=== PATIENT | male | born 1955 | race Caucasian/White ===

== ENCOUNTER 2021-09-22 08:17 | Outpatient (RCR) | payer MEDICARE, OTHER, SELFPAY ==
--- NOTE | ~2021-09-22 | XR_ITS ---
EXAMINATION: XR CHEST CLINICAL INFORMATION: pre-screen, r/o bleb COMPARISON: None TECHNIQUE: 2 views of the chest were obtained. FINDINGS: There is right-sided PICC with tip at mid SVC. No pneumothorax, airspace consolidation, pleural reaction or effusion. The costophrenic sulci are clear. There are no bullous changes or visible labs on plain film. If there is clinical concern to assess for occult volar collapse, then CT chest would be recommended for further evaluation. The heart is normal in size. The hilar and mediastinal contours are normal. Vascularity unremarkable. Bony structures are unremarkable. XR/XR chest 2V IMPRESSION: -PICC line with tip at mid SVC. -No airspace consolidation or effusion.
--- NOTE | ~2021-09-22 | XR_ITS ---
EXAMINATION: XR TOES, RIGHT CLINICAL INFORMATION: Wound right great toe COMPARISON: None TECHNIQUE: 3 views of the right toes were obtained. FINDINGS: Technical limitation secondary to overlying bandage. No acute visible fracture or dislocation. Cortical defect along the tuft of the first distal phalanx. Suggestion of soft tissue defect along the first distal phalangeal soft tissues overlying the tuft. No soft tissue gas definitively visualized. Multi joint degenerative changes greatest in the midfoot. Joint spaces and alignment are otherwise maintained. Soft tissues are unremarkable. XR/XR toe RT min 2V IMPRESSION: 1. Technical limitation secondary to overlying bandage. 2. No acute visible fracture or dislocation. 3. Cortical defect along the tuft of the first distal phalanx. Suggestion of soft tissue defect along the first distal phalangeal soft tissues overlying the tuft. Osteomyelitis not excluded. If clinically warranted consider further evaluation with MRI.
[2021-11-14 14:26] LABS: MANUAL DIFF FLAG NO
[2021-11-14 14:43] LABS: Basophils Percent Auto 0.4 % (0-2); Eosinophils Absolute Auto 0.2 X10*3/uL (0.0-0.4); Eosinophils Percent Auto 4.6 % (0-4); Hematocrit 32.3 % (42.0-52.0); Hemoglobin 10.2 g/dl (14.0-18.0); Imm Gran Abs Auto 0.03 X10*3/uL (0.00-0.03); Imm Gran Pct Auto 0.6 % (0.0-0.4); Lymphocytes Absolute Auto 1.9 X10*3/uL (1.2-4.9); Lymphocytes Percent Auto 39.5 % (20-40); Mean Corpuscular HGB Conc 31.6 g/dl (31.0-36.0); Mean Corpuscular Hemoglobin 28.5 pg (27.0-33.0); Mean Corpuscular Volume 90.2 fL (80.0-98.0); Mean Platelet Volume 9.9 fL (9.4-12.4); Monocytes Absolute Auto 0.4 X10*3/uL (0.1-1.2); Monocytes Percent Auto 7.9 % (2-11); Neutrophils Absolute Auto 2.2 x10*3/uL (2.0-8.3); Platelet Count 130 X10*3/uL (160-400); Red Blood Count 3.58 X10*6/uL (4.60-5.80); Red Cell Distribution Width 13.9 % (11.0-16.0); White Blood Count 4.8 X10*3/uL (4.8-10.8)
[2021-11-14 15:05] LABS: Anion Gap 12 (12-20); Blood Urea Nitrogen 26 mg/dL (9-16); C Reactive Protein 0.42 mg/dL (< or = 0.50); Calcium 9.2 mg/dL (8.4-10.2); Carbon Dioxide 31 mmol/L (22-29); Chloride 105 mmol/L (96-108); Estimated Glomerular Filt Rate > 60; Glucose Random 125 mg/dL (60-115); Potassium 5.7 mmol/L (3.3-5.1); Sodium 142 mmol/L (135-145)
[2021-11-14 16:12] LABS: Erythrocyte Sedimentation Rate 30 MM/HR (0-15)
[2021-11-15 04:21] LABS: Estimated Average Glucose 117 mg/dL; Hemoglobin A1c % 5.7 %
== END 2022-01-11 10:20 | disposition home or self-care (01) ==
LOC: HO.WCC 08:17
PROVIDERS: PCP Internal Medicine; Visit Provider Surgery
DX: E11.621 Type 2 diabetes mellitus with foot ulcer (principal); L97.512 Non-pressure chronic ulcer of other part of right foot with fat layer exposed; E11.69 Type 2 diabetes mellitus with other specified complication; M86.071 Acute hematogenous osteomyelitis, right ankle and foot; E11.40 Type 2 diabetes mellitus with diabetic neuropathy, unspecified; I10 Essential (primary) hypertension; Z79.2 Long term (current) use of antibiotics; Z86.19 Personal history of other infectious and parasitic diseases
CPT/HCPCS: 11042; 11043; 11044; 36415; 71046; 73660; 80048; 83036; 84134; 85025; 85652; 86140; 87071; 87073; 87076; 87077; 87185; 87186; 87205; 88304; 88305; 88311; 99212

== ENCOUNTER 2021-10-13 19:30 | Inpatient (IN) | payer MEDICARE, SELFPAY ==
--- NOTE | ~2021-10-13 | XR_ITS ---
EXAMINATION: XR FOOT, RIGHT CLINICAL INFORMATION: Evaluate for osteomyelitis. COMPARISON: Radiograph of the right foot dated from 09/27/2021. TECHNIQUE: AP, lateral, and oblique views of the right foot. FINDINGS: Complex examination. Significant progression of the cortical disruption and erosive changes in the phalanges of the first toe with also increased soft tissue thickening. Redemonstration of an underlying subcutaneous laceration in the first toe. Punctate foreign bodies are not excluded. Ankylosis and irregularities across the intertarsal and tarsometatarsal joints, similar to prior. No acute fractures. XR/XR foot RT min 3V IMPRESSION: Markedly increased osseous destruction and erosions in the first toe concerning for progression of osteomyelitis. Ankylosis and irregular margins of multiple intertarsal and tarsometatarsal joints appear similar to prior. Superimposed infection of these joints is difficult to exclude radiographically.
--- NOTE | ~2021-10-13 | US_ITS ---
EXAMINATION: RIGHT LOWER EXTREMITY DEEP VENOUS ULTRASOUND CLINICAL INFORMATION: Right lower extremity pain and edema. COMPARISON: Right lower extremity DVT study 02/12/2018 and same day right foot x-rays TECHNIQUE: Duplex Doppler imaging with compression maneuvers were performed of the right lower extremity deep venous system. FINDINGS: The visualized common femoral, femoral and popliteal veins demonstrate normal compressibility and color flow without evidence of venous thrombosis. Visualized portions of the calf veins demonstrate normal color fill-in suggesting patency. There is no evidence of a Bass's cyst. Several mildly prominent lymph nodes are noted in the right inguinal region, likely reactive. US/US venous duplex LE RT IMPRESSION: No evidence of deep venous thrombosis involving the right lower extremity.
[2021-10-13 19:36] VITALS: BP 121/76; PULSE 75; RESP 16; TEMP 36.6; O2SAT 97; BMI 35.5
--- NOTE | 2021-10-13 20:24 | ED_ITS ---
HPI - Wound/Laceration General Chief Complaint: Wound/Laceration Stated Complaint: toe inj, diabetic Time Seen by Provider: 10/13/21 20:04 Source: patient Mode of arrival: ambulatory Limitations: no limitations History of Present Illness HPI narrative: Patient is a 66-year-old male with is past medical history of type 2 diabetes, charcot foot, hypertension, hypercholesterolemia. He presents to the emergency department for evaluation of his right great toe wounds. He reports that the onset of this is just over 1 month ago when began with an ulcer to the tip of his toe. He reports that he has been evaluated in the emergency department multiple times for this, although, there were no available records for review, and he is followed by [facility]. He reports he was last on oral doxycycline 1 week ago at which point he had completed a 10 day course. He states that he is awaiting his first appointment with infectious disease next week. [facility] and he reports they debrided the ulcer to his medial toe, and then advised him to come to the emergency department for further treatment. Currently, he reports that the redness to his foot and decreased swelling have improved since recently, however, the ulcer to the right medial great toe is worse with foul smelling yellow drainage. He has pain along the medial aspect of his right leg, with swelling and erythema. Denies any pain to the foot, has neuropathy for which he is prescribed gabapentin. Denies fevers, chills, radiation of the pain up his leg, chest pain, shortness of breath, dyspnea with exertion. Patient reports that he is mostly compliant with his insulin for diabetes, though he does admit that he may miss some dosages, reports his typical fasting blood glucose levels are around 200. Related Data Home Medications Medication Instructions Recorded Confirmed atorvastatin 20 mg tablet 1 tab PO DAILY 10/13/21 10/13/21 gabapentin 300 mg capsule 1 cap PO TID 10/13/21 10/13/21 insulin aspart U-100 100 unit/mL 12 unit SUBCUT TIDWM 10/13/21 10/13/21 (3 mL) subcutaneous pen (Novolog Flexpen U-100 Insulin aspart) insulin detemir U-100 100 unit/mL 60 unit SUBCUT BID 10/13/21 10/13/21 subcutaneous solution (Levemir U-100 Insulin) lisinopril 30 mg tablet 1 tab PO DAILY 10/13/21 10/13/21 metoprolol succinate 50 mg 75 mg PO DAILY 10/13/21 10/13/21 tablet,extended release 24 hr Allergies Allergy/AdvReac Type Severity Reaction Status Date / Time No Known Allergies Allergy Verified 10/13/21 19:43 [No Known Allergies*] Review of Systems Verdana 4l Review of Systems: Verdana 4d [place] 4Bd Constitutional: [place] 4d No weight loss, fever, chills, weakness or fatigue. [place] 4Bd HEENT: [place] 4d No visual loss, blurred vision, double vision or yellow sclera. No hearing loss, sneezing, congestion, runny nose or sore throat. [place] 4Bd Skin: Ulcers to right great toe as noted in HPI Cardiovascular: No chest pain, chest pressure or chest discomfort. No palpi tations or pedal edema. Respiratory: No shortness of breath, cough or sputum production. Gastrointestinal: No anorexia, nausea, vomiting or diarrhea. No abdominal pain or blood in stool. Genitourinary: No burning micturition. No urinary frequency or incontinence. Neurologic: + numbness and tingling bilateral feet. No headache, dizziness, syncope. Musculoskeletal: No muscle pain, back pain, joint pain or stiffness. Hematologic: No bleeding or bruising. Lymphatics: No enlarged lymph nodes. Psychiatric:No depression or anxiety. Endocrine: No polyuria or polydipsia. [facility] Past Medical History Attestation statement: The following information was validated with the patient. Source: old records reviewed Social History Social History Advance Directives: No Advance Directives Information Provided: Yes Physical Exam Verdana 4l Vital Signs: Verdana 4d Verdana 4d Vital Signs: Verdana 4d [place] 4Bd Last Vital Signs Verdana 4d Threshing Operator New 4d Threshing Operator New 4d Temp 97.8 F 10/13/21 19:36 Threshing Operator New 4d Pulse 75 10/13/21 19:36 Threshing Operator New 4d Resp 16 10/13/21 19:36 BP 121/76 10/13/21 19:36 Pulse Ox 97 10/13/21 19:36 BMI result Body Mass Index 32.2 Vital signs have been reviewed as normal and appeared to be correct. Blood pressure normal.? Heart rate normal.? Respiration rate normal. Temperature nor mal.? Oxygen saturation normal. Appearance: Alert.?Oriented to person, place and time. No acute distress.?Normal affect. Eyes: Pupils equal, round and reactive to light.? ENT: Pharynx normal.?? Neck: Normal inspection.? Neck supple.?? CVS: Heart sounds normal. Normal heart rate and rhythm.? Pulses normal.?? Respiratory: No respiratory distress.? Lung sounds clear to auscultation bilaterally?? Abdomen: Soft and non-tender. Normoactive bowel sounds. No pulsatile mass.?? Extremities: 2+ pitting edema of the right lower extremities, with pain moving up medial aspect. No calf ttp? Neuro: Moves all extremities spontaneously. Sensation intact bilaterally. No focal neuro deficits. Ambulates with normal steady gait. Skin: Ulceration to tip of right great toe; [id number] pink and red granulation tissue within the wound bed with erythema and macerated tissue to the plantar the right great toe and its base. The right medial toe has a round 2 cm ul ceration, 0.5 cm depth with erythematous wound edge and black tissue on wound bed. Erythema extending base of the toes and along the medial aspect of foot with macerated tissue on the great toe. Course Course Course Narrative: Patient is a 66-year-old diabetic being evaluated for right great toe ulcers. He is well-appearing not appear toxic, afebrile, normotensive, not tachycardic. Given his history and physical exam there is cellulitis surrounding and concern for osteomyelitis, CBC, CMP, lactic acid, blood cultures, ESR, CRP ordered in addition to x-ray of the right foot. Obtained wound culture of the right great toe medial ulceration. Will treat empirically with Zosyn IV and Vanco IV. Given the degree swelling to his right lower leg in addition to pain, will obtain an ultrasound to exclude DVT. Reevaluation(s) Reevaluation #1: CBC reveals anemia with hemoglobin 9.3 and hematocrit 28.5, appears to be chronic in comparison to February 2018 hemoglobin 10.5 hematocrit 29.9. BUN and creatinine are elevated at 47 and 1.76, most recent comparable labs able to be reviewed from February 2018 indicated BUN of 14 creatinine 1.06. Lactic acid is normal at 1.4. His CRP is significantly elevated at 19.56, and ESR 109. X-ray reveals osseous destruction and erosion of the 1st toe concerning for os teomyelitis. General surgery Dr. Wakefield contacted for consultation, he is aware and plans to evaluate patient tomorrow morning. Time: 22:16 Reevaluation #2: Spoke with Dr. Mahajan from hospitalist service, patient accepted for admission. Time: 22:42 MDM - Wound/Laceration Medical Records Attestation: I reviewed the patient's medical records. Lab Data Attestation: I reviewed the patient's lab results. Result diagrams: 10/13/21 20:49 10/13/21 20:49 Labs: Lab Results 10/13/21 10/13/21 10/13/21 Range/Units 20:49 20:49 20:49 WBC 8.5 (4.8-10.8) X10*3/uL RBC 3.26 L (4.60-5.80) X10*6/uL Hgb 9.3 L (14.0-18.0) g/dl Hct 28.5 L (42.0-52.0) % MCV 87.4 (80.0-98.0) fL MCH 28.5 (27.0-33.0) pg MCHC 32.6 (31.0-36.0) g/dl RDW 13.4 (11.0-16.0) % Plt Count 223 (160-400) X10*3/uL MPV 9.2 L (9.4-12.4) fL Immature Gran % (Auto) 0.4 (0.0-0.4) % Neut % (Auto) 60.8 (45-73) % Lymph % (Auto) 27.3 (20-40) % [place] % (Auto) 9.9 (2-11) % Eos % (Auto) 1.4 (0-4) % Baso % (Auto) 0.2 (0-2) % Lymph # (Auto) 2.3 (1.2-4.9) X10*3/uL [place] # (Auto) 0.8 (0.1-1.2) X10*3/uL Eos # (Auto) 0.1 (0.0-0.4) X10*3/uL Baso # (Auto) 0.0 (0.0-0.2) X10*3/uL Abs Immat Gran (auto) 0.03 (0.00-0.03) X10*3/uL Absolute Neuts (auto) 5.2 (2.0-8.3) x10*3/uL Absolute Nucleated RBC 0.000 (0.0-0.012) X10*3/uL Nucleated RBC % (auto) 0.0 (0.0-0.2) /100WBC ESR 109 H (0-15) MM/HR Sodium 140 (135-145) mmol/L Potassium 4.6 (3.3-5.1) mmol/L Chloride 102 (96-108) mmol/L Carbon Dioxide 29 (22-29) mmol/L Anion Gap 14 (12-20) BUN 47 H (9-16) mg/dL Creatinine 1.76 H (0.5-1.4) mg/dL Estim Creat Clear Calc 60.8 Estimated GFR 39 Random Glucose 145 H (60-115) mg/dL Lactic Acid (0.5-2.0) mmol/L Calcium 9.3 (8.4-10.2) mg/dL Magnesium 2.2 (1.6-2.6) mg/dL Total Bilirubin 0.6 (0.0-1.0) mg/dL AST 11 (5-37) U/L ALT 10 (0-40) U/L Alkaline Phosphatase 83 (39-117) U/L C-Reactive Protein 19.56 H (< or = 0.50) mg/dL B-Natriuretic Peptide (<100) pg/mL Total Protein 7.7 (6.5-8.0) g/dL Albumin 3.4 L (3.5-5.0) g/dL 10/13/21 10/13/21 Range/Units 20:49 20:49 WBC (4.8-10.8) X10*3/uL RBC (4.60-5.80) X10*6/uL Hgb (14.0-18.0) g/dl Hct (42.0-52.0) % MCV (80.0-98.0) fL MCH (27.0-33.0) pg MCHC (31.0-36.0) g/dl RDW (11.0-16.0) % Plt Count (160-400) X10*3/uL MPV (9.4-12.4) fL Immature Gran % (Auto) (0.0-0.4) % Neut % (Auto) (45-73) % Lymph % (Auto) (20-40) % [place] % (Auto) (2-11) % Eos % (Auto) (0-4) % Baso % (Auto) (0-2) % Lymph # (Auto) (1.2-4.9) X10*3/uL [place] # (Auto) (0.1-1.2) X10*3/uL Eos # (Auto) (0.0-0.4) X10*3/uL Baso # (Auto) (0.0-0.2) X10*3/uL Abs Immat Gran (auto) (0.00-0.03) X10*3/uL Absolute Neuts (auto) (2.0-8.3) x10*3/uL Absolute Nucleated RBC (0.0-0.012) X10*3/uL Nucleated RBC % (auto) (0.0-0.2) /100WBC ESR (0-15) MM/HR Sodium (135-145) mmol/L Potassium (3.3-5.1) mmol/L Chloride (96-108) mmol/L Carbon Dioxide (22-29) mmol/L Anion Gap (12-20) BUN (9-16) mg/dL Creatinine (0.5-1.4) mg/dL Estim Creat Clear Calc Estimated GFR Random Glucose (60-115) mg/dL Lactic Acid 1.4 (0.5-2.0) mmol/L Calcium (8.4-10.2) mg/dL Magnesium (1.6-2.6) mg/dL Total Bilirubin (0.0-1.0) mg/dL AST (5-37) U/L ALT (0-40) U/L Alkaline Phosphatase (39-117) U/L C-Reactive Protein (< or = 0.50) mg/dL B-Natriuretic Peptide 112 H (<100) pg/mL Total Protein (6.5-8.0) g/dL Albumin (3.5-5.0) g/dL Imaging Data right foot x-ray: Attestation: I personally reviewed and interpreted this imaging study as follows: Radiologist's impression: IMPRESSION: Markedly increased osseous destruction and erosions in the first toe concerning for progression of osteomyelitis. ? Ankylosis and irregular margins of multiple intertarsal and tarsometatarsal joints appear similar to prior. Superimposed infection of these joints is difficult to exclude radiographically. Right LE US: Attestation: I personally reviewed and interpreted this imaging study as follows: Radiologist's impression: IMPRESSION: No evidence of deep venous thrombosis involving the right lower extremity. Discharge Plan Discharge Clinical Impression: Diabetic ulcer of right great toe
[2021-10-13 20:57] LABS: MANUAL DIFF FLAG NO
[2021-10-13 20:58] LABS: Basophils Percent Auto 0.2 % (0-2); Eosinophils Absolute Auto 0.1 X10*3/uL (0.0-0.4); Eosinophils Percent Auto 1.4 % (0-4); Hematocrit 28.5 % (42.0-52.0); Hemoglobin 9.3 g/dl (14.0-18.0); Imm Gran Abs Auto 0.03 X10*3/uL (0.00-0.03); Imm Gran Pct Auto 0.4 % (0.0-0.4); Lymphocytes Absolute Auto 2.3 X10*3/uL (1.2-4.9); Lymphocytes Percent Auto 27.3 % (20-40); Mean Corpuscular HGB Conc 32.6 g/dl (31.0-36.0); Mean Corpuscular Hemoglobin 28.5 pg (27.0-33.0); Mean Corpuscular Volume 87.4 fL (80.0-98.0); Mean Platelet Volume 9.2 fL (9.4-12.4); Monocytes Absolute Auto 0.8 X10*3/uL (0.1-1.2); Monocytes Percent Auto 9.9 % (2-11); Neutrophils Absolute Auto 5.2 x10*3/uL (2.0-8.3); Neutrophils Percent Auto 60.8 % (45-73); Platelet Count 223 X10*3/uL (160-400); Red Blood Count 3.26 X10*6/uL (4.60-5.80); Red Cell Distribution Width 13.4 % (11.0-16.0); White Blood Count 8.5 X10*3/uL (4.8-10.8)
[2021-10-13 21:08] LABS: Lactic Acid 1.4 mmol/L (0.5-2.0)
[2021-10-13 21:11] VITALS: BMI 32.2
[2021-10-13 21:17] LABS: Alanine Aminotransferase 10 U/L (0-40); Albumin Level 3.4 g/dL (3.5-5.0); Alkaline Phosphatase 83 U/L (39-117); Anion Gap 14 (12-20); Aspartate Amino Transferase 11 U/L (5-37); Bilirubin Total 0.6 mg/dL (0.0-1.0); Blood Urea Nitrogen 47 mg/dL (9-16); C Reactive Protein 19.56 mg/dL (< or = 0.50); Calcium 9.3 mg/dL (8.4-10.2); Carbon Dioxide 29 mmol/L (22-29); Chloride 102 mmol/L (96-108); Creatinine Clr Calc Pharmacy 60.8; Estimated Glomerular Filt Rate 39; Glucose Random 145 mg/dL (60-115); Magnesium 2.2 mg/dL (1.6-2.6); Potassium 4.6 mmol/L (3.3-5.1); Sodium 140 mmol/L (135-145); Total Protein 7.7 g/dL (6.5-8.0)
[2021-10-13 21:18] LABS: B Type Natriuretic Peptide 112 pg/mL (<100)
[2021-10-13 21:30] LABS: Erythrocyte Sedimentation Rate 109 MM/HR (0-15)
[2021-10-13] MEDS: Piperacillin Sodium/Tazobactam 3.375 GM in 0.9 % Sodium Chloride 50 ML IV (21:36)
--- NOTE | 2021-10-13 21:38 | PHA.MEDREC ---
Pharmacy Consult ? Medication Reconciliation Pharmacy has completed the medication reconciliation.
--- NOTE | 2021-10-13 21:45 | PHA.PROG ---
Admission Date/Time: Indication: other, skin Weight in k.3 kg Adjusted body weight in K.78 [place] body weight in K.1 Obesity Dosing Indication % IBW: Serum Creatinine - Last 168 Hours 10/13/21 20:49 Creatinine 1.76 H Estimated CrCl and GFR - Last 168 Hours 10/13/21 20:49 Estim Creat Clear Calc 60.8 Estimated GFR 39 Vancomycin Loading Dose: 1750 Current Vancomycin Dosing Regimen: 1250mg q24h Vancomycin Monitoring using AUC goal of 400 - 600 range with trough as surrogate marker:auc 533; trough 14.3 Date and Time for next Vancomycin Level to be drawn: draw 10/15 @1900 Pharmacist Comments on Vancomycin Plan: used obese model since actual is >120% ibw Vancomycin dosing will take advantage of [employer] as a clinical decision support tool that uses Bayesian modeling to calculate individual patient's pharmacokinetic parameters and forecast the patient's drug concentration time course with the target goal AUC 24 range of 400 - 600 mg/L/hr.
[2021-10-13] MEDS: vancomycin HCL 1,000 MG, vancomycin HCL 750 MG in 0.9 % Sodium Chloride 500 ML 267.5 MG IV (22:10)
--- NOTE | 2021-10-13 22:41 | P.HPHOSP_ITS ---
History of Present Illness Date of Service: 10/13/21 Chief Complaint: diabetic foot ulcer 66-year-old male with a past medical history of hypertension, hyperlipidemia, diabetes, neuropathy, diabetic foot ulcer, char[place]ote foot presented the hospital with a chief complaint of right great toe ulcer. Patient reports that he has been having diabetic foot ulcers on the his right great toe tip and bottom for about 2 months and has been following with the wound clinic and over the past couple days he had ulcer on the medial side of the great toe; went to the wound clinic today who suggested him to go to the ER for possible debridement. Patient reports that he recently finished course of doxycycline about a week ago 40 ft infection. Denies any fevers. Denies any chest pain or palpitations. Denies any numbness tingling or focal weakness. Review of all other systems is negative except mentioned above ER course: Per ER team patient noted to have ulcers on his great toe, moderate erythema on the distal 3rd of the dorsum of the foot, tenderness, warmth; given IV vancomycin and Zosyn. X-ray showed osteomyelitis. Notified General surgery. PMFSH Pertinent family history: reviewed Social History Advance Directives: No Advance Directives Information Provided: Yes Meds Allergies Allergy/AdvReac Type Severity Reaction Status Date / Time No Known Allergies Allergy Verified 10/13/21 19:43 [No Known Allergies*] Active Medications: Current Medications Vancomycin HCl 1,000 mg/Vancomycin HCl 750 mg/ Sodium Chloride 535 mls @ 267.5 mls/hr IV ONCE ONE Stop: 10/13/21 22:50 Last Admin: 10/13/21 22:10 Dose: 267.5 mls/hr Documented by: Vancomycin HCl 1,250 mg/ (Sodium Chloride) 250 mls @ 166.667 mls/hr IV Q24H KELSEY Piperacillin Sod/Tazobactam (Sod 3.375 gm/ Sodium Chloride) 50 mls @ 100 mls/hr IV Q6H KELSEY Pharmacy Consult (Consult Rx Perform Med Rec) 1 each MISCELLANE ONCE PRN PRN Reason: Consult order Pharmacy Consult (Consult Rx Vancomycin Dosing) 1 each MISCELLANE DAILY PRN PRN Reason: Consult order Home Medications Medication Instructions Recorded Confirmed Last Taken Type atorvastatin 20 1 tab PO DAILY 02/11/2910/13/21 10/12/21 History mg tablet gabapentin 300 mg 1 cap PO TID 10/13/21 10/13/21 10/13/21 History capsule insulin aspart 12 unit SUBCUT 10/13/21 10/13/21 10/13/21 History U-100 100 unit/mL TIDWM (3 mL) subcutaneous pen (Novolog Flexpen U-100 Insulin aspart) insulin detemir 60 unit SUBCUT 10/13/21 10/13/21 10/13/21 History U-100 100 unit/mL BID subcutaneous solution (Levemir U-100 Insulin) lisinopril 30 mg 1 tab PO DAILY 10/13/21 10/13/21 10/13/21 History tablet metoprolol 75 mg PO DAILY 10/13/21 10/13/21 10/13/21 History succinate 50 mg tablet,extended release 24 hr Physical Exam Verdana 4l Vital Signs and Narrative: Verdana 4d Verdana 4d Vital Signs: Verdana 4d Verdana 4Bd Last Vital Signs Verdana 4d Ball Sorter New 4d Ball Sorter New 4d Temp 97.8 F 10/13/21 19:36 Ball Sorter New 4d Pulse 75 10/13/21 19:36 Ball S[place] New 4d Resp 16 10/13/21 19:36 BP 121/76 10/13/21 19:36 Pulse Ox 97 10/13/21 19:36 BMI result Body Mass Index 32.2 Gen: Appears be in no acute distress HEENT: NCAT, Moist mucosa. Pulmonary: Vesicular breath sounds, fair air entry CVS: Normal S1-S2 Abdomen: BS+, Soft, Nontender; Extremities: Warm well perfused; Noted to have ulcer on the tip of the great toe, medial side of the great toe, with dark tissue on the medial ulcer inside status post irrigation it appeared puentes colored. Pictures shown below Neuro: Alert and awake. Results Labs CBC and Chem 7: 10/13/21 20:49 10/13/21 20:49 Labs: Laboratory Results - last 24 hr 10/13/21 10/13/21 10/13/21 20:49 20:49 20:49 MCV 87.4 MCH 28.5 MCHC 32.6 RDW 13.4 Plt Count 223 MPV 9.2 L Immature Gran % (Auto) 0.4 Neut % (Auto) 60.8 Lymph % (Auto) 27.3 [place] % (Auto) 9.9 Eos % (Auto) 1.4 Baso % (Auto) 0.2 Lymph # (Auto) 2.3 [place] # (Auto) 0.8 Eos # (Auto) 0.1 Baso # (Auto) 0.0 Abs Immat Gran (auto) 0.03 Absolute Neuts (auto) 5.2 Absolute Nucleated RBC 0.000 Nucleated RBC % (auto) 0.0 ESR 109 H Anion Gap 14 Creatinine 1.76 H Estim Creat Clear Calc 60.8 Estimated GFR 39 Random Glucose 145 H Lactic Acid Calcium 9.3 Magnesium 2.2 Total Bilirubin 0.6 AST 11 ALT 10 Alkaline Phosphatase 83 C-Reactive Protein 19.56 H B-Natriuretic Peptide Total Protein 7.7 Albumin 3.4 L 10/13/21 10/13/21 20:49 20:49 MCV MCH MCHC RDW Plt Count MPV Immature Gran % (Auto) Neut % (Auto) Lymph % (Auto) [place] % (Auto) Eos % (Auto) Baso % (Auto) Lymph # (Auto) [place] # (Auto) Eos # (Auto) Baso # (Auto) Abs Immat Gran (auto) Absolute Neuts (auto) Absolute Nucleated RBC Nucleated RBC % (auto) ESR Anion Gap Creatinine Estim Creat Clear Calc Estimated GFR Random Glucose Lactic Acid 1.4 Calcium Magnesium Total Bilirubin AST ALT Alkaline Phosphatase C-Reactive Protein B-Natriuretic Peptide 112 H Total Protein Albumin Imaging Radiologist's Impressions: Impressions Foot X-Ray 10/13/21 21:18 IMPRESSION: Markedly increased osseous destruction and erosions in the first toe concerning for progression of osteomyelitis. Ankylosis and irregular margins of multiple intertarsal and tarsometatarsal joints appear similar to prior. Superimposed infection of these joints is difficult to exclude radiographically. Venous Duplex 10/13/21 22:01 IMPRESSION: No evidence of deep venous thrombosis involving the right lower extremity. Assessment and Plan (1) Diabetic ulcer of right great toe: Status: Acute Plan 66-year-old male with a past medical history of hypertension, hyperlipidemia, diabetes, diabetic foot ulcer , presented to the hospital with a chief complaint of right great toe ulcer. Admitted for further management of diabetic foot ulcer/ Cellulitis/ osteomyelitis Diabetic foot ulcer /cellulitis / osteomyelitis: foot x-ray showed: Markedly increased osseous destruction and erosions in the first toe concerning for progression of osteomyelitis.Ankylosis and irregular margins of multiple intertarsal and tarsometatarsal joints appear similar to prior. Superimposed infection of these joints is difficult to exclude radiographically. Continue IV vancomycin and Zosyn General surgery was made aware Will also consult ID for further recommendations. SILVA: Unknown baseline creatinine. Gentle IV fluids. Avoid nephrotoxins. History of hypertension: Patient on lisinopril metoprolol. hold lisinopril given SILVA History of diabetes: patient on Levemir U 100 -->60 units b.i.d., aspart U 100 -->12 units t.i.d. with meals at home. Will keep the patient on Lantus 45 units b.i.d. and insulin sliding scale for now. Adjust insulins as needed. DVT prophylaxis: Lovenox Code status: Full code Quality Stroke Does the patient have a stroke diagnosis?: No VTE Prior VTE?: No VTE Risk Level:: Medical - moderate - high VTE Device Contraindication: Treatment Not Indicated VTE Drug Contraindication: N/A - Med Ordered
[2021-10-13 23:03] LABS: COVID-19 Test Negative (Negative)
--- NOTE | 2021-10-13 23:20 | PC.NURSE ---
PT WILL BE MOVED TO THE MAIN ED REPORT GIVEN TO ИВАН LUNA WHO WILL RESUME PT CARE. PT HAS CALL [facility] IN PLACE.
[2021-10-14] VITALS (7 sets, daily range): BP systolic 119–173; BP diastolic 48–75; PULSE 49–82; RESP 18–20; TEMP 36.1–36.6; O2SAT 95–100; BMI 32.5
--- NOTE | 2021-10-14 03:10 | PC.NURSE ---
Report given to M/S RN. Plan for transport to floor.
[2021-10-14] MEDS: Enoxaparin Sodium 40 MG/0.4 ML SYRINGE SUBCUT ×2 (03:17→23:08)
[2021-10-14] MEDS: Piperacillin Sodium/Tazobactam 3.375 GM in 0.9 % Sodium Chloride 50 ML IV ×4 (04:00→23:08)
[2021-10-14 05:44] LABS: MANUAL DIFF FLAG NO
[2021-10-14 05:50] LABS: Basophils Percent Auto 0.1 % (0-2); Eosinophils Absolute Auto 0.2 X10*3/uL (0.0-0.4); Eosinophils Percent Auto 2.4 % (0-4); Hematocrit 28.3 % (42.0-52.0); Hemoglobin 8.9 g/dl (14.0-18.0); Imm Gran Abs Auto 0.04 X10*3/uL (0.00-0.03); Imm Gran Pct Auto 0.5 % (0.0-0.4); Lymphocytes Absolute Auto 2.3 X10*3/uL (1.2-4.9); Lymphocytes Percent Auto 31.1 % (20-40); Mean Corpuscular HGB Conc 31.4 g/dl (31.0-36.0); Mean Corpuscular Hemoglobin 28.1 pg (27.0-33.0); Mean Corpuscular Volume 89.3 fL (80.0-98.0); Mean Platelet Volume 9.7 fL (9.4-12.4); Monocytes Absolute Auto 0.8 X10*3/uL (0.1-1.2); Monocytes Percent Auto 10.6 % (2-11); Neutrophils Absolute Auto 4.2 x10*3/uL (2.0-8.3); Neutrophils Percent Auto 55.3 % (45-73); Platelet Count 206 X10*3/uL (160-400); Red Blood Count 3.17 X10*6/uL (4.60-5.80); Red Cell Distribution Width 13.4 % (11.0-16.0); White Blood Count 7.5 X10*3/uL (4.8-10.8)
[2021-10-14 06:18] LABS: Anion Gap 12 (12-20); Blood Urea Nitrogen 39 mg/dL (9-16); Carbon Dioxide 30 mmol/L (22-29); Chloride 102 mmol/L (96-108); Creatinine Clr Calc Pharmacy 84.7; Estimated Glomerular Filt Rate 57; Glucose Random 200 mg/dL (60-115); Potassium 5.1 mmol/L (3.3-5.1); Sodium 139 mmol/L (135-145)
[2021-10-14 07:19] LABS: Glucose, Whole Blood 174 mg/dL (60-115)
--- NOTE | 2021-10-14 07:46 | P.CONGS_ITS ---
History of Present Illness Consult details Consult date: 10/14/21 Narrative: 66 year old male patient with a history of DM, peripheral neuropathy, presenting from the wound care center with a non healing ulcer of the right great toe. She was seen earlier yesterday for a wound check and was noted to have an ulcer in the great toe with increased foul smelling discharge. He was sent to the ED and admitted to the medical service for IV antibiotics. He was previously on Doxy but was awaiting an infectious disease consultation at [facility] and was off antibiotics for about a week at the time of his admission. He reports pain and swelling in the right leg and ankle. Review of Systems Verdana 4l Review of Systems: Yes all other systems are reviewed and Verdana 4d are negative Verdana 4l Constitutional: Verdana 4d Constitutional: Verdana 4d Verdana 4d Denies chills, Denies fever(s), Denies headache(s) and Denies poor appetite Verdana 4l ENT: Verdana 4d Denies dizziness and Denies headache(s) Verdana 4l Cardiovascular: Verdana 4d Cardiovascular: Verdana 4d Verdana 4d Denies chest pain, Denies rapid heart rate, Denies palpitations and Denies slow heart rate Verdana 4l Respiratory: Verdana 4d Verdana 4d Respiratory: Verdana 4d Denies chest congestion, Denies cough, Denies pain on inspiration and Denies wheezing Verdana 4l Gastrointestinal: Verdana 4d Gastrointestinal: Verdana 4d Verdana 4d Denies abdominal pain, Denies bloating, Denies change in stool character, Denies constipation, Denies diarrhea, Denies nausea, Denies vomiting and Denies hematemesis Verdana 4l Musculoskeletal: Verdana 4d Musculoskeletal: Verdana 4d Verdana 4d Denies back pain, Reports arthralgias, Reports joint swelling and Reports numbness Verdana 4l Integumentary/Breasts: Verdana 4d Skin/Breast: Verdana 4d Verdana 4d Denies change in pigmentation, Denies erythema and Denies rash Verdana 4l Neurologic: Verdana 4d Denies dizziness, Denies headache(s) and Reports numbness Verdana 4l Psychiatric: Verdana 4d Verdana 4d Psychiatric: Verdana 4d Denies anxiety and Denies depression Verdana 4l Endocrine: Verdana 4d Verdana 4d Endocrine: Verdana 4d Denies palpitations Verdana 4l Hematologic/Lymphatic: Verdana 4d Hematologic/Lymphatic: Verdana 4d Verdana 4d Denies easy bleeding, Denies easy bruising and Denies lymphadenopathy Verdana 4l Allergic/Immunologic: Verdana 4d Allergic/Immunologic: Verdana 4d Verdana 4d Denies wheezing [facility] Social History Social History Household Members: Family Housing: House Do you presently have visiting nurse or other home services: No Patient Tobacco Use Status: Never used Tobacco Use of substances other than those prescribed or required for medical reasons: No Have you been hit, kicked, punched, or otherwise hurt by someone within the past year? If so, by whom?: No Do you feel safe in your current relationship?: Yes Is there a partner from a previous relationship who is making you feel unsafe now?: No Are you made to feel afraid or neglected: No Advance Directives: No Advance Directives Information Provided: Yes Do you have thoughts of harming others: None Do you have a plan to hurt others: No Plan Recently lost weight without trying: No Nutrition Risks: No Nutritional Risk Poor oral hygiene: No Meds Allergies Allergy/AdvReac Type Severity Reaction Status Date / Time No Known Allergies Allergy Verified 10/13/21 19:43 [No Known Allergies*] Active Medications: Current Medications Acetaminophen (Acetaminophen 325 Mg Tablet) 650 mg PO Q6H PRN PRN Reason: Pain, Mild (Pain Scale 1-3) Atorvastatin Calcium (Atorvastatin Calcium 20 Mg Tablet) 20 mg PO DAILY [facility] Dextrose (Dextrose 50 % 25 Gm/50 Ml Syringe) 25 gm IVPUSH Q15M PRN; Protocol PRN Reason: per Hypoglycemia Standing Ord. Enoxaparin Sodium (Enoxaparin Sodium 40 Mg/0.4 Ml Syringe) 40 mg SUBCUT Q24H [facility] Last Admin: 10/14/21 03:17 Dose: 40 mg Documented by: Gabapentin (Gabapentin 300 Mg Capsule) 300 mg PO TID [facility] Glucose (Glucose Gel 15 Gm Gel..Gram.) 15 gm PO Q15M PRN; Protocol PRN Reason: per Hypoglycemia Standing Ord. Vancomycin HCl 1,250 mg/ (Sodium Chloride) 250 mls @ 166.667 mls/hr IV Q24H [facility] Piperacillin Sod/Tazobactam (Sod 3.375 gm/ Sodium Chloride) 50 mls @ 100 mls/hr IV Q6H [facility] Last Infusion: 10/14/21 05:01 Dose: Infused Documented by: Insulin Glargine (Insulin Glargine,Hum.Rec.Anlog 100 Unit/Ml 10 Ml Vial) 45 unit SUBCUT BID [facility] Insulin Human Lispro (Insulin Lispro 100 Unit/Ml 3 Ml Vial) 0 unit SUBCUT QIDACHS [facility]; Protocol Melatonin (Melatonin 3 Mg Tablet) 6 mg PO BEDTIME PRN PRN Reason: Insomnia Metoprolol Succinate (Metoprolol Succinate Er 25 Mg Tab.Er.24h) 75 mg PO DAILY [facility]; Protocol Pharmacy Consult (Consult Rx Perform Med Rec) 1 each MISCELLANE ONCE PRN PRN Reason: Consult order Pharmacy Consult (Consult Rx Vancomycin Dosing) 1 each MISCELLANE DAILY PRN PRN Reason: Consult order Senna (Sennosides 8.6 Mg Tablet) 17.2 mg PO BEDTIME PRN PRN Reason: Constipation Sodium Chloride (0.9 % Sodium Chloride Flush 3 Ml Syringe) 3 ml IVFLUSH QSHIFT [facility] Last Admin: 10/14/21 01:45 Dose: Not Given Documented by: Home Medications Medication Instructions Recorded Confirmed Last Taken Type atorvastatin 20 1 tab PO DAILY 10/13/21 10/13/21 10/12/21 History mg tablet gabapentin 300 mg 1 cap PO TID 10/13/21 10/13/21 10/13/21 History capsule insulin aspart 12 unit SUBCUT 10/13/21 10/13/21 10/13/21 History U-100 100 unit/mL TIDWM (3 mL) subcutaneous pen (Novolog Flexpen U-100 Insulin aspart) insulin detemir 60 unit SUBCUT 10/13/21 10/13/21 10/13/21 History U-100 100 unit/mL BID subcutaneous solution (Levemir U-100 Insulin) lisinopril 30 mg 1 tab PO DAILY 10/13/21 10/13/21 10/13/21 History tablet metoprolol 75 mg PO DAILY 10/13/21 10/13/21 10/13/21 History succinate 50 mg tablet,extended release 24 hr Physical Exam Verdana 4l Vital Signs: Verdana 4d Verdana 4d Vital Signs: Verdana 4d Verdana 4Bd Last Vital Signs Verdana 4d Linux Admin New 4d Linux Admin New 4d Temp 97 F 10/14/21 07:15 Linux Admin New 4d Pulse 61 10/14/21 07:15 Linux Admin New 4d Resp 20 10/14/21 07:15 BP 135/64 10/14/21 07:15 Pulse Ox 95 10/14/21 07:15 BMI result Body Mass Index 32.5 Const: General: cooperative, comfortable and well developed Nutritional Appearance: well nourished Orientation/consciousness: patient oriented x3 Eyes: Sclerae: sclerae normal EOM: EOMs intact bilaterally Neck: Neck: Yes normal visual inspection Resp: Effort & Inspection: normal respiratory effort, no cough, no respiratory distress and no stridor Cardio: Jugular venous distension: no JVD GI: Inspection: Yes normal to inspection Palpation (GI): Soft to palpation, nontender, no guarding and not rigid Skin: General skin exam: dry skin Rashes: no rashes Neuro: General: patient oriented x3 and no focal motor deficits Extrem: Other: Ulcer of right great toe, debrided to bleeding viable tissue. Ulcer extends to bone. Wounds packed with Silver Alginate. General: Yes full ROM and Yes no clubbing, cyanosis or edema Psych: Appearance: grossly normal Results Labs Result diagrams: 10/14/21 05:26 10/14/21 05:26 Labs: Abnormal lab results 10/13/21 10/13/21 10/13/21 Range/Units 20:49 20:49 20:49 RBC 3.26 L (4.60-5.80) X10*6/uL Hgb 9.3 L (14.0-18.0) g/dl Hct 28.5 L (42.0-52.0) % MPV 9.2 L (9.4-12.4) fL Immature Gran % (Auto) (0.0-0.4) % Abs Immat Gran (auto) (0.00-0.03) X10*3/uL ESR 109 H (0-15) MM/HR Carbon Dioxide (22-29) mmol/L BUN 47 H (9-16) mg/dL Creatinine 1.76 H (0.5-1.4) mg/dL POC Glucose (60-115) mg/dL Random Glucose 145 H (60-115) mg/dL C-Reactive Protein 19.56 H (< or = 0.50) mg/dL B-Natriuretic Peptide (<100) pg/mL Albumin 3.4 L (3.5-5.0) g/dL 10/13/21 10/14/21 10/14/21 Range/Units 20:49 05:26 05:26 RBC 3.17 L (4.60-5.80) X10*6/uL Hgb 8.9 L (14.0-18.0) g/dl Hct 28.3 L (42.0-52.0) % MPV (9.4-12.4) fL Immature Gran % (Auto) 0.5 H (0.0-0.4) % Abs Immat Gran (auto) 0.04 H (0.00-0.03) X10*3/uL ESR (0-15) MM/HR Carbon Dioxide 30 H (22-29) mmol/L BUN 39 H (9-16) mg/dL Creatinine (0.5-1.4) mg/dL POC Glucose (60-115) mg/dL Random Glucose 200 H D (60-115) mg/dL C-Reactive Protein (< or = 0.50) mg/dL B-Natriuretic Peptide 112 H (<100) pg/mL Albumin (3.5-5.0) g/dL 10/14/21 Range/Units 07:15 RBC (4.60-5.80) X10*6/uL Hgb (14.0-18.0) g/dl Hct (42.0-52.0) % MPV (9.4-12.4) fL Immature Gran % (Auto) (0.0-0.4) % Abs Immat Gran (auto) (0.00-0.03) X10*3/uL ESR (0-15) MM/HR Carbon Dioxide (22-29) mmol/L BUN (9-16) mg/dL Creatinine (0.5-1.4) mg/dL POC Glucose 174 H (60-115) mg/dL Random Glucose (60-115) mg/dL C-Reactive Protein (< or = 0.50) mg/dL B-Natriuretic Peptide (<100) pg/mL Albumin (3.5-5.0) g/dL Short CBC 10/13/21 10/14/21 Range/Units 20:49 05:26 WBC 8.5 7.5 (4.8-10.8) X10*3/uL Hgb 9.3 L 8.9 L (14.0-18.0) g/dl Hct 28.5 L 28.3 L (42.0-52.0) % Plt Count 223 206 (160-400) X10*3/uL BMP 10/13/21 10/14/21 20:49 05:26 Sodium 140 139 Potassium 4.6 5.1 Chloride 102 102 Carbon Dioxide 29 30 H BUN 47 H 39 H Creatinine 1.76 H 1.27 Calcium 9.3 9.0 Liver Function 10/13/21 Range/Units 20:49 Total Bilirubin 0.6 (0.0-1.0) mg/dL AST 11 (5-37) U/L ALT 10 (0-40) U/L Alkaline Phosphatase 83 (39-117) U/L Albumin 3.4 L (3.5-5.0) g/dL All other labs normal. Assessment and Plan (1) Diabetic ulcer of right great toe: Status: Acute Plan 66 year old male patient with DM with a non-healing ulcer of the right great toe. Patient will likely need 6 weeks IV antibiotics for osteo, although there is a high likelihood of requiring an amputation of the great toe. Recommend daily dressing changes with Silver alginate and dry dressings. ID consult. Procedures Date of Service Date of Service: 10/14/21
[2021-10-14] MEDS: Metoprolol Succinate ER 25 MG TAB.ER.24H 75 MG PO (08:26)
[2021-10-14 08:28] LABS: Immature Retic Fraction 16.2 % (2.3-13.4); Retic HGB Equivalent 27.7 pg (30.0-35.0); Reticulocyte Percent 1.7 % (0.5-1.8); Reticulocytes Absolute 0.054 X10*6/uL (0.026-0.095)
[2021-10-14] MEDS: Gabapentin 300 MG CAPSULE PO ×3 (08:30→21:28)
[2021-10-14] MEDS: Insulin Glargine,Hum.rec.anlog 100 UNIT/ML 10 ML VIAL 45 UNIT SUBCUT ×2 (08:30→21:27)
[2021-10-14] MEDS: Atorvastatin Calcium 20 MG TABLET PO (08:30)
[2021-10-14] MEDS: 0.9 % Sodium Chloride Flush 3 ML SYRINGE IVFLUSH ×3 (08:30→23:09)
[2021-10-14] MEDS: Insulin Lispro 100 UNIT/ML 3 ML VIAL SUBCUT ×4 (08:30→21:27)
[2021-10-14 08:44] LABS: Iron 26 mcg/dL (45-160); Percent Iron Saturation 12 % (15-50); Total Iron Binding Capacity 209 mcg/dL (228-428); Unsaturated Iron Binding 183 ug/dL
[2021-10-14 08:49] LABS: Estimated Average Glucose 154 mg/dL
--- NOTE | 2021-10-14 09:02 | HE.PHANOTE ---
Vancomycin Dosing Addendum Patients Scr improved. Increased dose to 1500 mg q24h with next level 10/15/21 @1900.
[2021-10-14 09:07] LABS: Ferritin 240 ng/mL (20-250)
[2021-10-14 09:35] LABS: Vitamin B12 147 pg/mL (200-900)
--- NOTE | 2021-10-14 10:05 | PC.NURSE ---
Skin/wound assessment completed. Patient has Grade 3 diabetic ulcers to right tip of great toe and right medial great toe. Wounds cleansed with wound cleanser then silver alginate applied covered with non woven gauze and roll gauze. Cellulitis to right foot and lower extremity with edema. Both legs have dry flaky skin. Sween 24 moisturizer applied. No other skin issues noted at this time.
--- NOTE | 2021-10-14 10:28 | MHC.CM.PN ---
IMM 10/14/21, EMR REVIEWED, PT ADMITTED W/DIABETIC FOOT ULCER AND OSTEOMYELITIS, PT LIVES W/ELDERLY MOTHER, PT IS INDEPENDENT W/CARE, NO DME OTHER THAT A SPECIAL BOOT AND NO HOME SERVICES, DCP DISCUSSED W/PT AND PT REPORTS HE FEELS IF HE NEEDS IV ABX FOR 6 WKS HE WOULD BE ABLE TO DO IT AND HIS DTR MELVI [phone] COULD ASSIST IF NEEDED, PT PREFERS NOT TO GO TO [facility], PT UNSURE WHO HIS [facility] DOCTOR IS IT KEEPS CHANGING, HIS LAST PCP BEFORE CHANGE WAS DR PATRICK, PT EDUCATED ON HCP'S AND IS CURRENTLY DECLINING TO COMPLETE, D/C PLAN: HOME W/NEW VNA &HI FOR IV ABX VS HOME W/VNA &PT, FAMILY FOR TRANSPORT. MODERNA VACCINE X2
[2021-10-14] MEDS: Ferrous Sulfate 324 MG TABLET.DR PO (11:12)
[2021-10-14 11:23] LABS: Glucose, Whole Blood 231 mg/dL (60-115)
--- NOTE | 2021-10-14 11:40 | P.PNIM_ITS ---
Subjective Subjective Date of Service: 10/14/21 Physical Exam Verdana 4l Vital Signs: Verdana 4d Verdana 4d Vital Signs: Verdana 4d Verdana 4Bd Last Vital Signs Verdana 4d Engineering Operations Leader 4d Engineering Operations Leader New 4d Temp 97.3 F 10/14/21 11:13 Engineering Operations Leader New 4d Pulse 82 10/14/21 11:13 Engineering Operations Leader New 4d Resp 20 10/14/21 11:13 BP 119/72 10/14/21 11:13 Pulse Ox 98 10/14/21 11:13 BMI result Body Mass Index 32.5 Gen: in no acute distress HEENT: sclera anicteric, moist mucus membranes Neck: supple Lungs: clear to auscultation bilaterally Heart: regular rate and rhythm, no murmurs Abd: soft, non-tender, non-distended Ext: no edema Skin: plantar and medial ulcers of right great toe Neuro: alert and oriented x3, no focal findings Psych: appropriate affect Objective Data Active Medications Acetaminophen (Acetaminophen 325 Mg Tablet) 650 mg PO Q6H PRN PRN Reason: Pain, Mild (Pain Scale 1-3) Atorvastatin Calcium (Atorvastatin Calcium 20 Mg Tablet) 20 mg PO DAILY [facility] Last Admin: 10/14/21 08:30 Dose: 20 mg Documented by: MY Cyanocobalamin (Cyanocobalamin (Vitamin B-12) 1,000 Mcg/Ml Vial) 1,000 mcg IM DAILY@1500 [facility] Stop: 10/17/21 15:01 Dextrose (Dextrose 50 % 25 Gm/50 Ml Syringe) 25 gm IVPUSH Q15M PRN; Protocol PRN Reason: per Hypoglycemia Standing Ord. Enoxaparin Sodium (Enoxaparin Sodium 40 Mg/0.4 Ml Syringe) 40 mg SUBCUT Q24H [facility] Last Admin: 10/14/21 03:17 Dose: 40 mg Documented by: GLADYS Ferrous Sulfate (Ferrous Sulfate 324 Mg Tablet.) 324 mg PO DAILY [facility] Last Admin: 10/14/21 11:12 Dose: 324 mg Documented by: MY Gabapentin (Gabapentin 300 Mg Capsule) 300 mg PO TID [facility] Last Admin: 10/14/21 08:30 Dose: 300 mg Documented by: MY Glucose (Glucose Gel 15 Gm Gel..Gram.) 15 gm PO Q15M PRN; Protocol PRN Reason: per Hypoglycemia Standing Ord. Piperacillin Sod/Tazobactam (Sod 3.375 gm/ Sodium Chloride) 50 mls @ 100 mls/hr IV Q6H [facility] Last Admin: 10/14/21 11:12 Dose: 100 mls/hr Documented by: MY Vancomycin HCl 1,500 mg/ (Sodium Chloride) 500 mls @ 333.333 mls/hr IV Q24H [facility] Insulin Glargine (Insulin Glargine,Hum.Rec.Anlog 100 Unit/Ml 10 Ml Vial) 45 unit SUBCUT BID [facility] Last Admin: 10/14/21 08:30 Dose: 45 unit Documented by: MY Insulin Human Lispro (Insulin Lispro 100 Unit/Ml 3 Ml Vial) 0 unit SUBCUT QIDACHS [facility]; Protocol Last Admin: 10/14/21 11:13 Dose: 4 unit Documented by: MY Melatonin (Melatonin 3 Mg Tablet) 6 mg PO BEDTIME PRN PRN Reason: Insomnia Metoprolol Succinate (Metoprolol Succinate Er 25 Mg Tab.Er.24h) 75 mg PO DAILY [facility]; Protocol Last Admin: 10/14/21 08:26 Dose: 75 mg Documented by: MY Pharmacy Consult (Consult Rx Perform Med Rec) 1 each MISCELLANE ONCE PRN PRN Reason: Consult order Pharmacy Consult (Consult Rx Vancomycin Dosing) 1 each MISCELLANE DAILY PRN PRN Reason: Consult order Senna (Sennosides 8.6 Mg Tablet) 17.2 mg PO BEDTIME PRN PRN Reason: Constipation Sodium Chloride (0.9 % Sodium Chloride Flush 3 Ml Syringe) 3 ml IVFLUSH QSHIFT [facility] Last Admin: 10/14/21 08:30 Dose: 3 ml Documented by: MY Labs CBC & Chem 7: 10/14/21 05:26 10/14/21 05:26 Labs: Laboratory Results - last 24 hr 10/13/21 10/13/21 10/13/21 20:49 20:49 20:49 MCV 87.4 MCH 28.5 MCHC 32.6 RDW 13.4 Plt Count 223 MPV 9.2 L Immature Gran % (Auto) 0.4 Neut % (Auto) 60.8 Lymph % (Auto) 27.3 [place] % (Auto) 9.9 Eos % (Auto) 1.4 Baso % (Auto) 0.2 Lymph # (Auto) 2.3 [place] # (Auto) 0.8 Eos # (Auto) 0.1 Baso # (Auto) 0.0 Abs Immat Gran (auto) 0.03 Absolute Neuts (auto) 5.2 Absolute Nucleated RBC 0.000 Nucleated RBC % (auto) 0.0 ESR 109 H Absolute Retic Percent Retic Immature Retic Fraction Retic Hgb Equivalent Anion Gap 14 Estim Creat Clear Calc 60.8 Estimated GFR 39 POC Glucose Random Glucose 145 H Estimat Average Glucose Hemoglobin A1c % Lactic Acid Calcium 9.3 Magnesium 2.2 Iron TIBC % Saturation Unsat Iron Binding Ferritin Total Bilirubin 0.6 AST 11 ALT 10 Alkaline Phosphatase 83 C-Reactive Protein 19.56 H B-Natriuretic Peptide Total Protein 7.7 Albumin 3.4 L Vitamin B12 Folate COVID-19 (KATHI) COVID-[employer] 10/13/21 10/13/21 10/13/21 20:49 20:49 22:45 MCV MCH MCHC RDW Plt Count MPV Immature Gran % (Auto) Neut % (Auto) Lymph % (Auto) [place] % (Auto) Eos % (Auto) Baso % (Auto) Lymph # (Auto) [place] # (Auto) Eos # (Auto) Baso # (Auto) Abs Immat Gran (auto) Absolute Neuts (auto) Absolute Nucleated RBC Nucleated RBC % (auto) ESR Absolute Retic Percent Retic Immature Retic Fraction Retic Hgb Equivalent Anion Gap Estim Creat Clear Calc Estimated GFR POC Glucose Random Glucose Estimat Average Glucose Hemoglobin A1c % Lactic Acid 1.4 Calcium Magnesium Iron TIBC % Saturation Unsat Iron Binding Ferritin Total Bilirubin AST ALT Alkaline Phosphatase C-Reactive Protein B-Natriuretic Peptide 112 H Total Protein Albumin Vitamin B12 Folate COVID-19 (KATHI) Negative COVID-19 [employer] See Note 10/14/21 10/14/21 10/14/21 05:26 05:26 05:26 MCV 89.3 MCH 28.1 MCHC 31.4 RDW 13.4 Plt Count 206 MPV 9.7 Immature Gran % (Auto) 0.5 H Neut % (Auto) 55.3 Lymph % (Auto) 31.1 [place] % (Auto) 10.6 Eos % (Auto) 2.4 Baso % (Auto) 0.1 Lymph # (Auto) 2.3 [place] # (Auto) 0.8 Eos # (Auto) 0.2 Baso # (Auto) 0.0 Abs Immat Gran (auto) 0.04 H Absolute Neuts (auto) 4.2 Absolute Nucleated RBC 0.000 Nucleated RBC % (auto) 0.0 ESR Absolute Retic 0.054 Percent Retic 1.7 Immature Retic Fraction 16.2 H Retic Hgb Equivalent 27.7 L Anion Gap 12 Estim Creat Clear Calc 84.7 Estimated GFR 57 POC Glucose Random Glucose 200 H D Estimat Average Glucose 154 Hemoglobin A1c % 7.0 Lactic Acid Calcium 9.0 Magnesium Iron 26 L TIBC 209 L % Saturation 12 L Unsat Iron Binding 183 Ferritin 240 Total Bilirubin AST ALT Alkaline Phosphatase C-Reactive Protein B-Natriuretic Peptide Total Protein Albumin Vitamin B12 Folate COVID-19 (KATHI) COVID-19 [employer] 10/14/21 10/14/21 10/14/21 05:26 07:15 11:05 MCV MCH MCHC RDW Plt Count MPV Immature Gran % (Auto) Neut % (Auto) Lymph % (Auto) [place] % (Auto) Eos % (Auto) Baso % (Auto) Lymph # (Auto) [place] # (Auto) Eos # (Auto) Baso # (Auto) Abs Immat Gran (auto) Absolute Neuts (auto) Absolute Nucleated RBC Nucleated RBC % (auto) ESR Absolute Retic Percent Retic Immature Retic Fraction Retic Hgb Equivalent Anion Gap Estim Creat Clear Calc Estimated GFR POC Glucose 174 H 231 H Random Glucose Estimat Average Glucose Hemoglobin A1c % Lactic Acid Calcium Magnesium Iron TIBC % Saturation Unsat Iron Binding Ferritin Total Bilirubin AST ALT Alkaline Phosphatase C-Reactive Protein B-Natriuretic Peptide Total Protein Albumin Vitamin B12 147 L Folate 11.0 COVID-19 (KATHI) COVID-19 Clin Com Microbiology Microbiology Results: Microbiology 10/13/21 21:03 Gram Stain - Final Toe Right Great Routine Culture - Preliminary Culture in progress. Assessment and Plan (1) Diabetic osteomyelitis: Status: Acute Plan hospital d#2 66yo M with DM2, HTN, HLD, arthropathy/Charcot foot, neuropathy sent in by [facility] with 2 mo of worsening ulcers of great toe despite course of outpt doxycycline # DM2 foot ulcer with osteomyelitis - follow wound/blood cultures, continue pip/florencia + vanco d#2, ID consult pending, will likely need PICC line and 6wk of IV ABX and per Surgery has high likelihood of requiring eventual amputation - ulcers debrided to viable tissue at bedside by surgeon, daily wound care with silver alginate and dry dressing # normocytic anemia - due to B12 + Fe deficiency - replete B12 parenterally after checking intrinsic factor - replete Fe orally # SILVA - resolved with IV fluid hydration + holding lisinopril # HTN - continue metoprolol, holding lisinopril # HLD - continue atorvastatin # neuropathy - continue gabapentin # DM2, A1c 7 - basal/bolus insulin # VTE ppx - LMWH # dispo - anticipate home with VNA for IV ABX p PICC placement Quality Stroke Does the patient have a stroke diagnosis?: No VTE Prior VTE?: No VTE Risk Level:: Medical - moderate - high VTE Device Contraindication: Treatment Not Indicated VTE Drug Contraindication: N/A - Med Ordered
--- NOTE | 2021-10-14 11:57 | MHC.CM.PN ---
PER MULTIDISCIPLINARY ROUNDS PT [id number] AMP SO PLAN WILL BE FOR PICC LINE PLACEMENT ON SUNDAY IF BC'S ARE NEG AND HOME W/6WKS IV ABX W/HVNA AND [facility]LEO
--- NOTE | 2021-10-14 12:53 | MHC.CLN ---
NUTRITION CONSULT FOR DIABETIC ULCER. DIET=DIABETIC 2000 KCAL. ADDING GLUCERNA BID TO IMPROVE NUTRITIONAL INTAKE AND PROMOTE WOUND HEALING. SUPPLEMENT PROVIDES 474 KCALS, 20 G PROTEIN.
--- NOTE | 2021-10-14 13:34 | MHC.CM.PN ---
MIGUEL RECEIVED CALL FROM NILO [phone] FROM [employer] REPORTING PT IS 100% COVERED FOR ABX AND SHE CAN COME IN SUNDAY OR SUNDAY FOR TEACH W/PT AND DTR. PER NILO'S REQUEST MIGUEL WILL GIVE HER CONTACT NUMBER TO DTR SO THEY CAN ARRANGE TEACH.
[2021-10-14] MEDS: Cyanocobalamin (Vitamin B-12) 1,000 MCG/ML VIAL 1000 MCG IM (14:52)
[2021-10-14 16:19] LABS: Glucose, Whole Blood 198 mg/dL (60-115)
[2021-10-14 19:44] LABS: Glucose, Whole Blood 205 mg/dL (60-115)
[2021-10-14] MEDS: vancomycin HCL 1,500 MG in 0.9 % Sodium Chloride 500 ML 333.33 MG IV (21:26)
--- NOTE | 2021-10-14 21:43 | P.CNID_ITS ---
History of Present Illness Data of Consult Service Date: 10/14/21 Requesting physician: Ulices Rao Primary Care Provider: Francine Khan MD [facility] Reason for consult: right great toe redness He presents to hospital with worsening right great toe erythema as viewed in pictures. He has been seeing [facility] and is supposed to see me next week in clinic He has worsening drainage from wounds PMFSH Past Medical History Medical History B12 deficiency anemia Family History Family history: reviewed and not pertinent Social History Social History Household Members: Family Housing: House Do you presently have visiting nurse or other home services: No Patient Tobacco Use Status: Never used Tobacco service: No Current occupational status: disabled Meds Allergies Allergy/AdvReac Type Severity Reaction Status Date / Time No Known Allergies Allergy Verified 01/02/22 14:24 [No Known Allergies*] Active Medications: Current Medications Acetaminophen (Acetaminophen 325 Mg Tablet) 650 mg PO Q6H PRN PRN Reason: Pain, Mild (Pain Scale 1-3) Atorvastatin Calcium (Atorvastatin Calcium 20 Mg Tablet) 20 mg PO DAILY [facility] Last Admin: 10/14/21 08:30 Dose: 20 mg Documented by: Cyanocobalamin (Cyanocobalamin (Vitamin B-12) 1,000 Mcg/Ml Vial) 1,000 mcg IM DAILY@1500 [facility] Stop: 10/17/21 15:01 Last Admin: 10/14/21 14:52 Dose: 1,000 mcg Documented by: Dextrose (Dextrose 50 % 25 Gm/50 Ml Syringe) 25 gm IVPUSH Q15M PRN; Protocol PRN Reason: per Hypoglycemia Standing Ord. Enoxaparin Sodium (Enoxaparin Sodium 40 Mg/0.4 Ml Syringe) 40 mg SUBCUT Q24H [facility] Last Admin: 10/14/21 03:17 Dose: 40 mg Documented by: Ferrous Sulfate (Ferrous Sulfate 324 Mg Tablet.Dr) 324 mg PO DAILY [facility] Last Admin: 10/14/21 11:12 Dose: 324 mg Documented by: Gabapentin (Gabapentin 300 Mg Capsule) 300 mg PO TID [facility] Last Admin: 10/14/21 21:28 Dose: 300 mg Documented by: Glucose (Glucose Gel 15 Gm Gel..Gram.) 15 gm PO Q15M PRN; Protocol PRN Reason: per Hypoglycemia Standing Ord. Piperacillin Sod/Tazobactam (Sod 3.375 gm/ Sodium Chloride) 50 mls @ 100 mls/hr IV Q6H [facility] Last Infusion: 10/14/21 17:36 Dose: Infused Documented by: Vancomycin HCl 1,500 mg/ (Sodium Chloride) 500 mls @ 333.333 mls/hr IV Q24H [facility] Last Admin: 10/14/21 21:26 Dose: 333.33 mls/hr Documented by: Insulin Glargine (Insulin Glargine,Hum.Rec.Anlog 100 Unit/Ml 10 Ml Vial) 45 unit SUBCUT BID [facility] Last Admin: 10/14/21 21:27 Dose: 45 unit Documented by: Insulin Human Lispro (Insulin Lispro 100 Unit/Ml 3 Ml Vial) 0 unit SUBCUT QIDACHS [facility]; Protocol Last Admin: 10/14/21 21:27 Dose: 4 unit Documented by: Melatonin (Melatonin 3 Mg Tablet) 6 mg PO BEDTIME PRN PRN Reason: Insomnia Metoprolol Succinate (Metoprolol Succinate Er 25 Mg Tab.Er.24h) 75 mg PO DAILY [facility]; Protocol Last Admin: 10/14/21 08:26 Dose: 75 mg Documented by: Pharmacy Consult (Consult Rx Perform Med Rec) 1 each MISCELLANE ONCE PRN PRN Reason: Consult order Pharmacy Consult (Consult Rx Vancomycin Dosing) 1 each MISCELLANE DAILY PRN PRN Reason: Consult order Senna (Sennosides 8.6 Mg Tablet) 17.2 mg PO BEDTIME PRN PRN Reason: Constipation Sodium Chloride (0.9 % Sodium Chloride Flush 3 Ml Syringe) 3 ml IVFLUSH QSHIFT [facility] Last Admin: 10/14/21 16:53 Dose: 3 ml Documented by: Home Medications Medication Instructions Recorded Confirmed Last Taken Type atorvastatin 20 mg tablet 1 tab PO DAILY 10/13/21 10/13/21 10/12/21 History gabapentin 300 mg capsule 1 cap PO TID 10/13/21 10/13/21 10/13/21 History insulin aspart U-100 100 unit/mL 12 unit SUBCUT TIDWM 10/13/21 10/13/21 10/13/21 History (3 mL) subcutaneous pen (Novolog Flexpen U-100 Insulin aspart) insulin detemir U-100 100 unit/mL 60 unit SUBCUT BID 10/13/21 10/13/21 10/13/21 History subcutaneous solution (Levemir U-100 Insulin) lisinopril 30 mg tablet 1 tab PO DAILY 10/13/21 10/13/21 10/13/21 History metoprolol succinate 50 mg 75 mg PO DAILY 10/13/21 10/13/21 10/13/21 History tablet,extended release 24 hr methadone 10 mg/mL oral concentrate 38 mg PO DAILY 10/16/21 10/16/21 Unknown History Physical Exam Vital Signs: Vital Signs: Last Vital Signs Temp 97.9 F 10/14/21 19:07 Pulse 59 10/14/21 19:07 Resp 18 10/14/21 19:07 BP 173/75 H 10/14/21 19:07 Pulse Ox 100 10/14/21 19:07 BMI result Body Mass Index 32.5 Const: General: cooperative HENMT: Mouth: Normal oral and palatal mucosa present Eyes: General: appearance normal, both eyes and all related structures Pupils: Equal, round and reactive pupils present Resp: Effort & Inspection: normal respiratory effort Cardio: Rate: regular rate Rhythm: regular rhythm GI: Palpation (GI): Soft to palpation and nontender Skin: General skin exam: no rashes or lesions noted Neuro: Cranial nerves: Yes Equal, round and reactive pupils present Extrem: Other: right great toe erythema and open wounds and drainage Results Labs CBC & Chem 7: 10/19/21 06:27 10/19/21 06:40 Labs: Short CBC 10/14/21 Range/Units 05:26 WBC 7.5 (4.8-10.8) X10*3/uL Hgb 8.9 L (14.0-18.0) g/dl Hct 28.3 L (42.0-52.0) % Plt Count 206 (160-400) X10*3/uL BMP 10/14/21 05:26 Sodium 139 Potassium 5.1 Chloride 102 Carbon Dioxide 30 H BUN 39 H Creatinine 1.27 Calcium 9.0 Microbiology Microbiology Results: Microbiology 10/13/21 21:03 Toe Right Great Gram Stain - Final 10/13/21 21:03 Toe Right Great Routine Culture - Preliminary Culture in progress. Assessment and Plan (1) Diabetic osteomyelitis: Status: Acute (2) Diabetic ulcer of right great toe: Status: Acute There are signs of osteomyelitis on XRay He has Charcot joint He has diabetes Plan Would continue Vancomycin and Zosyn Would give six weeks IV possible and then po Doxycycline for two months.
[2021-10-15 04:00] VITALS: BP 173/75; PULSE 59; RESP 20; TEMP 37.1; O2SAT 96
[2021-10-15] MEDS: Piperacillin Sodium/Tazobactam 3.375 GM in 0.9 % Sodium Chloride 50 ML IV ×3 (04:40→17:25)
[2021-10-15 06:44] LABS: Anion Gap 11 (12-20); Blood Urea Nitrogen 21 mg/dL (9-16); C Reactive Protein 12.18 mg/dL (< or = 0.50); Calcium 8.6 mg/dL (8.4-10.2); Carbon Dioxide 30 mmol/L (22-29); Chloride 103 mmol/L (96-108); Creatinine Clr Calc Pharmacy 125.1; Estimated Glomerular Filt Rate > 60; Glucose Random 197 mg/dL (60-115); Potassium 5.2 mmol/L (3.3-5.1); Sodium 139 mmol/L (135-145)
[2021-10-15 08:00] VITALS: BP 172/79; PULSE 61; RESP 18; TEMP 36; O2SAT 97
[2021-10-15 08:12] LABS: Glucose, Whole Blood 216 mg/dL (60-115)
[2021-10-15] MEDS: lisinopriL 10 MG TABLET PO (08:15)
[2021-10-15] MEDS: Gabapentin 300 MG CAPSULE PO ×3 (08:15→20:27)
[2021-10-15] MEDS: Metoprolol Succinate ER 25 MG TAB.ER.24H 75 MG PO (08:15)
[2021-10-15] MEDS: Ferrous Sulfate 324 MG TABLET.DR PO (08:15)
[2021-10-15] MEDS: Atorvastatin Calcium 20 MG TABLET PO (08:16)
[2021-10-15] MEDS: Sodium Zirconium Cyclosilicate 10 GM POWD.PACK PO (08:16)
[2021-10-15] MEDS: 0.9 % Sodium Chloride Flush 3 ML SYRINGE IVFLUSH ×2 (08:17→15:06)
[2021-10-15] MEDS: Insulin Glargine,Hum.rec.anlog 100 UNIT/ML 10 ML VIAL 60 UNIT SUBCUT ×2 (08:59→20:28)
[2021-10-15] MEDS: Insulin Lispro 100 UNIT/ML 3 ML VIAL SUBCUT ×4 (09:00→20:27)
--- NOTE | 2021-10-15 10:08 | P.PNIM_ITS ---
Subjective Subjective Date of Service: 10/15/21 Interval History: R toe pain improved No fever/chills Review of Systems Review of Systems: Yes all other systems are reviewed and are negative Physical Exam Verdana 4l Vital Signs: Verdana 4d Verdana 4d Vital Signs: Verdana 4d Verdana 4Bd Last Vital Signs Verdana 4d Vmware Architect New 4d Vmware Architect New 4d Temp 96.8 F 10/15/21 08:00 Vmware Architect New 4d Pulse 61 10/15/21 08:00 Vmware Architect New 4d Resp 18 10/15/21 08:00 BP 172/79 H 10/15/21 08:00 Pulse Ox 97 10/15/21 08:00 BMI result Body Mass Index 32.5 Gen: in no acute distress HEENT: sclera anicteric, moist mucus membranes Neck: supple Lungs: clear to auscultation bilaterally Heart: regular rate and rhythm, no murmurs Abd: soft, non-tender, non-distended Ext: no edema Skin: plantar and medial ulcers of right great toe Neuro: alert and oriented x3, no focal findings Psych: appropriate affect Objective Data Active Medications Acetaminophen (Acetaminophen 325 Mg Tablet) 650 mg PO Q6H PRN PRN Reason: Pain, Mild (Pain Scale 1-3) Atorvastatin Calcium (Atorvastatin Calcium 20 Mg Tablet) 20 mg PO DAILY [facility] Last Admin: 10/15/21 08:16 Dose: 20 mg Documented by: MY Cyanocobalamin (Cyanocobalamin (Vitamin B-12) 1,000 Mcg/Ml Vial) 1,000 mcg IM DAILY@1500 [facility] Stop: 10/17/21 15:01 Last Admin: 10/14/21 14:52 Dose: 1,000 mcg Documented by: NEHA Dextrose (Dextrose 50 % 25 Gm/50 Ml Syringe) 25 gm IVPUSH Q15M PRN; Protocol PRN Reason: per Hypoglycemia Standing Ord. Enoxaparin Sodium (Enoxaparin Sodium 40 Mg/0.4 Ml Syringe) 40 mg SUBCUT Q24H [facility] Last Admin: 10/14/21 23:08 Dose: 40 mg Documented by: LAURI Ferrous Sulfate (Ferrous Sulfate 324 Mg Tablet.) 324 mg PO DAILY [facility] Last Admin: 10/15/21 08:15 Dose: 324 mg Documented by: MY Gabapentin (Gabapentin 300 Mg Capsule) 300 mg PO TID [facility] Last Admin: 10/15/21 08:15 Dose: 300 mg Documented by: MY Glucose (Glucose Gel 15 Gm Gel..Gram.) 15 gm PO Q15M PRN; Protocol PRN Reason: per Hypoglycemia Standing Ord. Piperacillin Sod/Tazobactam (Sod 3.375 gm/ Sodium Chloride) 50 mls @ 100 mls/hr IV Q6H [facility] Last Admin: 10/15/21 09:02 Dose: 100 mls/hr Documented by: MY Vancomycin HCl 1,500 mg/ (Sodium Chloride) 500 mls @ 333.333 mls/hr IV Q24H [facility] Last Infusion: 10/14/21 23:13 Dose: 0 mls/hr Documented by: LAURI Insulin Glargine (Insulin Glargine,Hum.Rec.Anlog 100 Unit/Ml 10 Ml Vial) 60 unit SUBCUT BID [facility] Last Admin: 10/15/21 08:59 Dose: 60 unit Documented by: MY Insulin Human Lispro (Insulin Lispro 100 Unit/Ml 3 Ml Vial) 0 unit SUBCUT QIDA [facility]; Protocol Last Admin: 10/15/21 09:00 Dose: 2 unit Documented by: MY Insulin Human Lispro (Insulin Lispro 100 Unit/Ml 3 Ml Vial) 10 unit SUBCUT TIDWM [facility] Lisinopril (Lisinopril 10 Mg Tablet) 10 mg PO DAILY [facility]; Protocol Last Admin: 10/15/21 08:15 Dose: 10 mg Documented by: MY Melatonin (Melatonin 3 Mg Tablet) 6 mg PO BEDTIME PRN PRN Reason: Insomnia Metoprolol Succinate (Metoprolol Succinate Er 25 Mg Tab.Er.24h) 75 mg PO DAILY [facility]; Protocol Last Admin: 10/15/21 08:15 Dose: 75 mg Documented by: MY Pharmacy Consult (Consult Rx Perform Med Rec) 1 each MISCELLANE ONCE PRN PRN Reason: Consult order Pharmacy Consult (Consult Rx Vancomycin Dosing) 1 each MISCELLANE DAILY PRN PRN Reason: Consult order Senna (Sennosides 8.6 Mg Tablet) 17.2 mg PO BEDTIME PRN PRN Reason: Constipation Sodium Chloride (0.9 % Sodium Chloride Flush 3 Ml Syringe) 3 ml IVFLUSH QSHIFT [facility] Last Admin: 10/15/21 08:17 Dose: 3 ml Documented by: MY Labs CBC & Chem 7: 10/14/21 05:26 10/15/21 06:04 Labs: Laboratory Results - last 24 hr 10/14/21 10/14/21 10/14/21 11:05 15:22 19:14 Anion Gap Estim Creat Clear Calc Estimated GFR POC Glucose 231 H 198 H 205 H Random Glucose Calcium C-Reactive Protein 10/15/21 10/15/21 06:04 07:59 Anion Gap 11 L Estim Creat Clear Calc 125.1 Estimated GFR > 60 POC Glucose 216 H Random Glucose 197 H Calcium 8.6 C-Reactive Protein 12.18 H ITS Impressions Foot X-Ray 10/13/21 21:18 IMPRESSION: Markedly increased osseous destruction and erosions in the first toe concerning for progression of osteomyelitis. Ankylosis and irregular margins of multiple intertarsal and tarsometatarsal joints appear similar to prior. Superimposed infection of these joints is difficult to exclude radiographically. Venous Duplex 10/13/21 22:01 IMPRESSION: No evidence of deep venous thrombosis involving the right lower extremity. Microbiology Microbiology Results: Microbiology 10/13/21 20:49 Blood Culture - Preliminary Blood - Venous No growth after 24 hours. 10/13/21 20:49 Blood Culture - Preliminary Blood - Venous No growth after 24 hours. 10/13/21 21:03 Gram Stain - Final Toe Right Great Routine Culture - Preliminary Culture in progress. Assessment and Plan (1) Diabetic osteomyelitis: Status: Acute Plan hospital d#3 66yo M with DM2, HTN, HLD, arthropathy/Charcot foot, neuropathy sent in by [facility] with 2 mo of worsening ulcers of great toe despite course of outpt doxycycline # DM2 foot ulcer with osteomyelitis - follow wound/blood cultures, continue pip/florencia + vanco d#3, ID consulted, if BCx negative will order PICC to be placed 10/17/20 and pt will get 6 wk of IV ABX [then 2 mo of doxy] - will need Surgery f/u; has high likelihood of requiring eventual amputation; ulcers debrided to viable tissue at bedside by surgeon; daily wound care with silver alginate and dry dressing # CONSTANTIN - replete Fe orally # B12 deficiency anemia - intrinsic factor antibody pending - pt on monthly parenteral B12 at PCP's office but level is still low; will replete with 1000 mcg IM daily x7d, then 1000 mcg IM weekly x 4 wk, then 1000 mcg IM monthly; check level in 1 mo; VNA can administer # SILVA - resolved with IV fluid hydration + holding lisinopril # HTN - continue metoprolol, resume lisinopril # hyperK - mild; give 1 dose SZC, recheck K in am # HLD - continue atorvastatin # neuropathy - continue gabapentin # DM2, A1c 7 - basal/bolus insulin # VTE ppx - LMWH # dispo - anticipate home with VNA for IV ABX p PICC placement possibly 10/17 Quality Stroke Does the patient have a stroke diagnosis?: No VTE Prior VTE?: No VTE Risk Level:: Medical - moderate - high VTE Device Contraindication: Treatment Not Indicated VTE Drug Contraindication: N/A - Med Ordered
[2021-10-15 11:59] VITALS: BP 147/65; PULSE 53; RESP 18; TEMP 36.3; O2SAT 99
[2021-10-15] MEDS: Insulin Lispro 100 UNIT/ML 3 ML VIAL 10 UNIT SUBCUT ×2 (12:11→17:26)
[2021-10-15 12:13] LABS: Glucose, Whole Blood 230 mg/dL (60-115)
[2021-10-15] MEDS: Cyanocobalamin (Vitamin B-12) 1,000 MCG/ML VIAL 1000 MCG IM (15:05)
[2021-10-15 15:36] VITALS: BP 161/69; PULSE 64; RESP 19; TEMP 36.3; O2SAT 100
[2021-10-15 16:38] LABS: Glucose, Whole Blood 250 mg/dL (60-115)
[2021-10-15] MEDS: Acetaminophen 325 MG TABLET 650 MG PO (17:33)
[2021-10-15 19:30] LABS: Vancomycin Trough 6.2 mcg/mL (10.0-20.0)
[2021-10-15 19:40] VITALS: BP 141/65; PULSE 61; RESP 18; TEMP 37.6; O2SAT 96
--- NOTE | 2021-10-15 19:47 | HE.PHANOTE ---
VANCOMYCIN DOSING ADDENDUM BASED ON TROUGH OF 6.2 DOSE CHANGED TO 1000MG Q 12 WITH PREDICTED AUC OF 416. NEXT TROUGH 10/16 @ 1900
[2021-10-15 20:19] LABS: Glucose, Whole Blood 174 mg/dL (60-115)
[2021-10-15] MEDS: vancomycin HCL 1,000 MG in 0.9 % Sodium Chloride 250 ML 270 MG IV (20:29)
[2021-10-15 23:20] VITALS: BP 166/72; PULSE 69; RESP 20; TEMP 36.7; O2SAT 100
[2021-10-16] MEDS: Enoxaparin Sodium 40 MG/0.4 ML SYRINGE SUBCUT ×2 (00:33→23:09)
[2021-10-16] MEDS: Piperacillin Sodium/Tazobactam 3.375 GM in 0.9 % Sodium Chloride 50 ML IV ×5 (00:34→23:09)
[2021-10-16] MEDS: 0.9 % Sodium Chloride Flush 3 ML SYRINGE IVFLUSH ×4 (00:35→21:14)
[2021-10-16 03:04] VITALS: BP 163/65; PULSE 56; RESP 20; TEMP 37.1; O2SAT 97
[2021-10-16 07:18] LABS: Anion Gap 11 (12-20); Blood Urea Nitrogen 13 mg/dL (9-16); Calcium 8.7 mg/dL (8.4-10.2); Carbon Dioxide 30 mmol/L (22-29); Chloride 102 mmol/L (96-108); Creatinine Clr Calc Pharmacy 137.9; Estimated Glomerular Filt Rate > 60; Glucose Random 106 mg/dL (60-115); Potassium 3.9 mmol/L (3.3-5.1); Sodium 139 mmol/L (135-145)
[2021-10-16 08:00] VITALS: BP 128/62; PULSE 53; RESP 18; TEMP 36.4; O2SAT 96
[2021-10-16 08:08] LABS: Glucose, Whole Blood 119 mg/dL (60-115)
[2021-10-16] MEDS: lisinopriL 20 MG TABLET PO (08:34)
[2021-10-16] MEDS: Ferrous Sulfate 324 MG TABLET.DR PO (08:35)
[2021-10-16] MEDS: vancomycin HCL 1,000 MG in 0.9 % Sodium Chloride 250 ML 270 MG IV (08:35)
[2021-10-16] MEDS: Gabapentin 300 MG CAPSULE PO ×3 (08:35→21:14)
[2021-10-16] MEDS: Atorvastatin Calcium 20 MG TABLET PO (08:35)
[2021-10-16] MEDS: Metoprolol Succinate ER 25 MG TAB.ER.24H 75 MG PO (08:35)
[2021-10-16] MEDS: Insulin Glargine,Hum.rec.anlog 100 UNIT/ML 10 ML VIAL 60 UNIT SUBCUT ×2 (08:37→21:13)
[2021-10-16] MEDS: Insulin Lispro 100 UNIT/ML 3 ML VIAL 10 UNIT SUBCUT ×3 (08:38→17:50)
--- NOTE | 2021-10-16 10:09 | P.PNIM_ITS ---
Subjective Subjective Date of Service: 10/16/21 Interval History: R foot pain controlled No fever No bacteremia Notes congestion + sore throat Review of Systems Review of Systems: Yes all other systems are reviewed and are negative Physical Exam Verdana 4l Vital Signs: Verdana 4d Verdana 4d Vital Signs: Verdana 4d Verdana 4Bd Last Vital Signs Verdana 4d Clinical Data Manager New 4d Clinical Data Manager New 4d Temp 97.6 F 10/16/21 08:00 Clinical Data Manager New 4d Pulse 53 10/16/21 08:00 Clinical Data Manager New 4d Resp 18 10/16/21 08:00 BP 128/62 10/16/21 08:00 Pulse Ox 96 10/16/21 08:00 BMI result Body Mass Index 32.5 Gen: in no acute distress HEENT: sclera anicteric, moist mucus membranes Neck: supple Lungs: clear to auscultation bilaterally Heart: regular rate and rhythm, no murmurs Abd: soft, non-tender, non-distended Ext: no edema Skin: plantar and medial ulcers of right great toe Neuro: alert and oriented x3, no focal findings Psych: appropriate affect Objective Data Active Medications Acetaminophen (Acetaminophen 325 Mg Tablet) 650 mg PO Q6H PRN PRN Reason: Pain, Mild (Pain Scale 1-3) Last Admin: 10/15/21 17:33 Dose: 650 mg Documented by: MY Atorvastatin Calcium (Atorvastatin Calcium 20 Mg Tablet) 20 mg PO DAILY [facility] Last Admin: 10/16/21 08:35 Dose: 20 mg Documented by: MY Cyanocobalamin (Cyanocobalamin (Vitamin B-12) 1,000 Mcg/Ml Vial) 1,000 mcg IM DAILY@1500 [facility] Stop: 10/17/21 15:01 Last Admin: 10/15/21 15:05 Dose: 1,000 mcg Documented by: MY Dextrose (Dextrose 50 % 25 Gm/50 Ml Syringe) 25 gm IVPUSH Q15M PRN; Protocol PRN Reason: per Hypoglycemia Standing Ord. Enoxaparin Sodium (Enoxaparin Sodium 40 Mg/0.4 Ml Syringe) 40 mg SUBCUT Q24H [facility] Last Admin: 10/16/21 00:33 Dose: 40 mg Documented by: LAURI Ferrous Sulfate (Ferrous Sulfate 324 Mg Tablet.) 324 mg PO DAILY [facility] Last Admin: 10/16/21 08:35 Dose: 324 mg Documented by: MY Gabapentin (Gabapentin 300 Mg Capsule) 300 mg PO TID [facility] Last Admin: 10/16/21 08:35 Dose: 300 mg Documented by: MY Glucose (Glucose Gel 15 Gm Gel..Gram.) 15 gm PO Q15M PRN; Protocol PRN Reason: per Hypoglycemia Standing Ord. Piperacillin Sod/Tazobactam (Sod 3.375 gm/ Sodium Chloride) 50 mls @ 100 mls/hr IV Q6H [facility] Last Infusion: 10/16/21 04:26 Dose: 0 mls/hr Documented by: LAURI Vancomycin HCl 1,000 mg/ (Sodium Chloride) 270 mls @ 270 mls/hr IV Q12H [facility] Last Admin: 10/16/21 08:35 Dose: 270 mls/hr Documented by: MY Insulin Glargine (Insulin Glargine,Hum.Rec.Anlog 100 Unit/Ml 10 Ml Vial) 60 unit SUBCUT BID [facility] Last Admin: 10/16/21 08:37 Dose: 60 unit Documented by: MY Insulin Human Lispro (Insulin Lispro 100 Unit/Ml 3 Ml Vial) 0 unit SUBCUT Q IDACHS [facility]; Protocol Last Admin: 10/16/21 08:38 Dose: Not Given Documented by: MY Non-Admin Reason: No Insulin Coverage Insulin Human Lispro (Insulin Lispro 100 Unit/Ml 3 Ml Vial) 10 unit SUBCUT TIDWM [facility] Last Admin: 10/16/21 08:38 Dose: 10 unit Documented by: MY Lisinopril (Lisinopril 20 Mg Tablet) 20 mg PO DAILY [facility]; Protocol Last Admin: 10/16/21 08:34 Dose: 20 mg Documented by: MY Melatonin (Melatonin 3 Mg Tablet) 6 mg PO BEDTIME PRN PRN Reason: Insomnia Metoprolol Succinate (Metoprolol Succinate Er 25 Mg Tab.Er.24h) 75 mg PO DAILY [facility]; Protocol Last Admin: 10/16/21 08:35 Dose: 75 mg Documented by: MY Pharmacy Consult (Consult Rx Perform Med Rec) 1 each MISCELLANE ONCE PRN PRN Reason: Consult order Pharmacy Consult (Consult Rx Vancomycin Dosing) 1 each MISCELLANE DAILY PRN PRN Reason: Consult order Senna (Sennosides 8.6 Mg Tablet) 17.2 mg PO BEDTIME PRN PRN Reason: Constipation Sodium Chloride (0.9 % Sodium Chloride Flush 3 Ml Syringe) 3 ml IVFLUSH QSHIFT [facility] Last Admin: 10/16/21 08:38 Dose: 3 ml Documented by: MY Labs CBC & Chem 7: 10/14/21 05:26 10/16/21 06:16 Labs: Laboratory Results - last 24 hr 10/15/21 10/15/21 10/15/21 11:58 15:42 18:59 Anion Gap Estim Creat Clear Calc Estimated GFR POC Glucose 230 H 250 H Random Glucose Calcium Vancomycin Trough 6.2 L 10/15/21 10/16/21 10/16/21 19:44 06:16 08:02 Anion Gap 11 L Estim Creat Clear Calc 137.9 Estimated GFR > 60 POC Glucose 174 H 119 H Random Glucose 106 D Calcium 8.7 Vancomycin Trough Microbiology Microbiology Results: Microbiology 10/13/21 21:03 Gram Stain - Final Toe Right Great Routine Culture - Final Staphylococcus aureus 10/13/21 20:49 Blood Culture - Preliminary Blood - Venous No growth after 48 hours. 10/13/21 20:49 Blood Culture - Preliminary Blood - Venous No growth after 48 hours. Assessment and Plan (1) Diabetic osteomyelitis: Status: Acute Plan hospital d#4 66yo M with DM2, HTN, HLD, arthropathy/Charcot foot, neuropathy sent in by [facility] with 2 mo of worsening ulcers of great toe despite course of outpt doxycycline # DM2 foot ulcer with osteomyelitis - continue pip/florencia d#4 [d/c vanco- wound Cx growing MSSA]4, ID consulted, PICC tomrrow, pt will get 6 wk of IV ABX [?ertapenem? then 2 mo of doxy] - will need Surgery f/u; has high likelihood of requiring eventual amputation; ulcers debrided to viable tissue at bedside by surgeon; daily wound care with silver alginate and dry dressing # URI - repeat Covid-19 KATHI # CONSTANTIN - replete Fe orally # B12 deficiency anemia - intrinsic factor antibody pending - pt on monthly parenteral B12 at PCP's office but level is still low; will replete with 1000 mcg IM daily x7d, then 1000 mcg IM weekly x 4 wk, then 1000 mcg IM monthly; check level in 1 mo; VNA can administer # SILVA - resolved with IV fluid hydration + holding lisinopril # HTN - continue metoprolol, resume lisinopril- increase dose 10->20 mg/d, home dose 30 mg/d # hyperK - resolved s/p SZC # HLD - continue atorvastatin # neuropathy - continue gabapentin # DM2, A1c 7 - basal/bolus insulin # VTE ppx - LMWH # dispo - anticipate home with VNA for IV ABX p PICC placement Quality Stroke Does the patient have a stroke diagnosis?: No VTE Prior VTE?: No VTE Risk Level:: Medical - moderate - high VTE Device Contraindication: Treatment Not Indicated VTE Drug Contraindication: N/A - Med Ordered
[2021-10-16 12:00] VITALS: BP 149/67; PULSE 65; RESP 18; TEMP 36.6; O2SAT 96
[2021-10-16 12:06] LABS: Glucose, Whole Blood 143 mg/dL (60-115)
[2021-10-16] MEDS: methADONE HCl 20 MG/2 ML ORAL.CONC 40 MG PO (12:15)
[2021-10-16 12:25] LABS: IDNOW Serial# 55D5AD1C
[2021-10-16 12:26] LABS: COVID-19 Test Positive (Negative)
[2021-10-16 16:00] VITALS: BP 159/62; PULSE 73; RESP 16; TEMP 36.8; O2SAT 95
[2021-10-16] MEDS: Cyanocobalamin (Vitamin B-12) 1,000 MCG/ML VIAL 1000 MCG IM (16:42)
[2021-10-16 17:33] LABS: Glucose, Whole Blood 165 mg/dL (60-115)
[2021-10-16] MEDS: Insulin Lispro 100 UNIT/ML 3 ML VIAL SUBCUT ×2 (17:50→21:14)
[2021-10-16 19:04] VITALS: BP 137/55; PULSE 68; RESP 16; TEMP 36.8; O2SAT 96
[2021-10-16 19:46] LABS: Glucose, Whole Blood 155 mg/dL (60-115)
[2021-10-17] VITALS (7 sets, daily range): BP systolic 120–154; BP diastolic 58–68; PULSE 53–63; RESP 18–20; TEMP 36.4–37; O2SAT 96–97
[2021-10-17] MEDS: Piperacillin Sodium/Tazobactam 3.375 GM in 0.9 % Sodium Chloride 50 ML IV ×4 (05:31→21:41)
[2021-10-17 07:22] LABS: Glucose, Whole Blood 79 mg/dL (60-115)
[2021-10-17 08:43] LABS: Hematocrit 28.7 % (42.0-52.0); Mean Corpuscular HGB Conc 31.4 g/dl (31.0-36.0); Mean Corpuscular Hemoglobin 27.3 pg (27.0-33.0); Mean Platelet Volume 9.4 fL (9.4-12.4); Platelet Count 176 X10*3/uL (160-400); Red Cell Distribution Width 13.2 % (11.0-16.0); White Blood Count 3.4 X10*3/uL (4.8-10.8)
[2021-10-17] MEDS: 0.9 % Sodium Chloride Flush 3 ML SYRINGE IVFLUSH ×3 (09:07→21:36)
[2021-10-17] MEDS: Insulin Lispro 100 UNIT/ML 3 ML VIAL 10 UNIT SUBCUT ×2 (09:08→12:29)
[2021-10-17] MEDS: methADONE HCl 20 MG/2 ML ORAL.CONC 40 MG PO (09:08)
[2021-10-17] MEDS: Insulin Glargine,Hum.rec.anlog 100 UNIT/ML 10 ML VIAL 60 UNIT SUBCUT ×2 (09:08→21:36)
[2021-10-17] MEDS: Ferrous Sulfate 324 MG TABLET.DR PO (09:09)
[2021-10-17] MEDS: lisinopriL 10 MG TABLET 30 MG PO (09:10)
[2021-10-17] MEDS: Atorvastatin Calcium 20 MG TABLET PO (09:11)
[2021-10-17] MEDS: Metoprolol Succinate ER 25 MG TAB.ER.24H 75 MG PO (09:11)
[2021-10-17] MEDS: Gabapentin 300 MG CAPSULE PO ×3 (09:12→21:37)
[2021-10-17 09:21] LABS: Albumin Level 2.8 g/dL (3.5-5.0); Anion Gap 12 (12-20); Bilirubin Total 0.5 mg/dL (0.0-1.0); Blood Urea Nitrogen 14 mg/dL (9-16); C Reactive Protein 5.77 mg/dL (< or = 0.50); Calcium 8.7 mg/dL (8.4-10.2); Carbon Dioxide 30 mmol/L (22-29); Chloride 103 mmol/L (96-108); Creatinine Clr Calc Pharmacy 128.1; Estimated Glomerular Filt Rate > 60; Glucose Random 107 mg/dL (60-115); Potassium 4.1 mmol/L (3.3-5.1); Sodium 141 mmol/L (135-145); Total Protein 6.8 g/dL (6.5-8.0)
[2021-10-17 09:40] LABS: Alanine Aminotransferase 14 U/L (0-40); Alkaline Phosphatase 66 U/L (39-117); Aspartate Amino Transferase 19 U/L (5-37)
--- NOTE | 2021-10-17 10:07 | P.PNIM_ITS ---
Subjective Subjective Date of Service: 10/17/21 Interval History: Pt tested positive for Covid-19 yesterday and was transferred to [facility] emergency department. States he tested negative at [facility] last week; admission test on 10/14 also negative. Symptoms began on 10/15. Has congestion + mild cough; no dyspnea. Foot pain controlled. No fever. Review of Systems Review of Systems: Yes all other systems are reviewed and are negative Physical Exam Verdana 4l Vital Signs: Verdana 4d Verdana 4d Vital Signs: Verdana 4d Verdana 4Bd Last Vital Signs Verdana 4d Superintendent Laundry New 4d Superintendent Laundry New 4d Temp 98.6 F 10/17/21 07:31 Superintendent Laundry New 4d Pulse 58 10/17/21 07:31 Superintendent Laundry New 4d Resp 20 10/17/21 07:31 BP 154/68 H 10/17/21 07:31 Pulse Ox 97 10/17/21 07:31 BMI result Body Mass Index 32.5 Gen: in no acute distress HEENT: sclera anicteric, moist mucus membranes Neck: supple Lungs: clear to auscultation bilaterally Heart: regular rate and rhythm, no murmurs Abd: soft, non-tender, non-distended Ext: no edema Skin: plantar and medial ulcers of right great toe Neuro: alert and oriented x3, no focal findings Psych: appropriate affect Objective Data Active Medications Acetaminophen (Acetaminophen 325 Mg Tablet) 650 mg PO Q6H PRN PRN Reason: Pain, Mild (Pain Scale 1-3) Last Admin: 10/15/21 17:33 Dose: 650 mg Documented by: MY Atorvastatin Calcium (Atorvastatin Calcium 20 Mg Tablet) 20 mg PO DAILY [facility] Last Admin: 10/17/21 09:11 Dose: 20 mg Documented by: AILEEN Cyanocobalamin (Cyanocobalamin (Vitamin B-12) 1,000 Mcg/Ml Vial) 1,000 mcg IM DAILY@1500 [facility] Stop: 10/17/21 15:01 Last Admin: 10/16/21 16:42 Dose: 1,000 mcg Documented by: MY Dextrose (Dextrose 50 % 25 Gm/50 Ml Syringe) 25 gm IVPUSH Q15M PRN; Protocol PRN Reason: per Hypoglycemia Standing Ord. Enoxaparin Sodium (Enoxaparin Sodium 40 Mg/0.4 Ml Syringe) 40 mg SUBCUT Q24H S Last Admin: 10/16/21 23:09 Dose: 40 mg Documented by: CARLOS Ferrous Sulfate (Ferrous Sulfate 324 Mg Tablet.) 324 mg PO DAILY [facility] Last Admin: 10/17/21 09:09 Dose: 324 mg Documented by: AILEEN Gabapentin (Gabapentin 300 Mg Capsule) 300 mg PO TID [facility] Last Admin: 10/17/21 09:12 Dose: 300 mg Documented by: AILEEN Glucose (Glucose Gel 15 Gm Gel..Gram.) 15 gm PO Q15M PRN; Protocol PRN Reason: per Hypoglycemia Standing Ord. Piperacillin Sod/Tazobactam (Sod 3.375 gm/ Sodium Chloride) 50 mls @ 100 mls/hr IV Q6H [facility] Last Infusion: 10/17/21 06:08 Dose: 0 mls/hr Documented by: CARLOS Remdesivir 200 mg/ Sodium (Chloride) 210 mls @ 105 mls/hr IV ONCE ONE Stop: 10/17/21 12:59 Remdesivir 100 mg/ Sodium (Chloride) 230 mls @ 115 mls/hr IV Q24H [facility] Stop: 10/19/21 12:59 Insulin Glargine (Insulin Glargine,Hum.Rec.Anlog 100 Unit/Ml 10 Ml Vial) 60 unit SUBCUT BID [facility] Last Admin: 10/17/21 09:08 Dose: 60 unit Documented by: AILEEN Insulin Human Lispro (Insulin Lispro 100 Unit/Ml 3 Ml Vial) 0 unit SUBCUT QIDACHS [facility]; Protocol Last Admin: 10/17/21 08:39 Dose: Not Given Documented by: AILEEN Non-Admin Reason: No Insulin Coverage Insulin Human Lispro (Insulin Lispro 100 Unit/Ml 3 Ml Vial) 10 unit SUBCUT TIDWM [facility] Last Admin: 10/17/21 09:08 Dose: 10 unit Documented by: AILEEN Lisinopril (Lisinopril 10 Mg Tablet) 30 mg PO DAILY [facility]; Protocol Last Admin: 10/17/21 09:10 Dose: 30 mg Documented by: AILEEN Melatonin (Melatonin 3 Mg Tablet) 6 mg PO BEDTIME PRN PRN Reason: Insomnia Methadone HCl (Methadone Hcl 20 Mg/2 Ml Oral.Conc) 40 mg PO DAILY [facility] Last Admin: 10/17/21 09:08 Dose: 40 mg Documented by: AILEEN Metoprolol Succinate (Metoprolol Succinate Er 25 Mg Tab.Er.24h) 75 mg PO DAILY [facility]; Protocol Last Admin: 10/17/21 09:11 Dose: 75 mg Documented by: AILEEN Pharmacy Consult (Consult Rx Perform Med Rec) 1 each MISCELLANE ONCE PRN PRN Reason: Consult order Pharmacy Consult (Consult Rx Vancomycin Dosing) 1 each MISCELLANE DAILY PRN PRN Reason: Consult order Senna (Sennosides 8.6 Mg Tablet) 17.2 mg PO BEDTIME PRN PRN Reason: Constipation Sodium Chloride (0.9 % Sodium Chloride Flush 3 Ml Syringe) 3 ml IVFLUSH QSHIFT [facility] Last Admin: 10/17/21 09:07 Dose: 3 ml Documented by: AILEEN Labs CBC & Chem 7: 10/17/21 08:03 10/17/21 08:03 Labs: Laboratory Results - last 24 hr 10/16/21 10/16/21 10/16/21 12:00 12:00 17:26 MCV MCH MCHC RDW Plt Count MPV Absolute Nucleated RBC Nucleated RBC % (auto) Anion Gap Estim Creat Clear Calc Estimated GFR POC Glucose 143 H 165 H Random Glucose Calcium Total Bilirubin AST ALT Alkaline Phosphatase C-Reactive Protein Total Protein Albumin COVID-19 (KATHI) Positive A COVID-19 Clin Com See Note 10/16/21 10/17/21 10/17/21 19:42 07:18 08:03 MCV 87.0 MCH 27.3 MCHC 31.4 RDW 13.2 Plt Count 176 MPV 9.4 Absolute Nucleated RBC 0.000 Nucleated RBC % (auto) 0.0 Anion Gap Estim Creat Clear Calc Estimated GFR POC Glucose 155 H 79 Random Glucose Calcium Total Bilirubin AST ALT Alkaline Phosphatase C-Reactive Protein Total Protein Albumin COVID-19 (KATHI) COVID-19 Clin Com 10/17/21 08:03 MCV MCH MCHC RDW Plt Count MPV Absolute Nucleated RBC Nucleated RBC % (auto) Anion Gap 12 Estim Creat Clear Calc 128.1 Estimated GFR > 60 POC Glucose Random Glucose 107 Calcium 8.7 Total Bilirubin 0.5 AST 19 D ALT 14 Alkaline Phosphatase 66 D C-Reactive Protein 5.77 H Total Protein 6.8 Albumin 2.8 L COVID-19 (KATHI) COVID-19 Clin Com Microbiology Microbiology Results: Microbiology 10/13/21 21:03 Gram Stain - Final Toe Right Great Routine Culture - Final Staphylococcus aureus Assessment and Plan (1) Diabetic osteomyelitis: Status: Acute Plan hospital d#5 66yo M with DM2, HTN, HLD, arthropathy/Charcot foot, neuropathy sent in by [facility] with 2 mo of worsening ulcers of great toe despite course of outpt doxycycline, turned positive for Covid-19 infection 10/16/21 # Covid-19 infection - vaccinated with 2 doses of mRNA immunization, last in Apr 2021, not yet b oosted - risk factors for severe disease: age, obesity, DM2 - will give 3d of IV remdesivir; if discharged, will refer for oral nirmatrelvir or IV sotrovimab # DM2 foot ulcer with osteomyelitis - continue pip/florencia d#6 [d/c'ed vanco- wound Cx growing MSSA], ID consulted, PICC today pt will get 6 wk of IV ABX [change to ertapenem upon discharge] - will need Surgery f/u; has high likelihood of requiring eventual amputation; ulcers debrided to viable tissue at bedside by surgeon; daily wound care with silver alginate and dry dressing # CONSTANTIN - replete Fe orally # B12 deficiency anemia - intrinsic factor antibody pending - pt on monthly parenteral B12 at PCP's office but level is still low; will replete with 1000 mcg IM daily x7d, then 1000 mcg IM weekly x 4 wk, then 1000 mcg IM monthly; check level in 1 mo; VNA can administer # SILVA - resolved with IV fluid hydration + holding lisinopril # HTN - continue metoprolol, resume home dose of lisinopril # hyperK - resolved s/p SZC # HLD - continue atorvastatin # neuropathy - continue gabapentin # DM2, A1c 7 - basal/bolus insulin # VTE ppx - LMWH # dispo - anticipate home with VNA for IV ABX p PICC placement Quality Stroke Does the patient have a stroke diagnosis?: No VTE Prior VTE?: No VTE Risk Level:: Medical - moderate - high VTE Device Contraindication: Treatment Not Indicated VTE Drug Contraindication: N/A - Med Ordered
[2021-10-17 11:13] LABS: Glucose, Whole Blood 111 mg/dL (60-115)
[2021-10-17] MEDS: Remdesivir 200 MG in 0.9 % Sodium Chloride 210 ML 105 MG IV (12:17)
--- NOTE | 2021-10-17 14:20 | MHC.CM.PN ---
per rounds picc will not be in till tomorrow tim going for auth
[2021-10-17] MEDS: Cyanocobalamin (Vitamin B-12) 1,000 MCG/ML VIAL 1000 MCG IM (16:50)
[2021-10-17 16:59] LABS: Glucose, Whole Blood 69 mg/dL (60-115)
[2021-10-17 21:02] LABS: Glucose, Whole Blood 123 mg/dL (60-115)
[2021-10-17] MEDS: Enoxaparin Sodium 40 MG/0.4 ML SYRINGE SUBCUT (21:37)
[2021-10-18] VITALS (8 sets, daily range): BP systolic 93–181; BP diastolic 46–94; PULSE 61–80; RESP 16–22; TEMP 35.8–36.8; O2SAT 95–98
[2021-10-18 01:12] LABS: Glucose, Whole Blood 167 mg/dL (60-115)
[2021-10-18] MEDS: Piperacillin Sodium/Tazobactam 3.375 GM in 0.9 % Sodium Chloride 50 ML IV ×4 (05:36→22:46)
[2021-10-18 07:17] LABS: Glucose, Whole Blood 144 mg/dL (60-115)
[2021-10-18] MEDS: Ferrous Sulfate 324 MG TABLET.DR PO (07:53)
[2021-10-18] MEDS: Atorvastatin Calcium 20 MG TABLET PO (07:53)
[2021-10-18] MEDS: lisinopriL 10 MG TABLET 30 MG PO (07:53)
[2021-10-18] MEDS: Metoprolol Succinate ER 25 MG TAB.ER.24H 75 MG PO (07:54)
[2021-10-18] MEDS: Gabapentin 300 MG CAPSULE PO ×3 (07:54→22:47)
[2021-10-18] MEDS: methADONE HCl 20 MG/2 ML ORAL.CONC 40 MG PO (07:55)
[2021-10-18] MEDS: Insulin Lispro 100 UNIT/ML 3 ML VIAL 10 UNIT SUBCUT ×2 (07:56→14:47)
[2021-10-18] MEDS: Insulin Glargine,Hum.rec.anlog 100 UNIT/ML 10 ML VIAL 60 UNIT SUBCUT ×2 (07:56→22:46)
--- NOTE | 2021-10-18 10:16 | HO.PM.IMPN ---
Subjective Subjective Date of Service: 10/18/21 Interval History: C/o congestion + dyspnea R foot pain No fever Not hypoxic Review of Systems Review of Systems: Yes all other systems are reviewed and are negative Physical Exam Vital Signs: Vital Signs: Last Vital Signs Temp 98.2 F 10/18/21 07:19 Pulse 67 10/18/21 07:19 Resp 18 10/18/21 07:19 BP 144/59 H 10/18/21 07:19 Pulse Ox 96 10/18/21 07:19 BMI result Body Mass Index 32.5 Gen: in no acute distress HEENT: sclera anicteric, moist mucus membranes Neck: supple Lungs: clear to auscultation bilaterally Heart: regular rate and rhythm, no murmurs Abd: soft, non-tender, non-distended Ext: no edema Skin: plantar and medial ulcers of right great toe Neuro: alert and oriented x3, no focal findings Psych: appropriate affect Objective Data Active Medications Acetaminophen (Acetaminophen 325 Mg Tablet) 650 mg PO Q6H PRN PRN Reason: Pain, Mild (Pain Scale 1-3) Last Admin: 10/15/21 17:33 Dose: 650 mg Documented by: MY Atorvastatin Calcium (Atorvastatin Calcium 20 Mg Tablet) 20 mg PO DAILY [facility] Last Admin: 10/18/21 07:53 Dose: 20 mg Documented by: AILEEN Cyanocobalamin (Cyanocobalamin (Vitamin B-12) 1,000 Mcg/Ml Vial) 1,000 mcg IM DAILY@1500 [facility] Stop: 10/20/21 15:01 Last Admin: 10/17/21 16:50 Dose: 1,000 mcg Documented by: AILEEN Dextrose (Dextrose 50 % 25 Gm/50 Ml Syringe) 25 gm IVPUSH Q15M PRN; Protocol PRN Reason: per Hypoglycemia Standing Ord. Enoxaparin Sodium (Enoxaparin Sodium 40 Mg/0.4 Ml Syringe) 40 mg SUBCUT Q24H [facility] Last Admin: 10/17/21 21:37 Dose: 40 mg Documented by: CARLOS Ferrous Sulfate (Ferrous Sulfate 324 Mg Tablet.) 324 mg PO DAILY [facility] Last Admin: 10/18/21 07:53 Dose: 324 mg Documented by: AILEEN Gabapentin (Gabapentin 300 Mg Capsule) 300 mg PO TID [facility] Last Admin: 10/18/21 07:54 Dose: 300 mg Documented by: AILEEN Glucose (Glucose Gel 15 Gm Gel..Gram.) 15 gm PO Q15M PRN; Protocol PRN Reason: per Hypoglycemia Standing Ord. Piperacillin Sod/Tazobactam (Sod 3.375 gm/ Sodium Chloride) 50 mls @ 100 mls/hr IV Q6H [facility] Last Infusion: 10/18/21 06:18 Dose: 0 mls/hr Documented by: CARLOS Remdesivir 100 mg/ Sodium (Chloride) 230 mls @ 115 mls/hr IV Q24H [facility] Stop: 10/19/21 12:59 Insulin Glargine (Insulin Glargine,Hum.Rec.Anlog 100 Unit/Ml 10 Ml Vial) 60 unit SUBCUT BID [facility] Last Admin: 10/18/21 07:56 Dose: 60 unit Documented by: AILEEN Insulin Human Lispro (Insulin Lispro 100 Unit/Ml 3 Ml Vial) 0 unit SUBCUT QIDACHS [facility]; Protocol Last Admin: 10/18/21 08:00 Dose: Not Given Documented by: AILEEN Non-Admin Reason: No Insulin Coverage Insulin Human Lispro (Insulin Lispro 100 Unit/Ml 3 Ml Vial) 10 unit SUBCUT TIDWM [facility] Last Admin: 10/18/21 07:56 Dose: 10 unit Documented by: AILEEN Lisinopril (Lisinopril 10 Mg Tablet) 30 mg PO DAILY [facility]; Protocol Last Admin: 10/18/21 07:53 Dose: 30 mg Documented by: AILEEN Melatonin (Melatonin 3 Mg Tablet) 6 mg PO BEDTIME PRN PRN Reason: Insomnia Methadone HCl (Methadone Hcl 20 Mg/2 Ml Oral.Conc) 40 mg PO DAILY [facility] Last Admin: 10/18/21 07:55 Dose: 40 mg Documented by: AILEEN Metoprolol Succinate (Metoprolol Succinate Er 25 Mg Tab.Er.24h) 75 mg PO DAILY [facility]; Protocol Last Admin: 10/18/21 07:54 Dose: 75 mg Documented by: AILEEN Pharmacy Consult (Consult Rx Perform Med Rec) 1 each MISCELLANE ONCE PRN PRN Reason: Consult order Pharmacy Consult (Consult Rx Vancomycin Dosing) 1 each MISCELLANE DAILY PRN PRN Reason: Consult order Senna (Sennosides 8.6 Mg Tablet) 17.2 mg PO BEDTIME PRN PRN Reason: Constipation Sodium Chloride (0.9 % Sodium Chloride Flush 3 Ml Syringe) 3 ml IVFLUSH QSHIFT [facility] Last Admin: 10/17/21 21:36 Dose: 3 ml Documented by: CARLOS Labs CBC & Chem 7: 10/17/21 08:03 10/17/21 08:03 Labs: Laboratory Results - last 24 hr 10/17/21 10/17/21 10/17/21 11:09 16:56 20:58 POC Glucose 111 69 123 H 10/18/21 10/18/21 01:06 07:12 POC Glucose 167 H 144 H Assessment and Plan (1) Diabetic osteomyelitis: Status: Acute Plan hospital d#6 66yo M with DM2, HTN, HLD, arthropathy/Charcot foot, neuropathy sent in by [facility] with 2 mo of worsening ulcers of great toe despite course of outpt doxycycline, turned positive for Covid-19 infection 10/16/21 # Covid-19 infection - vaccinated with 2 doses of mRNA immunization, last in Apr 2021, not yet boosted - risk factors for severe disease: age, obesity, DM2 - on d#2/3 of IV remdesivir; trend inflammatory markers # DM2 foot ulcer with osteomyelitis - continue pip/florencia d#7 [d/c'ed vanco- wound Cx growing MSSA], ID consulted, PICC today pt will get total 6 wk of IV ABX [change to ertapenem upon discharge] - will need Surgery f/u; has high likelihood of requiring eventual amputation; ulcers debrided to viable tissue at bedside by surgeon; daily wound care with silver alginate and dry dressing # CONSTANTIN - replete Fe orally # B12 deficiency anemia - intrinsic factor antibody pending - pt on monthly parenteral B12 at PCP's office but level is still low; repleting with 1000 mcg IM daily x7d, then 1000 mcg IM weekly x 4 wk, then 1000 mcg IM monthly; check level in 1 mo; VNA can administer # SILVA - resolved with IV fluid hydration + holding lisinopril # HTN - continue metoprolol, resumed home dose of lisinopril # hyperK - resolved s/p SZC # HLD - continue atorvastatin # neuropathy - continue gabapentin # DM2, A1c 7 - basal/bolus insulin # VTE ppx - LMWH # dispo - due to Covid-19, 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
--- NOTE | 2021-10-18 10:19 | P.CDIC_ITS ---
CDI Concurrent Query Documentation Clarification: PHYSICIAN'S DOCUMENTATION REQUEST Date of Query: 10/18/21 1020 Patient Name: Paul Vo Admit Date: 10/13/21 Dear Doctor, A review of the medical record indicates additional documentation may be needed. Please review below and update the documentation accordingly. Clinical Indicators: Risk Factors/Clinical Indicators/Treatments Per progress note 10/14/21: Ulcer of right great toe, debrided to bleeding viable tissue.? Ulcer extends to bone.? Wounds packed with Silver Alginate. Patient has 2 ulcers RGT Could you provide, in the Progress Notes, further clarification regarding the debridement? Please specify the type of debridement performed: * Excisional debridement - defined as removal by excision of: devitalized tissue, necrosis, or slough * Non-excisional debridement - defined as removal of devitalized tissue, necrosis, or slough by such methods as: irrigation, brushing, scrubbing, or washing. If the debridement was excisional please also include: * Type of instrument used (#11 blade, #15 blade, etc.) * What was excised (necrotic tissue, gangrenous tissue, slough, etc.) For excisional or non-excisional, please also include: * Depth of debridement (skin, subcutaneous tissue, muscle, fascia, bone, etc.) * Size and appearance of the wound (L,W,D, color of wound, drainage) Use of terms such as suspected, likely, concern for, or probable (associated with a specific diagnosis that is being evaluated, monitored, or treated as if it exists) are acceptable and can be coded in the inpatient setting, when documented at the time of discharge. Thank you, Mel Gomez RN Extension: [phone] Please use your independent medical judgment in providing your response. THIS QUERY IS PART OF THE PERMANENT MEDICAL RECORD Provider Response: Other Other Diagnosis: Added to note: Patient underwent an excisional debridement of the great toe ulcer right side using a scissors to remove necrotic skin and subcutaneous tissue. No bone was debrided with this debridement. Ulcer measures 2 x 2 cm and 1 cm deep. No drainage was identified the base of the wound revealed some bleeding tissue and bone.
[2021-10-18 11:13] LABS: Glucose, Whole Blood 139 mg/dL (60-115)
--- NOTE | 2021-10-18 14:34 | HO.PICC ---
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 Following completion of [place] Protocol the skin and soft tissues were anesthetized with 1% Lidocaine plain. Using ultrasound guidance, [right basilic] vein access was obtained twice by Angie Contreras RN, but unable to pass guidewire. Right brachial vein access was obtained by Demetrius Boland RN on first attempt. Over an 0.018 wire through peel-away sheath, a [4FR single lumen] PICC line was positioned. Catheter length is [44 CM] internal length, [0 CM (at the hub)] external length, for a total trimmed length of [44 CM]. The procedure was performed in [Room 486-1]. Tip verification was performed by Kody Gilliam with Sherlock 3CG. Tip located in SVC. Ultrasound was used to document vein patency and for needle entry. A formal ultrasound picture and cardiac rhythm strip was recorded. Vascular Certified Registered Nurse Practitioner has released the line for use and it is currently dressed with a StatLock, Tegaderm, and CHG disc. Verification has been performed for blood return and line patency. Arm Circumference: [33 CM] Equipment: [Course Hero Power PICC Solo] Catheter Type: [4FR Single Lumen PICC] Lot #: [[id number]]
[2021-10-18] MEDS: Cyanocobalamin (Vitamin B-12) 1,000 MCG/ML VIAL 1000 MCG IM (14:47)
[2021-10-18] MEDS: 0.9 % Sodium Chloride Flush 3 ML SYRINGE IVFLUSH ×3 (14:47→22:47)
[2021-10-18] MEDS: 0.9 % Sodium Chloride Flush 10 ML SYRINGE 5 ML IVFLUSH (14:48)
[2021-10-18] MEDS: Remdesivir 100 MG in 0.9 % Sodium Chloride 230 ML 115 MG IV (14:49)
[2021-10-18 16:02] LABS: Glucose, Whole Blood 142 mg/dL (60-115)
--- NOTE | 2021-10-18 16:17 | MHC.CM.PN ---
Discharge was held by MD today. The patient was SOB. The MD is keeping him for observation overnight. Sofie Espino was notified, and are holding the bed.
[2021-10-18 20:10] LABS: Glucose, Whole Blood 181 mg/dL (60-115)
[2021-10-18] MEDS: Insulin Lispro 100 UNIT/ML 3 ML VIAL SUBCUT (22:46)
[2021-10-18] MEDS: Enoxaparin Sodium 40 MG/0.4 ML SYRINGE SUBCUT (22:47)
[2021-10-19 04:00] VITALS: BP 144/66; PULSE 65; RESP 18; TEMP 36.2
[2021-10-19] MEDS: Piperacillin Sodium/Tazobactam 3.375 GM in 0.9 % Sodium Chloride 50 ML IV (04:54)
[2021-10-19 06:52] LABS: Hematocrit 26.1 % (42.0-52.0); Hemoglobin 8.2 g/dl (14.0-18.0); Mean Corpuscular HGB Conc 31.4 g/dl (31.0-36.0); Mean Corpuscular Hemoglobin 27.7 pg (27.0-33.0); Mean Corpuscular Volume 88.2 fL (80.0-98.0); Mean Platelet Volume 8.9 fL (9.4-12.4); Platelet Count 145 X10*3/uL (160-400); Red Blood Count 2.96 X10*6/uL (4.60-5.80); White Blood Count 3.9 X10*3/uL (4.8-10.8)
[2021-10-19 07:09] LABS: Alanine Aminotransferase 18 U/L (0-40); Albumin Level 2.7 g/dL (3.5-5.0); Alkaline Phosphatase 72 U/L (39-117); Anion Gap 11 (12-20); Aspartate Amino Transferase 17 U/L (5-37); Bilirubin Total 0.5 mg/dL (0.0-1.0); Blood Urea Nitrogen 20 mg/dL (9-16); C Reactive Protein 3.38 mg/dL (< or = 0.50); Calcium 8.4 mg/dL (8.4-10.2); Carbon Dioxide 30 mmol/L (22-29); Chloride 105 mmol/L (96-108); Creatinine Clr Calc Pharmacy 119.5; Estimated Glomerular Filt Rate > 60; Glucose Random 151 mg/dL (60-115); Potassium 4.4 mmol/L (3.3-5.1); Sodium 142 mmol/L (135-145); Total Protein 6.4 g/dL (6.5-8.0)
[2021-10-19 07:39] LABS: Erythrocyte Sedimentation Rate 97 MM/HR (0-15)
[2021-10-19 07:40] LABS: Glucose, Whole Blood 163 mg/dL (60-115)
[2021-10-19 07:50] VITALS: BP 147/66; PULSE 46; RESP 18; TEMP 35.9; O2SAT 97
[2021-10-19] MEDS: Insulin Lispro 100 UNIT/ML 3 ML VIAL SUBCUT ×2 (08:28→11:52)
[2021-10-19] MEDS: Insulin Lispro 100 UNIT/ML 3 ML VIAL 10 UNIT SUBCUT ×3 (08:28→16:52)
[2021-10-19] MEDS: methADONE HCl 20 MG/2 ML ORAL.CONC 40 MG PO (09:54)
[2021-10-19] MEDS: Insulin Glargine,Hum.rec.anlog 100 UNIT/ML 10 ML VIAL 60 UNIT SUBCUT ×2 (09:54→21:21)
[2021-10-19] MEDS: Gabapentin 300 MG CAPSULE PO ×3 (09:55→21:20)
[2021-10-19] MEDS: Ferrous Sulfate 324 MG TABLET.DR PO (09:56)
[2021-10-19] MEDS: Atorvastatin Calcium 20 MG TABLET PO (09:56)
[2021-10-19] MEDS: lisinopriL 10 MG TABLET 30 MG PO (09:56)
[2021-10-19] MEDS: 0.9 % Sodium Chloride Flush 10 ML SYRINGE 5 ML IVFLUSH ×3 (09:57→21:22)
[2021-10-19] MEDS: Remdesivir 100 MG in 0.9 % Sodium Chloride 230 ML 115 MG IV (10:23)
[2021-10-19 10:59] VITALS: BP 175/74; PULSE 61; RESP 18; TEMP 36.3; O2SAT 97
[2021-10-19 11:24] LABS: Glucose, Whole Blood 177 mg/dL (60-115)
[2021-10-19] MEDS: Ertapenem Sodium 1 GM in 0.9 % Sodium Chloride 50 ML IV (12:24)
--- NOTE | 2021-10-19 12:24 | PM.DS ---
DS: Providers Provider Date of Service: 10/19/21 Date of admission: 10/13/21 22:40 Primary care physician: Francine Khan MD Consults: 10/13/21 22:37 Consult to General Surgery Routine Consulting Provider: Nathan Wakefield Reason for consultation: DM foot ulcer/osteomyelitis Consult to Infectious Diseases Routine Consulting Provider: Leanne Hughes Reason for consultation: DM foot ulcer/osteomyelitis DS: Diagnosis Discharge Diagnosis (1) Diabetic osteomyelitis: Status: Acute (2) Diabetic ulcer of right great toe: Status: Acute (3) B12 deficiency anemia: Status: Acute (4) Iron deficiency anemia: Status: Acute (5) Acute kidney failure: Status: Acute (6) Hyperkalemia: Status: Acute (7) COVID-19 virus infection: Status: Acute DS: Summary Hospital Course Hospital Course: From Harlan Mahajan's admission H+P, 10/13/21: 66-year-old male with a past medical history of hypertension, hyperlipidemia, diabetes, neuropathy, diabetic foot ulcer, charCote foot presented the hospital with a chief complaint of right great toe ulcer. Patient reports that he has been having diabetic foot ulcers on the his right great toe tip and bottom for about 2 months and has been following with the wound clinic and over the past couple days he had ulcer on the medial side? of the great toe; went to the wound clinic today who suggested him to go to the ER for possible debridement. Patient reports that he recently finished course of doxycycline about a week ago 40 ft infection.? Denies any fevers.? Denies any chest pain or palpitations.? Denies any numbness tingling or focal weakness.? Review of all other systems is negative except mentioned above ER course: Per ER team patient noted to have ulcers on his great toe, moderate erythema on the distal 3rd of the dorsum of the foot, tenderness, warmth; given IV vancomycin and Zosyn.? X-ray showed osteomyelitis.? Notified General surgery. This 66yo M with DM2, HTN, HLD, arthropathy/Charcot foot, and neuropathy was sent in by the [facility] with 2 mo of worsening ulcers of great toe despite course of outpatient doxycycline. General SUrgery was consulted and the patient underwent bedside debridement to viable tissue at bedside. He was treated with piperacillin/tazobactam and vancomycin. Blood cultures were negative. Wound culture grew MSSA plus other skin jose alberto. ID was consulted. PICC line was placed. He was transitioned to ertapenem and will continue 36 more days upon discharge, with weekly labs [CBCd, CMP, ESR, CRP] and follow-up with General Surgery and Infectious Disease. He was found to have anemia due to iron and B12 deficiency; iron was repleted orally and B12 parenterally. SILVA resolved with IV fluid hydration and hyperkalemia resolved with SZC. Lisinopril was resumed without renal decompensation or recurrent hyperkalemia. He was diagnosed with breakthrough Covid-19 infection on 10/16/21, when he developed URI symptoms. Given risk factors for severe disease of age, obesity, and diabetes, he was treated with 3 days of IV remdesivir. He never developed hypoxia. He was discharged to SNF for short-term nursing care until he completes Covid-19 isolation for 10 days from diagnosis; afterwards, he could be managed at home with VNA servcies for antibiotic administration. Time Spent with Patient Time attestation: Total time spent providing and/or coordinating discharge services: Discharge coordination time: Greater than 30 minutes Quality: Stroke Does the patient have a stroke diagnosis?: No Physical Exam Vital Signs: Vital Signs: Last Vital Signs Temp 97.3 F 10/19/21 10:59 Pulse 61 10/19/21 10:59 Resp 18 10/19/21 10:59 BP 175/74 H 10/19/21 10:59 Pulse Ox 97 10/19/21 10:59 BMI result Body Mass Index 32.5 Gen: in no acute distress HEENT: sclera anicteric, moist mucus membranes Neck: supple Lungs: clear to auscultation bilaterally Heart: regular rate and rhythm, no murmurs Abd: soft, non-tender, non-distended Ext: no edema Skin: plantar and medial ulcers of right great toe Neuro: alert and oriented x3, no focal findings Psych: appropriate affect DS: Data Data Completed and Pending Completed studies during hospitalization [Text1]: Laboratory Results WBC 3.9 X10*3/uL (4.8-10.8) L 10/19/21 06:27 RBC 2.96 X10*6/uL (4.60-5.80) L 10/19/21 06:27 Hgb 8.2 g/dl (14.0-18.0) L 10/19/21 06:27 Hct 26.1 % (42.0-52.0) L 10/19/21 06:27 MCV 88.2 fL (80.0-98.0) 10/19/21 06:27 MCH 27.7 pg (27.0-33.0) 10/19/21 06:27 MCHC 31.4 g/dl (31.0-36.0) 10/19/21 06:27 RDW 13.0 % (11.0-16.0) 10/19/21 06:27 Plt Count 145 X10*3/uL (160-400) L 10/19/21 06:27 MPV 8.9 fL (9.4-12.4) L 10/19/21 06:27 Immature Gran % (Auto) 0.5 % (0.0-0.4) H 10/14/21 05:26 Neut % (Auto) 55.3 % (45-73) 10/14/21 05:26 Lymph % (Auto) 31.1 % (20-40) 10/14/21 05:26 [place] % (Auto) 10.6 % (2-11) 10/14/21 05:26 Eos % (Auto) 2.4 % (0-4) 10/14/21 05:26 Baso % (Auto) 0.1 % (0-2) 10/14/21 05:26 Lymph # (Auto) 2.3 X10*3/uL (1.2-4.9) 10/14/21 05:26 [place] # (Auto) 0.8 X10*3/uL (0.1-1.2) 10/14/21 05:26 Eos # (Auto) 0.2 X10*3/uL (0.0-0.4) 10/14/21 05:26 Baso # (Auto) 0.0 X10*3/uL (0.0-0.2) 10/14/21 05:26 Abs Immat Gran (auto) 0.04 X10*3/uL (0.00-0.03) H 10/14/21 05:26 Absolute Neuts (auto) 4.2 x10*3/uL (2.0-8.3) 10/14/21 05:26 Absolute Nucleated RBC 0.000 X10*3/uL (0.0-0.012) 10/19/21 06:27 Nucleated RBC % (auto) 0.0 /100WBC (0.0-0.2) 10/19/21 06:27 ESR 97 MM/HR (0-15) H 10/19/21 06:27 Absolute Retic 0.054 X10*6/uL (0.026-0.095) 10/14/21 05:26 Percent Retic 1.7 % (0.5-1.8) 10/14/21 05:26 Immature Retic Fraction 16.2 % (2.3-13.4) H 10/14/21 05:26 Retic Hgb Equivalent 27.7 pg (30.0-35.0) L 10/14/21 05:26 Sodium 142 mmol/L (135-145) 10/19/21 06:40 Potassium 4.4 mmol/L (3.3-5.1) 10/19/21 06:40 Chloride 105 mmol/L (96-108) 10/19/21 06:40 Carbon Dioxide 30 mmol/L (22-29) H 10/19/21 06:40 Anion Gap 11 (12-20) L 10/19/21 06:40 BUN 20 mg/dL (9-16) H 10/19/21 06:40 Creatinine 0.90 mg/dL (0.5-1.4) 10/19/21 06:40 Estim Creat Clear Calc 119.5 10/19/21 06:40 Estimated GFR > 60 10/19/21 06:40 POC Glucose 177 mg/dL (60-115) H 10/19/21 11:19 Random Glucose 151 mg/dL (60-115) H D 10/19/21 06:40 Estimat Average Glucose 154 mg/dL 10/14/21 05:26 Hemoglobin A1c % 7.0 % 10/14/21 05:26 Lactic Acid 1.4 mmol/L (0.5-2.0) 10/13/21 20:49 Calcium 8.4 mg/dL (8.4-10.2) 10/19/21 06:40 Magnesium 2.2 mg/dL (1.6-2.6) 10/13/21 20:49 Iron 26 mcg/dL (45-160) L 10/14/21 05:26 TIBC 209 mcg/dL (228-428) L 10/14/21 05:26 % Saturation 12 % (15-50) L 10/14/21 05:26 Unsat Iron Binding 183 ug/dL 10/14/21 05:26 Ferritin 240 ng/mL (20-250) 10/14/21 05:26 Total Bilirubin 0.5 mg/dL (0.0-1.0) 10/19/21 06:40 AST 17 U/L (5-37) 10/19/21 06:40 ALT 18 U/L (0-40) 10/19/21 06:40 Alkaline Phosphatase 72 U/L (39-117) 10/19/21 06:40 C-Reactive Protein 3.38 mg/dL (< or = 0.50) H 10/19/21 06:40 B-Natriuretic Peptide 112 pg/mL (<100) H 10/13/21 20:49 Total Protein 6.4 g/dL (6.5-8.0) L 10/19/21 06:40 Albumin 2.7 g/dL (3.5-5.0) L 10/19/21 06:40 Vitamin B12 147 pg/mL (200-900) L 10/14/21 05:26 Folate 11.0 ng/mL (> or = 4.0) 10/14/21 05:26 Vancomycin Trough 6.2 mcg/mL (10.0-20.0) L 10/15/21 18:59 COVID-19 (KATHI) Positive (Negative) A 10/16/21 12:00 COVID-19 Clin Com See Note 10/16/21 12:00 Impressions Foot X-Ray 10/13/21 21:18 IMPRESSION: Markedly increased osseous destruction and erosions in the first toe concerning for progression of osteomyelitis. Ankylosis and irregular margins of multiple intertarsal and tarsometatarsal joints appear similar to prior. Superimposed infection of these joints is difficult to exclude radiographically. Venous Duplex 10/13/21 22:01 IMPRESSION: No evidence of deep venous thrombosis involving the right lower extremity. Discharge Plan Discharge Patient Disposition: [facility] Discharge Diagnosis: Diabetic osteomyelitis/ulcer, Covid-19 infection, anemia due to B12 and iron deficiency Referrals: Leanne Hughes MD [Physician] - 1 Week Nathan Wakefield MD [Physician] - 1 Week Francine Khan MD [Primary Care Provider] - 1 Week Discharge Medications: New ferrous sulfate 324 mg (65 mg iron) Tablet,Delayed Release (Dr/Ec) 324 mg PO DAILY Qty: 30 0RF cyanocobalamin (vitamin B-12) 1,000 mcg/mL Solution See Rx Instructions .ROUTE .COMPLEX Qty: 10 0RF Rx Instructions: 1,000 mcg intramuscularly weekly x 4 weeks, then 1000 mcg monthly ertapenem 1 gram recon soln 1 g IV DAILY Qty: 36 0RF Rx Instructions: daily until 11/25/21 Continued atorvastatin 20 mg tablet 1 tab PO DAILY 0RF metoprolol succinate 50 mg tablet extended release 24 hr 75 mg PO DAILY 0RF lisinopril 30 mg tablet 1 tab PO DAILY 0RF gabapentin 300 mg capsule 1 cap PO TID 0RF insulin aspart U-100 [Novolog Flexpen U-100 Insulin] 100 unit/mL (3 mL) insulin pen 12 unit subcut TIDWM 0RF Levemir U-100 Insulin 100 unit/mL solution 60 unit subcut BID 0RF methadone 10 mg/mL Concentrate 38 mg PO DAILY 0RF Discharge Orders: Discharge Order (Routine); Ordered 10/19/21 Ordered By: Ulices Rao Diet: diabetic diet Activity on Discharge: As tolerated Stand Alone Forms: Patient Portal Discharge page Other Ambulatory Orders: Vitamin B12 (Routine) Timeframe: 4 Weeks Facility: [facility] - Location: Laboratory Ordered By: Ulices Rao Complete Blood Count Auto Diff (Routine) Timeframe: 1 Week Facility: [facility] - Location: Laboratory Ordered By: Ulices Rao Comprehensive Met. Panel (Routine) Timeframe: 1 Week Facility: [facility] - Location: Laboratory Ordered By: Ulices Roa C Reactive Protein (Routine) Timeframe: 1 Week Facility: [facility] - Location: Laboratory Ordered By: Ulices Rao Erythrocyte Sedimentation Rate (Routine) Timeframe: 1 Week Facility: [facility] - Location: Laboratory Ordered By: Ulices Rao Activity Restrictions/Additional Instructions: Wound care instructions: Cleanse wound with normal saline or wound cleanser then apply silver alginate to wound beds. For tip of great toe, tuck silver alginate into wound and leave tail out. Cover with non woven gauze and roll gauze daily. Care Plan Goals: cure of diabetic foot ulcer/bone infection recovery from Covid-19 B12 and iron repletion Health Concerns: Diabetic osteomyelitis/ulcer, Covid-19 infection Plan of Treatment: Ertapenem 1g IV daily via PICC until 11/25/21 Weekly labs while on ertapenem: CBCd, CMP, CRP, ESR Follow up in 1-2 weeks with Infectious Disease: Leanne Hughes MD [facility] [address], [address], Medicine [facility] [address] Follow up in 1-2 weeks with General Surgery: Nathan Wakefield MD [facility] [address], Surgery [facility] [address] Check oxygen saturation 3x a day and return to hospital if <90%. Maintain isolation precautions until 10/26/21 (10 days from onset of symptoms) Take ferrous sulfate 325 mg daily Cyanocobalamin [vitamin B12] 1000 mcg IM weekly x 4 weeks, then 1000 mcg IM monthly; recheck level in 4 weeks See your primary care doctor within 1-2 weeks after discharge from [facility] Assessment: see Discharge Summary Patient Instructions: Osteomyelitis (DC), PICC (Peripherally Inserted Central Catheter) (DC), COVID-19 (Coronavirus Disease 2019) (DC)
[2021-10-19] MEDS: Cyanocobalamin (Vitamin B-12) 1,000 MCG/ML VIAL 1000 MCG IM (14:38)
--- NOTE | 2021-10-19 14:49 | P.PNIM_ITS ---
Subjective Subjective Date of Service: 10/19/21 Interval History: Pt prepared for discharge to SNF, completed 1 dose ertapenem and last of 3 doses of remdesivir C/o nasal congestion but no dyspnea and not hypoxic C/o drainage from R foot wound Pt is appealing discharge Review of Systems Review of Systems: Yes all other systems are reviewed and are negative Physical Exam Vital Signs: Vital Signs: Last Vital Signs Temp 97.3 F 10/19/21 10:59 Pulse 61 10/19/21 10:59 Resp 18 10/19/21 10:59 BP 175/74 H 10/19/21 10:59 Pulse Ox 97 10/19/21 10:59 BMI result Body Mass Index 32.5 Gen: in no acute distress HEENT: sclera anicteric, moist mucus membranes Neck: supple Lungs: clear to auscultation bilaterally Heart: regular rate and rhythm, no murmurs Abd: soft, non-tender, non-distended Ext: no edema, RUE PICC Skin: plantar and medial ulcers of right great toe Neuro: alert and oriented x3, no focal findings Psych: appropriate affect Objective Data Active Medications Acetaminophen (Acetaminophen 325 Mg Tablet) 650 mg PO Q6H PRN PRN Reason: Pain, Mild (Pain Scale 1-3) Last Admin: 10/15/21 17:33 Dose: 650 mg Documented by: MY Atorvastatin Calcium (Atorvastatin Calcium 20 Mg Tablet) 20 mg PO DAILY [facility] Last Admin: 10/19/21 09:56 Dose: 20 mg Documented by: JOSHUA Cyanocobalamin (Cyanocobalamin (Vitamin B-12) 1,000 Mcg/Ml Vial) 1,000 mcg IM DAILY@1500 [facility] Stop: 10/20/21 15:01 Last Admin: 10/19/21 14:38 Dose: 1,000 mcg Documented by: JOSHUA Dextrose (Dextrose 50 % 25 Gm/50 Ml Syringe) 25 gm IVPUSH Q15M PRN; Protocol PRN Reason: per Hypoglycemia Standing Ord. Enoxaparin Sodium (Enoxaparin Sodium 40 Mg/0.4 Ml Syringe) 40 mg SUBCUT Q24H [facility] Last Admin: 10/18/21 22:47 Dose: 40 mg Documented by: BRIAN Ferrous Sulfate (Ferrous Sulfate 324 Mg Ana María.) 324 mg PO DAILY [facility] Last Admin: 10/19/21 09:56 Dose: 324 mg Documented by: JOSHUA Gabapentin (Gabapentin 300 Mg Capsule) 300 mg PO TID [facility] Last Admin: 10/19/21 14:37 Dose: 300 mg Documented by: JOSHUA Glucose (Glucose Gel 15 Gm Gel..Gram.) 15 gm PO Q15M PRN; Protocol PRN Reason: per Hypoglycemia Standing Ord. Insulin Glargine (Insulin Glargine,Hum.Rec.Anlog 100 Unit/Ml 10 Ml Vial) 60 unit SUBCUT BID [facility] Last Admin: 10/19/21 09:54 Dose: 60 unit Documented by: JOSHUA Insulin Human Lispro (Insulin Lispro 100 Unit/Ml 3 Ml Vial) 0 unit SUBCUT QIDACHS [facility]; Protocol Last Admin: 10/19/21 11:52 Dose: 2 unit Documented by: JOSHUA Insulin Human Lispro (Insulin Lispro 100 Unit/Ml 3 Ml Vial) 10 unit SUBCUT TIDWM [facility] Last Admin: 10/19/21 11:52 Dose: 10 unit Documented by: JOSHUA Lisinopril (Lisinopril 10 Mg Tablet) 30 mg PO DAILY [facility]; Protocol Last Admin: 10/19/21 09:56 Dose: 30 mg Documented by: JOSHUA Melatonin (Melatonin 3 Mg Tablet) 6 mg PO BEDTIME PRN PRN Reason: Insomnia Methadone HCl (Methadone Hcl 20 Mg/2 Ml Oral.Conc) 40 mg PO DAILY [facility] Last Admin: 10/19/21 09:54 Dose: 40 mg Documented by: JOSHUA Metoprolol Succinate (Metoprolol Succinate Er 25 Mg Tab.Er.24h) 75 mg PO DAILY [facility]; Protocol Last Admin: 10/19/21 10:29 Dose: Not Given Documented by: JOSHUA Non-Admin Reason: Decreased Heart Rate Pharmacy Consult (Consult Rx Perform Med Rec) 1 each MISCELLANE ONCE PRN PRN Reason: Consult order Pharmacy Consult (Consult Rx Vancomycin Dosing) 1 each MISCELLANE DAILY PRN PRN Reason: Consult order Senna (Sennosides 8.6 Mg Tablet) 17.2 mg PO BEDTIME PRN PRN Reason: Constipation Sodium Chloride (0.9 % Sodium Chloride Flush 3 Ml Syringe) 3 ml IVFLUSH QSHIFT [facility] Last Admin: 10/19/21 14:42 Dose: Not Given Documented by: JOSHUA Non-Admin Reason: no peripheral Sodium Chloride (0.9 % Sodium Chloride Flush 10 Ml Syringe) 5 ml IVFLUSH TID [facility] Last Admin: 10/19/21 14:38 Dose: 5 ml Documented by: JOSHUA Labs CBC & Chem 7: 10/19/21 06:27 10/19/21 06:40 Labs: Laboratory Results - last 24 hr 10/18/21 10/18/21 10/19/21 15:59 20:05 06:27 MCV 88.2 MCH 27.7 MCHC 31.4 RDW 13.0 Plt Count 145 L MPV 8.9 L Absolute Nucleated RBC 0.000 Nucleated RBC % (auto) 0.0 ESR Anion Gap Estim Creat Clear Calc Estimated GFR POC Glucose 142 H 181 H Random Glucose Calcium Total Bilirubin AST ALT Alkaline Phosphatase C-Reactive Protein Total Protein Albumin 10/19/21 10/19/21 10/19/21 06:27 06:40 07:34 MCV MCH MCHC RDW Plt Count MPV Absolute Nucleated RBC Nucleated RBC % (auto) ESR 97 H Anion Gap 11 L Estim Creat Clear Calc 119.5 Estimated GFR > 60 POC Glucose 163 H Random Glucose 151 H D Calcium 8.4 Total Bilirubin 0.5 AST 17 ALT 18 Alkaline Phosphatase 72 C-Reactive Protein 3.38 H Total Protein 6.4 L Albumin 2.7 L 10/19/21 11:19 MCV MCH MCHC RDW Plt Count MPV Absolute Nucleated RBC Nucleated RBC % (auto) ESR Anion Gap Estim Creat Clear Calc Estimated GFR POC Glucose 177 H Random Glucose Calcium Total Bilirubin AST ALT Alkaline Phosphatase C-Reactive Protein Total Protein Albumin Microbiology Microbiology Results: Microbiology 10/13/21 20:49 Blood Culture - Final Blood - Venous No growth after 5 days. 10/13/21 20:49 Blood Culture - Final Blood - Venous No growth after 5 days. Assessment and Plan (1) Diabetic osteomyelitis: Status: Acute Plan hospital d#7 66yo M with DM2, HTN, HLD, arthropathy/Charcot foot, neuropathy sent in by [facility] with 2 mo of worsening ulcers of great toe despite course of outpt doxycycline, turned positive for Covid-19 infection 10/16/21 # breakthrough Covid-19 infection - vaccinated with 2 doses of mRNA immunization, last in Apr 2021, not yet boosted - risk factors for severe disease: age, obesity, DM2 - on d#3/3 of IV remdesivir; CRP improved and not hypoxic; isolation for 10 days from onset 10/16/21 # DM2 foot ulcer with osteomyelitis - completed 6 days of pip/florencia, 1d of ertapenem, needs 35 more days of ertapenem via PICC - will need Surgery f/u; has high likelihood of requiring eventual amputation; ulcers debrided to viable tissue at bedside by surgeon; daily wound care with silver alginate and dry dressing # CONSTANTIN - replete Fe orally # B12 deficiency anemia - intrinsic factor antibody pending - pt on monthly parenteral B12 at PCP's office but level is still low; repleting with 1000 mcg IM daily x7d, then 1000 mcg IM weekly x 4 wk, then 1000 mcg IM monthly; check level in 1 mo; VNA can administer # SILVA - resolved with IV fluid hydration + holding lisinopril # hyperK - resolved s/p SZC # HTN - continue metoprolol, resumed home dose of lisinopril # HLD - continue atorvastatin # neuropathy - continue gabapentin # DM2, A1c 7 - basal/bolus insulin # VTE ppx - LMWH # dispo - due to Covid-19, unable to go home where 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
[2021-10-19 15:30] VITALS: BP 126/60; PULSE 60; RESP 18; TEMP 36.2; O2SAT 98
[2021-10-19 16:24] LABS: Glucose, Whole Blood 118 mg/dL (60-115)
[2021-10-19 19:19] VITALS: BP 136/62; PULSE 54; RESP 16; TEMP 36.2; O2SAT 99
[2021-10-19 20:24] LABS: Glucose, Whole Blood 101 mg/dL (60-115)
[2021-10-19] MEDS: Enoxaparin Sodium 40 MG/0.4 ML SYRINGE SUBCUT (21:20)
[2021-10-19 23:50] VITALS: BP 161/67; PULSE 56; RESP 16; TEMP 36.9; O2SAT 98
[2021-10-20 00:11] LABS: Intrinsic Factor Antibodies Negative (Negative)
[2021-10-20] MEDS: 0.9 % Sodium Chloride Flush 3 ML SYRINGE IVFLUSH ×4 (00:14→21:05)
[2021-10-20 04:00] VITALS: BP 162/74; PULSE 80; RESP 16; TEMP 37.2; O2SAT 97
[2021-10-20 07:33] VITALS: BP 186/82; PULSE 54; RESP 17; TEMP 36; O2SAT 94
[2021-10-20 07:41] LABS: Glucose, Whole Blood 88 mg/dL (60-115)
[2021-10-20] MEDS: methADONE HCl 20 MG/2 ML ORAL.CONC 40 MG PO (08:53)
[2021-10-20] MEDS: lisinopriL 10 MG TABLET 30 MG PO (08:54)
[2021-10-20] MEDS: Insulin Glargine,Hum.rec.anlog 100 UNIT/ML 10 ML VIAL 60 UNIT SUBCUT (08:54)
[2021-10-20] MEDS: Metoprolol Succinate ER 25 MG TAB.ER.24H 75 MG PO (08:54)
[2021-10-20] MEDS: Gabapentin 300 MG CAPSULE PO ×3 (08:54→21:04)
[2021-10-20] MEDS: Ferrous Sulfate 324 MG TABLET.DR PO (08:54)
[2021-10-20] MEDS: Atorvastatin Calcium 20 MG TABLET PO (08:54)
[2021-10-20] MEDS: Insulin Lispro 100 UNIT/ML 3 ML VIAL 10 UNIT SUBCUT ×3 (08:55→17:09)
[2021-10-20] MEDS: 0.9 % Sodium Chloride Flush 10 ML SYRINGE 5 ML IVFLUSH ×3 (10:12→21:06)
[2021-10-20 11:05] VITALS: BP 189/90; PULSE 54; RESP 17; TEMP 36.1; O2SAT 98
[2021-10-20 11:23] LABS: Glucose, Whole Blood 124 mg/dL (60-115)
--- NOTE | 2021-10-20 14:17 | MHC.CM.PN ---
PT APPEALED HIS DC YESTERDAY. PT WAS INFORMED TODAY THAT HE HAD LOST THE APPEAL HOWEVER HE THEN REQUESTED A RECONSIDERATION WHICH COULD TAKE UP TO 14 DAYS. PT CONTINUES TO STATE HE WANTS TO GO HOME. PER . PT WILL BE COVID RECOVERED TOMORROW HE HAS HAD HIS VACCINES KIRA JOSUE WILL COME IN TO PROVIDE A TEACH TO THE PT AND HIS DAUGHTER TOMORROW TO DETERMINE IF THEY WILL BE ABLE TO MANAGE HIS IV ABX AT HOME. SHIRA MACEA IS FOLLOWING AND MAY BE ABLE TO PROVIDE SERVICES DEPENDING ON NEEDS. CURRENT DCP IS HOME WITH VNA AND HI VS STR DEPENDING ON PTS/DTR ABILITY TO MANAGE IV MEDS AT HOME FOLLOWING TEACH
--- NOTE | 2021-10-20 15:31 | P.PNIM_ITS ---
Subjective Subjective Date of Service: 10/20/21 Interval History: no acute issues overnight Review of Systems Denies CP Denies SOB Denies N/V/D Physical Exam Vital Signs: Vital Signs: Last Vital Signs Temp 97.0 F 10/20/21 11:05 Pulse 54 10/20/21 11:05 Resp 17 10/20/21 11:05 BP 189/90 H 10/20/21 11:05 Pulse Ox 98 10/20/21 11:05 BMI result Body Mass Index 32.5 Objective Data Active Medications Acetaminophen (Acetaminophen 325 Mg Tablet) 650 mg PO Q6H PRN PRN Reason: Pain, Mild (Pain Scale 1-3) Last Admin: 10/15/21 17:33 Dose: 650 mg Documented by: MY Atorvastatin Calcium (Atorvastatin Calcium 20 Mg Tablet) 20 mg PO DAILY [facility] Last Admin: 10/20/21 08:54 Dose: 20 mg Documented by: CRISTY Dextrose (Dextrose 50 % 25 Gm/50 Ml Syringe) 25 gm IVPUSH Q15M PRN; Protocol PRN Reason: per Hypoglycemia Standing Ord. Enoxaparin Sodium (Enoxaparin Sodium 40 Mg/0.4 Ml Syringe) 40 mg SUBCUT Q24H [facility] Last Admin: 10/19/21 21:20 Dose: 40 mg Documented by: MAINE Ferrous Sulfate (Ferrous Sulfate 324 Mg Tablet.) 324 mg PO DAILY [facility] Last Admin: 10/20/21 08:54 Dose: 324 mg Documented by: CRISTY Gabapentin (Gabapentin 300 Mg Capsule) 300 mg PO TID [facility] Last Admin: 10/20/21 08:54 Dose: 300 mg Documented by: CRISTY Glucose (Glucose Gel 15 Gm Gel..Gram.) 15 gm PO Q15M PRN; Protocol PRN Reason: per Hypoglycemia Standing Ord. Insulin Glargine (Insulin Glargine,Hum.Rec.Anlog 100 Unit/Ml 10 Ml Vial) 60 unit SUBCUT BID [facility] Last Admin: 10/20/21 08:54 Dose: 60 unit Documented by: CIRSTY Insulin Human Lispro (Insulin Lispro 100 Unit/Ml 3 Ml Vial) 0 unit SUBCUT QIDACHS [facility]; Protocol Last Admin: 10/20/21 11:27 Dose: Not Given Documented by: CRISTY Non-Admin Reason: No Insulin Coverage Insulin Human Lispro (Insulin Lispro 100 Unit/Ml 3 Ml Vial) 10 unit SUBCUT TIDWM [facility] Last Admin: 10/20/21 12:11 Dose: 10 unit Documented by: CRISTY Lisinopril (Lisinopril 10 Mg Tablet) 30 mg PO DAILY [facility]; Protocol Last Admin: 10/20/21 08:54 Dose: 30 mg Documented by: CRISTY Melatonin (Melatonin 3 Mg Tablet) 6 mg PO BEDTIME PRN PRN Reason: Insomnia Methadone HCl (Methadone Hcl 20 Mg/2 Ml Oral.Conc) 40 mg PO DAILY [facility] Last Admin: 10/20/21 08:53 Dose: 40 mg Documented by: CRISTY Metoprolol Succinate (Metoprolol Succinate Er 25 Mg Tab.Er.24h) 75 mg PO DAILY [facility]; Protocol Last Admin: 10/20/21 08:54 Dose: 75 mg Documented by: CRISTY Pharmacy Consult (Consult Rx Perform Med Rec) 1 each MISCELLANE ONCE PRN PRN Reason: Consult order Pharmacy Consult (Consult Rx Vancomycin Dosing) 1 each MISCELLANE DAILY PRN PRN Reason: Consult order Senna (Sennosides 8.6 Mg Tablet) 17.2 mg PO BEDTIME PRN PRN Reason: Constipation Sodium Chloride (0.9 % Sodium Chloride Flush 3 Ml Syringe) 3 ml IVFLUSH QSHIFT [facility] Last Admin: 10/20/21 08:53 Dose: 3 ml Documented by: CRISTY Sodium Chloride (0.9 % Sodium Chloride Flush 10 Ml Syringe) 5 ml IVFLUSH TID [facility] Last Admin: 10/20/21 12:12 Dose: 5 ml Documented by: CRISTY Labs CBC & Chem 7: 10/19/21 06:27 10/19/21 06:40 Labs: Laboratory Results - last 24 hr 10/14/21 10/19/21 10/19/21 10:33 16:20 20:20 POC Glucose 118 H 101 Intrinsic Factor Ab Negative 10/20/21 10/20/21 07:37 11:11 POC Glucose 88 124 H Intrinsic Factor Ab Assessment and Plan (1) COVID-19 virus infection: Status: Acute (2) Diabetic osteomyelitis: Status: Acute Plan 66yo M with DM2, HTN, HLD, arthropathy/Charcot foot, neuropathy sent in by [facility] with 2 mo of worsening ulcers of great toe despite course of outpt doxycycline, turned positive for Covid-19 infection 10/16/21 1.Covid-19 infection - vaccinated with 2 doses of mRNA immunization, last in Apr 2021, not yet boosted - 2. DM2 foot ulcer with osteomyelitis - completed 6 days of pip/florencia, 1d of ertapenem, needs 35 more days of ertapenem via PICC - D/C in am 3. HTN - continue metoprolol, resumed home dose of lisinopril 4. DMII - basal/bolus insulin # VTE ppx - LMWH Quality Stroke Does the patient have a stroke diagnosis?: No VTE Prior VTE?: No VTE Risk Level:: Medical - moderate - high VTE Device Contraindication: Treatment Not Indicated VTE Drug Contraindication: N/A - Med Ordered
[2021-10-20 16:00] VITALS: BP 130/60; PULSE 60; RESP 16; TEMP 37.2; O2SAT 99
--- NOTE | 2021-10-20 16:41 | PC.NURSE ---
Pt is alert and oriented x4. Pt denioes pain or discomfort.Right great Toe DFU cleansed with NS, Aq ag applied and covered with DCD. Py was wondering why he is not getting a debridement while he is here at the hospital. explained to him that he will have to go to the wound center when he leaves here tomorrow.
[2021-10-20 17:03] LABS: Glucose, Whole Blood 91 mg/dL (60-115)
[2021-10-20] MEDS: Cyanocobalamin (Vitamin B-12) 1,000 MCG/ML VIAL 1000 MCG IM (17:08)
[2021-10-20 20:00] VITALS: BP 155/70; PULSE 58; RESP 18; TEMP 36.3; O2SAT 98
[2021-10-20 20:39] LABS: Glucose, Whole Blood 70 mg/dL (60-115)
[2021-10-20] MEDS: Enoxaparin Sodium 40 MG/0.4 ML SYRINGE SUBCUT (21:04)
[2021-10-20 23:36] VITALS: BP 164/71; PULSE 52; RESP 20; TEMP 36.2; O2SAT 98
[2021-10-21 03:20] VITALS: BP 141/63; PULSE 49; RESP 20; TEMP 36.1; O2SAT 98
[2021-10-21 05:26] LABS: Glucose, Whole Blood 75 mg/dL (60-115)
[2021-10-21 07:25] LABS: Glucose, Whole Blood 92 mg/dL (60-115)
[2021-10-21 07:56] VITALS: BP 148/71; PULSE 50; RESP 18; TEMP 36.3; O2SAT 99
[2021-10-21] MEDS: methADONE HCl 20 MG/2 ML ORAL.CONC 40 MG PO (08:24)
[2021-10-21] MEDS: 0.9 % Sodium Chloride Flush 3 ML SYRINGE IVFLUSH ×2 (08:24→16:57)
[2021-10-21] MEDS: Gabapentin 300 MG CAPSULE PO ×3 (08:25→20:06)
[2021-10-21] MEDS: Insulin Glargine,Hum.rec.anlog 100 UNIT/ML 10 ML VIAL 60 UNIT SUBCUT (08:25)
[2021-10-21] MEDS: lisinopriL 10 MG TABLET 30 MG PO (08:25)
[2021-10-21] MEDS: Insulin Lispro 100 UNIT/ML 3 ML VIAL 10 UNIT SUBCUT ×3 (08:25→16:56)
[2021-10-21] MEDS: Atorvastatin Calcium 20 MG TABLET PO (08:26)
[2021-10-21] MEDS: Ferrous Sulfate 324 MG TABLET.DR PO (08:26)
[2021-10-21] MEDS: Metoprolol Succinate ER 25 MG TAB.ER.24H 75 MG PO (08:26)
[2021-10-21] MEDS: 0.9 % Sodium Chloride Flush 10 ML SYRINGE 5 ML IVFLUSH ×3 (10:39→22:44)
[2021-10-21 11:26] LABS: Glucose, Whole Blood 96 mg/dL (60-115)
[2021-10-21] MEDS: Ertapenem Sodium 1 GM in 0.9 % Sodium Chloride 50 ML IV (12:57)
--- NOTE | 2021-10-21 13:58 | MHC.CM.PN ---
Male 66 DX Covid+, wound infection. He will discharge to home tomorrow with IV ABX. [employer] Performed IV ABX administration education. She reported that the patient and his daughter are competent to manage ABX administration. [facility] is not available to start services until Sunday10/23/21. notified that Patient will need ABX prior to discharge tomorrow; because the [facility] can not start services tomorrow.
[2021-10-21 15:21] VITALS: BP 179/75; PULSE 49; RESP 20; TEMP 36.7; O2SAT 95
--- NOTE | 2021-10-21 15:22 | P.PNIM_ITS ---
Subjective Subjective Date of Service: 10/21/21 Interval History: no acute issues overnight Review of Systems Denies CP Denies SOB Denies N/V/D Physical Exam Vital Signs: Vital Signs: Last Vital Signs Temp 97.3 F 10/21/21 07:56 Pulse 50 10/21/21 07:56 Resp 18 10/21/21 07:56 BP 148/71 H 10/21/21 07:56 Pulse Ox 99 10/21/21 07:56 BMI result Body Mass Index 32.5 Const: General: cooperative, comfortable and well developed Nutritional Appearance: well nourished Orientation/consciousness: patient oriented x3 Neuro: General: patient oriented x3 Objective Data Active Medications Acetaminophen (Acetaminophen 325 Mg Tablet) 650 mg PO Q6H PRN PRN Reason: Pain, Mild (Pain Scale 1-3) Last Admin: 10/15/21 17:33 Dose: 650 mg Documented by: MY Atorvastatin Calcium (Atorvastatin Calcium 20 Mg Tablet) 20 mg PO DAILY [facility] Last Admin: 10/21/21 08:26 Dose: 20 mg Documented by: CRISTY Dextrose (Dextrose 50 % 25 Gm/50 Ml Syringe) 25 gm IVPUSH Q15M PRN; Protocol PRN Reason: per Hypoglycemia Standing Ord. Enoxaparin Sodium (Enoxaparin Sodium 40 Mg/0.4 Ml Syringe) 40 mg SUBCUT Q24H [facility] Last Admin: 10/20/21 21:04 Dose: 40 mg Documented by: RUDDY Ferrous Sulfate (Ferrous Sulfate 324 Mg Tablet.Dr) 324 mg PO DAILY [facility] Last Admin: 10/21/21 08:26 Dose: 324 mg Documented by: CRISTY Gabapentin (Gabapentin 300 Mg Capsule) 300 mg PO TID [facility] Last Admin: 10/21/21 08:25 Dose: 300 mg Documented by: CRISTY Glucose (Glucose Gel 15 Gm Gel..Gram.) 15 gm PO Q15M PRN; Protocol PRN Reason: per Hypoglycemia Standing Ord. Insulin Glargine (Insulin Glargine,Hum.Rec.Anlog 100 Unit/Ml 10 Ml Vial) 60 unit SUBCUT BID [facility] Last Admin: 10/21/21 08:25 Dose: 60 unit Documented by: CRISTY Insulin Human Lispro (Insulin Lispro 100 Unit/Ml 3 Ml Vial) 0 unit SUBCUT QIDACHS [facility]; Protocol Last Admin: 10/21/21 12:40 Dose: Not Given Documented by: CRISTY Non-Admin Reason: No Insulin Coverage Insulin Human Lispro (Insulin Lispro 100 Unit/Ml 3 Ml Vial) 10 unit SUBCUT TIDWM [facility] Last Admin: 10/21/21 12:21 Dose: 10 unit Documented by: CRISTY Lisinopril (Lisinopril 10 Mg Tablet) 30 mg PO DAILY [facility]; Protocol Last Admin: 10/21/21 08:25 Dose: 30 mg Documented by: CRISTY Melatonin (Melatonin 3 Mg Tablet) 6 mg PO BEDTIME PRN PRN Reason: Insomnia Methadone HCl (Methadone Hcl 20 Mg/2 Ml Oral.Conc) 40 mg PO DAILY [facility] Last Admin: 10/21/21 08:24 Dose: 40 mg Documented by: CRISTY Metoprolol Succinate (Metoprolol Succinate Er 25 Mg Tab.Er.24h) 75 mg PO DAILY [facility]; Protocol Last Admin: 10/21/21 08:26 Dose: 75 mg Documented by: CRISTY Pharmacy Consult (Consult Rx Perform Med Rec) 1 each MISCELLANE ONCE PRN PRN Reason: Consult order Senna (Sennosides 8.6 Mg Tablet) 17.2 mg PO BEDTIME PRN PRN Reason: Constipation Sodium Chloride (0.9 % Sodium Chloride Flush 3 Ml Syringe) 3 ml IVFLUSH QSHIFT [facility] Last Admin: 10/21/21 08:24 Dose: 3 ml Documented by: CRISTY Sodium Chloride (0.9 % Sodium Chloride Flush 10 Ml Syringe) 5 ml IVFLUSH TID [facility] Last Admin: 10/21/21 10:39 Dose: 5 ml Documented by: CRISTY Labs CBC & Chem 7: 10/19/21 06:27 10/19/21 06:40 Labs: Laboratory Results - last 24 hr 10/20/21 10/20/21 10/21/21 16:59 20:34 05:23 POC Glucose 91 70 75 10/21/21 10/21/21 07:21 11:23 POC Glucose 92 96 Assessment and Plan (1) COVID-19 virus infection: Status: Acute (2) Diabetic osteomyelitis: Status: Acute (3) Diabetic ulcer of right great toe: Status: Acute Plan 66yo M with DM2, HTN, HLD, arthropathy/Charcot foot, neuropathy sent in by [facility] with 2 mo of worsening ulcers of great toe despite course of outpt doxycycline, turned positive for Covid-19 infection 10/16/21 1.Covid-19 infection - vaccinated with 2 doses of mRNA immunization, last in Apr 2021, not yet boosted - 2. DM2 foot ulcer with osteomyelitis - completed 6 days of pip/florencia, 2d of ertapenem, needs 34 more days of ertapenem via PICC - Awaiting [facility] for discharge 3. HTN - continue metoprolol, resumed home dose of lisinopril 4. DMII - basal/bolus insulin # VTE ppx - LMWH Quality Stroke Does the patient have a stroke diagnosis?: No VTE Prior VTE?: No VTE Risk Level:: Medical - moderate - high VTE Device Contraindication: Treatment Not Indicated VTE Drug Contraindication: N/A - Med Ordered
[2021-10-21 16:05] LABS: Glucose, Whole Blood 97 mg/dL (60-115)
--- NOTE | 2021-10-21 18:11 | PC.NURSE ---
Pt is alert and oriented x4. Denies pain or discomfort. Pt continues with IV ABT therapy for Osteomyelitis. Right upper arm PICC line is intact and patent with no S/SX of infection. Pt was seen by IV home infusion Nurse and educated along with his daughter. Pt will D/C home tomorrow after IV infusion and his home services will start on Sunday.
[2021-10-21 19:18] VITALS: BP 196/80; PULSE 88; RESP 20; TEMP 36.7; O2SAT 96
[2021-10-21 19:45] LABS: Glucose, Whole Blood 119 mg/dL (60-115)
[2021-10-21 23:23] VITALS: BP 113/58; PULSE 45; RESP 20; TEMP 36.7; O2SAT 95
[2021-10-22] MEDS: Enoxaparin Sodium 40 MG/0.4 ML SYRINGE SUBCUT (00:24)
[2021-10-22] MEDS: 0.9 % Sodium Chloride Flush 3 ML SYRINGE IVFLUSH ×2 (01:12→08:59)
[2021-10-22 03:36] VITALS: BP 93/53; PULSE 55; RESP 18; TEMP 36.6; O2SAT 97
[2021-10-22 07:39] VITALS: BP 134/62; PULSE 60; RESP 20; TEMP 36.4; O2SAT 95
[2021-10-22 07:42] LABS: Glucose, Whole Blood 165 mg/dL (60-115)
[2021-10-22] MEDS: Insulin Lispro 100 UNIT/ML 3 ML VIAL 10 UNIT SUBCUT (08:56)
[2021-10-22] MEDS: Insulin Lispro 100 UNIT/ML 3 ML VIAL SUBCUT (08:56)
[2021-10-22] MEDS: methADONE HCl 20 MG/2 ML ORAL.CONC 40 MG PO (08:57)
[2021-10-22] MEDS: Gabapentin 300 MG CAPSULE PO (08:58)
[2021-10-22] MEDS: Metoprolol Succinate ER 25 MG TAB.ER.24H 75 MG PO (08:58)
[2021-10-22] MEDS: Atorvastatin Calcium 20 MG TABLET PO (08:58)
[2021-10-22] MEDS: lisinopriL 10 MG TABLET 30 MG PO (08:59)
[2021-10-22] MEDS: Ferrous Sulfate 324 MG TABLET.DR PO (08:59)
[2021-10-22] MEDS: Insulin Glargine,Hum.rec.anlog 100 UNIT/ML 10 ML VIAL 60 UNIT SUBCUT (09:42)
[2021-10-22] MEDS: Ertapenem Sodium 1 GM in 0.9 % Sodium Chloride 50 ML IV (10:33)
[2021-10-22] MEDS: 0.9 % Sodium Chloride Flush 10 ML SYRINGE 5 ML IVFLUSH (10:34)
--- NOTE | 2021-10-22 10:47 | PM.EVENT ---
Event Note Date of Service: 10/22/21 Event Note: Seen/examined. Home today with [facility] f/up..IV ertapenem as ordered
--- NOTE | 2021-10-22 15:50 | MHC.CM.PN ---
CM SPOKE TO PT WHO CONFIRMED HIS MEDS AND SUPPLIES HAD BEEN DELIVERED HE IS AWARE THE [facility] WILL START TOMORROW [facility] IS AWARE OF DC AND CONFIRMED SOC FOR TOMORROW
== END 2021-10-22 12:43 | disposition home health service (06) | DRG 622 ==
LOC: HO.ED 21:26 → HO.EDOVER 22:47 → HO.S3 10-14 02:59 → HO.IMC 10-16 15:51
PROVIDERS: Family Medicine; Nurse Practitioner Family; Admitting Provider Hospitalist; Emergency Provider Emergency Medicine; PCP Surgery; Visit Provider Hospitalist
DX: E11.621 Type 2 diabetes mellitus with foot ulcer (principal); U07.1 COVID-19; M86.9 Osteomyelitis, unspecified; E11.40 Type 2 diabetes mellitus with diabetic neuropathy, unspecified; N17.9 Acute kidney failure, unspecified; E78.5 Hyperlipidemia, unspecified; D50.9 Iron deficiency anemia, unspecified; D51.9 Vitamin B12 deficiency anemia, unspecified; E87.5 Hyperkalemia; I10 Essential (primary) hypertension; E78.00 Pure hypercholesterolemia, unspecified; L97.519 Non-pressure chronic ulcer of other part of right foot with unspecified severity; Z79.4 Long term (current) use of insulin; Z79.891 Long term (current) use of opiate analgesic; Z79.899 Other long term (current) drug therapy
CPT/HCPCS: 36415; 36573; 73630; 80048; 80053; 80202; 82607; 82728; 82746; 82947; 83036; 83540; 83605; 83735; 83880; 85025; 85027; 85045; 85652; 86140; 86340; 87040; 87071; 87077; 87186; 87205; 87635; 93971; 96365; 96366; 97161; 99285; C1751; J0248; J1335; J1650; J2543; J3370

== ENCOUNTER 2021-10-26 12:58 | Outpatient (REF) | payer MEDICARE, SELFPAY ==
[2021-10-26 13:04] LABS: MANUAL DIFF FLAG NO
[2021-10-26 13:08] LABS: Basophils Percent Auto 0.3 % (0-2); Eosinophils Absolute Auto 0.2 X10*3/uL (0.0-0.4); Eosinophils Percent Auto 2.4 % (0-4); Hemoglobin 9.7 g/dl (14.0-18.0); Imm Gran Pct Auto 1.5 % (0.0-0.4); Lymphocytes Absolute Auto 2.9 X10*3/uL (1.2-4.9); Lymphocytes Percent Auto 42.4 % (20-40); Mean Corpuscular HGB Conc 31.3 g/dl (31.0-36.0); Mean Corpuscular Volume 89.6 fL (80.0-98.0); Mean Platelet Volume 9.6 fL (9.4-12.4); Monocytes Absolute Auto 0.4 X10*3/uL (0.1-1.2); Monocytes Percent Auto 5.4 % (2-11); Neutrophils Absolute Auto 3.3 x10*3/uL (2.0-8.3); Platelet Count 188 X10*3/uL (160-400); Red Blood Count 3.46 X10*6/uL (4.60-5.80); Red Cell Distribution Width 14.6 % (11.0-16.0); White Blood Count 6.8 X10*3/uL (4.8-10.8)
[2021-10-26 13:35] LABS: Aspartate Amino Transferase 14 U/L (5-37); Estimated Glomerular Filt Rate > 60
[2021-10-26 13:39] LABS: Erythrocyte Sedimentation Rate 59 MM/HR (0-15)
== END 2021-10-26 12:59 | disposition home or self-care (01) ==
LOC: HO.HVNA 12:58
PROVIDERS: Visit Provider Internal Medicine
DX: M86.9 Osteomyelitis, unspecified (principal); E11.621 Type 2 diabetes mellitus with foot ulcer; Z79.2 Long term (current) use of antibiotics
CPT/HCPCS: 36415; 82565; 84450; 85025; 85652

== ENCOUNTER 2021-11-02 12:22 | Outpatient (REF) | payer OTHER, SELFPAY ==
[2021-11-02 12:29] LABS: MANUAL DIFF FLAG NO
[2021-11-02 12:38] LABS: Basophils Absolute Auto 0.1 X10*3/uL (0.0-0.2); Basophils Percent Auto 0.7 % (0-2); Eosinophils Absolute Auto 0.1 X10*3/uL (0.0-0.4); Hematocrit 35.2 % (42.0-52.0); Hemoglobin 11.3 g/dl (14.0-18.0); Imm Gran Abs Auto 0.03 X10*3/uL (0.00-0.03); Imm Gran Pct Auto 0.4 % (0.0-0.4); Lymphocytes Absolute Auto 2.3 X10*3/uL (1.2-4.9); Lymphocytes Percent Auto 32.1 % (20-40); Mean Corpuscular HGB Conc 32.1 g/dl (31.0-36.0); Mean Corpuscular Volume 87.1 fL (80.0-98.0); Mean Platelet Volume 9.7 fL (9.4-12.4); Monocytes Absolute Auto 0.3 X10*3/uL (0.1-1.2); Monocytes Percent Auto 4.4 % (2-11); Neutrophils Absolute Auto 4.3 x10*3/uL (2.0-8.3); Neutrophils Percent Auto 60.4 % (45-73); Platelet Count 189 X10*3/uL (160-400); Red Blood Count 4.04 X10*6/uL (4.60-5.80); Red Cell Distribution Width 14.7 % (11.0-16.0); White Blood Count 7.1 X10*3/uL (4.8-10.8)
[2021-11-02 14:13] LABS: Aspartate Amino Transferase 24 U/L (5-37); Estimated Glomerular Filt Rate > 60
[2021-11-02 16:32] LABS: Erythrocyte Sedimentation Rate 34 MM/HR (0-15)
== END 2021-11-02 12:23 | disposition home or self-care (01) ==
LOC: HO.HVNA 12:22
PROVIDERS: Visit Provider Internal Medicine
DX: M86.9 Osteomyelitis, unspecified (principal); B95.61 Methicillin susceptible Staphylococcus aureus infection as the cause of diseases classified elsewhere; Z79.2 Long term (current) use of antibiotics
CPT/HCPCS: 36415; 82565; 84450; 85025; 85652

== ENCOUNTER 2021-11-09 13:30 | Outpatient (REF) | payer OTHER, SELFPAY ==
[2021-11-09 13:34] LABS: MANUAL DIFF FLAG NO
[2021-11-09 13:41] LABS: Basophils Percent Auto 0.3 % (0-2); Eosinophils Absolute Auto 0.2 X10*3/uL (0.0-0.4); Eosinophils Percent Auto 2.6 % (0-4); Hematocrit 32.9 % (42.0-52.0); Hemoglobin 10.8 g/dl (14.0-18.0); Imm Gran Abs Auto 0.02 X10*3/uL (0.00-0.03); Imm Gran Pct Auto 0.3 % (0.0-0.4); Lymphocytes Percent Auto 32.7 % (20-40); Mean Corpuscular HGB Conc 32.8 g/dl (31.0-36.0); Mean Corpuscular Hemoglobin 28.5 pg (27.0-33.0); Mean Corpuscular Volume 86.8 fL (80.0-98.0); Mean Platelet Volume 10.2 fL (9.4-12.4); Monocytes Absolute Auto 0.4 X10*3/uL (0.1-1.2); Monocytes Percent Auto 6.6 % (2-11); Neutrophils Absolute Auto 3.5 x10*3/uL (2.0-8.3); Neutrophils Percent Auto 57.5 % (45-73); Platelet Count 154 X10*3/uL (160-400); Red Blood Count 3.79 X10*6/uL (4.60-5.80); Red Cell Distribution Width 14.2 % (11.0-16.0); White Blood Count 6.1 X10*3/uL (4.8-10.8)
[2021-11-09 14:05] LABS: Aspartate Amino Transferase 22 U/L (5-37); Estimated Glomerular Filt Rate > 60
[2021-11-09 14:30] LABS: Erythrocyte Sedimentation Rate 32 MM/HR (0-15)
== END 2021-11-09 13:31 | disposition home or self-care (01) ==
LOC: HO.HVNA 13:30
PROVIDERS: Visit Provider Internal Medicine
DX: M86.9 Osteomyelitis, unspecified (principal); B95.61 Methicillin susceptible Staphylococcus aureus infection as the cause of diseases classified elsewhere; L97.512 Non-pressure chronic ulcer of other part of right foot with fat layer exposed
CPT/HCPCS: 36415; 82565; 84450; 85025; 85652

== ENCOUNTER 2021-11-16 13:43 | Outpatient (REF) | payer OTHER, SELFPAY ==
[2021-11-16 13:49] LABS: MANUAL DIFF FLAG NO
[2021-11-16 13:57] LABS: Basophils Percent Auto 0.4 % (0-2); Eosinophils Absolute Auto 0.2 X10*3/uL (0.0-0.4); Eosinophils Percent Auto 4.2 % (0-4); Hematocrit 33.5 % (42.0-52.0); Hemoglobin 10.7 g/dl (14.0-18.0); Imm Gran Abs Auto 0.05 X10*3/uL (0.00-0.03); Imm Gran Pct Auto 0.9 % (0.0-0.4); Lymphocytes Absolute Auto 1.8 X10*3/uL (1.2-4.9); Lymphocytes Percent Auto 34.6 % (20-40); Mean Corpuscular HGB Conc 31.9 g/dl (31.0-36.0); Mean Corpuscular Hemoglobin 27.9 pg (27.0-33.0); Mean Corpuscular Volume 87.5 fL (80.0-98.0); Mean Platelet Volume 9.6 fL (9.4-12.4); Monocytes Absolute Auto 0.4 X10*3/uL (0.1-1.2); Monocytes Percent Auto 7.4 % (2-11); Neutrophils Absolute Auto 2.8 x10*3/uL (2.0-8.3); Neutrophils Percent Auto 52.5 % (45-73); Platelet Count 144 X10*3/uL (160-400); Red Blood Count 3.83 X10*6/uL (4.60-5.80); Red Cell Distribution Width 13.8 % (11.0-16.0); White Blood Count 5.3 X10*3/uL (4.8-10.8)
[2021-11-16 14:32] LABS: Erythrocyte Sedimentation Rate 26 MM/HR (0-15)
[2021-11-16 14:38] LABS: Aspartate Amino Transferase 25 U/L (5-37); Estimated Glomerular Filt Rate > 60
== END 2021-11-16 13:44 | disposition home or self-care (01) ==
LOC: HO.HVNA 13:43
PROVIDERS: Visit Provider Internal Medicine
DX: M86.9 Osteomyelitis, unspecified (principal); B95.61 Methicillin susceptible Staphylococcus aureus infection as the cause of diseases classified elsewhere
CPT/HCPCS: 36415; 82565; 84450; 85025; 85652

== ENCOUNTER → 2021-11-23 14:45 | Outpatient (BNVA) | payer OTHER, SELFPAY | PROVIDERS: Visit Provider Internal Medicine | DX: Z13.89 Encounter for screening for other disorder (principal) ==

== ENCOUNTER 2021-11-23 17:47 | Outpatient (REF) | payer OTHER, SELFPAY ==
[2021-11-23 17:58] LABS: MANUAL DIFF FLAG NO
[2021-11-23 18:08] LABS: Basophils Percent Auto 0.3 % (0-2); Eosinophils Absolute Auto 0.2 X10*3/uL (0.0-0.4); Eosinophils Percent Auto 2.2 % (0-4); Hematocrit 32.3 % (42.0-52.0); Hemoglobin 10.6 g/dl (14.0-18.0); Imm Gran Abs Auto 0.03 X10*3/uL (0.00-0.03); Imm Gran Pct Auto 0.4 % (0.0-0.4); Lymphocytes Absolute Auto 2.6 X10*3/uL (1.2-4.9); Lymphocytes Percent Auto 37.5 % (20-40); Mean Corpuscular HGB Conc 32.8 g/dl (31.0-36.0); Mean Corpuscular Hemoglobin 28.2 pg (27.0-33.0); Mean Corpuscular Volume 85.9 fL (80.0-98.0); Mean Platelet Volume 9.9 fL (9.4-12.4); Monocytes Absolute Auto 0.4 X10*3/uL (0.1-1.2); Monocytes Percent Auto 5.6 % (2-11); Neutrophils Absolute Auto 3.7 x10*3/uL (2.0-8.3); Platelet Count 141 X10*3/uL (160-400); Red Blood Count 3.76 X10*6/uL (4.60-5.80); Red Cell Distribution Width 13.9 % (11.0-16.0); White Blood Count 6.8 X10*3/uL (4.8-10.8)
[2021-11-23 18:44] LABS: Erythrocyte Sedimentation Rate 23 MM/HR (0-15)
[2021-11-23 18:46] LABS: Aspartate Amino Transferase 36 U/L (5-37); Estimated Glomerular Filt Rate > 60
== END 2021-11-23 17:48 | disposition home or self-care (01) ==
LOC: HO.HVNA 17:47
PROVIDERS: Visit Provider Internal Medicine
DX: M86.9 Osteomyelitis, unspecified (principal); B95.61 Methicillin susceptible Staphylococcus aureus infection as the cause of diseases classified elsewhere; E11.621 Type 2 diabetes mellitus with foot ulcer; E11.69 Type 2 diabetes mellitus with other specified complication; L97.519 Non-pressure chronic ulcer of other part of right foot with unspecified severity
CPT/HCPCS: 36415; 82565; 84450; 85025; 85652; 99212

== ENCOUNTER → 2022-01-02 14:17 | Outpatient (BNVA) | payer OTHER, SELFPAY | PROVIDERS: Visit Provider Internal Medicine | DX: E11.621 Type 2 diabetes mellitus with foot ulcer (principal); L97.519 Non-pressure chronic ulcer of other part of right foot with unspecified severity | CPT/HCPCS: 99212 ==

== ENCOUNTER 2022-02-19 16:04 | Emergency (ER) | payer OTHER, SELFPAY ==
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
[2022-02-19 16:13] VITALS: BP 134/62; PULSE 62; RESP 14; TEMP 37.1; O2SAT 95; BMI 33.2
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
[2022-02-19 16:27] VITALS: BP 118/56; PULSE 59; RESP 20; TEMP 36.9; O2SAT 95
[2022-02-19] MEDS: Diphth,Pertus(ACell),Tet Adult 0.5 ML SYRINGE IM (17:18)
[2022-02-19] MEDS: Bacitracin Oint 14 GM TUBE 1 APPL TOPICAL (17:48)
[2022-02-19 20:42] VITALS: BP 160/60; PULSE 64; RESP 16; O2SAT 97
== END 2022-02-19 22:30 | disposition home or self-care (01) ==
PROVIDERS: Emergency Provider Emergency Medicine
DX: S61.411A Laceration without foreign body of right hand, initial encounter (principal); S61.412A Laceration without foreign body of left hand, initial encounter; S81.812A Laceration without foreign body, left lower leg, initial encounter; S81.811A Laceration without foreign body, right lower leg, initial encounter; S09.90XA Unspecified injury of head, initial encounter; E11.621 Type 2 diabetes mellitus with foot ulcer; L97.519 Non-pressure chronic ulcer of other part of right foot with unspecified severity; I10 Essential (primary) hypertension; V49.9XXA Car occupant (driver) (passenger) injured in unspecified traffic accident, initial encounter; Y93.9 Activity, unspecified; Y92.410 Unspecified street and highway as the place of occurrence of the external cause; Y99.9 Unspecified external cause status
CPT/HCPCS: 70450; 72125; 73630; 90471; 90715; 99284

== ENCOUNTER 2022-02-28 14:00 | Outpatient (RCR) | payer OTHER, SELFPAY | END 2022-06-23 14:22 | disposition home or self-care (01) | LOC: HO.WCC 14:00 | PROVIDERS: PCP Internal Medicine; Visit Provider Physician Assistant | DX: S81.812D Laceration without foreign body, left lower leg, subsequent encounter (principal) | CPT/HCPCS: 11042; 11043; 11045; 11046; 15271; 15275; 97597; 97598; 99212; Q4187 ==

== ENCOUNTER 2022-11-11 20:18 | Inpatient (IN) | payer OTHER, SELFPAY ==
--- NOTE | ~2022-11-11 | CT_ITS ---
EXAMINATION: CT LOWER LEG WITH CONTRAST, RIGHT CT LOWER LEG WITH CONTRAST, LEFT CLINICAL INFORMATION: Bilateral lower extremity redness. Evaluate for osteomyelitis. COMPARISON: Bilateral ankle radiographs done earlier the same day. TECHNIQUE: Contiguous axial CT images of the right and left lower leg were obtained following the IV administration of 100 mL Omnipaque 350 contrast. Sagittal and coronal reformats were provided and reviewed. This CT examination was performed using dose optimization techniques as appropriate, variously including the following: *Automated exposure control *Adjustment of mA and/or kV according to patient size (this includes techniques or standardized protocols for targeted exams where dose is matched to indication/reason for exam; i.e. extremities or head) *Use of iterative reconstruction technique. DOSE: 291 mGy-cm. FINDINGS: RIGHT LOWER LEG: Circumferential subcutaneous edema within the lower leg, most prominent laterally. Findings extend along the dorsal aspect of the foot. No organized fluid collection or peripherally enhancing fluid collection to suggest abscess formation. No obvious soft tissue ulceration. Diffuse midfoot collapse with significant plantar subluxation of the talus as well as multiple fragments and bony remodeling involving the navicula and cuneiforms as seen on the prior radiographs, consistent with Charcot arthropathy. There is osseous bridging across the calcaneocuboid joint. Multiple associated osseous erosions with adjacent soft tissue gas. Findings may be related to Charcot arthropathy. A superimposed infectious process/osteomyelitis cannot be excluded on CT examination. Diffuse, severe muscle atrophy and fatty replacement without a measurable tear or retraction. No active extravasation of contrast to suggest arterial or venous injury. LEFT LOWER LEG: Circumferential subcutaneous edema, most prominent laterally. There appears to be focal soft tissue ulceration/subcutaneous air along the lateral aspect of the posterior calcaneus. Findings are consistent with acute cellulitis. No organized fluid collection or peripherally enhancing fluid collection to suggest abscess formation. No significant adjacent periosteal reaction or cortical erosion to suggest calcaneal osteomyelitis. Joint space narrowing with marginal osteophytes throughout the midfoot, most prominent at the calcaneal cuboid joint, consistent with arthritis. No concerning lytic or blastic osseous lesion. No acute fracture or dislocation. No talar osteochondral lesion. [id number] muscle atrophy. No measurable tendon tear or tendon retraction. No evidence of vascular injury. CT/CT lower leg RT w IV con IMPRESSION: RIGHT LOWER LE. Circumferential subcutaneous edema within the lower leg, most prominent laterally. No organized fluid collection or peripherally enhancing fluid collection to suggest abscess formation. No obvious soft tissue ulceration. 2. Diffuse midfoot collapse with plantar subluxation of the talus as well as multiple fragments and bony remodeling involving the navicula and cuneiforms as seen on the prior radiographs. Findings may be related to Charcot arthropathy. A superimposed infectious process/osteomyelitis cannot be excluded on CT examination. LEFT LOWER LE. Circumferential subcutaneous edema, most prominent laterally. Focal soft tissue ulceration/subcutaneous air along the lateral aspect of the posterior calcaneus. Findings are consistent with acute cellulitis. No organized fluid collection or peripherally enhancing fluid collection to suggest abscess formation. No significant adjacent periosteal reaction or cortical erosion to suggest calcaneal osteomyelitis. 2. Moderate osteoarthritis within the midfoot.
--- NOTE | ~2022-11-11 | XR_ITS ---
EXAMINATION: XR SHOULDER, RIGHT CLINICAL INFORMATION: Right shoulder pain. COMPARISON: None TECHNIQUE: AP external rotation, Grashey, scapular Y, and axillary views of the right shoulder. FINDINGS: Mild right shoulder degenerative joint changes are seen. There is no acute fracture or dislocation. The visualized right ribs are intact. The soft tissues are unremarkable. XR/XR shoulder RT min 2V IMPRESSION: Mild right shoulder degenerative changes. No acute fracture.
--- NOTE | ~2022-11-11 | XR_ITS ---
EXAMINATION: XR ANKLE, RIGHT CLINICAL INFORMATION: Question osteomyelitis COMPARISON: None TECHNIQUE: AP, lateral, and mortise views of the right ankle. FINDINGS: Articular alignment at the ankle appears anatomic. There is hindfoot and midfoot collapse, and detailed evaluation of tarsal bones in this region to assess for osteomyelitis is limited. Surrounding hypertrophic osteophyte formation is suspected. Small posterior and plantar calcaneal spurs. Soft tissue swelling is present along the ankle and foot. XR/XR ankle RT 2V IMPRESSION: Hindfoot and midfoot collapse, and detailed evaluation of tarsal bones in this region to assess for osteomyelitis is limited. Surrounding soft tissue swelling is suspected. If clinically warranted, this may be better assessed with MRI.
--- NOTE | ~2022-11-11 | XR_ITS ---
EXAMINATION: XR ANKLE, LEFT CLINICAL INFORMATION: Question osteomyelitis COMPARISON: 02/19/2022 foot radiographs TECHNIQUE: AP, lateral, and mortise views of the left ankle. FINDINGS: Alignment across the ankle appears anatomic. No acute fracture is seen. Surrounding soft tissue swelling is noted. No focal osseous abnormality is seen to suggest osteomyelitis. Posterior and plantar calcaneal spur is noted. Vascular calcification is present along the plantar foot. XR/XR ankle LT 2V IMPRESSION: No acute osseous findings identified. Soft tissue swelling about the ankle.
--- NOTE | ~2022-11-11 | XR_ITS ---
EXAMINATION: XR CHEST CLINICAL INFORMATION: Fever, rule out pneumonia COMPARISON: 11/14/2021 TECHNIQUE: Frontal view of the chest was obtained. FINDINGS: Lung volumes are symmetric. No focal consolidation is seen. No evidence of pneumothorax, pleural effusion, or pulmonary edema. The cardiomediastinal contour is unremarkable. Healed left clavicular fracture is noted. XR/XR chest 1V IMPRESSION: No acute cardiopulmonary findings.
[2022-11-11 20:26] VITALS: BP 161/77; BP 186/94; PULSE 116; PULSE 120; RESP 20; TEMP 38.3; O2SAT 95; O2SAT 96; BMI 32.5
[2022-11-11 20:38] LABS: Glucose, Whole Blood 438 mg/dL (60-115)
--- NOTE | 2022-11-11 20:49 | ED.FEVER ---
HPI - Fever General Chief Complaint: Extremity Injury, Lower Stated Complaint: Foot Ulcer Time Seen by Provider: 11/11/22 20:38 Source: patient Mode of arrival: EMS Limitations: no limitations History of Present Illness HPI Narrative: 67-year-old male who presents emergency department for evaluation of fever, chills, fatigue, nausea, vomiting, diarrhea and pain, swelling and erythema to the right lower extremity. Patient states that both of his legs have been swollen over the past 3 days however his right lower extremity has become red and hot. The patient does have a history of diabetes and he states that his glucose has been in the 400 range over the past several days. The patient does have ulcers on his left foot and he states he saw event marketing assistant yesterday bandaged his foot. He states he has had a decreased appetite but he has been drinking fluids. The patient was brought to emergency department by ambulance. The patient is in a methadone program. He states that he uses IV heroin, 2 bags, 3 day I did review the hospitalist notes, the patient was admitted from 10/13/2021 until 10/22/2021 (Last year) for diabetic foot ulcer of the right great toe with osteomyelitis, he was treated with Zosyn and ertipenum for a35 day course. Related Data Home Medications Medication Instructions Recorded Confirmed atorvastatin 20 mg tablet 1 tab PO DAILY 10/13/21 10/13/21 gabapentin 300 mg capsule 1 cap PO TID 10/13/21 10/13/21 insulin aspart U-100 100 unit/mL 12 unit subcut TIDWM 10/13/21 10/13/21 (3 mL) subcutaneous pen (Novolog FlexPen U-100 Insulin aspart) insulin detemir U-100 100 unit/mL 60 unit subcut BID 10/13/21 10/13/21 subcutaneous solution (Levemir U-100 Insulin) lisinopril 30 mg tablet 1 tab PO DAILY 10/13/21 10/13/21 metoprolol succinate 50 mg 75 mg PO DAILY 10/13/21 10/13/21 tablet,extended release 24 hr methadone 10 mg/mL oral concentrate 38 mg PO DAILY 10/16/21 10/16/21 Previous Rx's Medication Instructions Recorded cyanocobalamin (vitamin B-12) See Rx Instructions .Route 10/19/21 1,000 mcg/mL injection solution .COMPLEX #10 mL ertapenem 1 gram solution for 1 g IV DAILY #36 ea 10/19/21 injection ferrous sulfate 324 mg (65 mg 324 mg PO DAILY #30 tabs 10/19/21 iron) tablet,delayed release doxycycline hyclate 100 mg capsule 100 mg PO BID 30 days #60 caps 11/16/21 Allergies Allergy/AdvReac Type Severity Reaction Status Date / Time No Known Allergies Allergy Verified 11/11/22 20:43 [No Known Allergies*] Review of Systems Review of Systems: Yes all other systems are reviewed and are negative [facility] Past Medical History [facility] Narrative: Past medical history: hypertension, hyperlipidemia, diabetes, neuropathy, diabetic foot ulcer, right great toe osteomyelitis, Charcot Veronica right foot , coronary artery disease. social history: The patient lives with his mother. He denies tobacco and alcohol use. He does admit to using heroin, 2 bags IV 3 days prior. He states that he is in a methadone program. Medical History B12 deficiency anemia Social History Social History Household Members: Family Housing: House Do you presently have visiting nurse or other home services: No Patient Tobacco Use Status: Never used Tobacco Advance Directives: No Advance Directives Information Provided: No service: No Current occupational status: disabled Physical Exam Vital Signs: Vital Signs: Last Vital Signs Temp 99.4 F 11/11/22 23:25 Pulse 100 11/11/22 23:25 Resp 21 H 11/11/22 23:25 BP 106/64 11/11/22 23:25 Pulse Ox 91 L 11/11/22 23:25 O2 Del Method 11/11/22 23:25 BMI result Body Mass Index 32.5 Const: Other: Awake, alert, male, pleasant, cooperative, diaphoretic, does not appear to be in distress HEENT: Head: Yes normal to inspection, Yes normocephalic and Yes atraumatic Ears: external ears normal General nose exam: Normal external nose present Face and sinus: Yes normal facial exam Mouth: Normal oral and palatal mucosa present Throat: Yes posterior oropharynx normal Eyes: General: appearance normal, both eyes and all related structures Pupils: Equal, round and reactive pupils present Neck: Neck: Yes normal visual inspection, Yes no lymphadenopathy, Yes trachea midline and Yes supple Chest: Chest palpation & inspection: normal inspection of the chest and normal palpation of entire chest wall Resp: Effort & Inspection: normal respiratory effort and able to speak in complete sentences Auscultation: clear to auscultation bilaterally Cardio: Rate: regular rate Rhythm: regular rhythm Heart sounds: S1 normal heart sound present, S2 normal heart sound present and no murmurs GI: Inspection: Yes normal to inspection Palpation (GI): Soft to palpation, nontender and no guarding Auscultation: normal bowel sounds : General: Yes no CVA tenderness Back/Spine/Pelvis: Back: no CVA tenderness Skin: General skin exam: no rashes or lesions noted Neuro: Cranial nerves: Yes CN's II-XII intact bilaterally and Yes Equal, round and reactive pupils present Cognition (Neuro): normal cognition Motor exam (neuro): 5/5 motor strength present throughout Extrem: Other: the patient has bilateral trace to 1+ pitting edema which is symmetric, the patient's right lower extremity has erythema from the foot extending 2/[address] up the leg, the erythema is warm to the touch. The patient has a ulcer to his left heel with purulent, foul-smelling discharge. there is also a larger ulcer to the left lateral heel area with purulent, foul-smelling discharge as well. Psych: Appearance: grossly normal Speech and movement: Normal speech and movement present Affect: normal affect Attitude: cooperative Medications Administered Discontinued Medications Generic Name Dose Route Start Last Admin Trade Name Freq PRN Reason Stop Dose Admin Sodium Chloride 2,673 mls @ 2,673 mls/hr 11/11/22 20:50 11/11/22 22:49 Ns IV 11/11/22 21:49 Infused .Q1H STA Infusion Piperacillin Sod/Tazobactam 100 mls @ 200 mls/hr 11/11/22 20:57 11/11/22 21:55 Sod 4.5 gm/ Sodium Chloride IV 11/11/22 21:26 Infused ONCE STA Infusion Vancomycin HCl 2,000 mg in 520 mls @ 260 mls/hr 11/11/22 21:03 11/11/22 23:26 Vancomycin/Ns IV 11/11/22 23:02 Infused ONCE ONE Infusion Medical Decision Making Medical Decision Making MDM Narrative: 67-year-old male with a history of diabetes who presents emergency department for evaluation of 3-4 days of right lower extremity swelling, subjective fever and chills, decreased appetite, fatigue and elevated glucose. Vital signs did reveal an elevated blood pressure of 161/77 with an elevated pulse of 116 and a fever of 101 degrees F. O2 saturation was 95% on room air. the patient does have evidence for cellulitis of the right lower extremity from the foot and extends distally 2/3 upset yung. Plan: Lab: CBC, CMP, lactic acid, lipase, PT /INR, PTT, blood cultures x2, ESR, CRP, COVID-19, influenza, urine drug screen. Treatment: Normal saline 30 cc/kilogram bolus, Zosyn 4.5 g IV, vancomycin 2000 mg IV, 0019: Laboratory evaluation did reveal an elevated BUN creatinine of 46 and 1.0 with an elevated glucose of 404. Lactic acid was normal at 2.0. CRP elevated 29.34. ESR elevated 95. COVID-19 and influenza were negative. I will discuss admission with the covering hospitalist. Differential Diagnosis Differential diagnosis includes was not limited to diabetic ketoacidosis, dehydration, electrolyte abnormality, cellulitis, osteomyelitis, infected diabetic ulcers Consult Healthcare Provider Management of the patient was discussed with: Hospitalist Lab Data MDM Lab Attestation statement: I reviewed the patient's lab results. laboratory evaluation revealed chronic anemia with an H&H of 9.3 and 27.8. Normal WBC 65533. Elevated BUN creatinine 461.0. Elevated glucose 404. CRP elevated 29.34. ESR elevated 95. COVID-19 negative. Influenza negative. 11/11/22 21:02 11/11/22 21:02 Labs: Lab Results 11/11/22 11/11/22 11/11/22 Range/Units 20:34 21:02 21:02 WBC 10.8 (4.8-10.8) X10*3/uL RBC 3.26 L (4.60-5.80) X10*6/uL Hgb 9.3 L (14.0-18.0) g/dl Hct 27.8 L (42.0-52.0) % MCV 85.3 (80.0-98.0) fL MCH 28.5 (27.0-33.0) pg MCHC 33.5 (31.0-36.0) g/dl RDW 13.3 (11.0-16.0) % Plt Count 169 (160-400) X10*3/uL MPV 10.5 (9.4-12.4) fL Immature Gran % (Auto) 0.8 H (0.0-0.4) % Neut % (Auto) 80.2 H (45-73) % Lymph % (Auto) 12.4 L (20-40) % [place] % (Auto) 6.3 (2-11) % Eos % (Auto) 0.1 (0-4) % Baso % (Auto) 0.2 (0-2) % Lymph # (Auto) 1.3 (1.2-4.9) X10*3/uL [place] # (Auto) 0.7 (0.1-1.2) X10*3/uL Eos # (Auto) 0.0 (0.0-0.4) X10*3/uL Baso # (Auto) 0.0 (0.0-0.2) X10*3/uL Abs Immat Gran (auto) 0.09 H (0.00-0.03) X10*3/uL Absolute Neuts (auto) 8.7 H (2.0-8.3) x10*3/uL Absolute Nucleated RBC 0.000 (0.0-0.012) X10*3/uL Nucleated RBC % (auto) 0.0 (0.0-0.2) /100WBC ESR 95 H (0-15) MM/HR PT (10.0-13.1) SEC INR (0.9-1.1) APTT (26.0-36.4) SEC Sodium (135-145) mmol/L Potassium (3.3-5.1) mmol/L Chloride (96-108) mmol/L Carbon Dioxide (22-29) mmol/L Anion Gap (12-20) BUN (9-16) mg/dL Creatinine (0.5-1.4) mg/dL Estim Creat Clear Calc Estimated GFR POC Glucose 438 H* (60-115) mg/dL Random Glucose (60-115) mg/dL Lactic Acid (0.5-2.0) mmol/L Calcium (8.4-10.2) mg/dL Total Bilirubin (0.0-1.0) mg/dL AST (5-37) U/L ALT (0-40) U/L Alkaline Phosphatase (39-117) U/L C-Reactive Protein (< or = 0.50) mg/dL Total Protein (6.5-8.0) g/dL Albumin (3.5-5.0) g/dL Lipase (8-78) U/L Urine Color Urine Appearance Urine pH (5.0-9.0) Ur Specific [place] (1.005-1.025) Urine Protein (Neg-Trace) mg/dL Urine Glucose (UA) (Negative) mg/dL Urine Ketones (Negative) mg/dL Urine Blood (Negative) Urine Nitrite (Negative) Ur Leukocyte Esterase (Negative) Urine RBC (0-2) /HPF Urine WBC (0-5) /HPF Ur Squamous Epith Cells (0-2) /HPF Urine Bacteria (None Seen) Hyaline Casts (0-2) /LPF Salicylates (15-30) mg/dL Urine Opiates Screen (Not Detect) Urine Fentanyl Screen (Not Detect) Ur Barbiturates Screen (Not Detect) Ur Phencyclidine Scrn (Not Detect) Ur Amphetamines Screen (Not Detect) U Benzodiazepines Scrn (Not Detect) Urine Cocaine Screen (Not Detect) U Marijuana (THC) Screen (Not Detect) COVID-19 (KATHI) (Negative) COVID-19 Clin Com Influenza Type A (EMANUEL) (Negative) Influenza Type B (EMANUEL) (Negative) Influenza A & B Note 11/11/22 11/11/22 11/11/22 Range/Units 21:19 21:21 21:21 WBC (4.8-10.8) X10*3/uL RBC (4.60-5.80) X10*6/uL Hgb (14.0-18.0) g/dl Hct (42.0-52.0) % MCV (80.0-98.0) fL MCH (27.0-33.0) pg MCHC (31.0-36.0) g/dl RDW (11.0-16.0) % Plt Count (160-400) X10*3/uL MPV (9.4-12.4) fL Immature Gran % (Auto) (0.0-0.4) % Neut % (Auto) (45-73) % Lymph % (Auto) (20-40) % [place] % (Auto) (2-11) % Eos % (Auto) (0-4) % Baso % (Auto) (0-2) % Lymph # (Auto) (1.2-4.9) X10*3/uL [place] # (Auto) (0.1-1.2) X10*3/uL Eos # (Auto) (0.0-0.4) X10*3/uL Baso # (Auto) (0.0-0.2) X10*3/uL Abs Immat Gran (auto) (0.00-0.03) X10*3/uL Absolute Neuts (auto) (2.0-8.3) x10*3/uL Absolute Nucleated RBC (0.0-0.012) X10*3/uL Nucleated RBC % (auto) (0.0-0.2) /100WBC ESR (0-15) MM/HR PT (10.0-13.1) SEC INR (0.9-1.1) APTT (26.0-36.4) SEC Sodium (135-145) mmol/L Potassium (3.3-5.1) mmol/L Chloride (96-108) mmol/L Carbon Dioxide (22-29) mmol/L Anion Gap (12-20) BUN (9-16) mg/dL Creatinine (0.5-1.4) mg/dL Estim Creat Clear Calc Estimated GFR POC Glucose (60-115) mg/dL Random Glucose (60-115) mg/dL Lactic Acid 2.0 (0.5-2.0) mmol/L Calcium (8.4-10.2) mg/dL Total Bilirubin (0.0-1.0) mg/dL AST (5-37) U/L ALT (0-40) U/L Alkaline Phosphatase (39-117) U/L C-Reactive Protein (< or = 0.50) mg/dL Total Protein (6.5-8.0) g/dL Albumin (3.5-5.0) g/dL Lipase (8-78) U/L Urine Color Urine Appearance Urine pH (5.0-9.0) Ur Specific [place] (1.005-1.025) Urine Protein (Neg-Trace) mg/dL Urine Glucose (UA) (Negative) mg/dL Urine Ketones (Negative) mg/dL Urine Blood (Negative) Urine Nitrite (Negative) Ur Leukocyte Esterase (Negative) Urine RBC (0-2) /HPF Urine WBC (0-5) /HPF Ur Squamous Epith Cells (0-2) /HPF Urine Bacteria (None Seen) Hyaline Casts (0-2) /LPF Salicylates (15-30) mg/dL Urine Opiates Screen (Not Detect) Urine Fentanyl Screen (Not Detect) Ur Barbiturates Screen (Not Detect) Ur Phencyclidine Scrn (Not Detect) Ur Amphetamines Screen (Not Detect) U Benzodiazepines Scrn (Not Detect) Urine Cocaine Screen (Not Detect) U Marijuana (THC) Screen (Not Detect) COVID-19 (KATHI) Negative (Negative) COVID-19 Clin Com See Note Influenza Type A (EMANUEL) Negative (Negative) Influenza Type B (EMANUEL) Negative (Negative) Influenza A & B Note See Note 11/11/22 11/11/22 11/11/22 Range/Units 22:05 22:05 22:29 WBC (4.8-10.8) X10*3/uL RBC (4.60-5.80) X10*6/uL Hgb (14.0-18.0) g/dl Hct (42.0-52.0) % MCV (80.0-98.0) fL MCH (27.0-33.0) pg MCHC (31.0-36.0) g/dl RDW (11.0-16.0) % Plt Count (160-400) X10*3/uL MPV (9.4-12.4) fL Immature Gran % (Auto) (0.0-0.4) % Neut % (Auto) (45-73) % Lymph % (Auto) (20-40) % [place] % (Auto) (2-11) % Eos % (Auto) (0-4) % Baso % (Auto) (0-2) % Lymph # (Auto) (1.2-4.9) X10*3/uL [place] # (Auto) (0.1-1.2) X10*3/uL Eos # (Auto) (0.0-0.4) X10*3/uL Baso # (Auto) (0.0-0.2) X10*3/uL Abs Immat Gran (auto) (0.00-0.03) X10*3/uL Absolute Neuts (auto) (2.0-8.3) x10*3/uL Absolute Nucleated RBC (0.0-0.012) X10*3/uL Nucleated RBC % (auto) (0.0-0.2) /100WBC ESR (0-15) MM/HR PT 14.3 H (10.0-13.1) SEC INR 1.2 H (0.9-1.1) APTT 28.3 (26.0-36.4) SEC Sodium (135-145) mmol/L Potassium (3.3-5.1) mmol/L Chloride (96-108) mmol/L Carbon Dioxide (22-29) mmol/L Anion Gap (12-20) BUN (9-16) mg/dL Creatinine (0.5-1.4) mg/dL Estim Creat Clear Calc Estimated GFR POC Glucose (60-115) mg/dL Random Glucose (60-115) mg/dL Lactic Acid (0.5-2.0) mmol/L Calcium (8.4-10.2) mg/dL Total Bilirubin (0.0-1.0) mg/dL AST (5-37) U/L ALT (0-40) U/L Alkaline Phosphatase (39-117) U/L C-Reactive Protein (< or = 0.50) mg/dL Total Protein (6.5-8.0) g/dL Albumin (3.5-5.0) g/dL Lipase (8-78) U/L Urine Color Yellow Urine Appearance Clear Urine pH 5.5 (5.0-9.0) Ur Specific [place] 1.020 (1.005-1.025) Urine Protein 30 (1+) H (Neg-Trace) mg/dL Urine Glucose (UA) >=1000 H (Negative) mg/dL Urine Ketones Negative (Negative) mg/dL Urine Blood Negative (Negative) Urine Nitrite Negative (Negative) Ur Leukocyte Esterase Negative (Negative) Urine RBC 0-2 (0-2) /HPF Urine WBC 0-5 (0-5) /HPF Ur Squamous Epith Cells 0-2 (0-2) /HPF Urine Bacteria None Seen (None Seen) Hyaline Casts 0-2 (0-2) /LPF Salicylates (15-30) mg/dL Urine Opiates Screen Not Detected (Not Detect) Urine Fentanyl Screen POSITIVE H (Not Detect) Ur Barbiturates Screen Not Detected (Not Detect) Ur Phencyclidine Scrn Not Detected (Not Detect) Ur Amphetamines Screen Not Detected (Not Detect) U Benzodiazepines Scrn Not Detected (Not Detect) Urine Cocaine Screen POSITIVE H (Not Detect) U Marijuana (THC) Screen Not Detected (Not Detect) COVID-19 (KATHI) (Negative) COVID-19 Clin Com Influenza Type A (EMANUEL) (Negative) Influenza Type B (EMANUEL) (Negative) Influenza A & B Note 11/11/22 Range/Units 22:29 WBC (4.8-10.8) X10*3/uL RBC (4.60-5.80) X10*6/uL Hgb (14.0-18.0) g/dl Hct (42.0-52.0) % MCV (80.0-98.0) fL MCH (27.0-33.0) pg MCHC (31.0-36.0) g/dl RDW (11.0-16.0) % Plt Count (160-400) X10*3/uL MPV (9.4-12.4) fL Immature Gran % (Auto) (0.0-0.4) % Neut % (Auto) (45-73) % Lymph % (Auto) (20-40) % [place] % (Auto) (2-11) % Eos % (Auto) (0-4) % Baso % (Auto) (0-2) % Lymph # (Auto) (1.2-4.9) X10*3/uL [place] # (Auto) (0.1-1.2) X10*3/uL Eos # (Auto) (0.0-0.4) X10*3/uL Baso # (Auto) (0.0-0.2) X10*3/uL Abs Immat Gran (auto) (0.00-0.03) X10*3/uL Absolute Neuts (auto) (2.0-8.3) x10*3/uL Absolute Nucleated RBC (0.0-0.012) X10*3/uL Nucleated RBC % (auto) (0.0-0.2) /100WBC ESR (0-15) MM/HR PT (10.0-13.1) SEC INR (0.9-1.1) APTT (26.0-36.4) SEC Sodium 133 L (135-145) mmol/L Potassium 3.6 D (3.3-5.1) mmol/L Chloride 99 (96-108) mmol/L Carbon Dioxide 26 (22-29) mmol/L Anion Gap 12 (12-20) BUN 46 H (9-16) mg/dL Creatinine 1.08 (0.5-1.4) mg/dL Estim Creat Clear Calc 98.3 Estimated GFR > 60 POC Glucose (60-115) mg/dL Random Glucose 404 H* (60-115) mg/dL Lactic Acid (0.5-2.0) mmol/L Calcium 7.6 L D (8.4-10.2) mg/dL Total Bilirubin 1.4 H (0.0-1.0) mg/dL AST 34 (5-37) U/L ALT 30 (0-40) U/L Alkaline Phosphatase 77 (39-117) U/L C-Reactive Protein 29.34 H (< or = 0.50) mg/dL Total Protein 5.7 L (6.5-8.0) g/dL Albumin 2.3 L (3.5-5.0) g/dL Lipase 11 (8-78) U/L Urine Color Urine Appearance Urine pH (5.0-9.0) Ur Specific [place] (1.005-1.025) Urine Protein (Neg-Trace) mg/dL Urine Glucose (UA) (Negative) mg/dL Urine Ketones (Negative) mg/dL Urine Blood (Negative) Urine Nitrite (Negative) Ur Leukocyte Esterase (Negative) Urine RBC (0-2) /HPF Urine WBC (0-5) /HPF Ur Squamous Epith Cells (0-2) /HPF Urine Bacteria (None Seen) Hyaline Casts (0-2) /LPF Salicylates < 5.0 L (15-30) mg/dL Urine Opiates Screen (Not Detect) Urine Fentanyl Screen (Not Detect) Ur Barbiturates Screen (Not Detect) Ur Phencyclidine Scrn (Not Detect) Ur Amphetamines Screen (Not Detect) U Benzodiazepines Scrn (Not Detect) Urine Cocaine Screen (Not Detect) U Marijuana (THC) Screen (Not Detect) COVID-19 (KATHI) (Negative) COVID-19 Clin Com Influenza Type A (EMANUEL) (Negative) Influenza Type B (EMANUEL) (Negative) Influenza A & B Note Discharge Plan Discharge Prescriptions: No Action doxycycline hyclate 100 mg capsule 100 mg PO BID 30 Days Qty: 60 1RF atorvastatin 20 mg tablet 1 tab PO DAILY metoprolol succinate 50 mg tablet extended release 24 hr 75 mg PO DAILY lisinopril 30 mg tablet 1 tab PO DAILY gabapentin 300 mg capsule 1 cap PO TID insulin aspart U-100 [Novolog FlexPen U-100 Insulin] 100 unit/mL (3 mL) insulin pen 12 unit subcut TIDWM Levemir U-100 Insulin 100 unit/mL solution 60 unit subcut BID methadone 10 mg/mL Concentrate 38 mg PO DAILY ferrous sulfate 324 mg (65 mg iron) Tablet,Delayed Release (Dr/Ec) 324 mg PO DAILY Qty: 30 0RF cyanocobalamin (vitamin B-12) 1,000 mcg/mL Solution See Rx Instructions .ROUTE .COMPLEX Qty: 10 0RF Rx Instructions: 1,000 mcg intramuscularly weekly x 4 weeks, then 1000 mcg monthly ertapenem 1 gram recon soln 1 g IV DAILY Qty: 36 0RF Rx Instructions: daily until 11/25/21
[2022-11-11] MEDS: 0.9 % Sodium Chloride 2,673 ML 2673 ML IV (21:13)
[2022-11-11 21:18] LABS: MANUAL DIFF FLAG NO
[2022-11-11 21:19] LABS: Basophils Percent Auto 0.2 % (0-2); Eosinophils Percent Auto 0.1 % (0-4); Hematocrit 27.8 % (42.0-52.0); Hemoglobin 9.3 g/dl (14.0-18.0); Imm Gran Abs Auto 0.09 X10*3/uL (0.00-0.03); Imm Gran Pct Auto 0.8 % (0.0-0.4); Lymphocytes Absolute Auto 1.3 X10*3/uL (1.2-4.9); Lymphocytes Percent Auto 12.4 % (20-40); Mean Corpuscular HGB Conc 33.5 g/dl (31.0-36.0); Mean Corpuscular Hemoglobin 28.5 pg (27.0-33.0); Mean Corpuscular Volume 85.3 fL (80.0-98.0); Mean Platelet Volume 10.5 fL (9.4-12.4); Monocytes Absolute Auto 0.7 X10*3/uL (0.1-1.2); Monocytes Percent Auto 6.3 % (2-11); Neutrophils Absolute Auto 8.7 x10*3/uL (2.0-8.3); Neutrophils Percent Auto 80.2 % (45-73); Platelet Count 169 X10*3/uL (160-400); Red Blood Count 3.26 X10*6/uL (4.60-5.80); Red Cell Distribution Width 13.3 % (11.0-16.0); White Blood Count 10.8 X10*3/uL (4.8-10.8)
[2022-11-11] MEDS: Piperacillin Sodium/Tazobactam 4.5 GM in 0.9 % Sodium Chloride 100 ML IV (21:25)
--- NOTE | 2022-11-11 21:34 | PC.NURSE ---
Pt alert and oriented.Sepsis protocol called. Pt medicated per NOV.
[2022-11-11 21:52] LABS: COVID-19 Test Negative (Negative); IDNOW Serial# 6674DD1D
[2022-11-11 21:53] LABS: IDNOW Serial# 55D5AD1C; Influenza A Negative (Negative); Influenza B2 Negative (Negative)
[2022-11-11 21:58] VITALS: BP 141/62; PULSE 102; RESP 21; TEMP 37.8; O2SAT 98
[2022-11-11 22:21] LABS: Appearance Urine Clear; Color Urine Yellow; Glucose Urine UA >=1000 mg/dL (Negative); Leukocyte Esterase Urine Negative (Negative); Nitrite Urine Negative (Negative); PH 5.5 (5.0-9.0); UMIC TRIGGER UACC YES; Urine Blood Negative (Negative); Urine Ketones Negative (Negative); Urine Protein 30 (1+) mg/dL (Neg-Trace)
[2022-11-11 22:42] LABS: INTERNATIONAL NORM RATIO 1.2 (0.9-1.1); Prothrombin Time 14.3 SEC (10.0-13.1)
[2022-11-11 22:45] LABS: Partial Thromboplastin Time 28.3 SEC (26.0-36.4)
[2022-11-11 22:47] LABS: Amphetamine Screen Urine Not Detected (Not Detect); Barbiturates, Urine Not Detected (Not Detect); Benzodiazepines Screen Urine Not Detected (Not Detect); Cannabinoid Screen Urine Not Detected (Not Detect); Cocaine Screen Urine POSITIVE (Not Detect); Fentanyl, urine POSITIVE (Not Detect); Opiate Screen Urine Not Detected (Not Detect); Phencyclidine Screen Urine Not Detected (Not Detect)
[2022-11-11 22:48] VITALS: BP 117/69; PULSE 100; RESP 18; TEMP 36.8; O2SAT 97
[2022-11-11 23:00] LABS: Bacteria Urine None Seen (None Seen); Hyaline Casts Urine 0-2 /LPF (0-2); RBC Urine 0-2 /HPF (0-2); Squamous Epithelial Cell Urine 0-2 /HPF (0-2); WBC Urine 0-5 /HPF (0-5)
[2022-11-11 23:03] LABS: Erythrocyte Sedimentation Rate 95 MM/HR (0-15)
--- NOTE | 2022-11-11 23:03 | PC.NURSE ---
Fluids completed at 2249. VS stable pt is afebrile. Pt is MEDRANO x 3.
[2022-11-11 23:04] LABS: Blood Urea Nitrogen 46 mg/dL (9-16)
[2022-11-11 23:05] LABS: Alanine Aminotransferase 30 U/L (0-40); Albumin Level 2.3 g/dL (3.5-5.0); Alkaline Phosphatase 77 U/L (39-117); Anion Gap 12 (12-20); Aspartate Amino Transferase 34 U/L (5-37); Bilirubin Total 1.4 mg/dL (0.0-1.0); C Reactive Protein 29.34 mg/dL (< or = 0.50); Calcium 7.6 mg/dL (8.4-10.2); Carbon Dioxide 26 mmol/L (22-29); Chloride 99 mmol/L (96-108); Creatinine Clr Calc Pharmacy 98.3; Estimated Glomerular Filt Rate > 60; Glucose Random 404 mg/dL (60-115); Lipase 11 U/L (8-78); Potassium 3.6 mmol/L (3.3-5.1); Salicylate < 5.0 mg/dL (15-30); Sodium 133 mmol/L (135-145); Total Protein 5.7 g/dL (6.5-8.0)
[2022-11-11 23:19] VITALS: BP 121/65; PULSE 101; RESP 21; TEMP 37.6; O2SAT 93
[2022-11-11 23:25] VITALS: BP 106/64; PULSE 100; RESP 21; TEMP 37.4; O2SAT 91
--- NOTE | 2022-11-11 23:59 | PC.NURSE ---
Dr. Dillard notified pt blood sugar is 404.
--- NOTE | 2022-11-12 00:30 | P.HPHOSP_ITS ---
History of Present Illness Date of Service: 11/12/22 Chief Complaint: Fever This is a 67-year-old female with pertinent history of insulin-dependent diabetes mellitus, opioid and cocaine use disorder, history of diabetic foot ulcer with osteomyelitis, essential hypertension presents to the emergency department evaluation of fevers and chills. Patient states his right lower extremity has been swollen, red and painful over the last 3-4 days. Patient also reports purulent discharge from his left lower extremity ulcer. States his blood glucose has been uncontrolled and it has been running in the 400s over the last few days. Patient also reports generalized malaise and decreased p.o. intake. Does endorse using IV heroin. Patient denies chest discomfort, palpitations, shortness of breath, abdominal pain, changes in urinary or bowel habits. In the emergency department, patient was found to be septic. UDS positive for cocaine and fentanyl. [facility] Medical History B12 deficiency anemia Diabetes mellitus Hypertension Substance use disorder Pertinent family history: Doesnot know Social History Household Members: Family Housing: House Do you presently have visiting nurse or other home services: No Patient Tobacco Use Status: Never used Tobacco Advance Directives: No Advance Directives Information Provided: No service: No Current occupational status: disabled Meds Allergies Allergy/AdvReac Type Severity Reaction Status Date / Time No Known Allergies Allergy Verified 11/11/22 20:43 [No Known Allergies*] Active Medications: Current Medications Dextrose (Dextrose 50 % 25 Gm/50 Ml Syringe) 25 gm IVPUSH Q15M PRN; Protocol PRN Reason: per Hypoglycemia Standing Ord. Glucose (Glucose Gel 15 Gm Gel..Gram.) 15 gm PO Q15M PRN; Protocol PRN Reason: per Hypoglycemia Standing Ord. Insulin Glargine (Insulin Glargine,Hum.Rec.Anlog 100 Unit/Ml 10 Ml Vial) 45 unit SUBCUT ONCE ONE Stop: 11/12/22 00:27 Insulin Human Lispro (Insulin Lispro 100 Unit/Ml 3 Ml Vial) 0 unit SUBCUT [facility]; Protocol Insulin Human Regular (Insulin Regular, Human 100 Unit/Ml 3 Ml Vial) 5 unit IVPUSH ONCE ONE Stop: 11/12/22 00:27 Pharmacy Consult (Consult Rx Perform Med Rec) 1 each MISCELLANE ONCE PRN PRN Reason: Consult order Home Medications Medication Instructions Recorded Confirmed Last Taken Type atorvastatin 20 mg tablet 1 tab PO DAILY 10/13/21 10/13/21 10/12/21 History gabapentin 300 mg capsule 1 cap PO TID 10/13/21 10/13/21 10/13/21 History insulin aspart U-100 100 unit/mL 12 unit subcut TIDWM 10/13/21 10/13/21 10/13/21 History (3 mL) subcutaneous pen (Novolog FlexPen U-100 Insulin aspart) insulin detemir U-100 100 unit/mL 60 unit subcut BID 10/13/21 10/13/21 10/13/21 History subcutaneous solution (Levemir U-100 Insulin) lisinopril 30 mg tablet 1 tab PO DAILY 10/13/21 10/13/21 10/13/21 History metoprolol succinate 50 mg 75 mg PO DAILY 10/13/21 10/13/21 10/13/21 History tablet,extended release 24 hr methadone 10 mg/mL oral concentrate 38 mg PO DAILY 10/16/21 10/16/21 Unknown History Physical Exam Vital Signs and Narrative: Vital Signs: Last Vital Signs Temp 99.4 F 11/11/22 23:25 Pulse 100 11/11/22 23:25 Resp 21 H 11/11/22 23:25 BP 106/64 11/11/22 23:25 Pulse Ox 91 L 11/11/22 23:25 O2 Del Method 11/11/22 23:25 BMI result Body Mass Index 32.5 Middle-aged male lying in bed in no distress Neck supple, no JVD Regular rate and rhythm, S1-S2 heard Regular breath sounds bilaterally, no wheezing or crackles appreciated Abdomen soft nontender, no guarding, no rigidity Patient is awake, alert and oriented to self, place, time and person ; no focal motor deficit Bilateral lower extremity with venous stasis changes, right lower extremity erythematous, warm and tender with limited motion at right ankle, left lower extremity with purulent drainage of the ulcer Psych: Normal mood Results Labs 11/11/22 21:02 11/11/22 22:29 Labs: Laboratory Results - last 24 hr 03/04/23 03/04/23 03/04/23 20:34 21:02 21:02 MCV 85.3 MCH 28.5 MCHC 33.5 RDW 13.3 Plt Count 169 MPV 10.5 Immature Gran % (Auto) 0.8 H Neut % (Auto) 80.2 H Lymph % (Auto) 12.4 L Mitchell % (Auto) 6.3 Eos % (Auto) 0.1 Baso % (Auto) 0.2 Lymph # (Auto) 1.3 Mitchell # (Auto) 0.7 Eos # (Auto) 0.0 Baso # (Auto) 0.0 Abs Immat Gran (auto) 0.09 H Absolute Neuts (auto) 8.7 H Absolute Nucleated RBC 0.000 Nucleated RBC % (auto) 0.0 ESR 95 H PT INR APTT Anion Gap Estim Creat Clear Calc Estimated GFR POC Glucose 438 H* Random Glucose Lactic Acid Calcium Total Bilirubin AST ALT Alkaline Phosphatase C-Reactive Protein Total Protein Albumin Lipase Urine Color Urine Appearance Urine pH Ur Specific [place] Urine Protein Urine Glucose (UA) Urine Ketones Urine Blood Urine Nitrite Ur Leukocyte Esterase Urine RBC Urine WBC Ur Squamous Epith Cells Urine Bacteria Hyaline Casts Salicylates Urine Opiates Screen Urine Fentanyl Screen Ur Barbiturates Screen Ur Phencyclidine Scrn Ur Amphetamines Screen U Benzodiazepines Scrn Urine Cocaine Screen U Marijuana (THC) Screen COVID-19 (KATHI) COVID-19 Clin Com Influenza Type A (EMANUEL) Influenza Type B (EMANUEL) Influenza A & B Note 11/11/22 11/11/22 11/11/22 21:19 21:21 21:21 MCV MCH MCHC RDW Plt Count MPV Immature Gran % (Auto) Neut % (Auto) Lymph % (Auto) Mitchell % (Auto) Eos % (Auto) Baso % (Auto) Lymph # (Auto) Mitchell # (Auto) Eos # (Auto) Baso # (Auto) Abs Immat Gran (auto) Absolute Neuts (auto) Absolute Nucleated RBC Nucleated RBC % (auto) ESR PT INR APTT Anion Gap Estim Creat Clear Calc Estimated GFR POC Glucose Random Glucose Lactic Acid 2.0 Calcium Total Bilirubin AST ALT Alkaline Phosphatase C-Reactive Protein Total Protein Albumin Lipase Urine Color Urine Appearance Urine pH Ur Specific [place] Urine Protein Urine Glucose (UA) Urine Ketones Urine Blood Urine Nitrite Ur Leukocyte Esterase Urine RBC Urine WBC Ur Squamous Epith Cells Urine Bacteria Hyaline Casts Salicylates Urine Opiates Screen Urine Fentanyl Screen Ur Barbiturates Screen Ur Phencyclidine Scrn Ur Amphetamines Screen U Benzodiazepines Scrn Urine Cocaine Screen U Marijuana (THC) Screen COVID-19 (KATHI) Negative COVID-19 Clin Com See Note Influenza Type A (EMANUEL) Negative Influenza Type B (EMANUEL) Negative Influenza A & B Note See Note 11/11/22 11/11/22 11/11/22 22:05 22:05 22:29 MCV MCH MCHC RDW Plt Count MPV Immature Gran % (Auto) Neut % (Auto) Lymph % (Auto) Mitchell % (Auto) Eos % (Auto) Baso % (Auto) Lymph # (Auto) Mitchell # (Auto) Eos # (Auto) Baso # (Auto) Abs Immat Gran (auto) Absolute Neuts (auto) Absolute Nucleated RBC Nucleated RBC % (auto) ESR PT 14.3 H INR 1.2 H APTT 28.3 Anion Gap Estim Creat Clear Calc Estimated GFR POC Glucose Random Glucose Lactic Acid Calcium Total Bilirubin AST ALT Alkaline Phosphatase C-Reactive Protein Total Protein Albumin Lipase Urine Color Yellow Urine Appearance Clear Urine pH 5.5 Ur Specific [place] 1.020 Urine Protein 30 (1+) H Urine Glucose (UA) >=1000 H Urine Ketones Negative Urine Blood Negative Urine Nitrite Negative Ur Leukocyte Esterase Negative Urine RBC 0-2 Urine WBC 0-5 Ur Squamous Epith Cells 0-2 Urine Bacteria None Seen Hyaline Casts 0-2 Salicylates Urine Opiates Screen Not Detected Urine Fentanyl Screen POSITIVE H Ur Barbiturates Screen Not Detected Ur Phencyclidine Scrn Not Detected Ur Amphetamines Screen Not Detected U Benzodiazepines Scrn Not Detected Urine Cocaine Screen POSITIVE H U Marijuana (THC) Screen Not Detected COVID-19 (KATHI) COVID-19 Clin Com Influenza Type A (EMANUEL) Influenza Type B (EMANUEL) Influenza A & B Note 11/11/22 22:29 MCV MCH MCHC RDW Plt Count MPV Immature Gran % (Auto) Neut % (Auto) Lymph % (Auto) Mitchell % (Auto) Eos % (Auto) Baso % (Auto) Lymph # (Auto) Mitchell # (Auto) Eos # (Auto) Baso # (Auto) Abs Immat Gran (auto) Absolute Neuts (auto) Absolute Nucleated RBC Nucleated RBC % (auto) ESR PT INR APTT Anion Gap 12 Estim Creat Clear Calc 98.3 Estimated GFR > 60 POC Glucose Random Glucose 404 H* Lactic Acid Calcium 7.6 L D Total Bilirubin 1.4 H AST 34 ALT 30 Alkaline Phosphatase 77 C-Reactive Protein 29.34 H Total Protein 5.7 L Albumin 2.3 L Lipase 11 Urine Color Urine Appearance Urine pH Ur Specific [place] Urine Protein Urine Glucose (UA) Urine Ketones Urine Blood Urine Nitrite Ur Leukocyte Esterase Urine RBC Urine WBC Ur Squamous Epith Cells Urine Bacteria Hyaline Casts Salicylates < 5.0 L Urine Opiates Screen Urine Fentanyl Screen Ur Barbiturates Screen Ur Phencyclidine Scrn Ur Amphetamines Screen U Benzodiazepines Scrn Urine Cocaine Screen U Marijuana (THC) Screen COVID-19 (KATHI) COVID-19 Clin Com Influenza Type A (EMANUEL) Influenza Type B (EMANUEL) Influenza A & B Note Imaging Radiologist's Impressions: Impressions Chest X-Ray 11/11/22 21:37 IMPRESSION: No acute cardiopulmonary findings. Assessment and Plan (1) Diabetes mellitus: Status: Acute (2) Diabetic ulcer of left foot: Status: Acute (3) Cellulitis of right leg: Status: Acute Plan This is a 67-year-old female with pertinent history of insulin-dependent diabetes mellitus, opioid and cocaine use disorder, history of diabetic foot ulcer with osteomyelitis, essential hypertension presents to the emergency department evaluation of fevers and chills. #. Sepsis due to right lower extremity cellulitis and left lower extremity diabetic foot ulcer: Will admit patient and initiate empiric IV antibiotics. Blood culture and lactic acid obtained. Obtaining x-rays to rule out osteomyelitis #. Uncontrolled insulin-dependent diabetes mellitus with hyperglycemia: Initiating basal plus regimen. Obtaining A1c #. Cocaine and heroin use disorder: Consulted addiction team and CARE team #. Chronic normocytic anemia: Hemoglobin above transfusion threshold #. Essential hypertension: Hold home antihypertensives in the setting of sepsis Med rec pending DVT prophylaxis: Lovenox 40 mg daily Full code Diabetic diet Admit as inpatient and will require two night minimum hospital stay for IV a ntibiotics Time Spent With Patient Time: Total time managing care of this patient today ____ minutes. Quality Stroke Does the patient have a stroke diagnosis?: No VTE Prior VTE?: No VTE Risk Level:: Medical - moderate - high VTE Device Contraindication: Treatment Not Indicated VTE Drug Contraindication: N/A - Med Ordered
[2022-11-12 02:42] LABS: Glucose, Whole Blood 391 mg/dL (60-115)
[2022-11-12] MEDS: Insulin Glargine,Hum.rec.anlog 100 UNIT/ML 10 ML VIAL 45 UNIT SUBCUT (02:50)
[2022-11-12] MEDS: Enoxaparin Sodium 40 MG/0.4 ML SYRINGE SUBCUT (02:50)
[2022-11-12] MEDS: Insulin Regular, Human 100 UNIT/ML 3 ML VIAL IVPUSH ×2 (02:52→06:39)
[2022-11-12 03:56] VITALS: BP 129/69; PULSE 89; RESP 18; TEMP 37.1; O2SAT 95
[2022-11-12] MEDS: Acetaminophen 325 MG TABLET 650 MG PO (04:09)
[2022-11-12] MEDS: cefEPime HCl 2 GM in 0.9 % Sodium Chloride 50 ML IV ×3 (04:09→20:51)
[2022-11-12 04:33] LABS: Glucose, Whole Blood 348 mg/dL (60-115)
--- NOTE | 2022-11-12 04:39 | PC.NURSE ---
Rn notified Dr. Harris [facility] pt blood glucose 348.
[2022-11-12 06:05] LABS: MANUAL DIFF FLAG NO
[2022-11-12 06:09] LABS: Basophils Percent Auto 0.3 % (0-2); Eosinophils Percent Auto 0.1 % (0-4); Hematocrit 24.3 % (42.0-52.0); Hemoglobin 8.1 g/dl (14.0-18.0); Imm Gran Abs Auto 0.09 X10*3/uL (0.00-0.03); Imm Gran Pct Auto 0.9 % (0.0-0.4); Lymphocytes Absolute Auto 1.6 X10*3/uL (1.2-4.9); Lymphocytes Percent Auto 16.6 % (20-40); Mean Corpuscular HGB Conc 33.3 g/dl (31.0-36.0); Mean Corpuscular Volume 87.1 fL (80.0-98.0); Mean Platelet Volume 10.9 fL (9.4-12.4); Monocytes Absolute Auto 0.7 X10*3/uL (0.1-1.2); Monocytes Percent Auto 7.6 % (2-11); Neutrophils Absolute Auto 7.1 x10*3/uL (2.0-8.3); Neutrophils Percent Auto 74.5 % (45-73); Platelet Count 152 X10*3/uL (160-400); Red Blood Count 2.79 X10*6/uL (4.60-5.80); Red Cell Distribution Width 13.2 % (11.0-16.0); White Blood Count 9.5 X10*3/uL (4.8-10.8)
[2022-11-12 06:16] VITALS: BP 115/51; PULSE 71; RESP 20; O2SAT 96
[2022-11-12 06:22] LABS: Glucose, Whole Blood 343 mg/dL (60-115)
[2022-11-12 06:27] LABS: Anion Gap 16 (12-20); Blood Urea Nitrogen 41 mg/dL (9-16); Calcium 7.9 mg/dL (8.4-10.2); Carbon Dioxide 24 mmol/L (22-29); Chloride 100 mmol/L (96-108); Creatinine Clr Calc Pharmacy 107.2; Estimated Glomerular Filt Rate > 60; Glucose Random 351 mg/dL (60-115); Potassium 3.8 mmol/L (3.3-5.1); Sodium 136 mmol/L (135-145)
[2022-11-12 07:09] LABS: Estimated Average Glucose 189 mg/dL; Hemoglobin A1c % 8.2 %
[2022-11-12 07:12] VITALS: BP 115/51; PULSE 70; RESP 16; O2SAT 97
[2022-11-12 07:17] LABS: Glucose, Whole Blood 323 mg/dL (60-115)
[2022-11-12] MEDS: vancomycin HCL 1,000 MG in 0.9 % Sodium Chloride 250 ML 270 MG IV ×2 (08:18→21:02)
[2022-11-12] MEDS: Insulin Lispro 100 UNIT/ML 3 ML VIAL SUBCUT ×4 (08:18→20:52)
--- NOTE | 2022-11-12 08:21 | PHA.MEDREC ---
Pharmacy Consult ? Medication Reconciliation Pharmacy has completed the medication reconciliation. med rec completed. spoke with patient.
--- NOTE | 2022-11-12 10:11 | MHC.RECOVRN ---
Met with pt in ED22 after consult placed to Addiction Medicine for cocaine use. Pt laying in bed, awake, alert, easily engages in conversation. Pt reports using heroin, 2-4 bags IV daily, as well as crack cocaine, INH, occasionally. Pt is currently on methadone, 45 mg per pt report, through [facility] [place] x 5-6 years. Pt began using opioids 35 years ago and has been on methadone off and on x 30 years. Pt is not currently experiencing withdrawal. [facility] is closed this weekend due to weather, pt had received take home bottles. Pt calling mother to see if bottles can be brought to [facility] [place]. Discussed with Shama Goins APRN. If bottles can not be brought in, pt to receive 30 mg methadone until verification. RN aware.
[2022-11-12] MEDS: amLODIPine Besylate 2.5 MG TABLET PO (11:54)
[2022-11-12] MEDS: Atorvastatin Calcium 20 MG TABLET PO (11:55)
[2022-11-12] MEDS: Losartan Potassium 25 MG TABLET PO (11:55)
[2022-11-12] MEDS: hydroCHLOROthiazide 25 MG TABLET PO (11:55)
[2022-11-12] MEDS: Metoprolol Succinate ER 25 MG TAB.ER.24H 75 MG PO (11:55)
[2022-11-12 12:46] LABS: Glucose, Whole Blood 328 mg/dL (60-115)
[2022-11-12 13:50] VITALS: BMI 32.3
[2022-11-12 14:14] VITALS: BP 155/69; PULSE 84; RESP 17; TEMP 36.9; O2SAT 96
--- NOTE | 2022-11-12 15:35 | PC.NURSE ---
This RN received two sealed bottles of take home methadone. Each bottle was pre-filled with 45mg of methadone from the [facility]. Prescriber Gerald Gutierrez MD. Bottles were dispensed on 11/10/22 to patient. Bottle 1 was to be taken on 11/11/22 and bottle 2 was to be taken on 11/12/22. Both bottles were sealed and filled. Shama Goins notified. Methadone 45mg ordered. Home methadone bottles to be stored in hospital pharmacy until pt discharge.
--- NOTE | 2022-11-12 15:35 | HE.PHANOTE ---
Methadone Verification Pharmacy has received the methadone verification from [facility]. Patient last received two take-home on bottles on 11/10/22 of methadone 45 mg at [facility]. Patient had family bring in bottles so verify dose. Delmi Squires, [employer]
[2022-11-12 15:41] VITALS: BP 138/63; PULSE 80; RESP 17; TEMP 37.2; O2SAT 95
--- NOTE | 2022-11-12 15:49 | HO.PM.IMPN ---
Subjective Subjective Date of Service: 11/12/22 Physical Exam Vital Signs: Vital Signs: Last Vital Signs Temp 98.9 F 11/12/22 15:41 Pulse 80 11/12/22 15:41 Resp 17 11/12/22 15:41 BP 138/63 11/12/22 15:41 Pulse Ox 95 11/12/22 15:41 O2 Del Method 11/12/22 15:41 BMI result Body Mass Index 32.3 Objective Data Active Medications Acetaminophen (Acetaminophen 325 Mg Tablet) 650 mg PO Q6H PRN PRN Reason: Pain, Mild (Pain Scale 1-3) Last Admin: 11/12/22 04:09 Dose: 650 mg Documented By: DAYA Amlodipine Besylate (Amlodipine Besylate 2.5 Mg Tablet) 2.5 mg PO DAILY [facility]; Protocol Last Admin: 11/12/22 11:54 Dose: 2.5 mg Documented By: CHRISTOPHER Atorvastatin Calcium (Atorvastatin Calcium 20 Mg Tablet) 20 mg PO DAILY [facility] Last Admin: 11/12/22 11:55 Dose: 20 mg Documented By: CHRISTOPHER Dextrose (Dextrose 50 % 25 Gm/50 Ml Syringe) 25 gm IVPUSH Q15M PRN; Protocol PRN Reason: per Hypoglycemia Standing Ord. Enoxaparin Sodium (Enoxaparin Sodium 40 Mg/0.4 Ml Syringe) 40 mg SUBCUT Q24H [facility] Last Admin: 11/12/22 02:50 Dose: 40 mg Documented By: DAYA Gabapentin (Gabapentin 300 Mg Capsule) 300 mg PO TID [facility] Glucose (Glucose Gel 15 Gm Gel..Gram.) 15 gm PO Q15M PRN; Protocol PRN Reason: per Hypoglycemia Standing Ord. Hydrochlorothiazide (Hydrochlorothiazide 25 Mg Tablet) 25 mg PO DAILY [facility]; Protocol Last Admin: 11/12/22 11:55 Dose: 25 mg Documented By: CHRISTOPHER Cefepime HCl 2 gm/ Sodium (Chloride) 50 mls @ 100 mls/hr IV Q8H [facility] Last Infusion: 11/12/22 12:54 Dose: 0 mls/hr Documented By: CHRISTOPHER Vancomycin HCl 1,000 mg/ (Sodium Chloride) 270 mls @ 270 mls/hr IV Q12H [facility] Last Infusion: 11/12/22 09:30 Dose: 0 mls/hr Documented By: CHRISTOPHER Insulin Human Lispro (Insulin Lispro 100 Unit/Ml 3 Ml Vial) 0 unit SUBCUT QIDACHS [facility]; Protocol Last Admin: 11/12/22 12:53 Dose: 8 unit Documented By: CHRISTOPHER Losartan Potassium (Losartan Potassium 25 Mg Tablet) 25 mg PO DAILY [facility]; Protocol Last Admin: 11/12/22 11:55 Dose: 25 mg Documented By: CHRISTOPHER Melatonin (Melatonin 3 Mg Tablet) 6 mg PO BEDTIME PRN PRN Reason: Insomnia Methadone HCl (Methadone Hcl 20 Mg/2 Ml Oral.Conc) 45 mg PO DAILY [facility] Metoprolol Succinate (Metoprolol Succinate Er 25 Mg Tab.Er.24h) 75 mg PO DAILY [facility]; Protocol Last Admin: 11/12/22 11:55 Dose: 75 mg Documented By: CHRISTOPHER Ondansetron HCl (Ondansetron Hcl 4 Mg/2 Ml Vial) 4 mg IVPUSH Q8H PRN PRN Reason: Nausea and Vomiting Pharmacy Consult (Consult Rx Perform Med Rec) 1 each MISCELLANE ONCE PRN PRN Reason: Consult order Pharmacy Consult (Consult Rx Vancomycin Dosing) 1 each MISCELLANE DAILY PRN PRN Reason: Consult order Sodium Chloride (0.9 % Sodium Chloride Flush 3 Ml Syringe) 3 ml IVFLUSH QSHIFT [facility] Last Admin: 11/12/22 08:27 Dose: Not Given Documented By: CHRISTOPHER Non-Admin Reason: Med Not Available Labs 11/12/22 05:36 11/12/22 05:36 Labs: Laboratory Results - last 24 hr 11/11/22 11/11/22 11/11/22 20:34 21:02 21:02 MCV 85.3 MCH 28.5 MCHC 33.5 RDW 13.3 Plt Count 169 MPV 10.5 Immature Gran % (Auto) 0.8 H Neut % (Auto) 80.2 H Lymph % (Auto) 12.4 L [place] % (Auto) 6.3 Eos % (Auto) 0.1 Baso % (Auto) 0.2 Lymph # (Auto) 1.3 [place] # (Auto) 0.7 Eos # (Auto) 0.0 Baso # (Auto) 0.0 Abs Immat Gran (auto) 0.09 H Absolute Neuts (auto) 8.7 H Absolute Nucleated RBC 0.000 Nucleated RBC % (auto) 0.0 ESR 95 H PT INR APTT Anion Gap Estim Creat Clear Calc Estimated GFR POC Glucose 438 H* Random Glucose Estimat Average Glucose Hemoglobin A1c % Lactic Acid Calcium Total Bilirubin AST ALT Alkaline Phosphatase C-Reactive Protein Total Protein Albumin Lipase Urine Color Urine Appearance Urine pH Ur Specific [place] Urine Protein Urine Glucose (UA) Urine Ketones Urine Blood Urine Nitrite Ur Leukocyte Esterase Urine RBC Urine WBC Ur Squamous Epith Cells Urine Bacteria Hyaline Casts Salicylates Urine Opiates Screen Urine Fentanyl Screen Ur Barbiturates Screen Ur Phencyclidine Scrn Ur Amphetamines Screen U Benzodiazepines Scrn Urine Cocaine Screen U Marijuana (THC) Screen COVID-19 (KATHI) COVID-19 Clin Com Influenza Type A (EMANUEL) Influenza Type B (EMANUEL) Influenza A & B Note 11/11/22 11/11/22 11/11/22 21:02 21:19 21:21 MCV MCH MCHC RDW Plt Count MPV Immature Gran % (Auto) Neut % (Auto) Lymph % (Auto) [place] % (Auto) Eos % (Auto) Baso % (Auto) Lymph # (Auto) [place] # (Auto) Eos # (Auto) Baso # (Auto) Abs Immat Gran (auto) Absolute Neuts (auto) Absolute Nucleated RBC Nucleated RBC % (auto) ESR PT INR APTT Anion Gap Estim Creat Clear Calc Estimated GFR POC Glucose Random Glucose Estimat Average Glucose 189 Hemoglobin A1c % 8.2 Lactic Acid 2.0 Calcium Total Bilirubin AST ALT Alkaline Phosphatase C-Reactive Protein Total Protein Albumin Lipase Urine Color Urine Appearance Urine pH Ur Specific [place] Urine Protein Urine Glucose (UA) Urine Ketones Urine Blood Urine Nitrite Ur Leukocyte Esterase Urine RBC Urine WBC Ur Squamous Epith Cells Urine Bacteria Hyaline Casts Salicylates Urine Opiates Screen Urine Fentanyl Screen Ur Barbiturates Screen Ur Phencyclidine Scrn Ur Amphetamines Screen U Benzodiazepines Scrn Urine Cocaine Screen U Marijuana (THC) Screen COVID-19 (KATHI) COVID-19 Clin Com Influenza Type A (EMANUEL) Negative Influenza Type B (EMANUEL) Negative Influenza A & B Note See Note 11/11/22 11/11/22 11/11/22 21:21 22:05 22:05 MCV MCH MCHC RDW Plt Count MPV Immature Gran % (Auto) Neut % (Auto) Lymph % (Auto) [place] % (Auto) Eos % (Auto) Baso % (Auto) Lymph # (Auto) [place] # (Auto) Eos # (Auto) Baso # (Auto) Abs Immat Gran (auto) Absolute Neuts (auto) Absolute Nucleated RBC Nucleated RBC % (auto) ESR PT INR APTT Anion Gap Estim Creat Clear Calc Estimated GFR POC Glucose Random Glucose Estimat Average Glucose Hemoglobin A1c % Lactic Acid Calcium Total Bilirubin AST ALT Alkaline Phosphatase C-Reactive Protein Total Protein Albumin Lipase Urine Color Yellow Urine Appearance Clear Urine pH 5.5 Ur Specific [place] 1.020 Urine Protein 30 (1+) H Urine Glucose (UA) >=1000 H Urine Ketones Negative Urine Blood Negative Urine Nitrite Negative Ur Leukocyte Esterase Negative Urine RBC 0-2 Urine WBC 0-5 Ur Squamous Epith Cells 0-2 Urine Bacteria None Seen Hyaline Casts 0-2 Salicylates Urine Opiates Screen Not Detected Urine Fentanyl Screen POSITIVE H Ur Barbiturates Screen Not Detected Ur Phencyclidine Scrn Not Detected Ur Amphetamines Screen Not Detected U Benzodiazepines Scrn Not Detected Urine Cocaine Screen POSITIVE H U Marijuana (THC) Screen Not Detected COVID-19 (KATHI) Negative COVID-19 Clin Com See Note Influenza Type A (EMANUEL) Influenza Type B (EMANUEL) Influenza A & B Note 11/11/22 11/11/22 11/12/22 22:29 22:29 02:38 MCV MCH MCHC RDW Plt Count MPV Immature Gran % (Auto) Neut % (Auto) Lymph % (Auto) [place] % (Auto) Eos % (Auto) Baso % (Auto) Lymph # (Auto) [place] # (Auto) Eos # (Auto) Baso # (Auto) Abs Immat Gran (auto) Absolute Neuts (auto) Absolute Nucleated RBC Nucleated RBC % (auto) ESR PT 14.3 H INR 1.2 H APTT 28.3 Anion Gap 12 Estim Creat Clear Calc 98.3 Estimated GFR > 60 POC Glucose 391 H* Random Glucose 404 H* Estimat Average Glucose Hemoglobin A1c % Lactic Acid Calcium 7.6 L D Total Bilirubin 1.4 H AST 34 ALT 30 Alkaline Phosphatase 77 C-Reactive Protein 29.34 H Total Protein 5.7 L Albumin 2.3 L Lipase 11 Urine Color Urine Appearance Urine pH Ur Specific [place] Urine Protein Urine Glucose (UA) Urine Ketones Urine Blood Urine Nitrite Ur Leukocyte Esterase Urine RBC Urine WBC Ur Squamous Epith Cells Urine Bacteria Hyaline Casts Salicylates < 5.0 L Urine Opiates Screen Urine Fentanyl Screen Ur Barbiturates Screen Ur Phencyclidine Scrn Ur Amphetamines Screen U Benzodiazepines Scrn Urine Cocaine Screen U Marijuana (THC) Screen COVID-19 (KATHI) COVID-19 Clin Com Influenza Type A (EMANUEL) Influenza Type B (EMANUEL) Influenza A & B Note 11/12/22 11/12/22 11/12/22 04:28 05:36 05:36 MCV 87.1 MCH 29.0 MCHC 33.3 RDW 13.2 Plt Count 152 L MPV 10.9 Immature Gran % (Auto) 0.9 H Neut % (Auto) 74.5 H Lymph % (Auto) 16.6 L [place] % (Auto) 7.6 Eos % (Auto) 0.1 Baso % (Auto) 0.3 Lymph # (Auto) 1.6 [place] # (Auto) 0.7 Eos # (Auto) 0.0 Baso # (Auto) 0.0 Abs Immat Gran (auto) 0.09 H Absolute Neuts (auto) 7.1 Absolute Nucleated RBC 0.000 Nucleated RBC % (auto) 0.0 ESR PT INR APTT Anion Gap 16 Estim Creat Clear Calc 107.2 Estimated GFR > 60 POC Glucose 348 H Random Glucose 351 H* Estimat Average Glucose Hemoglobin A1c % Lactic Acid Calcium 7.9 L Total Bilirubin AST ALT Alkaline Phosphatase C-Reactive Protein Total Protein Albumin Lipase Urine Color Urine Appearance Urine pH Ur Specific [place] Urine Protein Urine Glucose (UA) Urine Ketones Urine Blood Urine Nitrite Ur Leukocyte Esterase Urine RBC Urine WBC Ur Squamous Epith Cells Urine Bacteria Hyaline Casts Salicylates Urine Opiates Screen Urine Fentanyl Screen Ur Barbiturates Screen Ur Phencyclidine Scrn Ur Amphetamines Screen U Benzodiazepines Scrn Urine Cocaine Screen U Marijuana (THC) Screen COVID-19 (KATHI) COVID-19 Clin Com Influenza Type A (EMANUEL) Influenza Type B (EMANUEL) Influenza A & B Note 11/12/22 11/12/22 11/12/22 06:17 07:10 12:42 MCV MCH MCHC RDW Plt Count MPV Immature Gran % (Auto) Neut % (Auto) Lymph % (Auto) [place] % (Auto) Eos % (Auto) Baso % (Auto) Lymph # (Auto) [place] # (Auto) Eos # (Auto) Baso # (Auto) Abs Immat Gran (auto) Absolute Neuts (auto) Absolute Nucleated RBC Nucleated RBC % (auto) ESR PT INR APTT Anion Gap Estim Creat Clear Calc Estimated GFR POC Glucose 343 H 323 H 328 H Random Glucose Estimat Average Glucose Hemoglobin A1c % Lactic Acid Calcium Total Bilirubin AST ALT Alkaline Phosphatase C-Reactive Protein Total Protein Albumin Lipase Urine Color Urine Appearance Urine pH Ur Specific [place] Urine Protein Urine Glucose (UA) Urine Ketones Urine Blood Urine Nitrite Ur Leukocyte Esterase Urine RBC Urine WBC Ur Squamous Epith Cells Urine Bacteria Hyaline Casts Salicylates Urine Opiates Screen Urine Fentanyl Screen Ur Barbiturates Screen Ur Phencyclidine Scrn Ur Amphetamines Screen U Benzodiazepines Scrn Urine Cocaine Screen U Marijuana (THC) Screen COVID-19 (KATHI) COVID-19 Clin Com Influenza Type A (EMANUEL) Influenza Type B (EMANUEL) Influenza A & B Note Microbiology Microbiology Results: Microbiology 11/11/22 21:19 Blood Culture - Preliminary Blood - Venous Prelim: GPC Gram Stain only 11/11/22 20:59 Blood Culture - Preliminary Blood - Venous Prelim: GPC Gram Stain only Assessment and Plan (1) Cellulitis of right leg: Status: Acute (2) Diabetic ulcer of left foot: Status: Acute Plan This is a 67-year-old female with pertinent history of insulin-dependent diabetes mellitus, opioid and cocaine use disorder, history of diabetic foot ulcer with osteomyelitis, essential hypertension presents to the emergency department evaluation of fevers and chills. #Sepsis due to right lower extremity cellulitis and left lower extremity diabetic foot ulcer -Sepsis resolved -Continue IV vanco and cefepime -ESR 96, CRP 25 -Unable to obtain MRI due to equipment issue. CT b/l foot and ankles ordered to rule out osteomyelitis -Follow Blood culture #Uncontrolled insulin-dependent diabetes mellitus with hyperglycemia -A1c 8.2% -continue basal insulin -humalog ssi -poc glucose -diabetic diet #.Cocaine and heroin use disorder -Consulted addiction team and CARE team -continue methadone #Chronic normocytic anemia -Hemoglobin above transfusion threshold -MOnitor H.H #Essential hypertension -resume home meds Med rec pending DVT prophylaxis:? Lovenox 40 mg daily Full code Diabetic diet Pt requires ongoing inpt stay for management of suspected osteomyelitis with sepsis requiring IV antibiotics Time Spent With Patient Time: Total time managing care of this patient today ____ minutes. Quality Stroke Does the patient have a stroke diagnosis?: No VTE Prior VTE?: No VTE Risk Level:: Medical - moderate - high VTE Device Contraindication: Treatment Not Indicated VTE Drug Contraindication: N/A - Med Ordered
[2022-11-12] MEDS: Gabapentin 300 MG CAPSULE PO ×2 (15:55→20:52)
[2022-11-12] MEDS: methADONE HCl 20 MG/2 ML ORAL.CONC 45 MG PO (15:55)
[2022-11-12] MEDS: 0.9 % Sodium Chloride Flush 3 ML SYRINGE IVFLUSH (15:58)
--- NOTE | 2022-11-12 16:20 | MHC.CM.PN ---
PT REPORTS HE LIVES WITH HIS MOTHER AND IS INDEPENDENT WITH CARE HE REPORTS HE USES A CANE/WALKER PRN HE IS CONNECTED WITH A MMTP HE DECLINES A HCP PCP: DIPAK PATRICK +LAMBERTO IMM DELIVERED CURRENT DC PLAN IS HOME WITH RESUMPTION OF OP SA TREATMENT PT TO ARRANGE TRANSPORT
[2022-11-12 16:31] LABS: Glucose, Whole Blood 258 mg/dL (60-115)
[2022-11-12] MEDS: iohexoL 350 MG/ML 100 ML INFUS..BTL IV (19:06)
[2022-11-12 20:00] VITALS: BP 143/65; PULSE 74; RESP 15; TEMP 36.1; O2SAT 91
[2022-11-12 20:31] LABS: Glucose, Whole Blood 235 mg/dL (60-115)
[2022-11-12] MEDS: Insulin Glargine,Hum.rec.anlog 100 UNIT/ML 10 ML VIAL 30 UNIT SUBCUT (20:52)
[2022-11-13 03:17] VITALS: BP 126/62; PULSE 64; RESP 20; TEMP 37.2; O2SAT 93
[2022-11-13] MEDS: Enoxaparin Sodium 40 MG/0.4 ML SYRINGE SUBCUT (03:31)
[2022-11-13] MEDS: cefEPime HCl 2 GM in 0.9 % Sodium Chloride 50 ML IV ×3 (03:31→19:51)
[2022-11-13] MEDS: Acetaminophen 325 MG TABLET 650 MG PO (03:32)
[2022-11-13 07:34] VITALS: BP 120/58; PULSE 61; RESP 16; TEMP 36.2; O2SAT 95
[2022-11-13 07:34] LABS: Vancomycin Trough 10.6 mcg/mL (10.0-20.0)
[2022-11-13 07:36] LABS: Glucose, Whole Blood 195 mg/dL (60-115)
[2022-11-13 08:26] LABS: Creatinine Clr Calc Pharmacy 106.9; Estimated Glomerular Filt Rate > 60
[2022-11-13] MEDS: Insulin Lispro 100 UNIT/ML 3 ML VIAL SUBCUT ×4 (08:26→20:32)
[2022-11-13] MEDS: methADONE HCl 20 MG/2 ML ORAL.CONC 45 MG PO (08:27)
[2022-11-13] MEDS: Insulin Glargine,Hum.rec.anlog 100 UNIT/ML 10 ML VIAL 30 UNIT SUBCUT (08:27)
[2022-11-13] MEDS: amLODIPine Besylate 2.5 MG TABLET PO (08:30)
[2022-11-13] MEDS: hydroCHLOROthiazide 25 MG TABLET PO (08:30)
[2022-11-13] MEDS: Losartan Potassium 25 MG TABLET PO (08:30)
[2022-11-13] MEDS: Atorvastatin Calcium 20 MG TABLET PO (08:30)
[2022-11-13] MEDS: Gabapentin 300 MG CAPSULE PO ×3 (08:30→19:51)
[2022-11-13] MEDS: 0.9 % Sodium Chloride Flush 3 ML SYRINGE IVFLUSH ×2 (08:36→14:13)
--- NOTE | 2022-11-13 08:37 | HE.PHANOTE ---
Vancomycin Dosing Addendum Patients level came back this morning at 10.6. Dose increased to 1250 mg Q12H, renal function is stable. AUC is 477 mg/L/hr. Next level tomorrow 11/14 @0700
[2022-11-13] MEDS: vancomycin HCL 1,250 MG in 0.9 % Sodium Chloride 250 ML 166.67 MG IV ×2 (09:54→20:34)
[2022-11-13 11:34] LABS: Glucose, Whole Blood 204 mg/dL (60-115)
[2022-11-13] MEDS: Metoprolol Succinate ER 25 MG TAB.ER.24H 75 MG PO (12:25)
--- NOTE | 2022-11-13 12:26 | P.EN_ITS ---
Event Note Date of Service: 11/13/22 Event Note: Addiction consult placed seen by street light wirer--please see note dated 11/12/2022 methadone verified and ordered as he receives it outpatient Time Spent With Patient Time: Total time managing care of this patient today ____ minutes.
--- NOTE | 2022-11-13 12:58 | HO.PM.IMPN ---
Subjective Subjective Date of Service: 11/13/22 Interval History: no acute issues overnight. Resting comfortably Review of Systems denies chest pain Denies shortness of breath Denies nausea vomiting diarrhea Denies fever chills Physical Exam Vital Signs: Vital Signs: Last Vital Signs Temp 97.1 F 11/13/22 07:34 Pulse 61 11/13/22 07:34 Resp 16 11/13/22 07:34 BP 120/58 L 11/13/22 07:34 Pulse Ox 95 11/13/22 07:34 O2 Del Method 11/13/22 07:34 BMI result Body Mass Index 32.3 Const: Other: awake alert no acute distress Resp: Other: clear to auscultation bilaterally no rales rhonchi or whee Cardio: Other: no S4; positive S1-S2; no S3 murmurs rubs or gallops Skin: Other: see ER photos Extrem: Other: no edema bilaterally Objective Data Active Medications Acetaminophen (Acetaminophen 325 Mg Tablet) 650 mg PO Q6H PRN PRN Reason: Pain, Mild (Pain Scale 1-3) Last Admin: 11/13/22 03:32 Dose: 650 mg Documented By: ARRON Amlodipine Besylate (Amlodipine Besylate 2.5 Mg Tablet) 2.5 mg PO DAILY [facility]; Protocol Last Admin: 11/13/22 08:30 Dose: 2.5 mg Documented By: MERARY Atorvastatin Calcium (Atorvastatin Calcium 20 Mg Tablet) 20 mg PO DAILY [facility] Last Admin: 11/13/22 08:30 Dose: 20 mg Documented By: MERARY Enoxaparin Sodium (Enoxaparin Sodium 40 Mg/0.4 Ml Syringe) 40 mg SUBCUT Q24H [facility] Last Admin: 11/13/22 03:31 Dose: 40 mg Documented By: ARRON Gabapentin (Gabapentin 300 Mg Capsule) 300 mg PO TID [facility] Last Admin: 11/13/22 08:30 Dose: 300 mg Documented By: MERARY Glucose (Glucose Gel 15 Gm Gel..Gram.) 15 gm PO Q15M PRN; Protocol PRN Reason: per Hypoglycemia Standing Ord. Hydrochlorothiazide (Hydrochlorothiazide 25 Mg Tablet) 25 mg PO DAILY [facility]; Protocol Last Admin: 11/13/22 08:30 Dose: 25 mg Documented By: MERARY Cefepime HCl 2 gm/ Sodium (Chloride) 50 mls @ 100 mls/hr IV Q8H [facility] Last Infusion: 11/13/22 04:10 Dose: 0 mls/hr Documented By: ARRON Vancomycin HCl 1,250 mg/ (Sodium Chloride) 250 mls @ 166.667 mls/hr IV Q12H [facility] Last Admin: 11/13/22 09:54 Dose: 166.67 mls/hr Documented By: MERARY Dextrose (D10) 250 mls @ 750 mls/hr IV Q15M PRN PRN Reason: per Hypoglycemia Standing Ord. Insulin Glargine (Insulin Glargine,Hum.Rec.Anlog 100 Unit/Ml 10 Ml Vial) 30 unit SUBCUT BID [facility] Last Admin: 11/13/22 08:27 Dose: 30 unit Documented By: MERARY Insulin Human Lispro (Insulin Lispro 100 Unit/Ml 3 Ml Vial) 0 unit SUBCUT QIDACHS [facility]; Protocol Last Admin: 11/13/22 12:23 Dose: 4 unit Documented By: MERARY Losartan Potassium (Losartan Potassium 25 Mg Tablet) 25 mg PO DAILY [facility]; Protocol Last Admin: 11/13/22 08:30 Dose: 25 mg Documented By: MERARY Melatonin (Melatonin 3 Mg Tablet) 6 mg PO BEDTIME PRN PRN Reason: Insomnia Methadone HCl (Methadone Hcl 20 Mg/2 Ml Oral.Conc) 45 mg PO DAILY [facility] Last Admin: 11/13/22 08:27 Dose: 45 mg Documented By: MERARY Metoprolol Succinate (Metoprolol Succinate Er 25 Mg Tab.Er.24h) 75 mg PO DAILY [facility]; Protocol Last Admin: 11/13/22 12:25 Dose: 75 mg Documented By: MERARY Ondansetron HCl (Ondansetron Hcl 4 Mg/2 Ml Vial) 4 mg IVPUSH Q8H PRN PRN Reason: Nausea and Vomiting Pharmacy Consult (Consult Rx Perform Med Rec) 1 each MISCELLANE ONCE PRN PRN Reason: Consult order Pharmacy Consult (Consult Rx Vancomycin Dosing) 1 each MISCELLANE DAILY PRN PRN Reason: Consult order Sodium Chloride (0.9 % Sodium Chloride Flush 3 Ml Syringe) 3 ml IVFLUSH QSHIFT [facility] Last Admin: 11/13/22 08:36 Dose: 3 ml Documented By: MERARY Labs 11/12/22 05:36 11/13/22 07:00 Labs: Laboratory Results - last 24 hr 11/12/22 11/12/22 11/13/22 16:27 20:28 07:00 Estim Creat Clear Calc Estimated GFR POC Glucose 258 H 235 H Vancomycin Trough 10.6 11/13/22 11/13/22 11/13/22 07:00 07:32 11:30 Estim Creat Clear Calc 106.9 Estimated GFR > 60 POC Glucose 195 H 204 H Vancomycin Trough Microbiology Microbiology Results: Microbiology 11/11/22 21:19 Blood Culture - Preliminary Blood - Venous Staphylococcus aureus 11/11/22 20:59 Blood Culture - Preliminary Blood - Venous Staphylococcus aureus Assessment and Plan (1) Sepsis: Status: Acute (2) Cellulitis of right leg: Status: Acute (3) Diabetic ulcer of left foot: Status: Acute (4) Diabetes mellitus: Status: Acute Plan This is a 67-year-old female with pertinent history of insulin-dependent diabetes mellitus, opioid and cocaine use disorder, history of diabetic foot ulcer with osteomyelitis, essential hypertension presents to the emergency department evaluation of fevers and chills. 1.Sepsis due to right lower extremity cellulitis and left lower extremity diabetic foot ulcer -Sepsis resolved -Continue IV vanco/cefepime(2) -ESR 96, CRP 25... likely osteo myelitis - ID to see for duration of therapy 2.Uncontrolled insulin-dependent diabetes mellitus with hyperglycemia -poor control - increase Lantus to 40 PID and follow -continue lispro correctional scale 3.Cocaine and heroin use disorder -Consulted addiction team and CARE team -methadone as ordered 4.Essential hypertension -resume home meds -adjust as indicated Lovenox 40 mg daily Full code Pt requires ongoing inpatient hospitalization for IV antibiotics to treat osteomyelitis Time Spent With Patient Time: Total time managing care of this patient today ____ minutes. Quality Stroke Does the patient have a stroke diagnosis?: No VTE Prior VTE?: No VTE Risk Level:: Medical - moderate - high VTE Device Contraindication: Treatment Not Indicated VTE Drug Contraindication: N/A - Med Ordered
[2022-11-13 15:28] VITALS: BP 148/69; PULSE 81; RESP 18; TEMP 37.3; O2SAT 95
[2022-11-13 16:33] LABS: Glucose, Whole Blood 277 mg/dL (60-115)
[2022-11-13 19:29] VITALS: BP 146/65; PULSE 74; RESP 16; TEMP 37.4; O2SAT 96
[2022-11-13 20:28] LABS: Glucose, Whole Blood 345 mg/dL (60-115)
[2022-11-14] MEDS: Enoxaparin Sodium 40 MG/0.4 ML SYRINGE SUBCUT (01:58)
[2022-11-14 04:00] VITALS: BP 137/62; PULSE 70; RESP 15; TEMP 37.1; O2SAT 95
[2022-11-14] MEDS: cefEPime HCl 2 GM in 0.9 % Sodium Chloride 50 ML IV ×2 (04:45→11:28)
[2022-11-14 07:31] VITALS: BP 129/59; PULSE 69; RESP 17; TEMP 36.8; O2SAT 93
[2022-11-14 07:39] LABS: Hemoglobin 8.3 g/dl (14.0-18.0); Mean Corpuscular HGB Conc 31.9 g/dl (31.0-36.0); Mean Corpuscular Hemoglobin 28.1 pg (27.0-33.0); Mean Corpuscular Volume 88.1 fL (80.0-98.0); Mean Platelet Volume 10.3 fL (9.4-12.4); Platelet Count 171 X10*3/uL (160-400); Red Blood Count 2.95 X10*6/uL (4.60-5.80); Red Cell Distribution Width 13.6 % (11.0-16.0); White Blood Count 12.3 X10*3/uL (4.8-10.8)
[2022-11-14 07:42] LABS: Alanine Aminotransferase 53 U/L (0-40); Alkaline Phosphatase 94 U/L (39-117); Anion Gap 14 (12-20); Aspartate Amino Transferase 63 U/L (5-37); Bilirubin Total 1.1 mg/dL (0.0-1.0); Blood Urea Nitrogen 34 mg/dL (9-16); Calcium 7.7 mg/dL (8.4-10.2); Carbon Dioxide 26 mmol/L (22-29); Chloride 97 mmol/L (96-108); Creatinine Clr Calc Pharmacy 109.1; Estimated Glomerular Filt Rate > 60; Glucose Fasting 290 mg/dL (60-99); Potassium 3.5 mmol/L (3.3-5.1); Sodium 133 mmol/L (135-145); Total Protein 5.9 g/dL (6.5-8.0)
[2022-11-14 07:47] LABS: Glucose, Whole Blood 282 mg/dL (60-115)
[2022-11-14 07:52] LABS: Vancomycin Random 14.4 mcg/mL (15-20)
[2022-11-14] MEDS: hydroCHLOROthiazide 25 MG TABLET PO (07:59)
[2022-11-14] MEDS: methADONE HCl 20 MG/2 ML ORAL.CONC 45 MG PO (07:59)
[2022-11-14] MEDS: Metoprolol Succinate ER 25 MG TAB.ER.24H 75 MG PO (08:00)
[2022-11-14] MEDS: amLODIPine Besylate 2.5 MG TABLET PO (08:00)
[2022-11-14] MEDS: Atorvastatin Calcium 20 MG TABLET PO (08:00)
[2022-11-14] MEDS: Losartan Potassium 25 MG TABLET PO (08:00)
[2022-11-14] MEDS: 0.9 % Sodium Chloride Flush 3 ML SYRINGE IVFLUSH ×3 (08:00→21:17)
[2022-11-14] MEDS: Gabapentin 300 MG CAPSULE PO ×3 (08:00→21:16)
[2022-11-14] MEDS: Insulin Lispro 100 UNIT/ML 3 ML VIAL SUBCUT ×4 (08:03→21:26)
[2022-11-14 08:17] LABS: Atypical Lymph Absolute Manual 0.2 x10*3/uL; Atypical Lymphs Percent Manual 2 % (0-6); Band Neutrophils Percent 4 % (3-5); Lymphocytes Absolute Manual 1.2 X10*3/uL (1.2-4.9); Lymphocytes Percent Manual 10 % (20-40); Metamyelocytes Absolute 0.2 X10*3/uL; Metamyelocytes Percent 2 %; Monocytes Absolute Manual 0.9 X10*3/uL (0.1-1.2); Monocytes Percent Manual 7 % (2-11); Neutrophils Absolute Manual 9.7 X10*3/uL (2.0-8.3); Neutrophils Percent Manual 75 % (45-73)
[2022-11-14 08:18] LABS: Hypochromasia 1+ (5-14) /OIF; Platelet Estimate NORMAL (NORMAL); Platelet Morphology Comment NORMAL; RBC Morphology NOTED; Smudge Cells PRESENT; Toxic Vacuolation PRESENT
[2022-11-14] MEDS: Insulin Glargine,Hum.rec.anlog 100 UNIT/ML 10 ML VIAL 40 UNIT SUBCUT ×2 (09:33→21:27)
[2022-11-14] MEDS: vancomycin HCL 1,250 MG in 0.9 % Sodium Chloride 250 ML 166.66 MG IV (09:34)
[2022-11-14] MEDS: Acetaminophen 325 MG TABLET 650 MG PO (10:52)
[2022-11-14 11:19] LABS: Glucose, Whole Blood 262 mg/dL (60-115)
--- NOTE | 2022-11-14 11:39 | MHC.CM.PN ---
AWAITING SURGICAL INTERVENTION WILL LIKELY NEED LT ABX
--- NOTE | 2022-11-14 14:25 | HO.PM.IMPN ---
Subjective Subjective Date of Service: 11/14/22 Interval History: developed weeping drainage right foot. No fever overnight Review of Systems denies chest pain Denies shortness of breath Denies nausea vomiting diarrhea Denies fever chills Physical Exam Vital Signs: Vital Signs: Last Vital Signs Temp 98.2 F 11/14/22 07:31 Pulse 69 11/14/22 07:31 Resp 17 11/14/22 07:31 BP 129/59 L 11/14/22 07:31 Pulse Ox 93 11/14/22 07:31 O2 Del Method 11/14/22 07:31 BMI result Body Mass Index 32.3 Const: Other: awake alert no acute distress Resp: Other: clear to auscultation bilaterally no rales rhonchi or whee Cardio: Other: no S4; positive S1-S2; no S3 murmurs rubs or gallops Skin: Other: see ER photos Extrem: Other: no edema bilaterally Objective Data Active Medications Acetaminophen (Acetaminophen 325 Mg Tablet) 650 mg PO Q6H PRN PRN Reason: Pain, Mild (Pain Scale 1-3) Last Admin: 11/14/22 10:52 Dose: 650 mg Documented By: FAMILIA Amlodipine Besylate (Amlodipine Besylate 2.5 Mg Tablet) 2.5 mg PO DAILY [facility]; Protocol Last Admin: 11/14/22 08:00 Dose: 2.5 mg Documented By: FAMILIA Atorvastatin Calcium (Atorvastatin Calcium 20 Mg Tablet) 20 mg PO DAILY [facility] Last Admin: 11/14/22 08:00 Dose: 20 mg Documented By: FAMILIA Enoxaparin Sodium (Enoxaparin Sodium 40 Mg/0.4 Ml Syringe) 40 mg SUBCUT Q24H [facility] Last Admin: 11/14/22 01:58 Dose: 40 mg Documented By: ARRON Gabapentin (Gabapentin 300 Mg Capsule) 300 mg PO TID [facility] Last Admin: 11/14/22 08:00 Dose: 300 mg Documented By: FAMILIA Glucose (Glucose Gel 15 Gm Gel..Gram.) 15 gm PO Q15M PRN; Protocol PRN Reason: per Hypoglycemia Standing Ord. Hydrochlorothiazide (Hydrochlorothiazide 25 Mg Tablet) 25 mg PO DAILY [facility]; Protocol Last Admin: 11/14/22 07:59 Dose: 25 mg Documented By: FAMILIA Cefepime HCl 2 gm/ Sodium (Chloride) 50 mls @ 100 mls/hr IV Q8H [facility] Last Infusion: 11/14/22 12:32 Dose: 0 mls/hr Documented By: FAMILIA Vancomycin HCl 1,250 mg/ (Sodium Chloride) 250 mls @ 166.667 mls/hr IV Q12H [facility] Last Infusion: 11/14/22 11:34 Dose: 0 mls/hr Documented By: FAMILIA Dextrose (D10) 250 mls @ 750 mls/hr IV Q15M PRN; Protocol PRN Reason: per Hypoglycemia Standing Ord. Insulin Glargine (Insulin Glargine,Hum.Rec.Anlog 100 Unit/Ml 10 Ml Vial) 40 unit SUBCUT BID [facility] Last Admin: 11/14/22 09:33 Dose: 40 unit Documented By: FAMILIA Insulin Human Lispro (Insulin Lispro 100 Unit/Ml 3 Ml Vial) 0 unit SUBCUT QIDACHS [facility]; Protocol Last Admin: 11/14/22 11:28 Dose: 6 unit Documented By: FAMILIA Losartan Potassium (Losartan Potassium 25 Mg Tablet) 25 mg PO DAILY [facility]; Protocol Last Admin: 11/14/22 08:00 Dose: 25 mg Documented By: FAMILIA Melatonin (Melatonin 3 Mg Tablet) 6 mg PO BEDTIME PRN PRN Reason: Insomnia Methadone HCl (Methadone Hcl 20 Mg/2 Ml Oral.Conc) 45 mg PO DAILY [facility] Last Admin: 11/14/22 07:59 Dose: 45 mg Documented By: FAMILIA Metoprolol Succinate (Metoprolol Succinate Er 25 Mg Tab.Er.24h) 75 mg PO DAILY [facility]; Protocol Last Admin: 11/14/22 08:00 Dose: 75 mg Documented By: FAMILIA Ondansetron HCl (Ondansetron Hcl 4 Mg/2 Ml Vial) 4 mg IVPUSH Q8H PRN PRN Reason: Nausea and Vomiting Oxycodone HCl (Oxycodone Hcl Immed Release 5 Mg Tablet) 5 mg PO Q4H PRN PRN Reason: Pain, Moderate (Pain Scale 4-6 Pharmacy Consult (Consult Rx Perform Med Rec) 1 each MISCELLANE ONCE PRN PRN Reason: Consult order Pharmacy Consult (Consult Rx Vancomycin Dosing) 1 each MISCELLANE DAILY PRN PRN Reason: Consult order Sodium Chloride (0.9 % Sodium Chloride Flush 3 Ml Syringe) 3 ml IVFLUSH QSHIFT [facility] Last Admin: 11/14/22 08:00 Dose: 3 ml Documented By: FAMILIA Labs 11/14/22 07:19 11/14/22 07:19 Labs: Laboratory Results - last 24 hr 11/13/22 11/13/22 11/14/22 16:26 20:12 07:19 MCV MCH MCHC RDW Plt Count MPV Immature Gran % (Auto) Neut % (Auto) Lymph % (Auto) Price % (Auto) Eos % (Auto) Baso % (Auto) Lymph # (Auto) Price # (Auto) Eos # (Auto) Baso # (Auto) Abs Immat Gran (auto) Absolute Neuts (auto) Absolute Nucleated RBC Nucleated RBC % (auto) Neutrophils % (Manual) Band Neutrophils % Lymphocytes % (Manual) Atypical Lymphs % (Man) Monocytes % (Manual) Metamyelocytes % Abs Neuts (Manual) Lymphocytes # (Manual) Atyp Lymphs # (Manual) Monocytes # (Manual) Metamyelocytes # Smudge Cells Toxic Vacuolation Platelet Estimate Plt Morphology Comment RBC Morphology Hypochromasia Anion Gap Estim Creat Clear Calc Estimated GFR POC Glucose 277 H 345 H Fasting Glucose Calcium Total Bilirubin AST ALT Alkaline Phosphatase Total Protein Albumin Random Vancomycin 14.4 L 11/14/22 11/14/22 11/14/22 07:19 07:19 07:38 MCV 88.1 MCH 28.1 MCHC 31.9 RDW 13.6 Plt Count 171 MPV 10.3 Immature Gran % (Auto) Cancelled Neut % (Auto) Cancelled Lymph % (Auto) Cancelled Price % (Auto) Cancelled Eos % (Auto) Cancelled Baso % (Auto) Cancelled Lymph # (Auto) Cancelled Price # (Auto) Cancelled Eos # (Auto) Cancelled Baso # (Auto) Cancelled Abs Immat Gran (auto) Cancelled Absolute Neuts (auto) Cancelled Absolute Nucleated RBC 0.000 Nucleated RBC % (auto) 0.0 Neutrophils % (Manual) 75 H Band Neutrophils % 4 Lymphocytes % (Manual) 10 L Atypical Lymphs % (Man) 2 Monocytes % (Manual) 7 Metamyelocytes % 2 Abs Neuts (Manual) 9.7 H Lymphocytes # (Manual) 1.2 Atyp Lymphs # (Manual) 0.2 Monocytes # (Manual) 0.9 Metamyelocytes # 0.2 Smudge Cells PRESENT Toxic Vacuolation PRESENT Platelet Estimate NORMAL Plt Morphology Comment NORMAL RBC Morphology NOTED Hypochromasia 1+ (5-14) Anion Gap 14 Estim Creat Clear Calc 109.1 Estimated GFR > 60 POC Glucose 282 H Fasting Glucose 290 H Calcium 7.7 L Total Bilirubin 1.1 H AST 63 H ALT 53 H Alkaline Phosphatase 94 Total Protein 5.9 L Albumin 2.0 L Random Vancomycin 11/14/22 11:15 MCV MCH MCHC RDW Plt Count MPV Immature Gran % (Auto) Neut % (Auto) Lymph % (Auto) Price % (Auto) Eos % (Auto) Baso % (Auto) Lymph # (Auto) Price # (Auto) Eos # (Auto) Baso # (Auto) Abs Immat Gran (auto) Absolute Neuts (auto) Absolute Nucleated RBC Nucleated RBC % (auto) Neutrophils % (Manual) Band Neutrophils % Lymphocytes % (Manual) Atypical Lymphs % (Man) Monocytes % (Manual) Metamyelocytes % Abs Neuts (Manual) Lymphocytes # (Manual) Atyp Lymphs # (Manual) Monocytes # (Manual) Metamyelocytes # Smudge Cells Toxic Vacuolation Platelet Estimate Plt Morphology Comment RBC Morphology Hypochromasia Anion Gap Estim Creat Clear Calc Estimated GFR POC Glucose 262 H Fasting Glucose Calcium Total Bilirubin AST ALT Alkaline Phosphatase Total Protein Albumin Random Vancomycin Microbiology Microbiology Results: Microbiology 11/11/22 21:19 Blood Culture - Final Blood - Venous Staphylococcus aureus 11/11/22 20:59 Blood Culture - Final Blood - Venous Staphylococcus aureus Assessment and Plan (1) Cellulitis of right leg: Status: Acute (2) Sepsis: Status: Acute (3) Diabetes mellitus: Status: Acute Plan This is a 67-year-old female with pertinent history of insulin-dependent diabetes mellitus, opioid and cocaine use disorder, history of diabetic foot ulcer with osteomyelitis, essential hypertension presents to the emergency department evaluation of fevers and chills. 1.Sepsis due to right lower extremity cellulitis and left lower extremity diabetic foot ulcer -Sepsis resolved -Continue IV vanco/cefepime(3) - surgery consult drain abscess - ID to see for duration of therapy 2.Uncontrolled insulin-dependent diabetes mellitus with hyperglycemia -poor control - increase Lantus to 40 BID and follow -continue lispro correctional scale 3.Cocaine and heroin use disorder -Consulted addiction team and CARE team -methadone as ordered 4.Essential hypertension -resume home meds -adjust as indicated Lovenox 40 mg daily Full code Pt requires ongoing inpatient hospitalization for IV antibiotics to treat osteomyelitis Time Spent With Patient Time: Total time managing care of this patient today ____ minutes. Quality Stroke Does the patient have a stroke diagnosis?: No VTE Prior VTE?: No VTE Risk Level:: Medical - moderate - high VTE Device Contraindication: Treatment Not Indicated VTE Drug Contraindication: N/A - Med Ordered
[2022-11-14] MEDS: oxyCODONE HCl Immed Release 5 MG TABLET PO (14:38)
[2022-11-14 16:00] VITALS: BP 142/61; PULSE 72; RESP 18; TEMP 36.8; O2SAT 96
[2022-11-14] MEDS: ceFAZolin Sodium/Dextrose,Iso 2 GM/50 ML PIGGYBACK IV ×2 (16:38→21:25)
[2022-11-14 16:45] LABS: Glucose, Whole Blood 399 mg/dL (60-115)
[2022-11-14] MEDS: Insulin Lispro 100 UNIT/ML 3 ML VIAL 10 UNIT SUBCUT (17:18)
[2022-11-14 20:00] VITALS: BP 170/69; PULSE 72; RESP 20; TEMP 36.5; O2SAT 99
[2022-11-14 20:37] LABS: Glucose, Whole Blood 268 mg/dL (60-115)
[2022-11-15] MEDS: Enoxaparin Sodium 40 MG/0.4 ML SYRINGE SUBCUT ×2 (00:05→23:56)
[2022-11-15 03:12] VITALS: BP 137/65; PULSE 60; RESP 18; TEMP 36.3; O2SAT 95
[2022-11-15] MEDS: oxyCODONE HCl Immed Release 5 MG TABLET PO ×2 (03:26→12:04)
[2022-11-15] MEDS: ceFAZolin Sodium/Dextrose,Iso 2 GM/50 ML PIGGYBACK IV ×3 (05:32→23:29)
[2022-11-15 06:55] LABS: Hematocrit 26.9 % (42.0-52.0); Hemoglobin 8.7 g/dl (14.0-18.0); Mean Corpuscular HGB Conc 32.3 g/dl (31.0-36.0); Mean Corpuscular Hemoglobin 28.5 pg (27.0-33.0); Mean Corpuscular Volume 88.2 fL (80.0-98.0); Mean Platelet Volume 10.9 fL (9.4-12.4); Platelet Count 191 X10*3/uL (160-400); Red Blood Count 3.05 X10*6/uL (4.60-5.80); Red Cell Distribution Width 13.6 % (11.0-16.0); White Blood Count 11.9 X10*3/uL (4.8-10.8)
--- NOTE | 2022-11-15 07:00 | CA_ITS ---
Transthoracic Echocardiogram Patient (Last, First, Middle): Abdullahi Vo M Gender: Male Date of : 1955 Age: 67 Procedure Date: 11/15/2022 Procedure Type: Transthoracic Echocardiogram Location: S3E Height: 195.58 cm Weight: 123.38 kg BSA: 2.55 m2 Heart Rate: 65 bpm BP: 129 / 59 mmHg Cartridge Assembler: TRINO Referring MD: Jakob Campos DO Symptoms: MSSA bacteremia Study Quality: Technically Difficult ECG Rhythm: Sinus Conclusions: - The left ventricular systolic function is low normal. The calculated ejection fraction is 53% by biplane method. - No obvious valvular pathology seen on this study (based on available image quality). Findings Procedure Information Contrast agent, definity, is being given per protocol without apparent complications. Left Ventricle Normal left ventricular cavity size. There is moderately increased left ventricular wall thickness. The left ventricular systolic function is low normal. The calculated ejection fraction is 53% by biplane method. There is no evidence of regional wall motion abnormalities. E/E prime ratio is between 8 and 15 consistent with indeterminate filling pressures. Evidence suggests grade I (mild) diastolic dysfunction. Right Ventricle Normal right ventricular cavity size and systolic function. Atria Both atria are normal in size. Aortic Valve The aortic valve was not well visualized. There is no aortic valve stenosis. There is no aortic valve regurgitation. Mitral Valve The mitral valve appears normal. There is mild mitral annular calcification. There is no mitral valve regurgitation. There is no mitral valve stenosis. Pulmonic Valve The pulmonic valve is likely normal. Tricuspid Valve There is trace tricuspid valve regurgitation. There is no evidence of pulmonary hypertension. Great Vessels The asc aorta is normal in size. Venous The inferior vena cava is normal in size and collapses greater than 50% with inspiration. Pericardium/Pleural There is no evidence of pericardial effusion. Prior Study Comparison No prior study available for comparison. Recommendations, Care & Conclusions No obvious valvular pathology seen on this study. Consider a VLADISLAV if clinically appropriate. Measurements 2D Linear Measurements IVSd: 1.49 0.6-0.9/0.6-1.0 cm LVIDd: 4.30 3.9-5.3/4.2-5.9 cm LVIDd Index: 1.69 2.4-3.2/2.2-3.1 cm/m2 LVIDs: 2.98 2.0-3.6 cm LVPWd: 1.32 0.7-1.1 cm LA Diam: 4.40 2.7-3.8/3.0-4.0 cm LAIDs Index: 1.73 1.5-2.3 cm/m2 LV Mass: 291.12 67-162/88-224 g LV Mass Index: 114.16 43-95/49-115 g/m2 LVOT Diam: 2.40 3.0+(-)1.3 cm 2D Systolic Function EF 4C: 49.30 >55% EF 2C: 58.90 >55% EF BiP: 52.90 >55% Mitral Valve MV Pk E: 0.96 MV PK A: 1.11 MV Decel Time: 245.00 E/A: 0.90 E'Lateral: 7.83 E'Medial: 7.18 E/E' Med: 13.40 E/E' Lat: 12.30 PHT: 72.00 MVA PHT: 3.06 Decel Emmet: 3.92 Aortic Valve AoV Pk James: 1.92 AoV Mn James: 1.51 AoV VTI: 0.43 AoV Pk Grad: 15.00 Aov Mn Grad: 10.00 BEATRICE Cont.VTI: 2.80 LVOT LVOT Pk James: 1.32 LVOT Mn James: 0.93 LVOT VTI: 0.27 LVOT Pk Grad: 7.00 LVOT Mn Grad: 4.00 LVOT Diam: 2.40 LVOT Area: 4.52 Diastolic Function MV Pk E: 0.96 MV Pk A: 1.11 E/A: 0.90 E'Medial: 7.18 E/E' Med: 13.40 E' Laterial: 7.83 E/E' Lat: 12.30 Right Ventricle TAPSE (mm): 25.40 TVS' James: 10.20 Tricuspid Valve RA Press: 3.00 Great Vessels Aorta Sinus of Valsalva: 3.50 2.0-3.5 cm Ao Asc: 3.60 2.1-3.4 cm Pulmonary Valve PV Pk James: 1.26 Peak PV Grad: 6.00 Updated in Other Vendor System with Status of Final Angel Hines MD electronically signed on 11/15/2022 10:28:02 AM with status of Final
[2022-11-15 07:11] LABS: Alanine Aminotransferase 43 U/L (0-40); Alkaline Phosphatase 95 U/L (39-117); Anion Gap 14 (12-20); Aspartate Amino Transferase 50 U/L (5-37); Bilirubin Total 0.7 mg/dL (0.0-1.0); Blood Urea Nitrogen 42 mg/dL (9-16); Calcium 7.9 mg/dL (8.4-10.2); Carbon Dioxide 27 mmol/L (22-29); Chloride 97 mmol/L (96-108); Creatinine Clr Calc Pharmacy 76.6; Estimated Glomerular Filt Rate 52; Glucose Fasting 230 mg/dL (60-99); Potassium 3.7 mmol/L (3.3-5.1); Sodium 134 mmol/L (135-145); Total Protein 6.4 g/dL (6.5-8.0)
[2022-11-15 07:27] VITALS: BP 132/65; PULSE 68; RESP 16; TEMP 36.2; O2SAT 95
[2022-11-15 07:39] LABS: Glucose, Whole Blood 212 mg/dL (60-115)
[2022-11-15] MEDS: Insulin Lispro 100 UNIT/ML 3 ML VIAL SUBCUT ×4 (07:53→21:19)
[2022-11-15] MEDS: Losartan Potassium 25 MG TABLET PO (07:54)
[2022-11-15] MEDS: Atorvastatin Calcium 20 MG TABLET PO (07:54)
[2022-11-15] MEDS: Insulin Glargine,Hum.rec.anlog 100 UNIT/ML 10 ML VIAL 40 UNIT SUBCUT ×2 (07:54→21:18)
[2022-11-15] MEDS: Metoprolol Succinate ER 25 MG TAB.ER.24H 75 MG PO (07:54)
[2022-11-15] MEDS: Gabapentin 300 MG CAPSULE PO ×3 (07:54→21:18)
[2022-11-15] MEDS: 0.9 % Sodium Chloride Flush 3 ML SYRINGE IVFLUSH ×3 (07:55→21:21)
[2022-11-15] MEDS: hydroCHLOROthiazide 25 MG TABLET PO (07:55)
[2022-11-15] MEDS: amLODIPine Besylate 2.5 MG TABLET PO (07:55)
[2022-11-15] MEDS: methADONE HCl 20 MG/2 ML ORAL.CONC 45 MG PO (07:55)
[2022-11-15 09:39] LABS: Band Neutrophils Percent 2 % (3-5); Lymphocytes Absolute Manual 2.9 X10*3/uL (1.2-4.9); Lymphocytes Percent Manual 24 % (20-40); Metamyelocytes Absolute 0.4 X10*3/uL; Metamyelocytes Percent 3 %; Monocytes Percent Manual 8 % (2-11); Neutrophils Absolute Manual 7.7 X10*3/uL (2.0-8.3); Neutrophils Percent Manual 63 % (45-73)
[2022-11-15 09:42] LABS: Hypochromasia 1+ (5-14) /OIF; Platelet Estimate NORMAL (NORMAL); Platelet Morphology Comment NORMAL; RBC Morphology NOTED
--- NOTE | 2022-11-15 11:48 | PM.CNGS ---
History of Present Illness Consult details Consult date: 11/15/22 Narrative: Very complex 67-year-old gentleman with a history substance abuse diabetes renal insufficiency in iron deficiency anemia presented to the hospital with significantly swollen bilateral lower extremities. He developed swelling and blistering of that right foot. There has been a fair amount of serous drainage. In addition he has bilateral heel ulcerations. He has been quite concerned about this. He now presents to us for vascular evaluation. Of note he had been seen by the [facility] vascular team under the care of Dr. Pereyra. He now presents for evaluation. Review of Systems Review of Systems: Yes all other systems are reviewed and are negative Constitutional: Constitutional: Reports no additional constitutional complaints ENT: Reports Normal hearing present Cardiovascular: Cardiovascular: Denies chest pain, Denies chest pain at rest, Denies chest pain with activity and Denies pedal edema Respiratory: Respiratory: Denies cough Gastrointestinal: Gastrointestinal: Denies abdominal pain Musculoskeletal: Musculoskeletal: Denies abnormal gait, Denies muscle cramps and Denies radiating pain into limb Integumentary/Breasts: Skin/Breast: Denies skin ulcer and Denies wounds Neurologic: Reports Normal hearing present and Denies abnormal gait Psychiatric: Psychiatric: Reports no additional psychiatric complaints PMFSH Past Medical History Medical History B12 deficiency anemia Diabetes mellitus Hypertension Substance use disorder Social History Social History (System 11/13/22 @ 08:54 by Tammi Byrd) Household Members: Family Housing: House Do you presently have visiting nurse or other home services: No Alcohol intake: never Patient Tobacco Use Status: Never used Tobacco Substance Use Type: Crack/Cocaine and Heroin service: No Current occupational status: disabled Meds Allergies Allergy/AdvReac Type Severity Reaction Status Date / Time No Known Allergies Allergy Verified 11/13/22 08:54 [No Known Allergies*] Active Medications: Current Medications Acetaminophen (Acetaminophen 325 Mg Tablet) 650 mg PO Q6H PRN PRN Reason: Pain, Mild (Pain Scale 1-3) Last Admin: 11/14/22 10:52 Dose: 650 mg Amlodipine Besylate (Amlodipine Besylate 2.5 Mg Tablet) 2.5 mg PO DAILY [facility]; Protocol Last Admin: 11/15/22 07:55 Dose: 2.5 mg Atorvastatin Calcium (Atorvastatin Calcium 20 Mg Tablet) 20 mg PO DAILY [facility] Last Admin: 11/15/22 07:54 Dose: 20 mg Enoxaparin Sodium (Enoxaparin Sodium 40 Mg/0.4 Ml Syringe) 40 mg SUBCUT Q24H [facility] Last Admin: 11/15/22 00:05 Dose: 40 mg Gabapentin (Gabapentin 300 Mg Capsule) 300 mg PO TID [facility] Last Admin: 11/15/22 07:54 Dose: 300 mg Glucose (Glucose Gel 15 Gm Gel..Gram.) 15 gm PO Q15M PRN; Protocol PRN Reason: per Hypoglycemia Standing Ord. Hydrochlorothiazide (Hydrochlorothiazide 25 Mg Tablet) 25 mg PO DAILY [facility]; Protocol Last Admin: 11/15/22 07:55 Dose: 25 mg Dextrose (D10) 250 mls @ 750 mls/hr IV Q15M PRN; Protocol PRN Reason: per Hypoglycemia Standing Ord. Cefazolin Sodium/Dextrose (Ancef) 2 gm in 50 mls @ 100 mls/hr IV Q8H [facility] Last Infusion: 11/15/22 06:15 Dose: Infused Insulin Glargine (Insulin Glargine,Hum.Rec.Anlog 100 Unit/Ml 10 Ml Vial) 40 unit SUBCUT BID [facility] Last Admin: 11/15/22 07:54 Dose: 40 unit Insulin Human Lispro (Insulin Lispro 100 Unit/Ml 3 Ml Vial) 0 unit SUBCUT QIDACHS [facility]; Protocol Last Admin: 11/15/22 07:53 Dose: 4 unit Losartan Potassium (Losartan Potassium 25 Mg Tablet) 25 mg PO DAILY [facility]; Protocol Last Admin: 11/15/22 07:54 Dose: 25 mg Melatonin (Melatonin 3 Mg Tablet) 6 mg PO BEDTIME PRN PRN Reason: Insomnia Methadone HCl (Methadone Hcl 20 Mg/2 Ml Oral.Conc) 45 mg PO DAILY [facility] Last Admin: 11/15/22 07:55 Dose: 45 mg Metoprolol Succinate (Metoprolol Succinate Er 25 Mg Tab.Er.24h) 75 mg PO DAILY [facility]; Protocol Last Admin: 11/15/22 07:54 Dose: 75 mg Ondansetron HCl (Ondansetron Hcl 4 Mg/2 Ml Vial) 4 mg IVPUSH Q8H PRN PRN Reason: Nausea and Vomiting Oxycodone HCl (Oxycodone Hcl Immed Release 5 Mg Tablet) 5 mg PO Q4H PRN PRN Reason: Pain, Moderate (Pain Scale 4-6 Last Admin: 11/15/22 03:26 Dose: 5 mg Pharmacy Consult (Consult Rx Perform Med Rec) 1 each MISCELLANE ONCE PRN PRN Reason: Consult order Sodium Chloride (0.9 % Sodium Chloride Flush 3 Ml Syringe) 3 ml IVFLUSH QSHIFT [facility] Last Admin: 11/15/22 07:55 Dose: 3 ml Home Medications Medication Instructions Recorded Confirmed Last Taken Type atorvastatin 20 mg tablet 1 tab PO DAILY 10/13/21 11/12/22 11/10/22 History gabapentin 300 mg capsule 1 cap PO TID 10/13/21 11/12/22 11/10/22 History insulin aspart U-100 100 unit/mL 10 unit subcut TIDWM 10/13/21 11/12/22 11/10/22 History (3 mL) subcutaneous pen (Novolog FlexPen U-100 Insulin aspart) insulin detemir U-100 100 unit/mL 60 unit subcut BID 10/13/21 11/12/22 11/10/22 History subcutaneous solution (Levemir U-100 Insulin) metoprolol succinate 50 mg 75 mg PO DAILY 10/13/21 11/12/22 11/10/22 History tablet,extended release 24 hr methadone 10 mg/mL oral concentrate 45 mg PO DAILY 10/16/21 11/12/22 11/10/22 History amlodipine 2.5 mg tablet 1 tab PO DAILY 11/12/22 11/12/22 11/10/22 History hydrochlorothiazide 25 mg tablet 1 tab PO DAILY 11/12/22 11/12/22 11/10/22 History losartan 25 mg tablet 1 tab PO DAILY 11/12/22 11/12/22 11/10/22 History Physical Exam Vital Signs: Vital Signs: Last Vital Signs Temp 97.1 F 11/15/22 07:27 Pulse 68 11/15/22 07:27 Resp 16 11/15/22 07:27 BP 132/65 11/15/22 07:27 Pulse Ox 95 11/15/22 07:27 O2 Del Method 11/15/22 07:27 BMI result Body Mass Index 32.3 Const: General: cooperative, healthy appearing and comfortable Orientation/consciousness: oriented to person, oriented to place and oriented to time HEENT: Head: Yes normal to inspection Neck: Neck: Yes normal visual inspection Carotids: no bruits Chest: Chest palpation & inspection: normal inspection of the chest Resp: Effort & Inspection: normal respiratory effort and able to speak in complete sentences Auscultation: clear to auscultation bilaterally, no crackles, no rales, no rhonchi and no wheezes Cardio: Rate: regular rate Rhythm: regular rhythm Heart sounds: S1 normal heart sound present and S2 normal heart sound present Bruits: no carotid bruits Peripheral pulses: Peripheral pulses 2+ throughout GI: Inspection: Yes normal to inspection Skin: Other: Wounds: wounds noted Hair: normal Neuro: General: oriented to person, oriented to place and oriented to time Cranial nerves: Yes CN's II-XII intact bilaterally and Yes Normal hearing present Cognition (Neuro): normal cognition Motor exam (neuro): 5/5 motor strength present throughout Extrem: Other: venous exam: No significant superficial varicosities or spider telangiectasias, minimal edema General: No clubbing, No cyanosis and No edema Psych: Appearance: grossly normal Mental Status: mental status grossly normal Speech and movement: Normal speech and movement present Results Labs 11/15/22 05:57 11/15/22 05:57 Labs: Abnormal lab results 11/14/22 11/14/22 11/15/22 Range/Units 16:39 20:33 05:57 WBC (4.8-10.8) X10*3/uL RBC (4.60-5.80) X10*6/uL Hgb (14.0-18.0) g/dl Hct (42.0-52.0) % Band Neutrophils % (3-5) % Sodium 134 L (135-145) mmol/L BUN 42 H (9-16) mg/dL POC Glucose 399 H* 268 H (60-115) mg/dL Fasting Glucose 230 H (60-99) mg/dL Calcium 7.9 L (8.4-10.2) mg/dL AST 50 H (5-37) U/L ALT 43 H (0-40) U/L Total Protein 6.4 L (6.5-8.0) g/dL Albumin 2.0 L (3.5-5.0) g/dL 11/15/22 11/15/22 Range/Units 05:57 07:25 WBC 11.9 H (4.8-10.8) X10*3/uL RBC 3.05 L (4.60-5.80) X10*6/uL Hgb 8.7 L (14.0-18.0) g/dl Hct 26.9 L (42.0-52.0) % Band Neutrophils % 2 L (3-5) % Sodium (135-145) mmol/L BUN (9-16) mg/dL POC Glucose 212 H (60-115) mg/dL Fasting Glucose (60-99) mg/dL Calcium (8.4-10.2) mg/dL AST (5-37) U/L ALT (0-40) U/L Total Protein (6.5-8.0) g/dL Albumin (3.5-5.0) g/dL Short CBC 11/15/22 Range/Units 05:57 WBC 11.9 H (4.8-10.8) X10*3/uL Hgb 8.7 L (14.0-18.0) g/dl Hct 26.9 L (42.0-52.0) % Plt Count 191 (160-400) X10*3/uL BMP 11/15/22 05:57 Sodium 134 L Potassium 3.7 Chloride 97 Carbon Dioxide 27 BUN 42 H Creatinine 1.38 Calcium 7.9 L Liver Function 11/15/22 Range/Units 05:57 Total Bilirubin 0.7 (0.0-1.0) mg/dL AST 50 H (5-37) U/L ALT 43 H (0-40) U/L Alkaline Phosphatase 95 (39-117) U/L Albumin 2.0 L (3.5-5.0) g/dL Urine 11/11/22 Range/Units 22:05 Urine Color Yellow Urine Appearance Clear Urine pH 5.5 (5.0-9.0) Ur Specific [place] 1.020 (1.005-1.025) Urine Protein 30 (1+) H (Neg-Trace) mg/dL Urine Glucose (UA) >=1000 H (Negative) mg/dL All other labs normal. Assessment and Plan (1) PAD (peripheral artery disease): Status: Acute Patient reports that he has been surveilled with noninvasive testing and has been stable. (2) Lymphedema: Status: Acute Patient has significant swelling. There is an element of lymphedema that is clearly clinically evident. This can be treated as an outpatient. In addition he does need to be worked up for venous insufficiency as well. We can schedule this as an outpatient as well. At the current time continue local wound care and antibiotics as required. (3) Foot ulcer: Status: Acute Plan Blister was open with significant serous drainage. At the current time would recommend continued local wound care and he will require bilateral 6 in Ad[address] wraps all the way up the leg. Would recommend elevation as much as possible. Thank you for allowing us to assist in his care. Time Spent With Patient Time: Total time managing care of this patient today ____ minutes. Procedures Date of Service Date of Service: 11/15/22
[2022-11-15 11:49] LABS: Glucose, Whole Blood 212 mg/dL (60-115)
--- NOTE | 2022-11-15 12:01 | HO.PM.IMPN ---
Subjective Subjective Date of Service: 11/15/22 Interval History: no acute issues overnight. Feet remain and Demadex and he is unable to bear weight on them secondary to pain Review of Systems denies chest pain Denies shortness of breath Denies nausea vomiting diarrhea Denies fever chills Physical Exam Vital Signs: Vital Signs: Last Vital Signs Temp 97.1 F 11/15/22 07:27 Pulse 68 11/15/22 07:27 Resp 16 11/15/22 07:27 BP 132/65 11/15/22 07:27 Pulse Ox 95 11/15/22 07:27 O2 Del Method 11/15/22 07:27 BMI result Body Mass Index 32.3 Const: Other: awake alert no acute distress Resp: Other: clear to auscultation bilaterally no rales rhonchi or whee Cardio: Other: no S4; positive S1-S2; no S3 murmurs rubs or gallops Skin: Other: see ER photos Extrem: Other: no edema bilaterally Objective Data Active Medications Acetaminophen (Acetaminophen 325 Mg Tablet) 650 mg PO Q6H PRN PRN Reason: Pain, Mild (Pain Scale 1-3) Last Admin: 11/14/22 10:52 Dose: 650 mg Documented By: FAMILIA Amlodipine Besylate (Amlodipine Besylate 2.5 Mg Tablet) 2.5 mg PO DAILY [facility]; Protocol Last Admin: 11/15/22 07:55 Dose: 2.5 mg Documented By: FAMILIA Atorvastatin Calcium (Atorvastatin Calcium 20 Mg Tablet) 20 mg PO DAILY [facility] Last Admin: 11/15/22 07:54 Dose: 20 mg Documented By: FAMILIA Enoxaparin Sodium (Enoxaparin Sodium 40 Mg/0.4 Ml Syringe) 40 mg SUBCUT Q24H [facility] Last Admin: 11/15/22 00:05 Dose: 40 mg Documented By: ERIKA Gabapentin (Gabapentin 300 Mg Capsule) 300 mg PO TID [facility] Last Admin: 11/15/22 07:54 Dose: 300 mg Documented By: FAMILIA Glucose (Glucose Gel 15 Gm Gel..Gram.) 15 gm PO Q15M PRN; Protocol PRN Reason: per Hypoglycemia Standing Ord. Hydrochlorothiazide (Hydrochlorothiazide 25 Mg Tablet) 25 mg PO DAILY [facility]; Protocol Last Admin: 11/15/22 07:55 Dose: 25 mg Documented By: FAMILIA Dextrose (D10) 250 mls @ 750 mls/hr IV Q15M PRN; Protocol PRN Reason: per Hypoglycemia Standing Ord. Cefazolin Sodium/Dextrose (Ancef) 2 gm in 50 mls @ 100 mls/hr IV Q8H [facility] Last Infusion: 11/15/22 06:15 Dose: 0 mls/hr Documented By: ERIKA Insulin Glargine (Insulin Glargine,Hum.Rec.Anlog 100 Unit/Ml 10 Ml Vial) 40 unit SUBCUT BID [facility] Last Admin: 11/15/22 07:54 Dose: 40 unit Documented By: FAMILIA Insulin Human Lispro (Insulin Lispro 100 Unit/Ml 3 Ml Vial) 0 unit SUBCUT QIDACHS [facility]; Protocol Last Admin: 11/15/22 07:53 Dose: 4 unit Documented By: FAMILIA Losartan Potassium (Losartan Potassium 25 Mg Tablet) 25 mg PO DAILY [facility]; Protocol Last Admin: 11/15/22 07:54 Dose: 25 mg Documented By: FAMILIA Melatonin (Melatonin 3 Mg Tablet) 6 mg PO BEDTIME PRN PRN Reason: Insomnia Methadone HCl (Methadone Hcl 20 Mg/2 Ml Oral.Conc) 45 mg PO DAILY [facility] Last Admin: 11/15/22 07:55 Dose: 45 mg Documented By: FAMILIA Metoprolol Succinate (Metoprolol Succinate Er 25 Mg Tab.Er.24h) 75 mg PO DAILY [facility]; Protocol Last Admin: 11/15/22 07:54 Dose: 75 mg Documented By: FAMILIA Ondansetron HCl (Ondansetron Hcl 4 Mg/2 Ml Vial) 4 mg IVPUSH Q8H PRN PRN Reason: Nausea and Vomiting Oxycodone HCl (Oxycodone Hcl Immed Release 5 Mg Tablet) 5 mg PO Q4H PRN PRN Reason: Pain, Moderate (Pain Scale 4-6 Last Admin: 11/15/22 03:26 Dose: 5 mg Documented By: ERIKA Pharmacy Consult (Consult Rx Perform Med Rec) 1 each MISCELLANE ONCE PRN PRN Reason: Consult order Sodium Chloride (0.9 % Sodium Chloride Flush 3 Ml Syringe) 3 ml IVFLUSH QSHIFT [facility] Last Admin: 11/15/22 07:55 Dose: 3 ml Documented By: FAMILIA Labs 11/15/22 05:57 11/15/22 05:57 Labs: Laboratory Results - last 24 hr 11/14/22 11/14/22 11/15/22 16:39 20:33 05:57 MCV MCH MCHC RDW Plt Count MPV Immature Gran % (Auto) Neut % (Auto) Lymph % (Auto) [place] % (Auto) Eos % (Auto) Baso % (Auto) Lymph # (Auto) [place] # (Auto) Eos # (Auto) Baso # (Auto) Abs Immat Gran (auto) Absolute Neuts (auto) Absolute Nucleated RBC Nucleated RBC % (auto) Neutrophils % (Manual) Band Neutrophils % Lymphocytes % (Manual) Monocytes % (Manual) Metamyelocytes % Abs Neuts (Manual) Lymphocytes # (Manual) Monocytes # (Manual) Metamyelocytes # Platelet Estimate Plt Morphology Comment RBC Morphology Hypochromasia Anion Gap 14 Estim Creat Clear Calc 76.6 Estimated GFR 52 POC Glucose 399 H* 268 H Fasting Glucose 230 H Calcium 7.9 L Total Bilirubin 0.7 AST 50 H ALT 43 H Alkaline Phosphatase 95 Total Protein 6.4 L Albumin 2.0 L 11/15/22 11/15/22 11/15/22 05:57 07:25 11:39 MCV 88.2 MCH 28.5 MCHC 32.3 RDW 13.6 Plt Count 191 MPV 10.9 Immature Gran % (Auto) Cancelled Neut % (Auto) Cancelled Lymph % (Auto) Cancelled [place] % (Auto) Cancelled Eos % (Auto) Cancelled Baso % (Auto) Cancelled Lymph # (Auto) Cancelled [place] # (Auto) Cancelled Eos # (Auto) Cancelled Baso # (Auto) Cancelled Abs Immat Gran (auto) Cancelled Absolute Neuts (auto) Cancelled Absolute Nucleated RBC 0.000 Nucleated RBC % (auto) 0.0 Neutrophils % (Manual) 63 Band Neutrophils % 2 L Lymphocytes % (Manual) 24 Monocytes % (Manual) 8 Metamyelocytes % 3 Abs Neuts (Manual) 7.7 Lymphocytes # (Manual) 2.9 Monocytes # (Manual) 1.0 Metamyelocytes # 0.4 Platelet Estimate NORMAL Plt Morphology Comment NORMAL RBC Morphology NOTED Hypochromasia 1+ (5-14) Anion Gap Estim Creat Clear Calc Estimated GFR POC Glucose 212 H 212 H Fasting Glucose Calcium Total Bilirubin AST ALT Alkaline Phosphatase Total Protein Albumin Microbiology Microbiology Results: Microbiology 11/11/22 21:19 Blood Culture - Final Blood - Venous Staphylococcus aureus 11/11/22 20:59 Blood Culture - Final Blood - Venous Staphylococcus aureus Assessment and Plan (1) Sepsis: Status: Acute (2) Cellulitis of right leg: Status: Acute (3) Diabetes mellitus: Status: Acute (4) Hypertension: Status: Acute Plan This is a 67-year-old female with pertinent history of insulin-dependent diabetes mellitus, opioid and cocaine use disorder, history of diabetic foot ulcer with osteomyelitis, essential hypertension presents to the emergency department evaluation of fevers and chills. 1.Sepsis due to right lower extremity cellulitis and left lower extremity diabetic foot ulcer -Sepsis resolved -IV vanco/cefepime(4); Ancef 2 g IV q.8 hours(2) - blood cultures drawn; PICC line ordered - a total of 6 weeks of therapy for MSSA bacteremia 2.Uncontrolled insulin-dependent diabetes mellitus with hyperglycemia -poor control - increase Lantus to 40 BID and follow -continue lispro correctional scale 3.Cocaine and heroin use disorder -Consulted addiction team and CARE team -methadone as ordered 4.Essential hypertension -resume home meds -adjust as indicated Lovenox 40 mg daily Full code Pt requires ongoing inpatient hospitalization for IV antibiotics to treat osteomyelitis Time Spent With Patient Time: Total time managing care of this patient today ____ minutes. Quality Stroke Does the patient have a stroke diagnosis?: No VTE Prior VTE?: No VTE Risk Level:: Medical - moderate - high VTE Device Contraindication: Treatment Not Indicated VTE Drug Contraindication: N/A - Med Ordered
[2022-11-15] MEDS: Empagliflozin 10 MG TABLET PO (13:46)
--- NOTE | 2022-11-15 15:44 | MHC.CM.PN ---
Addendum entered by Angela Blackwell RN 11/15/22 15:53: REFERRALS TO [facility] Original Note: WILL NEED PICC AND IV ABX CURRENTLY AWAITING CULTURES
[2022-11-15 16:00] VITALS: BP 153/68; PULSE 69; RESP 20; TEMP 36.6; O2SAT 97
[2022-11-15 16:56] LABS: Glucose, Whole Blood 254 mg/dL (60-115)
[2022-11-15 19:35] LABS: Vancomycin Trough 9.8 mcg/mL (10.0-20.0)
[2022-11-15 20:00] VITALS: BP 137/69; PULSE 70; RESP 18; TEMP 36.7; O2SAT 97
[2022-11-15 20:56] LABS: Glucose, Whole Blood 264 mg/dL (60-115)
[2022-11-16 03:56] VITALS: BP 136/63; PULSE 66; RESP 18; TEMP 36.9; O2SAT 95
[2022-11-16] MEDS: oxyCODONE HCl Immed Release 5 MG TABLET PO ×3 (05:02→21:42)
[2022-11-16 06:32] LABS: Hematocrit 24.9 % (42.0-52.0); Mean Corpuscular HGB Conc 32.1 g/dl (31.0-36.0); Mean Corpuscular Hemoglobin 28.3 pg (27.0-33.0); Mean Platelet Volume 9.7 fL (9.4-12.4); Platelet Count 191 X10*3/uL (160-400); Red Blood Count 2.83 X10*6/uL (4.60-5.80); Red Cell Distribution Width 13.5 % (11.0-16.0); White Blood Count 10.7 X10*3/uL (4.8-10.8)
[2022-11-16] MEDS: ceFAZolin Sodium/Dextrose,Iso 2 GM/50 ML PIGGYBACK IV ×3 (06:38→21:39)
[2022-11-16 06:47] LABS: Alanine Aminotransferase 26 U/L (0-40); Albumin Level 1.9 g/dL (3.5-5.0); Alkaline Phosphatase 90 U/L (39-117); Anion Gap 11 (12-20); Aspartate Amino Transferase 41 U/L (5-37); Bilirubin Total 0.9 mg/dL (0.0-1.0); Blood Urea Nitrogen 37 mg/dL (9-16); Carbon Dioxide 30 mmol/L (22-29); Chloride 99 mmol/L (96-108); Creatinine Clr Calc Pharmacy 79.5; Estimated Glomerular Filt Rate 54; Glucose Fasting 127 mg/dL (60-99); Potassium 3.5 mmol/L (3.3-5.1); Sodium 136 mmol/L (135-145); Total Protein 6.4 g/dL (6.5-8.0)
[2022-11-16 07:41] VITALS: BP 145/67; PULSE 69; RESP 16; TEMP 36.6; O2SAT 95
[2022-11-16 07:51] LABS: Glucose, Whole Blood 130 mg/dL (60-115)
[2022-11-16 07:54] LABS: Band Neutrophils Percent 6 % (3-5); Eosinophils Absolute Manual 0.1 X10*3/uL (0.0-0.4); Eosinophils Percent Manual 1 % (0-4); Lymphocytes Percent Manual 19 % (20-40); Metamyelocytes Absolute 0.2 X10*3/uL; Metamyelocytes Percent 2 %; Monocytes Absolute Manual 0.9 X10*3/uL (0.1-1.2); Monocytes Percent Manual 8 % (2-11); Neutrophils Absolute Manual 7.5 X10*3/uL (2.0-8.3); Neutrophils Percent Manual 64 % (45-73)
[2022-11-16 07:57] LABS: Hypochromasia 1+ (5-14) /OIF; Platelet Estimate NORMAL (NORMAL); Platelet Morphology Comment NORMAL; Polychromasia 1+ (0-2) /OIF; RBC Morphology NOTED
[2022-11-16] MEDS: methADONE HCl 20 MG/2 ML ORAL.CONC 45 MG PO (09:06)
[2022-11-16] MEDS: Insulin Glargine,Hum.rec.anlog 100 UNIT/ML 10 ML VIAL 40 UNIT SUBCUT ×2 (09:06→21:39)
[2022-11-16] MEDS: Gabapentin 300 MG CAPSULE PO ×3 (09:07→21:39)
[2022-11-16] MEDS: amLODIPine Besylate 2.5 MG TABLET PO (09:07)
[2022-11-16] MEDS: Empagliflozin 10 MG TABLET PO (09:07)
[2022-11-16] MEDS: Metoprolol Succinate ER 25 MG TAB.ER.24H 75 MG PO (09:07)
[2022-11-16] MEDS: Losartan Potassium 25 MG TABLET PO (09:07)
[2022-11-16] MEDS: hydroCHLOROthiazide 25 MG TABLET PO (09:07)
[2022-11-16] MEDS: 0.9 % Sodium Chloride Flush 3 ML SYRINGE IVFLUSH ×3 (09:08→21:41)
[2022-11-16] MEDS: Atorvastatin Calcium 20 MG TABLET PO (09:08)
[2022-11-16 11:18] LABS: Glucose, Whole Blood 169 mg/dL (60-115)
[2022-11-16] MEDS: Insulin Lispro 100 UNIT/ML 3 ML VIAL SUBCUT ×3 (12:04→21:38)
--- NOTE | 2022-11-16 12:40 | HO.PM.IMPN ---
Subjective Subjective Date of Service: 11/16/22 Interval History: Doing well overnight. Cultures continue to be negative. Foot continues to drain Review of Systems denies chest pain Denies shortness of breath Denies nausea vomiting diarrhea Denies fever chills Physical Exam Vital Signs: Vital Signs: Last Vital Signs Temp 97.9 F 11/16/22 07:41 Pulse 69 11/16/22 07:41 Resp 16 11/16/22 07:41 BP 145/67 H 11/16/22 07:41 Pulse Ox 95 11/16/22 07:41 O2 Del Method 11/16/22 07:41 BMI result Body Mass Index 32.3 Const: Other: awake alert no acute distress Resp: Other: clear to auscultation bilaterally no rales rhonchi or whee Cardio: Other: no S4; positive S1-S2; no S3 murmurs rubs or gallops Skin: Other: see ER photos Extrem: Other: no edema bilaterally Objective Data Active Medications Acetaminophen (Acetaminophen 325 Mg Tablet) 650 mg PO Q6H PRN PRN Reason: Pain, Mild (Pain Scale 1-3) Last Admin: 11/14/22 10:52 Dose: 650 mg Documented By: FAMILIA Amlodipine Besylate (Amlodipine Besylate 2.5 Mg Tablet) 2.5 mg PO DAILY [facility]; Protocol Last Admin: 11/16/22 09:07 Dose: 2.5 mg Documented By: JAIME Atorvastatin Calcium (Atorvastatin Calcium 20 Mg Tablet) 20 mg PO DAILY [facility] Last Admin: 11/16/22 09:08 Dose: 20 mg Documented By: JAIME Empagliflozin (Empagliflozin 10 Mg Tablet) 10 mg PO DAILY [facility] Last Admin: 11/16/22 09:07 Dose: 10 mg Documented By: JAIME Enoxaparin Sodium (Enoxaparin Sodium 40 Mg/0.4 Ml Syringe) 40 mg SUBCUT Q24H [facility] Last Admin: 11/15/22 23:56 Dose: 40 mg Documented By: RAFA Gabapentin (Gabapentin 300 Mg Capsule) 300 mg PO TID [facility] Last Admin: 11/16/22 09:07 Dose: 300 mg Documented By: JAIME Glucose (Glucose Gel 15 Gm Gel..Gram.) 15 gm PO Q15M PRN; Protocol PRN Reason: per Hypoglycemia Standing Ord. Hydrochlorothiazide (Hydrochlorothiazide 25 Mg Tablet) 25 mg PO DAILY [facility]; Protocol Last Admin: 11/16/22 09:07 Dose: 25 mg Documented By: JAIME Dextrose (D10) 250 mls @ 750 mls/hr IV Q15M PRN; Protocol PRN Reason: per Hypoglycemia Standing Ord. Cefazolin Sodium/Dextrose (Ancef) 2 gm in 50 mls @ 100 mls/hr IV Q8H [facility] Last Infusion: 11/16/22 07:11 Dose: 0 mls/hr Documented By: JAIME Insulin Glargine (Insulin Glargine,Hum.Rec.Anlog 100 Unit/Ml 10 Ml Vial) 40 unit SUBCUT BID [facility] Last Admin: 11/16/22 09:06 Dose: 40 unit Documented By: JAIME Insulin Human Lispro (Insulin Lispro 100 Unit/Ml 3 Ml Vial) 0 unit SUBCUT QIDACHS [facility]; Protocol Last Admin: 11/16/22 12:04 Dose: 2 unit Documented By: JAIME Losartan Potassium (Losartan Potassium 25 Mg Tablet) 25 mg PO DAILY [facility]; Protocol Last Admin: 11/16/22 09:07 Dose: 25 mg Documented By: JAIME Melatonin (Melatonin 3 Mg Tablet) 6 mg PO BEDTIME PRN PRN Reason: Insomnia Methadone HCl (Methadone Hcl 20 Mg/2 Ml Oral.Conc) 45 mg PO DAILY [facility] Last Admin: 11/16/22 09:06 Dose: 45 mg Documented By: JAIME Metoprolol Succinate (Metoprolol Succinate Er 25 Mg Tab.Er.24h) 75 mg PO DAILY [facility]; Protocol Last Admin: 11/16/22 09:07 Dose: 75 mg Documented By: JAIME Ondansetron HCl (Ondansetron Hcl 4 Mg/2 Ml Vial) 4 mg IVPUSH Q8H PRN PRN Reason: Nausea and Vomiting Oxycodone HCl (Oxycodone Hcl Immed Release 5 Mg Tablet) 5 mg PO Q4H PRN PRN Reason: Pain, Moderate (Pain Scale 4-6 Last Admin: 11/16/22 05:02 Dose: 5 mg Documented By: TERE Pharmacy Consult (Consult Rx Perform Med Rec) 1 each MISCELLANE ONCE PRN PRN Reason: Consult order Sodium Chloride (0.9 % Sodium Chloride Flush 3 Ml Syringe) 3 ml IVFLUSH QSHIFT [facility] Last Admin: 11/16/22 09:08 Dose: 3 ml Documented By: JAIME Labs 11/16/22 06:16 11/16/22 06:16 Labs: Laboratory Results - last 24 hr 11/15/22 11/15/22 11/15/22 16:52 19:05 20:48 MCV MCH MCHC RDW Plt Count MPV Immature Gran % (Auto) Neut % (Auto) Lymph % (Auto) [place] % (Auto) Eos % (Auto) Baso % (Auto) Lymph # (Auto) [place] # (Auto) Eos # (Auto) Baso # (Auto) Abs Immat Gran (auto) Absolute Neuts (auto) Absolute Nucleated RBC Nucleated RBC % (auto) Neutrophils % (Manual) Band Neutrophils % Lymphocytes % (Manual) Monocytes % (Manual) Eosinophils % (Manual) Metamyelocytes % Abs Neuts (Manual) Lymphocytes # (Manual) Monocytes # (Manual) Eosinophils # (Manual) Metamyelocytes # Platelet Estimate Plt Morphology Comment RBC Morphology Polychromasia Hypochromasia Anion Gap Estim Creat Clear Calc Estimated GFR POC Glucose 254 H 264 H Fasting Glucose Calcium Total Bilirubin AST ALT Alkaline Phosphatase Total Protein Albumin Vancomycin Trough 9.8 L 11/16/22 11/16/22 11/16/22 06:16 06:16 07:38 MCV 88.0 MCH 28.3 MCHC 32.1 RDW 13.5 Plt Count 191 MPV 9.7 Immature Gran % (Auto) Cancelled Neut % (Auto) Cancelled Lymph % (Auto) Cancelled [place] % (Auto) Cancelled Eos % (Auto) Cancelled Baso % (Auto) Cancelled Lymph # (Auto) Cancelled [place] # (Auto) Cancelled Eos # (Auto) Cancelled Baso # (Auto) Cancelled Abs Immat Gran (auto) Cancelled Absolute Neuts (auto) Cancelled Absolute Nucleated RBC 0.000 Nucleated RBC % (auto) 0.0 Neutrophils % (Manual) 64 Band Neutrophils % 6 H Lymphocytes % (Manual) 19 L Monocytes % (Manual) 8 Eosinophils % (Manual) 1 Metamyelocytes % 2 Abs Neuts (Manual) 7.5 Lymphocytes # (Manual) 2.0 Monocytes # (Manual) 0.9 Eosinophils # (Manual) 0.1 Metamyelocytes # 0.2 Platelet Estimate NORMAL Plt Morphology Comment NORMAL RBC Morphology NOTED Polychromasia 1+ (0-2) Hypochromasia 1+ (5-14) Anion Gap 11 L Estim Creat Clear Calc 79.5 Estimated GFR 54 POC Glucose 130 H Fasting Glucose 127 H Calcium 8.0 L Total Bilirubin 0.9 AST 41 H ALT 26 Alkaline Phosphatase 90 Total Protein 6.4 L Albumin 1.9 L Vancomycin Trough 11/16/22 11:01 MCV MCH MCHC RDW Plt Count MPV Immature Gran % (Auto) Neut % (Auto) Lymph % (Auto) [place] % (Auto) Eos % (Auto) Baso % (Auto) Lymph # (Auto) [place] # (Auto) Eos # (Auto) Baso # (Auto) Abs Immat Gran (auto) Absolute Neuts (auto) Absolute Nucleated RBC Nucleated RBC % (auto) Neutrophils % (Manual) Band Neutrophils % Lymphocytes % (Manual) Monocytes % (Manual) Eosinophils % (Manual) Metamyelocytes % Abs Neuts (Manual) Lymphocytes # (Manual) Monocytes # (Manual) Eosinophils # (Manual) Metamyelocytes # Platelet Estimate Plt Morphology Comment RBC Morphology Polychromasia Hypochromasia Anion Gap Estim Creat Clear Calc Estimated GFR POC Glucose 169 H Fasting Glucose Calcium Total Bilirubin AST ALT Alkaline Phosphatase Total Protein Albumin Vancomycin Trough Microbiology Microbiology Results: Microbiology 11/15/22 08:49 Blood Culture - Preliminary Blood - Venous No growth after 24 hours. 11/15/22 08:49 Blood Culture - Preliminary Blood - Venous No growth after 24 hours. Assessment and Plan (1) Sepsis: Status: Acute (2) Diabetes mellitus: Status: Acute (3) Hypertension: Status: Acute Plan This is a 67-year-old female with pertinent history of insulin-dependent diabetes mellitus, opioid and cocaine use disorder, history of diabetic foot ulcer with osteomyelitis, essential hypertension presents to the emergency department evaluation of fevers and chills. 1.Sepsis due to right lower extremity cellulitis and left lower extremity diabetic foot ulcer -Sepsis resolved -IV vanco/cefepime(4); Ancef 2 g IV q.8 hours(3) - blood cultures drawn; PICC line ordered - a total of 6 weeks of therapy for MSSA bacteremia 2.Uncontrolled insulin-dependent diabetes mellitus with hyperglycemia -poor control - increase Lantus to 40 BID and follow -continue lispro correctional scale 3.Cocaine and heroin use disorder -Consulted addiction team and CARE team -methadone as ordered 4.Essential hypertension -resume home meds -adjust as indicated Lovenox 40 mg daily Full code Pt requires ongoing inpatient hospitalization for IV antibiotics to treat osteomyelitis Time Spent With Patient Time: Total time managing care of this patient today ____ minutes. Quality Stroke Does the patient have a stroke diagnosis?: No VTE Prior VTE?: No VTE Risk Level:: Medical - moderate - high VTE Device Contraindication: Treatment Not Indicated VTE Drug Contraindication: N/A - Med Ordered
[2022-11-16 15:29] VITALS: BP 147/66; PULSE 66; RESP 17; TEMP 36.2; O2SAT 95
[2022-11-16 16:26] LABS: Glucose, Whole Blood 238 mg/dL (60-115)
[2022-11-16 19:52] VITALS: BP 117/61; PULSE 88; RESP 17; TEMP 36.6; O2SAT 98
[2022-11-16 20:51] LABS: Glucose, Whole Blood 232 mg/dL (60-115)
[2022-11-17] MEDS: Enoxaparin Sodium 40 MG/0.4 ML SYRINGE SUBCUT (01:41)
[2022-11-17] MEDS: oxyCODONE HCl Immed Release 5 MG TABLET PO ×3 (01:41→21:31)
[2022-11-17 03:17] VITALS: BP 147/66; PULSE 70; RESP 17; TEMP 36.6; O2SAT 97
[2022-11-17] MEDS: ceFAZolin Sodium/Dextrose,Iso 2 GM/50 ML PIGGYBACK IV ×2 (05:32→17:02)
[2022-11-17 06:49] LABS: Estimated Glomerular Filt Rate 57
[2022-11-17 07:30] LABS: Glucose, Whole Blood 110 mg/dL (60-115)
[2022-11-17 08:00] VITALS: BP 143/63; PULSE 81; RESP 18; TEMP 36.6; O2SAT 95
[2022-11-17] MEDS: Gabapentin 300 MG CAPSULE PO ×3 (08:42→21:05)
[2022-11-17] MEDS: Empagliflozin 10 MG TABLET PO (08:42)
[2022-11-17] MEDS: methADONE HCl 20 MG/2 ML ORAL.CONC 45 MG PO (08:42)
[2022-11-17] MEDS: Atorvastatin Calcium 20 MG TABLET PO (08:42)
[2022-11-17] MEDS: amLODIPine Besylate 2.5 MG TABLET PO (08:42)
[2022-11-17] MEDS: Metoprolol Succinate ER 25 MG TAB.ER.24H 75 MG PO (08:42)
[2022-11-17] MEDS: Insulin Glargine,Hum.rec.anlog 100 UNIT/ML 10 ML VIAL 40 UNIT SUBCUT ×2 (08:42→21:05)
[2022-11-17] MEDS: hydroCHLOROthiazide 25 MG TABLET PO (08:43)
[2022-11-17] MEDS: Losartan Potassium 25 MG TABLET PO (08:43)
[2022-11-17] MEDS: 0.9 % Sodium Chloride Flush 3 ML SYRINGE IVFLUSH ×3 (08:48→21:05)
[2022-11-17 11:25] LABS: Glucose, Whole Blood 203 mg/dL (60-115)
--- NOTE | 2022-11-17 11:39 | P.PNVS_ITS ---
Subjective Subjective Date of Service: 11/17/22 Patient reports: no new complaints and feels better Interval history: Very pleasant 67-year-old gentleman for follow-up regarding nonhealing right foot ulcer. Overall appears to be doing significantly better. He reports that the leg has significantly decreased in edema and drainage has decreased. He is now for routine follow-up. Physical Exam Vital Signs: Vital Signs: Last Vital Signs Temp 97.8 F 11/17/22 08:00 Pulse 81 11/17/22 08:00 Resp 18 11/17/22 08:00 BP 143/63 H 11/17/22 08:00 Pulse Ox 95 11/17/22 08:00 O2 Del Method 11/17/22 03:17 BMI result Body Mass Index 32.3 Const: General: cooperative, healthy appearing and comfortable Orientation/consciousness: oriented to person, oriented to place and oriented to time HEENT: Head: Yes normal to inspection Neck: Neck: Yes normal visual inspection Carotids: no bruits Chest: Chest palpation & inspection: normal inspection of the chest Resp: Effort & Inspection: normal respiratory effort and able to speak in complete sentences Auscultation: clear to auscultation bilaterally, no crackles, no rales, no rhonchi and no wheezes Cardio: Rate: regular rate Rhythm: regular rhythm Heart sounds: S1 normal heart sound present and S2 normal heart sound present Bruits: no carotid bruits Peripheral pulses: Peripheral pulses 2+ throughout GI: Inspection: Yes normal to inspection Skin: Other: +1 to +2 edema. Right foot appears to be relatively clean. Wounds: no wounds Hair: normal Neuro: General: oriented to person, oriented to place and oriented to time Cranial nerves: Yes CN's II-XII intact bilaterally and Yes Normal hearing present Cognition (Neuro): normal cognition Motor exam (neuro): 5/5 motor strength present throughout Extrem: Other: venous exam: No significant superficial varicosities or spider telangiectasias, minimal edema General: No clubbing, No cyanosis and No edema Psych: Appearance: grossly normal Mental Status: mental status grossly normal Speech and movement: Normal speech and movement present Progress Note: A&P Assessment and plan (1) Foot ulcer: Status: Acute Assessment and Plan: In short foot ulcer appears to be doing relatively well. As we are able to control the edema I do think we will be able to heal this much better. We did discuss routine conservative measures including compression elevation and exercise. In addition to local dressings upon discharge I would recommend bilateral 6 in aces to be changed daily. He can follow up with me as an outpatient. (2) PAD (peripheral artery disease): Status: Acute Assessment and Plan: I do think his arterial status is stable (3) Lymphedema: Status: Acute Assessment and Plan: He does have significant swelling. There may be an element of venous insu fficiency which I would be happy to workup as an outpatient. In addition I do believe he has lymphedema. Once we do get this wound to heal he may benefit from lymphedema pumps. We can also coordinate that as an outpatient as well. Should there be any interval issues Dr. Wakefield and Dr. Mathur will be covering. He will follow up with us as an outpatient. Thank you for allowing us to assist in his care. Time Spent With Patient Time: Total time managing care of this patient today ____ minutes. Procedures Date of Service Date of Service: 11/17/22 Quality Stroke Does the patient have a stroke diagnosis?: No VTE Prior VTE?: No VTE Risk Level:: Medical - moderate - high VTE Device Contraindication: Treatment Not Indicated VTE Drug Contraindication: N/A - Med Ordered
[2022-11-17] MEDS: Insulin Lispro 100 UNIT/ML 3 ML VIAL SUBCUT ×3 (12:05→21:05)
--- NOTE | 2022-11-17 13:27 | HO.PM.IMPN ---
Subjective Subjective Date of Service: 11/17/22 Interval History: Right shoulder remains bothersome. Leg still painful and weeping. Adiel wrap on Review of Systems denies chest pain Denies shortness of breath Denies nausea vomiting diarrhea Denies fever chills Physical Exam Vital Signs: Vital Signs: Last Vital Signs Temp 97.8 F 11/17/22 08:00 Pulse 81 11/17/22 08:00 Resp 18 11/17/22 08:00 BP 143/63 H 11/17/22 08:00 Pulse Ox 95 11/17/22 08:00 O2 Del Method 11/17/22 03:17 BMI result Body Mass Index 32.3 Const: Other: awake alert no acute distress Resp: Other: clear to auscultation bilaterally no rales rhonchi or whee Cardio: Other: no S4; positive S1-S2; no S3 murmurs rubs or gallops Skin: Other: see ER photos Extrem: Other: no edema bilaterally Objective Data Active Medications Acetaminophen (Acetaminophen 325 Mg Tablet) 650 mg PO Q6H PRN PRN Reason: Pain, Mild (Pain Scale 1-3) Last Admin: 11/14/22 10:52 Dose: 650 mg Documented By: FAMILIA Amlodipine Besylate (Amlodipine Besylate 2.5 Mg Tablet) 2.5 mg PO DAILY [facility]; Protocol Last Admin: 11/17/22 08:42 Dose: 2.5 mg Documented By: JAIME Atorvastatin Calcium (Atorvastatin Calcium 20 Mg Tablet) 20 mg PO DAILY [facility] Last Admin: 11/17/22 08:42 Dose: 20 mg Documented By: JAIME Empagliflozin (Empagliflozin 10 Mg Tablet) 10 mg PO DAILY [facility] Last Admin: 11/17/22 08:42 Dose: 10 mg Documented By: JAIME Enoxaparin Sodium (Enoxaparin Sodium 40 Mg/0.4 Ml Syringe) 40 mg SUBCUT Q24H [facility] Last Admin: 11/17/22 01:41 Dose: 40 mg Documented By: ERIKA Gabapentin (Gabapentin 300 Mg Capsule) 300 mg PO TID [facility] Last Admin: 11/17/22 08:42 Dose: 300 mg Documented By: JAIME Glucose (Glucose Gel 15 Gm Gel..Gram.) 15 gm PO Q15M PRN; Protocol PRN Reason: per Hypoglycemia Standing Ord. Hydrochlorothiazide (Hydrochlorothiazide 25 Mg Tablet) 25 mg PO DAILY [facility]; Protocol Last Admin: 11/17/22 08:43 Dose: 25 mg Documented By: JAIME Dextrose (D10) 250 mls @ 750 mls/hr IV Q15M PRN; Protocol PRN Reason: per Hypoglycemia Standing Ord. Cefazolin Sodium/Dextrose (Ancef) 2 gm in 50 mls @ 100 mls/hr IV Q8H [facility] Last Infusion: 11/17/22 06:02 Dose: 0 mls/hr Documented By: ERIKA Insulin Glargine (Insulin Glargine,Hum.Rec.Anlog 100 Unit/Ml 10 Ml Vial) 40 unit SUBCUT BID [facility] Last Admin: 11/17/22 08:42 Dose: 40 unit Documented By: JAIME Insulin Human Lispro (Insulin Lispro 100 Unit/Ml 3 Ml Vial) 0 unit SUBCUT QIDACHS [facility]; Protocol Last Admin: 11/17/22 12:05 Dose: 4 unit Documented By: JAIME Losartan Potassium (Losartan Potassium 25 Mg Tablet) 25 mg PO DAILY [facility]; Protocol Last Admin: 11/17/22 08:43 Dose: 25 mg Documented By: JAIME Melatonin (Melatonin 3 Mg Tablet) 6 mg PO BEDTIME PRN PRN Reason: Insomnia Methadone HCl (Methadone Hcl 20 Mg/2 Ml Oral.Conc) 45 mg PO DAILY [facility] Last Admin: 11/17/22 08:42 Dose: 45 mg Documented By: JAIME Methylprednisolone Sodium Succinate (Methylprednisolone Sod Succ 125 Mg/2 Ml Vial) 125 mg IVPUSH ONCE ONE Stop: 11/17/22 13:27 Metoprolol Succinate (Metoprolol Succinate Er 25 Mg Tab.Er.24h) 75 mg PO DAILY [facility]; Protocol Last Admin: 11/17/22 08:42 Dose: 75 mg Documented By: JAIME Ondansetron HCl (Ondansetron Hcl 4 Mg/2 Ml Vial) 4 mg IVPUSH Q8H PRN PRN Reason: Nausea and Vomiting Oxycodone HCl (Oxycodone Hcl Immed Release 5 Mg Tablet) 5 mg PO Q4H PRN PRN Reason: Pain, Moderate (Pain Scale 4-6 Last Admin: 11/17/22 10:42 Dose: 5 mg Documented By: JAIME Pharmacy Consult (Consult Rx Perform Med Rec) 1 each MISCELLANE ONCE PRN PRN Reason: Consult order Sodium Chloride (0.9 % Sodium Chloride Flush 3 Ml Syringe) 3 ml IVFLUSH QSHIFT [facility] Last Admin: 11/17/22 08:48 Dose: 3 ml Documented By: JAIME Labs 11/16/22 06:16 11/17/22 05:26 Labs: Laboratory Results - last 24 hr 11/16/22 11/16/22 11/17/22 16:22 20:44 05:26 Estim Creat Clear Calc 84.0 Estimated GFR 57 POC Glucose 238 H 232 H 11/17/22 11/17/22 07:25 11:15 Estim Creat Clear Calc Estimated GFR POC Glucose 110 203 H Microbiology Microbiology Results: Microbiology 11/15/22 08:49 Blood Culture - Preliminary Blood - Venous No growth after 48 hours. 11/15/22 08:49 Blood Culture - Preliminary Blood - Venous No growth after 48 hours. Assessment and Plan (1) Cellulitis of right leg: Status: Acute (2) Sepsis: Status: Acute (3) Diabetes mellitus: Status: Acute Plan This is a 67-year-old female with pertinent history of insulin-dependent diabetes mellitus, opioid and cocaine use disorder, history of diabetic foot ulcer with osteomyelitis, essential hypertension presents to the emergency department evaluation of fevers and chills. 1.Sepsis due to right lower extremity cellulitis and left lower extremity diabetic foot ulcer -Sepsis resolved - Ancef 2 g IV q.8 hours() - blood cultures drawn negative times 48 hours PICC line ordered - a total of 6 weeks of therapy for MSSA bacteremia 2.Uncontrolled insulin-dependent diabetes mellitus with hyperglycemia -poor control - increase Lantus to 40 BID and follow -continue lispro correctional scale 3.Cocaine and heroin use disorder -Consulted addiction team and CARE team -methadone as ordered 4.Essential hypertension -resume home meds -adjust as indicated Lovenox 40 mg daily Full code Pt requires ongoing inpatient hospitalization for IV antibiotics to treat osteomyelitis Time Spent With Patient Time: Total time managing care of this patient today ____ minutes. Quality Stroke Does the patient have a stroke diagnosis?: No VTE Prior VTE?: No VTE Risk Level:: Medical - moderate - high VTE Device Contraindication: Treatment Not Indicated VTE Drug Contraindication: N/A - Med Ordered
--- NOTE | 2022-11-17 16:06 | P.CDIM_ITS ---
PROVIDER RESPONSE TEXT: To clarify, the appropriate diagnosis supported by the clinical indicators: Diagnosis was present on admission and is still being monitored, evaluated, or treated QUERY TEXT: PHYSICIAN'S DOCUMENTATION REQUEST Date of Query: 11/14/2022 02:38 PM EST Patient Name: Abdullahi Vo Admit Date: 11/12/2022 Dear Jakob Campos, A review of the medical record indicates additional documentation may be needed. Please review below and update the documentation accordingly. Clinical Indicators: The diagnosis of Osteomyelitis was documented on 11/14/22 but is not consistently noted in subsequent d ocumentation. CT lower extremity 11/12/22:LEFT LOWER LE. Circumferential subcutaneous edema, most prominent laterally. Focal soft tissue ulceration/subcutaneous air along the lateral aspect of the posterior calcaneus. Findings are consistent with acute cellulitis. No organized fluid collection or peripherally enhancing fluid collection to suggest abscess formation. No significant adjacent periosteal reaction or cortical erosion to suggest calcaneal osteomyelitis. Please clarify the following: Diagnosis was present on admission and is now resolved Diagnosis was present on admission and is still being monitored, evaluated, or treated Diagnosis was ruled out Diagnosis is still a likely, suspected, probable diagnosis Other (explain) Clinically unable to determine (explain) Thank you, Mel Gomez RN Use of terms such as suspected, likely, concern for, or probable (associated with a specific diagnosi s that is being evaluated, monitored, or treated as if it exists) are acceptable and can be coded in the inpatient se tting, when documented at the time of discharge. Please use your independent medical judgment in providing your response. THIS QUERY IS PART OF THE PERMANENT MEDICAL RECORD
--- NOTE | 2022-11-17 16:32 | P.PICC_ITS ---
PICC Line Insertion NPICC Diagnosis: foot wounds Indication: [facility] antibiotics needed Pertinent Labs: reviewed Technique: Following informed consent including risks, benefits and alternatives and using sterile technique including cap and mask, sterile gown, glove and drape, the left arm was prepped and draped in the usual sterile fashion of full barrier technique with CHG. Following completion of [place] Protocol the skin and soft tissues were anesthetized with 1% Lidocaine plain. Using ultrasound guidance, left basilic vein access was attempted unsuccessfully. Left brachial vein access was obtained on first attempt. Over an 0.018 wire through peel-away sheath, a 4FR single lumen PASV PICC line was positioned. Catheter length is 49 CM internal length, at the 0 CM rosie--external length, for a total trimmed length of 49 CM. The procedure was performed in S272. Tip verification was performed by Kody Gilliam with Sherlock 3CG. Tip located in SVC. Ultrasound was used to document vein patency and for needle entry. A formal ultrasound picture and cardiac rhythm strip was recorded. [employer] Operator has released the line for use and it is currently dressed with a StatLock, Tegaderm, and CHG disc. Verification has been performed for blood return and line patency. (Permission obtained from Dr Hughes and Dr Campos to place this PICC once 48 hour blood cultures are negative.) Arm Circumference: 35 CM Equipment: [employer] PowerPICC SOLO Catheter Type: 4FR single lumen PASV PICC Lot #: [id number]
[2022-11-17 16:36] LABS: Glucose, Whole Blood 208 mg/dL (60-115)
[2022-11-17 16:58] VITALS: BP 172/79; PULSE 64; RESP 20; TEMP 37; O2SAT 95
[2022-11-17] MEDS: methylPREDNISolone Sod Succ 125 MG/2 ML VIAL IVPUSH (17:01)
[2022-11-17 19:35] VITALS: BP 164/73; PULSE 62; RESP 20; TEMP 36.3; O2SAT 95
[2022-11-17 20:19] LABS: Alanine Aminotransferase 27 U/L (0-40); Alkaline Phosphatase 105 U/L (39-117); Anion Gap 13 (12-20); Aspartate Amino Transferase 69 U/L (5-37); Bilirubin Total 0.5 mg/dL (0.0-1.0); Blood Urea Nitrogen 30 mg/dL (9-16); Calcium 8.2 mg/dL (8.4-10.2); Carbon Dioxide 30 mmol/L (22-29); Chloride 97 mmol/L (96-108); Creatinine Clr Calc Pharmacy 80.7; Estimated Glomerular Filt Rate 55; Glucose Fasting 259 mg/dL (60-99); Potassium 4.5 mmol/L (3.3-5.1); Sodium 135 mmol/L (135-145); Total Protein 7.4 g/dL (6.5-8.0)
[2022-11-17 20:54] LABS: Glucose, Whole Blood 272 mg/dL (60-115)
[2022-11-17] MEDS: 0.9 % Sodium Chloride Flush 10 ML SYRINGE 5 ML IVFLUSH (21:10)
[2022-11-17] MEDS: Melatonin 3 MG TABLET 6 MG PO (21:30)
[2022-11-17] MEDS: Acetaminophen 325 MG TABLET 650 MG PO (21:30)
[2022-11-18] MEDS: Enoxaparin Sodium 40 MG/0.4 ML SYRINGE SUBCUT (00:27)
[2022-11-18] MEDS: ceFAZolin Sodium/Dextrose,Iso 2 GM/50 ML PIGGYBACK IV ×3 (00:27→17:02)
[2022-11-18 03:39] VITALS: BP 143/73; PULSE 50; RESP 16; TEMP 35.9; O2SAT 93
[2022-11-18 06:12] LABS: MANUAL DIFF FLAG NO
[2022-11-18 06:17] LABS: Basophils Percent Auto 0.1 % (0-2); Hemoglobin 8.2 g/dl (14.0-18.0); Imm Gran Abs Auto 0.35 X10*3/uL (0.00-0.03); Imm Gran Pct Auto 3.9 % (0.0-0.4); Lymphocytes Absolute Auto 2.3 X10*3/uL (1.2-4.9); Lymphocytes Percent Auto 25.4 % (20-40); Mean Corpuscular HGB Conc 31.5 g/dl (31.0-36.0); Mean Corpuscular Hemoglobin 27.8 pg (27.0-33.0); Mean Corpuscular Volume 88.1 fL (80.0-98.0); Monocytes Absolute Auto 0.2 X10*3/uL (0.1-1.2); Monocytes Percent Auto 1.9 % (2-11); Neutrophils Absolute Auto 6.3 x10*3/uL (2.0-8.3); Neutrophils Percent Auto 68.7 % (45-73); Platelet Count 205 X10*3/uL (160-400); Red Blood Count 2.95 X10*6/uL (4.60-5.80); Red Cell Distribution Width 13.2 % (11.0-16.0); White Blood Count 9.1 X10*3/uL (4.8-10.8)
[2022-11-18 06:34] LABS: Creatinine Clr Calc Pharmacy 80.1; Estimated Glomerular Filt Rate 54
[2022-11-18 07:04] VITALS: BP 163/75; PULSE 60; RESP 18; TEMP 36.6; O2SAT 94
[2022-11-18 07:18] LABS: Glucose, Whole Blood 300 mg/dL (60-115)
[2022-11-18] MEDS: methADONE HCl 20 MG/2 ML ORAL.CONC 45 MG PO (07:58)
[2022-11-18] MEDS: Atorvastatin Calcium 20 MG TABLET PO (07:59)
[2022-11-18] MEDS: Metoprolol Succinate ER 25 MG TAB.ER.24H 75 MG PO (07:59)
[2022-11-18] MEDS: Losartan Potassium 25 MG TABLET PO (07:59)
[2022-11-18] MEDS: Gabapentin 300 MG CAPSULE PO ×3 (07:59→22:51)
[2022-11-18] MEDS: amLODIPine Besylate 2.5 MG TABLET PO (07:59)
[2022-11-18] MEDS: 0.9 % Sodium Chloride Flush 3 ML SYRINGE IVFLUSH ×3 (08:00→22:54)
[2022-11-18] MEDS: Insulin Glargine,Hum.rec.anlog 100 UNIT/ML 10 ML VIAL 40 UNIT SUBCUT (08:00)
[2022-11-18] MEDS: Insulin Lispro 100 UNIT/ML 3 ML VIAL SUBCUT ×4 (08:00→22:50)
[2022-11-18] MEDS: Empagliflozin 10 MG TABLET PO (08:00)
[2022-11-18] MEDS: hydroCHLOROthiazide 25 MG TABLET PO (08:00)
[2022-11-18] MEDS: 0.9 % Sodium Chloride Flush 10 ML SYRINGE 5 ML IVFLUSH ×2 (08:14→15:59)
[2022-11-18 11:07] LABS: Glucose, Whole Blood 354 mg/dL (60-115)
--- NOTE | 2022-11-18 11:46 | PC.NURSE ---
40 units of scheduled Latus given this AM, Order changed to 45units, additional 5 units given to pt at noon to reach total of 45units, per MD Maira.
[2022-11-18] MEDS: Insulin Glargine,Hum.rec.anlog 100 UNIT/ML 10 ML VIAL 45 UNIT SUBCUT ×2 (11:50→22:50)
--- NOTE | 2022-11-18 12:41 | HO.PM.IMPN ---
Subjective Subjective Date of Service: 11/18/22 Interval History: c/o R shoulder pain; X ray negative for fracture no fever R foot painful, swollen but improved Review of Systems Review of Systems: Yes all other systems are reviewed and are negative Physical Exam Vital Signs: Vital Signs: Last Vital Signs Temp 98 F 11/18/22 07:04 Pulse 60 11/18/22 07:04 Resp 18 11/18/22 07:04 BP 163/75 H 11/18/22 07:04 Pulse Ox 94 11/18/22 07:04 O2 Del Method 11/18/22 07:04 BMI result Body Mass Index 32.3 Gen: in no acute distress HEENT: sclera anicteric, moist mucus membranes Neck: supple Lungs: clear to auscultation bilaterally Heart: regular rate and rhythm, no murmurs Abd: soft, non-tender, non-distended Ext: 1+ leg edema, L heel ulcer, blister on dorsum of R foot, minimal erythema Skin: warm/well-perfused Neuro: alert and oriented x3, no focal findings Psych: appropriate affect Objective Data Active Medications Acetaminophen (Acetaminophen 325 Mg Tablet) 650 mg PO Q6H PRN PRN Reason: Pain, Mild (Pain Scale 1-3) Last Admin: 11/17/22 21:30 Dose: 650 mg Documented By: TERE Amlodipine Besylate (Amlodipine Besylate 2.5 Mg Tablet) 2.5 mg PO DAILY [facility]; Protocol Last Admin: 11/18/22 07:59 Dose: 2.5 mg Documented By: ERIN Atorvastatin Calcium (Atorvastatin Calcium 20 Mg Tablet) 20 mg PO DAILY [facility] Last Admin: 11/18/22 07:59 Dose: 20 mg Documented By: ERIN Empagliflozin (Empagliflozin 10 Mg Tablet) 10 mg PO DAILY [facility] Last Admin: 11/18/22 08:00 Dose: 10 mg Documented By: ERIN Enoxaparin Sodium (Enoxaparin Sodium 40 Mg/0.4 Ml Syringe) 40 mg SUBCUT Q24H [facility] Last Admin: 11/18/22 00:27 Dose: 40 mg Documented By: TERE Gabapentin (Gabapentin 300 Mg Capsule) 300 mg PO TID [facility] Last Admin: 11/18/22 07:59 Dose: 300 mg Documented By: ERIN Glucose (Glucose Gel 15 Gm Gel..Gram.) 15 gm PO Q15M PRN; Protocol PRN Reason: per Hypoglycemia Standing Ord. Hydrochlorothiazide (Hydrochlorothiazide 25 Mg Tablet) 25 mg PO DAILY [facility]; Protocol Last Admin: 11/18/22 08:00 Dose: 25 mg Documented By: ERIN Dextrose (D10) 250 mls @ 750 mls/hr IV Q15M PRN; Protocol PRN Reason: per Hypoglycemia Standing Ord. Cefazolin Sodium/Dextrose (Ancef) 2 gm in 50 mls @ 100 mls/hr IV Q8H [facility] Last Infusion: 11/18/22 08:33 Dose: 0 mls/hr Documented By: ERIN Insulin Glargine (Insulin Glargine,Hum.Rec.Anlog 100 Unit/Ml 10 Ml Vial) 45 unit SUBCUT BID [facility] Last Admin: 11/18/22 11:50 Dose: 5 unit Documented By: ERIN Comments: 40 units given this AM per order. Dose changed to 45units, 5 additional units given for a total 45units. Per MD Maira Insulin Human Lispro (Insulin Lispro 100 Unit/Ml 3 Ml Vial) 0 unit SUBCUT QIDACHS [facility]; Protocol Last Admin: 11/18/22 11:49 Dose: 10 unit Documented By: ERIN Losartan Potassium (Losartan Potassium 25 Mg Tablet) 25 mg PO DAILY [facility]; Protocol Last Admin: 11/18/22 07:59 Dose: 25 mg Documented By: ERIN Melatonin (Melatonin 3 Mg Tablet) 6 mg PO BEDTIME PRN PRN Reason: Insomnia Last Admin: 11/17/22 21:30 Dose: 6 mg Documented By: TERE Methadone HCl (Methadone Hcl 20 Mg/2 Ml Oral.Conc) 45 mg PO DAILY [facility] Last Admin: 11/18/22 07:58 Dose: 45 mg Documented By: ERIN Metoprolol Succinate (Metoprolol Succinate Er 25 Mg Tab.Er.24h) 75 mg PO DAILY [facility]; Protocol Last Admin: 11/18/22 07:59 Dose: 75 mg Documented By: ERIN Ondansetron HCl (Ondansetron Hcl 4 Mg/2 Ml Vial) 4 mg IVPUSH Q8H PRN PRN Reason: Nausea and Vomiting Oxycodone HCl (Oxycodone Hcl Immed Release 5 Mg Tablet) 5 mg PO Q4H PRN PRN Reason: Pain, Moderate (Pain Scale 4-6 Last Admin: 11/17/22 21:31 Dose: 5 mg Documented By: TERE Pharmacy Consult (Consult Rx Perform Med Rec) 1 each MISCELLANE ONCE PRN PRN Reason: Consult order Sodium Chloride (0.9 % Sodium Chloride Flush 3 Ml Syringe) 3 ml IVFLUSH QSHIFT [facility] Last Admin: 11/18/22 08:00 Dose: 3 ml Documented By: ERIN Sodium Chloride (0.9 % Sodium Chloride Flush 10 Ml Syringe) 5 ml IVFLUSH TID [facility] Last Admin: 11/18/22 08:14 Dose: 5 ml Documented By: ERIN Labs 11/18/22 05:42 11/18/22 05:42 Labs: Laboratory Results - last 24 hr 11/17/22 11/17/22 11/17/22 16:33 19:46 20:50 MCV MCH MCHC RDW Plt Count MPV Immature Gran % (Auto) Neut % (Auto) Lymph % (Auto) [place] % (Auto) Eos % (Auto) Baso % (Auto) Lymph # (Auto) [place] # (Auto) Eos # (Auto) Baso # (Auto) Abs Immat Gran (auto) Absolute Neuts (auto) Absolute Nucleated RBC Nucleated RBC % (auto) Anion Gap 13 Estim Creat Clear Calc 80.7 Estimated GFR 55 POC Glucose 208 H 272 H Fasting Glucose 259 H Calcium 8.2 L Total Bilirubin 0.5 AST 69 H ALT 27 Alkaline Phosphatase 105 B-Natriuretic Peptide Total Protein 7.4 Albumin 2.0 L 11/18/22 11/18/22 11/18/22 05:42 05:42 05:42 MCV 88.1 MCH 27.8 MCHC 31.5 RDW 13.2 Plt Count 205 MPV 10.0 Immature Gran % (Auto) 3.9 H Neut % (Auto) 68.7 Lymph % (Auto) 25.4 [place] % (Auto) 1.9 L Eos % (Auto) 0.0 Baso % (Auto) 0.1 Lymph # (Auto) 2.3 [place] # (Auto) 0.2 Eos # (Auto) 0.0 Baso # (Auto) 0.0 Abs Immat Gran (auto) 0.35 H Absolute Neuts (auto) 6.3 Absolute Nucleated RBC 0.000 Nucleated RBC % (auto) 0.0 Anion Gap Estim Creat Clear Calc 80.1 Estimated GFR 54 POC Glucose Fasting Glucose Calcium Total Bilirubin AST ALT Alkaline Phosphatase B-Natriuretic Peptide Cancelled Total Protein Albumin 11/18/22 11/18/22 07:03 10:59 MCV MCH MCHC RDW Plt Count MPV Immature Gran % (Auto) Neut % (Auto) Lymph % (Auto) [place] % (Auto) Eos % (Auto) Baso % (Auto) Lymph # (Auto) [place] # (Auto) Eos # (Auto) Baso # (Auto) Abs Immat Gran (auto) Absolute Neuts (auto) Absolute Nucleated RBC Nucleated RBC % (auto) Anion Gap Estim Creat Clear Calc Estimated GFR POC Glucose 300 H 354 H* Fasting Glucose Calcium Total Bilirubin AST ALT Alkaline Phosphatase B-Natriuretic Peptide Total Protein Albumin Microbiology Microbiology Results: Microbiology 11/15/22 08:49 Blood Culture - Preliminary Blood - Venous No growth after 48 hours. 11/15/22 08:49 Blood Culture - Preliminary Blood - Venous No growth after 48 hours. Assessment and Plan (1) Cellulitis of right leg: Status: Acute (2) Sepsis: Status: Acute (3) Diabetes mellitus: Status: Acute Plan d#7 67yo M with DM2, hx DFU + osteomyelitis, opioid + cocaine use disorder, HTN admitted for sepsis due to infected DFUs, found to have MSSA bacteremia # sepsis due to RLE cellulitis and LLE DFU with MSSA bacteremia - cefazolin via PICC line, 6 wk from negative culture which was 11/15, so end date of 12/27 # DM2, A1c 8.2 - increase basal insulin, continue correction-dose lispro + empagliflozin # cocaine + opioid use disorder - Recovery Team consulted, continue methadone # HTN - continue losartan + amlodipine + hCTZ + metoprolol # HLD - continue atorvastain # neuropathy - continue gabapentin # VTE ppx: LMWH # dispo: will need STR In my clinical judgment, the patient requires continued inpatient hospitalization for the following reasons: IV ABX Time Spent With Patient Time: Total time managing care of this patient today __40__ minutes. Quality Stroke Does the patient have a stroke diagnosis?: No VTE Prior VTE?: No VTE Risk Level:: Medical - moderate - high VTE Device Contraindication: Treatment Not Indicated VTE Drug Contraindication: N/A - Med Ordered
[2022-11-18 14:44] VITALS: BP 144/62; PULSE 58; RESP 19; TEMP 36.6; O2SAT 95
[2022-11-18 16:45] LABS: Glucose, Whole Blood 254 mg/dL (60-115)
[2022-11-18 20:00] VITALS: BP 141/63; PULSE 64; RESP 66; TEMP 36.4; O2SAT 95
[2022-11-18 20:40] LABS: Glucose, Whole Blood 338 mg/dL (60-115)
[2022-11-19] MEDS: Enoxaparin Sodium 40 MG/0.4 ML SYRINGE SUBCUT ×2 (00:56→23:11)
[2022-11-19] MEDS: Melatonin 3 MG TABLET 6 MG PO ×2 (00:56→19:48)
[2022-11-19] MEDS: ceFAZolin Sodium/Dextrose,Iso 2 GM/50 ML PIGGYBACK IV ×4 (00:56→23:11)
[2022-11-19 03:33] VITALS: BP 132/62; PULSE 57; RESP 16; TEMP 36.1; O2SAT 94
[2022-11-19 07:03] VITALS: BP 153/69; PULSE 56; RESP 20; TEMP 36; O2SAT 98
[2022-11-19 07:13] LABS: Glucose, Whole Blood 274 mg/dL (60-115)
[2022-11-19] MEDS: Insulin Lispro 100 UNIT/ML 3 ML VIAL SUBCUT ×4 (08:06→19:43)
[2022-11-19] MEDS: Insulin Glargine,Hum.rec.anlog 100 UNIT/ML 10 ML VIAL 45 UNIT SUBCUT (08:07)
[2022-11-19] MEDS: Losartan Potassium 25 MG TABLET PO (08:09)
[2022-11-19] MEDS: Gabapentin 300 MG CAPSULE PO ×3 (08:09→19:42)
[2022-11-19] MEDS: methADONE HCl 20 MG/2 ML ORAL.CONC 45 MG PO (08:09)
[2022-11-19] MEDS: Empagliflozin 10 MG TABLET PO (08:10)
[2022-11-19] MEDS: Atorvastatin Calcium 20 MG TABLET PO (08:10)
[2022-11-19] MEDS: amLODIPine Besylate 2.5 MG TABLET PO (08:10)
[2022-11-19] MEDS: hydroCHLOROthiazide 25 MG TABLET PO (08:10)
[2022-11-19] MEDS: 0.9 % Sodium Chloride Flush 3 ML SYRINGE IVFLUSH ×3 (08:13→19:50)
[2022-11-19] MEDS: 0.9 % Sodium Chloride Flush 10 ML SYRINGE 5 ML IVFLUSH ×3 (08:14→19:42)
[2022-11-19] MEDS: oxyCODONE HCl Immed Release 5 MG TABLET PO (08:21)
[2022-11-19] MEDS: Acetaminophen 325 MG TABLET 650 MG PO (08:22)
[2022-11-19 11:12] LABS: Glucose, Whole Blood 228 mg/dL (60-115)
--- NOTE | 2022-11-19 12:29 | P.PNIM_ITS ---
Subjective Subjective Date of Service: 11/19/22 Interval History: R shoulder pain improving no fever Review of Systems Review of Systems: Yes all other systems are reviewed and are negative Physical Exam Vital Signs: Vital Signs: Last Vital Signs Temp 96.8 F 11/19/22 07:03 Pulse 56 11/19/22 07:03 Resp 20 11/19/22 07:03 BP 153/69 H 11/19/22 07:03 Pulse Ox 98 11/19/22 07:03 O2 Del Method 11/19/22 07:03 BMI result Body Mass Index 32.3 Gen: in no acute distress HEENT: sclera anicteric, moist mucus membranes Neck: supple Lungs: clear to auscultation bilaterally Heart: regular rate and rhythm, no murmurs Abd: soft, non-tender, non-distended Ext: 1+ leg edema, L heel ulcer, blister on dorsum of R foot, minimal erythema Skin: warm/well-perfused Neuro: alert and oriented x3, no focal findings Psych: appropriate affect ? Objective Data Active Medications Acetaminophen (Acetaminophen 325 Mg Tablet) 650 mg PO Q6H PRN PRN Reason: Pain, Mild (Pain Scale 1-3) Last Admin: 11/19/22 08:22 Dose: 650 mg Documented By: BASILIO Amlodipine Besylate (Amlodipine Besylate 2.5 Mg Tablet) 2.5 mg PO DAILY [facility]; Protocol Last Admin: 11/19/22 08:10 Dose: 2.5 mg Documented By: BASILIO Atorvastatin Calcium (Atorvastatin Calcium 20 Mg Tablet) 20 mg PO DAILY [facility] Last Admin: 11/19/22 08:10 Dose: 20 mg Documented By: BASILIO Empagliflozin (Empagliflozin 10 Mg Tablet) 10 mg PO DAILY [facility] Last Admin: 11/19/22 08:10 Dose: 10 mg Documented By: BASILIO Enoxaparin Sodium (Enoxaparin Sodium 40 Mg/0.4 Ml Syringe) 40 mg SUBCUT Q24H [facility] Last Admin: 11/19/22 00:56 Dose: 40 mg Documented By: ARRON Gabapentin (Gabapentin 300 Mg Capsule) 300 mg PO TID [facility] Last Admin: 11/19/22 08:09 Dose: 300 mg Documented By: BASILIO Glucose (Glucose Gel 15 Gm Gel..Gram.) 15 gm PO Q15M PRN; Protocol PRN Reason: per Hypoglycemia Standing Ord. Hydrochlorothiazide (Hydrochlorothiazide 25 Mg Tablet) 25 mg PO DAILY [facility]; Protocol Last Admin: 11/19/22 08:10 Dose: 25 mg Documented By: BASILIO Dextrose (D10) 250 mls @ 750 mls/hr IV Q15M PRN; Protocol PRN Reason: per Hypoglycemia Standing Ord. Cefazolin Sodium/Dextrose (Ancef) 2 gm in 50 mls @ 100 mls/hr IV Q8H [facility] Last Infusion: 11/19/22 09:26 Dose: 0 mls/hr Documented By: BASILIO Insulin Glargine (Insulin Glargine,Hum.Rec.Anlog 100 Unit/Ml 10 Ml Vial) 50 unit SUBCUT BID [facility] Insulin Human Lispro (Insulin Lispro 100 Unit/Ml 3 Ml Vial) 0 unit SUBCUT QIDACHS [facility]; Protocol Last Admin: 11/19/22 11:40 Dose: 6 unit Documented By: AGUSTO Losartan Potassium (Losartan Potassium 25 Mg Tablet) 25 mg PO DAILY [facility]; Protocol Last Admin: 11/19/22 08:09 Dose: 25 mg Documented By: BASILIO Melatonin (Melatonin 3 Mg Tablet) 6 mg PO BEDTIME PRN PRN Reason: Insomnia Last Admin: 11/19/22 00:56 Dose: 6 mg Documented By: ARRON Methadone HCl (Methadone Hcl 20 Mg/2 Ml Oral.Conc) 45 mg PO DAILY [facility] Last Admin: 11/19/22 08:09 Dose: 45 mg Documented By: BASILIO Metoprolol Succinate (Metoprolol Succinate Er 25 Mg Tab.Er.24h) 75 mg PO DAILY [facility]; Protocol Last Admin: 11/19/22 11:55 Dose: Not Given Documented By: BASILIO Non-Admin Reason: Decreased Heart Rate Ondansetron HCl (Ondansetron Hcl 4 Mg/2 Ml Vial) 4 mg IVPUSH Q8H PRN PRN Reason: Nausea and Vomiting Oxycodone HCl (Oxycodone Hcl Immed Release 5 Mg Tablet) 5 mg PO Q4H PRN PRN Reason: Pain, Moderate (Pain Scale 4-6 Last Admin: 11/19/22 08:21 Dose: 5 mg Documented By: BASILIO Pharmacy Consult (Consult Rx Perform Med Rec) 1 each MISCELLANE ONCE PRN PRN Reason: Consult order Sodium Chloride (0.9 % Sodium Chloride Flush 3 Ml Syringe) 3 ml IVFLUSH QSHIFT [facility] Last Admin: 11/19/22 08:13 Dose: 3 ml Documented By: BASILIO Sodium Chloride (0.9 % Sodium Chloride Flush 10 Ml Syringe) 5 ml IVFLUSH TID [facility] Last Admin: 11/19/22 08:14 Dose: 5 ml Documented By: BASILIO Labs 11/18/22 05:42 11/18/22 05:42 Labs: Laboratory Results - last 24 hr 11/18/22 11/18/22 11/19/22 16:37 20:32 07:05 POC Glucose 254 H 338 H 274 H 11/19/22 11:00 POC Glucose 228 H Assessment and Plan (1) Cellulitis of right leg: Status: Acute (2) Diabetes mellitus: Status: Acute Plan d#8 67yo M with DM2, hx DFU + osteomyelitis, opioid + cocaine use disorder, HTN admitted for sepsis due to infected DFUs, found to have MSSA bacteremia # sepsis due to RLE cellulitis and LLE DFU with MSSA bacteremia - cefazolin via PICC line, 6 wk from negative culture which was 11/15, so end date of 12/27, ID ocnsult # DM2, A1c 8.2 - increase basal insulin + correction-dose lispro, continue empagliflozin # cocaine + opioid use disorder - Recovery Team consulted, continue methadone # HTN - continue losartan + amlodipine + hCTZ + metoprolol # HLD - continue atorvastain # neuropathy - continue gabapentin # VTE ppx: LMWH # dispo: will need STR In my clinical judgment, the patient requires continued inpatient hospitaliz ation for the following reasons: IV ABX, placement Time Spent With Patient Time: Total time managing care of this patient today __30__ minutes. Quality Stroke Does the patient have a stroke diagnosis?: No VTE Prior VTE?: No VTE Risk Level:: Medical - moderate - high VTE Device Contraindication: Treatment Not Indicated VTE Drug Contraindication: N/A - Med Ordered
[2022-11-19 15:05] VITALS: BP 138/66; PULSE 59; RESP 19; TEMP 36.6; O2SAT 91
[2022-11-19 16:20] LABS: Glucose, Whole Blood 199 mg/dL (60-115)
--- NOTE | 2022-11-19 17:41 | PC.NURSE ---
Assumed care of pt at 1500. At this time pt A&Ox4 per baseline. Pt denies pain. Urinal emptied. All needs met at this time, VSS, safety measures in place.
[2022-11-19 19:23] VITALS: BP 146/77; PULSE 63; RESP 16; TEMP 36.3; O2SAT 99
[2022-11-19 19:37] LABS: Glucose, Whole Blood 219 mg/dL (60-115)
[2022-11-19] MEDS: Insulin Glargine,Hum.rec.anlog 100 UNIT/ML 10 ML VIAL 50 UNIT SUBCUT (19:42)
[2022-11-20 03:25] VITALS: BP 171/70; PULSE 65; RESP 16; TEMP 36.8; O2SAT 95
[2022-11-20 06:50] LABS: Anion Gap 11 (12-20); Blood Urea Nitrogen 35 mg/dL (9-16); C Reactive Protein 6.45 mg/dL (< or = 0.50); Calcium 8.7 mg/dL (8.4-10.2); Carbon Dioxide 34 mmol/L (22-29); Chloride 98 mmol/L (96-108); Creatinine Clr Calc Pharmacy 96.2; Estimated Glomerular Filt Rate > 60; Glucose Random 139 mg/dL (60-115); Potassium 4.3 mmol/L (3.3-5.1); Sodium 139 mmol/L (135-145)
[2022-11-20 07:22] VITALS: BP 154/72; PULSE 69; RESP 18; TEMP 36.6; O2SAT 95
[2022-11-20 07:50] LABS: Glucose, Whole Blood 142 mg/dL (60-115)
[2022-11-20] MEDS: ceFAZolin Sodium/Dextrose,Iso 2 GM/50 ML PIGGYBACK IV ×2 (08:08→17:04)
[2022-11-20] MEDS: methADONE HCl 20 MG/2 ML ORAL.CONC 45 MG PO (08:08)
[2022-11-20] MEDS: Insulin Glargine,Hum.rec.anlog 100 UNIT/ML 10 ML VIAL 50 UNIT SUBCUT ×2 (08:08→21:37)
[2022-11-20] MEDS: Insulin Lispro 100 UNIT/ML 3 ML VIAL SUBCUT ×4 (08:08→21:37)
[2022-11-20] MEDS: Metoprolol Succinate ER 25 MG TAB.ER.24H 75 MG PO (08:09)
[2022-11-20] MEDS: Atorvastatin Calcium 20 MG TABLET PO (08:09)
[2022-11-20] MEDS: Empagliflozin 10 MG TABLET PO (08:09)
[2022-11-20] MEDS: amLODIPine Besylate 2.5 MG TABLET PO (08:09)
[2022-11-20] MEDS: Gabapentin 300 MG CAPSULE PO ×3 (08:09→21:37)
[2022-11-20] MEDS: hydroCHLOROthiazide 25 MG TABLET PO (08:09)
[2022-11-20] MEDS: Losartan Potassium 25 MG TABLET PO (08:18)
[2022-11-20 11:09] LABS: Glucose, Whole Blood 189 mg/dL (60-115)
--- NOTE | 2022-11-20 11:14 | P.PNIM_ITS ---
Subjective Subjective Date of Service: 11/20/22 Interval History: BCx from 11/15 positive on 11/19 no fever legs improved Review of Systems Review of Systems: Yes all other systems are reviewed and are negative Physical Exam Vital Signs: Vital Signs: Last Vital Signs Temp 97.9 F 11/20/22 07:22 Pulse 69 11/20/22 07:22 Resp 18 11/20/22 07:22 BP 154/72 H 11/20/22 07:22 Pulse Ox 95 11/20/22 07:22 O2 Del Method 11/20/22 07:22 BMI result Body Mass Index 32.3 Gen: in no acute distress HEENT: sclera anicteric, moist mucus membranes Neck: supple Lungs: clear to auscultation bilaterally Heart: regular rate and rhythm, no murmurs Abd: soft, non-tender, non-distended Ext: 1+ leg edema, L heel ulcer, blister on dorsum of R foot, minimal erythema Skin: warm/well-perfused Neuro: alert and oriented x3, no focal findings Psych: appropriate affect Objective Data Active Medications Acetaminophen (Acetaminophen 325 Mg Tablet) 650 mg PO Q6H PRN PRN Reason: Pain, Mild (Pain Scale 1-3) Last Admin: 11/19/22 08:22 Dose: 650 mg Documented By: BASILIO Amlodipine Besylate (Amlodipine Besylate 2.5 Mg Tablet) 2.5 mg PO DAILY [facility]; Protocol Last Admin: 11/20/22 08:09 Dose: 2.5 mg Documented By: CHRIS Atorvastatin Calcium (Atorvastatin Calcium 20 Mg Tablet) 20 mg PO DAILY [facility] Last Admin: 11/20/22 08:09 Dose: 20 mg Documented By: CHRIS Empagliflozin (Empagliflozin 10 Mg Tablet) 10 mg PO DAILY [facility] Last Admin: 11/20/22 08:09 Dose: 10 mg Documented By: CHRIS Enoxaparin Sodium (Enoxaparin Sodium 40 Mg/0.4 Ml Syringe) 40 mg SUBCUT Q24H [facility] Last Admin: 11/19/22 23:11 Dose: 40 mg Documented By: CHERI Gabapentin (Gabapentin 300 Mg Capsule) 300 mg PO TID [facility] Last Admin: 11/20/22 08:09 Dose: 300 mg Documented By: CHRIS Glucose (Glucose Gel 15 Gm Gel..Gram.) 15 gm PO Q15M PRN; Protocol PRN Reason: per Hypoglycemia Standing Ord. Hydrochlorothiazide (Hydrochlorothiazide 25 Mg Tablet) 25 mg PO DAILY [facility]; Protocol Last Admin: 11/20/22 08:09 Dose: 25 mg Documented By: CHRIS Dextrose (D10) 250 mls @ 750 mls/hr IV Q15M PRN; Protocol PRN Reason: per Hypoglycemia Standing Ord. Cefazolin Sodium/Dextrose (Ancef) 2 gm in 50 mls @ 100 mls/hr IV Q8H [facility] Last Infusion: 11/20/22 08:45 Dose: 0 mls/hr Documented By: CHRIS Insulin Glargine (Insulin Glargine,Hum.Rec.Anlog 100 Unit/Ml 10 Ml Vial) 50 unit SUBCUT BID [facility] Last Admin: 11/20/22 08:08 Dose: 50 unit Documented By: CHRIS Insulin Human Lispro (Insulin Lispro 100 Unit/Ml 3 Ml Vial) 0 unit SUBCUT QIDACHS [facility]; Protocol Last Admin: 11/20/22 08:08 Dose: 2 unit Documented By: CHRIS Lidocaine (Lidocaine 4 % Patch Adh..Patch) 1 patch TRANSDERMA DAILY [facility]; Protocol Losartan Potassium (Losartan Potassium 25 Mg Tablet) 25 mg PO DAILY [facility]; Protocol Last Admin: 11/20/22 08:18 Dose: 25 mg Documented By: CHRIS Melatonin (Melatonin 3 Mg Tablet) 6 mg PO BEDTIME PRN PRN Reason: Insomnia Last Admin: 11/19/22 19:48 Dose: 6 mg Documented By: CHERI Methadone HCl (Methadone Hcl 20 Mg/2 Ml Oral.Conc) 45 mg PO DAILY [facility] Last Admin: 11/20/22 08:08 Dose: 45 mg Documented By: CHRIS Metoprolol Succinate (Metoprolol Succinate Er 25 Mg Tab.Er.24h) 75 mg PO DAILY [facility]; Protocol Last Admin: 11/20/22 08:09 Dose: 75 mg Documented By: CHRIS Ondansetron HCl (Ondansetron Hcl 4 Mg/2 Ml Vial) 4 mg IVPUSH Q8H PRN PRN Reason: Nausea and Vomiting Pharmacy Consult (Consult Rx Perform Med Rec) 1 each MISCELLANE ONCE PRN PRN Reason: Consult order Sodium Chloride (0.9 % Sodium Chloride Flush 3 Ml Syringe) 3 ml IVFLUSH QSHIFT [facility] Last Admin: 11/20/22 07:35 Dose: Not Given Documented By: AVE-SOFFA Non-Admin Reason: See Note Sodium Chloride (0.9 % Sodium Chloride Flush 10 Ml Syringe) 5 ml IVFLUSH TID [facility] Last Admin: 11/20/22 07:35 Dose: Not Given Documented By: AVE-SOFFA Non-Admin Reason: See Note Labs 11/18/22 05:42 11/20/22 05:54 Labs: Laboratory Results - last 24 hr 11/19/22 11/19/22 11/20/22 16:17 19:26 05:54 Anion Gap 11 L Estim Creat Clear Calc 96.2 Estimated GFR > 60 POC Glucose 199 H 219 H Random Glucose 139 H Calcium 8.7 D C-Reactive Protein 6.45 H 11/20/22 11/20/22 07:20 11:02 Anion Gap Estim Creat Clear Calc Estimated GFR POC Glucose 142 H 189 H Random Glucose Calcium C-Reactive Protein Microbiology Microbiology Results: Microbiology 11/15/22 08:49 Blood Culture - Final Blood - Venous No growth after 5 days. 11/15/22 08:49 Blood Culture - Final Blood - Venous Staphylococcus aureus Assessment and Plan (1) Cellulitis of right leg: Status: Acute (2) Diabetes mellitus: Status: Acute Plan d#9 67yo M with DM2, hx DFU + osteomyelitis, opioid + cocaine use disorder, HTN admitted for sepsis due to infected DFUs, found to have MSSA bacteremia # sepsis due to RLE cellulitis and LLE DFU with MSSA bacteremia - cefazolin via PICC line which was placed on 11/17; on 11/19, 1 of 2 BCx from 11/15 turned positive for Staph aureus presumably MSSA. repeat BCx, 1 set from venipuncture and 1 set from PICC. consult ID. TTE from 11/15 no vegetations. # DM2, A1c 8.2 - basal insulin + correction-dose lispro, continue empagliflozin # cocaine + opioid use disorder - Recovery Team consulted, continue methadone # HTN - continue losartan + amlodipine + HCTZ + metoprolol # HLD - continue atorvastain # neuropathy - continue gabapentin # VTE ppx: LMWH # dispo: will need STR when bacteremia documented clear In my clinical judgment, the patient requires continued inpatient hospitalization for the following reasons: IV ABX, bacteremia Time Spent With Patient Time: Total time managing care of this patient today _40___ minutes. Quality Stroke Does the patient have a stroke diagnosis?: No VTE Prior VTE?: No VTE Risk Level:: Medical - moderate - high VTE Device Contraindication: Treatment Not Indicated VTE Drug Contraindication: N/A - Med Ordered
[2022-11-20] MEDS: Lidocaine 4 % Patch ADH..PATCH 1 PATCH TRANSDERMA (11:56)
--- NOTE | 2022-11-20 15:25 | MHC.CM.PN ---
per rounds pt to have a picc placed bed search in place
[2022-11-20 15:34] VITALS: BP 141/64; PULSE 63; RESP 17; TEMP 36.6; O2SAT 92
[2022-11-20 16:22] LABS: Glucose, Whole Blood 158 mg/dL (60-115)
[2022-11-20 19:29] VITALS: BP 139/62; PULSE 59; RESP 16; TEMP 36.6; O2SAT 95
[2022-11-20 20:44] LABS: Glucose, Whole Blood 158 mg/dL (60-115)
[2022-11-20] MEDS: 0.9 % Sodium Chloride Flush 10 ML SYRINGE 5 ML IVFLUSH (21:38)
[2022-11-20] MEDS: 0.9 % Sodium Chloride Flush 3 ML SYRINGE IVFLUSH (21:47)
[2022-11-21] MEDS: ceFAZolin Sodium/Dextrose,Iso 2 GM/50 ML PIGGYBACK IV ×3 (00:30→17:01)
[2022-11-21] MEDS: Enoxaparin Sodium 40 MG/0.4 ML SYRINGE SUBCUT (00:31)
[2022-11-21 03:42] VITALS: BP 155/67; PULSE 59; RESP 20; TEMP 36; O2SAT 93
[2022-11-21 07:16] VITALS: BP 144/66; PULSE 61; RESP 16; TEMP 36.6; O2SAT 94
[2022-11-21 07:42] LABS: Glucose, Whole Blood 92 mg/dL (60-115)
[2022-11-21] MEDS: Insulin Glargine,Hum.rec.anlog 100 UNIT/ML 10 ML VIAL 50 UNIT SUBCUT ×2 (08:37→21:30)
[2022-11-21] MEDS: methADONE HCl 20 MG/2 ML ORAL.CONC 45 MG PO (08:37)
[2022-11-21] MEDS: Lidocaine 4 % Patch ADH..PATCH 1 PATCH TRANSDERMA (08:37)
[2022-11-21] MEDS: Atorvastatin Calcium 20 MG TABLET PO (08:38)
[2022-11-21] MEDS: Empagliflozin 10 MG TABLET PO (08:38)
[2022-11-21] MEDS: amLODIPine Besylate 2.5 MG TABLET PO (08:38)
[2022-11-21] MEDS: Acetaminophen 325 MG TABLET 650 MG PO ×2 (08:39→21:37)
[2022-11-21] MEDS: hydroCHLOROthiazide 25 MG TABLET PO (08:39)
[2022-11-21] MEDS: Losartan Potassium 25 MG TABLET PO (08:39)
[2022-11-21] MEDS: Metoprolol Succinate ER 25 MG TAB.ER.24H 75 MG PO (08:49)
[2022-11-21] MEDS: Gabapentin 300 MG CAPSULE PO ×3 (10:12→21:31)
[2022-11-21 11:18] LABS: Glucose, Whole Blood 120 mg/dL (60-115)
--- NOTE | 2022-11-21 11:48 | P.PNIM_ITS ---
Subjective Subjective Date of Service: 11/21/22 Interval History: R shoulder improved No fever C/o pain of feet Review of Systems Review of Systems: Yes all other systems are reviewed and are negative Physical Exam Vital Signs: Vital Signs: Last Vital Signs Temp 97.8 F 11/21/22 07:16 Pulse 61 11/21/22 07:16 Resp 16 11/21/22 07:16 BP 144/66 H 11/21/22 07:16 Pulse Ox 94 11/21/22 07:16 O2 Del Method 11/21/22 07:16 BMI result Body Mass Index 32.3 Gen: in no acute distress HEENT: sclera anicteric, moist mucus membranes Neck: supple Lungs: clear to auscultation bilaterally Heart: regular rate and rhythm, no murmurs Abd: soft, non-tender, non-distended Ext: 1+ leg edema, L heel ulcer, blister on dorsum of R foot, erythema proximally Skin: warm/well-perfused Neuro: alert and oriented x3, no focal findings Psych: appropriate affect ? Objective Data Active Medications Acetaminophen (Acetaminophen 325 Mg Tablet) 650 mg PO Q6H PRN PRN Reason: Pain, Mild (Pain Scale 1-3) Last Admin: 11/21/22 08:39 Dose: 650 mg Documented By: ERIN Amlodipine Besylate (Amlodipine Besylate 2.5 Mg Tablet) 2.5 mg PO DAILY [facility]; Protocol Last Admin: 11/21/22 08:38 Dose: 2.5 mg Documented By: ERIN Atorvastatin Calcium (Atorvastatin Calcium 20 Mg Tablet) 20 mg PO DAILY [facility] Last Admin: 11/21/22 08:38 Dose: 20 mg Documented By: ERIN Empagliflozin (Empagliflozin 10 Mg Tablet) 10 mg PO DAILY [facility] Last Admin: 11/21/22 08:38 Dose: 10 mg Documented By: ERIN Enoxaparin Sodium (Enoxaparin Sodium 40 Mg/0.4 Ml Syringe) 40 mg SUBCUT Q24H [facility] Last Admin: 11/21/22 00:31 Dose: 40 mg Documented By: HENRY Gabapentin (Gabapentin 300 Mg Capsule) 300 mg PO TID [facility] Last Admin: 11/21/22 10:12 Dose: 300 mg Documented By: ERIN Glucose (Glucose Gel 15 Gm Gel..Gram.) 15 gm PO Q15M PRN; Protocol PRN Reason: per Hypoglycemia Standing Ord. Hydrochlorothiazide (Hydrochlorothiazide 25 Mg Tablet) 25 mg PO DAILY [facility]; Protocol Last Admin: 11/21/22 08:39 Dose: 25 mg Documented By: ERIN Dextrose (D10) 250 mls @ 750 mls/hr IV Q15M PRN; Protocol PRN Reason: per Hypoglycemia Standing Ord. Cefazolin Sodium/Dextrose (Ancef) 2 gm in 50 mls @ 100 mls/hr IV Q8H [facility] Last Infusion: 11/21/22 09:43 Dose: 0 mls/hr Documented By: ERIN Insulin Glargine (Insulin Glargine,Hum.Rec.Anlog 100 Unit/Ml 10 Ml Vial) 50 unit SUBCUT BID [facility] Last Admin: 11/21/22 08:37 Dose: 50 unit Documented By: ERIN Insulin Human Lispro (Insulin Lispro 100 Unit/Ml 3 Ml Vial) 0 unit SUBCUT QIDACHS [facility]; Protocol Last Admin: 11/21/22 08:35 Dose: Not Given Documented By: ERIN Non-Admin Reason: No Insulin Coverage Lidocaine (Lidocaine 4 % Patch Adh..Patch) 1 patch TRANSDERMA DAILY [facility]; Protocol Last Admin: 11/21/22 08:37 Dose: 1 patch Documented By: ERIN Losartan Potassium (Losartan Potassium 25 Mg Tablet) 25 mg PO DAILY [facility]; Protocol Last Admin: 11/21/22 08:39 Dose: 25 mg Documented By: ERIN Melatonin (Melatonin 3 Mg Tablet) 6 mg PO BEDTIME PRN PRN Reason: Insomnia Last Admin: 11/19/22 19:48 Dose: 6 mg Documented By: CHERI Methadone HCl (Methadone Hcl 20 Mg/2 Ml Oral.Conc) 45 mg PO DAILY [facility] Last Admin: 11/21/22 08:37 Dose: 45 mg Documented By: ERIN Metoprolol Succinate (Metoprolol Succinate Er 25 Mg Tab.Er.24h) 75 mg PO DAILY [facility]; Protocol Last Admin: 11/21/22 08:49 Dose: 75 mg Documented By: ERIN Ondansetron HCl (Ondansetron Hcl 4 Mg/2 Ml Vial) 4 mg IVPUSH Q8H PRN PRN Reason: Nausea and Vomiting Pharmacy Consult (Consult Rx Perform Med Rec) 1 each MISCELLANE ONCE PRN PRN Reason: Consult order Sodium Chloride (0.9 % Sodium Chloride Flush 3 Ml Syringe) 3 ml IVFLUSH QSHIFT [facility] Last Admin: 11/21/22 09:13 Dose: Not Given Documented By: ERIN Non-Admin Reason: IV Running Sodium Chloride (0.9 % Sodium Chloride Flush 10 Ml Syringe) 5 ml IVFLUSH TID S Last Admin: 11/21/22 09:42 Dose: Not Given Documented By: ERIN Non-Admin Reason: IV Running Labs 11/18/22 05:42 11/20/22 05:54 Labs: Laboratory Results - last 24 hr 11/20/22 11/20/22 11/21/22 16:16 20:31 07:14 POC Glucose 158 H 158 H 92 11/21/22 11:08 POC Glucose 120 H Microbiology Microbiology Results: Microbiology 11/15/22 08:49 Blood Culture - Final Blood - Venous No growth after 5 days. 11/15/22 08:49 Blood Culture - Final Blood - Venous Staphylococcus aureus Assessment and Plan (1) Cellulitis of right leg: Status: Acute (2) Diabetes mellitus: Status: Acute Plan d#10 67yo M with DM2, hx DFU + osteomyelitis, opioid + cocaine use disorder, HTN admitted for sepsis due to infected DFUs, found to have MSSA bacteremia # sepsis due to RLE cellulitis and LLE DFU with MSSA bacteremia - cefazolin via PICC line which was placed on 11/17; on 11/19, 1 of 2 BCx from 11/15 turned positive for Staph aureus presumably MSSA. repeat BCx, 1 set from venipuncture and 1 set from PICC done on 11/20. ID consultation. TTE from 11/15 no vegetations. - Wound Care consultation # DM2, A1c 8.2 - basal insulin + correction-dose lispro, continue empagliflozin # cocaine + opioid use disorder - Recovery Team consulted, continue methadone # HTN - continue losartan + amlodipine + HCTZ + metoprolol # HLD - continue atorvastain # neuropathy - continue gabapentin, add prn oxycodone # VTE ppx: LMWH # dispo: will need STR when bacteremia documented clear In my clinical judgment, the patient requires continued inpatient hospitalization for the following reasons: IV ABX, bacteremia Time Spent With Patient Time: Total time managing care of this patient today ___39_ minutes. Quality Stroke Does the patient have a stroke diagnosis?: No VTE Prior VTE?: No VTE Risk Level:: Medical - moderate - high VTE Device Contraindication: Treatment Not Indicated VTE Drug Contraindication: N/A - Med Ordered
--- NOTE | 2022-11-21 13:26 | P.CONWO_ITS ---
History of Present Illness Data of Consult Service Date: 11/21/22 Requesting physician: Ulices Rao Primary Care Provider: Corby Little MD [facility] Reason for consult: diabetic foot wounds [id number]: 67 year old male who was slated to come into wound care clinic recently but missed his appointment. He ended up in the hospital with bilateral lower extremity swelling and cellulitis. He was treated with IV antibiotics. Blood cultures on this admission showing MSSA, now on cefazolin He was seen here in consultation by Dr. Rivera regarding lymphedema and possible venous insufficiency. With Adiel wraps the swelling has improved and there is no further redness in his legs. He is however having copious drainage from the right foot, mostly serous in nature, associated with odor. Left calcaneus drainage and odor is also reported according to the patient, not improving from his perspective while on IV antibiotics. Right leg CT showing no osteomyelitis of calcaneus. Left leg CT showing nonspecific midfoot changes that might represent Charcot changes, though osteo not ruled out per radiology reading. Lots of maceration wet tissue surrounds the calcaneus is reported. Has reports history of diabetes and toe amputations. Review of Systems 2 Review of Systems: Eager to leave, wants to know if I can get him out of here - discussed how important the antibiotics are to save his life. Denies fever/chills, fair amount of pain right foot but bothered mostly by odor. Very proud that his leg swelling is improved. No chest pain or SOB reported. Tells me redness and swelling in legs is also better. [facility] Medical History B12 deficiency anemia Diabetes mellitus Hypertension Substance use disorder Social History (System 11/13/22 @ 08:54 by Tammi Byrd) Household Members: Family Housing: House Do you presently have visiting nurse or other home services: No Alcohol intake: never Patient Tobacco Use Status: Never used Tobacco Substance Use Type: Crack/Cocaine and Heroin service: No Current occupational status: disabled Meds Allergies Allergy/AdvReac Type Severity Reaction Status Date / Time No Known Allergies Allergy Verified 11/13/22 08:54 [No Known Allergies*] Active Medications: Current Medications Acetaminophen (Acetaminophen 325 Mg Tablet) 650 mg PO Q6H PRN PRN Reason: Pain, Mild (Pain Scale 1-3) Last Admin: 11/21/22 08:39 Dose: 650 mg Amlodipine Besylate (Amlodipine Besylate 2.5 Mg Tablet) 2.5 mg PO DAILY [facility]; Protocol Last Admin: 11/21/22 08:38 Dose: 2.5 mg Atorvastatin Calcium (Atorvastatin Calcium 20 Mg Tablet) 20 mg PO DAILY [facility] Last Admin: 11/21/22 08:38 Dose: 20 mg Empagliflozin (Empagliflozin 10 Mg Tablet) 10 mg PO DAILY [facility] Last Admin: 11/21/22 08:38 Dose: 10 mg Enoxaparin Sodium (Enoxaparin Sodium 40 Mg/0.4 Ml Syringe) 40 mg SUBCUT Q24H [facility] Last Admin: 11/21/22 00:31 Dose: 40 mg Gabapentin (Gabapentin 300 Mg Capsule) 300 mg PO TID [facility] Last Admin: 11/21/22 10:12 Dose: 300 mg Glucose (Glucose Gel 15 Gm Gel..Gram.) 15 gm PO Q15M PRN; Protocol PRN Reason: per Hypoglycemia Standing Ord. Hydrochlorothiazide (Hydrochlorothiazide 25 Mg Tablet) 25 mg PO DAILY [facility]; Protocol Last Admin: 11/21/22 08:39 Dose: 25 mg Dextrose (D10) 250 mls @ 750 mls/hr IV Q15M PRN; Protocol PRN Reason: per Hypoglycemia Standing Ord. Cefazolin Sodium/Dextrose (Ancef) 2 gm in 50 mls @ 100 mls/hr IV Q8H [facility] Last Infusion: 11/21/22 09:43 Dose: Infused Insulin Glargine (Insulin Glargine,Hum.Rec.Anlog 100 Unit/Ml 10 Ml Vial) 50 unit SUBCUT BID [facility] Last Admin: 11/21/22 08:37 Dose: 50 unit Insulin Human Lispro (Insulin Lispro 100 Unit/Ml 3 Ml Vial) 0 unit SUBCUT QIDACHS [facility]; Protocol Last Admin: 11/21/22 13:04 Dose: Not Given Lidocaine (Lidocaine 4 % Patch Adh..Patch) 1 patch TRANSDERMA DAILY [facility]; Prot ocol Last Admin: 11/21/22 08:37 Dose: 1 patch Losartan Potassium (Losartan Potassium 25 Mg Tablet) 25 mg PO DAILY [facility]; Protocol Last Admin: 11/21/22 08:39 Dose: 25 mg Melatonin (Melatonin 3 Mg Tablet) 6 mg PO BEDTIME PRN PRN Reason: Insomnia Last Admin: 11/19/22 19:48 Dose: 6 mg Methadone HCl (Methadone Hcl 20 Mg/2 Ml Oral.Conc) 45 mg PO DAILY [facility] Last Admin: 11/21/22 08:37 Dose: 45 mg Metoprolol Succinate (Metoprolol Succinate Er 25 Mg Tab.Er.24h) 75 mg PO DAILY [facility]; Protocol Last Admin: 11/21/22 08:49 Dose: 75 mg Ondansetron HCl (Ondansetron Hcl 4 Mg/2 Ml Vial) 4 mg IVPUSH Q8H PRN PRN Reason: Nausea and Vomiting Oxycodone HCl (Oxycodone Hcl Immed Release 5 Mg Tablet) 5 mg PO Q4H PRN PRN Reason: mod to sev pain Pharmacy Consult (Consult Rx Perform Med Rec) 1 each MISCELLANE ONCE PRN PRN Reason: Consult order Sodium Chloride (0.9 % Sodium Chloride Flush 3 Ml Syringe) 3 ml IVFLUSH QSHIFT [facility] Last Admin: 11/21/22 09:13 Dose: Not Given Sodium Chloride (0.9 % Sodium Chloride Flush 10 Ml Syringe) 5 ml IVFLUSH TID [facility] Last Admin: 11/21/22 09:42 Dose: Not Given Home Medications Medication Instructions Recorded Confirmed Last Taken Type atorvastatin 20 mg tablet 1 tab PO DAILY 10/13/21 11/12/22 11/10/22 History gabapentin 300 mg capsule 1 cap PO TID 10/13/21 11/12/22 11/10/22 History insulin aspart U-100 100 unit/mL 10 unit subcut TIDWM 10/13/21 11/12/22 11/10/22 History (3 mL) subcutaneous pen (Novolog FlexPen U-100 Insulin aspart) insulin detemir U-100 100 unit/mL 60 unit subcut BID 10/13/21 11/12/22 11/10/22 History subcutaneous solution (Levemir U-100 Insulin) metoprolol succinate 50 mg 75 mg PO DAILY 10/13/21 11/12/22 11/10/22 History tablet,extended release 24 hr methadone 10 mg/mL oral concentrate 45 mg PO DAILY 10/16/21 11/12/22 11/10/22 H istory amlodipine 2.5 mg tablet 1 tab PO DAILY 11/12/22 11/12/22 11/10/22 History hydrochlorothiazide 25 mg tablet 1 tab PO DAILY 11/12/22 11/12/22 11/10/22 History losartan 25 mg tablet 1 tab PO DAILY 11/12/22 11/12/22 11/10/22 History Physical Exam Vital Signs and Narrative: Vital Signs: Last Vital Signs Temp 97.8 F 11/21/22 07:16 Pulse 61 11/21/22 07:16 Resp 16 11/21/22 07:16 BP 144/66 H 11/21/22 07:16 Pulse Ox 94 11/21/22 07:16 O2 Del Method 11/21/22 07:16 BMI result Body Mass Index 32.3 Pulses difficult to manually palpate at the bedside in the setting of copious bilateral foot edema. Foot color is good, no pallor, no duskiness. Left calcaneus dermis is riddled with senescent material and is rather fluctuant. Eschar presents challenge in terms of assessing wound depth without ability to debride. Medial ulcer of calcaneus macerated from copious drainage, slough and n onviable, wet epithelium wipes away with relative ease, clear skin breakdown does not appear full thickness. Dorsal right foot wounds are deep, laden with slough, into which silver alginate is advanced manually. Surrounding tissue also macerated from excessive drainage. No purulence accompanying serous drainage. Deep ulcers might benefit from debridement of wet, sloughy subcu material to allow drainage strategies to work better. See plan. Results Labs 11/18/22 05:42 11/20/22 05:54 Labs: Laboratory Results - last 24 hr 11/20/22 11/20/22 11/21/22 16:16 20:31 07:14 POC Glucose 158 H 158 H 92 11/21/22 11:08 POC Glucose 120 H Assessment and Plan (1) Diabetic ulcer of left foot: Status: Acute (2) Type 2 diabetes mellitus with foot ulcer: Status: Acute Plan 67 year old male on IV cefazolin for MSSA bacteremia with likely source coming from (?) right dorsal foot infection. Edema from the bilateral lower extremities is significantly improved compared to admission and so Adiel wraps are working beautifully. For better drainage management strategies, consider silver alginate advanced into the dorsal right foot wounds and also left calcaneus, left medial calcaneus. Secondary dressing with Adiel wraps is most appropriate. Briefly discussed limitations of IV antibiotics in the absence of aggressive debridement to remove purulence and defer to hospitalist team as to whether surgical consultation is desired in this regard. Time Spent With Patient Time: Total time managing care of this patient today 20 minutes.
[2022-11-21 15:11] VITALS: BP 137/65; PULSE 58; RESP 18; TEMP 36.1; O2SAT 93
--- NOTE | 2022-11-21 15:51 | PM.CNGS ---
History of Present Illness Consult details Consult date: 11/21/22 Narrative: 67M who has multiple medical problems including DM, lymphedema, opiate abuse, who has been here in the hospital since November 12, 2022 for cellulitis of both lower extremities. He has been on IV antibiotics. He has had chronic edema as well and was apparently being followed by Vascular surgery in [facility] as well. He was noted to have drainage, purulent from his right foot where he had blisters. I have been asked to consult for need for debridement. He describes pain on both feet. Review of Systems Constitutional: Constitutional: Denies chills and Denies fever(s) Cardiovascular: Cardiovascular: Denies chest pain Gastrointestinal: Gastrointestinal: Denies abdominal pain Genitourinary: Genitourinary: Denies difficulty urinating Neurologic: Comments: beginning neuropathy of both feet PMFSH Past Medical History Medical History (Updated 11/28/22 @ 15:39 by Aj Mathur MD) Acute renal failure B12 deficiency anemia Diabetes mellitus DM foot Hyperkalemia Hypertension Substance use disorder Surgical History Surgical History (Updated 11/22/22 @ 11:35 by Willa Cam MD) H/O colonoscopy Social History Social History Household Members: Family Housing: House Do you presently have visiting nurse or other home services: No Alcohol intake: never Patient Tobacco Use Status: Never used Tobacco Second Hand Smoke Exposure: No Substance Use Type: Crack/Cocaine and Heroin service: No Current occupational status: disabled Meds Allergies Allergy/AdvReac Type Severity Reaction Status Date / Time No Known Allergies Allergy Verified 11/13/22 08:54 [No Known Allergies*] Active Medications: Current Medications Acetaminophen (Acetaminophen 325 Mg Tablet) 650 mg PO Q6H PRN PRN Reason: Pain, Mild (Pain Scale 1-3) Last Admin: 11/21/22 08:39 Dose: 650 mg Amlodipine Besylate (Amlodipine Besylate 2.5 Mg Tablet) 2.5 mg PO DAILY [facility]; Protocol Last Admin: 11/21/22 08:38 Dose: 2.5 mg Atorvastatin Calcium (Atorvastatin Calcium 20 Mg Tablet) 20 mg PO DAILY [facility] Last Admin: 11/21/22 08:38 Dose: 20 mg Empagliflozin (Empagliflozin 10 Mg Tablet) 10 mg PO DAILY [facility] Last Admin: 11/21/22 08:38 Dose: 10 mg Enoxaparin Sodium (Enoxaparin Sodium 40 Mg/0.4 Ml Syringe) 40 mg SUBCUT Q24H [facility] Last Admin: 11/21/22 00:31 Dose: 40 mg Gabapentin (Gabapentin 300 Mg Capsule) 300 mg PO TID [facility] Last Admin: 11/21/22 10:12 Dose: 300 mg Glucose (Glucose Gel 15 Gm Gel..Gram.) 15 gm PO Q15M PRN; Protocol PRN Reason: per Hypoglycemia Standing Ord. Hydrochlorothiazide (Hydrochlorothiazide 25 Mg Tablet) 25 mg PO DAILY [facility]; Protocol Last Admin: 11/21/22 08:39 Dose: 25 mg Dextrose (D10) 250 mls @ 750 mls/hr IV Q15M PRN; Protocol PRN Reason: per Hypoglycemia Standing Ord. Cefazolin Sodium/Dextrose (Ancef) 2 gm in 50 mls @ 100 mls/hr IV Q8H [facility] Last Infusion: 11/21/22 09:43 Dose: Infused Insulin Glargine (Insulin Glargine,Hum.Rec.Anlog 100 Unit/Ml 10 Ml Vial) 50 unit SUBCUT BID [facility] Last Admin: 11/21/22 08:37 Dose: 50 unit Insulin Human Lispro (Insulin Lispro 100 Unit/Ml 3 Ml Vial) 0 unit SUBCUT QIDACHS [facility]; Protocol Last Admin: 11/21/22 13:04 Dose: Not Given Lidocaine (Lidocaine 4 % Patch Adh..Patch) 1 patch TRANSDERMA DAILY [facility]; Protocol Last Admin: 11/21/22 08:37 Dose: 1 patch Losartan Potassium (Losartan Potassium 25 Mg Tablet) 25 mg PO DAILY [facility]; Protocol Last Admin: 11/21/22 08:39 Dose: 25 mg Melatonin (Melatonin 3 Mg Tablet) 6 mg PO BEDTIME PRN PRN Reason: Insomnia Last Admin: 11/19/22 19:48 Dose: 6 mg Methadone HCl (Methadone Hcl 20 Mg/2 Ml Oral.Conc) 45 mg PO DAILY [facility] Last Admin: 11/21/22 08:37 Dose: 45 mg Metoprolol Succinate (Metoprolol Succinate Er 25 Mg Tab.Er.24h) 75 mg PO DAILY [facility]; Protocol Last Admin: 11/21/22 08:49 Dose: 75 mg Ondansetron HCl (Ondansetron Hcl 4 Mg/2 Ml Vial) 4 mg IVPUSH Q8H PRN PRN Reason: Nausea and Vomiting Oxycodone HCl (Oxycodone Hcl Immed Release 5 Mg Tablet) 5 mg PO Q4H PRN PRN Reason: mod to sev pain Pharmacy Consult (Consult Rx Perform Med Rec) 1 each MISCELLANE ONCE PRN PRN Reason: Consult order Sodium Chloride (0.9 % Sodium Chloride Flush 3 Ml Syringe) 3 ml IVFLUSH QSHIFT [facility] Last Admin: 11/21/22 09:13 Dose: Not Given Sodium Chloride (0.9 % Sodium Chloride Flush 10 Ml Syringe) 5 ml IVFLUSH TID [facility] Last Admin: 11/21/22 09:42 Dose: Not Given Home Medications Medication Instructions Recorded Confirmed Last Taken Type atorvastatin 20 mg tablet 1 tab PO DAILY 10/13/21 11/12/22 11/10/22 History gabapentin 300 mg capsule 1 cap PO TID 10/13/21 11/12/22 11/10/22 History insulin aspart U-100 100 unit/mL 10 unit subcut TIDWM 10/13/21 11/12/22 11/10/22 History (3 mL) subcutaneous pen (Novolog FlexPen U-100 Insulin aspart) insulin detemir U-100 100 unit/mL 60 unit subcut BID 10/13/21 11/12/22 11/10/22 History subcutaneous solution (Levemir U-100 Insulin) metoprolol succinate 50 mg 75 mg PO DAILY 10/13/21 11/12/22 11/10/22 History tablet,extended release 24 hr methadone 10 mg/mL oral concentrate 45 mg PO DAILY 10/16/21 11/12/22 11/10/22 History amlodipine 2.5 mg tablet 1 tab PO DAILY 11/12/22 11/12/22 11/10/22 History hydrochlorothiazide 25 mg tablet 1 tab PO DAILY 11/12/22 11/12/22 11/10/22 History losartan 25 mg tablet 1 tab PO DAILY 11/12/22 11/12/22 11/10/22 History Physical Exam Vital Signs: Vital Signs: Last Vital Signs Temp 97 F 11/21/22 15:11 Pulse 58 11/21/22 15:11 Resp 18 11/21/22 15:11 BP 137/65 11/21/22 15:11 Pulse Ox 93 11/21/22 15:11 O2 Del Method 11/21/22 15:11 BMI result Body Mass Index 32.3 Const: General: comfortable and no acute distress Orientation/consciousness: patient oriented x3 Neck: Neck: Yes no lymphadenopathy Resp: Auscultation: clear to auscultation bilaterally Cardio: Rhythm: regular rhythm GI: Palpation (GI): Soft to palpation, nontender and no guarding Neuro: General: patient oriented x3 Extrem: Other: right foot with cellulitis, 2 open wound on the dorsum laterally, with purulent drainage, with note of thick fibrinois exudates within, tender; he has a thick callus/escahr on the heel on the left Results Labs 11/18/22 05:42 11/20/22 05:54 Labs: Abnormal lab results 11/20/22 11/20/22 11/21/22 Range/Units 16:16 20:31 11:08 POC Glucose 158 H 158 H 120 H (60-115) mg/dL Urine 11/11/22 Range/Units 22:05 Urine Color Yellow Urine Appearance Clear Urine pH 5.5 (5.0-9.0) Ur Specific [place] 1.020 (1.005-1.025) Urine Protein 30 (1+) H (Neg-Trace) mg/dL Urine Glucose (UA) >=1000 H (Negative) mg/dL All other labs normal. Assessment and Plan (1) Type 2 diabetes mellitus with foot ulcer: Status: Acute He has cellulitis of the right foot with 2 open wound with purulent discharge; he also has a thick eschar/callus on the left heel. I explained to him it may be best to do debridement ofboth feet in the OR udner anesthesia. I explained the risks of bleeding, infections, poor healing, persistence of infections, as well as the benefits and alterantives. He has given consent. I plan to take him to the OR tomorrow for debridement of both feet under some anesthesia. Time Spent With Patient Time: Total time managing care of this patient today ____ minutes. Procedures Date of Service Date of Service: 11/21/22
[2022-11-21] MEDS: 0.9 % Sodium Chloride Flush 10 ML SYRINGE 5 ML IVFLUSH ×3 (16:09→21:38)
[2022-11-21] MEDS: 0.9 % Sodium Chloride Flush 3 ML SYRINGE IVFLUSH ×2 (16:09→17:01)
[2022-11-21 16:14] LABS: Glucose, Whole Blood 157 mg/dL (60-115)
--- NOTE | 2022-11-21 16:20 | MHC.CM.PN ---
THIS CM CALLED [facility] ADMISSIONS AND REQUESTED CALL BACK TO REQUEST PLACEMENT. NO RETURN CALL OF THIS WRITING. CM WILL CONTINUE TO FOLLOW. PT WILL NEED LT IV ABT AND NO BED OFFERS .
[2022-11-21] MEDS: Insulin Lispro 100 UNIT/ML 3 ML VIAL SUBCUT ×2 (17:01→21:30)
[2022-11-21 20:00] VITALS: BP 153/66; PULSE 56; RESP 18; TEMP 36.6; O2SAT 94
[2022-11-21 20:46] LABS: Glucose, Whole Blood 183 mg/dL (60-115)
[2022-11-21] MEDS: Melatonin 3 MG TABLET 6 MG PO (21:37)
[2022-11-22] VITALS (14 sets, daily range): BP systolic 97–150; BP diastolic 48–74; PULSE 58–89; RESP 16–20; TEMP 36.2–37; O2SAT 93–100
[2022-11-22] MEDS: ceFAZolin Sodium/Dextrose,Iso 2 GM/50 ML PIGGYBACK IV ×3 (01:00→17:09)
[2022-11-22 07:25] LABS: Glucose, Whole Blood 121 mg/dL (60-115)
--- NOTE | 2022-11-22 08:25 | P.CONAN_ITS ---
HPI - Anesthesia Eval Consult details Narrative: 67yo male patient for debridement of soft tissue both feet PMFSH Active Problems Active Problems: All Active Problems (Updated 11/21/22 @ 11:15 by Willa Cam MD) Type 2 diabetes mellitus with foot ulcer (Acute) Foot ulcer (Acute) Lymphedema (Acute) PAD (peripheral artery disease) (Acute) Sepsis (Acute) Cellulitis of right leg (Acute) Diabetic ulcer of left foot (Acute) Hypertension (Acute) Substance use disorder (Acute) Diabetes mellitus (Acute) Opiate use (Acute) Iron deficiency anemia (Acute) B12 deficiency anemia (Acute) Diabetic osteomyelitis (Acute) Diabetic ulcer of right great toe (Acute) COPD Negative sleep study for ROZINA per patient Past Medical History Medical History (Updated 11/22/22 @ 11:35 by Willa Cam MD) Acute renal failure B12 deficiency anemia Diabetes mellitus Hyperkalemia Hypertension Substance use disorder Family History Family history of problems with anesthesia: No Surgical History Surgical History (Updated 11/22/22 @ 11:35 by Willa Cam MD) H/O colonoscopy History of Problems with Anesthesia: No Social History Social History Household Members: Family Housing: House Do you presently have visiting nurse or other home services: No Alcohol intake: never Patient Tobacco Use Status: Never used Tobacco Second Hand Smoke Exposure: No Substance Use Type: Crack/Cocaine and Heroin service: No Current occupational status: disabled Meds Allergies Allergy/AdvReac Type Severity Reaction Status Date / Time No Known Allergies Allergy Verified 11/13/22 08:54 [No Known Allergies*] Active Medications: Current Medications Acetaminophen (Acetaminophen 325 Mg Tablet) 650 mg PO Q6H PRN PRN Reason: Pain, Mild (Pain Scale 1-3) Last Admin: 11/21/22 21:37 Dose: 650 mg Amlodipine Besylate (Amlodipine Besylate 2.5 Mg Tablet) 2.5 mg PO DAILY [facility]; Protocol Last Admin: 11/21/22 08:38 Dose: 2.5 mg Atorvastatin Calcium (Atorvastatin Calcium 20 Mg Tablet) 20 mg PO DAILY [facility] Last Admin: 11/21/22 08:38 Dose: 20 mg Empagliflozin (Empagliflozin 10 Mg Tablet) 10 mg PO DAILY [facility] Last Admin: 11/21/22 08:38 Dose: 10 mg Enoxaparin Sodium (Enoxaparin Sodium 40 Mg/0.4 Ml Syringe) 40 mg SUBCUT Q24H [facility] Last Admin: 11/22/22 01:00 Dose: Not Given Gabapentin (Gabapentin 300 Mg Capsule) 300 mg PO TID [facility] Last Admin: 11/21/22 21:31 Dose: 300 mg Glucose (Glucose Gel 15 Gm Gel..Gram.) 15 gm PO Q15M PRN; Protocol PRN Reason: per Hypoglycemia Standing Ord. Hydrochlorothiazide (Hydrochlorothiazide 25 Mg Tablet) 25 mg PO DAILY [facility]; Protocol Last Admin: 11/21/22 08:39 Dose: 25 mg Dextrose (D10) 250 mls @ 750 mls/hr IV Q15M PRN; Protocol PRN Reason: per Hypoglycemia Standing Ord. Cefazolin Sodium/Dextrose (Ancef) 2 gm in 50 mls @ 100 mls/hr IV Q8H [facility] Last Infusion: 11/22/22 01:49 Dose: Infused Insulin Glargine (Insulin Glargine,Hum.Rec.Anlog 100 Unit/Ml 10 Ml Vial) 50 unit SUBCUT BID [facility] Last Admin: 11/21/22 21:30 Dose: 50 unit Insulin Human Lispro (Insulin Lispro 100 Unit/Ml 3 Ml Vial) 0 unit SUBCUT QIDACHS [facility]; Protocol Last Admin: 11/22/22 07:26 Dose: Not Given Lidocaine (Lidocaine 4 % Patch Adh..Patch) 1 patch TRANSDERMA DAILY [facility]; Protocol Last Admin: 11/21/22 08:37 Dose: 1 patch Losartan Potassium (Losartan Potassium 25 Mg Tablet) 25 mg PO DAILY [facility]; Protocol Last Admin: 11/21/22 08:39 Dose: 25 mg Melatonin (Melatonin 3 Mg Tablet) 6 mg PO BEDTIME PRN PRN Reason: Insomnia Last Admin: 11/21/22 21:37 Dose: 6 mg Methadone HCl (Methadone Hcl 20 Mg/2 Ml Oral.Conc) 45 mg PO DAILY [facility] Last Admin: 11/21/22 08:37 Dose: 45 mg Metoprolol Succinate (Metoprolol Succinate Er 25 Mg Tab.Er.24h) 75 mg PO DAILY [facility]; Protocol Last Admin: 11/21/22 08:49 Dose: 75 mg Ondansetron HCl (Ondansetron Hcl 4 Mg/2 Ml Vial) 4 mg IVPUSH Q8H PRN PRN Reason: Nausea and Vomiting Oxycodone HCl (Oxycodone Hcl Immed Release 5 Mg Tablet) 5 mg PO Q4H PRN PRN Reason: mod to sev pain Pharmacy Consult (Consult Rx Perform Med Rec) 1 each MISCELLANE ONCE PRN PRN Reason: Consult order Sodium Chloride (0.9 % Sodium Chloride Flush 3 Ml Syringe) 3 ml IVFLUSH QSHIFT [facility] Last Admin: 11/21/22 17:01 Dose: 3 ml Sodium Chloride (0.9 % Sodium Chloride Flush 10 Ml Syringe) 5 ml IVFLUSH TID [facility] Last Admin: 11/21/22 21:38 Dose: 5 ml Home Medications Medication Instructions Recorded Confirmed Last Taken Type atorvastatin 20 mg tablet 1 tab PO DAILY 10/13/21 11/12/22 11/10/22 History gabapentin 300 mg capsule 1 cap PO TID 10/13/21 11/12/22 11/10/22 History insulin aspart U-100 100 unit/mL 10 unit subcut TIDWM 10/13/21 11/12/22 11/10/22 History (3 mL) subcutaneous pen (Novolog FlexPen U-100 Insulin aspart) insulin detemir U-100 100 unit/mL 60 unit subcut BID 10/13/21 11/12/22 11/10/22 History subcutaneous solution (Levemir U-100 Insulin) metoprolol succinate 50 mg 75 mg PO DAILY 10/13/21 11/12/22 11/10/22 History tablet,extended release 24 hr methadone 10 mg/mL oral concentrate 45 mg PO DAILY 10/16/21 11/12/22 11/10/22 History amlodipine 2.5 mg tablet 1 tab PO DAILY 11/12/22 11/12/22 11/10/22 History hydrochlorothiazide 25 mg tablet 1 tab PO DAILY 11/12/22 11/12/22 11/10/22 History losartan 25 mg tablet 1 tab PO DAILY 11/12/22 11/12/22 11/10/22 History Exam Exam Date and Time: November 22, [id number] Height,Weight and Vital Signs: Height 6 ft 5 in Weight 123.8 kg Last Vital Signs Temp 97.7 F 11/22/22 07:19 Pulse 66 11/22/22 07:19 Resp 18 11/22/22 07:19 BP 146/74 H 11/22/22 07:19 Pulse Ox 95 03/15/23 07:19 O2 Del Method 11/22/22 07:19 Vital Signs Temp Pulse Resp BP Pulse Ox O2 Del Method 11/22/22 10:42 97.9 F 62 16 150/66 H 96 Room Air 11/22/22 07:19 97.7 F 66 18 146/74 H 95 Room Air 11/22/22 03:44 97.6 F 65 18 139/66 95 Room Air 11/21/22 20:00 97.9 F 56 18 153/66 H 94 Room Air 11/21/22 15:11 97 F 58 18 137/65 93 Room Air Pertinent Lab Results Pertinent Lab Results: Laboratory Tests 11/11/22 11/11/22 11/11/22 20:34 21:02 21:02 WBC 10.8 RBC 3.26 L Hgb 9.3 L Hct 27.8 L MCV 85.3 MCH 28.5 MCHC 33.5 RDW 13.3 Plt Count 169 MPV 10.5 Immature Gran % (Auto) 0.8 H Neut % (Auto) 80.2 H Lymph % (Auto) 12.4 L [place] % (Auto) 6.3 Eos % (Auto) 0.1 Baso % (Auto) 0.2 Lymph # (Auto) 1.3 [place] # (Auto) 0.7 Eos # (Auto) 0.0 Baso # (Auto) 0.0 Abs Immat Gran (auto) 0.09 H Absolute Neuts (auto) 8.7 H Absolute Nucleated RBC 0.000 Nucleated RBC % (auto) 0.0 Neutrophils % (Manual) Band Neutrophils % Lymphocytes % (Manual) Atypical Lymphs % (Man) Monocytes % (Manual) Eosinophils % (Manual) Metamyelocytes % Abs Neuts (Manual) Lymphocytes # (Manual) Atyp Lymphs # (Manual) Monocytes # (Manual) Eosinophils # (Manual) Metamyelocytes # Smudge Cells Toxic Vacuolation Platelet Estimate Plt Morphology Comment RBC Morphology Polychromasia Hypochromasia ESR 95 H PT INR APTT Sodium Potassium Chloride Carbon Dioxide Anion Gap BUN Creatinine Estim Creat Clear Calc Estimated GFR POC Glucose 438 H* Random Glucose Fasting Glucose Estimat Average Glucose Hemoglobin A1c % Lactic Acid Calcium Total Bilirubin AST ALT Alkaline Phosphatase C-Reactive Protein B-Natriuretic Peptide Total Protein Albumin Lipase Urine Color Urine Appearance Urine pH Ur Specific Sells Urine Protein Urine Glucose (UA) Urine Ketones Urine Blood Urine Nitrite Ur Leukocyte Esterase Urine RBC Urine WBC Ur Squamous Epith Cells Urine Bacteria Hyaline Casts Vancomycin Trough Random Vancomycin Salicylates Urine Opiates Screen Urine Fentanyl Screen Ur Barbiturates Screen Ur Phencyclidine Scrn Ur Amphetamines Screen U Benzodiazepines Scrn Urine Cocaine Screen U Marijuana (THC) Screen COVID-19 (KATHI) COVID-19 Clin Com Influenza Type A (EMANUEL) Influenza Type B (EMANUEL) Influenza A & B Note 11/11/22 11/11/22 11/11/22 21:02 21:19 21:21 WBC RBC Hgb Hct MCV MCH MCHC RDW Plt Count MPV Immature Gran % (Auto) Neut % (Auto) Lymph % (Auto) [place] % (Auto) Eos % (Auto) Baso % (Auto) Lymph # (Auto) [place] # (Auto) Eos # (Auto) Baso # (Auto) Abs Immat Gran (auto) Absolute Neuts (auto) Absolute Nucleated RBC Nucleated RBC % (auto) Neutrophils % (Manual) Band Neutrophils % Lymphocytes % (Manual) Atypical Lymphs % (Man) Monocytes % (Manual) Eosinophils % (Manual) Metamyelocytes % Abs Neuts (Manual) Lymphocytes # (Manual) Atyp Lymphs # (Manual) Monocytes # (Manual) Eosinophils # (Manual) Metamyelocytes # Smudge Cells Toxic Vacuolation Platelet Estimate Plt Morphology Comment RBC Morphology Polychromasia Hypochromasia ESR PT INR APTT Sodium Potassium Chloride Carbon Dioxide Anion Gap BUN Creatinine Estim Creat Clear Calc Estimated GFR POC Glucose Random Glucose Fasting Glucose Estimat Average Glucose 189 Hemoglobin A1c % 8.2 Lactic Acid 2.0 Calcium Total Bilirubin AST ALT Alkaline Phosphatase C-Reactive Protein B-Natriuretic Peptide Total Protein Albumin Lipase Urine Color Urine Appearance Urine pH Ur Specific Sells Urine Protein Urine Glucose (UA) Urine Ketones Urine Blood Urine Nitrite Ur Leukocyte Esterase Urine RBC Urine WBC Ur Squamous Epith Cells Urine Bacteria Hyaline Casts Vancomycin Trough Random Vancomycin Salicylates Urine Opiates Screen Urine Fentanyl Screen Ur Barbiturates Screen Ur Phencyclidine Scrn Ur Amphetamines Screen U Benzodiazepines Scrn Urine Cocaine Screen U Marijuana (THC) Screen COVID-19 (KATHI) COVID-19 Clin Com Influenza Type A (EMANUEL) Negative Influenza Type B (EMANUEL) Negative Influenza A & B Note See Note 11/11/22 11/11/22 11/11/22 21:21 22:05 22:05 WBC RBC Hgb Hct MCV MCH MCHC RDW Plt Count MPV Immature Gran % (Auto) Neut % (Auto) Lymph % (Auto) [place] % (Auto) Eos % (Auto) Baso % (Auto) Lymph # (Auto) [place] # (Auto) Eos # (Auto) Baso # (Auto) Abs Immat Gran (auto) Absolute Neuts (auto) Absolute Nucleated RBC Nucleated RBC % (auto) Neutrophils % (Manual) Band Neutrophils % Lymphocytes % (Manual) Atypical Lymphs % (Man) Monocytes % (Manual) Eosinophils % (Manual) Metamyelocytes % Abs Neuts (Manual) Lymphocytes # (Manual) Atyp Lymphs # (Manual) Monocytes # (Manual) Eosinophils # (Manual) Metamyelocytes # Smudge Cells Toxic Vacuolation Platelet Estimate Plt Morphology Comment RBC Morphology Polychromasia Hypochromasia ESR PT INR APTT Sodium Potassium Chloride Carbon Dioxide Anion Gap BUN Creatinine Estim Creat Clear Calc Estimated GFR POC Glucose Random Glucose Fasting Glucose Estimat Average Glucose Hemoglobin A1c % Lactic Acid Calcium Total Bilirubin AST ALT Alkaline Phosphatase C-Reactive Protein B-Natriuretic Peptide Total Protein Albumin Lipase Urine Color Yellow Urine Appearance Clear Urine pH 5.5 Ur Specific Sells 1.020 Urine Protein 30 (1+) H Urine Glucose (UA) >=1000 H Urine Ketones Negative Urine Blood Negative Urine Nitrite Negative Ur Leukocyte Esterase Negative Urine RBC 0-2 Urine WBC 0-5 Ur Squamous Epith Cells 0-2 Urine Bacteria None Seen Hyaline Casts 0-2 Vancomycin Trough Random Vancomycin Salicylates Urine Opiates Screen Not Detected Urine Fentanyl Screen POSITIVE H Ur Barbiturates Screen Not Detected Ur Phencyclidine Scrn Not Detected Ur Amphetamines Screen Not Detected U Benzodiazepines Scrn Not Detected Urine Cocaine Screen POSITIVE H U Marijuana (THC) Screen Not Detected COVID-19 (KATHI) Negative COVID-19 Clin Com See Note Influenza Type A (EMANUEL) Influenza Type B (EMANUEL) Influenza A & B Note 11/11/22 11/11/22 11/12/22 22:29 22:29 02:38 WBC RBC Hgb Hct MCV MCH MCHC RDW Plt Count MPV Immature Gran % (Auto) Neut % (Auto) Lymph % (Auto) [place] % (Auto) Eos % (Auto) Baso % (Auto) Lymph # (Auto) [place] # (Auto) Eos # (Auto) Baso # (Auto) Abs Immat Gran (auto) Absolute Neuts (auto) Absolute Nucleated RBC Nucleated RBC % (auto) Neutrophils % (Manual) Band Neutrophils % Lymphocytes % (Manual) Atypical Lymphs % (Man) Monocytes % (Manual) Eosinophils % (Manual) Metamyelocytes % Abs Neuts (Manual) Lymphocytes # (Manual) Atyp Lymphs # (Manual) Monocytes # (Manual) Eosinophils # (Manual) Metamyelocytes # Smudge Cells Toxic Vacuolation Platelet Estimate Plt Morphology Comment RBC Morphology Polychromasia Hypochromasia ESR PT 14.3 H INR 1.2 H APTT 28.3 Sodium 133 L Potassium 3.6 D Chloride 99 Carbon Dioxide 26 Anion Gap 12 BUN 46 H Creatinine 1.08 Estim Creat Clear Calc 98.3 Estimated GFR > 60 POC Glucose 391 H* Random Glucose 404 H* Fasting Glucose Estimat Average Glucose Hemoglobin A1c % Lactic Acid Calcium 7.6 L D Total Bilirubin 1.4 H AST 34 ALT 30 Alkaline Phosphatase 77 C-Reactive Protein 29.34 H B-Natriuretic Peptide Total Protein 5.7 L Albumin 2.3 L Lipase 11 Urine Color Urine Appearance Urine pH Ur Specific Sells Urine Protein Urine Glucose (UA) Urine Ketones Urine Blood Urine Nitrite Ur Leukocyte Esterase Urine RBC Urine WBC Ur Squamous Epith Cells Urine Bacteria Hyaline Casts Vancomycin Trough Random Vancomycin Salicylates < 5.0 L Urine Opiates Screen Urine Fentanyl Screen Ur Barbiturates Screen Ur Phencyclidine Scrn Ur Amphetamines Screen U Benzodiazepines Scrn Urine Cocaine Screen U Marijuana (THC) Screen COVID-19 (KATHI) COVID-19 Clin Com Influenza Type A (EMANUEL) Influenza Type B (EMANUEL) Influenza A & B Note 11/12/22 11/12/22 11/12/22 04:28 05:36 05:36 WBC 9.5 RBC 2.79 L Hgb 8.1 L Hct 24.3 L MCV 87.1 MCH 29.0 MCHC 33.3 RDW 13.2 Plt Count 152 L MPV 10.9 Immature Gran % (Auto) 0.9 H Neut % (Auto) 74.5 H Lymph % (Auto) 16.6 L [place] % (Auto) 7.6 Eos % (Auto) 0.1 Baso % (Auto) 0.3 Lymph # (Auto) 1.6 [place] # (Auto) 0.7 Eos # (Auto) 0.0 Baso # (Auto) 0.0 Abs Immat Gran (auto) 0.09 H Absolute Neuts (auto) 7.1 Absolute Nucleated RBC 0.000 Nucleated RBC % (auto) 0.0 Neutrophils % (Manual) Band Neutrophils % Lymphocytes % (Manual) Atypical Lymphs % (Man) Monocytes % (Manual) Eosinophils % (Manual) Metamyelocytes % Abs Neuts (Manual) Lymphocytes # (Manual) Atyp Lymphs # (Manual) Monocytes # (Manual) Eosinophils # (Manual) Metamyelocytes # Smudge Cells Toxic Vacuolation Platelet Estimate Plt Morphology Comment RBC Morphology Polychromasia Hypochromasia ESR PT INR APTT Sodium 136 Potassium 3.8 Chloride 100 Carbon Dioxide 24 Anion Gap 16 BUN 41 H Creatinine 0.99 Estim Creat Clear Calc 107.2 Estimated GFR > 60 POC Glucose 348 H Random Glucose 351 H* Fasting Glucose Estimat Average Glucose Hemoglobin A1c % Lactic Acid Calcium 7.9 L Total Bilirubin AST ALT Alkaline Phosphatase C-Reactive Protein B-Natriuretic Peptide Total Protein Albumin Lipase Urine Color Urine Appearance Urine pH Ur Specific Sells Urine Protein Urine Glucose (UA) Urine Ketones Urine Blood Urine Nitrite Ur Leukocyte Esterase Urine RBC Urine WBC Ur Squamous Epith Cells Urine Bacteria Hyaline Casts Vancomycin Trough Random Vancomycin Salicylates Urine Opiates Screen Urine Fentanyl Screen Ur Barbiturates Screen Ur Phencyclidine Scrn Ur Amphetamines Screen U Benzodiazepines Scrn Urine Cocaine Screen U Marijuana (THC) Screen COVID-19 (KATHI) COVID-19 Clin Com Influenza Type A (EMANUEL) Influenza Type B (EMANUEL) Influenza A & B Note 11/12/22 11/12/22 11/12/22 06:17 07:10 12:42 WBC RBC Hgb Hct MCV MCH MCHC RDW Plt Count MPV Immature Gran % (Auto) Neut % (Auto) Lymph % (Auto) [place] % (Auto) Eos % (Auto) Baso % (Auto) Lymph # (Auto) [place] # (Auto) Eos # (Auto) Baso # (Auto) Abs Immat Gran (auto) Absolute Neuts (auto) Absolute Nucleated RBC Nucleated RBC % (auto) Neutrophils % (Manual) Band Neutrophils % Lymphocytes % (Manual) Atypical Lymphs % (Man) Monocytes % (Manual) Eosinophils % (Manual) Metamyelocytes % Abs Neuts (Manual) Lymphocytes # (Manual) Atyp Lymphs # (Manual) Monocytes # (Manual) Eosinophils # (Manual) Metamyelocytes # Smudge Cells Toxic Vacuolation Platelet Estimate Plt Morphology Comment RBC Morphology Polychromasia Hypochromasia ESR PT INR APTT Sodium Potassium Chloride Carbon Dioxide Anion Gap BUN Creatinine Estim Creat Clear Calc Estimated GFR POC Glucose 343 H 323 H 328 H Random Glucose Fasting Glucose Estimat Average Glucose Hemoglobin A1c % Lactic Acid Calcium Total Bilirubin AST ALT Alkaline Phosphatase C-Reactive Protein B-Natriuretic Peptide Total Protein Albumin Lipase Urine Color Urine Appearance Urine pH Ur Specific Sells Urine Protein Urine Glucose (UA) Urine Ketones Urine Blood Urine Nitrite Ur Leukocyte Esterase Urine RBC Urine WBC Ur Squamous Epith Cells Urine Bacteria Hyaline Casts Vancomycin Trough Random Vancomycin Salicylates Urine Opiates Screen Urine Fentanyl Screen Ur Barbiturates Screen Ur Phencyclidine Scrn Ur Amphetamines Screen U Benzodiazepines Scrn Urine Cocaine Screen U Marijuana (THC) Screen COVID-19 (KATHI) COVID-19 Clin Com Influenza Type A (EMANUEL) Influenza Type B (EMANUEL) Influenza A & B Note 11/12/22 11/12/22 11/13/22 16:27 20:28 07:00 WBC RBC Hgb Hct MCV MCH MCHC RDW Plt Count MPV Immature Gran % (Auto) Neut % (Auto) Lymph % (Auto) [place] % (Auto) Eos % (Auto) Baso % (Auto) Lymph # (Auto) [place] # (Auto) Eos # (Auto) Baso # (Auto) Abs Immat Gran (auto) Absolute Neuts (auto) Absolute Nucleated RBC Nucleated RBC % (auto) Neutrophils % (Manual) Band Neutrophils % Lymphocytes % (Manual) Atypical Lymphs % (Man) Monocytes % (Manual) Eosinophils % (Manual) Metamyelocytes % Abs Neuts (Manual) Lymphocytes # (Manual) Atyp Lymphs # (Manual) Monocytes # (Manual) Eosinophils # (Manual) Metamyelocytes # Smudge Cells Toxic Vacuolation Platelet Estimate Plt Morphology Comment RBC Morphology Polychromasia Hypochromasia ESR PT INR APTT Sodium Potassium Chloride Carbon Dioxide Anion Gap BUN Creatinine Estim Creat Clear Calc Estimated GFR POC Glucose 258 H 235 H Random Glucose Fasting Glucose Estimat Average Glucose Hemoglobin A1c % Lactic Acid Calcium Total Bilirubin AST ALT Alkaline Phosphatase C-Reactive Protein B-Natriuretic Peptide Total Protein Albumin Lipase Urine Color Urine Appearance Urine pH Ur Specific Sells Urine Protein Urine Glucose (UA) Urine Ketones Urine Blood Urine Nitrite Ur Leukocyte Esterase Urine RBC Urine WBC Ur Squamous Epith Cells Urine Bacteria Hyaline Casts Vancomycin Trough 10.6 Random Vancomycin Salicylates Urine Opiates Screen Urine Fentanyl Screen Ur Barbiturates Screen Ur Phencyclidine Scrn Ur Amphetamines Screen U Benzodiazepines Scrn Urine Cocaine Screen U Marijuana (THC) Screen COVID-19 (KATHI) COVID-19 Clin Com Influenza Type A (EMANUEL) Influenza Type B (EMANUEL) Influenza A & B Note 11/13/22 11/13/22 11/13/22 07:00 07:32 11:30 WBC RBC Hgb Hct MCV MCH MCHC RDW Plt Count MPV Immature Gran % (Auto) Neut % (Auto) Lymph % (Auto) [place] % (Auto) Eos % (Auto) Baso % (Auto) Lymph # (Auto) [place] # (Auto) Eos # (Auto) Baso # (Auto) Abs Immat Gran (auto) Absolute Neuts (auto) Absolute Nucleated RBC Nucleated RBC % (auto) Neutrophils % (Manual) Band Neutrophils % Lymphocytes % (Manual) Atypical Lymphs % (Man) Monocytes % (Manual) Eosinophils % (Manual) Metamyelocytes % Abs Neuts (Manual) Lymphocytes # (Manual) Atyp Lymphs # (Manual) Monocytes # (Manual) Eosinophils # (Manual) Metamyelocytes # Smudge Cells Toxic Vacuolation Platelet Estimate Plt Morphology Comment RBC Morphology Polychromasia Hypochromasia ESR PT INR APTT Sodium Potassium Chloride Carbon Dioxide Anion Gap BUN Creatinine 0.99 Estim Creat Clear Calc 106.9 Estimated GFR > 60 POC Glucose 195 H 204 H Random Glucose Fasting Glucose Estimat Average Glucose Hemoglobin A1c % Lactic Acid Calcium Total Bilirubin AST ALT Alkaline Phosphatase C-Reactive Protein B-Natriuretic Peptide Total Protein Albumin Lipase Urine Color Urine Appearance Urine pH Ur Specific Sells Urine Protein Urine Glucose (UA) Urine Ketones Urine Blood Urine Nitrite Ur Leukocyte Esterase Urine RBC Urine WBC Ur Squamous Epith Cells Urine Bacteria Hyaline Casts Vancomycin Trough Random Vancomycin Salicylates Urine Opiates Screen Urine Fentanyl Screen Ur Barbiturates Screen Ur Phencyclidine Scrn Ur Amphetamines Screen U Benzodiazepines Scrn Urine Cocaine Screen U Marijuana (THC) Screen COVID-19 (KATHI) COVID-19 Clin Com Influenza Type A (EMANUEL) Influenza Type B (EMANUEL) Influenza A & B Note 11/13/22 11/13/22 11/14/22 16:26 20:12 07:19 WBC RBC Hgb Hct MCV MCH MCHC RDW Plt Count MPV Immature Gran % (Auto) Neut % (Auto) Lymph % (Auto) [place] % (Auto) Eos % (Auto) Baso % (Auto) Lymph # (Auto) [place] # (Auto) Eos # (Auto) Baso # (Auto) Abs Immat Gran (auto) Absolute Neuts (auto) Absolute Nucleated RBC Nucleated RBC % (auto) Neutrophils % (Manual) Band Neutrophils % Lymphocytes % (Manual) Atypical Lymphs % (Man) Monocytes % (Manual) Eosinophils % (Manual) Metamyelocytes % Abs Neuts (Manual) Lymphocytes # (Manual) Atyp Lymphs # (Manual) Monocytes # (Manual) Eosinophils # (Manual) Metamyelocytes # Smudge Cells Toxic Vacuolation Platelet Estimate Plt Morphology Comment RBC Morphology Polychromasia Hypochromasia ESR PT INR APTT Sodium Potassium Chloride Carbon Dioxide Anion Gap BUN Creatinine Estim Creat Clear Calc Estimated GFR POC Glucose 277 H 345 H Random Glucose Fasting Glucose Estimat Average Glucose Hemoglobin A1c % Lactic Acid Calcium Total Bilirubin AST ALT Alkaline Phosphatase C-Reactive Protein B-Natriuretic Peptide Total Protein Albumin Lipase Urine Color Urine Appearance Urine pH Ur Specific Sells Urine Protein Urine Glucose (UA) Urine Ketones Urine Blood Urine Nitrite Ur Leukocyte Esterase Urine RBC Urine WBC Ur Squamous Epith Cells Urine Bacteria Hyaline Casts Vancomycin Trough Random Vancomycin 14.4 L Salicylates Urine Opiates Screen Urine Fentanyl Screen Ur Barbiturates Screen Ur Phencyclidine Scrn Ur Amphetamines Screen U Benzodiazepines Scrn Urine Cocaine Screen U Marijuana (THC) Screen COVID-19 (KATHI) COVID-19 Clin Com Influenza Type A (EMANUEL) Influenza Type B (EMANUEL) Influenza A & B Note 11/14/22 11/14/22 11/14/22 07:19 07:19 07:38 WBC 12.3 H RBC 2.95 L Hgb 8.3 L Hct 26.0 L MCV 88.1 MCH 28.1 MCHC 31.9 RDW 13.6 Plt Count 171 MPV 10.3 Immature Gran % (Auto) Cancelled Neut % (Auto) Cancelled Lymph % (Auto) Cancelled [place] % (Auto) Cancelled Eos % (Auto) Cancelled Baso % (Auto) Cancelled Lymph # (Auto) Cancelled [place] # (Auto) Cancelled Eos # (Auto) Cancelled Baso # (Auto) Cancelled Abs Immat Gran (auto) Cancelled Absolute Neuts (auto) Cancelled Absolute Nucleated RBC 0.000 Nucleated RBC % (auto) 0.0 Neutrophils % (Manual) 75 H Band Neutrophils % 4 Lymphocytes % (Manual) 10 L Atypical Lymphs % (Man) 2 Monocytes % (Manual) 7 Eosinophils % (Manual) Metamyelocytes % 2 Abs Neuts (Manual) 9.7 H Lymphocytes # (Manual) 1.2 Atyp Lymphs # (Manual) 0.2 Monocytes # (Manual) 0.9 Eosinophils # (Manual) Metamyelocytes # 0.2 Smudge Cells PRESENT Toxic Vacuolation PRESENT Platelet Estimate NORMAL Plt Morphology Comment NORMAL RBC Morphology NOTED Polychromasia Hypochromasia 1+ (5-14) ESR PT INR APTT Sodium 133 L Potassium 3.5 Chloride 97 Carbon Dioxide 26 Anion Gap 14 BUN 34 H Creatinine 0.97 Estim Creat Clear Calc 109.1 Estimated GFR > 60 POC Glucose 282 H Random Glucose Fasting Glucose 290 H Estimat Average Glucose Hemoglobin A1c % Lactic Acid Calcium 7.7 L Total Bilirubin 1.1 H AST 63 H ALT 53 H Alkaline Phosphatase 94 C-Reactive Protein B-Natriuretic Peptide Total Protein 5.9 L Albumin 2.0 L Lipase Urine Color Urine Appearance Urine pH Ur Specific Sells Urine Protein Urine Glucose (UA) Urine Ketones Urine Blood Urine Nitrite Ur Leukocyte Esterase Urine RBC Urine WBC Ur Squamous Epith Cells Urine Bacteria Hyaline Casts Vancomycin Trough Random Vancomycin Salicylates Urine Opiates Screen Urine Fentanyl Screen Ur Barbiturates Screen Ur Phencyclidine Scrn Ur Amphetamines Screen U Benzodiazepines Scrn Urine Cocaine Screen U Marijuana (THC) Screen COVID-19 (KATHI) COVID-19 Clin Com Influenza Type A (EMANUEL) Influenza Type B (EMANUEL) Influenza A & B Note 11/14/22 11/14/22 11/14/22 11:15 16:39 20:33 WBC RBC Hgb Hct MCV MCH MCHC RDW Plt Count MPV Immature Gran % (Auto) Neut % (Auto) Lymph % (Auto) [place] % (Auto) Eos % (Auto) Baso % (Auto) Lymph # (Auto) [place] # (Auto) Eos # (Auto) Baso # (Auto) Abs Immat Gran (auto) Absolute Neuts (auto) Absolute Nucleated RBC Nucleated RBC % (auto) Neutrophils % (Manual) Band Neutrophils % Lymphocytes % (Manual) Atypical Lymphs % (Man) Monocytes % (Manual) Eosinophils % (Manual) Metamyelocytes % Abs Neuts (Manual) Lymphocytes # (Manual) Atyp Lymphs # (Manual) Monocytes # (Manual) Eosinophils # (Manual) Metamyelocytes # Smudge Cells Toxic Vacuolation Platelet Estimate Plt Morphology Comment RBC Morphology Polychromasia Hypochromasia ESR PT INR APTT Sodium Potassium Chloride Carbon Dioxide Anion Gap BUN Creatinine Estim Creat Clear Calc Estimated GFR POC Glucose 262 H 399 H* 268 H Random Glucose Fasting Glucose Estimat Average Glucose Hemoglobin A1c % Lactic Acid Calcium Total Bilirubin AST ALT Alkaline Phosphatase C-Reactive Protein B-Natriuretic Peptide Total Protein Albumin Lipase Urine Color Urine Appearance Urine pH Ur Specific Sells Urine Protein Urine Glucose (UA) Urine Ketones Urine Blood Urine Nitrite Ur Leukocyte Esterase Urine RBC Urine WBC Ur Squamous Epith Cells Urine Bacteria Hyaline Casts Vancomycin Trough Random Vancomycin Salicylates Urine Opiates Screen Urine Fentanyl Screen Ur Barbiturates Screen Ur Phencyclidine Scrn Ur Amphetamines Screen U Benzodiazepines Scrn Urine Cocaine Screen U Marijuana (THC) Screen COVID-19 (KATHI) COVID-19 Clin Com Influenza Type A (EMANUEL) Influenza Type B (EMANUEL) Influenza A & B Note 11/15/22 11/15/22 11/15/22 05:57 05:57 07:25 WBC 11.9 H RBC 3.05 L Hgb 8.7 L Hct 26.9 L MCV 88.2 MCH 28.5 MCHC 32.3 RDW 13.6 Plt Count 191 MPV 10.9 Immature Gran % (Auto) Cancelled Neut % (Auto) Cancelled Lymph % (Auto) Cancelled [place] % (Auto) Cancelled Eos % (Auto) Cancelled Baso % (Auto) Cancelled Lymph # (Auto) Cancelled [place] # (Auto) Cancelled Eos # (Auto) Cancelled Baso # (Auto) Cancelled Abs Immat Gran (auto) Cancelled Absolute Neuts (auto) Cancelled Absolute Nucleated RBC 0.000 Nucleated RBC % (auto) 0.0 Neutrophils % (Manual) 63 Band Neutrophils % 2 L Lymphocytes % (Manual) 24 Atypical Lymphs % (Man) Monocytes % (Manual) 8 Eosinophils % (Manual) Metamyelocytes % 3 Abs Neuts (Manual) 7.7 Lymphocytes # (Manual) 2.9 Atyp Lymphs # (Manual) Monocytes # (Manual) 1.0 Eosinophils # (Manual) Metamyelocytes # 0.4 Smudge Cells Toxic Vacuolation Platelet Estimate NORMAL Plt Morphology Comment NORMAL RBC Morphology NOTED Polychromasia Hypochromasia 1+ (5-14) ESR PT INR APTT Sodium 134 L Potassium 3.7 Chloride 97 Carbon Dioxide 27 Anion Gap 14 BUN 42 H Creatinine 1.38 Estim Creat Clear Calc 76.6 Estimated GFR 52 POC Glucose 212 H Random Glucose Fasting Glucose 230 H Estimat Average Glucose Hemoglobin A1c % Lactic Acid Calcium 7.9 L Total Bilirubin 0.7 AST 50 H ALT 43 H Alkaline Phosphatase 95 C-Reactive Protein B-Natriuretic Peptide Total Protein 6.4 L Albumin 2.0 L Lipase Urine Color Urine Appearance Urine pH Ur Specific Sells Urine Protein Urine Glucose (UA) Urine Ketones Urine Blood Urine Nitrite Ur Leukocyte Esterase Urine RBC Urine WBC Ur Squamous Epith Cells Urine Bacteria Hyaline Casts Vancomycin Trough Random Vancomycin Salicylates Urine Opiates Screen Urine Fentanyl Screen Ur Barbiturates Screen Ur Phencyclidine Scrn Ur Amphetamines Screen U Benzodiazepines Scrn Urine Cocaine Screen U Marijuana (THC) Screen COVID-19 (KATHI) COVID-19 Clin Com Influenza Type A (EMANUEL) Influenza Type B (EMANUEL) Influenza A & B Note 11/15/22 11/15/22 11/15/22 11:39 16:52 19:05 WBC RBC Hgb Hct MCV MCH MCHC RDW Plt Count MPV Immature Gran % (Auto) Neut % (Auto) Lymph % (Auto) [place] % (Auto) Eos % (Auto) Baso % (Auto) Lymph # (Auto) [place] # (Auto) Eos # (Auto) Baso # (Auto) Abs Immat Gran (auto) Absolute Neuts (auto) Absolute Nucleated RBC Nucleated RBC % (auto) Neutrophils % (Manual) Band Neutrophils % Lymphocytes % (Manual) Atypical Lymphs % (Man) Monocytes % (Manual) Eosinophils % (Manual) Metamyelocytes % Abs Neuts (Manual) Lymphocytes # (Manual) Atyp Lymphs # (Manual) Monocytes # (Manual) Eosinophils # (Manual) Metamyelocytes # Smudge Cells Toxic Vacuolation Platelet Estimate Plt Morphology Comment RBC Morphology Polychromasia Hypochromasia ESR PT INR APTT Sodium Potassium Chloride Carbon Dioxide Anion Gap BUN Creatinine Estim Creat Clear Calc Estimated GFR POC Glucose 212 H 254 H Random Glucose Fasting Glucose Estimat Average Glucose Hemoglobin A1c % Lactic Acid Calcium Total Bilirubin AST ALT Alkaline Phosphatase C-Reactive Protein B-Natriuretic Peptide Total Protein Albumin Lipase Urine Color Urine Appearance Urine pH Ur Specific Sells Urine Protein Urine Glucose (UA) Urine Ketones Urine Blood Urine Nitrite Ur Leukocyte Esterase Urine RBC Urine WBC Ur Squamous Epith Cells Urine Bacteria Hyaline Casts Vancomycin Trough 9.8 L Random Vancomycin Salicylates Urine Opiates Screen Urine Fentanyl Screen Ur Barbiturates Screen Ur Phencyclidine Scrn Ur Amphetamines Screen U Benzodiazepines Scrn Urine Cocaine Screen U Marijuana (THC) Screen COVID-19 (KATHI) COVID-19 Clin Com Influenza Type A (EMANUEL) Influenza Type B (EMANUEL) Influenza A & B Note 11/15/22 11/16/22 11/16/22 20:48 06:16 06:16 WBC 10.7 RBC 2.83 L Hgb 8.0 L Hct 24.9 L MCV 88.0 MCH 28.3 MCHC 32.1 RDW 13.5 Plt Count 191 MPV 9.7 Immature Gran % (Auto) Cancelled Neut % (Auto) Cancelled Lymph % (Auto) Cancelled [place] % (Auto) Cancelled Eos % (Auto) Cancelled Baso % (Auto) Cancelled Lymph # (Auto) Cancelled [place] # (Auto) Cancelled Eos # (Auto) Cancelled Baso # (Auto) Cancelled Abs Immat Gran (auto) Cancelled Absolute Neuts (auto) Cancelled Absolute Nucleated RBC 0.000 Nucleated RBC % (auto) 0.0 Neutrophils % (Manual) 64 Band Neutrophils % 6 H Lymphocytes % (Manual) 19 L Atypical Lymphs % (Man) Monocytes % (Manual) 8 Eosinophils % (Manual) 1 Metamyelocytes % 2 Abs Neuts (Manual) 7.5 Lymphocytes # (Manual) 2.0 Atyp Lymphs # (Manual) Monocytes # (Manual) 0.9 Eosinophils # (Manual) 0.1 Metamyelocytes # 0.2 Smudge Cells Toxic Vacuolation Platelet Estimate NORMAL Plt Morphology Comment NORMAL RBC Morphology NOTED Polychromasia 1+ (0-2) Hypochromasia 1+ (5-14) ESR PT INR APTT Sodium 136 Potassium 3.5 Chloride 99 Carbon Dioxide 30 H Anion Gap 11 L BUN 37 H Creatinine 1.33 Estim Creat Clear Calc 79.5 Estimated GFR 54 POC Glucose 264 H Random Glucose Fasting Glucose 127 H Estimat Average Glucose Hemoglobin A1c % Lactic Acid Calcium 8.0 L Total Bilirubin 0.9 AST 41 H ALT 26 Alkaline Phosphatase 90 C-Reactive Protein B-Natriuretic Peptide Total Protein 6.4 L Albumin 1.9 L Lipase Urine Color Urine Appearance Urine pH Ur Specific Sells Urine Protein Urine Glucose (UA) Urine Ketones Urine Blood Urine Nitrite Ur Leukocyte Esterase Urine RBC Urine WBC Ur Squamous Epith Cells Urine Bacteria Hyaline Casts Vancomycin Trough Random Vancomycin Salicylates Urine Opiates Screen Urine Fentanyl Screen Ur Barbiturates Screen Ur Phencyclidine Scrn Ur Amphetamines Screen U Benzodiazepines Scrn Urine Cocaine Screen U Marijuana (THC) Screen COVID-19 (KATHI) COVID-19 Clin Com Influenza Type A (EMANUEL) Influenza Type B (EMANUEL) Influenza A & B Note 11/16/22 11/16/22 11/16/22 07:38 11:01 16:22 WBC RBC Hgb Hct MCV MCH MCHC RDW Plt Count MPV Immature Gran % (Auto) Neut % (Auto) Lymph % (Auto) [place] % (Auto) Eos % (Auto) Baso % (Auto) Lymph # (Auto) [place] # (Auto) Eos # (Auto) Baso # (Auto) Abs Immat Gran (auto) Absolute Neuts (auto) Absolute Nucleated RBC Nucleated RBC % (auto) Neutrophils % (Manual) Band Neutrophils % Lymphocytes % (Manual) Atypical Lymphs % (Man) Monocytes % (Manual) Eosinophils % (Manual) Metamyelocytes % Abs Neuts (Manual) Lymphocytes # (Manual) Atyp Lymphs # (Manual) Monocytes # (Manual) Eosinophils # (Manual) Metamyelocytes # Smudge Cells Toxic Vacuolation Platelet Estimate Plt Morphology Comment RBC Morphology Polychromasia Hypochromasia ESR PT INR APTT Sodium Potassium Chloride Carbon Dioxide Anion Gap BUN Creatinine Estim Creat Clear Calc Estimated GFR POC Glucose 130 H 169 H 238 H Random Glucose Fasting Glucose Estimat Average Glucose Hemoglobin A1c % Lactic Acid Calcium Total Bilirubin AST ALT Alkaline Phosphatase C-Reactive Protein B-Natriuretic Peptide Total Protein Albumin Lipase Urine Color Urine Appearance Urine pH Ur Specific Sells Urine Protein Urine Glucose (UA) Urine Ketones Urine Blood Urine Nitrite Ur Leukocyte Esterase Urine RBC Urine WBC Ur Squamous Epith Cells Urine Bacteria Hyaline Casts Vancomycin Trough Random Vancomycin Salicylates Urine Opiates Screen Urine Fentanyl Screen Ur Barbiturates Screen Ur Phencyclidine Scrn Ur Amphetamines Screen U Benzodiazepines Scrn Urine Cocaine Screen U Marijuana (THC) Screen COVID-19 (KATHI) COVID-19 Clin Com Influenza Type A (EMANUEL) Influenza Type B (EMANUEL) Influenza A & B Note 11/16/22 11/17/22 11/17/22 20:44 05:26 07:25 WBC RBC Hgb Hct MCV MCH MCHC RDW Plt Count MPV Immature Gran % (Auto) Neut % (Auto) Lymph % (Auto) [place] % (Auto) Eos % (Auto) Baso % (Auto) Lymph # (Auto) [place] # (Auto) Eos # (Auto) Baso # (Auto) Abs Immat Gran (auto) Absolute Neuts (auto) Absolute Nucleated RBC Nucleated RBC % (auto) Neutrophils % (Manual) Band Neutrophils % Lymphocytes % (Manual) Atypical Lymphs % (Man) Monocytes % (Manual) Eosinophils % (Manual) Metamyelocytes % Abs Neuts (Manual) Lymphocytes # (Manual) Atyp Lymphs # (Manual) Monocytes # (Manual) Eosinophils # (Manual) Metamyelocytes # Smudge Cells Toxic Vacuolation Platelet Estimate Plt Morphology Comment RBC Morphology Polychromasia Hypochromasia ESR PT INR APTT Sodium Potassium Chloride Carbon Dioxide Anion Gap BUN Creatinine 1.26 Estim Creat Clear Calc 84.0 Estimated GFR 57 POC Glucose 232 H 110 Random Glucose Fasting Glucose Estimat Average Glucose Hemoglobin A1c % Lactic Acid Calcium Total Bilirubin AST ALT Alkaline Phosphatase C-Reactive Protein B-Natriuretic Peptide Total Protein Albumin Lipase Urine Color Urine Appearance Urine pH Ur Specific Sells Urine Protein Urine Glucose (UA) Urine Ketones Urine Blood Urine Nitrite Ur Leukocyte Esterase Urine RBC Urine WBC Ur Squamous Epith Cells Urine Bacteria Hyaline Casts Vancomycin Trough Random Vancomycin Salicylates Urine Opiates Screen Urine Fentanyl Screen Ur Barbiturates Screen Ur Phencyclidine Scrn Ur Amphetamines Screen U Benzodiazepines Scrn Urine Cocaine Screen U Marijuana (THC) Screen COVID-19 (KATHI) COVID-19 Clin Com Influenza Type A (EMANUEL) Influenza Type B (EMANUEL) Influenza A & B Note 11/17/22 11/17/22 11/17/22 11:15 16:33 19:46 WBC RBC Hgb Hct MCV MCH MCHC RDW Plt Count MPV Immature Gran % (Auto) Neut % (Auto) Lymph % (Auto) [place] % (Auto) Eos % (Auto) Baso % (Auto) Lymph # (Auto) [place] # (Auto) Eos # (Auto) Baso # (Auto) Abs Immat Gran (auto) Absolute Neuts (auto) Absolute Nucleated RBC Nucleated RBC % (auto) Neutrophils % (Manual) Band Neutrophils % Lymphocytes % (Manual) Atypical Lymphs % (Man) Monocytes % (Manual) Eosinophils % (Manual) Metamyelocytes % Abs Neuts (Manual) Lymphocytes # (Manual) Atyp Lymphs # (Manual) Monocytes # (Manual) Eosinophils # (Manual) Metamyelocytes # Smudge Cells Toxic Vacuolation Platelet Estimate Plt Morphology Comment RBC Morphology Polychromasia Hypochromasia ESR PT INR APTT Sodium 135 Potassium 4.5 D Chloride 97 Carbon Dioxide 30 H Anion Gap 13 BUN 30 H Creatinine 1.31 Estim Creat Clear Calc 80.7 Estimated GFR 55 POC Glucose 203 H 208 H Random Glucose Fasting Glucose 259 H Estimat Average Glucose Hemoglobin A1c % Lactic Acid Calcium 8.2 L Total Bilirubin 0.5 AST 69 H ALT 27 Alkaline Phosphatase 105 C-Reactive Protein B-Natriuretic Peptide Total Protein 7.4 Albumin 2.0 L Lipase Urine Color Urine Appearance Urine pH Ur Specific Sells Urine Protein Urine Glucose (UA) Urine Ketones Urine Blood Urine Nitrite Ur Leukocyte Esterase Urine RBC Urine WBC Ur Squamous Epith Cells Urine Bacteria Hyaline Casts Vancomycin Trough Random Vancomycin Salicylates Urine Opiates Screen Urine Fentanyl Screen Ur Barbiturates Screen Ur Phencyclidine Scrn Ur Amphetamines Screen U Benzodiazepines Scrn Urine Cocaine Screen U Marijuana (THC) Screen COVID-19 (KATHI) COVID-19 Clin Com Influenza Type A (EMANUEL) Influenza Type B (EMANUEL) Influenza A & B Note 11/17/22 11/18/22 11/18/22 20:50 05:42 05:42 WBC 9.1 RBC 2.95 L Hgb 8.2 L Hct 26.0 L MCV 88.1 MCH 27.8 MCHC 31.5 RDW 13.2 Plt Count 205 MPV 10.0 Immature Gran % (Auto) 3.9 H Neut % (Auto) 68.7 Lymph % (Auto) 25.4 [place] % (Auto) 1.9 L Eos % (Auto) 0.0 Baso % (Auto) 0.1 Lymph # (Auto) 2.3 [place] # (Auto) 0.2 Eos # (Auto) 0.0 Baso # (Auto) 0.0 Abs Immat Gran (auto) 0.35 H Absolute Neuts (auto) 6.3 Absolute Nucleated RBC 0.000 Nucleated RBC % (auto) 0.0 Neutrophils % (Manual) Band Neutrophils % Lymphocytes % (Manual) Atypical Lymphs % (Man) Monocytes % (Manual) Eosinophils % (Manual) Metamyelocytes % Abs Neuts (Manual) Lymphocytes # (Manual) Atyp Lymphs # (Manual) Monocytes # (Manual) Eosinophils # (Manual) Metamyelocytes # Smudge Cells Toxic Vacuolation Platelet Estimate Plt Morphology Comment RBC Morphology Polychromasia Hypochromasia ESR PT INR APTT Sodium Potassium Chloride Carbon Dioxide Anion Gap BUN Creatinine 1.32 Estim Creat Clear Calc 80.1 Estimated GFR 54 POC Glucose 272 H Random Glucose Fasting Glucose Estimat Average Glucose Hemoglobin A1c % Lactic Acid Calcium Total Bilirubin AST ALT Alkaline Phosphatase C-Reactive Protein B-Natriuretic Peptide Total Protein Albumin Lipase Urine Color Urine Appearance Urine pH Ur Specific Sells Urine Protein Urine Glucose (UA) Urine Ketones Urine Blood Urine Nitrite Ur Leukocyte Esterase Urine RBC Urine WBC Ur Squamous Epith Cells Urine Bacteria Hyaline Casts Vancomycin Trough Random Vancomycin Salicylates Urine Opiates Screen Urine Fentanyl Screen Ur Barbiturates Screen Ur Phencyclidine Scrn Ur Amphetamines Screen U Benzodiazepines Scrn Urine Cocaine Screen U Marijuana (THC) Screen COVID-19 (KATHI) COVID-19 Clin Com Influenza Type A (EMANUEL) Influenza Type B (EMANUEL) Influenza A & B Note 11/18/22 11/18/22 11/18/22 05:42 07:03 10:59 WBC RBC Hgb Hct MCV MCH MCHC RDW Plt Count MPV Immature Gran % (Auto) Neut % (Auto) Lymph % (Auto) [place] % (Auto) Eos % (Auto) Baso % (Auto) Lymph # (Auto) [place] # (Auto) Eos # (Auto) Baso # (Auto) Abs Immat Gran (auto) Absolute Neuts (auto) Absolute Nucleated RBC Nucleated RBC % (auto) Neutrophils % (Manual) Band Neutrophils % Lymphocytes % (Manual) Atypical Lymphs % (Man) Monocytes % (Manual) Eosinophils % (Manual) Metamyelocytes % Abs Neuts (Manual) Lymphocytes # (Manual) Atyp Lymphs # (Manual) Monocytes # (Manual) Eosinophils # (Manual) Metamyelocytes # Smudge Cells Toxic Vacuolation Platelet Estimate Plt Morphology Comment RBC Morphology Polychromasia Hypochromasia ESR PT INR APTT Sodium Potassium Chloride Carbon Dioxide Anion Gap BUN Creatinine Estim Creat Clear Calc Estimated GFR POC Glucose 300 H 354 H* Random Glucose Fasting Glucose Estimat Average Glucose Hemoglobin A1c % Lactic Acid Calcium Total Bilirubin AST ALT Alkaline Phosphatase C-Reactive Protein B-Natriuretic Peptide Cancelled Total Protein Albumin Lipase Urine Color Urine Appearance Urine pH Ur Specific Sells Urine Protein Urine Glucose (UA) Urine Ketones Urine Blood Urine Nitrite Ur Leukocyte Esterase Urine RBC Urine WBC Ur Squamous Epith Cells Urine Bacteria Hyaline Casts Vancomycin Trough Random Vancomycin Salicylates Urine Opiates Screen Urine Fentanyl Screen Ur Barbiturates Screen Ur Phencyclidine Scrn Ur Amphetamines Screen U Benzodiazepines Scrn Urine Cocaine Screen U Marijuana (THC) Screen COVID-19 (KATHI) COVID-19 Clin Com Influenza Type A (EMANUEL) Influenza Type B (EMANUEL) Influenza A & B Note 11/18/22 11/18/22 11/19/22 16:37 20:32 07:05 WBC RBC Hgb Hct MCV MCH MCHC RDW Plt Count MPV Immature Gran % (Auto) Neut % (Auto) Lymph % (Auto) [place] % (Auto) Eos % (Auto) Baso % (Auto) Lymph # (Auto) [place] # (Auto) Eos # (Auto) Baso # (Auto) Abs Immat Gran (auto) Absolute Neuts (auto) Absolute Nucleated RBC Nucleated RBC % (auto) Neutrophils % (Manual) Band Neutrophils % Lymphocytes % (Manual) Atypical Lymphs % (Man) Monocytes % (Manual) Eosinophils % (Manual) Metamyelocytes % Abs Neuts (Manual) Lymphocytes # (Manual) Atyp Lymphs # (Manual) Monocytes # (Manual) Eosinophils # (Manual) Metamyelocytes # Smudge Cells Toxic Vacuolation Platelet Estimate Plt Morphology Comment RBC Morphology Polychromasia Hypochromasia ESR PT INR APTT Sodium Potassium Chloride Carbon Dioxide Anion Gap BUN Creatinine Estim Creat Clear Calc Estimated GFR POC Glucose 254 H 338 H 274 H Random Glucose Fasting Glucose Estimat Average Glucose Hemoglobin A1c % Lactic Acid Calcium Total Bilirubin AST ALT Alkaline Phosphatase C-Reactive Protein B-Natriuretic Peptide Total Protein Albumin Lipase Urine Color Urine Appearance Urine pH Ur Specific Sells Urine Protein Urine Glucose (UA) Urine Ketones Urine Blood Urine Nitrite Ur Leukocyte Esterase Urine RBC Urine WBC Ur Squamous Epith Cells Urine Bacteria Hyaline Casts Vancomycin Trough Random Vancomycin Salicylates Urine Opiates Screen Urine Fentanyl Screen Ur Barbiturates Screen Ur Phencyclidine Scrn Ur Amphetamines Screen U Benzodiazepines Scrn Urine Cocaine Screen U Marijuana (THC) Screen COVID-19 (KATHI) COVID-19 Clin Com Influenza Type A (EMANUEL) Influenza Type B (EMANUEL) Influenza A & B Note 11/19/22 11/19/22 11/19/22 11:00 16:17 19:26 WBC RBC Hgb Hct MCV MCH MCHC RDW Plt Count MPV Immature Gran % (Auto) Neut % (Auto) Lymph % (Auto) [place] % (Auto) Eos % (Auto) Baso % (Auto) Lymph # (Auto) [place] # (Auto) Eos # (Auto) Baso # (Auto) Abs Immat Gran (auto) Absolute Neuts (auto) Absolute Nucleated RBC Nucleated RBC % (auto) Neutrophils % (Manual) Band Neutrophils % Lymphocytes % (Manual) Atypical Lymphs % (Man) Monocytes % (Manual) Eosinophils % (Manual) Metamyelocytes % Abs Neuts (Manual) Lymphocytes # (Manual) Atyp Lymphs # (Manual) Monocytes # (Manual) Eosinophils # (Manual) Metamyelocytes # Smudge Cells Toxic Vacuolation Platelet Estimate Plt Morphology Comment RBC Morphology Polychromasia Hypochromasia ESR PT INR APTT Sodium Potassium Chloride Carbon Dioxide Anion Gap BUN Creatinine Estim Creat Clear Calc Estimated GFR POC Glucose 228 H 199 H 219 H Random Glucose Fasting Glucose Estimat Average Glucose Hemoglobin A1c % Lactic Acid Calcium Total Bilirubin AST ALT Alkaline Phosphatase C-Reactive Protein B-Natriuretic Peptide Total Protein Albumin Lipase Urine Color Urine Appearance Urine pH Ur Specific Sells Urine Protein Urine Glucose (UA) Urine Ketones Urine Blood Urine Nitrite Ur Leukocyte Esterase Urine RBC Urine WBC Ur Squamous Epith Cells Urine Bacteria Hyaline Casts Vancomycin Trough Random Vancomycin Salicylates Urine Opiates Screen Urine Fentanyl Screen Ur Barbiturates Screen Ur Phencyclidine Scrn Ur Amphetamines Screen U Benzodiazepines Scrn Urine Cocaine Screen U Marijuana (THC) Screen COVID-19 (KATHI) COVID-19 Clin Com Influenza Type A (EMANUEL) Influenza Type B (EMANUEL) Influenza A & B Note 11/20/22 11/20/22 11/20/22 05:54 07:20 11:02 WBC RBC Hgb Hct MCV MCH MCHC RDW Plt Count MPV Immature Gran % (Auto) Neut % (Auto) Lymph % (Auto) [place] % (Auto) Eos % (Auto) Baso % (Auto) Lymph # (Auto) [place] # (Auto) Eos # (Auto) Baso # (Auto) Abs Immat Gran (auto) Absolute Neuts (auto) Absolute Nucleated RBC Nucleated RBC % (auto) Neutrophils % (Manual) Band Neutrophils % Lymphocytes % (Manual) Atypical Lymphs % (Man) Monocytes % (Manual) Eosinophils % (Manual) Metamyelocytes % Abs Neuts (Manual) Lymphocytes # (Manual) Atyp Lymphs # (Manual) Monocytes # (Manual) Eosinophils # (Manual) Metamyelocytes # Smudge Cells Toxic Vacuolation Platelet Estimate Plt Morphology Comment RBC Morphology Polychromasia Hypochromasia ESR PT INR APTT Sodium 139 Potassium 4.3 Chloride 98 Carbon Dioxide 34 H Anion Gap 11 L BUN 35 H Creatinine 1.10 Estim Creat Clear Calc 96.2 Estimated GFR > 60 POC Glucose 142 H 189 H Random Glucose 139 H Fasting Glucose Estimat Average Glucose Hemoglobin A1c % Lactic Acid Calcium 8.7 D Total Bilirubin AST ALT Alkaline Phosphatase C-Reactive Protein 6.45 H B-Natriuretic Peptide Total Protein Albumin Lipase Urine Color Urine Appearance Urine pH Ur Specific Sells Urine Protein Urine Glucose (UA) Urine Ketones Urine Blood Urine Nitrite Ur Leukocyte Esterase Urine RBC Urine WBC Ur Squamous Epith Cells Urine Bacteria Hyaline Casts Vancomycin Trough Random Vancomycin Salicylates Urine Opiates Screen Urine Fentanyl Screen Ur Barbiturates Screen Ur Phencyclidine Scrn Ur Amphetamines Screen U Benzodiazepines Scrn Urine Cocaine Screen U Marijuana (THC) Screen COVID-19 (KATHI) COVID-19 Clin Com Influenza Type A (EMANUEL) Influenza Type B (EMANUEL) Influenza A & B Note 11/20/22 11/20/22 11/21/22 16:16 20:31 07:14 WBC RBC Hgb Hct MCV MCH MCHC RDW Plt Count MPV Immature Gran % (Auto) Neut % (Auto) Lymph % (Auto) [place] % (Auto) Eos % (Auto) Baso % (Auto) Lymph # (Auto) [place] # (Auto) Eos # (Auto) Baso # (Auto) Abs Immat Gran (auto) Absolute Neuts (auto) Absolute Nucleated RBC Nucleated RBC % (auto) Neutrophils % (Manual) Band Neutrophils % Lymphocytes % (Manual) Atypical Lymphs % (Man) Monocytes % (Manual) Eosinophils % (Manual) Metamyelocytes % Abs Neuts (Manual) Lymphocytes # (Manual) Atyp Lymphs # (Manual) Monocytes # (Manual) Eosinophils # (Manual) Metamyelocytes # Smudge Cells Toxic Vacuolation Platelet Estimate Plt Morphology Comment RBC Morphology Polychromasia Hypochromasia ESR PT INR APTT Sodium Potassium Chloride Carbon Dioxide Anion Gap BUN Creatinine Estim Creat Clear Calc Estimated GFR POC Glucose 158 H 158 H 92 Random Glucose Fasting Glucose Estimat Average Glucose Hemoglobin A1c % Lactic Acid Calcium Total Bilirubin AST ALT Alkaline Phosphatase C-Reactive Protein B-Natriuretic Peptide Total Protein Albumin Lipase Urine Color Urine Appearance Urine pH Ur Specific Sells Urine Protein Urine Glucose (UA) Urine Ketones Urine Blood Urine Nitrite Ur Leukocyte Esterase Urine RBC Urine WBC Ur Squamous Epith Cells Urine Bacteria Hyaline Casts Vancomycin Trough Random Vancomycin Salicylates Urine Opiates Screen Urine Fentanyl Screen Ur Barbiturates Screen Ur Phencyclidine Scrn Ur Amphetamines Screen U Benzodiazepines Scrn Urine Cocaine Screen U Marijuana (THC) Screen COVID-19 (KATHI) COVID-19 Clin Com Influenza Type A (EMANUEL) Influenza Type B (EMANUEL) Influenza A & B Note 11/21/22 11/21/22 11/21/22 11:08 16:08 20:41 WBC RBC Hgb Hct MCV MCH MCHC RDW Plt Count MPV Immature Gran % (Auto) Neut % (Auto) Lymph % (Auto) [place] % (Auto) Eos % (Auto) Baso % (Auto) Lymph # (Auto) [place] # (Auto) Eos # (Auto) Baso # (Auto) Abs Immat Gran (auto) Absolute Neuts (auto) Absolute Nucleated RBC Nucleated RBC % (auto) Neutrophils % (Manual) Band Neutrophils % Lymphocytes % (Manual) Atypical Lymphs % (Man) Monocytes % (Manual) Eosinophils % (Manual) Metamyelocytes % Abs Neuts (Manual) Lymphocytes # (Manual) Atyp Lymphs # (Manual) Monocytes # (Manual) Eosinophils # (Manual) Metamyelocytes # Smudge Cells Toxic Vacuolation Platelet Estimate Plt Morphology Comment RBC Morphology Polychromasia Hypochromasia ESR PT INR APTT Sodium Potassium Chloride Carbon Dioxide Anion Gap BUN Creatinine Estim Creat Clear Calc Estimated GFR POC Glucose 120 H 157 H 183 H Random Glucose Fasting Glucose Estimat Average Glucose Hemoglobin A1c % Lactic Acid Calcium Total Bilirubin AST ALT Alkaline Phosphatase C-Reactive Protein B-Natriuretic Peptide Total Protein Albumin Lipase Urine Color Urine Appearance Urine pH Ur Specific Sells Urine Protein Urine Glucose (UA) Urine Ketones Urine Blood Urine Nitrite Ur Leukocyte Esterase Urine RBC Urine WBC Ur Squamous Epith Cells Urine Bacteria Hyaline Casts Vancomycin Trough Random Vancomycin Salicylates Urine Opiates Screen Urine Fentanyl Screen Ur Barbiturates Screen Ur Phencyclidine Scrn Ur Amphetamines Screen U Benzodiazepines Scrn Urine Cocaine Screen U Marijuana (THC) Screen COVID-19 (KATHI) COVID-19 Clin Com Influenza Type A (EMANEUL) Influenza Type B (EMANUEL) Influenza A & B Note 11/22/22 07:17 WBC RBC Hgb Hct MCV MCH MCHC RDW Plt Count MPV Immature Gran % (Auto) Neut % (Auto) Lymph % (Auto) [place] % (Auto) Eos % (Auto) Baso % (Auto) Lymph # (Auto) [place] # (Auto) Eos # (Auto) Baso # (Auto) Abs Immat Gran (auto) Absolute Neuts (auto) Absolute Nucleated RBC Nucleated RBC % (auto) Neutrophils % (Manual) Band Neutrophils % Lymphocytes % (Manual) Atypical Lymphs % (Man) Monocytes % (Manual) Eosinophils % (Manual) Metamyelocytes % Abs Neuts (Manual) Lymphocytes # (Manual) Atyp Lymphs # (Manual) Monocytes # (Manual) Eosinophils # (Manual) Metamyelocytes # Smudge Cells Toxic Vacuolation Platelet Estimate Plt Morphology Comment RBC Morphology Polychromasia Hypochromasia ESR PT INR APTT Sodium Potassium Chloride Carbon Dioxide Anion Gap BUN Creatinine Estim Creat Clear Calc Estimated GFR POC Glucose 121 H Random Glucose Fasting Glucose Estimat Average Glucose Hemoglobin A1c % Lactic Acid Calcium Total Bilirubin AST ALT Alkaline Phosphatase C-Reactive Protein B-Natriuretic Peptide Total Protein Albumin Lipase Urine Color Urine Appearance Urine pH Ur Specific Sells Urine Protein Urine Glucose (UA) Urine Ketones Urine Blood Urine Nitrite Ur Leukocyte Esterase Urine RBC Urine WBC Ur Squamous Epith Cells Urine Bacteria Hyaline Casts Vancomycin Trough Random Vancomycin Salicylates Urine Opiates Screen Urine Fentanyl Screen Ur Barbiturates Screen Ur Phencyclidine Scrn Ur Amphetamines Screen U Benzodiazepines Scrn Urine Cocaine Screen U Marijuana (THC) Screen COVID-19 (KATHI) COVID-19 Clin Com Influenza Type A (EMANUEL) Influenza Type B (EMANUEL) Influenza A & B Note 11/22/22 POC 139mg/dL Narrative Narrative: Procedure Date:? 11/15/2022 Procedure Type:? Transthoracic Echocardiogram Symptoms:? MSSA bacteremia Study Quality: ? Technically Difficult ECG Rhythm:? ? ? Sinus ?? ? Conclusions: - The left ventricular systolic function is low normal.? The ? ? calculated ejection fraction is 53% by biplane method. ? - No obvious valvular pathology seen on this study (based on ? ? available image quality).? Airway Mallampati Class: II TM Dist: >3cm Neck ROM: Full Loose/Missing/Broken Teeth: Yes (Edentulous) Heart: RRR Lungs: CTAB Assessment and Plan Assessment Anesthesia Assessment: Anesthesia Plan Discussed and Chart Reviewed Final Anesthetic Review Family History of Problems with Anesthesia: No History of Problems with Anesthesia: No NPO: Yes ASA Class: III Final Preanesthetic Review: No Changes in Pt Med Stat, Meds/Allgs Chart Reviewed, Consent Obtained/Reviewed and Anes Risks/Benef Reviewed Patient Risk: Intermediate Procedure Risk: Low Assessment/Block/Sedation in SS: Assess/Block/Sedation-SS Anesthetic Plan Anesthetic Plan: GA Disposition: Standard PACU and Inp. Admit - Standard Bed
[2022-11-22] MEDS: methADONE HCl 20 MG/2 ML ORAL.CONC 45 MG PO (08:40)
[2022-11-22] MEDS: 0.9 % Sodium Chloride Flush 3 ML SYRINGE IVFLUSH ×2 (08:40→15:11)
[2022-11-22] MEDS: Atorvastatin Calcium 20 MG TABLET PO (08:40)
[2022-11-22] MEDS: Losartan Potassium 25 MG TABLET PO (08:40)
[2022-11-22] MEDS: Metoprolol Succinate ER 25 MG TAB.ER.24H 75 MG PO (08:40)
[2022-11-22] MEDS: Gabapentin 300 MG CAPSULE PO ×3 (08:41→20:49)
[2022-11-22] MEDS: Empagliflozin 10 MG TABLET PO (08:41)
[2022-11-22] MEDS: amLODIPine Besylate 2.5 MG TABLET PO (08:42)
[2022-11-22] MEDS: Lidocaine 4 % Patch ADH..PATCH 1 PATCH TRANSDERMA (08:42)
[2022-11-22] MEDS: hydroCHLOROthiazide 25 MG TABLET PO (08:43)
[2022-11-22 11:10] LABS: Glucose, Whole Blood 139 mg/dL (60-115)
--- NOTE | 2022-11-22 12:49 | P.OP_ITS ---
Operative Note Operative Note Date of Service: 11/22/22 Narrative: Preop diagnosis: Diabetic foot infection, dorsal lateral aspect of the right foot, and left heel Postop diagnosis: Diabetic foot infection, dorsal lateral aspect the right foot and left heel, with note of soft tissue gangrene Procedure: Excisional debridement of the right foot at the dorsal lateral aspect, involving full-thickness to skin and subcutaneous tissue and excisional debridement of the heel of the left foot, involving full-thickness of the skin and subcutaneous tissue as well surgeon: Aj Mathur MD The patient is a 63-year-old male admitted because of the cellulitis of both legs. I was assaulted because of drainage from the dorsal lateral aspect the right foot along with some foul-smelling odor from the left heel. Examination showed what appeared to be active infection of the soft tissue areas as above. I explained to him it would be best to proceed with excision debridement in the operating room. He understood the technique of the procedure as well as the risks, benefits, and alternatives Was brought to the operating room. He was placed supine under general seizure via linger mass airway. Both feet were elevated with a roll under the calf. The feet and ankles were prepped and draped in the usual sterile fashion. A surgical time-out was done. The patient was receiving scheduled IV antibiotics A proceeded to then use Homar scissors to excise full-thickness of the skin and subcutaneous fat on the dorsal lateral aspect of the foot because of what appeared to be gangrenous tissue. I carried this down to viable looking soft tissue. Some of the tendons were exposed at this point. I removed as much of the nonviable tissue using sharp dissection. Excised area was about 9 cm x 6 cm. I proceeded to do additional debridement of the left heel as well. Again, there was note of what appeared to be gangrenous tissue on the left heel extending to the back of the foot around this. I used migdalia scissors to accomplish is as wel.The excised area was was about 15 cm long and about 7 cm wide. I applied wet to dry dressings and wrapped both feet with Kerlix roll as well as Adiel bandage. The procedure was then completed The patient tolerated procedure well. There were no immediate complications. Estimated blood loss was about 75 cc. I had sent source of both feet as well. Patient was weighted without difficulty and transferred to the recovery room w ith stable vital signs.
[2022-11-22] MEDS: fentaNYL citrate/PF 100 MCG/2 ML VIAL 25 MCG IVPUSH (13:40)
[2022-11-22] MEDS: oxyCODONE HCl Immed Release 5 MG TABLET PO ×2 (13:42→20:49)
--- NOTE | 2022-11-22 14:05 | P.PNIM_ITS ---
Subjective Subjective Date of Service: 11/22/22 Interval History: NPO overnight pending OR debridement this afternoon Review of Systems denies chest pain Denies shortness of breath Denies nausea vomiting diarrhea Denies fever chills Physical Exam Vital Signs: Vital Signs: Last Vital Signs Temp 97.1 F 11/22/22 13:59 Pulse 61 11/22/22 13:59 Resp 16 11/22/22 13:59 BP 117/49 L 11/22/22 13:59 Pulse Ox 97 11/22/22 13:59 O2 Del Method 11/22/22 13:59 O2 Flow Rate 2 11/22/22 13:59 BMI result Body Mass Index 32.3 Const: Other: awake alert no acute distress Resp: Other: clear to auscultation bilaterally no rales rhonchi or whee Cardio: Other: no S4; positive S1-S2; no S3 murmurs rubs or gallops Skin: Other: see ER photos Extrem: Other: no edema bilaterally Objective Data Active Medications Acetaminophen (Acetaminophen 325 Mg Tablet) 650 mg PO Q6H PRN PRN Reason: Pain, Mild (Pain Scale 1-3) Last Admin: 11/21/22 21:37 Dose: 650 mg Documented By: DARRON Albuterol Sulfate (Albuterol Sulfate (0.083%) 2.5 Mg/3 Ml Vial.Neb) 2.5 mg INHALE ONCE PRN PRN Reason: Wheezing Amlodipine Besylate (Amlodipine Besylate 2.5 Mg Tablet) 2.5 mg PO DAILY [facility]; Protocol Last Admin: 11/22/22 08:42 Dose: 2.5 mg Documented By: FLOWER Atorvastatin Calcium (Atorvastatin Calcium 20 Mg Tablet) 20 mg PO DAILY [facility] Last Admin: 11/22/22 08:40 Dose: 20 mg Documented By: FLOWER Empagliflozin (Empagliflozin 10 Mg Tablet) 10 mg PO DAILY [facility] Last Admin: 11/22/22 08:41 Dose: 10 mg Documented By: FLOWER Enoxaparin Sodium (Enoxaparin Sodium 40 Mg/0.4 Ml Syringe) 40 mg SUBCUT Q24H [facility] Last Admin: 11/22/22 01:00 Dose: Not Given Documented By: DARRON Non-Admin Reason: surgical procedure Fentanyl (Fentanyl Citrate/Pf 100 Mcg/2 Ml Vial) 25 mcg IVPUSH Q5M PRN; Protocol PRN Reason: Pain, Moderate (Pain Scale 4-6 Last Admin: 11/22/22 13:40 Dose: 25 mcg Documented By: PRASHANT Gabapentin (Gabapentin 300 Mg Capsule) 300 mg PO TID [facility] Last Admin: 11/22/22 08:41 Dose: 300 mg Documented By: FLOWER Glucose (Glucose Gel 15 Gm Gel..Gram.) 15 gm PO Q15M PRN; Protocol PRN Reason: per Hypoglycemia Standing Ord. Hydrochlorothiazide (Hydrochlorothiazide 25 Mg Tablet) 25 mg PO DAILY [facility]; Protocol Last Admin: 11/22/22 08:43 Dose: 25 mg Documented By: FLOWER Dextrose (D10) 250 mls @ 750 mls/hr IV Q15M PRN; Protocol PRN Reason: per Hypoglycemia Standing Ord. Cefazolin Sodium/Dextrose (Ancef) 2 gm in 50 mls @ 100 mls/hr IV Q8H [facility] Last Infusion: 11/22/22 10:30 Dose: 0 mls/hr Documented By: FLOWER Lactated Ringer's (Lr) 1,000 mls @ 100 mls/hr IVCONT .Q10H [facility] Promethazine HCl 6.25 mg/ (Sodium Chloride) 50.25 mls @ 201 mls/hr IV ONCE PRN PRN Reason: Nausea and Vomiting Acetaminophen (Ofirmev) 1,000 mg in 100 mls @ 400 mls/hr IV ONCE PRN PRN Reason: Pain, Moderate (Pain Scale 4-6 Insulin Glargine (Insulin Glargine,Hum.Rec.Anlog 100 Unit/Ml 10 Ml Vial) 50 unit SUBCUT BID [facility] Last Admin: 11/22/22 10:30 Dose: Not Given Documented By: FLOWER Non-Admin Reason: NPO Insulin Human Lispro (Insulin Lispro 100 Unit/Ml 3 Ml Vial) 0 unit SUBCUT QIDACHS [facility]; Protocol Last Admin: 11/22/22 11:21 Dose: Not Given Documented By: FLOWER Non-Admin Reason: No Insulin Coverage Lidocaine (Lidocaine 4 % Patch Adh..Patch) 1 patch TRANSDERMA DAILY [facility]; Protocol Last Admin: 11/22/22 08:42 Dose: 1 patch Documented By: FLOWER Losartan Potassium (Losartan Potassium 25 Mg Tablet) 25 mg PO DAILY [facility]; Protocol Last Admin: 11/22/22 08:40 Dose: 25 mg Documented By: FLOWER Melatonin (Melatonin 3 Mg Tablet) 6 mg PO BEDTIME PRN PRN Reason: Insomnia Last Admin: 11/21/22 21:37 Dose: 6 mg Documented By: DARRON Methadone HCl (Methadone Hcl 20 Mg/2 Ml Oral.Conc) 45 mg PO DAILY [facility] Last Admin: 11/22/22 08:40 Dose: 45 mg Documented By: FLOWER Metoprolol Succinate (Metoprolol Succinate Er 25 Mg Tab.Er.24h) 75 mg PO DAILY [facility]; Protocol Last Admin: 11/22/22 08:40 Dose: 75 mg Documented By: FLOWER Ondansetron HCl (Ondansetron Hcl 4 Mg/2 Ml Vial) 4 mg IVPUSH Q8H PRN PRN Reason: Nausea and Vomiting Ondansetron HCl (Ondansetron Hcl 4 Mg/2 Ml Vial) 4 mg IVPUSH ONCE PRN PRN Reason: Nausea and Vomiting Oxycodone HCl (Oxycodone Hcl Immed Release 5 Mg Tablet) 5 mg PO Q4H PRN PRN Reason: mod to sev pain Pharmacy Consult (Consult Rx Perform Med Rec) 1 each MISCELLANE ONCE PRN PRN Reason: Consult order Sodium Chloride (0.9 % Sodium Chloride Flush 3 Ml Syringe) 3 ml IVFLUSH QSHIFT [facility] Last Admin: 11/22/22 08:40 Dose: 3 ml Documented By: FLOWER Sodium Chloride (0.9 % Sodium Chloride Flush 10 Ml Syringe) 5 ml IVFLUSH TID [facility] Last Admin: 11/21/22 21:38 Dose: 5 ml Documented By: DARRON Labs 11/18/22 05:42 11/20/22 05:54 Labs: Laboratory Results - last 24 hr 11/21/22 11/21/22 11/22/22 16:08 20:41 07:17 POC Glucose 157 H 183 H 121 H 11/22/22 11:07 POC Glucose 139 H Microbiology Microbiology Results: Microbiology 11/20/22 12:16 Blood Culture - Preliminary Blood - Venous No growth after 24 hours. 11/20/22 12:16 Blood Culture - Preliminary Blood - Central Line No growth after 24 hours. Assessment and Plan (1) Sepsis: Status: Acute (2) Diabetes mellitus: Status: Acute (3) Hypertension: Status: Acute Plan This is a 67-year-old female with pertinent history of insulin-dependent diabetes mellitus, opioid and cocaine use disorder, history of diabetic foot ulcer with osteomyelitis, essential hypertension presents to the emergency department evaluation of fevers and chills. 1.Sepsis due to right lower extremity cellulitis and left lower extremity diabetic foot ulcer -Sepsis resolved - Ancef 2 g IV q.8 hours() - blood cultures drawn negative times 48 hours PICC line ordered - a total of 6 weeks of therapy for MSSA bacteremia 2.Uncontrolled insulin-dependent diabetes mellitus with hyperglycemia -poor control -increase Lantus to 40 BID and follow -continue lispro correctional scale 3.Cocaine and heroin use disorder -Consulted addiction team and CARE team -methadone as ordered 4.Essential hypertension -resume home meds -adjust as indicated Lovenox 40 mg daily Full code Pt requires ongoing inpatient hospitalization for IV antibiotics to treat osteomyelitis Time Spent With Patient Time: Total time managing care of this patient today ____ minutes. Quality Stroke Does the patient have a stroke diagnosis?: No VTE Prior VTE?: No VTE Risk Level:: Medical - moderate - high VTE Device Contraindication: Treatment Not Indicated VTE Drug Contraindication: N/A - Med Ordered
[2022-11-22 14:22] LABS: Glucose, Whole Blood 107 mg/dL (60-115)
[2022-11-22] MEDS: Lactated Ringers 1,000 ML 100 ML IVCONT ×2 (15:05→20:53)
[2022-11-22 16:44] LABS: Glucose, Whole Blood 186 mg/dL (60-115)
--- NOTE | 2022-11-22 16:52 | MHC.CM.PN ---
Per MD rounds no discharge today. Patient scheduled for OR today DP STR @ a facility via BLS. Barrier to placement is Methadone therapy.
[2022-11-22] MEDS: Insulin Lispro 100 UNIT/ML 3 ML VIAL SUBCUT ×2 (17:08→20:48)
[2022-11-22] MEDS: 0.9 % Sodium Chloride Flush 10 ML SYRINGE 5 ML IVFLUSH ×2 (17:10→20:50)
[2022-11-22] MEDS: Morphine Sulfate 2 MG/ML CARTRIDGE IVPUSH (18:27)
[2022-11-22 20:12] LABS: Glucose, Whole Blood 241 mg/dL (60-115)
[2022-11-22] MEDS: Insulin Glargine,Hum.rec.anlog 100 UNIT/ML 10 ML VIAL 50 UNIT SUBCUT (20:49)
[2022-11-22] MEDS: Acetaminophen 325 MG TABLET 650 MG PO (20:50)
[2022-11-23] MEDS: Enoxaparin Sodium 40 MG/0.4 ML SYRINGE SUBCUT (01:04)
[2022-11-23] MEDS: ceFAZolin Sodium/Dextrose,Iso 2 GM/50 ML PIGGYBACK IV ×3 (01:04→17:12)
[2022-11-23] MEDS: 0.9 % Sodium Chloride Flush 3 ML SYRINGE IVFLUSH ×3 (01:05→15:25)
[2022-11-23 03:20] VITALS: BP 128/58; PULSE 64; RESP 18; TEMP 36.4; O2SAT 94
[2022-11-23 07:07] LABS: MANUAL DIFF FLAG NO
[2022-11-23 07:15] LABS: Basophils Percent Auto 0.1 % (0-2); Eosinophils Absolute Auto 0.1 X10*3/uL (0.0-0.4); Hematocrit 24.9 % (42.0-52.0); Hemoglobin 7.8 g/dl (14.0-18.0); Imm Gran Pct Auto 1.3 % (0.0-0.4); Lymphocytes Absolute Auto 2.5 X10*3/uL (1.2-4.9); Lymphocytes Percent Auto 32.7 % (20-40); Mean Corpuscular HGB Conc 31.3 g/dl (31.0-36.0); Mean Corpuscular Hemoglobin 27.9 pg (27.0-33.0); Mean Corpuscular Volume 88.9 fL (80.0-98.0); Mean Platelet Volume 9.3 fL (9.4-12.4); Monocytes Absolute Auto 0.5 X10*3/uL (0.1-1.2); Neutrophils Absolute Auto 4.6 x10*3/uL (2.0-8.3); Neutrophils Percent Auto 58.9 % (45-73); Platelet Count 200 X10*3/uL (160-400); Red Cell Distribution Width 13.8 % (11.0-16.0); White Blood Count 7.8 X10*3/uL (4.8-10.8)
[2022-11-23 07:26] VITALS: BP 135/70; PULSE 71; RESP 20; TEMP 35.5; O2SAT 92
[2022-11-23 07:27] LABS: Alanine Aminotransferase 11 U/L (0-40); Albumin Level 1.9 g/dL (3.5-5.0); Alkaline Phosphatase 82 U/L (39-117); Anion Gap 11 (12-20); Aspartate Amino Transferase 27 U/L (5-37); Bilirubin Total 0.4 mg/dL (0.0-1.0); Blood Urea Nitrogen 35 mg/dL (9-16); Calcium 8.7 mg/dL (8.4-10.2); Carbon Dioxide 34 mmol/L (22-29); Chloride 94 mmol/L (96-108); Creatinine Clr Calc Pharmacy 66.5; Estimated Glomerular Filt Rate 44; Glucose Fasting 176 mg/dL (60-99); Sodium 135 mmol/L (135-145); Total Protein 6.4 g/dL (6.5-8.0)
[2022-11-23 07:32] LABS: Glucose, Whole Blood 167 mg/dL (60-115)
[2022-11-23] MEDS: Gabapentin 300 MG CAPSULE PO ×3 (08:14→21:56)
[2022-11-23] MEDS: Atorvastatin Calcium 20 MG TABLET PO (08:14)
[2022-11-23] MEDS: Losartan Potassium 25 MG TABLET PO (08:14)
[2022-11-23] MEDS: amLODIPine Besylate 2.5 MG TABLET PO (08:14)
[2022-11-23] MEDS: Metoprolol Succinate ER 25 MG TAB.ER.24H 75 MG PO (08:14)
[2022-11-23] MEDS: hydroCHLOROthiazide 25 MG TABLET PO (08:14)
[2022-11-23] MEDS: Empagliflozin 10 MG TABLET PO (08:14)
[2022-11-23] MEDS: Insulin Glargine,Hum.rec.anlog 100 UNIT/ML 10 ML VIAL 50 UNIT SUBCUT ×2 (08:15→21:57)
[2022-11-23] MEDS: Insulin Lispro 100 UNIT/ML 3 ML VIAL SUBCUT ×4 (08:16→21:56)
[2022-11-23] MEDS: methADONE HCl 20 MG/2 ML ORAL.CONC 45 MG PO (08:17)
[2022-11-23] MEDS: 0.9 % Sodium Chloride Flush 10 ML SYRINGE 5 ML IVFLUSH ×3 (08:18→21:56)
[2022-11-23] MEDS: Lactated Ringers 1,000 ML 100 ML IVCONT ×2 (08:25→15:25)
[2022-11-23] MEDS: Morphine Sulfate 2 MG/ML CARTRIDGE IVPUSH (09:38)
--- NOTE | 2022-11-23 09:43 | PM.PNGS ---
Subjective Subjective Date of Service: 11/23/22 Interval history: Feels ok this morning. Does not have much pain at debridement sites. Physical Exam Vital Signs: Vital Signs: Last Vital Signs Temp 96 F L 11/23/22 07:26 Pulse 71 11/23/22 07:26 Resp 20 11/23/22 07:26 BP 135/70 11/23/22 07:26 Pulse Ox 92 11/23/22 07:26 O2 Del Method 11/23/22 07:26 O2 Flow Rate 3 11/22/22 16:00 BMI result Body Mass Index 32.3 Const: General: comfortable, no acute distress and alert Resp: Effort & Inspection: normal respiratory effort Skin: Other: warm and dry Extrem: Other: right foot- lateral dorsal aspect- some granulation tissue at base of debridement site, very little drainage, no erythema or edema left foot- medial aspect of wound extending towards achilles with granulation tissue and clean appearing, area overlying the calcaneous with some fibrinous tissue Objective Data Active Medications Acetaminophen (Acetaminophen 325 Mg Tablet) 650 mg PO Q6H PRN PRN Reason: Pain, Mild (Pain Scale 1-3) Last Admin: 11/22/22 20:50 Dose: 650 mg Documented By: DARRON Albuterol Sulfate (Albuterol Sulfate (0.083%) 2.5 Mg/3 Ml Vial.Neb) 2.5 mg INHALE ONCE PRN PRN Reason: Wheezing Amlodipine Besylate (Amlodipine Besylate 2.5 Mg Tablet) 2.5 mg PO DAILY [facility]; Protocol Last Admin: 11/23/22 08:14 Dose: 2.5 mg Documented By: FLOWER Atorvastatin Calcium (Atorvastatin Calcium 20 Mg Tablet) 20 mg PO DAILY [facility] Last Admin: 11/23/22 08:14 Dose: 20 mg Documented By: FLOWER Empagliflozin (Empagliflozin 10 Mg Tablet) 10 mg PO DAILY [facility] Last Admin: 11/23/22 08:14 Dose: 10 mg Documented By: FLOWER Enoxaparin Sodium (Enoxaparin Sodium 40 Mg/0.4 Ml Syringe) 40 mg SUBCUT Q24H [facility] Last Admin: 11/23/22 01:04 Dose: 40 mg Documented By: DARRON Fentanyl (Fentanyl Citrate/Pf 100 Mcg/2 Ml Vial) 25 mcg IVPUSH Q5M PRN; Protocol PRN Reason: Pain, Moderate (Pain Scale 4-6 Last Admin: 11/22/22 13:40 Dose: 25 mcg Documented By: PRASHANT Gabapentin (Gabapentin 300 Mg Capsule) 300 mg PO TID [facility] Last Admin: 11/23/22 08:14 Dose: 300 mg Documented By: FLOWER Glucose (Glucose Gel 15 Gm Gel..Gram.) 15 gm PO Q15M PRN; Protocol PRN Reason: per Hypoglycemia Standing Ord. Hydrochlorothiazide (Hydrochlorothiazide 25 Mg Tablet) 25 mg PO DAILY [facility]; Protocol Last Admin: 11/23/22 08:14 Dose: 25 mg Documented By: FLOWER Dextrose (D10) 250 mls @ 750 mls/hr IV Q15M PRN; Protocol PRN Reason: per Hypoglycemia Standing Ord. Cefazolin Sodium/Dextrose (Ancef) 2 gm in 50 mls @ 100 mls/hr IV Q8H [facility] Last Admin: 11/23/22 08:15 Dose: 100 mls/hr Documented By: FLOWER Lactated Ringer's (Lr) 1,000 mls @ 100 mls/hr IVCONT .Q10H [facility] Last Admin: 11/23/22 08:25 Dose: 100 mls/hr Documented By: FLOWER Promethazine HCl 6.25 mg/ (Sodium Chloride) 50.25 mls @ 201 mls/hr IV ONCE PRN PRN Reason: Nausea and Vomiting Acetaminophen (Ofirmev) 1,000 mg in 100 mls @ 400 mls/hr IV ONCE PRN PRN Reason: Pain, Moderate (Pain Scale 4-6 Insulin Glargine (Insulin Glargine,Hum.Rec.Anlog 100 Unit/Ml 10 Ml Vial) 50 unit SUBCUT BID [facility] Last Admin: 11/23/22 08:15 Dose: 50 unit Documented By: FLOWER Insulin Human Lispro (Insulin Lispro 100 Unit/Ml 3 Ml Vial) 0 unit SUBCUT QIDACHS [facility]; Protocol Last Admin: 11/23/22 08:16 Dose: 4 unit Documented By: FLOWER Lidocaine (Lidocaine 4 % Patch Adh..Patch) 1 patch TRANSDERMA DAILY [facility]; Protocol Last Admin: 11/23/22 08:26 Dose: Not Given Documented By: FLOWER Non-Admin Reason: Patient Refused Losartan Potassium (Losartan Potassium 25 Mg Tablet) 25 mg PO DAILY [facility]; Protocol Last Admin: 11/23/22 08:14 Dose: 25 mg Documented By: FLOWER Melatonin (Melatonin 3 Mg Tablet) 6 mg PO BEDTIME PRN PRN Reason: Insomnia Last Admin: 11/21/22 21:37 Dose: 6 mg Documented By: DARRON Methadone HCl (Methadone Hcl 20 Mg/2 Ml Oral.Conc) 45 mg PO DAILY [facility] Last Admin: 11/23/22 08:17 Dose: 45 mg Documented By: FLOWER Metoprolol Succinate (Metoprolol Succinate Er 25 Mg Tab.Er.24h) 75 mg PO DAILY [facility]; Protocol Last Admin: 11/23/22 08:14 Dose: 75 mg Documented By: FLOWER Morphine Sulfate (Morphine Sulfate 2 Mg/Ml Cartridge) 2 mg IVPUSH Q3H PRN; Protocol PRN Reason: Pain, Severe (Pain Scale 7-10) Last Admin: 11/23/22 09:38 Dose: 2 mg Documented By: FLOWER Ondansetron HCl (Ondansetron Hcl 4 Mg/2 Ml Vial) 4 mg IVPUSH Q8H PRN PRN Reason: Nausea and Vomiting Ondansetron HCl (Ondansetron Hcl 4 Mg/2 Ml Vial) 4 mg IVPUSH ONCE PRN PRN Reason: Nausea and Vomiting Oxycodone HCl (Oxycodone Hcl Immed Release 5 Mg Tablet) 5 mg PO Q4H PRN PRN Reason: mod to sev pain Last Admin: 11/22/22 20:49 Dose: 5 mg Documented By: DARRON Pharmacy Consult (Consult Rx Perform Med Rec) 1 each MISCELLANE ONCE PRN PRN Reason: Consult order Sodium Chloride (0.9 % Sodium Chloride Flush 3 Ml Syringe) 3 ml IVFLUSH QSHIFT [facility] Last Admin: 11/23/22 08:25 Dose: 3 ml Documented By: FLOWER Sodium Chloride (0.9 % Sodium Chloride Flush 10 Ml Syringe) 5 ml IVFLUSH TID [facility] Last Admin: 11/23/22 08:18 Dose: 5 ml Documented By: FLOWER Labs 11/23/22 05:40 11/23/22 05:40 Labs: Laboratory Results - last 24 hr 11/22/22 11/22/22 11/22/22 11:07 14:16 16:41 MCV MCH MCHC RDW Plt Count MPV Immature Gran % (Auto) Neut % (Auto) Lymph % (Auto) [place] % (Auto) Eos % (Auto) Baso % (Auto) Lymph # (Auto) [place] # (Auto) Eos # (Auto) Baso # (Auto) Abs Immat Gran (auto) Absolute Neuts (auto) Absolute Nucleated RBC Nucleated RBC % (auto) Anion Gap Estim Creat Clear Calc Estimated GFR POC Glucose 139 H 107 186 H Fasting Glucose Calcium Total Bilirubin AST ALT Alkaline Phosphatase Total Protein Albumin 11/22/22 11/23/22 11/23/22 20:07 05:40 05:40 MCV 88.9 MCH 27.9 MCHC 31.3 RDW 13.8 Plt Count 200 MPV 9.3 L Immature Gran % (Auto) 1.3 H Neut % (Auto) 58.9 Lymph % (Auto) 32.7 [place] % (Auto) 6.0 Eos % (Auto) 1.0 Baso % (Auto) 0.1 Lymph # (Auto) 2.5 [place] # (Auto) 0.5 Eos # (Auto) 0.1 Baso # (Auto) 0.0 Abs Immat Gran (auto) 0.10 H Absolute Neuts (auto) 4.6 Absolute Nucleated RBC 0.000 Nucleated RBC % (auto) 0.0 Anion Gap 11 L Estim Creat Clear Calc 66.5 Estimated GFR 44 POC Glucose 241 H Fasting Glucose 176 H Calcium 8.7 Total Bilirubin 0.4 AST 27 ALT 11 Alkaline Phosphatase 82 Total Protein 6.4 L Albumin 1.9 L 11/23/22 07:24 MCV MCH MCHC RDW Plt Count MPV Immature Gran % (Auto) Neut % (Auto) Lymph % (Auto) [place] % (Auto) Eos % (Auto) Baso % (Auto) Lymph # (Auto) [place] # (Auto) Eos # (Auto) Baso # (Auto) Abs Immat Gran (auto) Absolute Neuts (auto) Absolute Nucleated RBC Nucleated RBC % (auto) Anion Gap Estim Creat Clear Calc Estimated GFR POC Glucose 167 H Fasting Glucose Calcium Total Bilirubin AST ALT Alkaline Phosphatase Total Protein Albumin Microbiology Microbiology Results: Microbiology 11/22/22 Unknown Gram Stain - Final Foot Left 11/20/22 12:16 Blood Culture - Preliminary Blood - Venous No growth after 48 hours. 11/20/22 12:16 Blood Culture - Preliminary Blood - Central Line No growth after 48 hours. 11/22/22 Unknown Gram Stain - Final Foot Right Procedures Date of Service Date of Service: 11/23/22 Progress Note: A&P Assessment and plan (1) Type 2 diabetes mellitus with foot ulcer: Status: Acute Plan 67 year old male admitted for bilateral diabetic foot infection now POD #1 s/p excisional debridement of the right foot at the dorsal lateral aspect and excisional debridement of the heel of the left foot. Dressings changed today. Right foot clean appearing and granulating well. Left foot overall improved with granulation and some fibrinous tissue that may need to be further debrided. Cont daily dressing changes with wet to dry fluffs, fluffs, abd dressing, kerlix and mark wrap. Cont elevation and padding of b/l feet. Time Spent With Patient Time: Total time managing care of this patient today ____ minutes. Quality Stroke Does the patient have a stroke diagnosis?: No VTE Prior VTE?: No VTE Risk Level:: Medical - moderate - high VTE Device Contraindication: Treatment Not Indicated VTE Drug Contraindication: N/A - Med Ordered
[2022-11-23 11:10] LABS: Glucose, Whole Blood 183 mg/dL (60-115)
--- NOTE | 2022-11-23 13:31 | P.PNIM_ITS ---
Subjective Subjective Date of Service: 11/23/22 Interval History: No acute issues overnight. Pain control adequate Review of Systems denies chest pain Denies shortness of breath Denies nausea vomiting diarrhea Denies fever chills Physical Exam Vital Signs: Vital Signs: Last Vital Signs Temp 96 F L 11/23/22 07:26 Pulse 71 11/23/22 07:26 Resp 20 11/23/22 07:26 BP 135/70 11/23/22 07:26 Pulse Ox 92 11/23/22 07:26 O2 Del Method 11/23/22 07:26 O2 Flow Rate 3 11/22/22 16:00 BMI result Body Mass Index 32.3 Const: Other: awake alert no acute distress Resp: Other: clear to auscultation bilaterally no rales rhonchi or whee Cardio: Other: no S4; positive S1-S2; no S3 murmurs rubs or gallops Skin: Other: see ER photos Extrem: Other: no edema bilaterally Objective Data Active Medications Acetaminophen (Acetaminophen 325 Mg Tablet) 650 mg PO Q6H PRN PRN Reason: Pain, Mild (Pain Scale 1-3) Last Admin: 11/22/22 20:50 Dose: 650 mg Documented By: DARRON Albuterol Sulfate (Albuterol Sulfate (0.083%) 2.5 Mg/3 Ml Vial.Neb) 2.5 mg INHALE ONCE PRN PRN Reason: Wheezing Amlodipine Besylate (Amlodipine Besylate 2.5 Mg Tablet) 2.5 mg PO DAILY [facility]; Protocol Last Admin: 11/23/22 08:14 Dose: 2.5 mg Documented By: FLOWER Atorvastatin Calcium (Atorvastatin Calcium 20 Mg Tablet) 20 mg PO DAILY [facility] Last Admin: 11/23/22 08:14 Dose: 20 mg Documented By: FLOWER Empagliflozin (Empagliflozin 10 Mg Tablet) 10 mg PO DAILY [facility] Last Admin: 11/23/22 08:14 Dose: 10 mg Documented By: FLOWER Enoxaparin Sodium (Enoxaparin Sodium 40 Mg/0.4 Ml Syringe) 40 mg SUBCUT Q24H [facility] Last Admin: 11/23/22 01:04 Dose: 40 mg Documented By: DARRON Fentanyl (Fentanyl Citrate/Pf 100 Mcg/2 Ml Vial) 25 mcg IVPUSH Q5M PRN; Protocol PRN Reason: Pain, Moderate (Pain Scale 4-6 Last Admin: 11/22/22 13:40 Dose: 25 mcg Documented By: PRASHANT Gabapentin (Gabapentin 300 Mg Capsule) 300 mg PO TID [facility] Last Admin: 11/23/22 08:14 Dose: 300 mg Documented By: FLOWER Glucose (Glucose Gel 15 Gm Gel..Gram.) 15 gm PO Q15M PRN; Protocol PRN Reason: per Hypoglycemia Standing Ord. Hydrochlorothiazide (Hydrochlorothiazide 25 Mg Tablet) 25 mg PO DAILY [facility]; Protocol Last Admin: 11/23/22 08:14 Dose: 25 mg Documented By: FLOWER Dextrose (D10) 250 mls @ 750 mls/hr IV Q15M PRN; Protocol PRN Reason: per Hypoglycemia Standing Ord. Cefazolin Sodium/Dextrose (Ancef) 2 gm in 50 mls @ 100 mls/hr IV Q8H [facility] Last Infusion: 11/23/22 11:34 Dose: 0 mls/hr Documented By: FLOWER Lactated Ringer's (Lr) 1,000 mls @ 100 mls/hr IVCONT .Q10H [facility] Last Admin: 11/23/22 08:25 Dose: 100 mls/hr Documented By: FLOWER Promethazine HCl 6.25 mg/ (Sodium Chloride) 50.25 mls @ 201 mls/hr IV ONCE PRN PRN Reason: Nausea and Vomiting Acetaminophen (Ofirmev) 1,000 mg in 100 mls @ 400 mls/hr IV ONCE PRN PRN Reason: Pain, Moderate (Pain Scale 4-6 Insulin Glargine (Insulin Glargine,Hum.Rec.Anlog 100 Unit/Ml 10 Ml Vial) 50 unit SUBCUT BID [facility] Last Admin: 11/23/22 08:15 Dose: 50 unit Documented By: FLOWER Insulin Human Lispro (Insulin Lispro 100 Unit/Ml 3 Ml Vial) 0 unit SUBCUT QIDACHS [facility]; Protocol Last Admin: 11/23/22 12:22 Dose: 4 unit Documented By: FLOWER Lidocaine (Lidocaine 4 % Patch Adh..Patch) 1 patch TRANSDERMA DAILY [facility]; Protocol Last Admin: 11/23/22 08:26 Dose: Not Given Documented By: FLOWER Non-Admin Reason: Patient Refused Losartan Potassium (Losartan Potassium 25 Mg Tablet) 25 mg PO DAILY [facility]; Protocol Last Admin: 11/23/22 08:14 Dose: 25 mg Documented By: FLOWER Melatonin (Melatonin 3 Mg Tablet) 6 mg PO BEDTIME PRN PRN Reason: Insomnia Last Admin: 11/21/22 21:37 Dose: 6 mg Documented By: DARRON Methadone HCl (Methadone Hcl 20 Mg/2 Ml Oral.Conc) 45 mg PO DAILY [facility] Last Admin: 11/23/22 08:17 Dose: 45 mg Documented By: FLOWER Metoprolol Succinate (Metoprolol Succinate Er 25 Mg Tab.Er.24h) 75 mg PO DAILY [facility]; Protocol Last Admin: 11/23/22 08:14 Dose: 75 mg Documented By: FLOWER Morphine Sulfate (Morphine Sulfate 2 Mg/Ml Cartridge) 2 mg IVPUSH Q3H PRN; Protocol PRN Reason: Pain, Severe (Pain Scale 7-10) Last Admin: 11/23/22 09:38 Dose: 2 mg Documented By: FLOWER Ondansetron HCl (Ondansetron Hcl 4 Mg/2 Ml Vial) 4 mg IVPUSH Q8H PRN PRN Reason: Nausea and Vomiting Ondansetron HCl (Ondansetron Hcl 4 Mg/2 Ml Vial) 4 mg IVPUSH ONCE PRN PRN Reason: Nausea and Vomiting Oxycodone HCl (Oxycodone Hcl Immed Release 5 Mg Tablet) 5 mg PO Q4H PRN PRN Reason: mod to sev pain Last Admin: 11/22/22 20:49 Dose: 5 mg Documented By: DARRON Pharmacy Consult (Consult Rx Perform Med Rec) 1 each MISCELLANE ONCE PRN PRN Reason: Consult order Sodium Chloride (0.9 % Sodium Chloride Flush 3 Ml Syringe) 3 ml IVFLUSH QSHIFT [facility] Last Admin: 11/23/22 08:25 Dose: 3 ml Documented By: FLOWER Sodium Chloride (0.9 % Sodium Chloride Flush 10 Ml Syringe) 5 ml IVFLUSH TID [facility] Last Admin: 11/23/22 08:18 Dose: 5 ml Documented By: FLOWER Labs 11/23/22 05:40 11/23/22 05:40 Labs: Laboratory Results - last 24 hr 11/22/22 11/22/22 11/22/22 14:16 16:41 20:07 MCV MCH MCHC RDW Plt Count MPV Immature Gran % (Auto) Neut % (Auto) Lymph % (Auto) [place] % (Auto) Eos % (Auto) Baso % (Auto) Lymph # (Auto) [place] # (Auto) Eos # (Auto) Baso # (Auto) Abs Immat Gran (auto) Absolute Neuts (auto) Absolute Nucleated RBC Nucleated RBC % (auto) Anion Gap Estim Creat Clear Calc Estimated GFR POC Glucose 107 186 H 241 H Fasting Glucose Calcium Total Bilirubin AST ALT Alkaline Phosphatase Total Protein Albumin 11/23/22 11/23/22 11/23/22 05:40 05:40 07:24 MCV 88.9 MCH 27.9 MCHC 31.3 RDW 13.8 Plt Count 200 MPV 9.3 L Immature Gran % (Auto) 1.3 H Neut % (Auto) 58.9 Lymph % (Auto) 32.7 [place] % (Auto) 6.0 Eos % (Auto) 1.0 Baso % (Auto) 0.1 Lymph # (Auto) 2.5 [place] # (Auto) 0.5 Eos # (Auto) 0.1 Baso # (Auto) 0.0 Abs Immat Gran (auto) 0.10 H Absolute Neuts (auto) 4.6 Absolute Nucleated RBC 0.000 Nucleated RBC % (auto) 0.0 Anion Gap 11 L Estim Creat Clear Calc 66.5 Estimated GFR 44 POC Glucose 167 H Fasting Glucose 176 H Calcium 8.7 Total Bilirubin 0.4 AST 27 ALT 11 Alkaline Phosphatase 82 Total Protein 6.4 L Albumin 1.9 L 11/23/22 11:05 MCV MCH MCHC RDW Plt Count MPV Immature Gran % (Auto) Neut % (Auto) Lymph % (Auto) [place] % (Auto) Eos % (Auto) Baso % (Auto) Lymph # (Auto) [place] # (Auto) Eos # (Auto) Baso # (Auto) Abs Immat Gran (auto) Absolute Neuts (auto) Absolute Nucleated RBC Nucleated RBC % (auto) Anion Gap Estim Creat Clear Calc Estimated GFR POC Glucose 183 H Fasting Glucose Calcium Total Bilirubin AST ALT Alkaline Phosphatase Total Protein Albumin Microbiology Microbiology Results: Microbiology 11/22/22 Unknown Gram Stain - Final Foot Left Routine Culture - Preliminary Staphylococcus aureus 11/22/22 Unknown Gram Stain - Final Foot Right Routine Culture - Preliminary Staphylococcus aureus 11/20/22 12:16 Blood Culture - Preliminary Blood - Venous No growth after 48 hours. 11/20/22 12:16 Blood Culture - Preliminary Blood - Central Line No growth after 48 hours. Assessment and Plan (1) Sepsis: Status: Acute (2) Foot ulcer: Status: Acute (3) Type 2 diabetes mellitus with foot ulcer: Status: Acute Plan This is a 67-year-old female with pertinent history of insulin-dependent diabetes mellitus, opioid and cocaine use disorder, history of diabetic foot ulcer with osteomyelitis, essential hypertension presents to the emergency department evaluation of fevers and chills. 1.Sepsis due to right lower extremity cellulitis and left lower extremity diabetic foot ulcer -Sepsis resolved -Ancef 2 g IV q.8 hours() -a total of 6 weeks of therapy for MSSA bacteremia 2.Uncontrolled insulin-dependent diabetes mellitus with hyperglycemia -poor control -increase Lantus to 40 BID and follow -continue lispro correctional scale 3.Cocaine and heroin use disorder -Consulted addiction team and CARE team -methadone as ordered 4.Essential hypertension -resume home meds -adjust as indicated Lovenox 40 mg daily Full code Pt requires ongoing inpatient hospitalization for IV antibiotics to treat osteomyelitis Time Spent With Patient Time: Total time managing care of this patient today ____ minutes. Quality Stroke Does the patient have a stroke diagnosis?: No VTE Prior VTE?: No VTE Risk Level:: Medical - moderate - high VTE Device Contraindication: Treatment Not Indicated VTE Drug Contraindication: N/A - Med Ordered
--- NOTE | 2022-11-23 13:46 | HO.POSTANES ---
Post Anesthesia Evaluation Post Anesthesia Evaluation Vital Signs: Vital Signs Temp Pulse Resp BP Pulse Ox O2 Del Method 11/23/22 11:46 Room Air 11/23/22 07:26 96 F L 71 20 135/70 92 Room Air 11/23/22 03:20 97.6 F 64 18 128/58 L 94 Room Air Anesthesia: General Mental Status: Awake Pain Control: Satisfactory Nausea/Vomiting: None Hydration: Adequate Anesthesia-Related Issues: No Anes. Related Issues
[2022-11-23 14:41] VITALS: BP 135/63; PULSE 66; RESP 18; TEMP 36.1; O2SAT 93
[2022-11-23 16:21] LABS: Glucose, Whole Blood 202 mg/dL (60-115)
[2022-11-23 20:55] LABS: Glucose, Whole Blood 167 mg/dL (60-115)
[2022-11-23] MEDS: Melatonin 3 MG TABLET 6 MG PO (22:07)
[2022-11-23] MEDS: oxyCODONE HCl Immed Release 5 MG TABLET PO (22:07)
[2022-11-23 22:12] VITALS: BP 114/56; PULSE 65; RESP 18; TEMP 36.8; O2SAT 93
[2022-11-24] MEDS: Enoxaparin Sodium 40 MG/0.4 ML SYRINGE SUBCUT (00:39)
[2022-11-24] MEDS: ceFAZolin Sodium/Dextrose,Iso 2 GM/50 ML PIGGYBACK IV ×3 (00:39→16:24)
[2022-11-24] MEDS: Lactated Ringers 1,000 ML 100 ML IVCONT ×2 (00:40→09:44)
[2022-11-24] MEDS: Morphine Sulfate 2 MG/ML CARTRIDGE IVPUSH ×2 (00:48→09:43)
[2022-11-24 03:13] VITALS: BP 145/60; PULSE 61; RESP 18; TEMP 36.1; O2SAT 93
[2022-11-24 06:28] LABS: MANUAL DIFF FLAG NO
[2022-11-24 06:36] LABS: Basophils Percent Auto 0.1 % (0-2); Eosinophils Absolute Auto 0.1 X10*3/uL (0.0-0.4); Hematocrit 24.7 % (42.0-52.0); Hemoglobin 7.8 g/dl (14.0-18.0); Imm Gran Abs Auto 0.09 X10*3/uL (0.00-0.03); Imm Gran Pct Auto 1.1 % (0.0-0.4); Lymphocytes Absolute Auto 2.7 X10*3/uL (1.2-4.9); Lymphocytes Percent Auto 34.2 % (20-40); Mean Corpuscular HGB Conc 31.6 g/dl (31.0-36.0); Mean Corpuscular Hemoglobin 27.9 pg (27.0-33.0); Mean Corpuscular Volume 88.2 fL (80.0-98.0); Mean Platelet Volume 9.2 fL (9.4-12.4); Monocytes Absolute Auto 0.6 X10*3/uL (0.1-1.2); Neutrophils Absolute Auto 4.5 x10*3/uL (2.0-8.3); Neutrophils Percent Auto 56.6 % (45-73); Platelet Count 212 X10*3/uL (160-400); Red Cell Distribution Width 13.4 % (11.0-16.0)
[2022-11-24 07:05] VITALS: BP 160/72; PULSE 71; RESP 18; TEMP 36.6; O2SAT 96
[2022-11-24 07:05] LABS: Alanine Aminotransferase 9 U/L (0-40); Alkaline Phosphatase 82 U/L (39-117); Anion Gap 11 (12-20); Aspartate Amino Transferase 25 U/L (5-37); Bilirubin Total 0.4 mg/dL (0.0-1.0); Blood Urea Nitrogen 30 mg/dL (9-16); Calcium 9.2 mg/dL (8.4-10.2); Carbon Dioxide 34 mmol/L (22-29); Chloride 96 mmol/L (96-108); Creatinine Clr Calc Pharmacy 66.5; Estimated Glomerular Filt Rate 44; Glucose Fasting 143 mg/dL (60-99); Sodium 137 mmol/L (135-145); Total Protein 6.6 g/dL (6.5-8.0)
[2022-11-24 07:12] LABS: Glucose, Whole Blood 148 mg/dL (60-115)
--- NOTE | 2022-11-24 07:38 | P.CDIM_ITS ---
PROVIDER RESPONSE TEXT: To clarify, the appropriate diagnosis supported by the clinical indicators: Acute QUERY TEXT: PHYSICIAN'S DOCUMENTATION REQUEST Date of Query: 11/23/2022 09:31 AM EDT Patient Name: Paul Vo Admit Date: 11/12/2022 Dear Jakob Campos, A review of the medical record indicates additional documentation may be needed. Please review below and update the documentation accordingly. Clinical Indicators: per MD progress note 11/22/22: Pt requires ongoing inpatient hospitalization for IV antibiotics to treat osteomyelitis Clarify which of the following accurately represents the acuity of the Osteomyelitis. Possible options might include: Acute Acute on chronic Compensated Chronic stable condition Other (explain) Clinically unable to determine (explain) Thank you, Mel Gomez RN Use of terms such as suspected, likely, concern for, or probable (associated with a specific diagnosi s that is being evaluated, monitored, or treated as if it exists) are acceptable and can be coded in the inpatient se tting, when documented at the time of discharge. Please use your independent medical judgment in providing your response. THIS QUERY IS PART OF THE PERMANENT MEDICAL RECORD
[2022-11-24] MEDS: Empagliflozin 10 MG TABLET PO (09:00)
[2022-11-24] MEDS: Gabapentin 300 MG CAPSULE PO ×3 (09:00→20:20)
[2022-11-24] MEDS: Metoprolol Succinate ER 25 MG TAB.ER.24H 75 MG PO (09:00)
[2022-11-24] MEDS: Losartan Potassium 25 MG TABLET PO (09:00)
[2022-11-24] MEDS: amLODIPine Besylate 2.5 MG TABLET PO (09:00)
[2022-11-24] MEDS: hydroCHLOROthiazide 25 MG TABLET PO (09:00)
[2022-11-24] MEDS: Atorvastatin Calcium 20 MG TABLET PO (09:00)
[2022-11-24] MEDS: 0.9 % Sodium Chloride Flush 10 ML SYRINGE 5 ML IVFLUSH ×3 (09:01→20:20)
[2022-11-24] MEDS: 0.9 % Sodium Chloride Flush 3 ML SYRINGE IVFLUSH ×2 (09:01→16:24)
[2022-11-24] MEDS: methADONE HCl 20 MG/2 ML ORAL.CONC 45 MG PO (09:02)
[2022-11-24] MEDS: Insulin Glargine,Hum.rec.anlog 100 UNIT/ML 10 ML VIAL 50 UNIT SUBCUT ×2 (09:02→20:20)
--- NOTE | 2022-11-24 10:50 | MHC.CM.PN ---
PT AWAITING SNF PLACEMENT FOR IV ABX PT ON METHADONE [facility] HAS INDICATED THEY ARE NOT TAKING PTS ON THIS MED [facility] HAS NO MALE BEDS REFERRAL OPENED UP TO [facility] AWAITING RESPONSE
[2022-11-24 11:12] LABS: Glucose, Whole Blood 127 mg/dL (60-115)
--- NOTE | 2022-11-24 12:44 | P.PNIM_ITS ---
Subjective Subjective Date of Service: 11/24/22 Interval History: No acute issues overnight. Pain control adequate Review of Systems denies chest pain Denies shortness of breath Denies nausea vomiting diarrhea Denies fever chills Physical Exam Vital Signs: Vital Signs: Last Vital Signs Temp 98 F 11/24/22 07:05 Pulse 71 11/24/22 07:05 Resp 18 11/24/22 07:05 BP 160/72 H 11/24/22 07:05 Pulse Ox 96 11/24/22 07:05 O2 Del Method 11/24/22 11:00 O2 Flow Rate 3 11/22/22 16:00 BMI result Body Mass Index 32.3 Const: Other: awake alert no acute distress Resp: Other: clear to auscultation bilaterally no rales rhonchi or whee Cardio: Other: no S4; positive S1-S2; no S3 murmurs rubs or gallops Skin: Other: see ER photos Extrem: Other: no edema bilaterally Objective Data Active Medications Acetaminophen (Acetaminophen 325 Mg Tablet) 650 mg PO Q6H PRN PRN Reason: Pain, Mild (Pain Scale 1-3) Last Admin: 11/22/22 20:50 Dose: 650 mg Documented By: DARRON Albuterol Sulfate (Albuterol Sulfate (0.083%) 2.5 Mg/3 Ml Vial.Neb) 2.5 mg INHALE ONCE PRN PRN Reason: Wheezing Amlodipine Besylate (Amlodipine Besylate 2.5 Mg Tablet) 2.5 mg PO DAILY [facility]; Protocol Last Admin: 11/24/22 09:00 Dose: 2.5 mg Documented By: FLOWER Atorvastatin Calcium (Atorvastatin Calcium 20 Mg Tablet) 20 mg PO DAILY [facility] Last Admin: 11/24/22 09:00 Dose: 20 mg Documented By: FLOWER Empagliflozin (Empagliflozin 10 Mg Tablet) 10 mg PO DAILY [facility] Last Admin: 11/24/22 09:00 Dose: 10 mg Documented By: FLOWER Enoxaparin Sodium (Enoxaparin Sodium 40 Mg/0.4 Ml Syringe) 40 mg SUBCUT Q24H [facility] Last Admin: 11/24/22 00:39 Dose: 40 mg Documented By: ASHVINILGerardo Fentanyl (Fentanyl Citrate/Pf 100 Mcg/2 Ml Vial) 25 mcg IVPUSH Q5M PRN; Protocol PRN Reason: Pain, Moderate (Pain Scale 4-6 Last Admin: 11/22/22 13:40 Dose: 25 mcg Documented By: PRASHANT Gabapentin (Gabapentin 300 Mg Capsule) 300 mg PO TID [facility] Last Admin: 11/24/22 09:00 Dose: 300 mg Documented By: FLOWER Glucose (Glucose Gel 15 Gm Gel..Gram.) 15 gm PO Q15M PRN; Protocol PRN Reason: per Hypoglycemia Standing Ord. Hydrochlorothiazide (Hydrochlorothiazide 25 Mg Tablet) 25 mg PO DAILY [facility]; Protocol Last Admin: 11/24/22 09:00 Dose: 25 mg Documented By: FLOWER Dextrose (D10) 250 mls @ 750 mls/hr IV Q15M PRN; Protocol PRN Reason: per Hypoglycemia Standing Ord. Cefazolin Sodium/Dextrose (Ancef) 2 gm in 50 mls @ 100 mls/hr IV Q8H [facility] Last Infusion: 11/24/22 09:44 Dose: 0 mls/hr Documented By: FLOWER Lactated Ringer's (Lr) 1,000 mls @ 100 mls/hr IVCONT .Q10H [facility] Last Admin: 11/24/22 09:44 Dose: 100 mls/hr Documented By: FLOWER Promethazine HCl 6.25 mg/ (Sodium Chloride) 50.25 mls @ 201 mls/hr IV ONCE PRN PRN Reason: Nausea and Vomiting Acetaminophen (Ofirmev) 1,000 mg in 100 mls @ 400 mls/hr IV ONCE PRN PRN Reason: Pain, Moderate (Pain Scale 4-6 Insulin Glargine (Insulin Glargine,Hum.Rec.Anlog 100 Unit/Ml 10 Ml Vial) 50 unit SUBCUT BID [facility] Last Admin: 11/24/22 09:02 Dose: 50 unit Documented By: FLOWER Insulin Human Lispro (Insulin Lispro 100 Unit/Ml 3 Ml Vial) 0 unit SUBCUT QIDACHS [facility]; Protocol Last Admin: 11/24/22 09:01 Dose: Not Given Documented By: FLOWER Non-Admin Reason: No Insulin Coverage Lidocaine (Lidocaine 4 % Patch Adh..Patch) 1 patch TRANSDERMA DAILY [facility]; Protocol Last Admin: 11/24/22 11:24 Dose: Not Given Documented By: FLOWER Non-Admin Reason: Patient Refused Losartan Potassium (Losartan Potassium 25 Mg Tablet) 25 mg PO DAILY [facility]; Protocol Last Admin: 11/24/22 09:00 Dose: 25 mg Documented By: FLOWER Melatonin (Melatonin 3 Mg Tablet) 6 mg PO BEDTIME PRN PRN Reason: Insomnia Last Admin: 11/23/22 22:07 Dose: 6 mg Documented By: DARIUS Methadone HCl (Methadone Hcl 20 Mg/2 Ml Oral.Conc) 45 mg PO DAILY [facility] Last Admin: 11/24/22 09:02 Dose: 45 mg Documented By: FLOWER Metoprolol Succinate (Metoprolol Succinate Er 25 Mg Tab.Er.24h) 75 mg PO DAILY [facility]; Protocol Last Admin: 11/24/22 09:00 Dose: 75 mg Documented By: FLOWER Morphine Sulfate (Morphine Sulfate 2 Mg/Ml Cartridge) 2 mg IVPUSH Q3H PRN; Protocol PRN Reason: Pain, Severe (Pain Scale 7-10) Last Admin: 11/24/22 09:43 Dose: 2 mg Documented By: FLOWER Ondansetron HCl (Ondansetron Hcl 4 Mg/2 Ml Vial) 4 mg IVPUSH Q8H PRN PRN Reason: Nausea and Vomiting Ondansetron HCl (Ondansetron Hcl 4 Mg/2 Ml Vial) 4 mg IVPUSH ONCE PRN PRN Reason: Nausea and Vomiting Oxycodone HCl (Oxycodone Hcl Immed Release 5 Mg Tablet) 5 mg PO Q4H PRN PRN Reason: mod to sev pain Last Admin: 11/23/22 22:07 Dose: 5 mg Documented By: DARIUS Pharmacy Consult (Consult Rx Perform Med Rec) 1 each MISCELLANE ONCE PRN PRN Reason: Consult order Sodium Chloride (0.9 % Sodium Chloride Flush 3 Ml Syringe) 3 ml IVFLUSH QSHIFT [facility] Last Admin: 11/24/22 09:01 Dose: 3 ml Documented By: FLOWER Sodium Chloride (0.9 % Sodium Chloride Flush 10 Ml Syringe) 5 ml IVFLUSH TID [facility] Last Admin: 11/24/22 09:01 Dose: 5 ml Documented By: FLOWER Labs 11/24/22 06:09 11/24/22 06:09 Labs: Laboratory Results - last 24 hr 11/23/22 11/23/22 11/24/22 16:16 20:52 06:09 MCV 88.2 MCH 27.9 MCHC 31.6 RDW 13.4 Plt Count 212 MPV 9.2 L Immature Gran % (Auto) 1.1 H Neut % (Auto) 56.6 Lymph % (Auto) 34.2 [place] % (Auto) 7.0 Eos % (Auto) 1.0 Baso % (Auto) 0.1 Lymph # (Auto) 2.7 [place] # (Auto) 0.6 Eos # (Auto) 0.1 Baso # (Auto) 0.0 Abs Immat Gran (auto) 0.09 H Absolute Neuts (auto) 4.5 Absolute Nucleated RBC 0.000 Nucleated RBC % (auto) 0.0 Anion Gap Estim Creat Clear Calc Estimated GFR POC Glucose 202 H 167 H Fasting Glucose Calcium Total Bilirubin AST ALT Alkaline Phosphatase Total Protein Albumin 11/24/22 11/24/22 11/24/22 06:09 07:04 11:08 MCV MCH MCHC RDW Plt Count MPV Immature Gran % (Auto) Neut % (Auto) Lymph % (Auto) [place] % (Auto) Eos % (Auto) Baso % (Auto) Lymph # (Auto) [place] # (Auto) Eos # (Auto) Baso # (Auto) Abs Immat Gran (auto) Absolute Neuts (auto) Absolute Nucleated RBC Nucleated RBC % (auto) Anion Gap 11 L Estim Creat Clear Calc 66.5 Estimated GFR 44 POC Glucose 148 H 127 H Fasting Glucose 143 H Calcium 9.2 Total Bilirubin 0.4 AST 25 ALT 9 Alkaline Phosphatase 82 Total Protein 6.6 Albumin 2.0 L Microbiology Microbiology Results: Microbiology 11/22/22 Unknown Gram Stain - Final Foot Left Routine Culture - Preliminary Staphylococcus aureus 11/22/22 Unknown Gram Stain - Final Foot Right Routine Culture - Preliminary Staphylococcus aureus Assessment and Plan (1) Sepsis: Status: Acute (2) Type 2 diabetes mellitus with foot ulcer: Status: Acute Plan This is a 67-year-old female with pertinent history of insulin-dependent diabetes mellitus, opioid and cocaine use disorder, history of diabetic foot ulcer with osteomyelitis, essential hypertension presents to the emergency department evaluation of fevers and chills. 1.Sepsis due to right lower extremity cellulitis and left lower extremity diabe tic foot ulcer -Sepsis resolved -Ancef 2 g IV q.8 hours() -a total of 6 weeks of therapy for MSSA bacteremia 2.Uncontrolled insulin-dependent diabetes mellitus with hyperglycemia -poor control -increase Lantus to 40 BID and follow -continue lispro correctional scale 3.Cocaine and heroin use disorder -Consulted addiction team and CARE team -methadone as ordered 4.Essential hypertension -resume home meds -adjust as indicated Lovenox 40 mg daily Full code Pt requires ongoing inpatient hospitalization for IV antibiotics to treat osteomyelitis Time Spent With Patient Time: Total time managing care of this patient today ____ minutes. Quality Stroke Does the patient have a stroke diagnosis?: No VTE Prior VTE?: No VTE Risk Level:: Medical - moderate - high VTE Device Contraindication: Treatment Not Indicated VTE Drug Contraindication: N/A - Med Ordered
[2022-11-24 15:14] VITALS: BP 141/65; PULSE 63; RESP 17; TEMP 36.4; O2SAT 93
[2022-11-24 16:13] LABS: Glucose, Whole Blood 149 mg/dL (60-115)
[2022-11-24 19:27] VITALS: BP 142/63; PULSE 66; RESP 17; TEMP 36.6; O2SAT 93
[2022-11-24 20:13] LABS: Glucose, Whole Blood 219 mg/dL (60-115)
[2022-11-24] MEDS: Insulin Lispro 100 UNIT/ML 3 ML VIAL SUBCUT (20:20)
[2022-11-25] MEDS: ceFAZolin Sodium/Dextrose,Iso 2 GM/50 ML PIGGYBACK IV ×3 (00:23→16:56)
[2022-11-25] MEDS: Enoxaparin Sodium 40 MG/0.4 ML SYRINGE SUBCUT (00:23)
[2022-11-25 04:00] VITALS: BP 130/62; PULSE 60; RESP 16; TEMP 36.2; O2SAT 93
[2022-11-25 07:25] LABS: Glucose, Whole Blood 129 mg/dL (60-115)
[2022-11-25 07:25] LABS: MANUAL DIFF FLAG NO
[2022-11-25 07:29] LABS: Basophils Percent Auto 0.3 % (0-2); Eosinophils Absolute Auto 0.1 X10*3/uL (0.0-0.4); Hemoglobin 7.6 g/dl (14.0-18.0); Imm Gran Pct Auto 1.4 % (0.0-0.4); Lymphocytes Absolute Auto 2.5 X10*3/uL (1.2-4.9); Lymphocytes Percent Auto 35.6 % (20-40); Mean Corpuscular HGB Conc 31.7 g/dl (31.0-36.0); Mean Corpuscular Hemoglobin 28.5 pg (27.0-33.0); Mean Corpuscular Volume 89.9 fL (80.0-98.0); Mean Platelet Volume 9.5 fL (9.4-12.4); Monocytes Absolute Auto 0.5 X10*3/uL (0.1-1.2); Monocytes Percent Auto 7.4 % (2-11); Neutrophils Absolute Auto 3.8 x10*3/uL (2.0-8.3); Neutrophils Percent Auto 54.3 % (45-73); Platelet Count 210 X10*3/uL (160-400); Red Blood Count 2.67 X10*6/uL (4.60-5.80); Red Cell Distribution Width 13.7 % (11.0-16.0)
[2022-11-25 08:00] VITALS: BP 150/69; PULSE 64; RESP 18; TEMP 36.4; O2SAT 91
[2022-11-25 08:19] LABS: Alanine Aminotransferase 9 U/L (0-40); Alkaline Phosphatase 80 U/L (39-117); Anion Gap 14 (12-20); Aspartate Amino Transferase 25 U/L (5-37); Bilirubin Total 0.4 mg/dL (0.0-1.0); Blood Urea Nitrogen 31 mg/dL (9-16); Calcium 9.3 mg/dL (8.4-10.2); Carbon Dioxide 33 mmol/L (22-29); Chloride 96 mmol/L (96-108); Estimated Glomerular Filt Rate 50; Glucose Fasting 122 mg/dL (60-99); Potassium 3.7 mmol/L (3.3-5.1); Sodium 139 mmol/L (135-145); Total Protein 6.6 g/dL (6.5-8.0)
[2022-11-25] MEDS: Metoprolol Succinate ER 25 MG TAB.ER.24H 75 MG PO (08:23)
[2022-11-25] MEDS: Insulin Lispro 100 UNIT/ML 3 ML VIAL SUBCUT ×4 (08:23→21:01)
[2022-11-25] MEDS: Gabapentin 300 MG CAPSULE PO ×3 (08:23→21:01)
[2022-11-25] MEDS: methADONE HCl 20 MG/2 ML ORAL.CONC 45 MG PO (08:23)
[2022-11-25] MEDS: Insulin Glargine,Hum.rec.anlog 100 UNIT/ML 10 ML VIAL 50 UNIT SUBCUT ×2 (08:23→21:01)
[2022-11-25] MEDS: hydroCHLOROthiazide 25 MG TABLET PO (08:24)
[2022-11-25] MEDS: Losartan Potassium 25 MG TABLET PO (08:24)
[2022-11-25] MEDS: Empagliflozin 10 MG TABLET PO (08:24)
[2022-11-25] MEDS: Atorvastatin Calcium 20 MG TABLET PO (08:24)
[2022-11-25] MEDS: amLODIPine Besylate 2.5 MG TABLET PO (08:24)
[2022-11-25] MEDS: 0.9 % Sodium Chloride Flush 10 ML SYRINGE 5 ML IVFLUSH ×3 (08:25→21:02)
[2022-11-25] MEDS: 0.9 % Sodium Chloride Flush 3 ML SYRINGE IVFLUSH ×2 (08:25→15:40)
--- NOTE | 2022-11-25 10:02 | P.PNGS_ITS ---
Subjective Subjective Date of Service: 11/25/22 Interval history: Patient feels well, denies any ongoing foot pain. Physical Exam Vital Signs: Vital Signs: Last Vital Signs Temp 97.6 F 11/25/22 08:00 Pulse 64 11/25/22 08:00 Resp 18 11/25/22 08:00 BP 150/69 H 11/25/22 08:00 Pulse Ox 91 L 11/25/22 08:00 O2 Del Method 11/25/22 08:00 O2 Flow Rate 3 11/22/22 16:00 BMI result Body Mass Index 32.3 Const: General: comfortable, no acute distress and alert Resp: Effort & Inspection: normal respiratory effort Skin: Other: warm and dry Extrem: Other: Bilateral dressings intact, recently changed and clean without bloody or purulence discharge noted. Objective Data Active Medications Acetaminophen (Acetaminophen 325 Mg Tablet) 650 mg PO Q6H PRN PRN Reason: Pain, Mild (Pain Scale 1-3) Last Admin: 11/22/22 20:50 Dose: 650 mg Documented By: DARRON Albuterol Sulfate (Albuterol Sulfate (0.083%) 2.5 Mg/3 Ml Vial.Neb) 2.5 mg INHALE ONCE PRN PRN Reason: Wheezing Amlodipine Besylate (Amlodipine Besylate 2.5 Mg Tablet) 2.5 mg PO DAILY [facility]; Protocol Last Admin: 11/25/22 08:24 Dose: 2.5 mg Documented By: JAIME Atorvastatin Calcium (Atorvastatin Calcium 20 Mg Tablet) 20 mg PO DAILY [facility] Last Admin: 11/25/22 08:24 Dose: 20 mg Documented By: JAIME Empagliflozin (Empagliflozin 10 Mg Tablet) 10 mg PO DAILY [facility] Last Admin: 11/25/22 08:24 Dose: 10 mg Documented By: JAIME Enoxaparin Sodium (Enoxaparin Sodium 40 Mg/0.4 Ml Syringe) 40 mg SUBCUT Q24H [facility] Last Admin: 11/25/22 00:23 Dose: 40 mg Documented By: RAFA Fentanyl (Fentanyl Citrate/Pf 100 Mcg/2 Ml Vial) 25 mcg IVPUSH Q5M PRN; Protocol PRN Reason: Pain, Moderate (Pain Scale 4-6 Last Admin: 11/22/22 13:40 Dose: 25 mcg Documented By: PRASHANT Gabapentin (Gabapentin 300 Mg Capsule) 300 mg PO TID [facility] Last Admin: 11/25/22 08:23 Dose: 300 mg Documented By: JAIME Glucose (Glucose Gel 15 Gm Gel..Gram.) 15 gm PO Q15M PRN; Protocol PRN Reason: per Hypoglycemia Standing Ord. Hydrochlorothiazide (Hydrochlorothiazide 25 Mg Tablet) 25 mg PO DAILY [facility]; Protocol Last Admin: 11/25/22 08:24 Dose: 25 mg Documented By: JAIME Dextrose (D10) 250 mls @ 750 mls/hr IV Q15M PRN; Protocol PRN Reason: per Hypoglycemia Standing Ord. Cefazolin Sodium/Dextrose (Ancef) 2 gm in 50 mls @ 100 mls/hr IV Q8H [facility] Last Infusion: 11/25/22 09:02 Dose: 0 mls/hr Documented By: JAIME Promethazine HCl 6.25 mg/ (Sodium Chloride) 50.25 mls @ 201 mls/hr IV ONCE PRN PRN Reason: Nausea and Vomiting Acetaminophen (Ofirmev) 1,000 mg in 100 mls @ 400 mls/hr IV ONCE PRN PRN Reason: Pain, Moderate (Pain Scale 4-6 Insulin Glargine (Insulin Glargine,Hum.Rec.Anlog 100 Unit/Ml 10 Ml Vial) 50 unit SUBCUT BID [facility] Last Admin: 11/25/22 08:23 Dose: 50 unit Documented By: JAIME Insulin Human Lispro (Insulin Lispro 100 Unit/Ml 3 Ml Vial) 0 unit SUBCUT QIDACHS [facility]; Protocol Last Admin: 11/25/22 08:23 Dose: 2 unit Documented By: JAIME Lidocaine (Lidocaine 4 % Patch Adh..Patch) 1 patch TRANSDERMA DAILY [facility]; Protocol Last Admin: 11/25/22 08:22 Dose: Not Given Documented By: JAIME Non-Admin Reason: Patient Refused Losartan Potassium (Losartan Potassium 25 Mg Tablet) 25 mg PO DAILY [facility]; Protocol Last Admin: 11/25/22 08:24 Dose: 25 mg Documented By: JAIME Melatonin (Melatonin 3 Mg Tablet) 6 mg PO BEDTIME PRN PRN Reason: Insomnia Last Admin: 11/23/22 22:07 Dose: 6 mg Documented By: DARIUS Methadone HCl (Methadone Hcl 20 Mg/2 Ml Oral.Conc) 45 mg PO DAILY [facility] Last Admin: 11/25/22 08:23 Dose: 45 mg Documented By: JAIME Metoprolol Succinate (Metoprolol Succinate Er 25 Mg Tab.Er.24h) 75 mg PO DAILY [facility]; Protocol Last Admin: 11/25/22 08:23 Dose: 75 mg Documented By: JAIME Morphine Sulfate (Morphine Sulfate 2 Mg/Ml Cartridge) 2 mg IVPUSH Q3H PRN; Protocol PRN Reason: Pain, Severe (Pain Scale 7-10) Last Admin: 11/24/22 09:43 Dose: 2 mg Documented By: FLOWER Ondansetron HCl (Ondansetron Hcl 4 Mg/2 Ml Vial) 4 mg IVPUSH Q8H PRN PRN Reason: Nausea and Vomiting Ondansetron HCl (Ondansetron Hcl 4 Mg/2 Ml Vial) 4 mg IVPUSH ONCE PRN PRN Reason: Nausea and Vomiting Oxycodone HCl (Oxycodone Hcl Immed Release 5 Mg Tablet) 5 mg PO Q4H PRN PRN Reason: mod to sev pain Last Admin: 11/23/22 22:07 Dose: 5 mg Documented By: DARIUS Pharmacy Consult (Consult Rx Perform Med Rec) 1 each MISCELLANE ONCE PRN PRN Reason: Consult order Sodium Chloride (0.9 % Sodium Chloride Flush 3 Ml Syringe) 3 ml IVFLUSH QSHIFT [facility] Last Admin: 11/25/22 08:25 Dose: 3 ml Documented By: JAIME Sodium Chloride (0.9 % Sodium Chloride Flush 10 Ml Syringe) 5 ml IVFLUSH TID [facility] Last Admin: 11/25/22 08:25 Dose: 5 ml Documented By: JAIME Labs 11/25/22 06:07 11/25/22 06:07 Labs: Laboratory Results - last 24 hr 11/24/22 11/24/22 11/24/22 11:08 16:08 20:09 MCV MCH MCHC RDW Plt Count MPV Immature Gran % (Auto) Neut % (Auto) Lymph % (Auto) [place] % (Auto) Eos % (Auto) Baso % (Auto) Lymph # (Auto) [place] # (Auto) Eos # (Auto) Baso # (Auto) Abs Immat Gran (auto) Absolute Neuts (auto) Absolute Nucleated RBC Nucleated RBC % (auto) Anion Gap Estim Creat Clear Calc Estimated GFR POC Glucose 127 H 149 H 219 H Fasting Glucose Calcium Total Bilirubin AST ALT Alkaline Phosphatase Total Protein Albumin 11/25/22 11/25/22 11/25/22 06:07 06:07 07:21 MCV 89.9 MCH 28.5 MCHC 31.7 RDW 13.7 Plt Count 210 MPV 9.5 Immature Gran % (Auto) 1.4 H Neut % (Auto) 54.3 Lymph % (Auto) 35.6 [place] % (Auto) 7.4 Eos % (Auto) 1.0 Baso % (Auto) 0.3 Lymph # (Auto) 2.5 [place] # (Auto) 0.5 Eos # (Auto) 0.1 Baso # (Auto) 0.0 Abs Immat Gran (auto) 0.10 H Absolute Neuts (auto) 3.8 Absolute Nucleated RBC 0.000 Nucleated RBC % (auto) 0.0 Anion Gap 14 Estim Creat Clear Calc 75.0 Estimated GFR 50 POC Glucose 129 H Fasting Glucose 122 H Calcium 9.3 Total Bilirubin 0.4 AST 25 ALT 9 Alkaline Phosphatase 80 Total Protein 6.6 Albumin 2.0 L Microbiology Microbiology Results: Microbiology 11/22/22 Unknown Gram Stain - Final Foot Left Routine Culture - Final Staphylococcus aureus 11/22/22 Unknown Gram Stain - Final Foot Right Routine Culture - Final Staphylococcus aureus Procedures Date of Service Date of Service: 11/25/22 Progress Note: A&P Assessment and plan (1) Type 2 diabetes mellitus with foot ulcer: Status: Acute Plan 67 year old male admitted for bilateral diabetic foot infection now POD #3 s/p excisional debridement of the right foot at the dorsal lateral aspect and excisional debridement of the heel of the left foot. Continue local wound care with daily dressing changes. Will monitor for possible further debridement.. Time Spent With Patient Time: Total time managing care of this patient today ____ minutes. Quality Stroke Does the patient have a stroke diagnosis?: No VTE Prior VTE?: No VTE Risk Level:: Medical - moderate - high VTE Device Contraindication: Treatment Not Indicated VTE Drug Contraindication: N/A - Med Ordered
--- NOTE | 2022-11-25 10:47 | P.PNIM_ITS ---
Subjective Subjective Date of Service: 11/25/22 Interval History: No acute issues. Remains afebrile Review of Systems denies chest pain Denies shortness of breath Denies nausea vomiting diarrhea Denies fever chills Physical Exam Vital Signs: Vital Signs: Last Vital Signs Temp 97.6 F 11/25/22 08:00 Pulse 64 11/25/22 08:00 Resp 18 11/25/22 08:00 BP 150/69 H 11/25/22 08:00 Pulse Ox 91 L 11/25/22 08:00 O2 Del Method 11/25/22 08:00 O2 Flow Rate 3 11/22/22 16:00 BMI result Body Mass Index 32.3 Const: Other: awake alert no acute distress Resp: Other: clear to auscultation bilaterally no rales rhonchi or whee Cardio: Other: no S4; positive S1-S2; no S3 murmurs rubs or gallops Skin: Other: see ER photos Extrem: Other: no edema bilaterally Objective Data Active Medications Acetaminophen (Acetaminophen 325 Mg Tablet) 650 mg PO Q6H PRN PRN Reason: Pain, Mild (Pain Scale 1-3) Last Admin: 11/22/22 20:50 Dose: 650 mg Documented By: DARRON Albuterol Sulfate (Albuterol Sulfate (0.083%) 2.5 Mg/3 Ml Vial.Neb) 2.5 mg INHALE ONCE PRN PRN Reason: Wheezing Amlodipine Besylate (Amlodipine Besylate 2.5 Mg Tablet) 2.5 mg PO DAILY [facility]; Protocol Last Admin: 11/25/22 08:24 Dose: 2.5 mg Documented By: JAIME Atorvastatin Calcium (Atorvastatin Calcium 20 Mg Tablet) 20 mg PO DAILY [facility] Last Admin: 11/25/22 08:24 Dose: 20 mg Documented By: JAIME Empagliflozin (Empagliflozin 10 Mg Tablet) 10 mg PO DAILY [facility] Last Admin: 11/25/22 08:24 Dose: 10 mg Documented By: JAIME Enoxaparin Sodium (Enoxaparin Sodium 40 Mg/0.4 Ml Syringe) 40 mg SUBCUT Q24H [facility] Last Admin: 11/25/22 00:23 Dose: 40 mg Documented By: MIRIANRISGerardo Fentanyl (Fentanyl Citrate/Pf 100 Mcg/2 Ml Vial) 25 mcg IVPUSH Q5M PRN; Protocol PRN Reason: Pain, Moderate (Pain Scale 4-6 Last Admin: 11/22/22 13:40 Dose: 25 mcg Documented By: PRASHANT Gabapentin (Gabapentin 300 Mg Capsule) 300 mg PO TID [facility] Last Admin: 11/25/22 08:23 Dose: 300 mg Documented By: JAIME Glucose (Glucose Gel 15 Gm Gel..Gram.) 15 gm PO Q15M PRN; Protocol PRN Reason: per Hypoglycemia Standing Ord. Hydrochlorothiazide (Hydrochlorothiazide 25 Mg Tablet) 25 mg PO DAILY [facility]; Protocol Last Admin: 11/25/22 08:24 Dose: 25 mg Documented By: JAIME Dextrose (D10) 250 mls @ 750 mls/hr IV Q15M PRN; Protocol PRN Reason: per Hypoglycemia Standing Ord. Cefazolin Sodium/Dextrose (Ancef) 2 gm in 50 mls @ 100 mls/hr IV Q8H [facility] Last Infusion: 11/25/22 09:02 Dose: 0 mls/hr Documented By: JAIME Promethazine HCl 6.25 mg/ (Sodium Chloride) 50.25 mls @ 201 mls/hr IV ONCE PRN PRN Reason: Nausea and Vomiting Acetaminophen (Ofirmev) 1,000 mg in 100 mls @ 400 mls/hr IV ONCE PRN PRN Reason: Pain, Moderate (Pain Scale 4-6 Insulin Glargine (Insulin Glargine,Hum.Rec.Anlog 100 Unit/Ml 10 Ml Vial) 50 unit SUBCUT BID [facility] Last Admin: 11/25/22 08:23 Dose: 50 unit Documented By: JAIME Insulin Human Lispro (Insulin Lispro 100 Unit/Ml 3 Ml Vial) 0 unit SUBCUT QIDACHS [facility]; Protocol Last Admin: 11/25/22 08:23 Dose: 2 unit Documented By: JAIME Lidocaine (Lidocaine 4 % Patch Adh..Patch) 1 patch TRANSDERMA DAILY [facility]; Protocol Last Admin: 11/25/22 08:22 Dose: Not Given Documented By: JAIME Non-Admin Reason: Patient Refused Losartan Potassium (Losartan Potassium 25 Mg Tablet) 25 mg PO DAILY [facility]; Protocol Last Admin: 11/25/22 08:24 Dose: 25 mg Documented By: JAIME Melatonin (Melatonin 3 Mg Tablet) 6 mg PO BEDTIME PRN PRN Reason: Insomnia Last Admin: 11/23/22 22:07 Dose: 6 mg Documented By: DARIUS Methadone HCl (Methadone Hcl 20 Mg/2 Ml Oral.Conc) 45 mg PO DAILY [facility] Last Admin: 11/25/22 08:23 Dose: 45 mg Documented By: JAIME Metoprolol Succinate (Metoprolol Succinate Er 25 Mg Tab.Er.24h) 75 mg PO DAILY [facility]; Protocol Last Admin: 11/25/22 08:23 Dose: 75 mg Documented By: JAIME Morphine Sulfate (Morphine Sulfate 2 Mg/Ml Cartridge) 2 mg IVPUSH Q3H PRN; Prot ocol PRN Reason: Pain, Severe (Pain Scale 7-10) Last Admin: 11/24/22 09:43 Dose: 2 mg Documented By: FLOWER Ondansetron HCl (Ondansetron Hcl 4 Mg/2 Ml Vial) 4 mg IVPUSH Q8H PRN PRN Reason: Nausea and Vomiting Ondansetron HCl (Ondansetron Hcl 4 Mg/2 Ml Vial) 4 mg IVPUSH ONCE PRN PRN Reason: Nausea and Vomiting Oxycodone HCl (Oxycodone Hcl Immed Release 5 Mg Tablet) 5 mg PO Q4H PRN PRN Reason: mod to sev pain Last Admin: 11/23/22 22:07 Dose: 5 mg Documented By: DARIUS Pharmacy Consult (Consult Rx Perform Med Rec) 1 each MISCELLANE ONCE PRN PRN Reason: Consult order Sodium Chloride (0.9 % Sodium Chloride Flush 3 Ml Syringe) 3 ml IVFLUSH QSHIFT [facility] Last Admin: 11/25/22 08:25 Dose: 3 ml Documented By: JAIME Sodium Chloride (0.9 % Sodium Chloride Flush 10 Ml Syringe) 5 ml IVFLUSH TID [facility] Last Admin: 11/25/22 08:25 Dose: 5 ml Documented By: JAIME Labs 11/25/22 06:07 11/25/22 06:07 Labs: Laboratory Results - last 24 hr 11/24/22 11/24/22 11/24/22 11:08 16:08 20:09 MCV MCH MCHC RDW Plt Count MPV Immature Gran % (Auto) Neut % (Auto) Lymph % (Auto) [place] % (Auto) Eos % (Auto) Baso % (Auto) Lymph # (Auto) [place] # (Auto) Eos # (Auto) Baso # (Auto) Abs Immat Gran (auto) Absolute Neuts (auto) Absolute Nucleated RBC Nucleated RBC % (auto) Anion Gap Estim Creat Clear Calc Estimated GFR POC Glucose 127 H 149 H 219 H Fasting Glucose Calcium Total Bilirubin AST ALT Alkaline Phosphatase Total Protein Albumin 11/25/22 11/25/22 11/25/22 06:07 06:07 07:21 MCV 89.9 MCH 28.5 MCHC 31.7 RDW 13.7 Plt Count 210 MPV 9.5 Immature Gran % (Auto) 1.4 H Neut % (Auto) 54.3 Lymph % (Auto) 35.6 [place] % (Auto) 7.4 Eos % (Auto) 1.0 Baso % (Auto) 0.3 Lymph # (Auto) 2.5 [place] # (Auto) 0.5 Eos # (Auto) 0.1 Baso # (Auto) 0.0 Abs Immat Gran (auto) 0.10 H Absolute Neuts (auto) 3.8 Absolute Nucleated RBC 0.000 Nucleated RBC % (auto) 0.0 Anion Gap 14 Estim Creat Clear Calc 75.0 Estimated GFR 50 POC Glucose 129 H Fasting Glucose 122 H Calcium 9.3 Total Bilirubin 0.4 AST 25 ALT 9 Alkaline Phosphatase 80 Total Protein 6.6 Albumin 2.0 L Microbiology Microbiology Results: Microbiology 11/22/22 Unknown Gram Stain - Final Foot Left Routine Culture - Final Staphylococcus aureus 11/22/22 Unknown Gram Stain - Final Foot Right Routine Culture - Final Staphylococcus aureus Assessment and Plan (1) Cellulitis of right leg: Status: Acute (2) Type 2 diabetes mellitus with foot ulcer: Status: Acute Plan This is a 67-year-old female with pertinent history of insulin-dependent diabetes mellitus, opioid and cocaine use disorder, history of diabetic foot ulcer with osteomyelitis, essential hypertension presents to the emergency department evaluation of fevers and chills. 1.Sepsis due to right lower extremity cellulitis and left lower extremity diabetic foot ulcer -Sepsis resolved -Ancef 2 g IV q.8 hours() -a total of 6 weeks of therapy for MSSA bacteremia 2.Uncontrolled insulin-dependent diabetes mellitus with hyperglycemia -poor control -increase Lantus to 40 BID and follow -continue lispro correctional scale 3.Cocaine and heroin use disorder -Consulted addiction team and CARE team -methadone as ordered 4.Essential hypertension -resume home meds -adjust as indicated Lovenox 40 mg daily Full code Pt requires ongoing inpatient hospitalization for IV antibiotics to treat osteomyelitis Time Spent With Patient Time: Total time managing care of this patient today ____ minutes. Quality Stroke Does the patient have a stroke diagnosis?: No VTE Prior VTE?: No VTE Risk Level:: Medical - moderate - high VTE Device Contraindication: Treatment Not Indicated VTE Drug Contraindication: N/A - Med Ordered
[2022-11-25 11:09] LABS: Glucose, Whole Blood 194 mg/dL (60-115)
[2022-11-25] MEDS: Morphine Sulfate 2 MG/ML CARTRIDGE IVPUSH (12:44)
[2022-11-25 16:00] VITALS: BP 117/59; PULSE 60; RESP 20; TEMP 36.3; O2SAT 93
[2022-11-25 16:47] LABS: Glucose, Whole Blood 159 mg/dL (60-115)
[2022-11-25 20:00] VITALS: BP 157/70; PULSE 71; RESP 18; TEMP 36.8; O2SAT 94
[2022-11-25 20:41] LABS: Glucose, Whole Blood 148 mg/dL (60-115)
[2022-11-25] MEDS: Melatonin 3 MG TABLET 6 MG PO (21:05)
[2022-11-26 00:18] VITALS: BP 144/74; PULSE 63; RESP 18; TEMP 36.6; O2SAT 94
[2022-11-26] MEDS: Enoxaparin Sodium 40 MG/0.4 ML SYRINGE SUBCUT (00:44)
[2022-11-26] MEDS: 0.9 % Sodium Chloride Flush 3 ML SYRINGE IVFLUSH ×3 (00:44→15:45)
[2022-11-26] MEDS: ceFAZolin Sodium/Dextrose,Iso 2 GM/50 ML PIGGYBACK IV ×3 (00:44→17:01)
[2022-11-26] MEDS: Morphine Sulfate 2 MG/ML CARTRIDGE IVPUSH ×3 (00:53→20:28)
[2022-11-26 07:15] VITALS: BP 143/65; PULSE 60; RESP 17; TEMP 36.3; O2SAT 97
[2022-11-26 07:25] LABS: Glucose, Whole Blood 80 mg/dL (60-115)
[2022-11-26] MEDS: Gabapentin 300 MG CAPSULE PO ×3 (09:49→20:29)
[2022-11-26] MEDS: methADONE HCl 20 MG/2 ML ORAL.CONC 45 MG PO (09:49)
[2022-11-26] MEDS: Metoprolol Succinate ER 25 MG TAB.ER.24H 75 MG PO (09:49)
[2022-11-26] MEDS: Atorvastatin Calcium 20 MG TABLET PO (09:49)
[2022-11-26] MEDS: Insulin Glargine,Hum.rec.anlog 100 UNIT/ML 10 ML VIAL 50 UNIT SUBCUT ×2 (09:50→20:29)
[2022-11-26] MEDS: 0.9 % Sodium Chloride Flush 10 ML SYRINGE 5 ML IVFLUSH ×3 (09:50→20:29)
[2022-11-26] MEDS: Empagliflozin 10 MG TABLET PO (09:50)
[2022-11-26] MEDS: amLODIPine Besylate 2.5 MG TABLET PO (09:50)
[2022-11-26] MEDS: Losartan Potassium 25 MG TABLET PO (09:50)
[2022-11-26] MEDS: hydroCHLOROthiazide 25 MG TABLET PO (09:50)
--- NOTE | 2022-11-26 10:59 | HO.PM.IMPN ---
Subjective Subjective Date of Service: 11/26/22 Interval History: Resting comfortably in bed. Pain control adequate Review of Systems denies chest pain Denies shortness of breath Denies nausea vomiting diarrhea Denies fever chills Physical Exam Vital Signs: Vital Signs: Last Vital Signs Temp 97.3 F 11/26/22 07:15 Pulse 60 11/26/22 07:15 Resp 17 11/26/22 07:15 BP 143/65 H 11/26/22 07:15 Pulse Ox 97 11/26/22 07:15 O2 Del Method 11/26/22 07:15 O2 Flow Rate 3 11/22/22 16:00 BMI result Body Mass Index 32.3 Const: Other: awake alert no acute distress Resp: Other: clear to auscultation bilaterally no rales rhonchi or whee Cardio: Other: no S4; positive S1-S2; no S3 murmurs rubs or gallops Skin: Other: see ER photos Extrem: Other: no edema bilaterally Objective Data Active Medications Acetaminophen (Acetaminophen 325 Mg Tablet) 650 mg PO Q6H PRN PRN Reason: Pain, Mild (Pain Scale 1-3) Last Admin: 11/22/22 20:50 Dose: 650 mg Documented By: DARRON Albuterol Sulfate (Albuterol Sulfate (0.083%) 2.5 Mg/3 Ml Vial.Neb) 2.5 mg INHALE ONCE PRN PRN Reason: Wheezing Amlodipine Besylate (Amlodipine Besylate 2.5 Mg Tablet) 2.5 mg PO DAILY [facility]; Protocol Last Admin: 11/26/22 09:50 Dose: 2.5 mg Documented By: JAIME Atorvastatin Calcium (Atorvastatin Calcium 20 Mg Tablet) 20 mg PO DAILY [facility] Last Admin: 11/26/22 09:49 Dose: 20 mg Documented By: JAIME Empagliflozin (Empagliflozin 10 Mg Tablet) 10 mg PO DAILY [facility] Last Admin: 11/26/22 09:50 Dose: 10 mg Documented By: JAIME Enoxaparin Sodium (Enoxaparin Sodium 40 Mg/0.4 Ml Syringe) 40 mg SUBCUT Q24H [facility] Last Admin: 11/26/22 00:44 Dose: 40 mg Documented By: MIRIANRISGerardo Fentanyl (Fentanyl Citrate/Pf 100 Mcg/2 Ml Vial) 25 mcg IVPUSH Q5M PRN; Protocol PRN Reason: Pain, Moderate (Pain Scale 4-6 Last Admin: 11/22/22 13:40 Dose: 25 mcg Documented By: PRASHANT Gabapentin (Gabapentin 300 Mg Capsule) 300 mg PO TID [facility] Last Admin: 11/26/22 09:49 Dose: 300 mg Documented By: JAIME Glucose (Glucose Gel 15 Gm Gel..Gram.) 15 gm PO Q15M PRN; Protocol PRN Reason: per Hypoglycemia Standing Ord. Hydrochlorothiazide (Hydrochlorothiazide 25 Mg Tablet) 25 mg PO DAILY [facility]; Protocol Last Admin: 11/26/22 09:50 Dose: 25 mg Documented By: JAIME Dextrose (D10) 250 mls @ 750 mls/hr IV Q15M PRN; Protocol PRN Reason: per Hypoglycemia Standing Ord. Cefazolin Sodium/Dextrose (Ancef) 2 gm in 50 mls @ 100 mls/hr IV Q8H [facility] Last Infusion: 11/26/22 10:25 Dose: 0 mls/hr Documented By: JAIME Promethazine HCl 6.25 mg/ (Sodium Chloride) 50.25 mls @ 201 mls/hr IV ONCE PRN PRN Reason: Nausea and Vomiting Acetaminophen (Ofirmev) 1,000 mg in 100 mls @ 400 mls/hr IV ONCE PRN PRN Reason: Pain, Moderate (Pain Scale 4-6 Insulin Glargine (Insulin Glargine,Hum.Rec.Anlog 100 Unit/Ml 10 Ml Vial) 50 unit SUBCUT BID [facility] Last Admin: 11/26/22 09:50 Dose: 50 unit Documented By: JAIME Insulin Human Lispro (Insulin Lispro 100 Unit/Ml 3 Ml Vial) 0 unit SUBCUT QIDACHS [facility]; Protocol Last Admin: 11/26/22 07:31 Dose: Not Given Documented By: JAIME Non-Admin Reason: No Insulin Coverage Lidocaine (Lidocaine 4 % Patch Adh..Patch) 1 patch TRANSDERMA DAILY [facility]; Protocol Last Admin: 11/26/22 09:51 Dose: Not Given Documented By: JAIME Non-Admin Reason: Patient Refused Losartan Potassium (Losartan Potassium 25 Mg Tablet) 25 mg PO DAILY [facility]; Protocol Last Admin: 11/26/22 09:50 Dose: 25 mg Documented By: JAIME Melatonin (Melatonin 3 Mg Tablet) 6 mg PO BEDTIME PRN PRN Reason: Insomnia Last Admin: 11/25/22 21:05 Dose: 6 mg Documented By: RAFA Methadone HCl (Methadone Hcl 20 Mg/2 Ml Oral.Conc) 45 mg PO DAILY [facility] Last Admin: 11/26/22 09:49 Dose: 45 mg Documented By: JAIME Metoprolol Succinate (Metoprolol Succinate Er 25 Mg Tab.Er.24h) 75 mg PO DAILY [facility]; Protocol Last Admin: 11/26/22 09:49 Dose: 75 mg Documented By: JAIME Morphine Sulfate (Morphine Sulfate 2 Mg/Ml Cartridge) 2 mg IVPUSH Q3H PRN; Protocol PRN Reason: Pain, Severe (Pain Scale 7-10) Last Admin: 11/26/22 00:53 Dose: 2 mg Documented By: RAFA Ondansetron HCl (Ondansetron Hcl 4 Mg/2 Ml Vial) 4 mg IVPUSH Q8H PRN PRN Reason: Nausea and Vomiting Ondansetron HCl (Ondansetron Hcl 4 Mg/2 Ml Vial) 4 mg IVPUSH ONCE PRN PRN Reason: Nausea and Vomiting Oxycodone HCl (Oxycodone Hcl Immed Release 5 Mg Tablet) 5 mg PO Q4H PRN PRN Reason: mod to sev pain Last Admin: 11/23/22 22:07 Dose: 5 mg Documented By: DARIUS Pharmacy Consult (Consult Rx Perform Med Rec) 1 each MISCELLANE ONCE PRN PRN Reason: Consult order Sodium Chloride (0.9 % Sodium Chloride Flush 3 Ml Syringe) 3 ml IVFLUSH QSHIFT [facility] Last Admin: 11/26/22 09:50 Dose: 3 ml Documented By: JAIME Sodium Chloride (0.9 % Sodium Chloride Flush 10 Ml Syringe) 5 ml IVFLUSH TID [facility] Last Admin: 11/26/22 09:50 Dose: 5 ml Documented By: JAIME Labs 11/25/22 06:07 11/25/22 06:07 Labs: Laboratory Results - last 24 hr 11/25/22 11/25/22 11/25/22 11:05 16:43 20:37 POC Glucose 194 H 159 H 148 H 11/26/22 07:18 POC Glucose 80 Microbiology Microbiology Results: Microbiology 11/20/22 12:16 Blood Culture - Final Blood - Central Line No growth after 5 days. 11/20/22 12:16 Blood Culture - Final Blood - Venous No growth after 5 days. 11/22/22 Unknown Gram Stain - Final Foot Left Routine Culture - Final Staphylococcus aureus 11/22/22 Unknown Gram Stain - Final Foot Right Routine Culture - Final Staphylococcus aureus Assessment and Plan (1) Sepsis: Status: Acute (2) Cellulitis of right leg: Status: Acute (3) Type 2 diabetes mellitus with foot ulcer: Status: Acute Plan This is a 67-year-old female with pertinent history of insulin-dependent diabetes mellitus, opioid and cocaine use disorder, history of diabetic foot ulcer with osteomyelitis, essential hypertension presents to the emergency department evaluation of fevers and chills. 1.Sepsis due to right lower extremity cellulitis and left lower extremity diabetic foot ulcer -Sepsis resolved -Ancef 2 g IV q.8 hours() -a total of 6 weeks of therapy for MSSA bacteremia 2.Uncontrolled insulin-dependent diabetes mellitus with hyperglycemia -acceptable control -increase Lantus to 40 BID and follow -continue lispro correctional scale 3.Cocaine and heroin use disorder -Consulted addiction team and CARE team -methadone as ordered 4.Essential hypertension -resume home meds -adjust as indicated Lovenox 40 mg daily Full code Pt requires ongoing inpatient hospitalization for IV antibiotics to treat osteomyelitis Time Spent With Patient Time: Total time managing care of this patient today ____ minutes. Quality Stroke Does the patient have a stroke diagnosis?: No VTE Prior VTE?: No VTE Risk Level:: Medical - moderate - high VTE Device Contraindication: Treatment Not Indicated VTE Drug Contraindication: N/A - Med Ordered
[2022-11-26 11:17] LABS: Glucose, Whole Blood 112 mg/dL (60-115)
[2022-11-26] MEDS: Insulin Lispro 100 UNIT/ML 3 ML VIAL SUBCUT ×3 (11:59→20:29)
[2022-11-26 15:47] VITALS: BP 123/60; PULSE 58; RESP 18; TEMP 36.4; O2SAT 95
[2022-11-26 16:57] LABS: Glucose, Whole Blood 143 mg/dL (60-115)
[2022-11-26 19:44] VITALS: BP 122/60; PULSE 65; RESP 18; TEMP 36.4; O2SAT 92
[2022-11-26 20:14] LABS: Glucose, Whole Blood 148 mg/dL (60-115)
[2022-11-27] MEDS: Enoxaparin Sodium 40 MG/0.4 ML SYRINGE SUBCUT (00:53)
[2022-11-27] MEDS: ceFAZolin Sodium/Dextrose,Iso 2 GM/50 ML PIGGYBACK IV ×3 (00:53→16:36)
[2022-11-27] MEDS: 0.9 % Sodium Chloride Flush 3 ML SYRINGE IVFLUSH (00:54)
[2022-11-27 03:34] VITALS: BP 157/73; PULSE 56; RESP 18; TEMP 36.2; O2SAT 95
[2022-11-27] MEDS: Morphine Sulfate 2 MG/ML CARTRIDGE IVPUSH (05:33)
[2022-11-27 07:16] VITALS: BP 135/93; PULSE 65; RESP 16; TEMP 36.2; O2SAT 97
[2022-11-27 07:27] LABS: Glucose, Whole Blood 93 mg/dL (60-115)
[2022-11-27] MEDS: methADONE HCl 20 MG/2 ML ORAL.CONC 45 MG PO (08:09)
[2022-11-27] MEDS: Metoprolol Succinate ER 25 MG TAB.ER.24H 75 MG PO (08:09)
[2022-11-27] MEDS: Gabapentin 300 MG CAPSULE PO ×3 (08:09→20:38)
[2022-11-27] MEDS: Atorvastatin Calcium 20 MG TABLET PO (08:10)
[2022-11-27] MEDS: Lidocaine 4 % Patch ADH..PATCH 1 PATCH TRANSDERMA (08:10)
[2022-11-27] MEDS: amLODIPine Besylate 2.5 MG TABLET PO (08:10)
[2022-11-27] MEDS: Empagliflozin 10 MG TABLET PO (08:10)
[2022-11-27] MEDS: Losartan Potassium 25 MG TABLET PO (08:10)
[2022-11-27] MEDS: hydroCHLOROthiazide 25 MG TABLET PO (08:10)
[2022-11-27] MEDS: Insulin Glargine,Hum.rec.anlog 100 UNIT/ML 10 ML VIAL 50 UNIT SUBCUT ×2 (08:11→20:39)
--- NOTE | 2022-11-27 10:14 | MHC.CM.PN ---
PT AWAITING SNF PLACEMENT FOR IV ABX [facility] IS THE ONLY [facility] WILLING TO TAKE METHADONE PTS AT THIS TIME REFERRAL UPDATED AND REQUEST FOR BED STATUS SENT [facility]IA [facility]
[2022-11-27 11:15] LABS: Glucose, Whole Blood 129 mg/dL (60-115)
[2022-11-27] MEDS: Insulin Lispro 100 UNIT/ML 3 ML VIAL SUBCUT ×3 (11:28→20:38)
--- NOTE | 2022-11-27 13:16 | HO.PM.IMPN ---
Subjective Subjective Date of Service: 11/27/22 Interval History: Complaining of right shoulder pain since admission , pain is localized nonradiating, no acute trauma or fall but feels it is related to position change in bed and also due to transfer, has a lidocaine patch with no significant relief, patient also concerned that he was not being seen by anyone for his foot wounds, denies fever, no chills, no nausea no vomiting tolerating diet no other acute medical issues. Review of Systems Review of Systems: Yes all other systems are reviewed and are negative Physical Exam Vital Signs: Vital Signs: Last Vital Signs Temp 97.1 F 11/27/22 07:16 Pulse 65 11/27/22 07:16 Resp 16 11/27/22 07:16 BP 135/93 H 11/27/22 07:16 Pulse Ox 97 11/27/22 07:16 O2 Del Method 11/27/22 07:16 O2 Flow Rate 3 11/22/22 16:00 BMI result Body Mass Index 32.3 Const: Other: Gen: Awake alert, in no acute distress HEENT: sclera anicteric, moist mucus membranes Neck: supple Lungs: clear to auscultation bilaterally Heart: regular rate and rhythm, no murmurs Abd: soft, non-tender, non-distended Ext: Bilateral foot dressings intact, no drainage noted Skin: warm/well-perfused Neuro: alert and oriented x3, no focal findings Psych: appropriate affect ? Objective Data Active Medications Acetaminophen (Acetaminophen 325 Mg Tablet) 650 mg PO Q6H PRN PRN Reason: Pain, Mild (Pain Scale 1-3) Last Admin: 11/22/22 20:50 Dose: 650 mg Documented By: OZORALTata Albuterol Sulfate (Albuterol Sulfate (0.083%) 2.5 Mg/3 Ml Vial.Neb) 2.5 mg INHALE ONCE PRN PRN Reason: Wheezing Amlodipine Besylate (Amlodipine Besylate 2.5 Mg Tablet) 2.5 mg PO DAILY [facility]; Protocol Last Admin: 11/27/22 08:10 Dose: 2.5 mg Documented By: CHRIS Atorvastatin Calcium (Atorvastatin Calcium 20 Mg Tablet) 20 mg PO DAILY [facility] Last Admin: 11/27/22 08:10 Dose: 20 mg Documented By: CHRIS Empagliflozin (Empagliflozin 10 Mg Tablet) 10 mg PO DAILY [facility] Last Admin: 11/27/22 08:10 Dose: 10 mg Documented By: CHRIS Enoxaparin Sodium (Enoxaparin Sodium 40 Mg/0.4 Ml Syringe) 40 mg SUBCUT Q24H [facility] Last Admin: 11/27/22 00:53 Dose: 40 mg Documented By: ATTILA Gabapentin (Gabapentin 300 Mg Capsule) 300 mg PO TID [facility] Last Admin: 11/27/22 08:09 Dose: 300 mg Documented By: CHRIS Glucose (Glucose Gel 15 Gm Gel..Gram.) 15 gm PO Q15M PRN; Protocol PRN Reason: per Hypoglycemia Standing Ord. Hydrochlorothiazide (Hydrochlorothiazide 25 Mg Tablet) 25 mg PO DAILY [facility]; Protocol Last Admin: 11/27/22 08:10 Dose: 25 mg Documented By: CHRIS Dextrose (D10) 250 mls @ 750 mls/hr IV Q15M PRN; Protocol PRN Reason: per Hypoglycemia Standing Ord. Cefazolin Sodium/Dextrose (Ancef) 2 gm in 50 mls @ 100 mls/hr IV Q8H [facility] Last Infusion: 11/27/22 08:40 Dose: 0 mls/hr Documented By: CHRIS Promethazine HCl 6.25 mg/ (Sodium Chloride) 50.25 mls @ 201 mls/hr IV ONCE PRN PRN Reason: Nausea and Vomiting Acetaminophen (Ofirmev) 1,000 mg in 100 mls @ 400 mls/hr IV ONCE PRN PRN Reason: Pain, Moderate (Pain Scale 4-6 Insulin Glargine (Insulin Glargine,Hum.Rec.Anlog 100 Unit/Ml 10 Ml Vial) 50 unit SUBCUT BID [facility] Last Admin: 11/27/22 08:11 Dose: 50 unit Documented By: CHRIS Insulin Human Lispro (Insulin Lispro 100 Unit/Ml 3 Ml Vial) 0 unit SUBCUT QIDACHS [facility]; Protocol Last Admin: 11/27/22 11:28 Dose: 2 unit Documented By: CHRIS Lidocaine (Lidocaine 4 % Patch Adh..Patch) 1 patch TRANSDERMA DAILY [facility]; Protocol Last Admin: 11/27/22 08:10 Dose: 1 patch Documented By: CHRIS Losartan Potassium (Losartan Potassium 25 Mg Tablet) 25 mg PO DAILY [facility]; Protocol Last Admin: 11/27/22 08:10 Dose: 25 mg Documented By: AVE-HARI Melatonin (Melatonin 3 Mg Tablet) 6 mg PO BEDTIME PRN PRN Reason: Insomnia Last Admin: 11/25/22 21:05 Dose: 6 mg Documented By: ODRISM Methadone HCl (Methadone Hcl 20 Mg/2 Ml Oral.Conc) 45 mg PO DAILY [facility] Last Admin: 11/27/22 08:09 Dose: 45 mg Documented By: AVE-SOFISELA Metoprolol Succinate (Metoprolol Succinate Er 25 Mg Tab.Er.24h) 75 mg PO DAILY [facility]; Protocol Last Admin: 11/27/22 08:09 Dose: 75 mg Documented By: AVE-HARI Morphine Sulfate (Morphine Sulfate 2 Mg/Ml Cartridge) 2 mg IVPUSH Q3H PRN; Protocol PRN Reason: Pain, Severe (Pain Scale 7-10) Last Admin: 11/27/22 05:33 Dose: 2 mg Documented By: ATTILA Ondansetron HCl (Ondansetron Hcl 4 Mg/2 Ml Vial) 4 mg IVPUSH Q8H PRN PRN Reason: Nausea and Vomiting Ondansetron HCl (Ondansetron Hcl 4 Mg/2 Ml Vial) 4 mg IVPUSH ONCE PRN PRN Reason: Nausea and Vomiting Pharmacy Consult (Consult Rx Perform Med Rec) 1 each MISCELLANE ONCE PRN PRN Reason: Consult order Sodium Chloride (0.9 % Sodium Chloride Flush 3 Ml Syringe) 3 ml IVFLUSH QSHIFT [facility] Last Admin: 11/27/22 07:21 Dose: Not Given Documented By: AVE-HARI Non-Admin Reason: See Note Sodium Chloride (0.9 % Sodium Chloride Flush 10 Ml Syringe) 5 ml IVFLUSH TID [facility] Last Admin: 11/27/22 12:15 Dose: Not Given Documented By: CHRIS Non-Admin Reason: See Note Labs 11/25/22 06:07 11/25/22 06:07 Labs: Laboratory Results - last 24 hr 11/26/22 11/26/22 11/27/22 16:53 20:10 07:12 POC Glucose 143 H 148 H 93 11/27/22 11:07 POC Glucose 129 H Assessment and Plan (1) Sepsis: Status: Acute (2) Cellulitis of right leg: Status: Acute (3) Type 2 diabetes mellitus with foot ulcer: Status: Acute Plan This is a 67-year-old female with pertinent history of insulin-dependent diabetes mellitus, opioid and cocaine use disorder, history of diabetic foot ulcer with osteomyelitis, essential hypertension presents to the emergency department evaluation of fevers and chills. 1.Sepsis due to right lower extremity cellulitis and left lower extremity diabetic foot ulcer -Sepsis resolved -Ancef 2 g IV q.8 hours(), total of 6 weeks of therapy for MSSA bacteremia Status post excisional debridement of right foot at the dorsal lateral aspect,and an excisional debridement of the heel of the left foot on 11/22, will continue daily dressing as per General surgery. 2.Uncontrolled insulin-dependent diabetes mellitus with hyperglycemia -better blood sugar control, hemoglobin A1c 8.2 -on Lantus 50 BID and lispro correctional scale 3.Cocaine and heroin use disorder -Consulted addiction team and CARE team -continue methadone as ordered 4.Essential hypertension -stable blood pressure on home meds losartan 25 mg, hydrochlorothiazide 25 mg and metoprolol 75 mg -adjust as indicated 5. Acute kidney injury improving avoid hypotension and nephrotoxins follow BMP 6. Chronic normocytic anemia follow CBC no active bleeding noted 7. Right shoulder pain normal range of motion, will give 1 dose of nsaid cautiously due to renal injury follow clinical course and renal function. Lovenox 40 mg daily Full code Pt requires ongoing inpatient hospitalization for IV antibiotics to treat osteomyelitis Time Spent With Patient Time: Total time managing care of this patient today ____ minutes. Quality Stroke Does the patient have a stroke diagnosis?: No VTE Prior VTE?: No VTE Risk Level:: Medical - moderate - high VTE Device Contraindication: Treatment Not Indicated VTE Drug Contraindication: N/A - Med Ordered
--- NOTE | 2022-11-27 13:26 | PM.EVENT ---
Event Note Date of Service: 11/27/22 Event Note: Patient says he feels well Some pain on both feet He states that his dressings just had been change earlier this morning Will do dressing changes tomorrow Continue current care Time Spent With Patient Time: Total time managing care of this patient today ____ minutes.
--- NOTE | 2022-11-27 13:41 | MHC.CM.PN ---
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 CM ASKED WHAT HE MAY NEED AND HE DID NOT PROVIDE AN ANSWER. CM EXPLAINED THE SNF WILL PROVIDE EVERYTHING HE NEEDS WHILE THERE. HE AGAIN STATES HE IS NOT GOING AND WILL GO LIVE UNDER A BUS . PT WILL APPEAL HIS DC IMM WAS DELIVERED TODAY HE UNDERSTANDS [facility] WILL NOW DETERMINE IF HE SHOULD DC. Original Note: [facility] A BED PENDING HIS [facility]ST [facility] [place] [facility] [place] CM CALLED [facility] [place] [phone] AND SPOKE TO INTAKE (JORGE) CM INFORMED THEY WOULD NEED 90 DAYS OF TOX SCREENS AND 30 DAYS OF DOSING HISTORY FROM PTS HOME CLINIC, [facility] IN [place]. THEY WOULD ALSO NEED TOX SCREEN AND [place] H[place] [facility] [place] DOCUMENTS TO BE FAXED TO [phone] CM CALLED [facility] IN [place] [phone] AND SPOKE TO PTS COUNSELOR, LIT. SHE WAS GIVEN THE FAX NUMBER FOR [facility] [place] AND INDICATED SHE WOULD BE WORKING ON ARRANGING GUEST DOSING TODAY. PT SIGNED AN CARMEN FOR BOTH [facility] [place] [facility] PTS FACE SHEET, TOX REPORT, AND METHADONE DOSING HX WERE FAXED AT 3400 TODAY ALONG WITH A MESSAGE REQUESTING A T/C WHEN ARRANGEMENTS WERE COMPLETE
[2022-11-27] MEDS: NaPROXEN 500 MG TABLET PO (14:50)
[2022-11-27 16:00] VITALS: BP 147/67; PULSE 68; RESP 19; TEMP 36.1; O2SAT 94
[2022-11-27 16:17] LABS: Glucose, Whole Blood 129 mg/dL (60-115)
[2022-11-27 19:43] VITALS: BP 116/56; PULSE 53; RESP 18; TEMP 36.3; O2SAT 92
[2022-11-27 20:29] LABS: Glucose, Whole Blood 130 mg/dL (60-115)
[2022-11-27] MEDS: 0.9 % Sodium Chloride Flush 10 ML SYRINGE 5 ML IVFLUSH (20:39)
[2022-11-28] MEDS: ceFAZolin Sodium/Dextrose,Iso 2 GM/50 ML PIGGYBACK IV ×3 (00:44→14:37)
[2022-11-28] MEDS: Enoxaparin Sodium 40 MG/0.4 ML SYRINGE SUBCUT (00:44)
[2022-11-28 03:51] VITALS: BP 146/62; PULSE 60; RESP 18; TEMP 36.2; O2SAT 97
[2022-11-28 06:33] LABS: Hemoglobin 7.5 g/dl (14.0-18.0); Mean Corpuscular HGB Conc 31.3 g/dl (31.0-36.0); Mean Corpuscular Hemoglobin 27.8 pg (27.0-33.0); Mean Corpuscular Volume 88.9 fL (80.0-98.0); Mean Platelet Volume 9.3 fL (9.4-12.4); Platelet Count 203 X10*3/uL (160-400); Red Cell Distribution Width 13.5 % (11.0-16.0); White Blood Count 5.3 X10*3/uL (4.8-10.8)
[2022-11-28 06:50] LABS: Anion Gap 11 (12-20); Blood Urea Nitrogen 29 mg/dL (9-16); Calcium 8.9 mg/dL (8.4-10.2); Carbon Dioxide 36 mmol/L (22-29); Chloride 97 mmol/L (96-108); Creatinine Clr Calc Pharmacy 95.3; Estimated Glomerular Filt Rate > 60; Glucose Random 121 mg/dL (60-115); Potassium 3.8 mmol/L (3.3-5.1); Sodium 140 mmol/L (135-145)
[2022-11-28 07:21] LABS: Glucose, Whole Blood 157 mg/dL (60-115)
[2022-11-28 07:22] VITALS: BP 151/70; PULSE 67; RESP 18; TEMP 36.2; O2SAT 97
[2022-11-28] MEDS: Insulin Glargine,Hum.rec.anlog 100 UNIT/ML 10 ML VIAL 50 UNIT SUBCUT ×2 (08:06→22:12)
[2022-11-28] MEDS: Insulin Lispro 100 UNIT/ML 3 ML VIAL SUBCUT ×4 (08:06→22:12)
[2022-11-28] MEDS: amLODIPine Besylate 2.5 MG TABLET PO (08:07)
[2022-11-28] MEDS: Atorvastatin Calcium 20 MG TABLET PO (08:07)
[2022-11-28] MEDS: Losartan Potassium 25 MG TABLET PO (08:07)
[2022-11-28] MEDS: Metoprolol Succinate ER 25 MG TAB.ER.24H 75 MG PO (08:07)
[2022-11-28] MEDS: hydroCHLOROthiazide 25 MG TABLET PO (08:07)
[2022-11-28] MEDS: Gabapentin 300 MG CAPSULE PO ×3 (08:07→20:40)
[2022-11-28] MEDS: Empagliflozin 10 MG TABLET PO (08:08)
[2022-11-28 11:32] LABS: Glucose, Whole Blood 135 mg/dL (60-115)
[2022-11-28] MEDS: 0.9 % Sodium Chloride Flush 3 ML SYRINGE IVFLUSH (14:38)
--- NOTE | 2022-11-28 15:04 | HO.PM.IMPN ---
Subjective Subjective Date of Service: 11/28/22 Interval History: Complaining of right shoulder pain with activity, otherwise no other acute issues, no nausea, no vomiting, no abdominal pain tolerating diet, no fevers no chills, stable vitals. Review of Systems Review of Systems: Yes all other systems are reviewed and are negative Physical Exam Vital Signs: Vital Signs: Last Vital Signs Temp 97.1 F 11/28/22 07:22 Pulse 67 11/28/22 07:22 Resp 18 11/28/22 07:22 BP 151/70 H 11/28/22 07:22 Pulse Ox 97 11/28/22 07:22 O2 Del Method 11/28/22 07:22 O2 Flow Rate 3 11/22/22 16:00 BMI result Body Mass Index 32.3 Const: Other: Gen:? Awake alert, in no acute distress HEENT: sclera anicteric, moist mucus membranes Neck: supple Lungs: clear to auscultation bilaterally Heart: regular rate and rhythm, no murmurs Abd: soft, non-tender, non-distended Ext:? Bilateral foot dressings intact, no drainage noted Skin: warm/well-perfused Neuro: alert and oriented x3, no focal findings Psych: appropriate affect ? Objective Data Active Medications Acetaminophen (Acetaminophen 325 Mg Tablet) 650 mg PO Q6H PRN PRN Reason: Pain, Mild (Pain Scale 1-3) Last Admin: 11/22/22 20:50 Dose: 650 mg Documented By: DARRON Albuterol Sulfate (Albuterol Sulfate (0.083%) 2.5 Mg/3 Ml Vial.Neb) 2.5 mg INHALE ONCE PRN PRN Reason: Wheezing Amlodipine Besylate (Amlodipine Besylate 2.5 Mg Tablet) 2.5 mg PO DAILY [facility]; Protocol Last Admin: 11/28/22 08:07 Dose: 2.5 mg Documented By: MECHELLE Atorvastatin Calcium (Atorvastatin Calcium 20 Mg Tablet) 20 mg PO DAILY [facility] Last Admin: 11/28/22 08:07 Dose: 20 mg Documented By: MECHELLE Empagliflozin (Empagliflozin 10 Mg Tablet) 10 mg PO DAILY [facility] Last Admin: 11/28/22 08:08 Dose: 10 mg Documented By: MECHELLE Enoxaparin Sodium (Enoxaparin Sodium 40 Mg/0.4 Ml Syringe) 40 mg SUBCUT Q24H [facility] Last Admin: 11/28/22 00:44 Dose: 40 mg Documented By: DEJON Gabapentin (Gabapentin 300 Mg Capsule) 300 mg PO TID [facility] Last Admin: 11/28/22 14:37 Dose: 300 mg Documented By: MECHELLE Glucose (Glucose Gel 15 Gm Gel..Gram.) 15 gm PO Q15M PRN; Protocol PRN Reason: per Hypoglycemia Standing Ord. Hydrochlorothiazide (Hydrochlorothiazide 25 Mg Tablet) 25 mg PO DAILY [facility]; Protocol Last Admin: 11/28/22 08:07 Dose: 25 mg Documented By: MECHELLE Dextrose (D10) 250 mls @ 750 mls/hr IV Q15M PRN; Protocol PRN Reason: per Hypoglycemia Standing Ord. Promethazine HCl 6.25 mg/ (Sodium Chloride) 50.25 mls @ 201 mls/hr IV ONCE PRN PRN Reason: Nausea and Vomiting Cefazolin Sodium/Dextrose (Ancef) 2 gm in 50 mls @ 100 mls/hr IV Q8H [facility] Last Admin: 11/28/22 14:37 Dose: 100 mls/hr Documented By: MECHELLE Insulin Glargine (Insulin Glargine,Hum.Rec.Anlog 100 Unit/Ml 10 Ml Vial) 50 unit SUBCUT BID [facility] Last Admin: 11/28/22 08:06 Dose: 50 unit Documented By: MECHELLE Insulin Human Lispro (Insulin Lispro 100 Unit/Ml 3 Ml Vial) 0 unit SUBCUT QIDACHS [facility]; Protocol Last Admin: 11/28/22 12:08 Dose: 2 unit Documented By: MECHELLE Lidocaine (Lidocaine 4 % Patch Adh..Patch) 1 patch TRANSDERMA DAILY [facility]; Protocol Last Admin: 11/28/22 08:27 Dose: Not Given Documented By: MECHELLE Non-Admin Reason: Patient Refused Losartan Potassium (Losartan Potassium 25 Mg Tablet) 25 mg PO DAILY [facility]; Protocol Last Admin: 11/28/22 08:07 Dose: 25 mg Documented By: MECHELLE Melatonin (Melatonin 3 Mg Tablet) 6 mg PO BEDTIME PRN PRN Reason: Insomnia Last Admin: 11/25/22 21:05 Dose: 6 mg Documented By: MIRIANRISGerardo Methadone HCl (Methadone Hcl 20 Mg/2 Ml Oral.Conc) 45 mg PO DAILY [facility] Last Admin: 11/28/22 08:17 Dose: Not Given Documented By: MECHELLE Non-Admin Reason: Patient Refused Metoprolol Succinate (Metoprolol Succinate Er 25 Mg Tab.Er.24h) 75 mg PO DAILY [facility]; Protocol Last Admin: 11/28/22 08:07 Dose: 75 mg Documented By: MECHELLE Ondansetron HCl (Ondansetron Hcl 4 Mg/2 Ml Vial) 4 mg IVPUSH Q8H PRN PRN Reason: Nausea and Vomiting Ondansetron HCl (Ondansetron Hcl 4 Mg/2 Ml Vial) 4 mg IVPUSH ONCE PRN PRN Reason: Nausea and Vomiting Pharmacy Consult (Consult Rx Perform Med Rec) 1 each MISCELLANE ONCE PRN PRN Reason: Consult order Sodium Chloride (0.9 % Sodium Chloride Flush 3 Ml Syringe) 3 ml IVFLUSH QSHIFT ON [facility] Last Admin: 11/28/22 14:38 Dose: 3 ml Documented By: MECHELLE Sodium Chloride (0.9 % Sodium Chloride Flush 10 Ml Syringe) 5 ml IVFLUSH TID ON [facility] Last Admin: 11/28/22 14:45 Dose: Not Given Documented By: MECHELLE Non-Admin Reason: Previously Administered Labs 11/28/22 05:48 11/28/22 05:48 Labs: Laboratory Results - last 24 hr 11/27/22 11/27/22 11/28/22 16:13 20:21 05:48 MCV 88.9 MCH 27.8 MCHC 31.3 RDW 13.5 Plt Count 203 MPV 9.3 L Absolute Nucleated RBC 0.000 Nucleated RBC % (auto) 0.0 Anion Gap Estim Creat Clear Calc Estimated GFR POC Glucose 129 H 130 H Random Glucose Calcium 11/28/22 11/28/22 11/28/22 05:48 07:18 11:04 MCV MCH MCHC RDW Plt Count MPV Absolute Nucleated RBC Nucleated RBC % (auto) Anion Gap 11 L Estim Creat Clear Calc 95.3 Estimated GFR > 60 POC Glucose 157 H 135 H Random Glucose 121 H Calcium 8.9 Assessment and Plan (1) Sepsis: Status: Acute (2) Cellulitis of right leg: Status: Acute (3) Type 2 diabetes mellitus with foot ulcer: Status: Acute Plan This is a 67-year-old female with pertinent history of insulin-dependent diabetes mellitus, opioid and cocaine use disorder, history of diabetic foot ulcer with osteomyelitis, essential hypertension presents to the emergency department evaluation of fevers and chills. 1.Sepsis due to right lower extremity cellulitis and left lower extremity diabetic foot ulcer -Sepsis resolved -Ancef 2 g IV q.8 hours(), total of 6 weeks of therapy for MSSA bacteremia Status post excisional debridement of right foot at the dorsal lateral aspect,and an excisional debridement of the heel of the left foot on 11/22, will continue daily dressing as per General surgery. 2. insulin-dependent diabetes mellitus with good blood sugar control -hemoglobin A1c 8.2 -on Lantus 50 BID, GERD and lispro correctional scale 3.Cocaine and heroin use disorder -continue methadone as ordered 4.Essential hypertension -stable blood pressure on home meds losartan 25 mg, hydrochlorothiazide 25 mg and metoprolol 75 mg 5. Acute kidney injury resolved, avoid hypotension and nephrotoxins 6. Chronic normocytic anemia follow CBC no active bleeding noted 7. Right shoulder pain normal range of motion, will add as needed Ativan Lovenox 40 mg daily Full code Pt requires ongoing inpatient hospitalization for IV antibiotics to treat osteomyelitis Time Spent With Patient Time: Total time managing care of this patient today ____ minutes. Quality Stroke Does the patient have a stroke diagnosis?: No VTE Prior VTE?: No VTE Risk Level:: Medical - moderate - high VTE Device Contraindication: Treatment Not Indicated VTE Drug Contraindication: N/A - Med Ordered
--- NOTE | 2022-11-28 15:27 | MHC.CM.PN ---
CM MET WITH PT THIS AM, HE IS NOW AGREEABLE TO [facility] BUT DISAPPOINTED THAT WAS THE ONLY ACCEPTING REHAB. [facility] OBTAINED AUTH AND ACCEPTING PENDING [facility] APPROVAL FOR GUEST DOSING. THIS CM CALLED [facility] TO ENSURE THEY HAD THE DOCUMENTS THEY NEEDED [facility] .EVE FROM [facility] STATES THEY ARE STILL WAITING ON DOCUMENTS FROM [facility], SOME WERE RECEIVED BUT NOT ALL THEY NEEDED. EVE ALSO STATES THEY TOLD [facility] SPECIFICALLY WHAT THEY NEEDED. THIS CM CALLED [facility] TO INQUIRE IF THE DOCUMENTS WERE SENT WITH NO RETURN CALL. MESSAGE LEFT X 2. DP: UNABLE TO DC PT TO THE [facility] UNTIL [facility] GIVES THE GO AHEAD, [facility] CLOSED AT 3 PM. [facility] NOTIFIED. MD AND RN NOTIFIED. PT NOTIFIED AND UPSET WITH SITUATION STATING THIS IS WHY i SHOULD BE ABLE TO GO HOME WITH MY IV SUPPORT OFFERED WITH NO EFFECT. DISMISSED THIS CM. EMILY FROM [facility] UPDATED WELL. CM WILL CONTINUE TO FOLLOW.
[2022-11-28 15:34] VITALS: BP 134/63; PULSE 60; RESP 14; TEMP 36.2; O2SAT 94
--- NOTE | 2022-11-28 15:37 | PM.PNGS ---
Subjective Subjective Date of Service: 11/28/22 Interval history: No new complaints Says he does not want to go to [place] for rehab Physical Exam Vital Signs: Vital Signs: Last Vital Signs Temp 97.2 F 11/28/22 15:34 Pulse 60 11/28/22 15:34 Resp 14 11/28/22 15:34 BP 134/63 11/28/22 15:34 Pulse Ox 94 11/28/22 15:34 O2 Del Method 11/28/22 15:34 O2 Flow Rate 3 11/22/22 16:00 BMI result Body Mass Index 32.3 Const: General: comfortable and no acute distress Resp: Effort & Inspection: normal respiratory effort Cardio: Rate: regular rate GI: Palpation (GI): Soft to palpation, not firm, nontender and no guarding Extrem: Other: Open debridement wound right foot near the dorsum laterally appears clean, no residual necrotic tissue Large open debridement wound on left heel and posterior foot also much shrimp cleaner some scanty nonviable tissue on the heel Objective Data Active Medications Acetaminophen (Acetaminophen 325 Mg Tablet) 650 mg PO Q6H PRN PRN Reason: Pain, Mild (Pain Scale 1-3) Last Admin: 11/22/22 20:50 Dose: 650 mg Documented By: DARRON Albuterol Sulfate (Albuterol Sulfate (0.083%) 2.5 Mg/3 Ml Vial.Neb) 2.5 mg INHALE ONCE PRN PRN Reason: Wheezing Amlodipine Besylate (Amlodipine Besylate 2.5 Mg Tablet) 2.5 mg PO DAILY [facility]; Protocol Last Admin: 11/28/22 08:07 Dose: 2.5 mg Documented By: MECHELLE Atorvastatin Calcium (Atorvastatin Calcium 20 Mg Tablet) 20 mg PO DAILY [facility] Last Admin: 11/28/22 08:07 Dose: 20 mg Documented By: MECHELLE Empagliflozin (Empagliflozin 10 Mg Tablet) 10 mg PO DAILY [facility] Last Admin: 11/28/22 08:08 Dose: 10 mg Documented By: MECHELLE Enoxaparin Sodium (Enoxaparin Sodium 40 Mg/0.4 Ml Syringe) 40 mg SUBCUT Q24H [facility] Last Admin: 11/28/22 00:44 Dose: 40 mg Documented By: DEJON Gabapentin (Gabapentin 300 Mg Capsule) 300 mg PO TID [facility] Last Admin: 11/28/22 14:37 Dose: 300 mg Documented By: MECHELLE Glucose (Glucose Gel 15 Gm Gel..Gram.) 15 gm PO Q15M PRN; Protocol PRN Reason: per Hypoglycemia Standing Ord. Hydrochlorothiazide (Hydrochlorothiazide 25 Mg Tablet) 25 mg PO DAILY [facility]; Protocol Last Admin: 11/28/22 08:07 Dose: 25 mg Documented By: MECHELLE Dextrose (D10) 250 mls @ 750 mls/hr IV Q15M PRN; Protocol PRN Reason: per Hypoglycemia Standing Ord. Promethazine HCl 6.25 mg/ (Sodium Chloride) 50.25 mls @ 201 mls/hr IV ONCE PRN PRN Reason: Nausea and Vomiting Cefazolin Sodium/Dextrose (Ancef) 2 gm in 50 mls @ 100 mls/hr IV Q8H [facility] Last Infusion: 11/28/22 15:14 Dose: 0 mls/hr Documented By: MECHELLE Insulin Glargine (Insulin Glargine,Hum.Rec.Anlog 100 Unit/Ml 10 Ml Vial) 50 unit SUBCUT BID [facility] Last Admin: 11/28/22 08:06 Dose: 50 unit Documented By: MECHELLE Insulin Human Lispro (Insulin Lispro 100 Unit/Ml 3 Ml Vial) 0 unit SUBCUT QIDACHS [facility]; Protocol Last Admin: 11/28/22 12:08 Dose: 2 unit Documented By: MECHELLE Lidocaine (Lidocaine 4 % Patch Adh..Patch) 1 patch TRANSDERMA DAILY [facility]; Protocol Last Admin: 11/28/22 08:27 Dose: Not Given Documented By: MECHELLE Non-Admin Reason: Patient Refused Losartan Potassium (Losartan Potassium 25 Mg Tablet) 25 mg PO DAILY [facility]; Protocol Last Admin: 11/28/22 08:07 Dose: 25 mg Documented By: MECHELLE Melatonin (Melatonin 3 Mg Tablet) 6 mg PO BEDTIME PRN PRN Reason: Insomnia Last Admin: 11/25/22 21:05 Dose: 6 mg Documented By: RAFA Methadone HCl (Methadone Hcl 20 Mg/2 Ml Oral.Conc) 45 mg PO DAILY [facility] Last Admin: 11/28/22 08:17 Dose: Not Given Documented By: MECHELLE Non-Admin Reason: Patient Refused Metoprolol Succinate (Metoprolol Succinate Er 25 Mg Tab.Er.24h) 75 mg PO DAILY [facility]; Protocol Last Admin: 11/28/22 08:07 Dose: 75 mg Documented By: MECHELLE Ondansetron HCl (Ondansetron Hcl 4 Mg/2 Ml Vial) 4 mg IVPUSH Q8H PRN PRN Reason: Nausea and Vomiting Ondansetron HCl (Ondansetron Hcl 4 Mg/2 Ml Vial) 4 mg IVPUSH ONCE PRN PRN Reason: Nausea and Vomiting Pharmacy Consult (Consult Rx Perform Med Rec) 1 each MISCELLANE ONCE PRN PRN Reason: Consult order Sodium Chloride (0.9 % Sodium Chloride Flush 3 Ml Syringe) 3 ml IVFLUSH QSHIFT [facility] Last Admin: 11/28/22 14:38 Dose: 3 ml Documented By: MECHELLE Sodium Chloride (0.9 % Sodium Chloride Flush 10 Ml Syringe) 5 ml IVFLUSH TID [facility] Last Admin: 11/28/22 14:45 Dose: Not Given Documented By: MECHELLE Non-Admin Reason: Previously Administered Labs 11/28/22 05:48 11/28/22 05:48 Labs: Laboratory Results - last 24 hr 11/27/22 11/27/22 11/28/22 16:13 20:21 05:48 MCV 88.9 MCH 27.8 MCHC 31.3 RDW 13.5 Plt Count 203 MPV 9.3 L Absolute Nucleated RBC 0.000 Nucleated RBC % (auto) 0.0 Anion Gap Estim Creat Clear Calc Estimated GFR POC Glucose 129 H 130 H Random Glucose Calcium 11/28/22 11/28/22 11/28/22 05:48 07:18 11:04 MCV MCH MCHC RDW Plt Count MPV Absolute Nucleated RBC Nucleated RBC % (auto) Anion Gap 11 L Estim Creat Clear Calc 95.3 Estimated GFR > 60 POC Glucose 157 H 135 H Random Glucose 121 H Calcium 8.9 Procedures Date of Service Date of Service: 11/28/22 Progress Note: A&P Assessment and plan (1) DM foot: Status: Acute Assessment and Plan: Open wounds as described above after debridement Silver alginate dressings placed on both the left and right feet Both feet wrapped in Kerlix roll and Adiel bandage He had been instructed to keep the heel off of the bed Wound care He says he is to [place] for rehab- does not want to go there Time Spent With Patient Time: Total time managing care of this patient today ____ minutes. Quality Stroke Does the patient have a stroke diagnosis?: No VTE Prior VTE?: No VTE Risk Level:: Medical - moderate - high VTE Device Contraindication: Treatment Not Indicated VTE Drug Contraindication: N/A - Med Ordered
[2022-11-28 16:30] LABS: Glucose, Whole Blood 125 mg/dL (60-115)
[2022-11-28 19:42] VITALS: BP 156/72; PULSE 56; RESP 15; TEMP 37; O2SAT 96
[2022-11-28] MEDS: Acetaminophen 325 MG TABLET 650 MG PO (20:40)
[2022-11-28] MEDS: Melatonin 3 MG TABLET 6 MG PO (20:40)
[2022-11-28 21:00] LABS: Glucose, Whole Blood 169 mg/dL (60-115)
[2022-11-28] MEDS: 0.9 % Sodium Chloride Flush 10 ML SYRINGE 5 ML IVFLUSH (22:12)
[2022-11-29] MEDS: ceFAZolin Sodium/Dextrose,Iso 2 GM/50 ML PIGGYBACK IV ×4 (00:08→22:41)
[2022-11-29] MEDS: Enoxaparin Sodium 40 MG/0.4 ML SYRINGE SUBCUT (00:09)
[2022-11-29] MEDS: 0.9 % Sodium Chloride Flush 3 ML SYRINGE IVFLUSH ×3 (00:18→16:50)
[2022-11-29 04:00] VITALS: BP 147/69; PULSE 70; RESP 18; TEMP 36.6; O2SAT 95
[2022-11-29] MEDS: Acetaminophen 325 MG TABLET 650 MG PO ×3 (06:20→23:15)
[2022-11-29 07:18] VITALS: BP 147/70; PULSE 60; RESP 18; TEMP 36.3; O2SAT 94
[2022-11-29 07:25] LABS: Glucose, Whole Blood 118 mg/dL (60-115)
[2022-11-29] MEDS: Losartan Potassium 25 MG TABLET PO (08:20)
[2022-11-29] MEDS: Metoprolol Succinate ER 25 MG TAB.ER.24H 75 MG PO (08:20)
[2022-11-29] MEDS: Gabapentin 300 MG CAPSULE PO ×3 (08:20→21:16)
[2022-11-29] MEDS: Atorvastatin Calcium 20 MG TABLET PO (08:20)
[2022-11-29] MEDS: Empagliflozin 10 MG TABLET PO (08:21)
[2022-11-29] MEDS: hydroCHLOROthiazide 25 MG TABLET PO (08:21)
[2022-11-29] MEDS: amLODIPine Besylate 2.5 MG TABLET PO (08:21)
[2022-11-29] MEDS: Insulin Glargine,Hum.rec.anlog 100 UNIT/ML 10 ML VIAL 50 UNIT SUBCUT (08:21)
[2022-11-29] MEDS: 0.9 % Sodium Chloride Flush 10 ML SYRINGE 5 ML IVFLUSH ×3 (08:25→22:41)
[2022-11-29 11:14] LABS: Glucose, Whole Blood 134 mg/dL (60-115)
--- NOTE | 2022-11-29 12:35 | MHC.CM.PN ---
Addendum entered by Angela Blackwell RN 11/29/22 14:35: PATIENT REFUSING [facility] NOW OFFERING. LIAISON AWARE THAT [facility] HAD GONE FOR [facility] TO ACCEPT BUT THAT PATIENT IS REFUSING TO DC SO FAR OUT. NO WORD FROM [facility] OR FROM [facility] ON STATUS OF ABILITY TO OFFER SERVICES PATIENT REFUSES HIS METHADONE TODAY SAYS HE IS NO LONGER ON IT. ALSO REFUSED [facility] BUT IS AWARE THAT THIS IS HIS ONLY OPTION LOCALLY. AGREES TO GO IF THEY CAN OFFER. MESSAGE FROM [facility] LIAISON TO CALL HER AT [phone] CALL AND MESSAGE LEFT FOR A RETURN CALL TO REVIEW STATUS OF REFERRAL. Original Note: TWO MESSAGES LEFT FOR [facility] @ [phone] TO CALL THIS SCHOOL AGE [employer]ER BACK CASE MANAGEMENT AWARE THAT [facility] DOES NOT YET HAVE ALL DOCUMENTS NECESSARY TO OFFER GUEST DOSING OF YESTERDAY CM FOLLOWING ALONG TO RESOLVE AND DC PATIENT TO SNF
[2022-11-29 16:00] VITALS: BP 120/70; PULSE 69; RESP 18; TEMP 36.7; O2SAT 94
[2022-11-29 16:20] LABS: Glucose, Whole Blood 155 mg/dL (60-115)
--- NOTE | 2022-11-29 16:33 | HO.PM.IMPN ---
Subjective Subjective Date of Service: 11/29/22 Interval History: Offers no acute complaints persistent right shoulder pain with activity, no fevers, no chills, no other acute issues overnight patient refused to go to rehab in [place] wants to be placed locally. Review of Systems Review of Systems: Yes all other systems are reviewed and are negative Physical Exam Vital Signs: Vital Signs: Last Vital Signs Temp 98.1 F 11/29/22 16:00 Pulse 69 11/29/22 16:00 Resp 18 11/29/22 16:00 BP 120/70 11/29/22 16:00 Pulse Ox 94 11/29/22 16:00 O2 Del Method 11/29/22 16:00 O2 Flow Rate 3 11/22/22 16:00 BMI result Body Mass Index 32.3 Const: Other: Gen:? Awake alert, in no acute distress HEENT: sclera anicteric, moist mucus membranes Neck: supple Lungs: clear to auscultation bilaterally Heart: regular rate and rhythm, no murmurs Abd: soft, non-tender, non-distended Ext:? Bilateral foot dressings intact, no drainage noted Skin: warm/well-perfused Neuro: alert and oriented x3, no focal findings Psych: appropriate affect ? Objective Data Active Medications Acetaminophen (Acetaminophen 325 Mg Tablet) 650 mg PO Q6H PRN PRN Reason: Pain, Mild (Pain Scale 1-3) Last Admin: 11/29/22 06:20 Dose: 650 mg Documented By: ISIDRO Amlodipine Besylate (Amlodipine Besylate 2.5 Mg Tablet) 2.5 mg PO DAILY [facility]; Protocol Last Admin: 11/29/22 08:21 Dose: 2.5 mg Documented By: FLOWER Atorvastatin Calcium (Atorvastatin Calcium 20 Mg Tablet) 20 mg PO DAILY [facility] Last Admin: 11/29/22 08:20 Dose: 20 mg Documented By: FLOWER Empagliflozin (Empagliflozin 10 Mg Tablet) 10 mg PO DAILY [facility] Last Admin: 11/29/22 08:21 Dose: 10 mg Documented By: FLOWER Enoxaparin Sodium (Enoxaparin Sodium 40 Mg/0.4 Ml Syringe) 40 mg SUBCUT Q24H [facility] Last Admin: 11/29/22 00:09 Dose: 40 mg Documented By: ISIDRO Gabapentin (Gabapentin 300 Mg Capsule) 300 mg PO TID [facility] Last Admin: 11/29/22 14:31 Dose: 300 mg Documented By: FLOWER Glucose (Glucose Gel 15 Gm Gel..Gram.) 15 gm PO Q15M PRN; Protocol PRN Reason: per Hypoglycemia Standing Ord. Hydrochlorothiazide (Hydrochlorothiazide 25 Mg Tablet) 25 mg PO DAILY [facility]; Protocol Last Admin: 11/29/22 08:21 Dose: 25 mg Documented By: FLOWER Dextrose (D10) 250 mls @ 750 mls/hr IV Q15M PRN; Protocol PRN Reason: per Hypoglycemia Standing Ord. Promethazine HCl 6.25 mg/ (Sodium Chloride) 50.25 mls @ 201 mls/hr IV ONCE PRN PRN Reason: Nausea and Vomiting Cefazolin Sodium/Dextrose (Ancef) 2 gm in 50 mls @ 100 mls/hr IV Q8H [facility] Last Infusion: 11/29/22 15:12 Dose: 0 mls/hr Documented By: FLOWER Insulin Glargine (Insulin Glargine,Hum.Rec.Anlog 100 Unit/Ml 10 Ml Vial) 50 unit SUBCUT BID [facility] Last Admin: 11/29/22 08:21 Dose: 50 unit Documented By: FLOWER Insulin Human Lispro (Insulin Lispro 100 Unit/Ml 3 Ml Vial) 0 unit SUBCUT QIDACHS [facility]; Protocol Last Admin: 11/29/22 14:36 Dose: Not Given Documented By: FLOWER Non-Admin Reason: No Insulin Coverage Lidocaine (Lidocaine 4 % Patch Adh..Patch) 1 patch TRANSDERMA DAILY [facility]; Protocol Last Admin: 11/29/22 08:21 Dose: Not Given Documented By: FLOWER Non-Admin Reason: Patient Refused Losartan Potassium (Losartan Potassium 25 Mg Tablet) 25 mg PO DAILY [facility]; Protocol Last Admin: 11/29/22 08:20 Dose: 25 mg Documented By: FLOWER Melatonin (Melatonin 3 Mg Tablet) 6 mg PO BEDTIME PRN PRN Reason: Insomnia Last Admin: 11/28/22 20:40 Dose: 6 mg Documented By: FANNY Methadone HCl (Methadone Hcl 20 Mg/2 Ml Oral.Conc) 45 mg PO DAILY [facility] Last Admin: 11/29/22 08:22 Dose: Not Given Documented By: FLOWER Non-Admin Reason: Patient Refused Metoprolol Succinate (Metoprolol Succinate Er 25 Mg Tab.Er.24h) 75 mg PO DAILY [facility]; Protocol Last Admin: 11/29/22 08:20 Dose: 75 mg Documented By: FLOWER Ondansetron HCl (Ondansetron Hcl 4 Mg/2 Ml Vial) 4 mg IVPUSH Q8H PRN PRN Reason: Nausea and Vomiting Ondansetron HCl (Ondansetron Hcl 4 Mg/2 Ml Vial) 4 mg IVPUSH ONCE PRN PRN Reason: Nausea and Vomiting Pharmacy Consult (Consult Rx Perform Med Rec) 1 each MISCELLANE ONCE PRN PRN Reason: Consult order Sodium Chloride (0.9 % Sodium Chloride Flush 3 Ml Syringe) 3 ml IVFLUSH QSHIFT [facility] Last Admin: 11/29/22 08:21 Dose: 3 ml Documented By: FLOWER Sodium Chloride (0.9 % Sodium Chloride Flush 10 Ml Syringe) 5 ml IVFLUSH TID [facility] Last Admin: 11/29/22 14:31 Dose: 5 ml Documented By: FLOWER Labs 11/28/22 05:48 11/28/22 05:48 Labs: Laboratory Results - last 24 hr 11/28/22 11/29/22 11/29/22 20:53 07:16 11:09 POC Glucose 169 H 118 H 134 H 11/29/22 16:13 POC Glucose 155 H Assessment and Plan (1) Sepsis: Status: Acute (2) Cellulitis of right leg: Status: Acute (3) Type 2 diabetes mellitus with foot ulcer: Status: Acute Plan 67-year-old female with pertinent history of insulin-dependent diabetes mellitus, opioid and cocaine use disorder, history of diabetic foot ulcer with osteomyelitis, essential hypertension presents to the emergency department evaluation of fevers and chills. 1.Sepsis due to right lower extremity cellulitis and left lower extremity diabetic foot ulcer -Sepsis resolved -Ancef 2 g IV q.8 hours(), total of 6 weeks of therapy for MSSA bacteremia Status post excisional debridement of right foot at the dorsal lateral aspect,and an excisional debridement of the heel of the left foot on 11/22, Dr. Mathur did dressing on 11/28 with silver alginate on both left and right feet wrapped in Kerlix roll and Adiel bandage, recommend to keep heel off the bed, outpatient wound care 2. insulin-dependent diabetes mellitus with good blood sugar control -hemoglobin A1c 8.2 -on Lantus 50 BID, GERD and lispro correctional scale 3.Cocaine and heroin use disorder -continue methadone 4.Essential hypertension -stable blood pressure on home meds losartan 25 mg, hydrochlorothiazide 25 mg and metoprolol 75 mg 5. Acute kidney injury resolved, avoid hypotension and nephrotoxins. 6. Chronic normocytic anemia follow CBC no active bleeding noted 7. Right shoulder pain normal range of motion, prn motrin. Lovenox 40 mg daily Full code Pt. we vomited requires ongoing inpatient hospitalization for IV antibiotics to treat osteomyelitis, patient refused to go to rehab in [facility] looking for safe placement. Time Spent With Patient Time: Total time managing care of this patient today ____ minutes. Quality Stroke Does the patient have a stroke diagnosis?: No VTE Prior VTE?: No VTE Risk Level:: Medical - moderate - high VTE Device Contraindication: Treatment Not Indicated VTE Drug Contraindication: N/A - Med Ordered
[2022-11-29] MEDS: Insulin Lispro 100 UNIT/ML 3 ML VIAL SUBCUT (16:49)
[2022-11-29 20:28] LABS: Glucose, Whole Blood 100 mg/dL (60-115)
--- NOTE | 2022-11-29 21:13 | PC.NURSE ---
pt's hs blood sugar was 100. notified and 10pm jose held.
[2022-11-29] MEDS: Melatonin 3 MG TABLET 6 MG PO (23:15)
[2022-11-30] MEDS: Enoxaparin Sodium 40 MG/0.4 ML SYRINGE SUBCUT (00:19)
[2022-11-30 03:37] VITALS: BP 136/60; PULSE 62; RESP 17; TEMP 36.6; O2SAT 94
[2022-11-30 07:16] VITALS: BP 148/71; PULSE 58; RESP 16; TEMP 36.2; O2SAT 95
[2022-11-30 07:22] LABS: Glucose, Whole Blood 120 mg/dL (60-115)
[2022-11-30] MEDS: ceFAZolin Sodium/Dextrose,Iso 2 GM/50 ML PIGGYBACK IV ×2 (08:09→15:19)
[2022-11-30] MEDS: Losartan Potassium 25 MG TABLET PO (08:10)
[2022-11-30] MEDS: Empagliflozin 10 MG TABLET PO (08:10)
[2022-11-30] MEDS: Atorvastatin Calcium 20 MG TABLET PO (08:10)
[2022-11-30] MEDS: amLODIPine Besylate 2.5 MG TABLET PO (08:10)
[2022-11-30] MEDS: hydroCHLOROthiazide 25 MG TABLET PO (08:10)
[2022-11-30] MEDS: Metoprolol Succinate ER 25 MG TAB.ER.24H 75 MG PO (08:10)
[2022-11-30] MEDS: Acetaminophen 325 MG TABLET 650 MG PO ×2 (08:10→17:18)
[2022-11-30] MEDS: Gabapentin 300 MG CAPSULE PO ×2 (08:10→15:19)
[2022-11-30] MEDS: methADONE HCl 20 MG/2 ML ORAL.CONC 45 MG PO (08:17)
[2022-11-30] MEDS: Insulin Glargine,Hum.rec.anlog 100 UNIT/ML 10 ML VIAL 50 UNIT SUBCUT (08:18)
[2022-11-30] MEDS: 0.9 % Sodium Chloride Flush 3 ML SYRINGE IVFLUSH ×2 (08:19→15:20)
[2022-11-30 11:25] LABS: Glucose, Whole Blood 144 mg/dL (60-115)
[2022-11-30 14:43] LABS: COVID-19 Test Negative (Negative); IDNOW Serial# BCCEAD1C
--- NOTE | 2022-11-30 15:04 | MHC.CM.PN ---
Addendum entered by Angela Blackwell RN 11/30/22 15:32: DC SUMMARY, COVID RESULTS, AND LAST DOSE LETTER FAXED TO JEREMY AT [facility] @[phone] PER REQUEST OF AGENCY Original Note: [facility] TODAY VIA [facility] 1730 REQUEST PATIENT, RN, AND UNIT AWARE. IMM 11/29 IN CHART
--- NOTE | 2022-11-30 15:05 | PM.DS ---
DS: Providers Provider Date of Service: 11/30/22 Date of admission: 11/12/22 00:28 Date of discharge: 11/30/22 Primary care physician: Corby Little MD Consults: 11/12/22 00:28 Addiction Medicine Routine Consulting Provider: Addiction Covering Reason for consultation: cocaine use disorder 11/12/22 03:51 Consult to Care Team Routine Comment: Reason for consultation: substance use disorder 11/13/22 12:58 Consult to Infectious Diseases Stat Consulting Provider: [facility] Infectious Disease Reason for consultation: ?osteomyelitis Has provider been notified: Yes 11/14/22 13:14 Consult to Vascular Surgery Stat Consulting Provider: [facility] Vascular Services Reason for consultation: Osteo Has provider been notified: Yes 11/21/22 11:48 Consult to Wound Care Routine Consulting Provider: [facility] Wound Care Management Reason for consultation: infected DM foot wounds 11/21/22 13:13 Consult to General Surgery Routine Consulting Provider: [facility] General Surgeons Reason for consultation: DFU, purulent? needs debridement. MSSA BCx positive DS: Diagnosis Discharge Diagnosis (1) Sepsis: Status: Acute (2) Cellulitis of right leg: Status: Acute (3) Type 2 diabetes mellitus with foot ulcer: Status: Acute (4) MSSA bacteremia: Status: Acute (5) Opiate use: Status: Acute (6) Cocaine abuse: Status: Acute DS: Summary Hospital Course Hospital Course: from admission H+P by hospitalist Chano Harris MD, 11/12/22: This is a 67-year-old female with pertinent history of insulin-dependent diabetes mellitus, opioid and cocaine use disorder, history of diabetic foot ulcer with osteomyelitis, essential hypertension presents to the emergency department evaluation of fevers and chills. Patient states his right lower extremity has been swollen, red and painful over the last 3-4 days. Patient also reports purulent discharge from his left lower extremity ulcer. States his blood glucose has been uncontrolled and it has been running in the 400s over the last few days. Patient also reports generalized malaise and decreased p.o. intake. Does endorse using IV heroin. Patient denies chest discomfort, palpitations, shortness of breath, abdominal pain, changes in urinary or bowel habits. In the emergency department, patient was found to be septic. UDS positive for cocaine and fentanyl. 67yo M with DM2, hx DFU + osteomyelitis, opioid + cocaine use disorder, HTN admitted for sepsis due to infected DFUs, found to have MSSA bacteremia. He was treated with cefazolin via PICC line which was placed on 11/17; on 11/19, 1 of 2 BCx from 11/15 turned positive for Staph aureus presumably MSSA.? Repeat BCx, 1 set from venipuncture and 1 set from PICC done on 11/20 and both were negative.? Plan 6 weeks total cefazolin therapy. Wound Care and General Surgery were consulted and he underwent excisional debridement of right foot at the dorsal lateral aspect,and an excisional debridement of the heel of the left foot on 11/22. He was discharged to [facility] for ongoing IV antibiotic therapy. He was continued on methadone and counseled to avoid opioid and cocaine abuse. He will need outpatient follow-up with Wound Care, ID, and Vascular Surgery. Time Spent with Patient Time attestation: Total time managing care of this patient today ____ minutes. Discharge coordination time: Greater than 30 minutes Quality: Safe Use of Opioids Does Pt have an Active Cancer Diagnosis on the Problem List?: No Quality: Stroke Does the patient have a stroke diagnosis?: No Physical Exam Vital Signs: Vital Signs: Last Vital Signs Temp 97.2 F 11/30/22 07:16 Pulse 58 11/30/22 07:16 Resp 16 11/30/22 07:16 BP 148/71 H 11/30/22 07:16 Pulse Ox 95 11/30/22 07:16 O2 Del Method Room Air 11/30/22 07:16 O2 Flow Rate 3 11/22/22 16:00 BMI result Body Mass Index 32.3 Gen:? Awake alert, in no acute distress HEENT: sclera anicteric, moist mucus membranes Neck: supple Lungs: clear to auscultation bilaterally Heart: regular rate and rhythm, no murmurs Abd: soft, non-tender, non-distended Ext:? Bilateral foot dressings intact, no drainage noted Skin: warm/well-perfused Neuro: alert and oriented x3, no focal findings Psych: appropriate affect ? DS: Data Data Completed and Pending Completed studies during hospitalization [Text1]: Laboratory Results WBC 5.3 X10*3/uL (4.8-10.8) 11/28/22 05:48 RBC 2.70 X10*6/uL (4.60-5.80) L 11/28/22 05:48 Hgb 7.5 g/dl (14.0-18.0) L 11/28/22 05:48 Hct 24.0 % (42.0-52.0) L 11/28/22 05:48 MCV 88.9 fL (80.0-98.0) 11/28/22 05:48 MCH 27.8 pg (27.0-33.0) 11/28/22 05:48 MCHC 31.3 g/dl (31.0-36.0) 11/28/22 05:48 RDW 13.5 % (11.0-16.0) 11/28/22 05:48 Plt Count 203 X10*3/uL (160-400) 11/28/22 05:48 MPV 9.3 fL (9.4-12.4) L 11/28/22 05:48 Immature Gran % (Auto) 1.4 % (0.0-0.4) H 11/25/22 06:07 Neut % (Auto) 54.3 % (45-73) 11/25/22 06:07 Lymph % (Auto) 35.6 % (20-40) 11/25/22 06:07 [place] % (Auto) 7.4 % (2-11) 11/25/22 06:07 Eos % (Auto) 1.0 % (0-4) 11/25/22 06:07 Baso % (Auto) 0.3 % (0-2) 11/25/22 06:07 Lymph # (Auto) 2.5 X10*3/uL (1.2-4.9) 11/25/22 06:07 [place] # (Auto) 0.5 X10*3/uL (0.1-1.2) 11/25/22 06:07 Eos # (Auto) 0.1 X10*3/uL (0.0-0.4) 11/25/22 06:07 Baso # (Auto) 0.0 X10*3/uL (0.0-0.2) 11/25/22 06:07 Abs Immat Gran (auto) 0.10 X10*3/uL (0.00-0.03) H 11/25/22 06:07 Absolute Neuts (auto) 3.8 x10*3/uL (2.0-8.3) 11/25/22 06:07 Absolute Nucleated RBC 0.000 X10*3/uL (0.0-0.012) 11/28/22 05:48 Nucleated RBC % (auto) 0.0 /100WBC (0.0-0.2) 11/28/22 05:48 Neutrophils % (Manual) 64 % (45-73) 11/16/22 06:16 Band Neutrophils % 6 % (3-5) H 11/16/22 06:16 Lymphocytes % (Manual) 19 % (20-40) L 11/16/22 06:16 Atypical Lymphs % (Man) 2 % (0-6) 11/14/22 07:19 Monocytes % (Manual) 8 % (2-11) 11/16/22 06:16 Eosinophils % (Manual) 1 % (0-4) 11/16/22 06:16 Metamyelocytes % 2 % 11/16/22 06:16 Abs Neuts (Manual) 7.5 X10*3/uL (2.0-8.3) 11/16/22 06:16 Lymphocytes # (Manual) 2.0 X10*3/uL (1.2-4.9) 11/16/22 06:16 Atyp Lymphs # (Manual) 0.2 x10*3/uL 11/14/22 07:19 Monocytes # (Manual) 0.9 X10*3/uL (0.1-1.2) 11/16/22 06:16 Eosinophils # (Manual) 0.1 X10*3/uL (0.0-0.4) 11/16/22 06:16 Metamyelocytes # 0.2 X10*3/uL 11/16/22 06:16 Smudge Cells PRESENT 11/14/22 07:19 Toxic Vacuolation PRESENT 11/14/22 07:19 Platelet Estimate NORMAL (NORMAL) 11/16/22 06:16 Plt Morphology Comment NORMAL 11/16/22 06:16 RBC Morphology NOTED 11/16/22 06:16 Polychromasia 1+ (0-2) /OIF 11/16/22 06:16 Hypochromasia 1+ (5-14) /OIF 11/16/22 06:16 ESR 95 MM/HR (0-15) H 11/11/22 21:02 PT 14.3 SEC (10.0-13.1) H 11/11/22 22:29 INR 1.2 (0.9-1.1) H 11/11/22 22:29 APTT 28.3 SEC (26.0-36.4) 11/11/22 22:29 Sodium 140 mmol/L (135-145) 11/28/22 05:48 Potassium 3.8 mmol/L (3.3-5.1) 11/28/22 05:48 Chloride 97 mmol/L (96-108) 11/28/22 05:48 Carbon Dioxide 36 mmol/L (22-29) H 11/28/22 05:48 Anion Gap 11 (12-20) L 11/28/22 05:48 BUN 29 mg/dL (9-16) H 11/28/22 05:48 Creatinine 1.11 mg/dL (0.5-1.4) 11/28/22 05:48 Estim Creat Clear Calc 95.3 11/28/22 05:48 Estimated GFR > 60 11/28/22 05:48 POC Glucose 144 mg/dL (60-115) H 11/30/22 11:18 Random Glucose 121 mg/dL (60-115) H 11/28/22 05:48 Fasting Glucose 122 mg/dL (60-99) H 11/25/22 06:07 Estimat Average Glucose 189 mg/dL 11/11/22 21:02 Hemoglobin A1c % 8.2 % 11/11/22 21:02 Lactic Acid 2.0 mmol/L (0.5-2.0) 11/11/22 21:19 Calcium 8.9 mg/dL (8.4-10.2) 11/28/22 05:48 Total Bilirubin 0.4 mg/dL (0.0-1.0) 11/25/22 06:07 AST 25 U/L (5-37) 11/25/22 06:07 ALT 9 U/L (0-40) 11/25/22 06:07 Alkaline Phosphatase 80 U/L (39-117) 11/25/22 06:07 C-Reactive Protein 6.45 mg/dL (< or = 0.50) H 11/20/22 05:54 B-Natriuretic Peptide Cancelled 11/18/22 05:42 Total Protein 6.6 g/dL (6.5-8.0) 11/25/22 06:07 Albumin 2.0 g/dL (3.5-5.0) L 11/25/22 06:07 Lipase 11 U/L (8-78) 11/11/22 22:29 Urine Color Yellow 11/11/22 22:05 Urine Appearance Clear 11/11/22 22:05 Urine pH 5.5 (5.0-9.0) 11/11/22 22:05 Ur Specific [place] 1.020 (1.005-1.025) 11/11/22 22:05 Urine Protein 30 (1+) mg/dL (Neg-Trace) H 11/11/22 22:05 Urine Glucose (UA) >=1000 mg/dL (Negative) H 11/11/22 22:05 Urine Ketones Negative mg/dL (Negative) 11/11/22 22:05 Urine Blood Negative (Negative) 11/11/22 22:05 Urine Nitrite Negative (Negative) 11/11/22 22:05 Ur Leukocyte Esterase Negative (Negative) 11/11/22 22:05 Urine RBC 0-2 /HPF (0-2) 11/11/22 22:05 Urine WBC 0-5 /HPF (0-5) 11/11/22 22:05 Ur Squamous Epith Cells 0-2 /HPF (0-2) 11/11/22 22:05 Urine Bacteria None Seen (None Seen) 11/11/22 22:05 Hyaline Casts 0-2 /LPF (0-2) 11/11/22 22:05 Vancomycin Trough 9.8 mcg/mL (10.0-20.0) L 11/15/22 19:05 Random Vancomycin 14.4 mcg/mL (15-20) L 11/14/22 07:19 Salicylates < 5.0 mg/dL (15-30) L 11/11/22 22:29 Urine Opiates Screen Not Detected (Not Detect) 11/11/22 22:05 Urine Fentanyl Screen POSITIVE (Not Detect) H 11/11/22 22:05 Ur Barbiturates Screen Not Detected (Not Detect) 11/11/22 22:05 Ur Phencyclidine Scrn Not Detected (Not Detect) 11/11/22 22:05 Ur Amphetamines Screen Not Detected (Not Detect) 11/11/22 22:05 U Benzodiazepines Scrn Not Detected (Not Detect) 11/11/22 22:05 Urine Cocaine Screen POSITIVE (Not Detect) H 11/11/22 22:05 U Marijuana (THC) Screen Not Detected (Not Detect) 11/11/22 22:05 COVID-19 (KATHI) Negative (Negative) 11/30/22 14:00 COVID-19 Clin Com See Note 11/30/22 14:00 Influenza Type A (EMANUEL) Negative (Negative) 11/11/22 21:21 Influenza Type B (EMANUEL) Negative (Negative) 11/11/22 21:21 Influenza A & B Note See Note 11/11/22 21:21 Impressions Chest X-Ray 11/11/22 21:37 IMPRESSION: No acute cardiopulmonary findings. Ankle X-Ray 11/12/22 04:15 IMPRESSION: No acute osseous findings identified. Soft tissue swelling about the ankle. Lower Extremity CT 11/12/22 19:07 IMPRESSION: RIGHT LOWER LE. Circumferential subcutaneous edema within the lower leg, most prominent laterally. No organized fluid collection or peripherally enhancing fluid collection to suggest abscess formation. No obvious soft tissue ulceration. 2. Diffuse midfoot collapse with plantar subluxation of the talus as well as multiple fragments and bony remodeling involving the navicula and cuneiforms as seen on the prior radiographs. Findings may be related to Charcot arthropathy. A superimposed infectious process/osteomyelitis cannot be excluded on CT examination. LEFT LOWER LE. Circumferential subcutaneous edema, most prominent laterally. Focal soft tissue ulceration/subcutaneous air along the lateral aspect of the posterior calcaneus. Findings are consistent with acute cellulitis. No organized fluid collection or peripherally enhancing fluid collection to suggest abscess formation. No significant adjacent periosteal reaction or cortical erosion to suggest calcaneal osteomyelitis. 2. Moderate osteoarthritis within the midfoot. Shoulder X-Ray 11/17/22 14:16 IMPRESSION: Mild right shoulder degenerative changes. No acute fracture. Pathology 11/22/22 Status: ADM IN Collected: 11/22/22 Location: .S3 Received: 11/22/22 Diagnosis A.? Right foot (debridement): ? Gangrenous necrosis of skin and soft tissue B.? Left foot (debridement): ? Gangrenous necrosis of skin and soft tissue. Labs on day of discharge: Laboratory Results - last 24 hr 11/29/22 11/29/22 11/30/22 16:13 20:21 07:14 POC Glucose 155 H 100 120 H COVID-19 (KATHI) COVID-19 Clin Com 11/30/22 11/30/22 11:18 14:00 POC Glucose 144 H COVID-19 (KATHI) Negative COVID-19 Clin Com See Note Discharge Plan Discharge Anticipated Discharge Date/Time: 11/30/22 14:53 Patient Disposition: Xfer SNF Discharge Diagnosis: sepsis due to RLE cellulitis and LLE DFU with MSSA bacteremia DM2 cocaine + opioid use disorder Referrals: [facility] [Outside] - 1 Week Leanne Hughes MD [Physician] - 2 Weeks [facility] Rosy Barroso MD [Physician] - 1 Week Corby Little MD [Primary Care Provider] - 1 Week Discharge Medications: New melatonin 3 mg Tablet 6 mg PO BEDTIME PRN (Reason: Insomnia) Qty: 10 0RF cefazolin in dextrose (iso-os) 2 gram/50 mL Piggyback 2 g IV Q8H Qty: 90 0RF Continued amlodipine 2.5 mg tablet 1 tab PO DAILY losartan 25 mg tablet 1 tab PO DAILY hydrochlorothiazide 25 mg tablet 1 tab PO DAILY atorvastatin 20 mg tablet 1 tab PO DAILY metoprolol succinate 50 mg tablet extended release 24 hr 75 mg PO DAILY gabapentin 300 mg capsule 1 cap PO TID insulin aspart U-100 [Novolog FlexPen U-100 Insulin] 100 unit/mL (3 mL) insulin pen 10 unit subcut TIDWM Levemir U-100 Insulin 100 unit/mL solution 60 unit subcut BID methadone 10 mg/mL Concentrate 45 mg PO DAILY Discharge Orders: Discharge Order (Routine); Ordered 11/30/22 Ordered By: Ulices Rao Diet: Diabetic diet Activity on Discharge: As tolerated Stand Alone Forms: Patient Portal Discharge page Care Plan Goals: cure infection Health Concerns: sepsis due to RLE cellulitis and LLE DFU with MSSA bacteremia DM2 cocaine + opioid use disorder Plan of Treatment: IV cefazolin 2 grams every 8 hours, end date of 12/29/22 Dressing change: place 4x4 [ads to all open wounds and then cover with Kerlix and then wrapp bilateral lower extremities with LUZ MARIA wrap from foot to calf Continue methadone Avoid substances of abuse Follow up with [facility] Wound Care in 1 week, Infectious Diseases in 2 weeks, [facility] Vascular Surgery in 1 month Assessment: As above
[2022-11-30] MEDS: 0.9 % Sodium Chloride Flush 10 ML SYRINGE 5 ML IVFLUSH (15:20)
[2022-11-30 15:39] VITALS: BP 134/63; PULSE 70; RESP 20; TEMP 36.1; O2SAT 98
[2022-11-30] MEDS: Insulin Lispro 100 UNIT/ML 3 ML VIAL SUBCUT (17:18)
[2022-11-30 20:08] LABS: Glucose, Whole Blood 189 mg/dL (60-115)
== END 2022-11-30 18:53 | disposition skilled nursing facility (03) | DRG 854 ==
LOC: HO.ED 21:50 → HO.EDOVER 11-12 00:36 → HO.S3 11-12 12:23
PROVIDERS: Hospitalist; Physician Assistant; Surgery; Admitting Provider Student in an Organized Health Care Education/Training Program; Emergency Provider Emergency Medicine Emergency Medical Services; PCP Internal Medicine; Visit Provider Family Medicine
PROC: 02HV33Z Insertion of Infusion Device into Superior Vena Cava, Percutaneous Approach (ICD-10-PCS; principal; 2022-11-17 15:00)
PROC: 0JBQ0ZZ Excision of Right Foot Subcutaneous Tissue and Fascia, Open Approach (ICD-10-PCS; principal; 2022-11-22 12:00)
DX: A41.9 Sepsis, unspecified organism (principal); E11.52 Type 2 diabetes mellitus with diabetic peripheral angiopathy with gangrene; F11.20 Opioid dependence, uncomplicated; L97.429 Non-pressure chronic ulcer of left heel and midfoot with unspecified severity; N17.9 Acute kidney failure, unspecified; M86.171 Other acute osteomyelitis, right ankle and foot; E11.69 Type 2 diabetes mellitus with other specified complication; D64.9 Anemia, unspecified; E11.621 Type 2 diabetes mellitus with foot ulcer; E11.65 Type 2 diabetes mellitus with hyperglycemia; L97.519 Non-pressure chronic ulcer of other part of right foot with unspecified severity; E11.40 Type 2 diabetes mellitus with diabetic neuropathy, unspecified; F14.10 Cocaine abuse, uncomplicated; I10 Essential (primary) hypertension; Z20.822 Contact with and (suspected) exposure to COVID-19; Z23 Encounter for immunization; Z79.4 Long term (current) use of insulin; Z79.899 Other long term (current) drug therapy
CPT/HCPCS: 36415; 36573; 71045; 73030; 73600; 73701; 80048; 80053; 80179; 80202; 80307; 81001; 82565; 82947; 83036; 83605; 83690; 85007; 85025; 85027; 85610; 85652; 85730; 86140; 87040; 87070; 87077; 87147; 87186; 87205; 87502; 87635; 88304; 88305; 90686; 93306; 93356; 99285; C1751; J0690; J0692; J1650; J2250; J2270; J2405; J2543; J2795; J2930; J3010; J3370; J3371; Q9957; Q9967

== ENCOUNTER 2022-12-04 13:23 | Outpatient (RCR) | payer OTHER, SELFPAY | END 2023-02-09 13:32 | disposition home or self-care (01) | LOC: HO.WCC 13:23 | PROVIDERS: PCP Internal Medicine; Visit Provider Physician Assistant | DX: E11.621 Type 2 diabetes mellitus with foot ulcer (principal); E11.51 Type 2 diabetes mellitus with diabetic peripheral angiopathy without gangrene; L97.422 Non-pressure chronic ulcer of left heel and midfoot with fat layer exposed; L97.512 Non-pressure chronic ulcer of other part of right foot with fat layer exposed; E11.622 Type 2 diabetes mellitus with other skin ulcer; I87.311 Chronic venous hypertension (idiopathic) with ulcer of right lower extremity; L97.812 Non-pressure chronic ulcer of other part of right lower leg with fat layer exposed; E11.69 Type 2 diabetes mellitus with other specified complication; M86.9 Osteomyelitis, unspecified; E11.40 Type 2 diabetes mellitus with diabetic neuropathy, unspecified; J44.9 Chronic obstructive pulmonary disease, unspecified; R78.81 Bacteremia; Z86.19 Personal history of other infectious and parasitic diseases | CPT/HCPCS: 11042; 11043; 11044; 11045; 11046; 11047 ==

== ENCOUNTER → 2022-12-19 13:16 | Outpatient (BNVA) | payer OTHER, SELFPAY | PROVIDERS: PCP Internal Medicine; Visit Provider Surgery Vascular Surgery | DX: I83.12 Varicose veins of left lower extremity with inflammation (principal) | CPT/HCPCS: 99212 ==

== ENCOUNTER → 2022-12-22 14:15 | Outpatient (BNVA) | payer OTHER, SELFPAY | PROVIDERS: PCP Internal Medicine; Visit Provider Internal Medicine | DX: E11.621 Type 2 diabetes mellitus with foot ulcer (principal); L97.519 Non-pressure chronic ulcer of other part of right foot with unspecified severity; F14.20 Cocaine dependence, uncomplicated; F11.20 Opioid dependence, uncomplicated | CPT/HCPCS: 99212 ==

== ENCOUNTER 2022-12-27 12:59 | Outpatient (REF) | payer OTHER, SELFPAY ==
--- NOTE | ~2022-12-27 | US_ITS ---
EXAMINATION: US LOWER EXTREMITY VENOUS (REFLUX EXAM), BILATERAL CLINICAL INDICATION: Chronic venous insufficiency with lower extremity varicose veins with inflammation COMPARISON: None. TECHNIQUE: Color flow triplex imaging and compression Doppler was performed to evaluate both the deep and the superficial systems bilaterally. To evaluate the superficial system, the examination was performed in the upright position. Color-flow Doppler ultrasound and compression ultrasound were utilized. In addition, maneuvers were utilized to demonstrate reflux. FINDINGS: 1. DEEP VENOUS ULTRASOUND OF THE RIGHT LOWER EXTREMITY: Common Femoral Vein: Compressible, normal respiratory variation and augmented flow. Femoral Vein: Compressible, normal color flow and augmentation. Popliteal Vein: Compressible, normal augmentation. Deep Reflux: There is no evidence of reflux in the deep system in either the common femoral vein or the popliteal vein. There is no evidence of a Bass's cyst. Extensive subcutaneous edema is seen throughout the right lower extremity 2. SUPERFICIAL ULTRASOUND WITH DOPPLER OF RIGHT LOWER EXTREMITY: GREAT SAPHENOUS VEIN: Saphenofemoral Junction: 0.6 cm; Reflux: 0 ms Proximal Thigh: 0.6 cm; Reflux: 0 ms Mid Thigh: 0.4 cm; Reflux: 0 ms Above Knee: 0.5 cm; Reflux: 0 ms At Knee: 0.3 cm; Reflux: 0 ms Below Knee: 0.5 cm; Reflux: 0 ms Mid Calf: 0.3 cm; Reflux: 0 ms Ankle: 0.4 cm; Reflux: 0 ms DUPLICATED MEDIAL GREAT SAPHENOUS VEIN: Diameter: None Imaged Reflux: NA DUPLICATED LATERAL GREAT SAPHENOUS VEIN: Diameter: Ranging from 0.5 to 0.9 cm. This rejoins the great saphenous vein in the mid calf Reflux: None SMALL SAPHENOUS VEIN: Proximal: 0.3 cm; Reflux: 0 ms Distal: 0.5 cm; Reflux: 0 ms VEIN OF GIACOMINI: None Imaged. PERFORATORS: Location: 0.3 to 0.6 cm Size: Proximal calf Reflux: None VARICOSITIES: Location: None Imaged Size: NA Reflux: NA 3. DEEP VENOUS ULTRASOUND OF THE LEFT LOWER EXTREMITY: Common Femoral Vein: Compressible, normal respiratory variation and augmented flow. Femoral Vein: Compressible, normal color flow and augmentation. Popliteal Vein: Compressible, normal augmentation. Deep Reflux: There is no evidence of reflux in the deep system in either the common femoral vein or the popliteal vein. There is no evidence of a Bass's cyst. Large lymph node seen in the left groin measuring 2.7 x 1.2 cm Diffuse subcutaneous edema seen throughout the left lower extremity 4. SUPERFICIAL ULTRASOUND WITH DOPPLER OF LEFT LOWER EXTREMITY: GREAT SAPHENOUS VEIN: Saphenofemoral Junction: 0.9 cm; Reflux: 0 ms Proximal Thigh: 0.6 cm; Reflux: 0 ms Mid Thigh: 0.6 cm; Reflux: 0 ms Above Knee: 0.7 cm; Reflux: 0 ms At Knee: 0.5 cm; Reflux: 0 ms Below Knee: 0.5 cm; Reflux: 0 ms Mid Calf: 0.4 cm; Reflux: 0 ms Ankle: 0.4 cm; Reflux: 0 ms DUPLICATED MEDIAL GREAT SAPHENOUS VEIN: Diameter: None Imaged Reflux: NA DUPLICATED LATERAL GREAT SAPHENOUS VEIN: Diameter: None Imaged Reflux: NA SMALL SAPHENOUS VEIN: Proximal: 0.3 cm; Reflux: 0 ms Distal: 0.3 cm; Reflux: 0 ms VEIN OF GIACOMINI: None Imaged. PERFORATORS: Location: None significant Size: NA Reflux: NA VARICOSITIES: Location: Knee and proximal calf Size: 0.3 to 0.4 cm Reflux: None US/US venous duplex LE BI IMPRESSION: Right: Dilated saphenous veins as described above without significant reflux. Marked subcutaneous edema Left: Dilated saphenous veins as described above without significant reflux. Marked subcutaneous edema
== END 2022-12-27 13:00 | disposition home or self-care (01) ==
LOC: HO.US 12:59
PROVIDERS: Visit Provider Surgery Vascular Surgery
DX: I83.12 Varicose veins of left lower extremity with inflammation (principal)
CPT/HCPCS: 93970

== ENCOUNTER 2023-01-08 13:23 | Outpatient (REF) | payer OTHER, SELFPAY ==
--- NOTE | ~2023-01-08 | US_ITS ---
EXAMINATION: Noninvasive assessment of the bilateral lower extremities with ARTERIAL DUPLEX and ANKLE BRACHIAL INDICES (ABIs). CLINICAL INFORMATION: Peripheral vascular disease TECHNIQUE: Duplex Doppler techniques with waveform analysis and measurement of velocities in the left common femoral, profunda femoris, superficial femoral, popliteal and tibial arteries were performed. Additionally, ankle pulse volume recordings, ankle pressure measurements and ankle brachial indices were obtained of the lower extremity arterial system bilaterally. The study was performed only at rest. COMPARISON: None FINDINGS: DIRECT DUPLEX DOPPLER FINDINGS: LEFT LEG: Common femoral artery: 324 cm/s, phasicity: Biphasic Profunda femoris artery: 288 cm/s, phasicity: Triphasic Superficial femoral artery (proximal): 236 cm/s, phasicity: Monophasic Superficial femoral artery (mid): 209 cm/s, phasicity: Monophasic Superficial femoral artery (distal): 229 cm/s, phasicity: Monophasic Popliteal artery: 198 cm/s, phasicity: Monophasic Posterior tibial artery: 173 cm/s, phasicity: Monophasic Peroneal artery: Not visualized Other: There is an enlarged lymph node in the left groin measuring 2.4 x 1.6 cm ANKLE-BRACHIAL INDEX: Right: 1.13? Left: 0.8 ANKLE PRESSURES: Right: PT 206, DP not evaluated due to overlying bandage Left: PT?146, DP?131 ANKLE PVR WAVEFORMS: Right: Normal Left: Normal US/US ASHLYN complete IMPRESSION: Right leg: Normal ankle brachial index and pulse volume waveform. Left leg: Mildly decreased ankle brachial index. Diffusely elevated velocities throughout the left lower extremity with monophasic waveforms but otherwise patent flow. No significant arterial occlusion. ASHLYN Reference: - >1.4 = calcified vessels - 0.9 - 1.4 = normal - no significant arterial disease - 0.7 - 0.89 = mild peripheral arterial disease - 0.51 - 0.69 = moderate peripheral arterial disease - ? 0.50 = severe peripheral arterial disease - < .30 = critical arterial disease
--- NOTE | ~2023-01-08 | US_ITS ---
EXAMINATION: Noninvasive assessment of the bilateral lower extremities with ARTERIAL DUPLEX and ANKLE BRACHIAL INDICES (ABIs). CLINICAL INFORMATION: Peripheral vascular disease TECHNIQUE: Duplex Doppler techniques with waveform analysis and measurement of velocities in the left common femoral, profunda femoris, superficial femoral, popliteal and tibial arteries were performed. Additionally, ankle pulse volume recordings, ankle pressure measurements and ankle brachial indices were obtained of the lower extremity arterial system bilaterally. The study was performed only at rest. COMPARISON: None FINDINGS: DIRECT DUPLEX DOPPLER FINDINGS: LEFT LEG: Common femoral artery: 324 cm/s, phasicity: Biphasic Profunda femoris artery: 288 cm/s, phasicity: Triphasic Superficial femoral artery (proximal): 236 cm/s, phasicity: Monophasic Superficial femoral artery (mid): 209 cm/s, phasicity: Monophasic Superficial femoral artery (distal): 229 cm/s, phasicity: Monophasic Popliteal artery: 198 cm/s, phasicity: Monophasic Posterior tibial artery: 173 cm/s, phasicity: Monophasic Peroneal artery: Not visualized Other: There is an enlarged lymph node in the left groin measuring 2.4 x 1.6 cm ANKLE-BRACHIAL INDEX: Right: 1.13? Left: 0.8 ANKLE PRESSURES: Right: PT 206, DP not evaluated due to overlying bandage Left: PT?146, DP?131 ANKLE PVR WAVEFORMS: Right: Normal Left: Normal US/US arterial duplex LE LT IMPRESSION: Right leg: Normal ankle brachial index and pulse volume waveform. Left leg: Mildly decreased ankle brachial index. Diffusely elevated velocities throughout the left lower extremity with monophasic waveforms but otherwise patent flow. No significant arterial occlusion. ASHLYN Reference: - >1.4 = calcified vessels - 0.9 - 1.4 = normal - no significant arterial disease - 0.7 - 0.89 = mild peripheral arterial disease - 0.51 - 0.69 = moderate peripheral arterial disease - ? 0.50 = severe peripheral arterial disease - < .30 = critical arterial disease
== END 2023-01-08 13:24 | disposition home or self-care (01) ==
LOC: HO.US 13:23
PROVIDERS: PCP Internal Medicine; Visit Provider Physician Assistant
DX: I73.9 Peripheral vascular disease, unspecified (principal)
CPT/HCPCS: 93923; 93926

== ENCOUNTER 2023-03-22 08:12 | Emergency (ER) | payer OTHER, SELFPAY ==
--- NOTE | ~2023-03-22 | XR_ITS ---
EXAMINATION: XR FOOT, LEFT CLINICAL INFORMATION: Worsening wound, question fracture. COMPARISON: Left foot radiographs dated 02/19/2022. TECHNIQUE: AP, lateral, and oblique views of the left foot. FINDINGS: External fixation device is seen transfixing the tarsal bones. There is overall good anatomic alignment without overt hardware abnormality. No acute fracture or dislocation. No overt cortical erosive changes. Mild soft tissue swelling. Moderate to severe small vessel arteriosclerosis. XR/XR foot LT min 3V IMPRESSION: 1. External fixation device without overt hardware abnormality. No overt acute fracture. 2. Mild soft tissue swelling. 3. Moderate to severe small vessel arteriosclerosis.
[2023-03-22 08:22] VITALS: BP 128/90; PULSE 102; O2SAT 97
--- NOTE | 2023-03-22 08:28 | ED.GENADULT ---
HPI - General Adult General Chief complaint: Extremity Injury, Lower Stated complaint: Open wound on foot Time Seen by Provider: 03/22/23 08:27 Source: patient and EMS Mode of arrival: EMS Limitations: no limitations History of Present Illness HPI narrative: 67 year old male patient with history of diabetes, hypertension, SILVA, and iron deficiency anemia presents today due to an open wound on his left foot. He was discharged home from [facility] yesterday on 03/21/23 post deep debridement. He is non weight bearing on his left foot which has external fixation due to a calcaneus fracture. Per patient he got out of bed with crutches last night to ambulate to the bathroom and accidentally stepped on the left foot. After weight bearing on the left foot the wound then opened and he states it has been bleeding since which is what prompted him to call the ambulance. He denies any symptoms associated with this and states he doesn't have pain due to his diabetic neuropathy. Onset (ago): hour(s) Location: lower extremity Radiation: non-radiation Severity: moderate Severity scale (1-10): 2 Relieving factors: none Exacerbating factors: none Associated symptoms: denies other symptoms Treatments prior to arrival: none Related Data Home Medications Medication Instructions Recorded Confirmed atorvastatin 20 mg tablet 1 tab PO DAILY 10/13/21 11/12/22 gabapentin 300 mg capsule 1 cap PO TID 10/13/21 11/12/22 insulin aspart U-100 100 unit/mL 10 unit subcut TIDWM 10/13/21 11/12/22 (3 mL) subcutaneous pen (Novolog FlexPen U-100 Insulin aspart) insulin detemir U-100 100 unit/mL 60 unit subcut BID 10/13/21 11/12/22 subcutaneous solution (Levemir U-100 Insulin) metoprolol succinate 50 mg 75 mg PO DAILY 10/13/21 11/12/22 tablet,extended release 24 hr methadone 10 mg/mL oral concentrate 45 mg PO DAILY 10/16/21 11/12/22 amlodipine 2.5 mg tablet 1 tab PO DAILY 11/12/22 11/12/22 hydrochlorothiazide 25 mg tablet 1 tab PO DAILY 11/12/22 11/12/22 losartan 25 mg tablet 1 tab PO DAILY 11/12/22 11/12/22 Previous Rx's Medication Instructions Recorded melatonin 3 mg tablet 6 mg PO BEDTIME PRN Insomnia #10 11/28/22 tabs cefazolin 2 gram/50 mL in dextrose 2 g (50 mL) IV Q8H #90 ea 11/30/22 (iso-osmotic) intravenous piggyback doxycycline hyclate 100 mg tablet 100 mg PO BID 30 days #60 tabs 12/22/22 Allergies Allergy/AdvReac Type Severity Reaction Status Date / Time No Known Allergies Allergy Verified 12/22/22 14:40 [No Known Allergies*] Review of Systems Constitutional: Constitutional: Reports no additional constitutional complaints, Denies chills, Denies fever(s) and Denies night sweats Eyes: Eyes: Reports no additional eye complaints, Denies blurry vision, Denies change in vision, Denies diplopia, Denies eye discharge, Denies loss of vision and Denies eye pain ENT: Denies dizziness Cardiovascular: Cardiovascular: Reports no additional cardiovascular complaints, Denies chest pain, Denies lightheadedness, Denies Loss of Consciousness and Denies dyspnea Respiratory: Respiratory: Reports no additional respiratory complaints and Denies dyspnea Gastrointestinal: Gastrointestinal: Reports no additional gastrointestinal complaints, Denies abdominal pain, Denies melena, Denies hematochezia, Denies change in bowel habits and Denies change in stool character Genitourinary: Genitourinary: Reports no additional male genitourinary complaints, Denies hematuria, Denies oliguria, Denies difficulty urinating, Denies dysuria, Denies urinary frequency, Denies urinary hesitancy, Denies urinary incontinence and Denies urinary urgency Musculoskeletal: Musculoskeletal: Reports no additional musculoskeletal complaints, Denies numbness and Denies tingling Integumentary/Breasts: Skin/Breast: Reports wounds (left heel) Neurologic: Denies dizziness, Denies loss of vision, Denies numbness and Denies tingling Psychiatric: Psychiatric: Reports no additional psychiatric complaints Endocrine: Endocrine: Reports no additional endocrine complaints Hematologic/Lymphatic: Hematologic/Lymphatic: Reports no additional hematologic/lymphatic complaints Allergic/Immunologic: Allergic/Immunologic: Reports no additional allergic/immunologic complaints PMFSH Past Medical History Attestation statement: The following information was validated with the patient. Source: old records reviewed and nursing notes reviewed Medical History Acute renal failure B12 deficiency anemia Diabetes mellitus DM foot Hyperkalemia Hypertension Lymphedema Opiate use PAD (peripheral artery disease) Substance use disorder Type 2 diabetes mellitus with foot ulcer Surgical History H/O colonoscopy Social History Social History Household Members: Family Housing: House Do you presently have visiting nurse or other home services: No Alcohol intake: never Patient Tobacco Use Status: Never used Tobacco Second Hand Smoke Exposure: No Substance Use Type: Crack/Cocaine and Heroin Advance Directives: No Advance Directives Information Provided: Yes service: No Current occupational status: disabled Physical Exam ED Vital Signs: Vital Signs - 24 hr 03/22/23 08:31 03/22/23 10:17 03/22/23 12:01 Temperature 98.5 F Pulse Rate 103 H 118 H 111 H Respiratory Rate 17 17 17 Blood Pressure 146/77 H 135/90 H 124/72 Pulse Oximetry 94 96 96 Oxygen Delivery Method Room Air Room Air Room Air BMI result Body Mass Index 36.9 Const General: cooperative, no acute distress, alert and awake Nutritional Appearance: well nourished Orientation/consciousness: patient oriented x3 Limitations: no limitations HENMT Head: Yes normal to inspection and Yes atraumatic Ears: hearing grossly normal bilaterally and external ears normal General nose exam: Normal external nose present, no nasal discharge noted and no epistaxis Face and sinus: Yes normal facial exam, No abrasion and No laceration Mouth: Normal oral and palatal mucosa present, no drooling and no muffled voice Eyes General: appearance normal, both eyes and all related structures Periorbital: periorbital findings normal Eyelids: Yes eyelids normal Conjunctivae: conjunctivae normal Pupils: Equal, round and reactive pupils present EOM: EOMs intact bilaterally Neck Neck: Yes normal visual inspection, Yes full ROM and Yes no lymphadenopathy Chest Chest palpation & inspection: normal inspection of the chest Resp Effort & Inspection: normal respiratory effort and able to speak in complete sentences Auscultation: clear to auscultation bilaterally Cardio Rate: tachycardic Rhythm: regular rhythm GI Inspection: Yes normal to inspection Skin Wounds: wounds noted left heel drainage bloody, open and with surrounding erythema Neuro General: patient oriented x3 and moves all extremities Cranial nerves: Yes Equal, round and reactive pupils present Cognition (Neuro): normal cognition Motor exam (neuro): 5/5 motor strength present throughout Sensory Exam: Normal double simultaneous stimulation for sensation Coordination: [id number] test normal Extrem Other: General: Yes full ROM, Yes capillary refill normal and Yes other (external fixation in place for calcaneus fracture) Psych Appearance: grossly normal Mental Status: mental status grossly normal Affect: normal affect Attitude: cooperative Thought process: Normal thought process present Thought content: Normal thought content present Insight: Good insight present (Psych) Medications Administered Discontinued Medications Generic Name Dose Route Start Last Admin Trade Name Bharat PRN Reason Stop Dose Admin Piperacillin Sod/Tazobactam 50 mls @ 100 mls/hr 03/22/23 10:47 03/22/23 11:57 Sod 3.375 gm/ Sodium Chloride IV 03/22/23 11:16 Not Given ONCE ONE Vancomycin HCl 2,000 mg in 500 mls @ 250 mls/hr 03/22/23 11:00 03/22/23 11:58 Vancomycin/Ns IV 03/22/23 12:59 Not Given ONCE ONE Medical Decision Making Medical Decision Making MDM Narrative: Patient is a 67 year old assigned male at with a history of diabetes, MRSA, bilateral foot chronic wounds, left calcaneus fracture, and medical non-compliance presenting to the emergency department today with a left foot wound bleeding. Patient's physical exam was as noted in the physical exam portion of this chart. Patient's blood work showed an elevated ESR of 70, CRP of 7.28, and mildly elevated LFTs. The rest of the patient's labs were grossly normal. Patient's left foot x-ray showed an external device transfixing the tarsal bones with no abnormality. Patient's bilateral wound dressing were taken down and the wounds were extensively cleaned / debrided. I called and spoke with Dr. Castillo, the doctor who placed the external fixation device. He stated that the patient's left foot wound could be covered with surgicell and non-adherent dressings and he would follow up with him in the office on Sunday (03/26/2023). He also stated that the patient's wounds are not infected, he saw them yesterday and they are the same compared to today. Patient is not clinically septic (@1200). I explained my physical exam findings as well as all test results to the patient. I answered all questions asked by the patient. I stressed the importance of the patient taking his medication as prescribed. I stressed the importance of the patient following up with his primary care provider and with Dr. Castillo. I stressed the importance of the patient returning to the emergency department immediately if his symptoms were to worsen or if he were to develop any dizziness, shortness of breath, difficulty breathing, chest pain, blurry vision, loss of vision, nausea, vomiting, abdominal pain, fever, chills, back pain, or any other complaints. Patient verbalized agreement and understanding with this treatment plan and discharge. Differential Diagnosis Differential Diagnoses: The differential diagnosis associated with the presentation includes Osteomyelitis MRSA Chronic left foot wound Bleeding wound Non-compliance Admission/Observation Consideration of admission/observation: Escalation of care including admission/observation considered Patient would have been admitted to the hospital had his work up had any findings where hospital admission was appropriate and his clinical presentation warranted hospital admission. Consult Healthcare Provider Management of the patient was discussed with: Machine Operator Cane Cutter (spoke with Dr. Castillo as noted in the MDM portion of this chart.) Lab Data [facility] Lab Attestation statement: I reviewed the patient's lab results. My interpretation of the patient's lab results are in the MDM portion of this chart. 03/22/23 10:04 03/22/23 10:04 Labs: Lab Results 03/22/23 03/22/23 03/22/23 Range/Units 10:04 10:04 10:04 WBC 10.3 (4.8-10.8) X10*3/uL RBC 3.72 L D (4.60-5.80) X10*6/uL Hgb 9.7 L D (14.0-18.0) g/dl Hct 29.7 L D (42.0-52.0) % MCV 79.8 L (80.0-98.0) fL MCH 26.1 L (27.0-33.0) pg MCHC 32.7 (31.0-36.0) g/dl RDW 15.3 (11.0-16.0) % Plt Count 140 L D (160-400) X10*3/uL MPV 9.5 (9.4-12.4) fL Immature Gran % (Auto) 0.8 H (0.0-0.4) % Neut % (Auto) 62.1 (45-73) % Lymph % (Auto) 28.5 (20-40) % Lasalle % (Auto) 8.0 (2-11) % Eos % (Auto) 0.3 (0-4) % Baso % (Auto) 0.3 (0-2) % Lymph # (Auto) 2.9 (1.2-4.9) X10*3/uL Lasalle # (Auto) 0.8 (0.1-1.2) X10*3/uL Eos # (Auto) 0.0 (0.0-0.4) X10*3/uL Baso # (Auto) 0.0 (0.0-0.2) X10*3/uL Abs Immat Gran (auto) 0.08 H (0.00-0.03) X10*3/uL Absolute Neuts (auto) 6.4 (2.0-8.3) x10*3/uL Absolute Nucleated RBC 0.000 (0.0-0.012) X10*3/uL Nucleated RBC % (auto) 0.0 (0.0-0.2) /100WBC ESR 70 H (0-15) MM/HR Sodium 139 (135-145) mmol/L Potassium 3.6 (3.3-5.1) mmol/L Chloride 100 (96-108) mmol/L Carbon Dioxide 30 H (22-29) mmol/L Anion Gap 13 (12-20) BUN 31 H (9-16) mg/dL Creatinine 1.26 (0.5-1.4) mg/dL Estim Creat Clear Calc 78.2 Estimated GFR 57 Random Glucose 221 H (60-115) mg/dL Lactic Acid (0.5-2.0) mmol/L Calcium 9.7 D (8.4-10.2) mg/dL Total Bilirubin 1.6 H (0.0-1.0) mg/dL AST 41 H (5-37) U/L ALT 64 H (0-40) U/L Alkaline Phosphatase 103 (39-117) U/L C-Reactive Protein 7.28 H (< or = 0.50) mg/dL Total Protein 7.8 (6.5-8.0) g/dL Albumin 3.6 (3.5-5.0) g/dL 03/22/23 Range/Units 10:04 WBC (4.8-10.8) X10*3/uL RBC (4.60-5.80) X10*6/uL Hgb (14.0-18.0) g/dl Hct (42.0-52.0) % MCV (80.0-98.0) fL MCH (27.0-33.0) pg MCHC (31.0-36.0) g/dl RDW (11.0-16.0) % Plt Count (160-400) X10*3/uL MPV (9.4-12.4) fL Immature Gran % (Auto) (0.0-0.4) % Neut % (Auto) (45-73) % Lymph % (Auto) (20-40) % Lasalle % (Auto) (2-11) % Eos % (Auto) (0-4) % Baso % (Auto) (0-2) % Lymph # (Auto) (1.2-4.9) X10*3/uL Lasalle # (Auto) (0.1-1.2) X10*3/uL Eos # (Auto) (0.0-0.4) X10*3/uL Baso # (Auto) (0.0-0.2) X10*3/uL Abs Immat Gran (auto) (0.00-0.03) X10*3/uL Absolute Neuts (auto) (2.0-8.3) x10*3/uL Absolute Nucleated RBC (0.0-0.012) X10*3/uL Nucleated RBC % (auto) (0.0-0.2) /100WBC ESR (0-15) MM/HR Sodium (135-145) mmol/L Potassium (3.3-5.1) mmol/L Chloride (96-108) mmol/L Carbon Dioxide (22-29) mmol/L Anion Gap (12-20) BUN (9-16) mg/dL Creatinine (0.5-1.4) mg/dL Estim Creat Clear Calc Estimated GFR Random Glucose (60-115) mg/dL Lactic Acid 1.1 (0.5-2.0) mmol/L Calcium (8.4-10.2) mg/dL Total Bilirubin (0.0-1.0) mg/dL AST (5-37) U/L ALT (0-40) U/L Alkaline Phosphatase (39-117) U/L C-Reactive Protein (< or = 0.50) mg/dL Total Protein (6.5-8.0) g/dL Albumin (3.5-5.0) g/dL Independent Interpretation I performed an independent interpretation of an: Plain X-Ray Interpretation: My interpretation is in agreement with the radiologist's impression of this imaging study. EXAMINATION: XR FOOT, LEFT CLINICAL INFORMATION: Worsening wound, question fracture.? COMPARISON: Left foot radiographs dated 02/19/2022.? TECHNIQUE: AP, lateral, and oblique views of the left foot. FINDINGS: External fixation device is seen transfixing the tarsal bones. There is overall good anatomic alignment without overt hardware abnormality. No acute fracture or dislocation. No overt cortical erosive changes. Mild soft tissue swelling. Moderate to severe small vessel arteriosclerosis. XR/XR foot LT min 3V IMPRESSION: 1.? External fixation device without overt hardware abnormality. No overt acute fracture. 2.? Mild soft tissue swelling. 3.? Moderate to severe small vessel arteriosclerosis. Dictated By: Everardo Bravo MD Signed By: Electronically signed by Everardo Bravo MD 03/22/23 1118 Radiology Impression Discussion of test interpretation with radiology: I have reviewed the radiologist's reading. Independent Historian Clinical information obtained from an independent historian. History obtained from or confirmed by: EMS (EMS provided additional history and confirmed the history provided by the patient.) External Record Review External record reviewed: Other (reviewed the ED and admission records from the patient's most recent visit to [facility]) Prescription Management I considered prescription management with: Antibiotic (initially considered but the patient is not actively suffering from an infection.) Chronic Conditions Patient?s care impacted by: Diabetes and Other (medical non-compliance.) Critical Care Time Critical Care Time Critical Care Time: Yes Total Critical Care Time: 45 Attestation: I spent 45 minutes of Critical Care Time with this patient. This does not include time spent on separately reported billable procedures. Discharge Plan Discharge Clinical Impression: Chronic wound Patient Disposition: Home, Self-Care Instructions: Chronic Wounds (ED) Additional Instructions: Follow up with your primary care provider and Dr. Castillo. REMAIN NON-WEIGHT BEARING ON THAT LEFT FOOT. Return to the emergency department immediately if your symptoms worsen or if you develop any dizziness, shortness of breath, difficulty breathing, chest pain, blurry vision, loss of vision, nausea, vomiting, abdominal pain, fever, chills, back pain, or any other complaints. Prescriptions: No Action amlodipine 2.5 mg tablet 1 tab PO DAILY losartan 25 mg tablet 1 tab PO DAILY hydrochlorothiazide 25 mg tablet 1 tab PO DAILY melatonin 3 mg Tablet 6 mg PO BEDTIME PRN (Reason: Insomnia) Qty: 10 0RF cefazolin in dextrose (iso-os) 2 gram/50 mL Piggyback 2 g IV Q8H Qty: 90 0RF atorvastatin 20 mg tablet 1 tab PO DAILY metoprolol succinate 50 mg tablet extended release 24 hr 75 mg PO DAILY gabapentin 300 mg capsule 1 cap PO TID insulin aspart U-100 [Novolog FlexPen U-100 Insulin] 100 unit/mL (3 mL) insulin pen 10 unit subcut TIDWM Levemir U-100 Insulin 100 unit/mL solution 60 unit subcut BID methadone 10 mg/mL Concentrate 45 mg PO DAILY doxycycline hyclate 100 mg tablet 100 mg PO BID 30 Days Qty: 60 1RF Referrals: [facility] Family Medicine [Provider Group] (Call to establish and follow up with a primary care provider. If you already have a primary care provider, please follow up with them.) [facility] Primary [facility] [Provider Group] (Call to establish and follow up with a primary care provider. If you already have a primary care provider, please follow up with them.) [facility] Primary [facility] [Provider Group] (Call to establish and follow up with a primary care provider. If you already have a primary care provider, please follow up with them.) Print Language: Czech
[2023-03-22 08:29] VITALS: BMI 36.9
[2023-03-22 08:31] VITALS: BP 146/77; PULSE 103; RESP 17; TEMP 36.9; O2SAT 94
--- OUTSIDE RECORDS SUMMARY | 2023-03-22 09:21 | XMS_ITS | Patient Health Record ---
Author Name Unknown Organization [facility] Address [address] [place] [address] Care Team Providers Care Pool Cleaner Name Role Phone Chantelle Wolfe Primary Care Provi jose Unavailable ALLERGIES No Known Allergies REASON FOR REFERRAL No Information MEDICATIONS Medication SIG (Take, Route, Frequency, Duration) Notes Start Date End Date Status Fluticasone Furoate-Vilanterol 100-25 MCG/INH 1 puff Inhalation Once a day Active diphenhydrAMINE-Acet aminophen 12.5-500 MG 1 tablet as needed Orally PRN @ bedtime for insomnia Active Atorvastatin Calcium 20 MG 1 tablet Orally Once a day @ bedtime Active Gabapentin 300 MG 1 capsule Orally TID Active Levemir 100 UNIT/ML as directed Subcutaneous BID Inject 60 units subcutaneously BID Active Lisinopril 30 MG 1 tablet Orally Once a day Active Furosemide 20 MG 1 tablet Orally Once a day take 0.5 tablet POdaily Active Methadone HCl 10 MG 1 tablet Orally Once a day take 40 mg PO daily Active Toprol XL 50 MG 1 tablet Orally Once a day take 1.5 tablets PO daily Active Ciclopirox 0.77 % 1 application Externally Once a day Active Cyanocobalamin 1000 MCG/ML 1 ml Injection Q 30 days Active Ammonium Lactate 12 % 1 application Externally daily Active SOCIAL HISTORY Sex Assigned At : Social History Observation Description Sex Assigned At Unknown PROBLEMS Problem Type ICD Code Onset Dates Problem Status W/U Status Risk SNOMED Code Notes Problem Charcot's joint, right ankle and foot (M14.671) Active confirmed 321340323 Problem Other hammer toe(s) (acquired), right foot (M20.41) Active confirmed 245753691 Problem Other hammer toe(s) (acquired), left foot (M20.42) Active confirmed 25814661 Problem Type 2 diabetes mellitus with diabetic polyneuropathy, unspecified whether technician terminal and repeater insulin use (E11.42) Active confirmed [id number] PLAN OF TREATMENT Pending Test Test Name Order Date X ray : Foot, right 3v 04/15/2021 Insurance Providers Payer Name Payer Address Payer Phone Subscriber Number Group Number Insured Name Patient Relationship to Insured Coverage Start Date Coverage End Date [facility] [employer] Claims [address] [place] [address] [phone] [id number] Paul Vo Self - patient is the insured MEDICAL (GENERAL) HISTORY Medical History History ICD Code Type 2 diabetes mellitus with other diab etic kidney complication E11.29 Chronic obstructive pulmonary disease, u nspecified J44.9 Personal history of nicotine dependence Z87.891 Other specified personal risk factors, n ot elsewhere classified Z91.89 PVD (peripheral vascular disease) I73.9 Type 2 diabetes mellitus with diabetic p olyneuropathy E11.42 Charcot foot due to diabetes mellitus E1 1.610 Chronic systolic (congestive) heart fail ure I50.22 Opioid use, unspecified, uncomplicated F 11.90 Proteinuria, unspecified R80.9 Diabetes mellitus with cataract E11.36 Unspecified cirrhosis of liver K74.60 Obesity Snoring R06.83 Patient's noncompliance with other medic al treatment and regimen Z91.19 Cocaine abuse, uncomplicated F14.10 Hyperlipidemia, unspecified E78.5 Deficiency of other specified B group vi tamins E53.8 Type 2 diabetes mellitus wit h unspecified diabetic retinopathy without macular edema E11.319 Chronic kidney disease, stage 3 unspecif ied N18.30 Cyst of pancreas K86.2 Abnormal electrocardiogram [ECG] [EKG] R 94.31 Peripheral autonomic neuropathy in disor ders classified elsewhere G99.0 Left bundle-branch block, unspecified I4 4.7 Personal history of other infectious and parasitic diseases Z86.19 S/P cardiac cath Hepatitis B antibody positive Surgical History Surgery Date(Month/Year) (12/11/2016 @ [facility]) Diminutive tubular adenomas X4 (04/14/2014) Abscess
--- NOTE | 2023-03-22 09:39 | PC.NURSE ---
dr beach will try for IV access, several attempt made
--- NOTE | 2023-03-22 10:10 | PC.NURSE ---
dr beach obtained ultrasound right AC.
[2023-03-22 10:15] LABS: MANUAL DIFF FLAG NO
[2023-03-22 10:17] VITALS: BP 135/90; PULSE 118; RESP 17; O2SAT 96
[2023-03-22 10:19] LABS: Basophils Percent Auto 0.3 % (0-2); Eosinophils Percent Auto 0.3 % (0-4); Hematocrit 29.7 % (42.0-52.0); Hemoglobin 9.7 g/dl (14.0-18.0); Imm Gran Abs Auto 0.08 X10*3/uL (0.00-0.03); Imm Gran Pct Auto 0.8 % (0.0-0.4); Lymphocytes Absolute Auto 2.9 X10*3/uL (1.2-4.9); Lymphocytes Percent Auto 28.5 % (20-40); Mean Corpuscular HGB Conc 32.7 g/dl (31.0-36.0); Mean Corpuscular Hemoglobin 26.1 pg (27.0-33.0); Mean Corpuscular Volume 79.8 fL (80.0-98.0); Mean Platelet Volume 9.5 fL (9.4-12.4); Monocytes Absolute Auto 0.8 X10*3/uL (0.1-1.2); Neutrophils Absolute Auto 6.4 x10*3/uL (2.0-8.3); Neutrophils Percent Auto 62.1 % (45-73); Platelet Count 140 X10*3/uL (160-400); Red Blood Count 3.72 X10*6/uL (4.60-5.80); Red Cell Distribution Width 15.3 % (11.0-16.0); White Blood Count 10.3 X10*3/uL (4.8-10.8)
[2023-03-22 10:32] LABS: Lactic Acid 1.1 mmol/L (0.5-2.0)
[2023-03-22 10:37] LABS: Alanine Aminotransferase 64 U/L (0-40); Albumin Level 3.6 g/dL (3.5-5.0); Alkaline Phosphatase 103 U/L (39-117); Anion Gap 13 (12-20); Aspartate Amino Transferase 41 U/L (5-37); Bilirubin Total 1.6 mg/dL (0.0-1.0); Blood Urea Nitrogen 31 mg/dL (9-16); C Reactive Protein 7.28 mg/dL (< or = 0.50); Calcium 9.7 mg/dL (8.4-10.2); Carbon Dioxide 30 mmol/L (22-29); Chloride 100 mmol/L (96-108); Creatinine Clr Calc Pharmacy 78.2; Estimated Glomerular Filt Rate 57; Glucose Random 221 mg/dL (60-115); Potassium 3.6 mmol/L (3.3-5.1); Sodium 139 mmol/L (135-145); Total Protein 7.8 g/dL (6.5-8.0)
[2023-03-22 10:59] LABS: Erythrocyte Sedimentation Rate 70 MM/HR (0-15)
--- NOTE | 2023-03-22 11:58 | PC.NURSE ---
antibiotic not given patient is difficult access, ultrasound guided line placed by dr beach patient pulled out. several attempts made to get access spoke with CAROLE Tabares stated it was fine pt is being transfered to [facility]
[2023-03-22 12:01] VITALS: BP 124/72; PULSE 111; RESP 17; O2SAT 96
== END 2023-03-22 12:30 | disposition home or self-care (01) ==
PROVIDERS: Physician Assistant Medical; Emergency Provider Emergency Medicine Emergency Medical Services
DX: S91.302A Unspecified open wound, left foot, initial encounter (principal); M79.672 Pain in left foot; Y29.XXXA Contact with blunt object, undetermined intent, initial encounter; Y93.9 Activity, unspecified; Y92.9 Unspecified place or not applicable; Y99.9 Unspecified external cause status; Z91.148 Patient's other noncompliance with medication regimen for other reason; Z79.899 Other long term (current) drug therapy
CPT/HCPCS: 36415; 73630; 80053; 83605; 85025; 85652; 86140; 87040; 87147; 87205; 99282; 99283; 99284

== ENCOUNTER 2023-04-30 12:42 | Outpatient (RCR) | payer OTHER, SELFPAY ==
[2023-09-11 11:17] LABS: Estimated Average Glucose 186 mg/dL; Hemoglobin A1c % 8.1 % (<6.0)
== END 2023-10-02 17:00 | disposition home or self-care (01) ==
LOC: HO.WCC 12:42
PROVIDERS: Surgery; Visit Provider Physician Assistant
DX: E11.622 Type 2 diabetes mellitus with other skin ulcer (principal); E11.51 Type 2 diabetes mellitus with diabetic peripheral angiopathy without gangrene; L97.325 Non-pressure chronic ulcer of left ankle with muscle involvement without evidence of necrosis; E11.621 Type 2 diabetes mellitus with foot ulcer; L97.422 Non-pressure chronic ulcer of left heel and midfoot with fat layer exposed; L97.425 Non-pressure chronic ulcer of left heel and midfoot with muscle involvement without evidence of necrosis; E11.69 Type 2 diabetes mellitus with other specified complication; M86.472 Chronic osteomyelitis with draining sinus, left ankle and foot; E11.610 Type 2 diabetes mellitus with diabetic neuropathic arthropathy; E11.40 Type 2 diabetes mellitus with diabetic neuropathy, unspecified; M84.475G Pathological fracture, left foot, subsequent encounter for fracture with delayed healing; I10 Essential (primary) hypertension; Z87.39 Personal history of other diseases of the musculoskeletal system and connective tissue; Z86.19 Personal history of other infectious and parasitic diseases; Z79.899 Other long term (current) drug therapy
CPT/HCPCS: 10060; 10140; 11042; 11043; 11044; 17250; 36415; 83036; 87070; 87073; 87077; 87186; 87205; 97597

== ENCOUNTER 2023-05-29 13:08 | Outpatient (AMB) | payer OTHER, SELFPAY ==
[2023-05-29 13:16] VITALS: BMI 36.9
--- NOTE | 2023-05-29 13:16 | A.OFFVIS_ITS ---
Intake Vital Signs 05/29/23 13:16 Height 6 ft Weight 272 lb BMI 36.9 Intake Visit Reasons: Follow up & Arterial Intake Note: follow up US 12/27/22 & Arterial US 01/08/23 (ordered by [facility]) for bilateral LE non-healing wounds, now healed. Has Left hardware fixture for injury. Goes [facility] 1x per week Allergies No Known Allergies [No Known Allergies*] Allergy (Verified 05/29/23 13:34) HPI Follow up & Arterial HPI Details Very pleasant 67-year-old gentleman presents for follow-up regarding nonhealing ulcer. He had originally been seen in the hospital. He subsequently we underwent ex fix by Podiatry. He reports that the wound has been progressively closing. He now presents for routine follow-up with venous insufficiency testing. [facility] Medical History (Updated 06/01/23 @ 10:34 by Junior Rivera MD) PAD (peripheral artery disease) DM foot Acute renal failure Hyperkalemia Type 2 diabetes mellitus with foot ulcer Lymphedema Hypertension Substance use disorder Diabetes mellitus Opiate use B12 deficiency anemia Surgical History H/O colonoscopy Social History Household Members: Family Housing: House Do you presently have visiting nurse or other home services: No Alcohol intake: never Patient Tobacco Use Status: Never used Tobacco Second Hand Smoke Exposure: No Substance Use Type: Crack/Cocaine and Heroin service: No Current occupational status: disabled Review of Systems Const All systems reviewed & are unremarkable except as noted in HPI and below Reports no additional complaints ENT Reports Normal hearing present Card Denies chest pain, Denies chest pain at rest, Denies chest pain with activity and Denies pedal edema Resp Denies cough GI Denies abdominal pain Musc Denies abnormal gait, Denies muscle cramps and Denies radiating pain into limb Skin/Breast Denies skin ulcer and Denies wounds Neuro Reports Normal hearing present and Denies abnormal gait Psych Reports no additional complaints Physical Exam Vital Signs: BMI result Body Mass Index 36.9 Const General: cooperative, healthy appearing and comfortable Orientation/consciousness: oriented to person, oriented to place and oriented to time HEENT Head: Yes normal to inspection Neck Neck: Yes normal visual inspection Carotids: no bruits Chest Chest palpation & inspection: normal inspection of the chest Resp Effort & Inspection: normal respiratory effort and able to speak in complete sentences Auscultation: clear to auscultation bilaterally, no crackles, no rales, no rhonchi and no wheezes Cardio Rate: regular rate Rhythm: regular rhythm Heart sounds: S1 normal heart sound present and S2 normal heart sound present Bruits: no carotid bruits Peripheral pulses: Peripheral pulses 2+ throughout GI Inspection: Yes normal to inspection Skin Other: Left leg dressing clean dry intact Wounds: no wounds Hair: normal Neuro General: oriented to person, oriented to place and oriented to time Cranial nerves: Yes CN's II-XII intact bilaterally and Yes Normal hearing present Cognition (Neuro): normal cognition Motor exam (neuro): 5/5 motor strength present throughout Extrem Other: venous exam: No significant superficial varicosities or spider telangiectasias, minimal edema General: No clubbing, No cyanosis and No edema Psych Appearance: grossly normal Mental Status: mental status grossly normal Speech and movement: Normal speech and movement present Results Reviewed Results Reviewed: Brief summary of venous insufficiency testing is as follows: right great saphenous vein: negative right small saphenous vein: negative right accessory vein: none present left great saphenous vein: negative left small saphenous vein: negative left accessory vein: none present Please note there is no evidence of any venous aneurysms or significant tortuosity Arterial testing dated 01/08/2023 demonstrates left leg monophasic flow SFA on down. Assessment & Plan Assessment & Plan (1) Varicose veins of left lower extremity with inflammation: Code(s): I83.12 - Varicose veins of left lower extremity with inflammation Plan: In short patient is negative for any significant venous insufficiency. At the current time would continue with local wound care. Patient will follow up with us in approximately 3 weeks time to ensure that the wound is progressing in the right direction. Thank you for allowing us to assist in his care. (2) Diabetic ulcer of left foot: Comment: Foot area is healing and patient feels well Code(s): E11.621 - Type 2 diabetes mellitus with foot ulcer; L97.529 - Non-pressure chronic ulcer of other part of left foot with unspecified severity Plan: Under care Podiatry. Reports that is doing fairly well. Will follow up with us in approximately 3 weeks time. (3) PAD (peripheral artery disease): Code(s): I73.9 - Peripheral vascular disease, unspecified Plan: Patient does have an element of arterial disease. On the SFA we do see monophasic flow. Although the ASHLYN is point 8 May be artifactually elevated. Once the ex fix is off would require endovascular intervention with the hopes that this would assist in wound closure. We will follow this patient with you. Thank you for allowing us to assist in his care. If there are any questions or concerns please do not hesitate to contact us. Coding Level of Care Code Est Pt Level 4 (37223) Diagnoses Varicose veins of left lower extremity with inflammation I83.12 Diabetic ulcer of left foot E11.621; L97.529 PAD (peripheral artery disease) I73.9
== END 2023-05-29 14:32 | disposition home or self-care (01) ==
PROVIDERS: Visit Provider Surgery Vascular Surgery
DX: I83.12 Varicose veins of left lower extremity with inflammation (principal); E11.621 Type 2 diabetes mellitus with foot ulcer; L97.529 Non-pressure chronic ulcer of other part of left foot with unspecified severity; I73.9 Peripheral vascular disease, unspecified
CPT/HCPCS: 99214

== ENCOUNTER → 2023-05-29 13:08 | Outpatient (BNVA) | payer OTHER, SELFPAY | PROVIDERS: Visit Provider Surgery Vascular Surgery | DX: I83.12 Varicose veins of left lower extremity with inflammation (principal); E11.621 Type 2 diabetes mellitus with foot ulcer; L97.529 Non-pressure chronic ulcer of other part of left foot with unspecified severity; I73.9 Peripheral vascular disease, unspecified; F11.20 Opioid dependence, uncomplicated; F14.20 Cocaine dependence, uncomplicated | CPT/HCPCS: 99212 ==

== ENCOUNTER 2023-07-03 14:56 | Inpatient (IN) | payer OTHER, SELFPAY ==
--- NOTE | ~2023-07-03 | MR_ITS ---
EXAMINATION: MR ANKLE WITHOUT AND WITH CONTRAST, LEFT CLINICAL INFORMATION: Nonhealing foot ulcer. Evaluate for osteomyelitis. COMPARISON: Most recent left foot radiographs dated 07/03/[address] dated 11/12/2022. TECHNIQUE: MRI of the ankle was performed before and after the intravenous administration of 10 mL Gadavist on a high-field scanner. FINDINGS: Postsurgical change redemonstrated within the calcaneus consistent with screw tracks related to prior external fixation as well a screw track within the talus. There is edema and enhancement within the screw tracks. Additionally there is postsurgical change consistent with a calcaneal osteotomy without osseous bridging. The resultant osteotomy site measures up to 1.2 cm in width. Soft tissue ulceration along the plantar aspect of the calcaneus measuring up to 2.9 cm in ML dimension with significant subcutaneous edema/enhancement and soft tissue thickening, consistent with cellulitis. Increased T2 and decreased T1 marrow signal within the adjacent plantar aspect of the calcaneus as well as extending along the osteotomy site. Significantly increased T2 and decreased T1 marrow signal within the talus and calcaneus adjacent to the subtalar joints where there is prominent postcontrast marrow enhancement. Minimal marrow edema within the distal fibula where there is mild postcontrast enhancement. No significant marrow edema or enhancement within the distal tibia. [id number] subtalar and tibiotalar joint effusions with peripheral enhancement. The visualized flexor and extensor tendons are grossly intact, however, evaluation is limited on CT examination. Diffuse muscle atrophy with mild edema. Circumferential subcutaneous edema. MR/MR ankle LT wo/w con IMPRESSION: 1. Postsurgical change consistent with calcaneal osteotomy without osseous bridging. 2. Tissue ulceration and cellulitis along the plantar aspect of the calcaneus. Acute osteomyelitis within the adjacent calcaneus extending along the adjacent calcaneal osteotomy site to the level of the subtalar joints. Prominent osteomyelitis within the calcaneus and talus as well as more mildly within the distal fibula. Moderate subtalar and tibiotalar joint effusions, likely representing septic arthritis. No evidence of osteomyelitis within the distal tibia. 3. Diffuse muscle atrophy with mild edema, consistent with myositis. 4. Circumferential subcutaneous edema.
--- NOTE | ~2023-07-03 | US_ITS ---
EXAMINATION: NONINVASIVE ANKLE BRACHIAL INDICES OF BOTH LOWER EXTREMITIES CLINICAL INFORMATION: Nonhealing left heel ulcer. COMPARISON: None. TECHNIQUE: Ankle-brachial indices were calculated bilaterally and PVR tracings were performed at the level of the ankles. This study was performed at rest only. FINDINGS: a) AT REST: 1. The ankle-brachial indices are: Right (PT) 1.18 and left (PT) 1.20. >0.97-1.25 = normal - no significant arterial disease. 0.75-0.96 = mild peripheral arterial disease. 0.5-0.74 = moderate peripheral arterial disease. <0.50 = severe peripheral arterial disease. 2. PVR waveforms at ankle: Unremarkable. US/US ASHLYN complete IMPRESSION: Bilateral ankle-brachial indices are within normal limits.
--- NOTE | ~2023-07-03 | XR_ITS ---
EXAMINATION: XR FOOT, LEFT CLINICAL INFORMATION: Heel ulcer. COMPARISON: None available. TECHNIQUE: AP, lateral, and oblique views of the left foot. FINDINGS: The bony structures are heterogeneous. Anterior vascular calcification calcification extends to the digits. There is an apparent soft tissue wound along the heel with soft tissue swelling throughout the heel. There is an apparent bony defect along the inferior calcaneus. There are some lucencies seen within the bony calcaneus superiorly and anteriorly. There is generalized soft tissue swelling about the foot. XR/XR foot LT min 3V IMPRESSION: Extensive arteriovascular calcification and soft tissue swelling about the foot. There is also soft tissue swelling about the heel with an apparent defect. There is also a cortical defect within the inferior calcaneus and some apparent lucencies projecting along the calcaneus. Bony involvement is considered. Consider CT or MRI evaluation.
--- NOTE | ~2023-07-03 | US_ITS ---
EXAMINATION: COLOR-FLOW DUPLEX IMAGING OF THE LEFT LOWER EXTREMITY ARTERIAL SYSTEM CLINICAL INFORMATION: The patient is a 67-year-old man with a nonhealing left heel ulcer. LEFT FEMORAL RUNOFF VELOCITIES: The left common femoral artery a systolic velocity is 152.0 cm/s. The waveform is triphasic. The right profunda femoral artery peak systolic velocity is 112 cm/s. The waveform is triphasic. The right proximal superficial femoral artery peak systolic velocity is 139.8 cm/s. The waveform is triphasic. The right mid superficial femoral artery peak systolic velocity is 156.6 cm/s. The waveform is triphasic. The right distal superficial femoral artery peak systolic velocity is 138.9 cm/s. The waveform is biphasic. The right popliteal artery peak systolic velocity is 160.5 cm/s. The waveform is biphasic. The right posterior tibial artery peak systolic velocity is 182.2 cm/s. The waveform is monophasic. US/US arterial duplex LE LT IMPRESSION: There is mild right lower extremity inflow and outflow arterial disease. No critical lesion is identified with duplex.
[2023-07-03 15:24] VITALS: BP 142/80; PULSE 96; PULSE 98; RESP 18; TEMP 36.7; O2SAT 95; O2SAT 98; BMI 31.3
[2023-07-03 15:28] LABS: Glucose, Whole Blood 493 mg/dL (60-115)
[2023-07-03 15:45] VITALS: BP 166/67; PULSE 98; RESP 18; TEMP 36.7; O2SAT 98
[2023-07-03 16:27] LABS: MANUAL DIFF FLAG NO
[2023-07-03 16:30] LABS: VBG Base Excess 7.7 mmol/L; VBG HCO3 33 mmol/L (22-26); VBG pCO2 52 mmHg; VBG pH 7.41 (7.32-7.43); VBG pO2 28 mmHg
[2023-07-03 16:31] LABS: Basophils Percent Auto 0.2 % (0-2); Eosinophils Percent Auto 0.2 % (0-4); Hemoglobin 9.9 g/dl (14.0-18.0); Imm Gran Abs Auto 0.04 X10*3/uL (0.00-0.03); Imm Gran Pct Auto 0.4 % (0.0-0.4); Lymphocytes Absolute Auto 1.5 X10*3/uL (1.2-4.9); Lymphocytes Percent Auto 16.8 % (20-40); Mean Corpuscular HGB Conc 31.9 g/dl (31.0-36.0); Mean Corpuscular Hemoglobin 26.4 pg (27.0-33.0); Mean Corpuscular Volume 82.7 fL (80.0-98.0); Mean Platelet Volume 9.6 fL (9.4-12.4); Monocytes Absolute Auto 0.6 X10*3/uL (0.1-1.2); Monocytes Percent Auto 6.3 % (2-11); Neutrophils Absolute Auto 6.9 x10*3/uL (2.0-8.3); Neutrophils Percent Auto 76.1 % (45-73); Platelet Count 299 X10*3/uL (160-400); Red Blood Count 3.75 X10*6/uL (4.60-5.80); Red Cell Distribution Width 14.3 % (11.0-16.0)
[2023-07-03 16:33] LABS: Venous Blood Gas Refer to POC result
--- NOTE | 2023-07-03 16:39 | ED.GENADULT ---
HPI - General Adult General Chief complaint: General Medical Stated complaint: DIABETIC PT,HIGH BLOOD SUGAR, 525 WHEN TAKEN Time Seen by Provider: 07/03/23 16:02 Source: patient and EMS Mode of arrival: EMS Limitations: no limitations History of Present Illness HPI narrative: Patient is a 67-year-old male presenting to emergency department via EMS for evaluation of hyperglycemia. Patient states that he had a zoom appointment with his net developer with [facility] through [facility], whom he advised that he has been having elevated blood glucose reading, at home was >600, and has been experiencing Mandie dip see a, polyuria. When asked, he reports that he ran out of his insulin 1 week ago. He was seen by a new primary care provider that day who reportedly declined to refill his insulin. He reports a recent extensive history with admissions to [facility] and penitent[facility] facilities; in January of 2023 he sustained a calcaneal fracture, reportedly secondary to extensive left heel diabetic ulcer, this ultimately required external fixation which was removed at the end of May. He has been home from the hospital for approximately 1 month, states that his blood sugars were well controlled while he had his insulin. He reports that while in the hospital he was taking long-acting insulin 90 units in the morning and in the evening, however upon discharge approximately 1 month ago was only able to take 80 units in the morning and evening because this was the highest that the pen would dilate up to. He states that he has continued to take his short acting insulin 3 times daily as per sliding scale. At this time he denies headache, dizziness, lightheadedness, vision changes, chest pain, shortness of breath, difficulty breathing, nausea, vomiting, abdominal pain. He has chronic neuropathy of the extremities. He still has a diabetic ulcer to the left heel, he is followed by [facility] wound care clinic, he has dressing changes every 2 days with VNA including calcium alginate, use of an orthopedic boot, currently is not on any antibiotics has history of osteomyelitis secondary to the wound. He does state that over the past 2 days he has been noticing increasing redness and warmth to the lateral aspect of the heel with increased purulent drainage from the wound. He however denies fevers, chills, edema, pain or erythema extending up the leg. Related Data Home Medications Medication Instructions Recorded Confirmed atorvastatin 20 mg tablet 1 tab PO DAILY 10/13/21 07/03/23 gabapentin 300 mg capsule 1 cap PO TID 10/13/21 07/03/23 metoprolol succinate 50 mg 50 mg PO DAILY 10/13/21 07/03/23 tablet,extended release 24 hr amlodipine 2.5 mg tablet 1 tab PO DAILY 11/12/22 07/03/23 hydrochlorothiazide 25 mg tablet 1 tab PO DAILY 11/12/22 11/12/22 insulin aspart U-100 100 unit/mL See Protocol subcut QIDACHS 07/03/23 07/03/23 (3 mL) subcutaneous pen (Novolog FlexPen U-100 Insulin aspart) insulin glargine 100 unit/mL 80 unit subcut BID 07/03/23 07/03/23 subcutaneous solution (Lantus U-100 Insulin) lisinopril 2.5 mg tablet 2.5 mg PO DAILY 07/03/23 07/03/23 Allergies Allergy/AdvReac Type Severity Reaction Status Date / Time No Known Allergies Allergy Verified 07/03/23 19:54 [No Known Allergies*] Review of Systems Review of Systems: Yes all other systems are reviewed and are negative [facility] Past Medical History Attestation statement: The following information was validated with the patient. Source: old records reviewed Medical History PAD (peripheral artery disease) DM foot Acute renal failure Hyperkalemia Type 2 diabetes mellitus with foot ulcer Lymphedema Hypertension Substance use disorder Diabetes mellitus Opiate use B12 deficiency anemia Surgical History H/O colonoscopy Social History Social History Household Members: Family Housing: House Do you presently have visiting nurse or other home services: No Alcohol intake: never Patient Tobacco Use Status: Never used Tobacco Smoked in Last 30 Days: No Second Hand Smoke Exposure: No Use of substances other than those prescribed or required for medical reasons: No Substance Use Type: Crack/Cocaine and Heroin Advance Directives: No Advance Directives Information Provided: No Nutrition Risks: No Nutritional Risk service: No Current occupational status: disabled Physical Exam ED Vital Signs: Vital Signs - 24 hr 07/03/23 15:24 07/03/23 15:45 Temperature 98.1 F 98.1 F Pulse Rate 98 98 Respiratory Rate 18 18 Blood Pressure 166/67 H Pulse Oximetry 98 98 Oxygen Delivery Method Room Air Room Air BMI result Body Mass Index 31.3 Appearance: Alert.?Oriented to person, place and time. No acute distress.?Normal affect. Eyes: Pupils equal, round and reactive to light.?EOMi ENT: Pharynx normal.?? Neck: Normal inspection.? Neck supple.?? CVS: Heart sounds normal. Normal heart rate and rhythm.? Pulses normal.?? Respiratory: No respiratory distress.? Lung sounds clear to auscultation bilaterally?? Abdomen: Soft and non-tender. Normoactive bowel sounds. Skin: Skin warm and dry.? Normal skin color.? Extremities: No lower extremity edema.? Neuro: Moves all extremities spontaneously. Sensation intact bilaterally. No focal neuro deficits. Ambulates with normal steady gait. Course Reevaluation(s) Reevaluation #1: CBC is without leukocytosis, has normocytic anemia which appears consistent with baseline not needing transfusion criteria. VBG without evidence of acidosis, bicarb elevated at 30. Hyponatremia of 131, however with hyperglycemia, corrected sodium level of 138 within normal range. Renal function is at baseline. Non anion gap hyperglycemia, beta hydroxybutyrate within normal range, no evidence of DKA at this time urinalysis pending at this time. LFTs elevated consistent with baseline. Time: 17:02 Reevaluation #2: Notably elevated ESR and CRP 104/27 respectively, with x-ray revealing soft tissue swelling about the foot heel with an apparent defect cortical defect within the inferior calcaneus and some apparent lucencies projecting along the calcaneus, bony involvement is considered, concern for acute osteomyelitis, will of her with Zosyn and vancomycin at this time. He does not meet SIRS criteria, at this time not consistent with sepsis. Discussed this case with hospitalist, Dr. Harris, who accepts patient for admission. Medications Administered Generic Name Dose Route Start Last Admin Trade Name Freq PRN Reason Stop Dose Admin Acetaminophen 650 mg 07/03/23 19:48 07/03/23 20:06 Acetaminophen 325 Mg Tablet PO 650 mg Q6H PRN Administration Pain, Mild (Pain Scale 1-3) Enoxaparin Sodium 40 mg 07/03/23 20:00 07/03/23 20:07 Enoxaparin Sodium 40 Mg/0.4 Ml Syringe SUBCUT 40 mg Q24H KELSEY Administration Gabapentin 300 mg 07/03/23 21:00 07/03/23 21:32 Gabapentin 300 Mg Capsule PO 300 mg TID KELSEY Administration Piperacillin Sod/Tazobactam 100 mls @ 200 mls/hr 07/03/23 21:00 07/03/23 22:07 Sod 4.5 gm/ Sodium Chloride IV Infused Q6H KELSEY Infusion Insulin Glargine 60 unit 07/03/23 21:00 07/03/23 21:32 Insulin Glargine,Hum.Rec.Anlog 100 Unit/Ml 10 Ml Vial SUBCUT 60 unit BID KELSEY Administration Insulin Human Lispro 0 unit 07/03/23 21:00 07/03/23 21:31 Insulin Lispro 100 Unit/Ml 3 Ml Vial SUBCUT 8 unit QIDACHS [facility] Administration Protocol Sodium Chloride 3 ml 07/04/23 00:00 07/04/23 01:06 0.9 % Sodium Chloride Flush 3 Ml Syringe IVFLUSH 3 ml QSHIFT [facility] Administration Discontinued Medications Generic Name Dose Route Start Last Admin Trade Name Freq PRN Reason Stop Dose Admin Sodium Chloride 1,000 mls @ 999 mls/hr 07/03/23 16:45 07/03/23 18:09 Ns IV 07/03/23 17:45 Infused .Q1H1M KELSEY Infusion Vancomycin HCl 2,000 mg in 500 mls @ 250 mls/hr 07/03/23 17:58 07/03/23 21:34 Vancomycin/Ns IV 07/03/23 19:57 Infused ONCE ONE Infusion Insulin Human Lispro 10 unit 07/03/23 17:58 07/03/23 18:32 Insulin Lispro 100 Unit/Ml 3 Ml Vial SUBCUT 07/03/23 17:59 10 unit ONCE ONE Administration Insulin Human Regular 5 unit 07/03/23 16:39 07/03/23 17:13 Insulin Regular, Human 100 Unit/Ml 3 Ml Vial IVPUSH 07/03/23 16:40 5 unit ONCE ONE Administration Medical Decision Making Medical Decision Making [facility] Narrative: Patient is a 67-year-old male with past medical history of peripheral arterial disease, insulin-dependent diabetes with chronic left heel ulcer and history of osteomyelitis, iron deficiency anemia, B12 deficiency, history of MSSA bacteremia presenting to the emergency department for hyperglycemia, symptomatic with polyuria and polydipsia, and expressed concerns of increased redness and erythema to the lateral aspect of the left heel where his chronic wound is present. As per HPI, he ran out of his long-acting insulin, which is likely contributing to his hyperglycemia. Anti pain down serum labs including ESR and CRP in addition to XR imaging to exclude acute osseous abnormality that might suggest acute osteomyelitis he is however afebrile, wound bed appearance consistent with chronic feeling, the extremity is neurovascularly intact distally. In addition will obtain labs to exclude DKA/ HHS including beta hydroxybutyrate, venous blood gas, and chemistries. Point of care glucose of 493, patient received 1 L normal saline IV fluid, in addition to insulin regular 5 units IV and will re-evaluate. Differential Diagnosis Differential Diagnoses: The differential diagnosis associated with the presentation includes (As noted above) Admission/Observation Consideration of admission/observation: Escalation of care including admission/observation considered I considered admission for hyperglycemia, see course narrative for further detail Lab Data MDM Lab Attestation statement: I reviewed the patient's lab results. (See course narrative for further detail) 07/03/23 16:21 07/03/23 16:21 Labs: Lab Results 07/03/23 07/03/23 07/03/23 Range/Units 15:24 16:21 16:25 WBC 9.0 (4.8-10.8) X10*3/uL RBC 3.75 L (4.60-5.80) X10*6/uL Hgb 9.9 L (14.0-18.0) g/dl Hct 31.0 L (42.0-52.0) % MCV 82.7 (80.0-98.0) fL MCH 26.4 L (27.0-33.0) pg MCHC 31.9 (31.0-36.0) g/dl RDW 14.3 (11.0-16.0) % Plt Count 299 D (160-400) X10*3/uL MPV 9.6 (9.4-12.4) fL Immature Gran % (Auto) 0.4 (0.0-0.4) % Neut % (Auto) 76.1 H (45-73) % Lymph % (Auto) 16.8 L (20-40) % Dawes % (Auto) 6.3 (2-11) % Eos % (Auto) 0.2 (0-4) % Baso % (Auto) 0.2 (0-2) % Lymph # (Auto) 1.5 (1.2-4.9) X10*3/uL Dawes # (Auto) 0.6 (0.1-1.2) X10*3/uL Eos # (Auto) 0.0 (0.0-0.4) X10*3/uL Baso # (Auto) 0.0 (0.0-0.2) X10*3/uL Abs Immat Gran (auto) 0.04 H (0.00-0.03) X10*3/uL Absolute Neuts (auto) 6.9 (2.0-8.3) x10*3/uL Absolute Nucleated RBC 0.000 (0.0-0.012) X10*3/uL Nucleated RBC % (auto) 0.0 (0.0-0.2) /100WBC ESR (0-15) MM/HR VBG pH 7.41 (7.32-7.43) VBG pCO2 52 mmHg VBG pO2 28 mmHg VBG HCO3 33 H (22-26) mmol/L VBG O2 Saturation 41.0 % VBG Base Excess 7.7 mmol/L Sodium 131 L (135-145) mmol/L Potassium 4.2 (3.3-5.1) mmol/L Chloride 95 L (96-108) mmol/L Carbon Dioxide 27 (22-29) mmol/L Anion Gap 13 (12-20) BUN 23 H (9-16) mg/dL Creatinine 1.05 (0.5-1.4) mg/dL Estim Creat Clear Calc 99.2 Estimated GFR > 60 POC Glucose 493 H* (60-115) mg/dL Random Glucose 528 H* (60-115) mg/dL Lactic Acid (0.5-2.0) mmol/L Calcium 9.5 (8.4-10.2) mg/dL Magnesium 1.8 (1.6-2.6) mg/dL Total Bilirubin 0.7 (0.0-1.0) mg/dL AST 48 H (5-37) U/L ALT 59 H (0-40) U/L Alkaline Phosphatase 124 H (39-117) U/L C-Reactive Protein (< or = 0.50) mg/dL Total Protein 8.0 (6.5-8.0) g/dL Albumin 2.9 L (3.5-5.0) g/dL Lipase 33 (8-78) U/L Beta-Hydroxybutyrate 0.19 (0.02-0.27) mmol/L Urine Color Urine Appearance Urine pH (5.0-9.0) Ur Specific [place] (1.005-1.025) Urine Protein (Neg-Trace) mg/dL Urine Glucose (UA) (Negative) mg/dL Urine Ketones (Negative) mg/dL Urine Blood (Negative) Urine Nitrite (Negative) Ur Leukocyte Esterase (Negative) Urine RBC (0-2) /HPF Urine WBC (0-5) /HPF Ur Squamous Epith Cells (0-2) /HPF Urine Bacteria (None Seen) Hyaline Casts (0-2) /LPF 07/03/23 07/03/23 07/03/23 Range/Units 16:34 17:08 17:53 WBC (4.8-10.8) X10*3/uL RBC (4.60-5.80) X10*6/uL Hgb (14.0-18.0) g/dl Hct (42.0-52.0) % MCV (80.0-98.0) fL MCH (27.0-33.0) pg MCHC (31.0-36.0) g/dl RDW (11.0-16.0) % Plt Count (160-400) X10*3/uL MPV (9.4-12.4) fL Immature Gran % (Auto) (0.0-0.4) % Neut % (Auto) (45-73) % Lymph % (Auto) (20-40) % Dawes % (Auto) (2-11) % Eos % (Auto) (0-4) % Baso % (Auto) (0-2) % Lymph # (Auto) (1.2-4.9) X10*3/uL Dawes # (Auto) (0.1-1.2) X10*3/uL Eos # (Auto) (0.0-0.4) X10*3/uL Baso # (Auto) (0.0-0.2) X10*3/uL Abs Immat Gran (auto) (0.00-0.03) X10*3/uL Absolute Neuts (auto) (2.0-8.3) x10*3/uL Absolute Nucleated RBC (0.0-0.012) X10*3/uL Nucleated RBC % (auto) (0.0-0.2) /100WBC ESR 104 H (0-15) MM/HR VBG pH (7.32-7.43) VBG pCO2 mmHg VBG pO2 mmHg VBG HCO3 (22-26) mmol/L VBG O2 Saturation % VBG Base Excess mmol/L Sodium (135-145) mmol/L Potassium (3.3-5.1) mmol/L Chloride (96-108) mmol/L Carbon Dioxide (22-29) mmol/L Anion Gap (12-20) BUN (9-16) mg/dL Creatinine (0.5-1.4) mg/dL Estim Creat Clear Calc Estimated GFR POC Glucose (60-115) mg/dL Random Glucose (60-115) mg/dL Lactic Acid 1.7 (0.5-2.0) mmol/L Calcium (8.4-10.2) mg/dL Magnesium (1.6-2.6) mg/dL Total Bilirubin (0.0-1.0) mg/dL AST (5-37) U/L ALT (0-40) U/L Alkaline Phosphatase (39-117) U/L C-Reactive Protein 27.01 H (< or = 0.50) mg/dL Total Protein (6.5-8.0) g/dL Albumin (3.5-5.0) g/dL Lipase (8-78) U/L Beta-Hydroxybutyrate (0.02-0.27) mmol/L Urine Color Yellow Urine Appearance Clear Urine pH 5.5 (5.0-9.0) Ur Specific [place] >= 1.030 H (1.005-1.025) Urine Protein 300 (3+) H (Neg-Trace) mg/dL Urine Glucose (UA) >=1000 H (Negative) mg/dL Urine Ketones Negative (Negative) mg/dL Urine Blood Small (1+) H (Negative) Urine Nitrite Negative (Negative) Ur Leukocyte Esterase Negative (Negative) Urine RBC 0-2 (0-2) /HPF Urine WBC 0-5 (0-5) /HPF Ur Squamous Epith Cells 0-2 (0-2) /HPF Urine Bacteria None Seen (None Seen) Hyaline Casts 3-5 (0-2) /LPF 07/03/23 07/03/23 Range/Units 18:45 19:16 WBC (4.8-10.8) X10*3/uL RBC (4.60-5.80) X10*6/uL Hgb (14.0-18.0) g/dl Hct (42.0-52.0) % MCV (80.0-98.0) fL MCH (27.0-33.0) pg MCHC (31.0-36.0) g/dl RDW (11.0-16.0) % Plt Count (160-400) X10*3/uL MPV (9.4-12.4) fL Immature Gran % (Auto) (0.0-0.4) % Neut % (Auto) (45-73) % Lymph % (Auto) (20-40) % Dawes % (Auto) (2-11) % Eos % (Auto) (0-4) % Baso % (Auto) (0-2) % Lymph # (Auto) (1.2-4.9) X10*3/uL Dawes # (Auto) (0.1-1.2) X10*3/uL Eos # (Auto) (0.0-0.4) X10*3/uL Baso # (Auto) (0.0-0.2) X10*3/uL Abs Immat Gran (auto) (0.00-0.03) X10*3/uL Absolute Neuts (auto) (2.0-8.3) x10*3/uL Absolute Nucleated RBC (0.0-0.012) X10*3/uL Nucleated RBC % (auto) (0.0-0.2) /100WBC ESR (0-15) MM/HR VBG pH (7.32-7.43) VBG pCO2 mmHg VBG pO2 mmHg VBG HCO3 (22-26) mmol/L VBG O2 Saturation % VBG Base Excess mmol/L Sodium (135-145) mmol/L Potassium (3.3-5.1) mmol/L Chloride (96-108) mmol/L Carbon Dioxide (22-29) mmol/L Anion Gap (12-20) BUN (9-16) mg/dL Creatinine (0.5-1.4) mg/dL Estim Creat Clear Calc Estimated GFR POC Glucose 402 H* 398 H* (60-115) mg/dL Random Glucose (60-115) mg/dL Lactic Acid (0.5-2.0) mmol/L Calcium (8.4-10.2) mg/dL Magnesium (1.6-2.6) mg/dL Total Bilirubin (0.0-1.0) mg/dL AST (5-37) U/L ALT (0-40) U/L Alkaline Phosphatase (39-117) U/L C-Reactive Protein (< or = 0.50) mg/dL Total Protein (6.5-8.0) g/dL Albumin (3.5-5.0) g/dL Lipase (8-78) U/L Beta-Hydroxybutyrate (0.02-0.27) mmol/L Urine Color Urine Appearance Urine pH (5.0-9.0) Ur Specific [place] (1.005-1.025) Urine Protein (Neg-Trace) mg/dL Urine Glucose (UA) (Negative) mg/dL Urine Ketones (Negative) mg/dL Urine Blood (Negative) Urine Nitrite (Negative) Ur Leukocyte Esterase (Negative) Urine RBC (0-2) /HPF Urine WBC (0-5) /HPF Ur Squamous Epith Cells (0-2) /HPF Urine Bacteria (None Seen) Hyaline Casts (0-2) /LPF Radiology Impression Discussion of test interpretation with radiology: I have reviewed the radiologist's reading. Radiologist Impression: XR/XR foot LT min 3V IMPRESSION: Extensive arteriovascular calcification and soft tissue swelling about the foot. There is also soft tissue swelling about the heel with an apparent defect. There is also a cortical defect within the inferior calcaneus and some apparent lucencies projecting along the calcaneus. Bony involvement is considered. Consider CT or MRI evaluation. Independent Historian Clinical information obtained from an independent historian. History obtained from or confirmed by: EMS External Record Review External record reviewed: Outpatient record Discharge Plan Discharge Clinical Impression: Diabetic ulcer of left foot Patient Disposition: Admitted As Inpatient
[2023-07-03 16:54] LABS: Alanine Aminotransferase 59 U/L (0-40); Albumin Level 2.9 g/dL (3.5-5.0); Alkaline Phosphatase 124 U/L (39-117); Anion Gap 13 (12-20); Aspartate Amino Transferase 48 U/L (5-37); Beta-Hydroxybutyrate 0.19 mmol/L (0.02-0.27); Bilirubin Total 0.7 mg/dL (0.0-1.0); Blood Urea Nitrogen 23 mg/dL (9-16); Calcium 9.5 mg/dL (8.4-10.2); Carbon Dioxide 27 mmol/L (22-29); Chloride 95 mmol/L (96-108); Creatinine Clr Calc Pharmacy 99.2; Estimated Glomerular Filt Rate > 60; Lipase 33 U/L (8-78); Magnesium 1.8 mg/dL (1.6-2.6); Potassium 4.2 mmol/L (3.3-5.1); Sodium 131 mmol/L (135-145)
[2023-07-03] MEDS: Insulin Regular, Human 100 UNIT/ML 3 ML VIAL IVPUSH (17:13)
[2023-07-03] MEDS: 0.9 % Sodium Chloride 1,000 ML 999 ML IV (17:13)
[2023-07-03 17:42] LABS: Lactic Acid 1.7 mmol/L (0.5-2.0)
[2023-07-03 17:47] LABS: C Reactive Protein 27.01 mg/dL (< or = 0.50)
[2023-07-03 18:00] LABS: Erythrocyte Sedimentation Rate 104 MM/HR (0-15)
[2023-07-03 18:02] LABS: Appearance Urine Clear; Color Urine Yellow; Glucose Urine UA >=1000 mg/dL (Negative); Leukocyte Esterase Urine Negative (Negative); Nitrite Urine Negative (Negative); PH 5.5 (5.0-9.0); Specific Gravity - Urine >= 1.030 (1.005-1.025); UMIC TRIGGER UACC YES; Urine Blood Small (1+) (Negative); Urine Ketones Negative (Negative); Urine Protein 300 (3+) mg/dL (Neg-Trace)
[2023-07-03 18:15] LABS: Bacteria Urine None Seen (None Seen); RBC Urine 0-2 /HPF (0-2); Squamous Epithelial Cell Urine 0-2 /HPF (0-2); WBC Urine 0-5 /HPF (0-5)
[2023-07-03] MEDS: Insulin Lispro 100 UNIT/ML 3 ML VIAL 10 UNIT SUBCUT (18:32)
[2023-07-03] MEDS: vancomycin/NS 2,000 MG/500 ML PLAST..BAG 250 MG IV (18:33)
[2023-07-03 19:20] LABS: Glucose, Whole Blood 398 mg/dL (60-115)
[2023-07-03 19:44] LABS: Glucose Random 528 mg/dL (60-115)
[2023-07-03 20:00] VITALS: BP 148/78; PULSE 97; RESP 16; TEMP 37.7; O2SAT 95
[2023-07-03 20:03] LABS: Glucose, Whole Blood 402 mg/dL (60-115)
[2023-07-03] MEDS: Acetaminophen 325 MG TABLET 650 MG PO (20:06)
[2023-07-03] MEDS: Enoxaparin Sodium 40 MG/0.4 ML SYRINGE SUBCUT (20:07)
--- NOTE | 2023-07-03 20:17 | PHA.MEDREC ---
Pharmacy Consult ? Medication Reconciliation Pharmacy has completed the medication reconciliation. Pt states he no longer takes methadone, has been taking lantus 80 mg bid, does not take losartan 25 mg
--- NOTE | 2023-07-03 20:29 | PC.NURSE ---
Addendum entered by Julisa Barros 07/03/23 21:20: Pt has ortho boot for left foot. Original Note: This screenplay writer assumed care at 1900, Pt AOx3, Pt is reporting 6/10 bilateral leg pain, left foot 2nd stage ulcer on heel noted, bilateral lower leg edema noted, skin appears to be very dry and flaky, hot to touch up to the knees bilaterally, redness noted to the left foot outer side, Pictures uploaded by provider in chart. Meds given per MAR. Vancomycin running per MAR, due to one IV site, pt is a hard stick. Pt is resting, calm and cooperative. Pt aware of plan.
--- NOTE | 2023-07-03 20:41 | PM.IMHP ---
History of Present Illness Date of Service: 07/03/23 Attending physician on admission: Kassandra Harris Chief Complaint: hyperglycemia, foot ulcer/pain 67-year-old male with history of peripheral artery disease, uncontrolled insulin-dependent type 2 diabetes, chronic non pressure ulcer of the left foot, lymphedema, hypertension, history of substance use disorder, history osteomyelitis, history of MSSA bacteremia presented to the ED at the recommendation of his adobe layer due to hyperglycemia. The patient reports he has not had any insulin in the last week as his PCP reportedly would not fill this. His glucometer was reading >600 in he was symptomatic with polydipsia and polyuria. He is reporting increased pain in left heel over the last few days that is significantly limiting his ability to ambulate. Uses a walker at baseline. He has a chronic ulcer of the left foot and follows with the wound clinic once weekly, Podiatry, and vascular surgery. He denies any purulent drainage. No fevers or chills. On arrival, vital stable. No leukocytosis. Renal function normal, electrolyte levels normal except for sodium 131, chloride 95, anion gap closed. Glucose on arrival 528 improved to 398 with 5 units regular insulin and 10 units Humalog. Lactic acid 1.7. AST 48, ALT 59, alkaline phosphatase 124. CRP 27.01, ESR 104. X-ray of the left foot shows extensive arterial vascular calcifications soft tissue swelling about the foot as well as soft tissue swelling about the heel with an apparent defect. There is also cortical defects in the inferior calcaneus since some apparent lucencies projecting along the calcaneus, bony involvement considered. He has been empirically treated with IV vancomycin and Zosyn and 1L IVNS. Review of Systems Review of Systems: General: No fevers, malaise, unintentional weight loss Cardiovascular: No chest pain, palpitations, or leg edema Respiratory: No shortness of breath, wheezing, cough GI: No abdominal pain, nausea, vomiting, diarrhea, constipation, melena, hematochezia : +polyuria, +polydipsia. No dysuria, hematuria, decreased urinary output MSK: No myalgia, back pain. +left foot pain Neuro: No headaches, weakness, paresthesias Skin: No rashes. +chronic ulcer l heel [facility] Medical History PAD (peripheral artery disease) DM foot Acute renal failure Hyperkalemia Type 2 diabetes mellitus with foot ulcer Lymphedema Hypertension Substance use disorder Diabetes mellitus Opiate use B12 deficiency anemia Surgical History H/O colonoscopy Social History Household Members: Family Housing: House Do you presently have visiting nurse or other home services: No Alcohol intake: never Patient Tobacco Use Status: Never used Tobacco Smoked in Last 30 Days: No Second Hand Smoke Exposure: No Use of substances other than those prescribed or required for medical reasons: No Substance Use Type: Crack/Cocaine and Heroin Advance Directives: No Advance Directives Information Provided: No Nutrition Risks: No Nutritional Risk service: No Current occupational status: [employer] Allergies Allergy/AdvReac Type Severity Reaction Status Date / Time No Known Allergies Allergy Verified 07/03/23 19:54 [No Known Allergies*] Active Medications: Current Medications Acetaminophen (Acetaminophen 325 Mg Tablet) 650 mg PO Q6H PRN PRN Reason: Pain, Mild (Pain Scale 1-3) Last Admin: 07/03/23 20:06 Dose: 650 mg Amlodipine Besylate (Amlodipine Besylate 2.5 Mg Tablet) 2.5 mg PO DAILY KELSEY; Protocol Atorvastatin Calcium (Atorvastatin Calcium 20 Mg Tablet) 20 mg PO DAILY [facility] Dextrose (Dextrose 50 % 25 Gm/50 Ml Syringe) 25 gm IVPUSH Q15M PRN; Protocol PRN Reason: per Hypoglycemia Standing Ord. Enoxaparin Sodium (Enoxaparin Sodium 40 Mg/0.4 Ml Syringe) 40 mg SUBCUT Q24H KELSEY Last Admin: 07/03/23 20:07 Dose: 40 mg Gabapentin (Gabapentin 300 Mg Capsule) 300 mg PO TID KELSEY Glucose (Glucose Gel 15 Gm Gel..Gram.) 15 gm PO Q15M PRN; Protocol PRN Reason: per Hypoglycemia Standing Ord. Piperacillin Sod/Tazobactam (Sod 4.5 gm/ Sodium Chloride) 100 mls @ 200 mls/hr IV Q6H [facility] Insulin Glargine (Insulin Glargine,Hum.Rec.Anlog 100 Unit/Ml 10 Ml Vial) 60 unit SUBCUT BID KELSEY Insulin Human Lispro (Insulin Lispro 100 Unit/Ml 3 Ml Vial) 0 unit SUBCUT QIDACHS KELSEY; Protocol Lisinopril (Lisinopril 2.5 Mg Tablet) 2.5 mg PO DAILY [facility]; Protocol Melatonin (Melatonin 3 Mg Tablet) 6 mg PO BEDTIME PRN PRN Reason: Insomnia Metoprolol Succinate (Metoprolol Succinate Er 50 Mg Tab.Er.24h) 50 mg PO DAILY [facility]; Protocol Ondansetron HCl (Ondansetron Hcl 4 Mg/2 Ml Vial) 4 mg IVPUSH Q8H PRN PRN Reason: Nausea and Vomiting Pharmacy Consult (Consult Rx Vancomycin Dosing) 1 each MISCELLANE DAILY PRN PRN Reason: Consult order Sodium Chloride (0.9 % Sodium Chloride Flush 3 Ml Syringe) 3 [facility] Medications Medication Instructions Recorded Confirmed Last Taken Type atorvastatin 20 mg tablet 1 tab PO DAILY 10/13/21 07/03/23 06/28/23 History gabapentin 300 mg capsule 1 cap PO TID 10/13/21 07/03/23 07/03/23 History metoprolol succinate 50 mg 50 mg PO DAILY 10/13/21 07/03/23 06/28/23 History tablet,extended release 24 hr amlodipine 2.5 mg tablet 1 tab PO DAILY 11/12/22 07/03/23 06/28/23 History hydrochlorothiazide 25 mg tablet 1 tab PO DAILY 11/12/22 11/12/22 11/10/22 History insulin aspart U-100 100 unit/mL See Protocol subcut QIDACHS 07/03/23 07/03/23 Unknown History (3 mL) subcutaneous pen (Novolog FlexPen U-100 Insulin aspart) insulin glargine 100 unit/mL 80 unit subcut BID 07/03/23 07/03/23 Unknown History subcutaneous solution (Lantus U-100 Insulin) lisinopril 2.5 mg tablet 2.5 mg PO DAILY 07/03/23 07/03/23 06/28/23 History Physical Exam Vital Signs and Narrative: Vital Signs: Last Vital Signs Temp 99.9 F 07/03/23 20:00 Pulse 97 07/03/23 20:00 Resp 16 07/03/23 20:00 BP 148/78 H 07/03/23 20:00 Pulse Ox 95 07/03/23 20:00 O2 Del Method Room Air 07/03/23 20:00 BMI result Body Mass Index 31.3 Constitutional - Awake and Alert, No apparent distress Eyes - PERRLA, EOMI Cardiovascular - S1S2, RRR, 2+ ble edema Respiratory - Normal lung expansion, Normal respiratory effort, No respiratory distress, CTA bilaterally Gastrointestinal - NT / ND; +BS; No rebound or guarding Extremities - no calf tenderness bilaterally, no swelling Skin - Warm/Dry. Dry, erythemaous shallow ulceration of the plantar aspect left heel with surrounding faint erythema and significant edema and ttp Neurological - Alert & oriented x3 Psychological - Appropriate affect Results Labs 07/03/23 16:21 07/03/23 16:21 Labs: Laboratory Results - last 24 hr 07/03/23 07/03/23 07/03/23 15:24 16:21 16:25 MCV 82.7 MCH 26.4 L MCHC 31.9 RDW 14.3 Plt Count 299 D MPV 9.6 Immature Gran % (Auto) 0.4 Neut % (Auto) 76.1 H Lymph % (Auto) 16.8 L [place] % (Auto) 6.3 Eos % (Auto) 0.2 Baso % (Auto) 0.2 Lymph # (Auto) 1.5 [place] # (Auto) 0.6 Eos # (Auto) 0.0 Baso # (Auto) 0.0 Abs Immat Gran (auto) 0.04 H Absolute Neuts (auto) 6.9 Absolute Nucleated RBC 0.000 Nucleated RBC % (auto) 0.0 ESR VBG pH 7.41 VBG pCO2 52 VBG pO2 28 VBG HCO3 33 H VBG O2 Saturation 41.0 VBG Base Excess 7.7 Anion Gap 13 Estim Creat Clear Calc 99.2 Estimated GFR > 60 POC Glucose 493 H* Random Glucose 528 H* Lactic Acid Calcium 9.5 Magnesium 1.8 Total Bilirubin 0.7 AST 48 H ALT 59 H Alkaline Phosphatase 124 H C-Reactive Protein Total Protein 8.0 Albumin 2.9 L Lipase 33 Beta-Hydroxybutyrate 0.19 Urine Color Urine Appearance Urine pH Ur Specific [place] Urine Protein Urine Glucose (UA) Urine Ketones Urine Blood Urine Nitrite Ur Leukocyte Esterase Urine RBC Urine WBC Ur Squamous Epith Cells Urine Bacteria Hyaline Casts 07/03/23 07/03/23 07/03/23 16:34 17:08 17:53 MCV MCH MCHC RDW Plt Count MPV Immature Gran % (Auto) Neut % (Auto) Lymph % (Auto) [place] % (Auto) Eos % (Auto) Baso % (Auto) Lymph # (Auto) [place] # (Auto) Eos # (Auto) Baso # (Auto) Abs Immat Gran (auto) Absolute Neuts (auto) Absolute Nucleated RBC Nucleated RBC % (auto) ESR 104 H VBG pH VBG pCO2 VBG pO2 VBG HCO3 VBG O2 Saturation VBG Base Excess Anion Gap Estim Creat Clear Calc Estimated GFR POC Glucose Random Glucose Lactic Acid 1.7 Calcium Magnesium Total Bilirubin AST ALT Alkaline Phosphatase C-Reactive Protein 27.01 H Total Protein Albumin Lipase Beta-Hydroxybutyrate Urine Color Yellow Urine Appearance Clear Urine pH 5.5 Ur Specific [place] >= 1.030 H Urine Protein 300 (3+) H Urine Glucose (UA) >=1000 H Urine Ketones Negative Urine Blood Small (1+) H Urine Nitrite Negative Ur Leukocyte Esterase Negative Urine RBC 0-2 Urine WBC 0-5 Ur Squamous Epith Cells 0-2 Urine Bacteria None Seen Hyaline Casts 3-5 07/03/23 07/03/23 18:45 19:16 MCV MCH MCHC RDW Plt Count MPV Immature Gran % (Auto) Neut % (Auto) Lymph % (Auto) [place] % (Auto) Eos % (Auto) Baso % (Auto) Lymph # (Auto) [place] # (Auto) Eos # (Auto) Baso # (Auto) Abs Immat Gran (auto) Absolute Neuts (auto) Absolute Nucleated RBC Nucleated RBC % (auto) ESR VBG pH VBG pCO2 VBG pO2 VBG HCO3 VBG O2 Saturation VBG Base Excess Anion Gap Estim Creat Clear Calc Estimated GFR POC Glucose 402 H* 398 H* Random Glucose Lactic Acid Calcium Magnesium Total Bilirubin AST ALT Alkaline Phosphatase C-Reactive Protein Total Protein Albumin Lipase Beta-Hydroxybutyrate Urine Color Urine Appearance Urine pH Ur Specific [place] Urine Protein Urine Glucose (UA) Urine Ketones Urine Blood Urine Nitrite Ur Leukocyte Esterase Urine RBC Urine WBC Ur Squamous Epith Cells Urine Bacteria Hyaline Casts Imaging Radiologist's Impressions: Impressions Foot X-Ray 07/03/23 16:44 IMPRESSION: Extensive arteriovascular calcification and soft tissue swelling about the foot. There is also soft tissue swelling about the heel with an apparent defect. There is also a cortical defect within the inferior calcaneus and some apparent lucencies projecting along the calcaneus. Bony involvement is considered. Consider CT or MRI evaluation. Assessment and Plan (1) Diabetic ulcer of left foot: Status: Acute (2) Hyperglycemia: Status: Acute Plan 67-year-old male with history of peripheral artery disease, uncontrolled insulin-dependent type 2 diabetes, chronic non pressure ulcer of the left foot, lymphedema, hypertension, history of substance use disorder, history osteomyelitis, history of MSSA bacteremia admitted for suspected osteomyelitis L foot #Suspected osteomyelitis left heel -has a chronic ulcer of left heel -ESR 104, CRP 27 -MRI left foot ordered -IV vancomycin and Zosyn -vascular surgery consult -consider ID consult -follow CBC, cultures # non pressure chronic ulcer of left foot -no purulent drainage -aquatic physiotherapist consult # uncontrolled insulin-dependent type 2 diabetes with hyperglycemia -AG closed, no acidosis -hemoglobin A1c pending, patient reports has been out of insulin for about a week -resume Lantus 80 units twice daily -Humalog on sliding scale -diabetic diet -POC glucose # peripheral arterial disease -follows outpatient with vascular surgery -monophasic flow noted in the SFA. ASHLYN 0.8 -per vascular surgery, will require endovascular intervention to assist with wound closure -vascular surgery consult #HTN -bp reasonably controlled -continue amlodipine, lisinopril, metoprolol DVT prophylaxis-Lovenox DNR/DNI Patient requires inpatient stay at least 2 midnights for management of suspected osteomyelitis of left heel with chronic diabetic foot ulcer requiring IV antibiotics, expert consultation Time Spent With Patient Time: Total time managing care of this patient today ____ minutes. Quality Stroke Does the patient have a stroke diagnosis?: No VTE Prior VTE?: No VTE Risk Level:: Medical - moderate - high VTE Device Contraindication: Treatment Not Indicated VTE Drug Contraindication: N/A - Med Ordered
[2023-07-03 21:19] VITALS: BMI 32.2
[2023-07-03 21:20] LABS: Amphetamine Screen Urine Not Detected (Not Detect); Barbiturates, Urine Not Detected (Not Detect); Benzodiazepines Screen Urine Not Detected (Not Detect); Cannabinoid Screen Urine POSITIVE (Not Detect); Cocaine Screen Urine Not Detected (Not Detect); Fentanyl, urine Not Detected (Not Detect); Opiate Screen Urine Not Detected (Not Detect); Phencyclidine Screen Urine Not Detected (Not Detect)
[2023-07-03 21:22] LABS: Glucose, Whole Blood 338 mg/dL (60-115)
[2023-07-03] MEDS: Insulin Lispro 100 UNIT/ML 3 ML VIAL SUBCUT (21:31)
[2023-07-03] MEDS: Gabapentin 300 MG CAPSULE PO (21:32)
[2023-07-03] MEDS: Insulin Glargine,Hum.rec.anlog 100 UNIT/ML 10 ML VIAL 60 UNIT SUBCUT (21:32)
--- NOTE | 2023-07-03 21:32 | PC.NURSE ---
MRI screening form done and faxed to MRI.
[2023-07-03] MEDS: Piperacillin Sodium/Tazobactam 4.5 GM in 0.9 % Sodium Chloride 100 ML IV (21:36)
[2023-07-04] MEDS: 0.9 % Sodium Chloride Flush 3 ML SYRINGE IVFLUSH ×2 (01:06→19:53)
[2023-07-04 02:23] VITALS: BP 137/64; PULSE 85; RESP 16; TEMP 37.3; O2SAT 97
[2023-07-04] MEDS: Piperacillin Sodium/Tazobactam 4.5 GM in 0.9 % Sodium Chloride 100 ML IV ×4 (03:38→21:02)
[2023-07-04 03:41] LABS: Glucose, Whole Blood 287 mg/dL (60-115)
--- NOTE | 2023-07-04 03:48 | PC.NURSE ---
Dr. Harris made aware of POC: 287, no new orders at this time.
[2023-07-04 05:57] LABS: MANUAL DIFF FLAG NO
[2023-07-04 06:01] LABS: Basophils Percent Auto 0.1 % (0-2); Eosinophils Percent Auto 0.5 % (0-4); Hematocrit 27.4 % (42.0-52.0); Hemoglobin 8.6 g/dl (14.0-18.0); Imm Gran Abs Auto 0.04 X10*3/uL (0.00-0.03); Imm Gran Pct Auto 0.5 % (0.0-0.4); Lymphocytes Absolute Auto 1.3 X10*3/uL (1.2-4.9); Lymphocytes Percent Auto 16.6 % (20-40); Mean Corpuscular HGB Conc 31.4 g/dl (31.0-36.0); Mean Corpuscular Hemoglobin 26.4 pg (27.0-33.0); Mean Platelet Volume 10.2 fL (9.4-12.4); Monocytes Absolute Auto 0.6 X10*3/uL (0.1-1.2); Monocytes Percent Auto 7.4 % (2-11); Neutrophils Absolute Auto 5.9 x10*3/uL (2.0-8.3); Neutrophils Percent Auto 74.9 % (45-73); Platelet Count 237 X10*3/uL (160-400); Red Blood Count 3.26 X10*6/uL (4.60-5.80); Red Cell Distribution Width 14.4 % (11.0-16.0); White Blood Count 7.9 X10*3/uL (4.8-10.8)
[2023-07-04 06:47] LABS: Anion Gap 13 (12-20); Blood Urea Nitrogen 19 mg/dL (9-16); Calcium 8.7 mg/dL (8.4-10.2); Carbon Dioxide 23 mmol/L (22-29); Chloride 101 mmol/L (96-108); Creatinine Clr Calc Pharmacy 100.6; Estimated Glomerular Filt Rate > 60; Glucose Random 352 mg/dL (60-115); Potassium 3.6 mmol/L (3.3-5.1); Sodium 133 mmol/L (135-145)
--- NOTE | 2023-07-04 06:49 | PC.NURSE ---
Critical lab: glucose: 352, DR. Harris made aware. No new orders at this time.
[2023-07-04 07:05] LABS: Estimated Average Glucose 174 mg/dL; Hemoglobin A1c % 7.7 % (<6.0)
[2023-07-04] MEDS: vancomycin HCL 1,000 MG in 0.9 % Sodium Chloride 250 ML 270 MG IV (07:18)
[2023-07-04] MEDS: Insulin Lispro 100 UNIT/ML 3 ML VIAL SUBCUT ×4 (07:27→21:01)
[2023-07-04 07:28] LABS: Glucose, Whole Blood 354 mg/dL (60-115)
[2023-07-04] MEDS: Metoprolol Succinate ER 50 MG TAB.ER.24H PO (09:03)
[2023-07-04] MEDS: Atorvastatin Calcium 20 MG TABLET PO (09:03)
[2023-07-04] MEDS: lisinopriL 2.5 MG TABLET PO (09:03)
[2023-07-04] MEDS: Insulin Glargine,Hum.rec.anlog 100 UNIT/ML 10 ML VIAL 60 UNIT SUBCUT ×2 (09:04→21:01)
[2023-07-04] MEDS: amLODIPine Besylate 2.5 MG TABLET PO (09:06)
--- NOTE | 2023-07-04 09:54 | PC.NURSE ---
Report to [facility]al [facility] transported to unit with RNs
--- NOTE | 2023-07-04 10:01 | MHC.CM.PN ---
PT REPORTS HE LIVES WITH HIS MOTHER BUT HAS ONLY BEEN HOME A FEW DAYS HE REPORTS HE SPENT 7 MONTHS IN AND OUT OF HOSPITALS AND REHABS PT IS NOW ACTIVE WITH [facility] HE HAS A CANE, WALKER, AND WHEEL CHAIR COPY OF HCP OBTAINED PCP: DIPAK PATRICK IMM DELIVERED DCP: PT REPORTS HE IS GOING HOME AT DC WITH RESUMPTION OF [facility] HE DOES NOT WANT TO RETURN TO [facility]. HE WILL NEED CHAIR VAN VS BLS TRANSPORT
[2023-07-04 10:20] VITALS: BP 160/73; PULSE 80; RESP 18; TEMP 36.8; O2SAT 97
[2023-07-04 11:26] LABS: Glucose, Whole Blood 368 mg/dL (60-115)
--- NOTE | 2023-07-04 12:32 | PM.CNGS ---
History of Present Illness Consult details Consult date: 07/04/23 Reason for consult: wound care Narrative: Very pleasant 67-year-old gentleman with a history of peripheral vascular disease and uncontrolled diabetes presents with nonhealing ulcer of the left foot is more of a pressure ulcer towards the calcaneus. Of note he had an ex fix placed by Podiatry under Dr. Castillo. He does have significant Charcot foot. He now presents for follow-up. He was admitted for uncontrolled diabetes peer Review of Systems Review of Systems: Yes all other systems are reviewed and are negative Constitutional: Constitutional: Reports no additional constitutional complaints ENT: Reports Normal hearing present Cardiovascular: Cardiovascular: Denies chest pain, Denies chest pain at rest, Denies chest pain with activity and Denies pedal edema Respiratory: Respiratory: Denies cough Gastrointestinal: Gastrointestinal: Denies abdominal pain Musculoskeletal: Musculoskeletal: Denies abnormal gait, Denies muscle cramps and Denies radiating pain into limb Integumentary/Breasts: Skin/Breast: Denies skin ulcer and Denies wounds Neurologic: Reports Normal hearing present and Denies abnormal gait Psychiatric: Psychiatric: Reports no additional psychiatric complaints [facility] Past Medical History Medical History PAD (peripheral artery disease) DM foot Acute renal failure Hyperkalemia Type 2 diabetes mellitus with foot ulcer Lymphedema Hypertension Substance use disorder Diabetes mellitus Opiate use B12 deficiency anemia Surgical History Surgical History H/O colonoscopy Social History Social History Household Members: Family Housing: House Do you presently have visiting nurse or other home services: Yes Alcohol intake: never Patient Tobacco Use Status: Never used Tobacco Second Hand Smoke Exposure: No Substance Use Type: Crack/Cocaine and Heroin Advance Directives Date on File: 07/04/23 service: No Current occupational status: disabled Meds Allergies Allergy/AdvReac Type Severity Reaction Status Date / Time No Known Allergies Allergy Verified 07/03/23 19:54 [No Known Allergies*] Active Medications: Current Medications Acetaminophen (Acetaminophen 325 Mg Tablet) 650 mg PO Q6H PRN PRN Reason: Pain, Mild (Pain Scale 1-3) Last Admin: 10/24/23 20:06 Dose: 650 mg Amlodipine Besylate (Amlodipine Besylate 2.5 Mg Tablet) 2.5 mg PO DAILY PENDING SALE TO [facility]; Protocol Last Admin: 07/04/23 09:06 Dose: 2.5 mg Atorvastatin Calcium (Atorvastatin Calcium 20 Mg Tablet) 20 mg PO DAILY PENDING SALE TO [facility] Last Admin: 07/04/23 09:03 Dose: 20 mg Dextrose (Dextrose 50 % 25 Gm/50 Ml Syringe) 25 gm IVPUSH Q15M PRN; Protocol PRN Reason: per Hypoglycemia Standing Ord. Enoxaparin Sodium (Enoxaparin Sodium 40 Mg/0.4 Ml Syringe) 40 mg SUBCUT Q24H PENDING SALE TO [facility] Last Admin: 07/03/23 20:07 Dose: 40 mg Gabapentin (Gabapentin 300 Mg Capsule) 300 mg PO TID PENDING SALE TO [facility] Last Admin: 07/04/23 09:06 Dose: Not Given Glucose (Glucose Gel 15 Gm Gel..Gram.) 15 gm PO Q15M PRN; Protocol PRN Reason: per Hypoglycemia Standing Ord. Piperacillin Sod/Tazobactam (Sod 4.5 gm/ Sodium Chloride) 100 mls @ 200 mls/hr IV Q6H PENDING SALE TO [facility] Last Infusion: 07/04/23 09:55 Dose: Infused Vancomycin HCl 1,000 mg/ (Sodium Chloride) 270 mls @ 270 mls/hr IV Q12H PENDING SALE TO [facility] Last Infusion: 07/04/23 08:37 Dose: Infused Insulin Glargine (Insulin Glargine,Hum.Rec.Anlog 100 Unit/Ml 10 Ml Vial) 60 unit SUBCUT BID PENDING SALE TO [facility] Last Admin: 07/04/23 09:04 Dose: 60 unit Insulin Human Lispro (Insulin Lispro 100 Unit/Ml 3 Ml Vial) 0 unit SUBCUT QIDACHS PENDING SALE TO [facility]; Protocol Last Admin: 07/04/23 11:30 Dose: 10 unit Lisinopril (Lisinopril 2.5 Mg Tablet) 2.5 mg PO DAILY PENDING SALE TO [facility]; Protocol Last Admin: 07/04/23 09:03 Dose: 2.5 mg Melatonin (Melatonin 3 Mg Tablet) 6 mg PO BEDTIME PRN PRN Reason: Insomnia Metoprolol Succinate (Metoprolol Succinate Er 50 Mg Tab.Er.24h) 50 mg PO DAILY PENDING SALE TO [facility]; Protocol Last Admin: 07/04/23 09:03 Dose: 50 mg Ondansetron HCl (Ondansetron Hcl 4 Mg/2 Ml Vial) 4 mg IVPUSH Q8H PRN PRN Reason: Nausea and Vomiting Oxycodone HCl (Oxycodone Hcl Immed Release 5 Mg Tablet) 5 mg PO Q4H PRN PRN Reason: Pain, Severe (Pain Scale 7-10) Pharmacy Consult (Consult Rx Vancomycin Dosing) 1 each MISCELLANE DAILY PRN PRN Reason: Consult order Sodium Chloride (0.9 % Sodium Chloride Flush 3 Ml Syringe) [facility] Last Admin: 07/04/23 07:49 Dose: Not Given Home Medications Medication Instructions Recorded Confirmed Last Taken Type atorvastatin 20 mg tablet 1 tab PO DAILY 10/13/21 07/03/23 06/28/23 History gabapentin 300 mg capsule 1 cap PO TID 10/13/21 07/03/23 07/03/23 History metoprolol succinate 50 mg 50 mg PO DAILY 10/13/21 07/03/23 06/28/23 History tablet,extended release 24 hr amlodipine 2.5 mg tablet 1 tab PO DAILY 11/12/22 07/03/23 06/28/23 History hydrochlorothiazide 25 mg tablet 1 tab PO DAILY 11/12/22 11/12/22 11/10/22 History insulin aspart U-100 100 unit/mL See Protocol subcut QIDACHS 07/03/23 07/03/23 Unknown History (3 mL) subcutaneous pen (Novolog FlexPen U-100 Insulin aspart) insulin glargine 100 unit/mL 80 unit subcut BID 07/03/23 07/03/23 Unknown History subcutaneous solution (Lantus U-100 Insulin) lisinopril 2.5 mg tablet 2.5 mg PO DAILY 07/03/23 07/03/23 06/28/23 History Physical Exam Vital Signs: Vital Signs: Last Vital Signs Temp 98.3 F 07/04/23 10:20 Pulse 80 07/04/23 10:20 Resp 18 07/04/23 10:20 BP 160/73 H 07/04/23 10:20 Pulse Ox 97 07/04/23 10:20 O2 Del Method Room Air 07/04/23 10:20 BMI result Body Mass Index 32.2 Const: General: cooperative, healthy appearing and comfortable Orientation/consciousness: oriented to person, oriented to place and oriented to time HEENT: Head: Yes normal to inspection Neck: Neck: Yes normal visual inspection Carotids: no bruits Chest: Chest palpation & inspection: normal inspection of the chest Resp: Effort & Inspection: normal respiratory effort and able to speak in complete sentences Auscultation: clear to auscultation bilaterally, no crackles, no rales, no rhonchi and no wheezes Cardio: Other: Bilateral DP signals Rate: regular rate Rhythm: regular rhythm Heart sounds: S1 normal heart sound present and S2 normal heart sound present Bruits: no carotid bruits Peripheral pulses: Peripheral pulses 2+ throughout GI: Inspection: Yes normal to inspection Skin: Other: Left heel pressure ulcer relatively clean approximately 2 cm in diameter Wounds: no wounds Hair: normal Neuro: General: oriented to person, oriented to place and oriented to time Cranial nerves: Yes CN's II-XII intact bilaterally and Yes Normal hearing present Cognition (Neuro): normal cognition Motor exam (neuro): 5/5 motor strength present throughout Extrem: Other: venous exam: No significant superficial varicosities or spider telangiectasias, minimal edema General: No clubbing, No cyanosis and No edema Psych: Appearance: grossly normal Mental Status: mental status grossly normal Speech and movement: Normal speech and movement present Results Labs 07/04/23 05:20 07/04/23 05:20 Labs: Abnormal lab results 07/03/23 07/03/23 07/03/23 Range/Units 15:24 16:21 16:25 RBC 3.75 L (4.60-5.80) X10*6/uL Hgb 9.9 L (14.0-18.0) g/dl Hct 31.0 L (42.0-52.0) % MCH 26.4 L (27.0-33.0) pg Immature Gran % (Auto) (0.0-0.4) % Neut % (Auto) 76.1 H (45-73) % Lymph % (Auto) 16.8 L (20-40) % Abs Immat Gran (auto) 0.04 H (0.00-0.03) X10*3/uL ESR (0-15) MM/HR VBG HCO3 33 H (22-26) mmol/L Sodium 131 L (135-145) mmol/L Chloride 95 L (96-108) mmol/L BUN 23 H (9-16) mg/dL POC Glucose 493 H* (60-115) mg/dL Random Glucose 528 H* (60-115) mg/dL Hemoglobin A1c % 7.7 H (<6.0) % AST 48 H (5-37) U/L ALT 59 H (0-40) U/L Alkaline Phosphatase 124 H (39-117) U/L C-Reactive Protein (< or = 0.50) mg/dL Albumin 2.9 L (3.5-5.0) g/dL Ur Specific Lamar (1.005-1.025) Urine Protein (Neg-Trace) mg/dL Urine Glucose (UA) (Negative) mg/dL Urine Blood (Negative) U Marijuana (THC) Screen (Not Detect) 07/03/23 07/03/23 07/03/23 Range/Units 16:34 17:53 18:45 RBC (4.60-5.80) X10*6/uL Hgb (14.0-18.0) g/dl Hct (42.0-52.0) % MCH (27.0-33.0) pg Immature Gran % (Auto) (0.0-0.4) % Neut % (Auto) (45-73) % Lymph % (Auto) (20-40) % Abs Immat Gran (auto) (0.00-0.03) X10*3/uL ESR 104 H (0-15) MM/HR VBG HCO3 (22-26) mmol/L Sodium (135-145) mmol/L Chloride (96-108) mmol/L BUN (9-16) mg/dL POC Glucose 402 H* (60-115) mg/dL Random Glucose (60-115) mg/dL Hemoglobin A1c % (<6.0) % AST (5-37) U/L ALT (0-40) U/L Alkaline Phosphatase (39-117) U/L C-Reactive Protein 27.01 H (< or = 0.50) mg/dL Albumin (3.5-5.0) g/dL Ur Specific Lamar >= 1.030 H (1.005-1.025) Urine Protein 300 (3+) H (Neg-Trace) mg/dL Urine Glucose (UA) >=1000 H (Negative) mg/dL Urine Blood Small (1+) H (Negative) U Marijuana (THC) Screen (Not Detect) 07/03/23 07/03/23 07/03/23 Range/Units 19:16 21:04 21:18 RBC (4.60-5.80) X10*6/uL Hgb (14.0-18.0) g/dl Hct (42.0-52.0) % MCH (27.0-33.0) pg Immature Gran % (Auto) (0.0-0.4) % Neut % (Auto) (45-73) % Lymph % (Auto) (20-40) % Abs Immat Gran (auto) (0.00-0.03) X10*3/uL ESR (0-15) MM/HR VBG HCO3 (22-26) mmol/L Sodium (135-145) mmol/L Chloride (96-108) mmol/L BUN (9-16) mg/dL POC Glucose 398 H* 338 H (60-115) mg/dL Random Glucose (60-115) mg/dL Hemoglobin A1c % (<6.0) % AST (5-37) U/L ALT (0-40) U/L Alkaline Phosphatase (39-117) U/L C-Reactive Protein (< or = 0.50) mg/dL Albumin (3.5-5.0) g/dL Ur Specific Lamar (1.005-1.025) Urine Protein (Neg-Trace) mg/dL Urine Glucose (UA) (Negative) mg/dL Urine Blood (Negative) U Marijuana (THC) Screen POSITIVE H (Not Detect) 07/04/23 07/04/23 07/04/23 Range/Units 03:37 05:20 07:20 RBC 3.26 L (4.60-5.80) X10*6/uL Hgb 8.6 L (14.0-18.0) g/dl Hct 27.4 L (42.0-52.0) % MCH 26.4 L (27.0-33.0) pg Immature Gran % (Auto) 0.5 H (0.0-0.4) % Neut % (Auto) 74.9 H (45-73) % Lymph % (Auto) 16.6 L (20-40) % Abs Immat Gran (auto) 0.04 H (0.00-0.03) X10*3/uL ESR (0-15) MM/HR VBG HCO3 (22-26) mmol/L Sodium 133 L (135-145) mmol/L Chloride (96-108) mmol/L BUN 19 H (9-16) mg/dL POC Glucose 287 H 354 H* (60-115) mg/dL Random Glucose 352 H* (60-115) mg/dL Hemoglobin A1c % (<6.0) % AST (5-37) U/L ALT (0-40) U/L Alkaline Phosphatase (39-117) U/L C-Reactive Protein (< or = 0.50) mg/dL Albumin (3.5-5.0) g/dL Ur Specific Lamar (1.005-1.025) Urine Protein (Neg-Trace) mg/dL Urine Glucose (UA) (Negative) mg/dL Urine Blood (Negative) U Marijuana (THC) Screen (Not Detect) 07/04/23 Range/Units 11:17 RBC (4.60-5.80) X10*6/uL Hgb (14.0-18.0) g/dl Hct (42.0-52.0) % MCH (27.0-33.0) pg Immature Gran % (Auto) (0.0-0.4) % Neut % (Auto) (45-73) % Lymph % (Auto) (20-40) % Abs Immat Gran (auto) (0.00-0.03) X10*3/uL ESR (0-15) MM/HR VBG HCO3 (22-26) mmol/L Sodium (135-145) mmol/L Chloride (96-108) mmol/L BUN (9-16) mg/dL POC Glucose 368 H* (60-115) mg/dL Random Glucose (60-115) mg/dL Hemoglobin A1c % (<6.0) % AST (5-37) U/L ALT (0-40) U/L Alkaline Phosphatase (39-117) U/L C-Reactive Protein (< or = 0.50) mg/dL Albumin (3.5-5.0) g/dL Ur Specific Lamar (1.005-1.025) Urine Protein (Neg-Trace) mg/dL Urine Glucose (UA) (Negative) mg/dL Urine Blood (Negative) U Marijuana (THC) Screen (Not Detect) Short CBC 07/03/23 07/04/23 Range/Units 16:21 05:20 WBC 9.0 7.9 (4.8-10.8) X10*3/uL Hgb 9.9 L 8.6 L (14.0-18.0) g/dl Hct 31.0 L 27.4 L (42.0-52.0) % Plt Count 299 D 237 (160-400) X10*3/uL BMP 07/03/23 07/04/23 16:21 05:20 Sodium 131 L 133 L Potassium 4.2 3.6 Chloride 95 L 101 Carbon Dioxide 27 23 BUN 23 H 19 H Creatinine 1.05 1.05 Calcium 9.5 8.7 D Liver Function 07/03/23 Range/Units 16:21 Total Bilirubin 0.7 (0.0-1.0) mg/dL AST 48 H (5-37) U/L ALT 59 H (0-40) U/L Alkaline Phosphatase 124 H (39-117) U/L Albumin 2.9 L (3.5-5.0) g/dL Urine 07/03/23 Range/Units 17:53 Urine Color Yellow Urine Appearance Clear Urine pH 5.5 (5.0-9.0) Ur Specific Lamar >= 1.030 H (1.005-1.025) Urine Protein 300 (3+) H (Neg-Trace) mg/dL Urine Glucose (UA) >=1000 H (Negative) mg/dL All other labs normal. Imaging Additional studies: Arterial ultrasound dated 01/08/2023 demonstrates monophasic flow SFA on down. Assessment and Plan (1) PAD (peripheral artery disease): Status: Acute Plan Patient has nonhealing left lower extremity ulcer. I have discussed the pathophysiology of peripheral vascular disease with the patient. I have also discussed risk factor modification. I have reviewed the patient's arterial testing which reveals left SFA disease. I have taken the liberty of ordering a repeat ultrasound to confirm this the patient would benefit from a left leg endovascular peripheral angiogram with possible angioplasty, stent, and/or atherectomy. This has been discussed in detail with the patient along with risks, benefits, and complications. This includes but is not limited to bleeding, infection, heart attack, need for emergent surgical repair, limb ischemia, blood vessel damage, bleeding, puncture, kidney injury, bruising, allergic reaction, and skin reaction. The patient demonstrates a clear understanding. We will schedule for the next appropriate time. Thank you for allowing us to assist in this patient's care. Time Spent With Patient Time: Total time managing care of this patient today ____ minutes. Procedures Date of Service Date of Service: 07/04/23
[2023-07-04] MEDS: gadobutroL 10 ML VIAL IVPUSH (13:09)
[2023-07-04 15:19] VITALS: BP 141/65; PULSE 76; RESP 17; TEMP 36.9; O2SAT 98
[2023-07-04 16:06] LABS: Glucose, Whole Blood 271 mg/dL (60-115)
--- NOTE | 2023-07-04 16:06 | P.PNIM_ITS ---
Subjective Subjective Date of Service: 07/04/23 Interval History: no fever/chills no drainage from heel ulcer Review of Systems Review of Systems: Yes all other systems are reviewed and are negative Physical Exam 2 Vital Signs: Vital Signs: Last Vital Signs Temp 98.5 F 07/04/23 15:19 Pulse 76 07/04/23 15:19 Resp 17 07/04/23 15:19 BP 141/65 H 07/04/23 15:19 Pulse Ox 98 07/04/23 15:19 O2 Del Method Room Air 07/04/23 15:19 BMI result Body Mass Index 32.2 Gen: in no acute distress HEENT: sclera anicteric, moist mucus membranes Neck: supple Lungs: clear to auscultation bilaterally Heart: regular rate and rhythm, no murmurs Abd: soft, non-tender, non-distended Ext: no edema Skin: 2 cm L heel pressure ulcer Neuro: alert and oriented x3, no focal findings Psych: appropriate affect Objective Data Active Medications Acetaminophen (Acetaminophen 325 Mg Tablet) 650 mg PO Q6H PRN PRN Reason: Pain, Mild (Pain Scale 1-3) Last Admin: 07/03/23 20:06 Dose: 650 mg Documented By: TUCKER Amlodipine Besylate (Amlodipine Besylate 2.5 Mg Tablet) 2.5 mg PO DAILY [facility]; Protocol Last Admin: 07/04/23 09:06 Dose: 2.5 mg Documented By: SAHRA Atorvastatin Calcium (Atorvastatin Calcium 20 Mg Tablet) 20 mg PO DAILY [facility] Last Admin: 07/04/23 09:03 Dose: 20 mg Documented By: SAHRA Dextrose (Dextrose 50 % 25 Gm/50 Ml Syringe) 25 gm IVPUSH Q15M PRN; Protocol PRN Reason: per Hypoglycemia Standing Ord. Enoxaparin Sodium (Enoxaparin Sodium 40 Mg/0.4 Ml Syringe) 40 mg SUBCUT Q24H [facility] Last Admin: 07/03/23 20:07 Dose: 40 mg Documented By: TUCKER Gabapentin (Gabapentin 300 Mg Capsule) 300 mg PO TID [facility] Last Admin: 07/04/23 14:43 Dose: Not Given Documented By: AGUSTO Non-Admin Reason: Patient Refused Glucose (Glucose Gel 15 Gm Gel..Gram.) 15 gm PO Q15M PRN; Protocol PRN Reason: per Hypoglycemia Standing Ord. Piperacillin Sod/Tazobactam (Sod 4.5 gm/ Sodium Chloride) 100 mls @ 200 mls/hr IV Q6H [facility] Last Infusion: 07/04/23 15:15 Dose: Infused Documented By: AGUSTO Vancomycin HCl 1,000 mg/ (Sodium Chloride) 270 mls @ 270 mls/hr IV Q12H [facility] Last Infusion: 07/04/23 08:37 Dose: Infused Documented By: SAHRA Sodium Chloride (Ns) 1,000 mls @ 100 mls/hr IVCONT .Q10H [facility] Insulin Glargine (Insulin Glargine,Hum.Rec.Anlog 100 Unit/Ml 10 Ml Vial) 60 unit SUBCUT BID [facility] Last Admin: 07/04/23 09:04 Dose: 60 unit Documented By: SAHRA Insulin Human Lispro (Insulin Lispro 100 Unit/Ml 3 Ml Vial) 0 unit SUBCUT QIDACHS [facility]; Protocol Last Admin: 07/04/23 11:30 Dose: 10 unit Documented By: AGUSTO Lisinopril (Lisinopril 2.5 Mg Tablet) 2.5 mg PO DAILY [facility]; Protocol Last Admin: 07/04/23 09:03 Dose: 2.5 mg Documented By: SAHRA Melatonin (Melatonin 3 Mg Tablet) 6 mg PO BEDTIME PRN PRN Reason: Insomnia Metoprolol Succinate (Metoprolol Succinate Er 50 Mg Tab.Er.24h) 50 mg PO DAILY [facility]; Protocol Last Admin: 07/04/23 09:03 Dose: 50 mg Documented By: SAHRA Ondansetron HCl (Ondansetron Hcl 4 Mg/2 Ml Vial) 4 mg IVPUSH Q8H PRN PRN Reason: Nausea and Vomiting Oxycodone HCl (Oxycodone Hcl Immed Release 5 Mg Tablet) 5 mg PO Q4H PRN PRN Reason: Pain, Severe (Pain Scale 7-10) Pharmacy Consult (Consult Rx Vancomycin Dosing) 1 each MISCELLANE DAILY PRN PRN Reason: Consult order Sodium Chloride (0.9 % Sodium Chloride Flush 3 Ml Syringe) 3 ml IVFLUSH QSHIFT [facility] Last Admin: 07/04/23 14:43 Dose: Not Given Documented By: AGUSTO Non-Admin Reason: IV Running Labs 07/04/23 05:20 07/04/23 05:20 Labs: Laboratory Results - last 24 hr 07/03/23 07/03/23 07/03/23 15:24 16:21 16:25 MCV 82.7 MCH 26.4 L MCHC 31.9 RDW 14.3 Plt Count 299 D MPV 9.6 Immature Gran % (Auto) 0.4 Neut % (Auto) 76.1 H Lymph % (Auto) 16.8 L [place] % (Auto) 6.3 Eos % (Auto) 0.2 Baso % (Auto) 0.2 Lymph # (Auto) 1.5 [place] # (Auto) 0.6 Eos # (Auto) 0.0 Baso # (Auto) 0.0 Abs Immat Gran (auto) 0.04 H Absolute Neuts (auto) 6.9 Absolute Nucleated RBC 0.000 Nucleated RBC % (auto) 0.0 ESR VBG pH 7.41 VBG pCO2 52 VBG pO2 28 VBG HCO3 33 H VBG O2 Saturation 41.0 VBG Base Excess 7.7 Anion Gap 13 Estim Creat Clear Calc 99.2 Estimated GFR > 60 POC Glucose 493 H* Random Glucose 528 H* Estimat Average Glucose 174 Hemoglobin A1c % 7.7 H Lactic Acid Calcium 9.5 Magnesium 1.8 Total Bilirubin 0.7 AST 48 H ALT 59 H Alkaline Phosphatase 124 H C-Reactive Protein Total Protein 8.0 Albumin 2.9 L Lipase 33 Beta-Hydroxybutyrate 0.19 Urine Color Urine Appearance Urine pH Ur Specific [place] Urine Protein Urine Glucose (UA) Urine Ketones Urine Blood Urine Nitrite Ur Leukocyte Esterase Urine RBC Urine WBC Ur Squamous Epith Cells Urine Bacteria Hyaline Casts Urine Opiates Screen Urine Fentanyl Screen Ur Barbiturates Screen Ur Phencyclidine Scrn Ur Amphetamines Screen U Benzodiazepines Scrn Urine Cocaine Screen U Marijuana (THC) Screen 07/03/23 07/03/23 07/03/23 16:34 17:08 17:53 MCV MCH MCHC RDW Plt Count MPV Immature Gran % (Auto) Neut % (Auto) Lymph % (Auto) [place] % (Auto) Eos % (Auto) Baso % (Auto) Lymph # (Auto) [place] # (Auto) Eos # (Auto) Baso # (Auto) Abs Immat Gran (auto) Absolute Neuts (auto) Absolute Nucleated RBC Nucleated RBC % (auto) ESR 104 H VBG pH VBG pCO2 VBG pO2 VBG HCO3 VBG O2 Saturation VBG Base Excess Anion Gap Estim Creat Clear Calc Estimated GFR POC Glucose Random Glucose Estimat Average Glucose Hemoglobin A1c % Lactic Acid 1.7 Calcium Magnesium Total Bilirubin AST ALT Alkaline Phosphatase C-Reactive Protein 27.01 H Total Protein Albumin Lipase Beta-Hydroxybutyrate Urine Color Yellow Urine Appearance Clear Urine pH 5.5 Ur Specific [place] >= 1.030 H Urine Protein 300 (3+) H Urine Glucose (UA) >=1000 H Urine Ketones Negative Urine Blood Small (1+) H Urine Nitrite Negative Ur Leukocyte Esterase Negative Urine RBC 0-2 Urine WBC 0-5 Ur Squamous Epith Cells 0-2 Urine Bacteria None Seen Hyaline Casts 3-5 Urine Opiates Screen Urine Fentanyl Screen Ur Barbiturates Screen Ur Phencyclidine Scrn Ur Amphetamines Screen U Benzodiazepines Scrn Urine Cocaine Screen U Marijuana (THC) Screen 07/03/23 07/03/23 07/03/23 18:45 19:16 21:04 MCV MCH MCHC RDW Plt Count MPV Immature Gran % (Auto) Neut % (Auto) Lymph % (Auto) [place] % (Auto) Eos % (Auto) Baso % (Auto) Lymph # (Auto) [place] # (Auto) Eos # (Auto) Baso # (Auto) Abs Immat Gran (auto) Absolute Neuts (auto) Absolute Nucleated RBC Nucleated RBC % (auto) ESR VBG pH VBG pCO2 VBG pO2 VBG HCO3 VBG O2 Saturation VBG Base Excess Anion Gap Estim Creat Clear Calc Estimated GFR POC Glucose 402 H* 398 H* Random Glucose Estimat Average Glucose Hemoglobin A1c % Lactic Acid Calcium Magnesium Total Bilirubin AST ALT Alkaline Phosphatase C-Reactive Protein Total Protein Albumin Lipase Beta-Hydroxybutyrate Urine Color Urine Appearance Urine pH Ur Specific [place] Urine Protein Urine Glucose (UA) Urine Ketones Urine Blood Urine Nitrite Ur Leukocyte Esterase Urine RBC Urine WBC Ur Squamous Epith Cells Urine Bacteria Hyaline Casts Urine Opiates Screen Not Detected Urine Fentanyl Screen Not Detected Ur Barbiturates Screen Not Detected Ur Phencyclidine Scrn Not Detected Ur Amphetamines Screen Not Detected U Benzodiazepines Scrn Not Detected Urine Cocaine Screen Not Detected U Marijuana (THC) Screen POSITIVE H 07/03/23 07/04/23 07/04/23 21:18 03:37 05:20 MCV 84.0 MCH 26.4 L MCHC 31.4 RDW 14.4 Plt Count 237 MPV 10.2 Immature Gran % (Auto) 0.5 H Neut % (Auto) 74.9 H Lymph % (Auto) 16.6 L [place] % (Auto) 7.4 Eos % (Auto) 0.5 Baso % (Auto) 0.1 Lymph # (Auto) 1.3 [place] # (Auto) 0.6 Eos # (Auto) 0.0 Baso # (Auto) 0.0 Abs Immat Gran (auto) 0.04 H Absolute Neuts (auto) 5.9 Absolute Nucleated RBC 0.000 Nucleated RBC % (auto) 0.0 ESR VBG pH VBG pCO2 VBG pO2 VBG HCO3 VBG O2 Saturation VBG Base Excess Anion Gap 13 Estim Creat Clear Calc 100.6 Estimated GFR > 60 POC Glucose 338 H 287 H Random Glucose 352 H* Estimat Average Glucose Hemoglobin A1c % Lactic Acid Calcium 8.7 D Magnesium Total Bilirubin AST ALT Alkaline Phosphatase C-Reactive Protein Total Protein Albumin Lipase Beta-Hydroxybutyrate Urine Color Urine Appearance Urine pH Ur Specific [place] Urine Protein Urine Glucose (UA) Urine Ketones Urine Blood Urine Nitrite Ur Leukocyte Esterase Urine RBC Urine WBC Ur Squamous Epith Cells Urine Bacteria Hyaline Casts Urine Opiates Screen Urine Fentanyl Screen Ur Barbiturates Screen Ur Phencyclidine Scrn Ur Amphetamines Screen U Benzodiazepines Scrn Urine Cocaine Screen U Marijuana (THC) Screen 07/04/23 07/04/23 07:20 11:17 MCV MCH MCHC RDW Plt Count MPV Immature Gran % (Auto) Neut % (Auto) Lymph % (Auto) [place] % (Auto) Eos % (Auto) Baso % (Auto) Lymph # (Auto) [place] # (Auto) Eos # (Auto) Baso # (Auto) Abs Immat Gran (auto) Absolute Neuts (auto) Absolute Nucleated RBC Nucleated RBC % (auto) ESR VBG pH VBG pCO2 VBG pO2 VBG HCO3 VBG O2 Saturation VBG Base Excess Anion Gap Estim Creat Clear Calc Estimated GFR POC Glucose 354 H* 368 H* Random Glucose Estimat Average Glucose Hemoglobin A1c % Lactic Acid Calcium Magnesium Total Bilirubin AST ALT Alkaline Phosphatase C-Reactive Protein Total Protein Albumin Lipase Beta-Hydroxybutyrate Urine Color Urine Appearance Urine pH Ur Specific [place] Urine Protein Urine Glucose (UA) Urine Ketones Urine Blood Urine Nitrite Ur Leukocyte Esterase Urine RBC Urine WBC Ur Squamous Epith Cells Urine Bacteria Hyaline Casts Urine Opiates Screen Urine Fentanyl Screen Ur Barbiturates Screen Ur Phencyclidine Scrn Ur Amphetamines Screen U Benzodiazepines Scrn Urine Cocaine Screen U Marijuana (THC) Screen Impressions Foot X-Ray 07/03/23 16:44 IMPRESSION: Extensive arteriovascular calcification and soft tissue swelling about the foot. There is also soft tissue swelling about the heel with an apparent defect. There is also a cortical defect within the inferior calcaneus and some apparent lucencies projecting along the calcaneus. Bony involvement is considered. Consider CT or MRI evaluation. Ankle MRI 07/04/23 12:56 IMPRESSION: 1. Postsurgical change consistent with calcaneal osteotomy without osseous bridging. 2. Tissue ulceration and cellulitis along the plantar aspect of the calcaneus. Acute osteomyelitis within the adjacent calcaneus extending along the adjacent calcaneal osteotomy site to the level of the subtalar joints. Prominent osteomyelitis within the calcaneus and talus as well as more mildly within the distal fibula. Moderate subtalar and tibiotalar joint effusions, likely representing septic arthritis. No evidence of osteomyelitis within the distal tibia. 3. Diffuse muscle atrophy with mild edema, consistent with myositis. 4. Circumferential subcutaneous edema. Microbiology Microbiology Results: Microbiology 07/03/23 16:34 Blood Culture - Preliminary Blood - Venous Prelim: GPC Gram Stain only Assessment and Plan (1) Diabetic osteomyelitis: Status: Acute Plan d2 67yo F with PAD, DM2, chronic L heel pressure ulcer, HTN, hx of MSSA bacteremia + osteomyelitis presenting with nonhealing L heel pressure ulcer, admitted for suspected osteomyelitis found to have 1/2 BCx + for GPCs in clusters acute DM osteomyelitis L heel with possible bacteremia PAD - IV vanc + pip-florencia d2, follow BCx - Vascular Surgery consulted, plan angiography tomorrow; wound care consultation as well DM2 with hyperglycemia - out of insulin for a week, continue basal-bolus insulin, A1c 7.7 HLD - continue atorvastatin HTN - continue amlodipine, metoprolol succinate, lisinopril VTE ppx - LMWH dispo - TBD In my clinical judgment, the patient requires continued inpatient hospitalization for the following reasons: OR, IV ABX Time Spent With Patient Time: Total time managing care of this patient today __45 Quality Stroke Does the patient have a stroke diagnosis?: No VTE Prior VTE?: No VTE Risk Level:: Medical - moderate - high VTE Device Contraindication: Treatment Not Indicated VTE Drug Contraindication: N/A - Med Ordered
[2023-07-04 18:46] LABS: Vancomycin Random 10.3 mcg/mL (15-20)
--- NOTE | 2023-07-04 18:55 | HE.PHANOTE ---
RE VANCO TROUGH WAS 10.3 AFTER TWO DOSES. MODEL PREDICTED 10.4. WILL CONTINUE CURRENT MODEL, SUSPECTED AUC 425, TROUGH 14.3. NEXT LEVEL DUE 07/05 @1800 JOB
[2023-07-04] MEDS: Enoxaparin Sodium 40 MG/0.4 ML SYRINGE SUBCUT (19:53)
[2023-07-04 20:47] LABS: Glucose, Whole Blood 238 mg/dL (60-115)
--- NOTE | 2023-07-04 22:24 | P.CNID_ITS ---
History of Present Illness Data of Consult Service Date: 07/04/23 Requesting physician: Ulices Rao Primary Care Provider: Corby Little MD HPI Reason for consult: bacteremia,left heel ulcer purulent He presents with worsening purulence left heel. He has OM left heel with fractures. He has gram positive culture blood. I had seen him in spring and had MSSA bacteremia and left calcaneous infection. He is seeing Dr Rivera for angiogram tomorrow Review of Systems 2 Review of Systems: Yes all other systems are reviewed and are negative PMFSH Past Medical History Medical History PAD (peripheral artery disease) DM foot Acute renal failure Hyperkalemia Type 2 diabetes mellitus with foot ulcer Lymphedema Hypertension Substance use disorder Diabetes mellitus Opiate use B12 deficiency anemia Family History Family history: reviewed and not pertinent Surgical History Surgical History H/O colonoscopy Social History Social History Household Members: Family Housing: House Do you presently have visiting nurse or other home services: Yes Alcohol intake: never Patient Tobacco Use Status: Never used Tobacco Second Hand Smoke Exposure: No Substance Use Type: Crack/Cocaine and Heroin Advance Directives Date on File: 07/04/23 service: No Current occupational status: disabled Meds Allergies Allergy/AdvReac Type Severity Reaction Status Date / Time No Known Allergies Allergy Verified 07/03/23 19:54 [No Known Allergies*] Active Medications: Current Medications Acetaminophen (Acetaminophen 325 Mg Tablet) 650 mg PO Q6H PRN PRN Reason: Pain, Mild (Pain Scale 1-3) Last Admin: 07/03/23 20:06 Dose: 650 mg Amlodipine Besylate (Amlodipine Besylate 2.5 Mg Tablet) 2.5 mg PO DAILY [facility]; Protocol Last Admin: 07/04/23 09:06 Dose: 2.5 mg Atorvastatin Calcium (Atorvastatin Calcium 20 Mg Tablet) 20 mg PO DAILY [facility] Last Admin: 07/04/23 09:03 Dose: 20 mg Dextrose (Dextrose 50 % 25 Gm/50 Ml Syringe) 25 gm IVPUSH Q15M PRN; Protocol PRN Reason: per Hypoglycemia Standing Ord. Enoxaparin Sodium (Enoxaparin Sodium 40 Mg/0.4 Ml Syringe) 40 mg SUBCUT Q24H [facility] Last Admin: 07/04/23 19:53 Dose: 40 mg Gabapentin (Gabapentin 300 Mg Capsule) 300 mg PO TID [facility] Last Admin: 07/04/23 20:02 Dose: Not Given Glucose (Glucose Gel 15 Gm Gel..Gram.) 15 gm PO Q15M PRN; Protocol PRN Reason: per Hypoglycemia Standing Ord. Piperacillin Sod/Tazobactam (Sod 4.5 gm/ Sodium Chloride) 100 mls @ 200 mls/hr IV Q6H [facility] Last Infusion: 07/04/23 21:38 Dose: Infused Vancomycin HCl 1,000 mg/ (Sodium Chloride) 270 mls @ 270 mls/hr IV Q12H [facility] Last Admin: 07/04/23 20:01 Dose: Not Given Sodium Chloride (Ns) 1,000 mls @ 100 mls/hr IVCONT .Q10H [facility] Insulin Glargine (Insulin Glargine,Hum.Rec.Anlog 100 Unit/Ml 10 Ml Vial) 60 unit SUBCUT BID [facility] Last Admin: 07/04/23 21:01 Dose: 60 unit Insulin Human Lispro (Insulin Lispro 100 Unit/Ml 3 Ml Vial) 0 unit SUBCUT QIDACHS [facility]; Protocol Last Admin: 07/04/23 21:01 Dose: 10 unit Lisinopril (Lisinopril 2.5 Mg Tablet) 2.5 mg PO DAILY [facility]; Protocol Last Admin: 07/04/23 09:03 Dose: 2.5 mg Melatonin (Melatonin 3 Mg Tablet) 6 mg PO BEDTIME PRN PRN Reason: Insomnia Metoprolol Succinate (Metoprolol Succinate Er 50 Mg Tab.Er.24h) 50 mg PO DAILY [facility]; Protocol Last Admin: 07/04/23 09:03 Dose: 50 mg Ondansetron HCl (Ondansetron Hcl 4 Mg/2 Ml Vial) 4 mg IVPUSH Q8H PRN PRN Reason: Nausea and Vomiting Oxycodone HCl (Oxycodone Hcl Immed Release 5 Mg Tablet) 5 mg PO Q4H PRN PRN Reason: Pain, Severe (Pain Scale 7-10) Pharmacy Consult (Consult Rx Vancomycin Dosing) 1 each MISCELLANE DAILY PRN PRN Reason: Consult order Sodium Chloride (0.9 % Sodium Chloride Flush 3 Ml Syringe) 3 ml IVFLUSH QSHIFT [facility] Last Admin: 07/04/23 19:53 Dose: 3 ml Home Medications Medication Instructions Recorded Confirmed Last Taken Type atorvastatin 20 mg tablet 1 tab PO DAILY 10/13/21 07/03/23 06/28/23 History gabapentin 300 mg capsule 1 cap PO TID 10/13/21 07/03/23 07/03/23 History metoprolol succinate 50 mg 50 mg PO DAILY 10/13/21 07/03/23 06/28/23 History tablet,extended release 24 hr amlodipine 2.5 mg tablet 1 tab PO DAILY 11/12/22 07/03/23 06/28/23 History hydrochlorothiazide 25 mg tablet 1 tab PO DAILY 11/12/22 11/12/22 11/10/22 History insulin aspart U-100 100 unit/mL See Protocol subcut QIDACHS 07/03/23 07/03/23 Unknown History (3 mL) subcutaneous pen (Novolog FlexPen U-100 Insulin aspart) insulin glargine 100 unit/mL 80 unit subcut BID 07/03/23 07/03/23 Unknown History subcutaneous solution (Lantus U-100 Insulin) lisinopril 2.5 mg tablet 2.5 mg PO DAILY 07/03/23 07/03/23 06/28/23 History Physical Exam 2 Vital Signs: Vital Signs: Last Vital Signs Temp 98.5 F 07/04/23 15:19 Pulse 76 07/04/23 15:19 Resp 17 07/04/23 15:19 BP 141/65 H 07/04/23 15:19 Pulse Ox 98 07/04/23 15:19 O2 Del Method Room Air 07/04/23 15:19 BMI result Body Mass Index 32.2 Const: General: cooperative HEENT: Head: Yes normal to inspection Face and sinus: Yes normal facial exam Mouth: Normal oral and palatal mucosa present Teeth and gingiva: d entition normal Eyes: General: appearance normal, both eyes and all related structures P upils: Equal, round and reactive pupils present Resp: Effort & Inspection: normal respiratory effort Cardio: Rate: regular rate Rhythm: regular rhythm GI: Palpation (GI): Soft to palpation and nontender : General: Yes no CVA tenderness Back/Spine/Pelvis: Back: no CVA tenderness Skin: General skin exam: no rashes or lesions noted Neuro: General: moves all extremities Cranial nerves: Yes Equal, round and reactive pupils present Extrem: Other: purulence left heel diminished pulses Psych: Appearance: grossly normal Results Labs 07/04/23 05:20 07/04/23 05:20 Labs: Short CBC 07/04/23 Range/Units 05:20 WBC 7.9 (4.8-10.8) X10*3/uL Hgb 8.6 L (14.0-18.0) g/dl Hct 27.4 L (42.0-52.0) % Plt Count 237 (160-400) X10*3/uL BMP 07/04/23 05:20 Sodium 133 L Potassium 3.6 Chloride 101 Carbon Dioxide 23 BUN 19 H Creatinine 1.05 Calcium 8.7 D Microbiology Microbiology Results: Microbiology 07/03/23 16:34 Blood - Venous Blood Culture - Preliminary No growth after 24 hours. 07/03/23 16:34 Blood - Venous Blood Culture - Preliminary Prelim: GPC Gram Stain only Assessment and Plan (1) Diabetic ulcer of left foot: Status: Acute He has chronic nonhealing area heel with OM so maybe improve with more blood flow to area. MSSA likely bacteremia Plan Continue Vancomycin for now await culture. Likely need six weeks IV antibiotics Revascularization if able. Time Spent With Patient Time: Total time managing care of this patient today ____ minutes.
[2023-07-05] MEDS: Piperacillin Sodium/Tazobactam 4.5 GM in 0.9 % Sodium Chloride 100 ML IV ×4 (03:13→21:18)
[2023-07-05 04:39] VITALS: BP 152/71; PULSE 72; RESP 16; TEMP 36.6; O2SAT 97
[2023-07-05] MEDS: 0.9 % Sodium Chloride 1,000 ML 100 ML IVCONT (05:33)
--- NOTE | 2023-07-05 07:00 | CA_ITS ---
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 Normal LV ejection fraction 55-60% with moderate LVH with impaired relaxation filling pattern 2. Vegetations cannot be ruled out on this study 3. Severe mitral calcification with normal cardiac valvular Dopplers Findings Procedure Information The quality of the study was technically difficult. The study quality is limited by patients body habitus. The patient declines contrast. Left Ventricle Normal left ventricular size and systolic function. There is moderately increased left ventricular wall thickness. The visually estimated ejection fraction is between 55-60%. Regional wall motion abnormalities can not be excluded due to suboptimal endocardial definition. Spectral Doppler is indicative of an impaired relaxation filling pattern. E/E prime ratio is between 8 and 15 consistent with indeterminate filling pressures. Right Ventricle The right ventricle was not well visualized. Atria The left atrium is mildly dilated. Interatrial shunt cannot be excluded. The right atrium was not well visualized. Aortic Valve The aortic valve was not well visualized. There is no aortic valve stenosis. There is no aortic valve regurgitation. Mitral Valve The mitral valve was not well visualized. There is severe posterior mitral leaflet thickening. There is severe mitral annular calcification. There is trace mitral valve regurgitation. There is no mitral valve stenosis. Pulmonic Valve The pulmonic valve was not well visualized. Tricuspid Valve The tricuspid valve was not well visualized. Tricuspid regurgitation envelope is inadequate for calculation of right ventricular systolic pressure. Great Vessels The aorta was not well visualized. The pulmonary artery was not well visualized. Venous The inferior vena cava was not well visualized. Pericardium/Pleural The pericardium was not well visualized. Prior Study Comparison No significant change compared to prior study dated: 11/15/2022. Measurements 2D Linear Measurements IVSd: 1.53 0.6-0.9/0.6-1.0 cm LVIDd: 5.61 3.9-5.3/4.2-5.9 cm LVIDd Index: 2.21 2.4-3.2/2.2-3.1 cm/m2 LVIDs: 4.13 2.0-3.6 cm LVPWd: 1.54 0.7-1.1 cm LA Diam: 4.90 2.7-3.8/3.0-4.0 cm LAIDs Index: 1.93 1.5-2.3 cm/m2 LV Mass: 496.51 67-162/88-224 g LV Mass Index: 195.48 43-95/49-115 g/m2 LVOT Diam: 2.40 3.0+(-)1.3 cm Mitral Valve MV VTI: 0.41 MV Pk James: 1.11 MV Mn James: 0.80 MV Pk Grad: 5.00 MV Mn Grad: 3.00 MV Pk E: 0.99 MV PK A: 1.00 MV Decel Time: 266.00 E/A: 1.00 E'Lateral: 5.87 E'Medial: 5.98 E/E' Med: 16.50 E/E' Lat: 16.80 PHT: 78.00 MVA PHT: 2.82 MVA Continuity: 2.67 Decel [place]: 3.70 Aortic Valve AoV Pk James: 1.52 AoV Pk Grad: 9.00 BEATRICE: 3.53 LVOT LVOT Pk James: 1.18 LVOT Mn James: 0.84 LVOT VTI: 0.24 LVOT Pk Grad: 6.00 LVOT Mn Grad: 3.00 LVOT Diam: 2.40 LVOT Area: 4.52 Diastolic Function MV Pk E: 0.99 MV Pk A: 1.00 E/A: 1.00 E'Medial: 5.98 E/E' Med: 16.50 E' Laterial: 5.87 E/E' Lat: 16.80 Right Ventricle TAPSE (mm): 15.80 TVS' James: 10.30 Tricuspid Valve RA Press: 3.00 Great Vessels Aorta Sinus of Valsalva: 3.50 2.0-3.5 cm Pulmonary Valve PV Pk James: 1.26 Peak PV Grad: 6.00 Updated in Other Vendor System with Status of Final Christiano Bass MD electronically signed on 07/05/2023 4:21:34 PM with status of Final
[2023-07-05 07:05] VITALS: BP 159/74; PULSE 65; RESP 18; TEMP 36.1; O2SAT 98
[2023-07-05 07:41] LABS: Glucose, Whole Blood 116 mg/dL (60-115)
[2023-07-05] MEDS: amLODIPine Besylate 2.5 MG TABLET PO (08:43)
[2023-07-05] MEDS: lisinopriL 2.5 MG TABLET PO (08:43)
[2023-07-05] MEDS: Metoprolol Succinate ER 50 MG TAB.ER.24H PO (08:43)
[2023-07-05] MEDS: 0.9 % Sodium Chloride Flush 3 ML SYRINGE IVFLUSH ×3 (08:43→19:35)
[2023-07-05] MEDS: Atorvastatin Calcium 20 MG TABLET PO (08:43)
[2023-07-05] MEDS: Insulin Glargine,Hum.rec.anlog 100 UNIT/ML 10 ML VIAL 60 UNIT SUBCUT ×2 (08:43→21:18)
[2023-07-05] MEDS: vancomycin HCL 1,000 MG in 0.9 % Sodium Chloride 250 ML 270 MG IV ×2 (09:42→19:34)
[2023-07-05 09:53] LABS: INTERNATIONAL NORM RATIO 1.1 (0.9-1.1); Prothrombin Time 13.7 SEC (11.1-13.3)
[2023-07-05 11:06] LABS: Glucose, Whole Blood 177 mg/dL (60-115)
[2023-07-05] MEDS: Insulin Lispro 100 UNIT/ML 3 ML VIAL SUBCUT ×3 (11:55→21:18)
--- NOTE | 2023-07-05 13:08 | P.PNIM_ITS ---
Subjective Subjective Date of Service: 07/05/23 Interval History: no fever 2/2 BCx positive for GPCs in clusters refused vancomycin this morning, stating ID doc Dr Vincent at [facility] said it would not work in him now accepting vancomycin was supposed to get angiogram this morning but machine is broken until at least 07/09 Review of Systems Review of Systems: Yes all other systems are reviewed and are negative Physical Exam 2 Vital Signs: Vital Signs: Last Vital Signs Temp 96.9 F 07/05/23 07:05 Pulse 65 07/05/23 07:05 Resp 18 07/05/23 07:05 BP 159/74 H 07/05/23 07:05 Pulse Ox 98 07/05/23 07:05 O2 Del Method Room Air 07/05/23 07:05 BMI result Body Mass Index 32.2 Gen: in no acute distress HEENT: sclera anicteric, moist mucus membranes Neck: supple Lungs: clear to auscultation bilaterally Heart: regular rate and rhythm, no murmurs Abd: soft, non-tender, non-distended Ext: no edema Skin: 2 cm L heel pressure ulcer Neuro: alert and oriented x3, no focal findings Psych: appropriate affect Objective Data Active Medications Acetaminophen (Acetaminophen 325 Mg Tablet) 650 mg PO Q6H PRN PRN Reason: Pain, Mild (Pain Scale 1-3) Last Admin: 07/03/23 20:06 Dose: 650 mg Documented By: TUCKER Amlodipine Besylate (Amlodipine Besylate 2.5 Mg Tablet) 2.5 mg PO DAILY [facility]; Protocol Last Admin: 07/05/23 08:43 Dose: 2.5 mg Documented By: ERIN Atorvastatin Calcium (Atorvastatin Calcium 20 Mg Tablet) 20 mg PO DAILY [facility] Last Admin: 07/05/23 08:43 Dose: 20 mg Documented By: ERIN Dextrose (Dextrose 50 % 25 Gm/50 Ml Syringe) 25 gm IVPUSH Q15M PRN; Protocol PRN Reason: per Hypoglycemia Standing Ord. Enoxaparin Sodium (Enoxaparin Sodium 40 Mg/0.4 Ml Syringe) 40 mg SUBCUT Q24H [facility] Last Admin: 07/04/23 19:53 Dose: 40 mg Documented By: SYORALTata Gabapentin (Gabapentin 300 Mg Capsule) 600 mg PO BID@0800,1700 [facility] Gabapentin (Gabapentin 400 Mg Capsule) 800 mg PO BEDTIME [facility] Glucose (Glucose Gel 15 Gm Gel..Gram.) 15 gm PO Q15M PRN; Protocol PRN Reason: per Hypoglycemia Standing Ord. Piperacillin Sod/Tazobactam (Sod 4.5 gm/ Sodium Chloride) 100 mls @ 200 mls/hr IV Q6H [facility] Last Infusion: 07/05/23 09:17 Dose: Infused Documented By: ERIN Vancomycin HCl 1,000 mg/ (Sodium Chloride) 270 mls @ 270 mls/hr IV Q12H [facility] Last Infusion: 07/05/23 11:31 Dose: Infused Documented By: ERIN Sodium Chloride (Ns) 1,000 mls @ 100 mls/hr IVCONT .Q10H [facility] Last Admin: 07/05/23 05:33 Dose: 100 mls/hr Documented By: DARRON Insulin Glargine (Insulin Glargine,Hum.Rec.Anlog 100 Unit/Ml 10 Ml Vial) 60 unit SUBCUT BID [facility] Last Admin: 07/05/23 08:43 Dose: 60 unit Documented By: ERIN Insulin Human Lispro (Insulin Lispro 100 Unit/Ml 3 Ml Vial) 0 unit SUBCUT QIDACHS [facility]; Protocol Last Admin: 07/05/23 11:55 Dose: 5 unit Documented By: ERIN Lisinopril (Lisinopril 2.5 Mg Tablet) 2.5 mg PO DAILY [facility]; Protocol Last Admin: 07/05/23 08:43 Dose: 2.5 mg Documented By: ERIN Melatonin (Melatonin 3 Mg Tablet) 6 mg PO BEDTIME PRN PRN Reason: Insomnia Metoprolol Succinate (Metoprolol Succinate Er 50 Mg Tab.Er.24h) 50 mg PO DAILY [facility]; Protocol Last Admin: 07/05/23 08:43 Dose: 50 mg Documented By: ERIN Ondansetron HCl (Ondansetron Hcl 4 Mg/2 Ml Vial) 4 mg IVPUSH Q8H PRN PRN Reason: Nausea and Vomiting Oxycodone HCl (Oxycodone Hcl Immed Release 5 Mg Tablet) 5 mg PO Q4H PRN PRN Reason: Pain, Severe (Pain Scale 7-10) Pharmacy Consult (Consult Rx Vancomycin Dosing) 1 each MISCELLANE DAILY PRN PRN Reason: Consult order Sodium Chloride (0.9 % Sodium Chloride Flush 3 Ml Syringe) 3 ml IVFLUSH QSHIFT [facility] Last Admin: 07/05/23 08:43 Dose: 3 ml Documented By: ERIN Labs 07/04/23 05:20 07/04/23 05:20 Labs: Laboratory Results - last 24 hr 07/04/23 07/04/23 07/04/23 15:56 18:19 20:09 Hold Purple Top PT INR APTT POC Glucose 271 H 238 H Random Vancomycin 10.3 L 07/05/23 07/05/23 07/05/23 07:10 09:09 11:02 Hold Purple Top SEE NOTE PT 13.7 H INR 1.1 APTT 29.0 POC Glucose 116 H 177 H Random Vancomycin Microbiology Microbiology Results: Microbiology 07/03/23 16:34 Blood Culture - Preliminary Blood - Venous Staphylococcus aureus 07/03/23 16:34 Blood Culture - Preliminary Blood - Venous Prelim: GPC Gram Stain only Assessment and Plan (1) Diabetic osteomyelitis: Status: Acute Plan d3 67yo F with PAD, DM2, chronic L heel pressure ulcer, HTN, hx of MSSA bacteremia + osteomyelitis presenting with nonhealing L heel diabetic ulcer, admitted for suspected osteomyelitis found to have staphylococcal bacteremia acute DM osteomyelitis L heel with Staphylococcus bacteremia DM ulcer PAD - IV vanc + pip-florencia d3, repeat BCx tonight, check TTE, will need PICC line once BCx clear - Vascular Surgery consulted, due to equipment malfunction, deferring angiography to outpatient - Wound Care: Left Medial Foot and Heel Etiology: Diabetic / Arterial Wounds - Known Osteomylitis Measurements: Left Medial foot 1cm x 1cm x 5cm, Probes to bone with seropurulent drainage no odor noted - unable to visalize wound bed Left Heel 4.2cm x 3.5cm x 1.5cm, unable to visalize central necrotic area of wound bed - dry pale pink wound bed exposed Edges: ? callused and irregular Pema wound: red pink erythema and edematous No Induration, Medial site with Fluctuance, and Erythema, Pulses on left foot not palpable per chart view doppler +, foot overall is cool to touch Pain: denies Goals of Treatment: ? Continue to follow with Dr. Rivera and Outpt wound clinic - topical recommendations for packing while inpatient - pt to consider asking for referral of new off loading boot - per his statement of friction and rubbing 1. Turn and Reposition every 2 hours and as needed for patient comfort consider use of wedges available in the storeroom. 2. Off Load all bony prominences with use of pillows, wedges and heel boots. 3. Monitor for incontinence and moisture control. 4. Provide adequate and supplemental nutrition. 5. Order or Continue low air loss mattress. 6. Maintain blood glucose levels per Providers orders. 7. Left Foot - Off Load Pressure - Medial Site - Cleanse and irrigate with NS, pack with 1/4in Iodoform packing strip be sure to leave a wick for easy removal, cover with dry gauze. Heel Site: Cleanse with NS, pack and apply Durafiber AG to wound bed cover with Dry gauze, wrap with gauze and change daily. DM2 with hyperglycemia - out of insulin for a week, continue basal-bolus insulin, A1c 7.7 HLD - continue atorvastatin HTN - continue amlodipine, metoprolol succinate, lisinopril VTE ppx - LMWH dispo - TBD In my clinical judgment, the patient requires continued inpatient hospitalization for the following reasons: OR, IV ABX Time Spent With Patient Time: Total time managing care of this patient today ____ minutes. Quality Stroke Does the patient have a stroke diagnosis?: No VTE Prior VTE?: No VTE Risk Level:: Medical - moderate - high VTE Device Contraindication: Treatment Not Indicated VTE Drug Contraindication: N/A - Med Ordered
--- NOTE | 2023-07-05 13:26 | HO.SKINPHOTO ---
Location:Left Medail Foot Category: Stage: Length: Width: Depth: cm Location: Left Heel Category: Stage: Length: Width: Depth: cm
--- NOTE | 2023-07-05 13:28 | HO.WOUND ---
Wound Consult: Initial 67yr old male admitted to [facility] on?07/03/23 19:48- See progress notes and H&P for detailed history. Left Medial Foot and Heel Etiology: Diabetic / Arterial Wounds - Known Osteomylitis Measurements: Left Medial foot 1cm x 1cm x 5cm, Probes to bone with seropurulent drainage no odor noted - unable to visalize wound bed Left Heel 4.2cm x 3.5cm x 1.5cm, unable to visalize central necrotic area of wound bed - dry pale pink wound bed exposed Edges: ? callused and irregular Pema wound: red pink erythema and edematous No Induration, Medial site with Fluctuance, and Erythema, Pulses on left foot not palpable per chart view doppler +, foot overall is cool to touch Pain: denies Goals of Treatment: ? Continue to follow with Dr. Rivera and Outpt wound clinic - topical recommendations for packing while inpatient - pt to consider asking for referral of new off loading boot - per his statement of friction and rubbing Recommendations: 1. Turn and Reposition every 2 hours and as needed for patient comfort consider use of wedges available in the storeroom. 2. Off Load all bony prominences with use of pillows, wedges and heel boots. 3. Monitor for incontinence and moisture control. 4. Provide adequate and supplemental nutrition. 5. Order or Continue low air loss mattress. 6. Maintain blood glucose levels per Providers orders. 7. Left Foot - Off Load Pressure - Medial Site - Cleanse and irrigate with NS, pack with 1/4in Iodoform packing strip be sure to leave a wick for easy removal, cover with dry gauze. Heel Site: Cleanse with NS, pack and apply Durafiber AG to wound bed cover with Dry gauze, wrap with gauze and change daily. Re-consult wound care Nurse for wound deterioration
[2023-07-05 14:16] LABS: CDiff Gene PCR POSITIVE (Negative)
[2023-07-05 16:00] VITALS: BP 146/68; PULSE 61; RESP 18; TEMP 37.3; O2SAT 97
[2023-07-05 16:35] LABS: Glucose, Whole Blood 218 mg/dL (60-115)
[2023-07-05] MEDS: Gabapentin 300 MG CAPSULE 600 MG PO (17:47)
[2023-07-05 18:43] LABS: Anion Gap 13 (12-20); Blood Urea Nitrogen 12 mg/dL (9-16); Calcium 8.7 mg/dL (8.4-10.2); Carbon Dioxide 23 mmol/L (22-29); Chloride 105 mmol/L (96-108); Creatinine Clr Calc Pharmacy 114.8; Estimated Glomerular Filt Rate > 60; Glucose Random 260 mg/dL (60-115); Potassium 3.5 mmol/L (3.3-5.1); Sodium 137 mmol/L (135-145); Vancomycin Random 10.3 mcg/mL (15-20)
[2023-07-05 18:46] LABS: Hematocrit 26.6 % (42.0-52.0); Hemoglobin 8.2 g/dl (14.0-18.0); Mean Corpuscular HGB Conc 30.8 g/dl (31.0-36.0); Mean Corpuscular Hemoglobin 25.9 pg (27.0-33.0); Mean Corpuscular Volume 84.2 fL (80.0-98.0); Platelet Count 283 X10*3/uL (160-400); Red Blood Count 3.16 X10*6/uL (4.60-5.80); Red Cell Distribution Width 14.4 % (11.0-16.0); White Blood Count 6.2 X10*3/uL (4.8-10.8)
[2023-07-05] MEDS: Enoxaparin Sodium 40 MG/0.4 ML SYRINGE SUBCUT (19:35)
--- NOTE | 2023-07-05 19:39 | HE.PHANOTE ---
VANCO DOSE ADJUSTMENT BASED ON SCR OF 0.92 AND TROUGH OF 10.3 DOSE CONTINUED AT 1000 Q 12. NEXT TROUGH 07/06 @ 0600
[2023-07-05 19:57] LABS: Glucose, Whole Blood 236 mg/dL (60-115)
[2023-07-05] MEDS: Gabapentin 400 MG CAPSULE 800 MG PO (21:19)
[2023-07-05 23:43] VITALS: BP 156/70; PULSE 65; RESP 18; TEMP 36.7; O2SAT 98
[2023-07-06] MEDS: Piperacillin Sodium/Tazobactam 4.5 GM in 0.9 % Sodium Chloride 100 ML IV ×4 (03:04→21:09)
[2023-07-06 03:44] VITALS: BP 134/62; PULSE 68; RESP 18; TEMP 36.7; O2SAT 97
[2023-07-06 06:31] LABS: Vancomycin Random 9.6 mcg/mL (15-20)
[2023-07-06 06:33] LABS: Creatinine Clr Calc Pharmacy 125.7; Estimated Glomerular Filt Rate > 60
--- NOTE | 2023-07-06 06:40 | HE.PHANOTE ---
Addendum entered by Kiana Godoy RPh 07/06/23 09:37: Kindra retimed due to zosyn infusion so next trough is due 07/07 @1999 Original Note: RE: kindra Patient's trough on 07/06 came back at9.6; increased dose to 1250mg Q12H with predicted AUC of 409 mg/L, trough of 12.7. Next level to be drawn after 3 doses, 07/07 @1800
[2023-07-06 07:21] VITALS: BP 158/67; PULSE 68; RESP 20; TEMP 36.6; O2SAT 97
[2023-07-06 07:36] LABS: Glucose, Whole Blood 213 mg/dL (60-115)
[2023-07-06] MEDS: Gabapentin 300 MG CAPSULE 600 MG PO ×2 (08:26→17:08)
[2023-07-06] MEDS: Metoprolol Succinate ER 50 MG TAB.ER.24H PO (08:27)
[2023-07-06] MEDS: lisinopriL 2.5 MG TABLET PO (08:27)
[2023-07-06] MEDS: Insulin Lispro 100 UNIT/ML 3 ML VIAL SUBCUT ×4 (08:27→21:10)
[2023-07-06] MEDS: Atorvastatin Calcium 20 MG TABLET PO (08:27)
[2023-07-06] MEDS: amLODIPine Besylate 2.5 MG TABLET PO (08:27)
[2023-07-06] MEDS: 0.9 % Sodium Chloride Flush 3 ML SYRINGE IVFLUSH ×3 (08:28→21:11)
[2023-07-06] MEDS: Insulin Glargine,Hum.rec.anlog 100 UNIT/ML 10 ML VIAL 60 UNIT SUBCUT ×2 (08:36→21:11)
[2023-07-06] MEDS: vancomycin HCL 1,250 MG in 0.9 % Sodium Chloride 250 ML 166.67 MG IV ×2 (09:57→22:15)
--- NOTE | 2023-07-06 10:47 | P.PNVS_ITS ---
Subjective Subjective Date of Service: 07/06/23 Patient reports: no new complaints and feels better Interval history: Patient seen examined. Has nonhealing left lower extremity foot ulcer. No events over the past day or 2. Has often been difficult with the staff and has refused blood draws. Now for follow-up. Physical Exam Vital Signs: Vital Signs: Last Vital Signs Temp 97.8 F 07/06/23 07:21 Pulse 68 07/06/23 07:21 Resp 20 07/06/23 07:21 BP 158/67 H 07/06/23 07:21 Pulse Ox 97 07/06/23 07:21 O2 Del Method Room Air 07/06/23 07:21 BMI result Body Mass Index 32.2 Const: General: cooperative, healthy appearing and no acute distress Orientation/consciousness: oriented to person, oriented to place and oriented to time HEENT: Head: Yes normal to inspection Neck: Carotids: no bruits Chest: Chest palpation & inspection: normal inspection of the chest Resp: Effort & Inspection: normal respiratory effort and able to speak in complete sentences Auscultation: clear to auscultation bilaterally Cardio: Rate: regular rate Heart sounds: S1 normal heart sound present and S2 normal heart sound present GI: Inspection: Yes normal to inspection Skin: Other: Left foot heel pressure ulcer General skin exam: no rashes or lesions noted Wounds: no wounds Neuro: General: oriented to person, oriented to place, oriented to time and CN's II-XI intact bilaterally Extrem: General: Yes normal to inspection, Yes full ROM and Yes no clubbing, cyanosis or edema Psych: Appearance: grossly normal and well kempt Speech and movement: Normal speech and movement present Affect: normal affect Progress Note: A&P Assessment and plan (1) PAD (peripheral artery disease): Status: Acute Assessment and Plan: In short patient has a nonhealing heel ulcer. In addition he is bacteremic. He is currently being treated by antibiotics. Will require long time arm IV antibiotics and is waiting a PICC line. Unfortunately I do think he would benefit from angiogram with possible intervention to obtain the best in line fl ow possible. He was actually scheduled for yesterday and the angio suite was down. His leg is currently stable. Should he be in-hospital until next week we would be able to treat him then if he has discharge he can be treated as an outpatient as well. We will continue to monitor his status with you. Thank you for allowing us to assist in his care. If there are questions or concerns please do not hesitate to contact us. Time Spent With Patient Time: Total time managing care of this patient today ____ minutes. Procedures Date of Service Date of Service: 07/06/23 Quality Stroke Does the patient have a stroke diagnosis?: No VTE Prior VTE?: No VTE Risk Level:: Medical - moderate - high VTE Device Contraindication: Treatment Not Indicated VTE Drug Contraindication: N/A - Med Ordered
[2023-07-06 11:11] LABS: Glucose, Whole Blood 255 mg/dL (60-115)
--- NOTE | 2023-07-06 11:12 | MHC.CM.PN ---
Per MD rounds no discharge planned until Sunday. Dr Rivera plans to perform a procedure on Sunday. DP is home with LT IV ABX. A referrals has been sent to [facility]. [facility] will resume services. A clinical update has been sent. DP home with IV ABX. Patient will need assist with transportation.
--- NOTE | 2023-07-06 11:30 | P.PNIM_ITS ---
Subjective Subjective Date of Service: 07/06/23 Interval History: accepting vancomycin now no fever c/o diarrhea Review of Systems Review of Systems: Yes all other systems are reviewed and are negative Physical Exam 2 Vital Signs: Vital Signs: Last Vital Signs Temp 97.8 F 07/06/23 07:21 Pulse 68 07/06/23 07:21 Resp 20 07/06/23 07:21 BP 158/67 H 07/06/23 07:21 Pulse Ox 97 07/06/23 07:21 O2 Del Method Room Air 07/06/23 07:21 BMI result Body Mass Index 32.2 Gen: in no acute distress HEENT: sclera anicteric, moist mucus membranes Neck: supple Lungs: clear to auscultation bilaterally Heart: regular rate and rhythm, no murmurs Abd: soft, non-tender, non-distended Ext: no edema Skin: 2 cm L heel pressure ulcer Neuro: alert and oriented x3, no focal findings Psych: appropriate affect Objective Data Active Medications Acetaminophen (Acetaminophen 325 Mg Tablet) 650 mg PO Q6H PRN PRN Reason: Pain, Mild (Pain Scale 1-3) Last Admin: 07/03/23 20:06 Dose: 650 mg Documented By: TUCKER Amlodipine Besylate (Amlodipine Besylate 2.5 Mg Tablet) 2.5 mg PO DAILY [facility]; Protocol Last Admin: 07/06/23 08:27 Dose: 2.5 mg Documented By: MARSHA Atorvastatin Calcium (Atorvastatin Calcium 20 Mg Tablet) 20 mg PO DAILY [facility] Last Admin: 07/06/23 08:27 Dose: 20 mg Documented By: MARSHA Dextrose (Dextrose 50 % 25 Gm/50 Ml Syringe) 25 gm IVPUSH Q15M PRN; Protocol PRN Reason: per Hypoglycemia Standing Ord. Enoxaparin Sodium (Enoxaparin Sodium 40 Mg/0.4 Ml Syringe) 40 mg SUBCUT Q24H [facility] Last Admin: 07/05/23 19:35 Dose: 40 mg Documented By: DARRON Gabapentin (Gabapentin 300 Mg Capsule) 600 mg PO BID@0800,1700 [facility] Last Admin: 07/06/23 08:26 Dose: 600 mg Documented By: MARSHA Gabapentin (Gabapentin 400 Mg Capsule) 800 mg PO BEDTIME [facility] Last Admin: 07/05/23 21:19 Dose: 800 mg Documented By: DARRON Glucose (Glucose Gel 15 Gm Gel..Gram.) 15 gm PO Q15M PRN; Protocol PRN Reason: per Hypoglycemia Standing Ord. Piperacillin Sod/Tazobactam (Sod 4.5 gm/ Sodium Chloride) 100 mls @ 200 mls/hr IV Q6H [facility] Last Infusion: 07/06/23 09:41 Dose: Infused Documented By: MARSHA Vancomycin HCl 1,250 mg/ (Sodium Chloride) 250 mls @ 166.667 mls/hr IV Q12H [facility] Last Admin: 07/06/23 09:57 Dose: 166.67 mls/hr Documented By: MATTHEW Insulin Glargine (Insulin Glargine,Hum.Rec.Anlog 100 Unit/Ml 10 Ml Vial) 60 unit SUBCUT BID [facility] Last Admin: 07/06/23 08:36 Dose: 60 unit Documented By: MARSHA Insulin Human Lispro (Insulin Lispro 100 Unit/Ml 3 Ml Vial) 0 unit SUBCUT QIDACHS [facility]; Protocol Last Admin: 07/06/23 08:27 Dose: 8 unit Documented By: MARSHA Lisinopril (Lisinopril 2.5 Mg Tablet) 2.5 mg PO DAILY [facility]; Protocol Last Admin: 07/06/23 08:27 Dose: 2.5 mg Documented By: MARSHA Melatonin (Melatonin 3 Mg Tablet) 6 mg PO BEDTIME PRN PRN Reason: Insomnia Metoprolol Succinate (Metoprolol Succinate Er 50 Mg Tab.Er.24h) 50 mg PO DAILY [facility]; Protocol Last Admin: 07/06/23 08:27 Dose: 50 mg Documented By: MARSHA Ondansetron HCl (Ondansetron Hcl 4 Mg/2 Ml Vial) 4 mg IVPUSH Q8H PRN PRN Reason: Nausea and Vomiting Oxycodone HCl (Oxycodone Hcl Immed Release 5 Mg Tablet) 5 mg PO Q4H PRN PRN Reason: Pain, Severe (Pain Scale 7-10) Pharmacy Consult (Consult Rx Vancomycin Dosing) 1 each MISCELLANE DAILY PRN PRN Reason: Consult order Sodium Chloride (0.9 % Sodium Chloride Flush 3 Ml Syringe) 3 ml IVFLUSH QSHIFT [facility] Last Admin: 07/06/23 08:28 Dose: 3 ml Documented By: MARSHA Labs 07/05/23 18:09 07/06/23 06:01 Labs: Laboratory Results - last 24 hr 07/05/23 07/05/23 07/05/23 13:10 16:20 18:09 MCV 84.2 MCH 25.9 L MCHC 30.8 L RDW 14.4 Plt Count 283 MPV 10.0 Absolute Nucleated RBC 0.000 Nucleated RBC % (auto) 0.0 Hold Purple Top Anion Gap 13 Estim Creat Clear Calc 114.8 Estimated GFR > 60 POC Glucose 218 H Random Glucose 260 H Calcium 8.7 Random Vancomycin 10.3 L C. difficile Tox B Gene POSITIVE A* 07/05/23 07/06/23 07/06/23 19:53 06:01 06:13 MCV MCH MCHC RDW Plt Count MPV Absolute Nucleated RBC Nucleated RBC % (auto) Hold Purple Top SEE NOTE Anion Gap Estim Creat Clear Calc 125.7 Estimated GFR > 60 POC Glucose 236 H Random Glucose Calcium Random Vancomycin 9.6 L C. difficile Tox B Gene 07/06/23 07/06/23 07:23 11:04 MCV MCH MCHC RDW Plt Count MPV Absolute Nucleated RBC Nucleated RBC % (auto) Hold Purple Top Anion Gap Estim Creat Clear Calc Estimated GFR POC Glucose 213 H 255 H Random Glucose Calcium Random Vancomycin C. difficile Tox B Gene Microbiology Microbiology Results: Microbiology 07/03/23 16:34 Blood Culture - Final Blood - Venous Methicillin Res Staph Aureus 07/03/23 16:34 Blood Culture - Final Blood - Venous Methicillin Res Staph Aureus Assessment and Plan (1) Diabetic osteomyelitis: Status: Acute Plan d4 67yo F with PAD, DM2, chronic L heel pressure ulcer, HTN, hx of MSSA bacteremia + osteomyelitis presenting with nonhealing L heel diabetic ulcer, admitted for suspected osteomyelitis found to have MRSA bacteremia acute DM osteomyelitis L heel with MRSA bacteremia DM ulcer PAD - IV vanc 07/02-, d/c pip-florencia 07/02-07/05, surveillance BCx from 07/05 pending, will need PICC line once BCx clear - TTE 07/05/23: 1. Normal LV ejection fraction 55-60% with moderate LVH with impaired relaxation filling pattern 2. Vegetations cannot be ruled out on this study 3. Severe mitral calcification with normal cardiac valvular Dopplers - Vascular Surgery consulted, due to equipment malfunction, angiogram will be 07/10/23 - Wound Care: Left Medial Foot and Heel Etiology: Diabetic / Arterial Wounds - Known Osteomylitis Measurements: Left Medial foot 1cm x 1cm x 5cm, Probes to bone with seropurulent drainage no odor noted - unable to visalize wound bed Left Heel 4.2cm x 3.5cm x 1.5cm, unable to visalize central necrotic area of wound bed - dry pale pink wound bed exposed Edges: ? callused and irregular Pema wound: red pink erythema and edematous No Induration, Medial site with Fluctuance, and Erythema, Pulses on left foot not palpable per chart view doppler +, foot overall is cool to touch Pain: denies Goals of Treatment: ? Continue to follow with Dr. Rivera and Outpt wound clinic - topical recommendations for packing while inpatient - pt to consider asking for referral of new off loading boot - per his statement of friction and rubbing 1. Turn and Reposition every 2 hours and as needed for patient comfort consider use of wedges available in the storeroom. 2. Off Load all bony prominences with use of pillows, wedges and heel boots. 3. Monitor for incontinence and moisture control. 4. Provide adequate and supplemental nutrition. 5. Order or Continue low air loss mattress. 6. Maintain blood glucose levels per Providers orders. 7. Left Foot - Off Load Pressure - Medial Site - Cleanse and irrigate with NS, pack with 1/4in Iodoform packing strip be sure to leave a wick for easy removal, cover with dry gauze. Heel Site: Cleanse with NS, pack and apply Durafiber AG to wound bed cover with Dry gauze, wrap with gauze and change daily. diarrhea - Cdiff PCR positive, toxin studies pending DM2 with hyperglycemia - out of insulin for a week, continue basal-bolus insulin, A1c 7.7 HLD - continue atorvastatin HTN - continue amlodipine, metoprolol succinate, lisinopril VTE ppx - LMWH dispo - anticipate home with VNA once has PICC line and vascular intervention In my clinical judgment, the patient requires continued inpatient hospitalization for the following reasons: OR, IV ABX Time Spent With Patient Time: Total time managing care of this patient today ___45_ minutes. Quality Stroke Does the patient have a stroke diagnosis?: No VTE Prior VTE?: No VTE Risk Level:: Medical - moderate - high VTE Device Contraindication: Treatment Not Indicated VTE Drug Contraindication: N/A - Med Ordered
[2023-07-06 12:00] VITALS: BP 152/66; PULSE 68; RESP 18; O2SAT 98
[2023-07-06 13:20] VITALS: BP 146/65; PULSE 77; RESP 18; TEMP 37.5; O2SAT 98
[2023-07-06 14:02] LABS: CDIFF Internal ctrl Dots and bkg OK (V); CDiff Toxin Negative (Negative)
[2023-07-06 15:10] LABS: Glucose, Whole Blood 201 mg/dL (60-115)
[2023-07-06 16:00] VITALS: BP 144/67; PULSE 65; RESP 18; TEMP 36.7; O2SAT 97
[2023-07-06 16:05] LABS: Glucose, Whole Blood 197 mg/dL (60-115)
--- NOTE | 2023-07-06 16:10 | P.PNID_ITS ---
Subjective Subjective Date of Service: 07/06/23 Critical Care Time (minutes): 15 Comment: he has MRSA bacteremia 07/03 He has no complaints except left foot still leaking serous fluid. He is scheduled Sunday for arterial surgery Dr Rivera. Objective Data Labs 07/05/23 18:09 07/06/23 06:01 Labs: Laboratory Results - last 24 hr 07/05/23 07/05/23 07/05/23 13:10 16:20 18:09 WBC 6.2 RBC 3.16 L Hgb 8.2 L Hct 26.6 L MCV 84.2 MCH 25.9 L MCHC 30.8 L RDW 14.4 Plt Count 283 MPV 10.0 Absolute Nucleated RBC 0.000 Nucleated RBC % (auto) 0.0 Hold Purple Top Sodium 137 Potassium 3.5 Chloride 105 Carbon Dioxide 23 Anion Gap 13 BUN 12 Creatinine 0.92 Estim Creat Clear Calc 114.8 Estimated GFR > 60 POC Glucose 218 H Random Glucose 260 H Calcium 8.7 Random Vancomycin 10.3 L C. difficile Toxin A&B Negative C. difficile Interpret SEE NOTE 07/05/23 07/06/23 07/06/23 19:53 06:01 06:13 WBC RBC Hgb Hct MCV MCH MCHC RDW Plt Count MPV Absolute Nucleated RBC Nucleated RBC % (auto) Hold Purple Top SEE NOTE Sodium Potassium Chloride Carbon Dioxide Anion Gap BUN Creatinine 0.84 Estim Creat Clear Calc 125.7 Estimated GFR > 60 POC Glucose 236 H Random Glucose Calcium Random Vancomycin 9.6 L C. difficile Toxin A&B C. difficile Interpret 07/06/23 07/06/23 07/06/23 07:23 11:04 15:06 WBC RBC Hgb Hct MCV MCH MCHC RDW Plt Count MPV Absolute Nucleated RBC Nucleated RBC % (auto) Hold Purple Top Sodium Potassium Chloride Carbon Dioxide Anion Gap BUN Creatinine Estim Creat Clear Calc Estimated GFR POC Glucose 213 H 255 H 201 H Random Glucose Calcium Random Vancomycin C. difficile Toxin A&B C. difficile Interpret 07/06/23 15:56 WBC RBC Hgb Hct MCV MCH MCHC RDW Plt Count MPV Absolute Nucleated RBC Nucleated RBC % (auto) Hold Purple Top Sodium Potassium Chloride Carbon Dioxide Anion Gap BUN Creatinine Estim Creat Clear Calc Estimated GFR POC Glucose 197 H Random Glucose Calcium Random Vancomycin C. difficile Toxin A&B C. difficile Interpret Microbiology Microbiology Results: Microbiology 07/03/23 16:34 Blood - Venous Blood Culture - Final Methicillin Res Staph Aureus 07/03/23 16:34 Blood - Venous Blood Culture - Final Methicillin Res Staph Aureus Physical Exam 2 Vital Signs: Vital Signs: Last Vital Signs Temp 97.8 F 07/06/23 07:21 Pulse 68 07/06/23 12:00 Resp 18 07/06/23 12:00 BP 152/66 H 07/06/23 12:00 Pulse Ox 98 07/06/23 12:00 O2 Del Method Room Air 07/06/23 12:00 BMI result Body Mass Index 32.2 Const: General: cooperative HEENT: Head: Yes normal to inspection Mouth: Normal oral and palatal mucosa present Resp: Effort & Inspection: normal respiratory effort Cardio: Rate: regular rate Rhythm: regular rhythm Extrem: Other: left foot oozing serous liquid plantar Assessment and Plan Assessment and plan (1) MRSA bacteremia: Problem details: from foot 6 weeks IV Daptomycin with weekly CK and CBC and then possible po. Echo followup Status: Acute Time Spent With Patient Time: Total time managing care of this patient today ____ minutes.
[2023-07-06 19:58] LABS: Glucose, Whole Blood 207 mg/dL (60-115)
[2023-07-06 20:00] VITALS: BP 146/65; PULSE 77; RESP 20; TEMP 37.5; O2SAT 98
[2023-07-06] MEDS: Gabapentin 400 MG CAPSULE 800 MG PO (21:11)
[2023-07-06] MEDS: Enoxaparin Sodium 40 MG/0.4 ML SYRINGE SUBCUT (21:11)
--- NOTE | 2023-07-06 21:24 | PC.NURSE ---
Pt A&O, agitated, refused assessment and initially refused scheduled lovenox and insulins this evening, did eventually let engineering writer give them after education. Denies pain. This RN asked engineering writer if he would allow wound care to left foot and pt responded I'm going to think about it . Covering Dr. Harris notified. Will attempt wound care again later in hopes pt will be more agreeable.
[2023-07-07] VITALS (7 sets, daily range): BP systolic 136–161; BP diastolic 63–67; PULSE 67–73; RESP 18–20; TEMP 36.7–37.5; O2SAT 96–97
[2023-07-07] MEDS: Piperacillin Sodium/Tazobactam 4.5 GM in 0.9 % Sodium Chloride 100 ML IV ×2 (03:14→08:33)
--- NOTE | 2023-07-07 04:09 | PC.NURSE ---
Patient continues to be resistant to care, refused second attempt at wound care at 23:00 despite education. Pt playing loud music on his phone overnight despite staff requests to lower volume or pause during interactions and care in order to better hear each other. Pt refusing repositioning. Education provided. Patient accusatory, second staff witness present during remainder of care and interactions; Pt accusatory towards engineering writer during 03:00 hour zosyn administration this morning, stated: It's too early for my antibiotics. You just gave those . Pt refusing to answer orientation questions, instead mimicking/repeating what engineering writer asked. Pt educated on zosyn broad coverage for infection and that is it scheduled every six hours. Pt responded Didn't they tell you antibiotics don't work on me? Hang them out the window . Pt ultimately allowed antibiotic administration and on completing infusion of 03:00 zosyn pt denied ever refusing wound care, agreeable to wound care with witness present. Wound care performed.
[2023-07-07 06:32] LABS: Creatinine Clr Calc Pharmacy 128.8; Estimated Glomerular Filt Rate > 60
[2023-07-07 07:48] LABS: Glucose, Whole Blood 282 mg/dL (60-115)
[2023-07-07] MEDS: lisinopriL 2.5 MG TABLET PO (08:12)
[2023-07-07] MEDS: Metoprolol Succinate ER 50 MG TAB.ER.24H PO (08:12)
[2023-07-07] MEDS: Gabapentin 300 MG CAPSULE 600 MG PO ×2 (08:12→17:07)
[2023-07-07] MEDS: amLODIPine Besylate 2.5 MG TABLET PO (08:12)
[2023-07-07] MEDS: Insulin Lispro 100 UNIT/ML 3 ML VIAL SUBCUT ×4 (08:14→21:01)
[2023-07-07] MEDS: Insulin Glargine,Hum.rec.anlog 100 UNIT/ML 10 ML VIAL 60 UNIT SUBCUT ×2 (08:16→20:50)
[2023-07-07] MEDS: 0.9 % Sodium Chloride Flush 3 ML SYRINGE IVFLUSH ×3 (08:17→20:51)
--- NOTE | 2023-07-07 09:50 | HO.PM.IMPN ---
Subjective Subjective Date of Service: 07/07/23 Interval History: no further diarrhea since 07/05 pain controlled no fever Review of Systems Review of Systems: Yes all other systems are reviewed and are negative Physical Exam Vital Signs: Vital Signs: Last Vital Signs Temp 98.5 F 07/07/23 07:43 Pulse 67 07/07/23 07:43 Resp 18 07/07/23 07:43 BP 153/67 H 07/07/23 07:43 Pulse Ox 96 07/07/23 07:43 O2 Del Method Room Air 07/07/23 07:43 BMI result Body Mass Index 32.2 Gen: in no acute distress HEENT: sclera anicteric, moist mucus membranes Neck: supple Lungs: clear to auscultation bilaterally Heart: regular rate and rhythm, no murmurs Abd: soft, non-tender, non-distended Ext: no edema Skin: 2 cm L heel ulcer Neuro: alert and oriented x3, no focal findings Psych: appropriate affect Objective Data Active Medications Acetaminophen (Acetaminophen 325 Mg Tablet) 650 mg PO Q6H PRN PRN Reason: Pain, Mild (Pain Scale 1-3) Last Admin: 07/03/23 20:06 Dose: 650 mg Documented By: TUCKER Amlodipine Besylate (Amlodipine Besylate 2.5 Mg Tablet) 2.5 mg PO DAILY [facility]; Protocol Last Admin: 07/07/23 08:12 Dose: 2.5 mg Documented By: MERARY Atorvastatin Calcium (Atorvastatin Calcium 20 Mg Tablet) 20 mg PO DAILY [facility] Last Admin: 07/06/23 08:27 Dose: 20 mg Documented By: MARSHA Dextrose (Dextrose 50 % 25 Gm/50 Ml Syringe) 25 gm IVPUSH Q15M PRN; Protocol PRN Reason: per Hypoglycemia Standing Ord. Enoxaparin Sodium (Enoxaparin Sodium 40 Mg/0.4 Ml Syringe) 40 mg SUBCUT Q24H [facility] Last Admin: 07/06/23 21:11 Dose: 40 mg Documented By: RENETTA Gabapentin (Gabapentin 300 Mg Capsule) 600 mg PO BID@0800,1700 [facility] Last Admin: 07/07/23 08:12 Dose: 600 mg Documented By: MERARY Gabapentin (Gabapentin 400 Mg Capsule) 800 mg PO BEDTIME [facility] Last Admin: 07/06/23 21:11 Dose: 800 mg Documented By: REENTTA Glucose (Glucose Gel 15 Gm Gel..Gram.) 15 gm PO Q15M PRN; Protocol PRN Reason: per Hypoglycemia Standing Ord. Piperacillin Sod/Tazobactam (Sod 4.5 gm/ Sodium Chloride) 100 mls @ 200 mls/hr IV Q6H [facility] Last Infusion: 07/07/23 09:03 Dose: Infused Documented By: MERARY Sodium Chloride (Ns) 1,000 mls @ 100 mls/hr IVCONT .Q10H [facility] Daptomycin 822 mg/ Sodium (Chloride) 66.44 mls @ 132.88 mls/hr IV Q24H [facility] Last Admin: 07/07/23 09:15 Dose: 132.88 mls/hr Documented By: MERARY Insulin Glargine (Insulin Glargine,Hum.Rec.Anlog 100 Unit/Ml 10 Ml Vial) 60 unit SUBCUT BID [facility] Last Admin: 07/07/23 08:16 Dose: 60 unit Documented By: MERARY Insulin Human Lispro (Insulin Lispro 100 Unit/Ml 3 Ml Vial) 0 unit SUBCUT QIDACHS [facility]; Protocol Last Admin: 07/07/23 08:14 Dose: 12 unit Documented By: MERARY Lisinopril (Lisinopril 2.5 Mg Tablet) 2.5 mg PO DAILY [facility]; Protocol Last Admin: 07/07/23 08:12 Dose: 2.5 mg Documented By: MERARY Melatonin (Melatonin 3 Mg Tablet) 6 mg PO BEDTIME PRN PRN Reason: Insomnia Metoprolol Succinate (Metoprolol Succinate Er 50 Mg Tab.Er.24h) 50 mg PO DAILY [facility]; Protocol Last Admin: 07/07/23 08:12 Dose: 50 mg Documented By: MERARY Ondansetron HCl (Ondansetron Hcl 4 Mg/2 Ml Vial) 4 mg IVPUSH Q8H PRN PRN Reason: Nausea and Vomiting Oxycodone HCl (Oxycodone Hcl Immed Release 5 Mg Tablet) 5 mg PO Q4H PRN PRN Reason: Pain, Severe (Pain Scale 7-10) Sodium Chloride (0.9 % Sodium Chloride Flush 3 Ml Syringe) 3 ml IVFLUSH QSHIFT [facility] Last Admin: 07/07/23 08:17 Dose: 3 ml Documented By: MERARY Labs 07/05/23 18:09 07/07/23 Unknown Labs: Laboratory Results - last 24 hr 07/05/23 07/06/23 07/06/23 13:10 11:04 15:06 Hold Purple Top Estim Creat Clear Calc Estimated GFR POC Glucose 255 H 201 H Total Creatine Kinase C. difficile Toxin A&B Negative C. difficile Interpret SEE NOTE 07/06/23 07/06/23 07/07/23 15:56 19:52 05:20 Hold Purple Top SEE NOTE Estim Creat Clear Calc Estimated GFR POC Glucose 197 H 207 H Total Creatine Kinase C. difficile Toxin A&B C. difficile Interpret 07/07/23 07/07/23 07:41 Unknown Hold Purple Top Estim Creat Clear Calc 128.8 Estimated GFR > 60 POC Glucose 282 H Total Creatine Kinase 10 L C. difficile Toxin A&B C. difficile Interpret Microbiology Microbiology Results: Microbiology 07/05/23 18:09 Blood Culture - Preliminary Blood - Venous No growth after 24 hours. 07/05/23 18:09 Blood Culture - Preliminary Blood - Venous No growth after 24 hours. 07/03/23 16:34 Blood Culture - Final Blood - Venous Methicillin Res Staph Aureus 07/03/23 16:34 Blood Culture - Final Blood - Venous Methicillin Res Staph Aureus Assessment and Plan (1) Diabetic osteomyelitis: Status: Acute Plan d5 67yo F with PAD, DM2, chronic L heel pressure ulcer, HTN, hx of MSSA bacteremia + osteomyelitis presenting with nonhealing L heel diabetic ulcer, admitted for suspected osteomyelitis found to have MRSA bacteremia acute DM osteomyelitis L heel with MRSA bacteremia DM ulcer PAD - IV vanc 07/02-07/07, change to daptomycin today [07/07], will need PICC line once BCx from 07/05, total 6 wk from 1st negative culture; weekly CBCd+ CPK while on daptomycin - TTE 07/05/23: 1. Normal LV ejection fraction 55-60% with moderate LVH with impaired relaxation filling pattern 2. Vegetations cannot be ruled out on this study 3. Severe mitral calcification with normal cardiac valvular Dopplers - Vascular Surgery consulted, angiography 07/09/23 planned, NPO after midnight 07/09 - Wound Care consulted: Left Medial Foot and Heel Etiology: Diabetic / Arterial Wounds - Known Osteomylitis Measurements: Left Medial foot 1cm x 1cm x 5cm, Probes to bone with seropurulent drainage no odor noted - unable to visalize wound bed Left Heel 4.2cm x 3.5cm x 1.5cm, unable to visalize central necrotic area of wound bed - dry pale pink wound bed exposed Edges: ? callused and irregular Pema wound: red pink erythema and edematous No Induration, Medial site with Fluctuance, and Erythema, Pulses on left foot not palpable per chart view doppler +, foot overall is cool to touch Pain: denies Goals of Treatment: ? Continue to follow with Dr. Rivera and Outpt wound clinic - topical recommendations for packing while inpatient - pt to consider asking for referral of new off loading boot - per his statement of friction and rubbing 1. Turn and Reposition every 2 hours and as needed for patient comfort consider use of wedges available in the storeroom. 2. Off Load all bony prominences with use of pillows, wedges and heel boots. 3. Monitor for incontinence and moisture control. 4. Provide adequate and supplemental nutrition. 5. Order or Continue low air loss mattress. 6. Maintain blood glucose levels per Providers orders. 7. Left Foot - Off Load Pressure - Medial Site - Cleanse and irrigate with NS, pack with 1/4in Iodoform packing strip be sure to leave a wick for easy removal, cover with dry gauze. Heel Site: Cleanse with NS, pack and apply Durafiber AG to wound bed cover with Dry gauze, wrap with gauze and change daily. diarrhea - Cdiff PCR positive, toxin studies negative, likely colonization and diarrhea has resolved DM2 with hyperglycemia - out of insulin for a week, continue basal-bolus insulin, A1c 7.7 HLD - continue atorvastatin HTN - continue amlodipine, metoprolol succinate, lisinopril VTE ppx - LMWH dispo - anticipate home with VNA once has PICC line and vascular intervention In my clinical judgment, the patient requires continued inpatient hospitalization for the following reasons: OR, IV ABX Time Spent With Patient Time: Total time managing care of this patient today __40__ minutes. Quality Stroke Does the patient have a stroke diagnosis?: No VTE Prior VTE?: No VTE Risk Level:: Medical - moderate - high VTE Device Contraindication: Treatment Not Indicated VTE Drug Contraindication: N/A - Med Ordered
[2023-07-07 11:36] LABS: Glucose, Whole Blood 258 mg/dL (60-115)
[2023-07-07] MEDS: Gabapentin 400 MG CAPSULE 800 MG PO (20:50)
[2023-07-07] MEDS: Enoxaparin Sodium 40 MG/0.4 ML SYRINGE SUBCUT (20:50)
--- NOTE | 2023-07-07 21:26 | PC.NURSE ---
2100 blood sugar per pt's blood sugar monitor on left upper arm was 227.8 units lispro insulin given per sliding scale.
[2023-07-08] VITALS (7 sets, daily range): BP systolic 130–158; BP diastolic 55–74; PULSE 66–85; RESP 17–20; TEMP 36–37.1; O2SAT 95–100
[2023-07-08] MEDS: lisinopriL 2.5 MG TABLET PO (08:15)
[2023-07-08] MEDS: Metoprolol Succinate ER 50 MG TAB.ER.24H PO (08:16)
[2023-07-08] MEDS: amLODIPine Besylate 2.5 MG TABLET PO (08:16)
[2023-07-08] MEDS: Gabapentin 300 MG CAPSULE 600 MG PO ×2 (08:16→16:45)
[2023-07-08] MEDS: 0.9 % Sodium Chloride Flush 3 ML SYRINGE IVFLUSH ×3 (08:16→21:49)
[2023-07-08] MEDS: Insulin Lispro 100 UNIT/ML 3 ML VIAL SUBCUT ×4 (08:19→21:49)
[2023-07-08] MEDS: Insulin Glargine,Hum.rec.anlog 100 UNIT/ML 10 ML VIAL 60 UNIT SUBCUT ×2 (08:20→21:49)
--- NOTE | 2023-07-08 09:17 | HO.PM.IMPN ---
Subjective Subjective Date of Service: 07/08/23 Interval History: pain under control no fever Review of Systems Review of Systems: Yes all other systems are reviewed and are negative Physical Exam Vital Signs: Vital Signs: Last Vital Signs Temp 98.3 F 07/08/23 07:45 Pulse 68 07/08/23 07:45 Resp 18 07/08/23 07:45 BP 158/74 H 07/08/23 07:45 Pulse Ox 96 07/08/23 07:45 O2 Del Method Room Air 07/08/23 07:45 BMI result Body Mass Index 32.2 Gen: in no acute distress HEENT: sclera anicteric, moist mucus membranes Neck: supple Lungs: clear to auscultation bilaterally Heart: regular rate and rhythm, no murmurs Abd: soft, non-tender, non-distended Ext: no edema Skin: 4 cm L heel ulcer Neuro: alert and oriented x3, no focal findings Psych: appropriate affect Objective Data Active Medications Acetaminophen (Acetaminophen 325 Mg Tablet) 650 mg PO Q6H PRN PRN Reason: Pain, Mild (Pain Scale 1-3) Last Admin: 07/03/23 20:06 Dose: 650 mg Documented By: TUCKER Amlodipine Besylate (Amlodipine Besylate 2.5 Mg Tablet) 2.5 mg PO DAILY [facility]; Protocol Last Admin: 07/08/23 08:16 Dose: 2.5 mg Documented By: MERARY Atorvastatin Calcium (Atorvastatin Calcium 20 Mg Tablet) 20 mg PO DAILY [facility] Last Admin: 07/06/23 08:27 Dose: 20 mg Documented By: MARSHA Dextrose (Dextrose 50 % 25 Gm/50 Ml Syringe) 25 gm IVPUSH Q15M PRN; Protocol PRN Reason: per Hypoglycemia Standing Ord. Enoxaparin Sodium (Enoxaparin Sodium 40 Mg/0.4 Ml Syringe) 40 mg SUBCUT Q24H [facility] Last Admin: 07/07/23 20:50 Dose: 40 mg Documented By: RAFA Gabapentin (Gabapentin 300 Mg Capsule) 600 mg PO BID@0800,1700 [facility] Last Admin: 07/08/23 08:16 Dose: 600 mg Documented By: MERARY Gabapentin (Gabapentin 400 Mg Capsule) 800 mg PO BEDTIME [facility] Last Admin: 07/07/23 20:50 Dose: 800 mg Documented By: HO.ODRISM Glucose (Glucose Gel 15 Gm Gel..Gram.) 15 gm PO Q15M PRN; Protocol PRN Reason: per Hypoglycemia Standing Ord. Sodium Chloride (Ns) 1,000 mls @ 100 mls/hr IVCONT .Q10H [facility] Daptomycin 822 mg/ Sodium (Chloride) 66.44 mls @ 132.88 mls/hr IV Q24H [facility] Last Infusion: 07/08/23 09:04 Dose: Infused Documented By: MERARY Insulin Glargine (Insulin Glargine,Hum.Rec.Anlog 100 Unit/Ml 10 Ml Vial) 60 unit SUBCUT BID [facility] Last Admin: 07/08/23 08:20 Dose: 60 unit Documented By: MERARY Insulin Human Lispro (Insulin Lispro 100 Unit/Ml 3 Ml Vial) 0 unit SUBCUT QIDACHS [facility]; Protocol Last Admin: 07/08/23 08:19 Dose: 5 unit Documented By: MERARY Lisinopril (Lisinopril 2.5 Mg Tablet) 2.5 mg PO DAILY [facility]; Protocol Last Admin: 07/08/23 08:15 Dose: 2.5 mg Documented By: MERARY Melatonin (Melatonin 3 Mg Tablet) 6 mg PO BEDTIME PRN PRN Reason: Insomnia Metoprolol Succinate (Metoprolol Succinate Er 50 Mg Tab.Er.24h) 50 mg PO DAILY [facility]; Protocol Last Admin: 07/08/23 08:16 Dose: 50 mg Documented By: MERARY Ondansetron HCl (Ondansetron Hcl 4 Mg/2 Ml Vial) 4 mg IVPUSH Q8H PRN PRN Reason: Nausea and Vomiting Oxycodone HCl (Oxycodone Hcl Immed Release 5 Mg Tablet) 5 mg PO Q4H PRN PRN Reason: Pain, Severe (Pain Scale 7-10) Sodium Chloride (0.9 % Sodium Chloride Flush 3 Ml Syringe) 3 ml IVFLUSH QSHIFT [facility] Last Admin: 07/08/23 08:16 Dose: 3 ml Documented By: MERARY Labs 07/05/23 18:09 07/07/23 Unknown Labs: Laboratory Results - last 24 hr 07/07/23 11:32 POC Glucose 258 H Microbiology Microbiology Results: Microbiology 07/05/23 18:09 Blood Culture - Preliminary Blood - Venous No growth after 48 hours. 07/05/23 18:09 Blood Culture - Preliminary Blood - Venous No growth after 48 hours. Assessment and Plan (1) Diabetic osteomyelitis: Status: Acute Plan d6 67yo F with PAD, DM2, chronic L heel pressure ulcer, HTN, hx of MSSA bacteremia + osteomyelitis presenting with nonhealing L heel diabetic ulcer, admitted for suspected osteomyelitis found to have MRSA bacteremia + osteomyelitis acute diabetic osteomyelitis L heel with MRSA bacteremia diabetic and vascular ulcer - IV vanc 07/02-07/07, changed to daptomycin 07/07, BCx from 07/05 clear so end date will be 08/15 [6 wk], PICC ordered for tomorrow, weekly CBCd+ CPK while on daptomycin - TTE 07/05/23: 1. Normal LV ejection fraction 55-60% with moderate LVH with impaired relaxation filling pattern 2. Vegetations cannot be ruled out on this study 3. Severe mitral calcification with normal cardiac valvular Dopplers - Wound Care consulted and will need outpt follow-up at [facility]: Left Medial Foot and Heel Etiology: Diabetic / Arterial Wounds - Known Osteomylitis Measurements: Left Medial foot 1cm x 1cm x 5cm, Probes to bone with seropurulent drainage no odor noted - unable to visalize wound bed Left Heel 4.2cm x 3.5cm x 1.5cm, unable to visalize central necrotic area of wound bed - dry pale pink wound bed exposed Edges: ? callused and irregular Pema wound: red pink erythema and edematous No Induration, Medial site with Fluctuance, and Erythema, Pulses on left foot not palpable per chart view doppler +, foot overall is cool to touch Pain: denies Goals of Treatment: ? Continue to follow with Dr. Rivera and Outpt wound clinic - topical recommendations for packing while inpatient - pt to consider asking for referral of new off loading boot - per his statement of friction and rubbing 1. Turn and Reposition every 2 hours and as needed for patient comfort consider use of wedges available in the storeroom. 2. Off Load all bony prominences with use of pillows, wedges and heel boots. 3. Monitor for incontinence and moisture control. 4. Provide adequate and supplemental nutrition. 5. Order or Continue low air loss mattress. 6. Maintain blood glucose levels per Providers orders. 7. Left Foot - Off Load Pressure - Medial Site - Cleanse and irrigate with NS, pack with 1/4in Iodoform packing strip be sure to leave a wick for easy removal, cover with dry gauze. Heel Site: Cleanse with NS, pack and apply Durafiber AG to wound bed cover with Dry gauze, wrap with gauze and change daily. PAD - Vascular Surgery consulted, angiography 07/09/23 planned, NPO after midnight 07/09 diarrhea - Cdiff PCR positive, toxin studies negative, likely colonization and diarrhea has resolved DM2 with hyperglycemia - out of insulin for a week, continue basal-bolus insulin, A1c 7.7, use blood glucose readings off pt's Dexcom CGM HLD - held atorvastatin due to interaction with daptomycin HTN - continue amlodipine, metoprolol succinate, lisinopril VTE ppx - LMWH dispo - anticipate home with VNA once has PICC line and vascular intervention, probably Sunday In my clinical judgment, the patient requires continued inpatient hospitalization for the following reasons: OR, IV ABX Time Spent With Patient Time: Total time managing care of this patient today __45_ minutes. Quality Stroke Does the patient have a stroke diagnosis?: No VTE Prior VTE?: No VTE Risk Level:: Medical - moderate - high VTE Device Contraindication: Treatment Not Indicated VTE Drug Contraindication: N/A - Med Ordered
[2023-07-08] MEDS: Enoxaparin Sodium 40 MG/0.4 ML SYRINGE SUBCUT (21:48)
[2023-07-08] MEDS: Gabapentin 400 MG CAPSULE 800 MG PO (21:48)
[2023-07-09] VITALS (7 sets, daily range): BP systolic 137–192; BP diastolic 63–86; PULSE 75–83; RESP 16–20; TEMP 36.7–37.1; O2SAT 95–97
[2023-07-09] MEDS: 0.9 % Sodium Chloride 1,000 ML 100 ML IVCONT (05:43)
[2023-07-09 07:04] LABS: Hematocrit 26.3 % (42.0-52.0); Hemoglobin 8.2 g/dl (14.0-18.0); Mean Corpuscular HGB Conc 31.2 g/dl (31.0-36.0); Mean Corpuscular Hemoglobin 26.5 pg (27.0-33.0); Mean Corpuscular Volume 85.1 fL (80.0-98.0); Mean Platelet Volume 9.6 fL (9.4-12.4); Platelet Count 227 X10*3/uL (160-400); Red Blood Count 3.09 X10*6/uL (4.60-5.80); Red Cell Distribution Width 14.3 % (11.0-16.0); White Blood Count 4.5 X10*3/uL (4.8-10.8)
[2023-07-09 07:19] LABS: Anion Gap 10 (12-20); Blood Urea Nitrogen 12 mg/dL (9-16); Calcium 8.7 mg/dL (8.4-10.2); Carbon Dioxide 28 mmol/L (22-29); Chloride 104 mmol/L (96-108); Creatinine Clr Calc Pharmacy 130.4; Estimated Glomerular Filt Rate > 60; Glucose Random 249 mg/dL (60-115); Potassium 3.4 mmol/L (3.3-5.1); Sodium 139 mmol/L (135-145)
[2023-07-09 07:30] LABS: Glucose, Whole Blood 236 mg/dL (60-115)
[2023-07-09 07:40] LABS: Erythrocyte Sedimentation Rate 121 MM/HR (0-15)
--- NOTE | 2023-07-09 09:44 | W.PM.OPN ---
Operative Note Operative Note Date of Service: 07/09/23 Narrative: Angiogram report from [facility] Preoperative diagnosis: Atherosclerosis of left lower extremity with nonhealing ulcer Postoperative diagnosis: Same Procedure: 1. Ultrasound-guided right common femoral access 2. Aortogram with bilateral lower extremity runoff Surgeon:Junior Rivera M.D., FACS, RPVI Business Intelligence Engineer:None Anesthesia: Local with moderate conscious sedation. Total intraservice moderate sedation time was 27 minutes. I monitored the patient's level of consciousness and physiologic status continuously throughout the procedure. Specimens:none Drains:none Estimated blood loss: Less than 10 ml Implant: None Indications: 67-year-old diabetic gentleman with a known history of Charcot foot presents for endovascular intervention. He had noninvasive arterial testing which was concerning for below-knee disease. He now presents for intervention. The patient has signed the informed consent after reviewing risks, complications, benefits, and alternatives previously discussed with the patient. The patient was given the opportunity to ask any additional questions or voice any concerns. All questions were answered to the patient's satisfaction. Procedure in detail: Patient was brought to the angiography suite prior to which a time-out was called for patient identification and site verification. Bilateral groins were prepped and draped in the standard surgical fashion. Under ultrasound guidance right common femoral was punctured with micro puncture needle and wire. Subsequently a precision 4 Algerian sheath was then placed. Bentson wire was advanced to the level of the aorta. 4 Algerian Flush catheter was brought up and parked at the level of the renal arteries. Aortogram was then undertaken. Catheter was brought down to the level of the iliac bifurcation. Iliacs were subsequently imaged. Catheter was then brought in up and over to the left side SFA. Runoff study was then undertaken. No intervention was indicated catheter was removed and through the 4 Algerian sheath right lower extremity runoff was undertaken. Once this was accomplished sheath was removed and 10 minutes direct pressure was held. Patient tolerated the procedure well. Returned to recovery with stable vitals. Interpretation of films: 1. Ultrasound demonstrates appropriate femoral puncture. Image of which was saved. 2. Aortogram demonstrates appropriate caliber aorta. Minimal disease. Appropriate take-off of the renals. 3. Iliac images demonstrate no significant disease 4. Left Leg Common femoral artery: No significant disease Profundus Femoris: No significant disease Superficial femoral artery: No significant disease Popliteal artery (p1,p2,p3): No significant disease Anterior tibial artery: Good runoff all the way to the level of the foot Peroneal artery: Diminutive and goes to the ankle Posterior tibial artery: Good runoff all the way to the level of the foot Dorsalis pedis/plantar arch: Almost complete 5. Right Leg Common femoral artery: No significant disease Profundus Femoris: No significant disease Superficial femoral artery: No significant disease Popliteal artery (p1,p2,p3): No significant disease Anterior tibial artery: Good runoff all the way to the level of the foot Peroneal artery: Good flow all the way to the foot Posterior tibial artery: Good runoff all the way to the level of the foot Dorsalis pedis/plantar arch: Incomplete Conclusion: 1. Successful diagnostic angiogram with no intervention indicated 2. Anticoagulation status: No change This note is constructed using voice recognition software. While every effort has been made to ensure accuracy, acid maker errors may have been included. Thank you for allowing me to participate in the care of your patient. Yours sincerely, Junior Rivera MD, FACS, R.P.V.I.
[2023-07-09] MEDS: Metoprolol Succinate ER 50 MG TAB.ER.24H PO (10:21)
[2023-07-09] MEDS: Gabapentin 300 MG CAPSULE 600 MG PO ×2 (10:21→16:58)
[2023-07-09] MEDS: amLODIPine Besylate 2.5 MG TABLET PO (10:21)
[2023-07-09] MEDS: Insulin Glargine,Hum.rec.anlog 100 UNIT/ML 10 ML VIAL 60 UNIT SUBCUT ×2 (10:22→20:10)
[2023-07-09] MEDS: lisinopriL 2.5 MG TABLET PO (10:22)
[2023-07-09] MEDS: 0.9 % Sodium Chloride Flush 3 ML SYRINGE IVFLUSH (10:24)
[2023-07-09] MEDS: Insulin Lispro 100 UNIT/ML 3 ML VIAL SUBCUT ×4 (10:28→20:09)
--- NOTE | 2023-07-09 15:05 | MHC.CM.PN ---
pt is agreeable to str for iv antibiotics referrals made
--- NOTE | 2023-07-09 16:38 | P.PNIM_ITS ---
Subjective Subjective Date of Service: 07/09/23 Interval History: Being followed for MRSA pneumonia, tolerating IV antibiotic, underwent angiography by Dr. Rivera noted to have good blood flow, offers no acute complaints, has good pain control blood sugars elevated due to noncompliance with diabetic diet, no fevers no chills, tolerating diet no nausea no vomiting no abdominal pain. Review of Systems All other system reviewed and negative. Physical Exam 2 Vital Signs: Vital Signs: Last Vital Signs Temp 98.7 F 07/09/23 15:30 Pulse 83 07/09/23 15:30 Resp 20 07/09/23 15:30 BP 137/71 07/09/23 16:24 Pulse Ox 96 07/09/23 15:30 O2 Del Method Room Air 07/09/23 15:30 BMI result Body Mass Index 32.2 Const: Other: Gen: Awake alert x3 in no acute distress HEENT: sclera anicteric, moist mucus membranes Neck: supple Lungs: clear to auscultation bilaterally Heart: regular rate and rhythm, no murmurs Abd: soft, non-tender, non-distended, bowel sounds audible Ext: no edema Skin: 4 cm L heel ulcer, dressing in place. Neuro: alert and oriented x3, no focal findings Psych: appropriate affect Objective Data Active Medications Acetaminophen (Acetaminophen 325 Mg Tablet) 650 mg PO Q6H PRN PRN Reason: Pain, Mild (Pain Scale 1-3) Last Admin: 07/03/23 20:06 Dose: 650 mg Documented By: TUCKER Amlodipine Besylate (Amlodipine Besylate 2.5 Mg Tablet) 2.5 mg PO DAILY COUNTS INCLUDE 234 BEDS AT THE [facility]; Protocol Last Admin: 07/09/23 10:21 Dose: 2.5 mg Documented By: MARSHA Atorvastatin Calcium (Atorvastatin Calcium 20 Mg Tablet) 20 mg PO DAILY COUNTS INCLUDE 234 BEDS AT THE [facility] Last Admin: 07/06/23 08:27 Dose: 20 mg Documented By: MARSHA Dextrose (Dextrose 50 % 25 Gm/50 Ml Syringe) 25 gm IVPUSH Q15M PRN; Protocol PRN Reason: per Hypoglycemia Standing Ord. Enoxaparin Sodium (Enoxaparin Sodium 40 Mg/0.4 Ml Syringe) 40 mg SUBCUT Q24H COUNTS INCLUDE 234 BEDS AT THE [facility] Last Admin: 07/08/23 21:48 Dose: 40 mg Documented By: NITA Gabapentin (Gabapentin 300 Mg Capsule) 600 mg PO BID@0800,1700 COUNTS INCLUDE 234 BEDS AT THE [facility] Last Admin: 07/09/23 10:21 Dose: 600 mg Documented By: MARSHA Gabapentin (Gabapentin 400 Mg Capsule) 800 mg PO BEDTIME COUNTS INCLUDE 234 BEDS AT THE [facility] Last Admin: 07/08/23 21:48 Dose: 800 mg Documented By: NITA Glucose (Glucose Gel 15 Gm Gel..Gram.) 15 gm PO Q15M PRN; Protocol PRN Reason: per Hypoglycemia Standing Ord. Daptomycin 822 mg/ Sodium (Chloride) 66.44 mls @ 132.88 mls/hr IV Q24H COUNTS INCLUDE 234 BEDS AT THE [facility] Last Infusion: 07/09/23 11:13 Dose: Infused Documented By: MARSHA Insulin Glargine (Insulin Glargine,Hum.Rec.Anlog 100 Unit/Ml 10 Ml Vial) 60 unit SUBCUT BID COUNTS INCLUDE 234 BEDS AT THE [facility] Last Admin: 07/09/23 10:22 Dose: 1 unit Documented By: MARSHA Insulin Human Lispro (Insulin Lispro 100 Unit/Ml 3 Ml Vial) 0 unit SUBCUT QIDACHS COUNTS INCLUDE 234 BEDS AT THE [facility]; Protocol Last Admin: 07/09/23 11:55 Dose: 12 unit Documented By: MARSHA Comments: 280 per pt's meter Lisinopril (Lisinopril 2.5 Mg Tablet) 2.5 mg PO DAILY COUNTS INCLUDE 234 BEDS AT THE [facility]; Protocol Last Admin: 07/09/23 10:22 Dose: 2.5 mg Documented By: MARSHA Melatonin (Melatonin 3 Mg Tablet) 6 mg PO BEDTIME PRN PRN Reason: Insomnia Metoprolol Succinate (Metoprolol Succinate Er 50 Mg Tab.Er.24h) 50 mg PO DAILY COUNTS INCLUDE 234 BEDS AT THE [facility]; Protocol Last Admin: 07/09/23 10:21 Dose: 50 mg Documented By: MARSHA Ondansetron HCl (Ondansetron Hcl 4 Mg/2 Ml Vial) 4 mg IVPUSH Q8H PRN PRN Reason: Nausea and Vomiting Oxycodone HCl (Oxycodone Hcl Immed Release 5 Mg Tablet) 5 mg PO Q4H PRN PRN Reason: Pain, Severe (Pain Scale 7-10) Sodium Chloride (0.9 % Sodium Chloride Flush 3 Ml Syringe) 3 ml IVFLUSH QSHIFT COUNTS INCLUDE 234 BEDS AT THE [facility] Last Admin: 07/09/23 15:08 Dose: Not Given Documented By: MARSHA Non-Admin Reason: Previously Administered Labs 07/09/23 05:53 07/09/23 05:53 Labs: Laboratory Results - last 24 hr 07/09/23 07/09/23 05:53 07:14 MCV 85.1 MCH 26.5 L MCHC 31.2 RDW 14.3 Plt Count 227 MPV 9.6 Absolute Nucleated RBC 0.000 Nucleated RBC % (auto) 0.0 ESR 121 H Anion Gap 10 L Estim Creat Clear Calc 130.4 Estimated GFR > 60 POC Glucose 236 H Random Glucose 249 H Calcium 8.7 Total Creatine Kinase 12 L C-Reactive Protein 9.70 H Assessment and Plan (1) MRSA bacteremia: Status: Acute Plan 67yo F with PAD, DM2, chronic L heel pressure ulcer, HTN, hx of MSSA bacteremia + osteomyelitis presenting with nonhealing L heel diabetic ulcer, admitted for suspected osteomyelitis found to have MRSA bacteremia + osteomyelitis # 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 Normal LV ejection fraction 55-60% with moderate LVH with impaired relaxation filling pattern 2. Vegetations cannot be ruled out on this study 3. Severe mitral calcification. - Wound Care consulted and will need outpt follow-up at [facility]: Left Medial Foot and Heel Etiology: Diabetic / Arterial Wounds - Known Osteomylitis Measurements: Left Medial foot 1cm x 1cm x 5cm, Probes to bone with seropurulent drainage no odor noted - unable to visalize wound bed Left Heel 4.2cm x 3.5cm x 1.5cm, unable to visalize central necrotic area of wound bed - dry pale pink wound bed exposed Edges: ? callused and irregular Pema wound: red pink erythema and edematous No Induration, Medial site with Fluctuance, and Erythema, Pulses on left foot not palpable per chart view doppler +, foot overall is cool to touch Pain: denies Goals of Treatment: ? Continue to follow with Dr. Rivera and Outpt wound clinic - topical recommendations for packing while inpatient - pt to consider asking for referral of new off loading boot - per his statement of friction and rubbing 1. Turn and Reposition every 2 hours and as needed for patient comfort consider use of wedges available in the storeroom. 2. Off Load all bony prominences with use of pillows, wedges and heel boots. 3. Monitor for incontinence and moisture control. 4. Provide adequate and supplemental nutrition. 5. Order or Continue low air loss mattress. 6. Maintain blood glucose levels per Providers orders. 7. Left Foot - Off Load Pressure - Medial Site - Cleanse and irrigate with NS, pack with 1/4in Iodoform packing strip be sure to leave a wick for easy removal, cover with dry gauze. Heel Site: Cleanse with NS, pack and apply Durafiber AG to wound bed cover with Dry gauze, wrap with gauze and change daily. #PAD, underwent left lower extremity Angiography due to nonhealing ulcer left foot ulcer, and noted to have good flow blood flow therefore no surgical intervention planned # diarrhea - Cdiff PCR positive, toxin studies negative, likely colonization and diarrhea has resolved # DM2 with hyperglycemia - out of insulin for a week, continue basal-bolus insulin, A1c 7.7, use blood glucose readings off pt's Dexcom CGM # HLD - atorvastatin on hold due to interaction with daptomycin HTN - stable blood pressure, continue amlodipine, metoprolol succinate, lisinopril VTE ppx - LMWH dispo - anticipate home with VNA after PICC line placement In my clinical judgment, the patient requires continued inpatient hospitalization for the following reasons: IV ABX and PICC line placement Time Spent With Patient Time: Total time managing care of this patient today ____ minutes. Quality Stroke Does the patient have a stroke diagnosis?: No VTE Prior VTE?: No VTE Risk Level:: Medical - moderate - high VTE Device Contraindication: Treatment Not Indicated VTE Drug Contraindication: N/A - Med Ordered
[2023-07-09] MEDS: Gabapentin 400 MG CAPSULE 800 MG PO (20:10)
[2023-07-09] MEDS: Enoxaparin Sodium 40 MG/0.4 ML SYRINGE SUBCUT (20:10)
[2023-07-10] VITALS: BP 161/65; PULSE 77; RESP 18; TEMP 36.5; O2SAT 97
[2023-07-10 07:28] VITALS: BP 146/67; PULSE 75; RESP 18; TEMP 36.7; O2SAT 96
[2023-07-10] MEDS: lisinopriL 2.5 MG TABLET PO (07:51)
[2023-07-10] MEDS: Insulin Lispro 100 UNIT/ML 3 ML VIAL SUBCUT ×4 (07:51→21:41)
[2023-07-10] MEDS: amLODIPine Besylate 2.5 MG TABLET PO (07:52)
[2023-07-10] MEDS: Gabapentin 300 MG CAPSULE 600 MG PO ×2 (07:52→16:54)
[2023-07-10] MEDS: Metoprolol Succinate ER 50 MG TAB.ER.24H PO (07:52)
[2023-07-10] MEDS: 0.9 % Sodium Chloride Flush 3 ML SYRINGE IVFLUSH ×2 (07:52→16:52)
[2023-07-10] MEDS: Insulin Glargine,Hum.rec.anlog 100 UNIT/ML 10 ML VIAL 60 UNIT SUBCUT ×2 (08:45→21:40)
--- NOTE | 2023-07-10 10:49 | PM.DS ---
DS: Providers Provider Date of Service: 07/11/23 Date of admission: 07/03/23 19:48 Primary care physician: Corby Little MD Consults: 07/03/23 20:35 Consult to Vascular Surgery Routine Consulting Provider: [facility] Reason for consultation: chronic diabetic foot ulcer with suspected osteo 07/04/23 08:45 Consult to Infectious Diseases Routine Consulting Provider: [facility] Reason for consultation: acute oste Consult to Wound Care Routine Reason for consultation: heel ulcer 07/04/23 11:40 Consult to Wound Care Routine Reason for consultation: heel ulcer Has provider been notified: Yes DS: Diagnosis Discharge Diagnosis (1) MRSA bacteremia: Status: Acute DS: Summary Hospital Course Hospital Course: History of presenting illness: Date of Service: 07/03/23 Attending physician on admission: Kassandra Harris Chief Complaint: hyperglycemia, foot ulcer/pain 67-year-old male with history of peripheral artery disease, uncontrolled insulin-dependent type 2 diabetes, chronic non pressure ulcer of the left foot, lymphedema, hypertension, history of substance use disorder, history osteomyelitis, history of MSSA bacteremia presented to the ED at the recommendation of his health promotion specialist due to hyperglycemia. The patient reports he has not had any insulin in the last week as his PCP reportedly would not fill this. His glucometer was reading >600 in he was symptomatic with polydipsia and polyuria. He is reporting increased pain in left heel over the last few days that is significantly limiting his ability to ambulate. Uses a walker at baseline. He has a chronic ulcer of the left foot and follows with the wound clinic once weekly, Podiatry, and vascular surgery. He denies any purulent drainage. No fevers or chills. On arrival, vital stable. No leukocytosis. Renal function normal, electrolyte levels normal except for sodium 131, chloride 95, anion gap closed. Glucose on arrival 528 improved to 398 with 5 units regular insulin and 10 units Humalog. Lactic acid 1.7. AST 48, ALT 59, alkaline phosphatase 124. CRP 27.01, ESR 104. X-ray of the left foot shows extensive arterial vascular calcifications soft tissue swelling about the foot as well as soft tissue swelling about the heel with an apparent defect. There is also cortical defects in the inferior calcaneus since some apparent lucencies projecting along the calcaneus, bony involvement considered. He has been empirically treated with IV vancomycin and Zosyn and 1L IVNS. Hospital course: 67yo F with PAD, DM2, chronic L heel pressure ulcer, HTN, hx of MSSA bacteremia + osteomyelitis presented with nonhealing L heel diabetic ulcer, admitted for suspected osteomyelitis found to have MRSA bacteremia + osteomyelitis left heel, treated with IV vanc 07/02-07/07, changed to daptomycin 07/07, BCx from 07/05 clear so end date will be 08/15 [6 wk], PICC line placed recommend weekly CBCd+ CPK while on daptomycin,underwent left lower extremity Angiography due to nonhealing ulcer left foot ulcer, and noted to have good flow blood flow therefore no surgical intervention planned by Dr. Rivera. Recommend offloading boot left foot. Wound Care consulted and they recommend outpt follow-up [place] [facility] [place], patient wound measurements are Left Medial foot 1cm x 1cm x 5cm, Probes to bone with seropurulent drainage no odor noted - unable to visalize wound bed Left Heel 4.2cm x 3.5cm x 1.5cm, unable to visalize central necrotic area of wound bed - dry pale pink wound bed exposed Edges: ? callused and irregular Pema wound: red pink erythema and edematous No Induration, Medial site with Fluctuance, and Erythema, Pulses on left foot not palpable, doppler +, foot overall is cool to touch Goals of Treatment: Continue to follow with Dr. Rivera and Outpt wound care clinic upon dc from rehab. 1. Turn and Reposition every 2 hours and as needed for patient comfort consider use of wedges available in the storeroom. 2. Off Load all bony prominences with use of pillows, wedges and heel boots. 3. Monitor for incontinence and moisture control. 4. Provide adequate and supplemental nutrition. 5. low air loss mattress. 6. Maintain good blood glucose levels 7. Left Foot - Off Load Pressure - Medial Site - Cleanse and irrigate with NS, pack with 1/4in Iodoform packing strip be sure to leave a wick for easy removal, cover with dry gauze. Heel Site: Cleanse with NS, pack and apply Durafiber AG to wound bed cover with Dry gauze, wrap with gauze and change daily. transthoracic echocardiogram 07/05/23: Showed 1. Normal LV ejection fraction 55-60% with moderate LVH with impaired relaxation filling pattern 2. Vegetations cannot be ruled out on this study 3. Severe mitral calcification. # diarrhea - Cdiff PCR positive, toxin studies negative, likely colonization and diarrhea has resolved. # DM2 with hyperglycemia - out of insulin for a week, continue basal-bolus insulin, A1c 7.7, use blood glucose readings off pt's Dexcom CGM. # HLD hold atorvastatin due to interaction with daptomycin, resume 08/16. # HTN - stable blood pressure, continue amlodipine, metoprolol succinate,and lisinopril. Time Spent with Patient Time attestation: Total time managing care of this patient today ____ minutes. Discharge coordination time: Greater than 30 minutes Quality: Safe Use of Opioids Does Pt have an Active Cancer Diagnosis on the Problem List?: No Quality: Stroke Does the patient have a stroke diagnosis?: No Physical Exam Vital Signs: Vital Signs: Last Vital Signs Temp 98.1 F 07/10/23 07:28 Pulse 75 07/10/23 07:28 Resp 18 07/10/23 07:28 BP 146/67 H 07/10/23 07:28 Pulse Ox 96 07/10/23 07:28 O2 Del Method Room Air 07/10/23 07:28 BMI result Body Mass Index 32.2 Const: Other: Gen: Awake alert x3 in no acute distress HEENT: sclera anicteric, moist mucus membranes Neck: supple Lungs: clear to auscultation bilaterally Heart: regular rate and rhythm, no murmurs Abd: soft, non-tender, non-distended, bowel sounds audible Ext: no edema Skin: 4 cm L heel ulcer, dressing in place. Neuro: alert and oriented x3, no focal findings Psych: appropriate affect DS: Data Data Completed and Pending Completed studies during hospitalization [Text1]: Procedures Excision of Left Foot Subcutaneous Tissue and Fascia, Open Approach (11/12/22) Excision of Right Foot Subcutaneous Tissue and Fascia, Open Approach (11/12/22) Insertion of Infusion Device into Superior Vena Cava, Percutaneous Approach (11/12/22) Introduction of Remdesivir Anti-infective into Peripheral Vein, Percutaneous Approach, [employer] 5 (10/13/21) Ultrasonography of Superior Vena Cava, Guidance (11/12/22) Labs on day of discharge: Preliminary micro results at discharge 07/05/23 18:09 Blood Culture - Preliminary Blood - Venous No growth after 48 hours. 07/05/23 18:09 Blood Culture - Preliminary Blood - Venous No growth after 48 hours. Discharge Plan Discharge Anticipated Discharge Date/Time: 07/11/23 10:21 Patient Disposition: [facility] [place] Discharge Diagnosis: Acute diabetic osteomyelitis left heel MRSA bacteremia Referrals: Corby Little MD [Primary Care Provider] - 1 Week Discharge Medications: New acetaminophen 325 mg Tablet 650 mg PO Q6H PRN (Reason: Pain, Mild (Pain Scale 1-3)) Qty: 60 0RF gabapentin 400 mg Capsule 800 mg PO BEDTIME Qty: 30 0RF gabapentin 300 mg Capsule 600 mg PO BID@0800,1700 Qty: 60 0RF lisinopril 10 mg tablet 10 mg PO DAILY Qty: 30 0RF oxycodone 5 mg Tablet 5 mg PO Q4H PRN (Reason: Pain, Severe (Pain Scale 7-10)) Qty: 14 0RF Rx Instructions: Partial Fill upon patient request. daptomycin in 0.9 % sod chlor 700 mg/100 mL piggyback 822 mg IV DAILY 36 Days Rx Instructions: administer over 30 mins end date 08/15/23 Continued amlodipine 2.5 mg tablet 1 tab PO DAILY metoprolol succinate 50 mg tablet extended release 24 hr 50 mg PO DAILY insulin glargine [Lantus U-100 Insulin] 100 unit/mL solution 80 unit subcut BID insulin aspart U-100 [Novolog FlexPen U-100 Insulin] 100 unit/mL (3 mL) insulin pen See Protocol subcut QIDACHS Protocol: Insulin Correction Scale Less than or equal to 110 ---- Give (units): 0 111 to 150 Give (units): 0 151 to 200 Give (units): 2 201 to 250 Give (units): 4 251 to 300 Give (units): 6 301 to 350 Give (units): 8 Greater than 350 Give (units): 10 Call MD if Blood Glucose > : 350 Held atorvastatin 20 mg tablet 1 tab PO DAILY Hold Instructions: Resume on 08/16/23. Discontinued hydrochlorothiazide 25 mg tablet 1 tab PO DAILY gabapentin 300 mg capsule 1 cap PO TID lisinopril 2.5 mg tablet 2.5 mg PO DAILY Discharge Orders: Discharge Order (Routine); Ordered 07/11/23 Ordered By: Manohar Garcia Diet: Diabetic diet Activity on Discharge: As tolerated Stand Alone Forms: Patient Portal Discharge page Care Plan Goals: Continue IV daptomycin 822 mg/q24 through August 15 Follow weekly CBC , CPK while on daptomycin. Hold Lipitor while receiving daptomycin Left Foot - Off Load Pressure - Medial Site - Cleanse and irrigate with NS, pack with 1/4in Iodoform packing strip be sure to leave a wick for easy removal, cover with dry gauze. Heel Site: Cleanse with NS, pack and apply Durafiber AG to wound bed cover with Dry gauze, wrap with gauze and change daily. Health Concerns: Diabetes, hypertension, hyperlipidemia strongly recommend to follow low-calorie diet Plan of Treatment: Outpatient follow-up at wound care clinic, call primary care physician follow-up after discharge from rehab. Assessment: As above
[2023-07-10 12:00] VITALS: BP 150/61; PULSE 75; RESP 17; TEMP 36.7; O2SAT 97
--- NOTE | 2023-07-10 15:26 | P.PNIM_ITS ---
Subjective Subjective Date of Service: 07/10/23 Interval History: Offers no acute complaints requesting for left forefoot offloading boot, wishes to be discharged home but mother does not want him home due to MRSA infection patient agreeable to go to rehab, no overnight events, no fevers, no chills, no nausea, no vomiting, no abdominal pain or diarrhea. Review of Systems All other system reviewed and negative. Physical Exam 2 Vital Signs: Vital Signs: Last Vital Signs Temp 98.1 F 07/10/23 12:00 Pulse 75 07/10/23 12:00 Resp 17 07/10/23 12:00 BP 150/61 H 07/10/23 12:00 Pulse Ox 97 07/10/23 12:00 O2 Del Method Room Air 07/10/23 12:00 BMI result Body Mass Index 32.2 Const: Other: Gen: Awake alert x3 in no acute distress HEENT: sclera anicteric, moist mucus membranes Neck: supple Lungs: clear to auscultation bilaterally Heart: regular rate and rhythm, no murmurs Abd: soft, non-tender, non-distended, bowel sounds audible Ext: no edema Skin: 4 cm L heel ulcer, dressing in place. Neuro: alert and oriented x3, no focal findings Psych: appropriate affect Objective Data Active Medications Acetaminophen (Acetaminophen 325 Mg Tablet) 650 mg PO Q6H PRN PRN Reason: Pain, Mild (Pain Scale 1-3) Last Admin: 07/03/23 20:06 Dose: 650 mg Documented By: TUCKER Amlodipine Besylate (Amlodipine Besylate 2.5 Mg Tablet) 2.5 mg PO DAILY [facility]; Protocol Last Admin: 07/10/23 07:52 Dose: 2.5 mg Documented By: MARSHA Atorvastatin Calcium (Atorvastatin Calcium 20 Mg Tablet) 20 mg PO DAILY [facility] Last Admin: 07/06/23 08:27 Dose: 20 mg Documented By: MARSHA Dextrose (Dextrose 50 % 25 Gm/50 Ml Syringe) 25 gm IVPUSH Q15M PRN; Protocol PRN Reason: per Hypoglycemia Standing Ord. Enoxaparin Sodium (Enoxaparin Sodium 40 Mg/0.4 Ml Syringe) 40 mg SUBCUT Q24H [facility] Last Admin: 07/09/23 20:10 Dose: 40 mg Documented By: AGUSTO Gabapentin (Gabapentin 300 Mg Capsule) 600 mg PO BID@0800,1700 [facility] Last Admin: 07/10/23 07:52 Dose: 600 mg Documented By: MARSHA Gabapentin (Gabapentin 400 Mg Capsule) 800 mg PO BEDTIME [facility] Last Admin: 07/09/23 20:10 Dose: 800 mg Documented By: AGUSTO Glucose (Glucose Gel 15 Gm Gel..Gram.) 15 gm PO Q15M PRN; Protocol PRN Reason: per Hypoglycemia Standing Ord. Daptomycin 822 mg/ Sodium (Chloride) 66.44 mls @ 132.88 mls/hr IV Q24H [facility] Last Infusion: 07/10/23 09:28 Dose: Infused Documented By: MARSHA Insulin Glargine (Insulin Glargine,Hum.Rec.Anlog 100 Unit/Ml 10 Ml Vial) 60 unit SUBCUT BID [facility] Last Admin: 07/10/23 08:45 Dose: 60 unit Documented By: MARSHA Insulin Human Lispro (Insulin Lispro 100 Unit/Ml 3 Ml Vial) 0 unit SUBCUT QIDACHS [facility]; Protocol Last Admin: 07/10/23 11:37 Dose: 12 unit Documented By: MARSHA Comments: 258 per pt's monitor Lisinopril (Lisinopril 2.5 Mg Tablet) 2.5 mg PO DAILY [facility]; Protocol Last Admin: 07/10/23 07:51 Dose: 2.5 mg Documented By: MARSHA Melatonin (Melatonin 3 Mg Tablet) 6 mg PO BEDTIME PRN PRN Reason: Insomnia Metoprolol Succinate (Metoprolol Succinate Er 50 Mg Tab.Er.24h) 50 mg PO DAILY [facility]; Protocol Last Admin: 07/10/23 07:52 Dose: 50 mg Documented By: MARSHA Ondansetron HCl (Ondansetron Hcl 4 Mg/2 Ml Vial) 4 mg IVPUSH Q8H PRN PRN Reason: Nausea and Vomiting Oxycodone HCl (Oxycodone Hcl Immed Release 5 Mg Tablet) 5 mg PO Q4H PRN PRN Reason: Pain, Severe (Pain Scale 7-10) Sodium Chloride (0.9 % Sodium Chloride Flush 3 Ml Syringe) 3 ml IVFLUSH QSHIFT [facility] Last Admin: 07/10/23 07:52 Dose: 3 ml Documented By: HO.YOUB Labs 07/09/23 05:53 07/09/23 05:53 Assessment and Plan (1) MRSA bacteremia: Status: Acute Plan 67yo F with PAD, DM2, chronic L heel pressure ulcer, HTN, hx of MSSA bacteremia + osteomyelitis presented with nonhealing L heel diabetic ulcer, admitted for suspected osteomyelitis found to have MRSA bacteremia + osteomyelitis left heel, treated with IV vanc 07/02-07/07, changed to daptomycin 07/07, BCx from 07/05 clear so end date will be 08/15 [6 wk], PICC line placed recommend weekly CBCd+ CPK while on daptomycin,underwent left lower extremity Angiography due to nonhealing ulcer left foot ulcer, and noted to have good flow blood flow therefore no surgical intervention planned by Dr. Rivera. Will arrange offloading boot left foot. Wound Care consulted and they recommend outpt follow-up at [facility] wound care clinic, patient wound measurements are Left Medial foot 1cm x 1cm x 5cm, Probes to bone with seropurulent drainage no odor noted - unable to visalize wound bed Left Heel 4.2cm x 3.5cm x 1.5cm, unable to visalize central necrotic area of wound bed - dry pale pink wound bed exposed Edges: ? callused and irregular Pema wound: red pink erythema and edematous No Induration, Medial site with Fluctuance, and Erythema, Pulses on left foot not palpable, doppler +, foot overall is cool to touch Goals of Treatment: Continue to follow with Dr. Rivera and Outpt wound care clinic upon dc from rehab. 1. Turn and Reposition every 2 hours and as needed for patient comfort consider use of wedges available in the storeroom. 2. Off Load all bony prominences with use of pillows, wedges and heel boots. 3. Monitor for incontinence and moisture control. 4. Provide adequate and supplemental nutrition. 5. low air loss mattress. 6. Maintain good blood glucose levels 7. Left Foot - Off Load Pressure - Medial Site - Cleanse and irrigate with NS, pack with 1/4in Iodoform packing strip be sure to leave a wick for easy removal, cover with dry gauze. Heel Site: Cleanse with NS, pack and apply Durafiber AG to wound bed cover with Dry gauze, wrap with gauze and change daily. transthoracic echocardiogram 07/05/23: Showed 1. Normal LV ejection fraction 55-60% with moderate LVH with impaired relaxation filling pattern 2. Vegetations cannot be ruled out on this study 3. Severe mitral calcification. # diarrhea - Cdiff PCR positive, toxin studies negative, likely colonization and diarrhea has resolved # DM2 with hyperglycemia - out of insulin for a week, continue basal-bolus insulin, A1c 7.7, use blood glucose readings off pt's Dexcom CGM # HLD hold atorvastatin due to interaction with daptomycin, resume 08/16 # HTN - stable blood pressure, continue amlodipine, metoprolol succinate,and lisinopril. VTE ppx - LMWH dispo to rehab facility after PICC line placement, patient's mother does not want him home due to MRSA infection In my clinical judgment, the patient requires continued inpatient hospitalization for the following reasons: IV ABX and PICC line placement Time Spent With Patient Time: Total time managing care of this patient today ____ minutes. Quality Stroke Does the patient have a stroke diagnosis?: No VTE Prior VTE?: No VTE Risk Level:: Medical - moderate - high VTE Device Contraindication: Treatment Not Indicated VTE Drug Contraindication: N/A - Med Ordered
--- NOTE | 2023-07-10 15:55 | HO.PICC ---
PICC Line Insertion NPICC Diagnosis: Osteomyelitis Indication: group home ABT Pertinent Labs: reviewed Technique: Following informed consent including risks, benefits and alternatives and using sterile technique including cap and mask, sterile gown, glove and drape, the right arm was prepped and draped in the usual sterile fashion of full barrier technique with G. Following completion of [place] Protocol the skin and soft tissues were anesthetized with 1% Lidocaine plain. Using ultrasound guidance, right brachial vein access was obtained. Over an 0.018 wire through peel-away sheath, a 4FR single lumen PICC line was positioned. Catheter length is 42cm internal length, 0cm external length, for a total trimmed length of 42cm. The procedure was performed in RM 272. Tip verification was performed by Kody Gilliam with Sherlock 3CG. Tip located in SVC. Ultrasound was used to document vein patency and for needle entry. A formal ultrasound picture and cardiac rhythm strip was recorded. Vascular [employer] has released the line for use and it is currently dressed with a StatLock, Tegaderm, and CHG disc. Verification has been performed for blood return and line patency. Arm Circumference: 31cm Equipment: [employer] SOLO Sherlock 3CG Catheter Type: 4FR single lumen PASV PICCline Lot #: [id number]
[2023-07-10 16:00] VITALS: BP 180/75; PULSE 69; RESP 17; TEMP 36.9; O2SAT 99
[2023-07-10 20:00] VITALS: BP 150/71; PULSE 86; RESP 16; TEMP 36.3; O2SAT 94
--- NOTE | 2023-07-10 21:33 | PC.NURSE ---
Patient reports BS 274 at present using his own device
[2023-07-10] MEDS: Enoxaparin Sodium 40 MG/0.4 ML SYRINGE SUBCUT (21:39)
[2023-07-10] MEDS: Gabapentin 400 MG CAPSULE 800 MG PO (21:40)
[2023-07-10 23:29] VITALS: BP 173/73; PULSE 77; RESP 16; TEMP 36.1; O2SAT 97
[2023-07-11] MEDS: Heparin Sodium,Porcine Flush 50 UNITS/5 ML SYRINGE IVFLUSH ×3 (00:35→16:27)
[2023-07-11] MEDS: 0.9 % Sodium Chloride Flush 3 ML SYRINGE IVFLUSH ×3 (00:37→16:27)
[2023-07-11 07:32] VITALS: BP 143/56; PULSE 83; RESP 17; TEMP 36.3; O2SAT 97
[2023-07-11] MEDS: Insulin Glargine,Hum.rec.anlog 100 UNIT/ML 10 ML VIAL 60 UNIT SUBCUT (08:00)
[2023-07-11] MEDS: amLODIPine Besylate 2.5 MG TABLET PO (08:01)
[2023-07-11] MEDS: Insulin Lispro 100 UNIT/ML 3 ML VIAL SUBCUT ×2 (08:01→11:45)
[2023-07-11] MEDS: lisinopriL 2.5 MG TABLET PO (08:02)
[2023-07-11] MEDS: Gabapentin 300 MG CAPSULE 600 MG PO (08:02)
[2023-07-11] MEDS: Metoprolol Succinate ER 50 MG TAB.ER.24H PO (08:02)
--- NOTE | 2023-07-11 10:28 | MHC.CM.PN ---
Addendum entered by Cecy Bennett 07/11/23 11:47: BLS TRANSPORT VIA [facility] TENTATIVELY BOOKED FOR 1600 HOURS [facility]IA[facility] AWARE Original Note: PER MD ROUNDS, PT CLEARED TO DC TO STR FOR IV ABX [facility] IS OFFERING A BED PICC LINE INSERTION REPORT SENT TO [facility] [facility] PER LAST COMMUNICATION, THEY SUBMITTED FOR AUTH YESTERDAY AWAITING AUTH STATUS UPDATE
[2023-07-11 11:21] VITALS: BP 154/68; PULSE 67; RESP 17; TEMP 36.9; O2SAT 95
--- NOTE | 2023-08-20 16:33 | P.CDIM_ITS ---
PROVIDER RESPONSE TEXT: To clarify, the appropriate diagnosis supported by the clinical indicators: unspecified stage QUERY TEXT: PHYSICIAN'S DOCUMENTATION REQUEST Date of Query: 07/23/2023 07:53 AM EST Patient Name: Paul Vo Admit Date: 07/03/2023 Dear Manohar Garcia, A review of the medical record indicates additional documentation may be needed. Please review below and update the documentation accordingly. Clinical Indicators: Per wound consult 07/05/23: Left Heel 4.2cm x 3.5cm x 1.5cm, unable to visualize central necrotic area of wound bed Based on the above, could you please provide further information regarding the stage of the ulcer/wou nd: stage 1 stage 2 stage 3 stage 4 unstageable unspecified stage Other (explain) Clinically unable to determine (explain) Thank you, Mel Gomez RN Use of terms such as suspected, likely, concern for, or probable (associated with a specific diagnosi s that is being evaluated, monitored, or treated as if it exists) are acceptable and can be coded in the inpatient se tting, when documented at the time of discharge. Please use your independent medical judgment in providing your response. THIS QUERY IS PART OF THE PERMANENT MEDICAL RECORD
== END 2023-07-11 17:03 | disposition skilled nursing facility (03) | DRG 638 ==
LOC: HO.ED 16:39 → HO.EDOVER 19:51 → HO.S3 07-04 09:48
PROVIDERS: Family Medicine; Nurse Practitioner Family; Physician Assistant; Surgery Vascular Surgery; Admitting Provider Student in an Organized Health Care Education/Training Program; Emergency Provider Internal Medicine; PCP Internal Medicine; Visit Provider Hospitalist
PROC: B40D1ZZ Plain Radiography of Aorta and Bilateral Lower Extremity Arteries using Low Osmolar Contrast (ICD-10-PCS; principal; 2023-07-09 08:00)
PROC: 02HV33Z Insertion of Infusion Device into Superior Vena Cava, Percutaneous Approach (ICD-10-PCS; principal; 2023-07-10 15:00)
DX: E11.65 Type 2 diabetes mellitus with hyperglycemia (principal); L97.429 Non-pressure chronic ulcer of left heel and midfoot with unspecified severity; M86.172 Other acute osteomyelitis, left ankle and foot; R18.8 Other ascites; Z66 Do not resuscitate; E11.51 Type 2 diabetes mellitus with diabetic peripheral angiopathy without gangrene; E11.610 Type 2 diabetes mellitus with diabetic neuropathic arthropathy; E78.5 Hyperlipidemia, unspecified; I70.244 Atherosclerosis of native arteries of left leg with ulceration of heel and midfoot; R19.7 Diarrhea, unspecified; B95.62 Methicillin resistant Staphylococcus aureus infection as the cause of diseases classified elsewhere; I34.81 Nonrheumatic mitral (valve) annulus calcification; L89.629 Pressure ulcer of left heel, unspecified stage; Z22.1 Carrier of other intestinal infectious diseases; Z91.119 Patient's noncompliance with dietary regimen due to unspecified reason; E11.69 Type 2 diabetes mellitus with other specified complication; T38.3X6A Underdosing of insulin and oral hypoglycemic [antidiabetic] drugs, initial encounter; I10 Essential (primary) hypertension; Z79.4 Long term (current) use of insulin; Z79.899 Other long term (current) drug therapy
CPT/HCPCS: 36247; 36415; 36573; 73630; 73723; 75630; 76937; 80048; 80053; 80202; 80307; 81001; 82010; 82550; 82565; 82803; 82947; 83036; 83605; 83690; 83735; 85025; 85027; 85610; 85652; 85730; 86140; 87040; 87077; 87186; 87205; 87324; 87493; 93306; 93923; 93926; 99285; A9585; C1751; C1769; C1887; J0878; J1642; J1650; J2543; J3370; J3371; Q9957

== ENCOUNTER 2023-07-03 19:48 | Outpatient (BNV) | payer OTHER, SELFPAY | END 2023-07-05 07:00 | PROVIDERS: Admitting Provider Student in an Organized Health Care Education/Training Program; Emergency Provider Internal Medicine; PCP Internal Medicine; Visit Provider Internal Medicine Cardiovascular Disease | DX: I34.81 Nonrheumatic mitral (valve) annulus calcification (principal) | CPT/HCPCS: 93306 ==

== ENCOUNTER → 2023-07-03 19:48 | Outpatient (BNV) | payer OTHER, SELFPAY | PROVIDERS: Admitting Provider Student in an Organized Health Care Education/Training Program; Emergency Provider Internal Medicine; Visit Provider Surgery Vascular Surgery | DX: I70.244 Atherosclerosis of native arteries of left leg with ulceration of heel and midfoot (principal) | CPT/HCPCS: 36247; 75625; 75716; 76937; 99152; 99222; 99232 ==

== ENCOUNTER → 2023-07-03 19:48 | Outpatient (BNV) | payer OTHER, SELFPAY | PROVIDERS: Admitting Provider Student in an Organized Health Care Education/Training Program; Emergency Provider Internal Medicine; PCP Internal Medicine; Visit Provider Internal Medicine | DX: R78.81 Bacteremia (principal); B95.62 Methicillin resistant Staphylococcus aureus infection as the cause of diseases classified elsewhere | CPT/HCPCS: 99222; 99232 ==

== ENCOUNTER → 2023-07-03 19:48 | Outpatient (BNV) | payer OTHER, SELFPAY | PROVIDERS: Admitting Provider Student in an Organized Health Care Education/Training Program; Emergency Provider Internal Medicine; Visit Provider Physician Assistant | DX: R78.81 Bacteremia (principal); B95.62 Methicillin resistant Staphylococcus aureus infection as the cause of diseases classified elsewhere | CPT/HCPCS: 99223; 99232; 99233; 99239 ==

== ENCOUNTER 2023-07-26 10:33 | Outpatient (AMB) | payer OTHER, SELFPAY ==
--- NOTE | 2023-07-26 10:35 | MHC.OFFVIS ---
Intake Intake Visit Reasons: 2 week follow up Angio 07/09/23 Intake Note: 2 week follow up Left LE Angio 07/09/23 (diagnostic) for Left LE non-healing ulcer. Pt is still at [facility], pt is still there for a few weeks for IV Abx via Picc Line in right arm. Pt has non-healing wound on his heel which has alginate, heel is looking better. Has some holes from external ortho fixtures which were packed with iodoform. See's wound care 1 x per week. States facilty doesnt change dressing daily. Even ran out of ABX few a few days in a row. Accompanied by: Self / Same As Patient Allergies No Known Allergies [No Known Allergies*] Allergy (Verified 07/26/23 10:44) HPI 2 week follow up Angio 07/09/23 HPI Details -pleasant 67-year-old gentleman presents for follow-up regarding nonhealing left lower extremity ulcer. He has a history of Charcot foot. In addition he had an ex fix placed by Podiatry. Since that time he has had nonhealing ulcers and concern of underlying osteomyelitis. He is currently being treated with IV antibiotic therapy he now presents for follow-up status post angiogram. [facility] Medical History (Updated 07/26/23 @ 11:38 by Junior Rivera MD) PAD (peripheral artery disease) MRSA bacteremia DM foot Acute renal failure Hyperkalemia Type 2 diabetes mellitus with foot ulcer Lymphedema Hypertension Substance use disorder Diabetes mellitus Opiate use B12 deficiency anemia Surgical History H/O colonoscopy Social History Household Members: Family Housing: House Do you presently have visiting nurse or other home services: Yes Alcohol intake: never Patient Tobacco Use Status: Never used Tobacco Second Hand Smoke Exposure: No Substance Use Type: Crack/Cocaine and Heroin Advance Directives Date on File: 07/04/23 service: No Current occupational status: disabled Review of Systems Const All systems reviewed & are unremarkable except as noted in HPI and below Reports no additional complaints ENT Reports Normal hearing present Card Denies chest pain, Denies chest pain at rest, Denies chest pain with activity and Denies pedal edema Resp Denies cough GI Denies abdominal pain Musc Denies abnormal gait, Denies muscle cramps and Denies radiating pain into limb Skin/Breast Denies skin ulcer and Denies wounds Neuro Reports Normal hearing present and Denies abnormal gait Psych Reports no additional complaints Physical Exam Const General: cooperative, healthy appearing and comfortable Orientation/consciousness: oriented to person, oriented to place and oriented to time HEENT Head: Yes normal to inspection Neck Neck: Yes normal visual inspection Carotids: no bruits Chest Chest palpation & inspection: normal inspection of the chest Resp Effort & Inspection: normal respiratory effort and able to speak in complete sentences Auscultation: clear to auscultation bilaterally, no crackles, no rales, no rhonchi and no wheezes Cardio Rate: regular rate Rhythm: regular rhythm Heart sounds: S1 normal heart sound present and S2 normal heart sound present Bruits: no carotid bruits Peripheral pulses: Peripheral pulses 2+ throughout GI Inspection: Yes normal to inspection Skin Other: Left leg medial an lateral pin placement open wounds Heel ulcer +2 edema Wounds: no wounds Hair: normal Neuro General: oriented to person, oriented to place and oriented to time Cranial nerves: Yes CN's II-XII intact bilaterally and Yes Normal hearing present Cognition (Neuro): normal cognition Motor exam (neuro): 5/5 motor strength present throughout Extrem Other: venous exam: No significant superficial varicosities or spider telangiectasias, minimal edema General: No clubbing, No cyanosis and No edema Psych Appearance: grossly normal Mental Status: mental status grossly normal Speech and movement: Normal speech and movement present Results Reviewed Results Reviewed: Venous insufficiency testing from 12/27/2022 was negative for any significant reflux. Assessment & Plan Assessment & Plan (1) PAD (peripheral artery disease): Comment: 07/09/2023 - diagnostic angiogram with no intervention Code(s): I73.9 - Peripheral vascular disease, unspecified Plan: Stable from an arterial standpoint heel ulcer (2) Varicose veins of left lower extremity with inflammation: Code(s): I83.12 - Varicose veins of left lower extremity with inflammation Plan: Patient continues to have significant left lower extremity swelling. His testing from [id number] was negative for any significant reflux. It is concerning that that leg is so swollen and I do appreciate superficial varicosities. I have taken the liberty of ordering a repeat left leg venous ultrasound. In addition we did discuss the importance of offloading that foot as much as possible to try to get it to heal up. He will follow up with us after testing. Thank you for allowing us to assist in his care. Orders: Orders US venous duplex LE LT 1 Week I83.12 - Varicose veins of left lower extremity with inflammation Coding Level of Care Code Est Pt Level 4 (60148) Diagnoses PAD (peripheral artery disease) I73.9 Varicose veins of left lower extremity with inflammation I83.12
== END 2023-07-26 10:56 | disposition home or self-care (01) ==
PROVIDERS: PCP Internal Medicine; Visit Provider Surgery Vascular Surgery
DX: I73.9 Peripheral vascular disease, unspecified (principal); I83.12 Varicose veins of left lower extremity with inflammation
CPT/HCPCS: 99213

== ENCOUNTER → 2023-07-26 10:33 | Outpatient (BNVA) | payer OTHER, SELFPAY | PROVIDERS: PCP Internal Medicine; Visit Provider Surgery Vascular Surgery | DX: I83.12 Varicose veins of left lower extremity with inflammation (principal); I73.9 Peripheral vascular disease, unspecified | CPT/HCPCS: 99212 ==

== ENCOUNTER 2023-08-10 11:56 | Inpatient (IN) | payer OTHER, SELFPAY ==
--- NOTE | ~2023-08-10 | US_ITS ---
EXAMINATION: US VENOUS ULTRASOUND WITH DOPPLER LOWER EXTREMITY, LEFT CLINICAL INFORMATION: Left lower extremity pain and swelling. COMPARISON: None available. TECHNIQUE: Ultrasound of the deep veins is performed from the hip to the calf with compression sonography and color and pulse Doppler assessment. Spectral analysis with color-flow imaging is performed. FINDINGS: There is normal venous compression and respiratory variation and augmented flow. The visualized common femoral vein, superficial femoral vein, profunda femoral vein, popliteal vein, and the trifurcation region shows no evidence of deep venous thrombosis. There is no significant popliteal fossa cyst. If the patient's symptoms persist, followup ultrasound in 5 days 7 days might be of value to exclude proximal propagation from a non-visualized calf vein. US/US venous duplex LE LT IMPRESSION: No DVT demonstrated in the left lower extremity.
--- NOTE | ~2023-08-10 | XR_ITS ---
EXAMINATION: XR FOOT, LEFT CLINICAL INFORMATION: Worsening bones. COMPARISON: Left foot 07/03/2023 TECHNIQUE: AP, lateral, and oblique views of the left foot. FINDINGS: There is hallux valgus deformity first digit. There is mild loss of PIP and DIP joints but no bony erosive changes. There is diffuse osteopenia. There is a large calcaneal heel and moderate size retrocalcaneal enthesophytes. There are several lucencies in the calcaneus similar to previous study. There is moderate bimalleolar soft tissue swelling. No visible acute fracture or dislocation seen. XR/XR foot LT min 3V IMPRESSION: 1. Large calcaneal heel and moderate size retrocalcaneal enthesophytes. 2. Moderate bimalleolar soft tissue swelling. 3. No visible acute fracture or dislocation seen. 4. There is hallux valgus deformity first digit. 5. There are several lucencies in the calcaneus similar to previous study.
[2023-08-10 12:04] VITALS: BP 160/98; PULSE 112; O2SAT 99
[2023-08-10 12:16] VITALS: BP 181/93; PULSE 104; RESP 18; TEMP 37.1; O2SAT 98; BMI 33.7
[2023-08-10 12:37] LABS: MANUAL DIFF FLAG NO
[2023-08-10 12:39] LABS: Basophils Percent Auto 0.3 % (0-2); Eosinophils Absolute Auto 0.1 X10*3/uL (0.0-0.4); Eosinophils Percent Auto 1.7 % (0-4); Hematocrit 30.3 % (42.0-52.0); Hemoglobin 9.4 g/dl (14.0-18.0); Imm Gran Abs Auto 0.06 X10*3/uL (0.00-0.03); Imm Gran Pct Auto 0.8 % (0.0-0.4); Lymphocytes Absolute Auto 2.8 X10*3/uL (1.2-4.9); Lymphocytes Percent Auto 39.1 % (20-40); Mean Corpuscular Hemoglobin 24.9 pg (27.0-33.0); Mean Corpuscular Volume 80.4 fL (80.0-98.0); Mean Platelet Volume 9.1 fL (9.4-12.4); Monocytes Absolute Auto 0.4 X10*3/uL (0.1-1.2); Monocytes Percent Auto 5.6 % (2-11); Neutrophils Absolute Auto 3.7 x10*3/uL (2.0-8.3); Neutrophils Percent Auto 52.5 % (45-73); Platelet Count 197 X10*3/uL (160-400); Red Blood Count 3.77 X10*6/uL (4.60-5.80); Red Cell Distribution Width 15.1 % (11.0-16.0); White Blood Count 7.1 X10*3/uL (4.8-10.8)
[2023-08-10 12:49] LABS: Lactic Acid 1.4 mmol/L (0.5-2.0)
[2023-08-10 12:54] LABS: Alanine Aminotransferase 16 U/L (0-40); Albumin Level 2.9 g/dL (3.5-5.0); Alkaline Phosphatase 133 U/L (39-117); Anion Gap 12 (12-20); Aspartate Amino Transferase 14 U/L (5-37); Bilirubin Total 0.4 mg/dL (0.0-1.0); Blood Urea Nitrogen 18 mg/dL (9-16); Calcium 8.9 mg/dL (8.4-10.2); Carbon Dioxide 27 mmol/L (22-29); Chloride 103 mmol/L (96-108); Creatinine Clr Calc Pharmacy 87.7; Estimated Glomerular Filt Rate 59; Glucose Random 313 mg/dL (60-115); Sodium 138 mmol/L (135-145); Total Protein 8.3 g/dL (6.5-8.0)
--- NOTE | 2023-08-10 13:01 | ED.WOUNDLAC ---
HPI - Wound/Laceration General Chief Complaint: Wound/Laceration Stated Complaint: L LEG WOUND Time Seen by Provider: 08/10/23 12:58 Source: patient and old records reviewed Mode of arrival: EMS Limitations: no limitations History of Present Illness HPI narrative: 67 yo male with hx of MRSA of L heel, osteomyelitis, SILVA, anemia, PAD treated by Dr. Rivera DM, current wound of L foot undergoing IV daptomycin therapy via R arm PICC at [facility]. He notes it is not working and his last dose is 08/15. He states he has more redness, pain, swelling and now has newer open weeping lesions with increased pain and swelling. He states he finally couldn't wait to be treated. Onset (ago): month(s) Extremity Location: left: lower leg and foot Place: home Patient tetanus UTD: Yes Context: other Associated symptoms: pain and other (drainage, swelling, redness) Treatments prior to arrival: bandage and other (IV antibiotics) Related Data Home Medications Medication Instructions Recorded Confirmed atorvastatin 20 mg tablet 1 tab PO DAILY 10/13/21 07/03/23 metoprolol succinate 50 mg 50 mg PO DAILY 10/13/21 07/03/23 tablet,extended release 24 hr amlodipine 2.5 mg tablet 1 tab PO DAILY 11/12/22 07/03/23 insulin aspart U-100 100 unit/mL See Protocol subcut QIDACHS 07/03/23 07/03/23 (3 mL) subcutaneous pen (Novolog FlexPen U-100 Insulin aspart) insulin glargine 100 unit/mL 80 unit subcut BID 07/03/23 07/03/23 subcutaneous solution (Lantus U-100 Insulin) Previous Rx's Medication Instructions Recorded acetaminophen 325 mg tablet 650 mg (2 x 325 mg) PO Q6H PRN 07/10/23 Pain, Mild (Pain Scale 1-3) #60 tabs gabapentin 300 mg capsule 600 mg (2 x 300 mg) PO 07/10/23 BID@0800,1700 #60 caps gabapentin 400 mg capsule 800 mg (2 x 400 mg) PO BEDTIME #30 07/10/23 caps lisinopril 10 mg tablet 10 mg PO DAILY #30 tabs 07/10/23 oxycodone 5 mg tablet 5 mg PO Q4H PRN Pain, Severe (Pain 07/10/23 Scale 7-10) #14 tabs daptomycin 700 mg/100 mL in 0.9 % 822 mg (117.4286 mL) IV DAILY 36 07/11/23 sodium chlor intravenous piggyback days Allergies Allergy/AdvReac Type Severity Reaction Status Date / Time No Known Allergies Allergy Verified 07/26/23 10:44 [No Known Allergies*] Review of Systems Review of Systems: Constitutional : No Fever, No Chills ENT/Mouth : No sore throat, No Rhinorrhea Eyes: No Eye Pain, No Swelling, No Redness Cardiovascular : No Chest Pain, No SOB, pos edema Respiratory : No Cough, No Sputum Gastrointestinal : No Nausea, No Vomiting, No Diarrhea, No abdominal Pain Genitourinary : No Dysuria, No Hematuria Musculoskeletal : No joint pain, No Myalgias, No Joint Swelling Skin : pos Skin Lesions, positive skin rash Neuro : No Weakness, No Numbness, No Headache Psych : No Anxiety, No Depression Heme/Lymph: No Bruising, No Bleeding,No Lymphadenopathy Endocrine : No Polyuria, No Polydipsia All other systems reviewed and are negative [facility] Past Medical History Attestation statement: The following information was validated with the patient. Source: old records reviewed Medical History PAD (peripheral artery disease) MRSA bacteremia DM foot Acute renal failure Hyperkalemia Type 2 diabetes mellitus with foot ulcer Lymphedema Hypertension Substance use disorder Diabetes mellitus Opiate use B12 deficiency anemia Surgical History H/O colonoscopy Social History Social History Household Members: Family Housing: House Do you presently have visiting nurse or other home services: Yes Alcohol intake: never Comment: patient refused chair alarm Patient Tobacco Use Status: Never used Tobacco Second Hand Smoke Exposure: No Substance Use Type: Crack/Cocaine and Heroin Advance Directives: Yes Advance Directives on File: Yes Advance Directives Date on File: 07/04/23 service: No Current occupational status: disabled Physical Exam Vital Signs: Vital Signs: Last Vital Signs Temp 98.7 F 08/10/23 12:16 Pulse 104 H 08/10/23 12:16 Resp 18 08/10/23 12:16 BP 181/93 H 08/10/23 12:16 Pulse Ox 98 08/10/23 12:16 O2 Del Method Room Air 08/10/23 12:16 BMI result Body Mass Index 33.7 Appearance: Alert. Oriented X3. No acute distress. Eyes: Pupils equal, round and reactive to light. ENT: Pharynx normal. Neck: Normal inspection. Neck supple. CVS: Normal heart rate and rhythm. Pulses normal. Respiratory: No respiratory distress. Breath sounds normal. Abdomen: Soft and nontender. Skin: Skin warm and dry. Normal skin color. Normal skin turgor. Extremities: L leg superficial shallow ulcerations on anterior yung and posterior yung - L heel open draining wound, now lateral malleolus swollen red boggy hot area with yellow drainage and odor. foot is warm to the touch Neuro: Oriented X 3. No motor deficit. No sensory deficit. Medications Administered Discontinued Medications Generic Name Dose Route Start Last Admin Trade Name Freq PRN Reason Stop Dose Admin Vancomycin HCl 2,000 mg in 500 mls @ 250 mls/hr 08/10/23 13:20 08/10/23 13:49 Vancomycin/Ns IV 08/10/23 15:19 250 mls/hr ONCE ONE Administration Medical Decision Making Medical Decision Making [facility] Narrative: 67 yo male with hx of MRSA of L heel, osteomyelitis, SILVA, anemia, PAD treated by Dr. Rivera, DM, current wound of L foot undergoing IV daptomycin therapy via R arm PICC at [facility] here with c/o L foot worsening wounds, redness, drainage and swelling - already on daptomycin at this time has hx of MSSA will obtain US to r/o DVT, basic labs, start of vancomycin given we have culture specific bacteria, Planned admit. He states he would never have an amputation at this point if needed. Differential Diagnosis Differential Diagnoses: The differential diagnosis associated with the presentation includes osteo, cellulitis Admission/Observation Consideration of admission/observation: Escalation of care including admission/observation considered admit for antibiotics Consult Healthcare Provider Management of the patient was discussed with: Hospitalist (will admit) Lab Data [facility] Lab Attestation statement: I reviewed the patient's lab results. 08/10/23 12:32 08/10/23 12:32 Labs: Lab Results 08/10/23 Range/Units 12:32 WBC 7.1 (4.8-10.8) X10*3/uL RBC 3.77 L D (4.60-5.80) X10*6/uL Hgb 9.4 L (14.0-18.0) g/dl Hct 30.3 L (42.0-52.0) % MCV 80.4 (80.0-98.0) fL MCH 24.9 L (27.0-33.0) pg MCHC 31.0 (31.0-36.0) g/dl RDW 15.1 (11.0-16.0) % Plt Count 197 (160-400) X10*3/uL MPV 9.1 L (9.4-12.4) fL Immature Gran % (Auto) 0.8 H (0.0-0.4) % Neut % (Auto) 52.5 (45-73) % Lymph % (Auto) 39.1 (20-40) % Bea[place]gard % (Auto) 5.6 (2-11) % Eos % (Auto) 1.7 (0-4) % Baso % (Auto) 0.3 (0-2) % Lymph # (Auto) 2.8 (1.2-4.9) X10*3/uL [place]gard # (Auto) 0.4 (0.1-1.2) X10*3/uL Eos # (Auto) 0.1 (0.0-0.4) X10*3/uL Baso # (Auto) 0.0 (0.0-0.2) X10*3/uL Abs Immat Gran (auto) 0.06 H (0.00-0.03) X10*3/uL Absolute Neuts (auto) 3.7 (2.0-8.3) x10*3/uL Absolute Nucleated RBC 0.000 (0.0-0.012) X10*3/uL Nucleated RBC % (auto) 0.0 (0.0-0.2) /100WBC ESR 103 H (0-15) MM/HR Sodium 138 (135-145) mmol/L Potassium 4.0 (3.3-5.1) mmol/L Chloride 103 (96-108) mmol/L Carbon Dioxide 27 (22-29) mmol/L Anion Gap 12 (12-20) BUN 18 H (9-16) mg/dL Creatinine 1.23 (0.5-1.4) mg/dL Estim Creat Clear Calc 87.7 Estimated GFR 59 Random Glucose 313 H (60-115) mg/dL Lactic Acid 1.4 (0.5-2.0) mmol/L Calcium 8.9 (8.4-10.2) mg/dL Total Bilirubin 0.4 (0.0-1.0) mg/dL AST 14 (5-37) U/L ALT 16 (0-40) U/L Alkaline Phosphatase 133 H (39-117) U/L Total Creatine Kinase 55 (38-174) U/L C-Reactive Protein 3.24 H (< or = 0.50) mg/dL Total Protein 8.3 H (6.5-8.0) g/dL Albumin 2.9 L (3.5-5.0) g/dL Independent Interpretation I performed an independent interpretation of an: Plain X-Ray (unchanged from prior) and Ultrasound (no DVT) Radiology Impression Discussion of test interpretation with radiology: I have reviewed the radiologist's reading. External Record Review External record reviewed: Inpatient record Discharge Plan Discharge Clinical Impression: Cellulitis Qualifiers: Site of cellulitis: extremity Site of cellulitis of extremity: lower extremity Laterality: left Qualified Code(s): L03.116 - Cellulitis of left lower limb Foot ulcer Qualifiers: Laterality: left Non-pressure ulcer stage: unspecified non-pressure ulcer stage Qualified Code(s): L97.529 - Non-pressure chronic ulcer of other part of left foot with unspecified severity Patient Disposition: Admitted As Inpatient Prescriptions: No Action amlodipine 2.5 mg tablet 1 tab PO DAILY atorvastatin 20 mg tablet 1 tab PO DAILY Hold Instructions: Resume on 08/16/23. metoprolol succinate 50 mg tablet extended release 24 hr 50 mg PO DAILY insulin glargine [Lantus U-100 Insulin] 100 unit/mL solution 80 unit subcut BID insulin aspart U-100 [Novolog FlexPen U-100 Insulin] 100 unit/mL (3 mL) insulin pen See Protocol subcut QIDACHS Protocol: Insulin Correction Scale Less than or equal to 110 ---- Give (units): 0 111 to 150 Give (units): 0 151 to 200 Give (units): 2 201 to 250 Give (units): 4 251 to 300 Give (units): 6 301 to 350 Give (units): 8 Greater than 350 Give (units): 10 Call MD if Blood Glucose > : 350 acetaminophen 325 mg Tablet 650 mg PO Q6H PRN (Reason: Pain, Mild (Pain Scale 1-3)) Qty: 60 0RF gabapentin 400 mg Capsule 800 mg PO BEDTIME Qty: 30 0RF gabapentin 300 mg Capsule 600 mg PO BID@0800,1700 Qty: 60 0RF lisinopril 10 mg tablet 10 mg PO DAILY Qty: 30 0RF oxycodone 5 mg Tablet 5 mg PO Q4H PRN (Reason: Pain, Severe (Pain Scale 7-10)) Qty: 14 0RF Rx Instructions: Partial Fill upon patient request. daptomycin in 0.9 % sod chlor 700 mg/100 mL piggyback 822 mg IV DAILY 36 Days Rx Instructions: administer over 30 mins end date 08/15/23
--- NOTE | 2023-08-10 13:01 | PC.NURSE ---
patient alert and oriented, respirations even and unlabored. resting quietly in room, offering no complaints. patient has wound to left foot with redness, swelling, and warmth now progressing up the extremity. picc line in place, working properly at this time able to be flushed and obtain labs. awaiting ed provider at this time, call daugherty within reach
[2023-08-10] MEDS: vancomycin/NS 2,000 MG/500 ML PLAST..BAG 250 MG IV (13:49)
--- NOTE | 2023-08-10 13:50 | PC.NURSE ---
medicated per the MAR - antibiotics infusing. ultrasound at bedside, patient continues to offer no complaints
[2023-08-10 14:21] LABS: C Reactive Protein 3.24 mg/dL (< or = 0.50)
[2023-08-10 14:22] LABS: Erythrocyte Sedimentation Rate 103 MM/HR (0-15)
--- NOTE | 2023-08-10 16:03 | P.HPHOSP_ITS ---
History of Present Illness Date of Service: 08/10/23 Chief Complaint: Worsening leg cellulitis 67-year-old male with history of MRSA of left heel with osteomyelitis, SILVA, anemia, P [address] Schwartz in the past however has refused amputation. Patient was discharged after left admission on IV daptomycin via PICC until 08/15/2023. He notes that his wound has worsened and has now become more painful prompting him to asked to be transferred to the emergency room. In the emergency room his CRP was elevated and he was given a dose of IV vancomycin. Left lower extremity with multiple open wounds and weeping. Venous duplex of left lower extremity negative for acute thrombus. Discussed with vascular surgery; he will be admitted on IV antibiotics and vascular surgery will see. Review of Systems 2 Review of Systems: Denies chest pain Denies shortness of breath Denies nausea vomiting diarrhea Denies fever chills PMFSH Medical History PAD (peripheral artery disease) MRSA bacteremia DM foot Acute renal failure Hyperkalemia Type 2 diabetes mellitus with foot ulcer Lymphedema Hypertension Substance use disorder Diabetes mellitus Opiate use B12 deficiency anemia Surgical History H/O colonoscopy Social History Household Members: Family Housing: House Do you presently have visiting nurse or other home services: Yes Alcohol intake: never Comment: patient refused chair alarm Patient Tobacco Use Status: Never used Tobacco Second Hand Smoke Exposure: No Substance Use Type: Crack/Cocaine and Heroin Advance Directives: Yes Advance Directives on File: Yes Advance Directives Date on File: 07/04/23 service: No Current occupational status: disabled Meds Allergies Allergy/AdvReac Type Severity Reaction Status Date / Time No Known Allergies Allergy Verified 07/26/23 10:44 [No Known Allergies*] Active Medications: Current Medications Acetaminophen (Acetaminophen 325 Mg Tablet) 650 mg PO Q6H PRN PRN Reason: Pain, Mild (Pain Scale 1-3) Al Hydroxide/Mg Hydroxide (Magnesium Hydrox/Alum Hydrox 30 Ml Oral.Susp) 30 ml PO Q4H PRN PRN Reason: Heartburn/Nausea Dextrose (Dextrose 50 % 25 Gm/50 Ml Syringe) 25 gm IVPUSH Q15M PRN; Protocol PRN Reason: per Hypoglycemia Standing Ord. Docusate Sodium (Docusate Sodium 100 Mg Capsule) 100 mg PO DAILY PRN PRN Reason: Constipation Glucose (Glucose Gel 15 Gm Gel..Gram.) 15 gm PO Q15M PRN; Protocol PRN Reason: per Hypoglycemia Standing Ord. Cefepime HCl 2 gm/ Sodium (Chloride) 50 mls @ 100 mls/hr IV Q12H [facility] Insulin Human Lispro (Insulin Lispro 100 Unit/Ml 3 Ml Vial) 0 unit SUBCUT QIDACHS [facility]; Protocol Magnesium Hydroxide (Milk Of Magnesia 30 Ml Oral.Susp) 30 ml PO DAILY PRN PRN Reason: Constipation Oxycodone HCl (Oxycodone Hcl Immed Release 5 Mg Tablet) 5 mg PO Q4H PRN PRN Reason: Pain, Severe (Pain Scale 7-10) Pharmacy Consult (Consult Rx Vancomycin Dosing) 1 each MISCELLANE DAILY PRN PRN Reason: Consult order Sodium Chloride (0.9 % Sodium Chloride Flush 3 Ml Syringe) 3 ml IVFLUSH [facility] Home Medications Medication Instructions Recorded Confirmed Last Taken Type atorvastatin 20 mg tablet 1 tab PO DAILY 10/13/21 07/03/23 06/28/23 History metoprolol succinate 50 mg 50 mg PO DAILY 10/13/21 07/03/23 06/28/23 History tablet,extended release 24 hr amlodipine 2.5 mg tablet 1 tab PO DAILY 11/12/22 07/03/23 06/28/23 History insulin aspart U-100 100 unit/mL See Protocol subcut QIDACHS 07/03/23 07/03/23 Unknown History (3 mL) subcutaneous pen (Novolog FlexPen U-100 Insulin aspart) insulin glargine 100 unit/mL 80 unit subcut BID 07/03/23 07/03/23 Unknown History subcutaneous solution (Lantus U-100 Insulin) Physical Exam 2 Vital Signs and Narrative: Vital Signs: Last Vital Signs Temp 98.7 F 08/10/23 12:16 Pulse 104 H 08/10/23 12:16 Resp 18 08/10/23 12:16 BP 181/93 H 08/10/23 12:16 Pulse Ox 98 08/10/23 12:16 O2 Del Method Room Air 08/10/23 12:16 BMI result Body Mass Index 33.7 Const: Other: Awake alert no acute distress Resp: Other: Clear to auscultation bilaterally no rales rhonchi wheezes Cardio: Other: No S4; positive S1-S2; no S3 murmurs rubs or gallops GI: Other: Soft nontender nondistended normoactive bowel sounds Neuro: Other: Cranial nerves 2-12 grossly intact as tested. Motor is 5/5 all extremities. Sensation is decreased mid tibia distally bilaterally. Cognition appropriate Extrem: Other: Left lower extremity with superficial ulcerations anterior posterior yung; there is a left heel open draining wound along with a lateral malleolus that is swollen red and boggy and somewhat high. There is yellow purulent drainage noted Results Labs 08/10/23 12:32 08/10/23 12:32 Labs: Laboratory Results - last 24 hr 08/10/23 12:32 MCV 80.4 MCH 24.9 L MCHC 31.0 RDW 15.1 Plt Count 197 MPV 9.1 L Immature Gran % (Auto) 0.8 H Neut % (Auto) 52.5 Lymph % (Auto) 39.1 [place] % (Auto) 5.6 Eos % (Auto) 1.7 Baso % (Auto) 0.3 Lymph # (Auto) 2.8 [place] # (Auto) 0.4 Eos # (Auto) 0.1 Baso # (Auto) 0.0 Abs Immat Gran (auto) 0.06 H Absolute Neuts (auto) 3.7 Absolute Nucleated RBC 0.000 Nucleated RBC % (auto) 0.0 ESR 103 H Anion Gap 12 Estim Creat Clear Calc 87.7 Estimated GFR 59 Random Glucose 313 H Lactic Acid 1.4 Calcium 8.9 Total Bilirubin 0.4 AST 14 ALT 16 Alkaline Phosphatase 133 H Total Creatine Kinase 55 C-Reactive Protein 3.24 H Total Protein 8.3 H Albumin 2.9 L Imaging Radiologist's Impressions: Impressions Venous Duplex 08/10/23 13:55 IMPRESSION: No DVT demonstrated in the left lower extremity. Foot X-Ray 08/10/23 14:20 IMPRESSION: 1. Large calcaneal heel and moderate size retrocalcaneal enthesophytes. 2. Moderate bimalleolar soft tissue swelling. 3. No visible acute fracture or dislocation seen. 4. There is hallux valgus deformity first digit. 5. There are several lucencies in the calcaneus similar to previous study. Assessment and Plan (1) Cellulitis: Qualifiers: Laterality: left Site of cellulitis: extremity Site of cellulitis of extremity: lower extremity Qualified Code(s): L03.116 - Cellulitis of left lower limb Status: Acute (2) Diabetic ulcer of left foot: Qualifiers: Diabetic foot ulcer location: heel Diabetes mellitus type: type 2 Non- pressure ulcer stage: unspecified non-pressure ulcer stage Qualified Code(s): E 11.621 - Type 2 diabetes mellitus with foot ulcer; L97.429 - Non-pressure chronic ulcer of left heel and midfoot with unspecified severity Status: Acute Plan 67-year-old male with history of insulin-dependent diabetes peripheral vascular disease and history MRSA bacteremia being treated with IV daptomycin at a long- term care facility presents with worsening of his left lower extremity wounds and increased pain. Now he has purulent discharge from same. 1. MRSA bacteremia in backdrop of diabetic foot ulcers -vancomycin/cefepime(2) -vascular/infectious disease consult -repeat cultures done in ER -pain management with oxycodone 2. Diabetes type 2 requiring insulin -continue outpatient insulin regimen -lispro correctional scale -adjust as indicated 3.HTN -poor control; resume outpatient therapies -adjust as indicated 4. Peripheral neuropathy -continue outpatient gabapentin dosing Full Code Lovenox Patient will require at least 2 midnights going forward for via IV antibiotics and vascular surgery consult; at this point he is failing IV antibiotics and amputation is considered. This cannot be achieved a lesser acute setting Quality Stroke Does the patient have a stroke diagnosis?: No VTE Prior VTE?: No VTE Risk Level:: Medical - moderate - high VTE Device Contraindication: Treatment Not Indicated VTE Drug Contraindication: N/A - Med Ordered
--- NOTE | 2023-08-10 16:22 | PC.NURSE ---
Dressing on left heel and ankle fell off re-dressed draining on left ankle serous fluid. wound red and swollen.
--- NOTE | 2023-08-10 16:24 | PHA.MEDREC ---
Pharmacy Consult ? Medication Reconciliation Pharmacy has completed the medication reconciliation. List from [facility]
--- NOTE | 2023-08-10 16:58 | PC.NURSE ---
Iv dominiqueo still running will hang cefepime when it's done.
[2023-08-10 17:54] LABS: Glucose, Whole Blood 103 mg/dL (60-115)
[2023-08-10] MEDS: cefEPime HCl 2 GM in 0.9 % Sodium Chloride 50 ML IV (17:59)
[2023-08-10 20:31] VITALS: BP 142/57; PULSE 76; RESP 16; TEMP 36.2; O2SAT 97
--- NOTE | 2023-08-10 20:45 | MHC.EDTECH ---
This pct assumed care of pt at 1900 ,vitals taken ,fluids and food offer to Pt ,But refused .
--- NOTE | 2023-08-10 21:04 | MHC.EDTECH ---
PATIENT REFUSE BLOOD SUGAR CHECK ,RN AWARE .
--- NOTE | 2023-08-10 21:07 | PC.NURSE ---
Patient alert and oriented X 4, pt being rude and yelling at [facility] that he wasn't going to let them check his POC. Pt stated he only wanted to speak to the Nurse. This RN went to patient room and reintroduced herself. Patient upset, reporting that he didn't get a supper tray. This RN aplgized and tried explaining to the patient that the kitchen was closed and this RN was not here at that time.Patient did not care and began yelling at this RN demanding to know how long I worked here and why I did not know how to do my job. Patient stating he did not have his meds and for this RN to call [facility] and get his medication list. Patient kept interrupting and would not listen to any f the answers. When offered a turkey sandwich patient started yelling that he was a diabetic and can't eat the bread because it is not healthy You are a nurse, don't you know anything? I could be a nurse, do your job . When asked what his sugar was because he has his own monitor and arnoldo on his phone pt stated it doesn't matter since I haven't eaten and you're not going to give me my insulin anyway . I apologized for the things that were out of my control but he should not talk to me this way when I am only trying to help. Patient continued to yell when this RN left the room. Patient in bed watching tv with call daugherty in hand.
--- NOTE | 2023-08-10 22:38 | PC.NURSE ---
Pt refusing medication and for POC check. (See previous note) made aware.
--- NOTE | 2023-08-10 23:32 | PC.NURSE ---
Patient called this RN to the room reporting that5 he ordered food nd had it delivered to the main ER. This RN called and someone will be bringing it over. This RN asked patient if he was having any pain and he said no, and the only thing that helps with my pain is my gabapentin. Patient ordered milkshake, candy and other food which was brought over by charge nurse.The patient was told that the meal brought in was not under a diabetic diet. Patient started yelling profanities calling tint layer a Bitch and that he could do what he wants. Pt was told that the way he was talking to staff was unaccaptable and will not be tolerated.
--- NOTE | 2023-08-11 00:32 | MHC.EDTECH ---
Patient refused 0000 vitals ,RN Coleen aware ,Pt in his room eating a bag of m&m ,RN Aware .
--- NOTE | 2023-08-11 01:12 | MHC.EDTECH ---
Patient has a continuous glucose monitor the he uses to check his sugar ,0110 was 133 RN Aware ,Pt refused to use the hospital glucose machine ,RN Aware.
[2023-08-11] MEDS: vancomycin HCL 1,250 MG in 0.9 % Sodium Chloride 250 ML 166.67 MG IV (03:21)
[2023-08-11] MEDS: cefEPime HCl 2 GM in 0.9 % Sodium Chloride 50 ML IV (05:08)
--- NOTE | 2023-08-11 06:53 | PC.NURSE ---
Patient refusing, lab draws and vitals checks stating that the carts and machines have been in all the rooms. Pt is not open to listening to anything that this RN has to say and continues to interrupt. This RN passed information along to oncoming RN.
[2023-08-11 08:17] LABS: Basophils Percent Auto 0.4 % (0-2); Eosinophils Absolute Auto 0.1 X10*3/uL (0.0-0.4); Eosinophils Percent Auto 2.1 % (0-4); Hematocrit 30.4 % (42.0-52.0); Hemoglobin 9.4 g/dl (14.0-18.0); Imm Gran Abs Auto 0.04 X10*3/uL (0.00-0.03); Imm Gran Pct Auto 0.7 % (0.0-0.4); Lymphocytes Absolute Auto 2.1 X10*3/uL (1.2-4.9); Lymphocytes Percent Auto 37.3 % (20-40); Mean Corpuscular HGB Conc 30.9 g/dl (31.0-36.0); Mean Corpuscular Hemoglobin 25.1 pg (27.0-33.0); Mean Corpuscular Volume 81.1 fL (80.0-98.0); Mean Platelet Volume 9.2 fL (9.4-12.4); Monocytes Absolute Auto 0.4 X10*3/uL (0.1-1.2); Monocytes Percent Auto 7.1 % (2-11); Neutrophils Absolute Auto 2.9 x10*3/uL (2.0-8.3); Neutrophils Percent Auto 52.4 % (45-73); Platelet Count 177 X10*3/uL (160-400); Red Blood Count 3.75 X10*6/uL (4.60-5.80); Red Cell Distribution Width 15.1 % (11.0-16.0); White Blood Count 5.6 X10*3/uL (4.8-10.8)
--- NOTE | 2023-08-11 08:20 | MHC.EDTECH ---
patient was very inappropriate and swearing and calling staff names when he was asked if staff could check his POC glucose. Patient stated he has a dexcom but would not let us know what his dexcom said. Continued to swear, call staff fat and ugly. Staff was unable to talk to the patient due to the patient talking over staff. Security was called.
--- NOTE | 2023-08-11 08:48 | MHC.EDTECH ---
patient was inconsiderate to security when they were called down here. Patient continued to swear, yell and call staff names. Patient was threatening to throw his urinal at staff with urine in it. Patient continuing to be uncooperative and disrespectful and refusing care.
[2023-08-11 09:02] LABS: Alanine Aminotransferase 17 U/L (0-40); Albumin Level 2.7 g/dL (3.5-5.0); Alkaline Phosphatase 117 U/L (39-117); Anion Gap 12 (12-20); Aspartate Amino Transferase 16 U/L (5-37); Bilirubin Total 0.3 mg/dL (0.0-1.0); Blood Urea Nitrogen 16 mg/dL (9-16); Calcium 8.7 mg/dL (8.4-10.2); Carbon Dioxide 26 mmol/L (22-29); Chloride 105 mmol/L (96-108); Estimated Glomerular Filt Rate > 60; Glucose Random 247 mg/dL (60-115); Potassium 3.8 mmol/L (3.3-5.1); Sodium 139 mmol/L (135-145); Total Protein 7.9 g/dL (6.5-8.0)
--- NOTE | 2023-08-11 09:04 | PC.NURSE ---
ON ASSUMING CARE OF THIS PT AT 0700 THIS RN WENT INTO THE PT'S ROOM TO INTRODUCE MYSELF. IMMEDIATELY AFTER SAYING GOOD MORNING THE PT STATED MY URINAL IS THERE AND YOU HAVEN'T EMPTIED IT . THIS RN RESPONDED SIR I JUST GOT HERE AND I'M GOING AROUND TO MEET ALL MY PTS . THE PT STATED FINE I'M GONNA THROW IT ON THE FLOOR AND YOU'LL HAVE TO CLEAN IT UP YOU FAT BITCH . THIS RN RESPONDED I DON'T APPRECIATE YOU SPEAKING TO ME THAT WAY , I EXITED HIS ROOM AND CLOSED THE DOOR. PT CONTINUED CALLING ME FAT BITCH AFTER I EXITED HIS ROOM. THIS RN DID NOT RESPOND.
--- NOTE | 2023-08-11 09:20 | PC.NURSE ---
PT REFUSED TO HAVE HIS POC DONE AND REFUSED TO TELL ME WHAT HIS SUGAR READING WAS ON HIS DEXACAN MONITOR. HE STATED I DON'T WANT YOU'RE INSULIN ANYWAY, YOU DON'T KNOW WHAT YOU'RE DOING . THIS RN EXITED THE PT'S ROOM.
--- NOTE | 2023-08-11 09:28 | MHC.EDTECH ---
patient started to walk to the bathroom and staff got a wheelchair due to the patient not being able to weight bear on that foot. While patient was in the bathroom, linens were changed and room was cleaned.
--- NOTE | 2023-08-11 10:31 | MHC.CM.PN ---
PT PRESENTED FROM [facility] WHERE HE WAS RECEIVING STR AND IV ABX PT TYPICALLY LIVES AT HOME WITH HIS MOTHER AND IS INDEPENDENT WITH SELF CARE HE USES A CANE, WALKER AND WHEEL CHAIR HE HAS A HCP ON FILE PCP: DIPAK PATRICK IMM DELIVERED PER HOSPITALIST, PT WILL BE DISCHARGED ON DIFFERENT MEDS UPDATES SENT TO [facility] THEY WERE ALSO ASKED TO SUBMIT FOR AUTH FOR PTS RETURN TODAY PT WILL NEED BLS TRANSPORT
--- NOTE | 2023-08-11 10:49 | PC.NURSE ---
pt refused to answer pain assessment, he stated you're my biggest pain and what are you doing in here anyway . this rn exited the pt's room.
--- NOTE | 2023-08-11 11:49 | PC.NURSE ---
no distress. resting.
--- NOTE | 2023-08-11 12:30 | PC.NURSE ---
pt refused to have his poc done, he also refused to tell us the reading on his poc machine. this rn brought pt's lunch tray to his room, pt yelled stated get out of here with that, I don't want your food . I exited the room.
--- NOTE | 2023-08-11 12:58 | PC.NURSE ---
refused labs to be done by phlebotomy. I'm leaving here anyway so theres no need to do it .
--- NOTE | 2023-08-11 13:02 | MHC.EDTECH ---
pharmacy called about the vancomycin lab that was ordered for 1200 today. this va underwriter was told the patient refused and this va underwriter made pharmacy aware.
--- NOTE | 2023-08-11 13:40 | PC.NURSE ---
Addendum entered by Colton Sam RN 08/11/23 13:41: no new orders Original Note: Dr. Campos made aware that pt refused vanco level to be drawn.
--- NOTE | 2023-08-11 14:49 | P.DS_ITS ---
DS: Providers Provider Date of Service: 09/02/23 Date of admission: 08/10/23 15:52 Date of discharge: 08/11/23 Primary care physician: Corby Little MD Consults: 08/10/23 16:00 Consult to Infectious Diseases Stat Consulting Provider: [facility] Infectious Disease Reason for consultation: Osteomyelitis Has provider been notified: Yes DS: Diagnosis Discharge Diagnosis (1) Cellulitis: Status: Acute (2) Diabetic ulcer of left foot: Status: Acute DS: Summary Hospital Course Hospital Course: 67-year-old male with history of MRSA of left heel with osteomyelitis, SILVA, anemia, P [address] Schwartz in the past however has refused amputation. Patient was discharged after left admission on IV daptomycin via PICC until 08/15/2023. He notes that his wound has worsened and has now become more painful prompting him to asked to be transferred to the emergency room. In the emergency room his CRP was elevated and he was given a dose of IV vancomycin. Left lower extremity with multiple open wounds and weeping. Venous duplex of left lower extremity negative for acute thrombus. Discussed with vascular surgery; he will be admitted on IV antibiotics and vascular surgery will see. Hospital Course Admitted to hospital and started on vanco and cefepime. Case discussed with infectious disease and vascular surgery; he ultimately need amputation. Discussed with patient who is hesitant to get amputation. Wishes to be discharged on vanco and cefepime as a trial and follow-up with vascular as an outpatient. Discussed with vascular who is in agreement. He will be discharge back to facility on vancomycin and cefepime acute follow-up with vascular surgery as an outpatient Time Attestation Discharge coordination time: Greater than 30 minutes Quality: Safe Use of Opioids Does Pt have an Active Cancer Diagnosis on the Problem List?: No Quality: Stroke Does the patient have a stroke diagnosis?: No Physical Exam Vital Signs: Vital Signs: Last Vital Signs Temp 97.1 F 08/10/23 20:31 Pulse 76 08/10/23 20:31 Resp 16 08/10/23 20:31 BP 142/57 H 08/10/23 20:31 Pulse Ox 97 08/10/23 20:31 O2 Del Method Room Air 08/10/23 20:31 BMI result Body Mass Index 33.7 Const: Other: Awake alert no acute distress Resp: Other: Clear to auscultation bilaterally no rales rhonchi wheezes Cardio: Other: No S4; positive S1-S2; no S3 murmurs rubs or gallops GI: Other: Soft nontender nondistended normoactive bowel sounds Neuro: Other: Cranial nerves 2-12 grossly intact as tested. Motor is 5/5 all extremities. Sensation is decreased mid tibia distally bilaterally. Cognition appropriate Extrem: Other: Left lower extremity with superficial ulcerations anterior posterior yung; there is a left heel open draining wound along with a lateral malleolus that is swollen red and boggy and somewhat high. There is yellow purulent drainage noted DS: Data Data Completed and Pending Completed studies during hospitalization [Text1]: Procedures Excision of Left Foot Subcutaneous Tissue and Fascia, Open Approach (11/12/22) Excision of Right Foot Subcutaneous Tissue and Fascia, Open Approach (11/12/22) Insertion of Infusion Device into Superior Vena Cava, Percutaneous Approach (07/03/23) Introduction of Remdesivir Anti-infective into Peripheral Vein, Percutaneous Approach, [employer] (10/13/21) Plain Radiography of Aorta and Bilateral Lower Extremity Arteries using Low Osmolar Contrast (07/03/23) Ultrasonography of Superior Vena Cava, Guidance (07/03/23) Labs on day of discharge: Laboratory Results - last 24 hr 08/10/23 08/11/23 17:49 08:10 WBC 5.6 RBC 3.75 L Hgb 9.4 L Hct 30.4 L MCV 81.1 MCH 25.1 L MCHC 30.9 L RDW 15.1 Plt Count 177 MPV 9.2 L Immature Gran % (Auto) 0.7 H Neut % (Auto) 52.4 Lymph % (Auto) 37.3 [place] % (Auto) 7.1 Eos % (Auto) 2.1 Baso % (Auto) 0.4 Lymph # (Auto) 2.1 [place] # (Auto) 0.4 Eos # (Auto) 0.1 Baso # (Auto) 0.0 Abs Immat Gran (auto) 0.04 H Absolute Neuts (auto) 2.9 Absolute Nucleated RBC 0.000 Nucleated RBC % (auto) 0.0 Sodium 139 Potassium 3.8 Chloride 105 Carbon Dioxide 26 Anion Gap 12 BUN 16 Creatinine 1.10 Estim Creat Clear Calc 98.0 Estimated GFR > 60 POC Glucose 103 Random Glucose 247 H Calcium 8.7 Total Bilirubin 0.3 AST 16 ALT 17 Alkaline Phosphatase 117 Total Protein 7.9 Albumin 2.7 L Preliminary micro results at discharge 08/10/23 12:32 Blood Culture - Preliminary Blood - Venous No growth after 24 hours. Discharge Plan Discharge Anticipated Discharge Date/Time: 08/11/23 14:43 Patient Disposition: Xfer SNF Discharge Diagnosis: Diabetic ulcer left foot Referrals: Corby Little MD [Primary Care Provider] - 1 Week Discharge Medications: New cefepime 2 gram Recon Soln 2 g IV Q12H Qty: 12 0RF vancomycin 1.5 gram recon soln 1 g IV Q12H 28 Days Continued amlodipine 2.5 mg tablet 1 tab PO DAILY metoprolol succinate 50 mg tablet extended release 24 hr 50 mg PO DAILY insulin glargine [Lantus U-100 Insulin] 100 unit/mL solution 90 unit subcut BID insulin aspart U-100 [Novolog FlexPen U-100 Insulin] 100 unit/mL (3 mL) insulin pen See Protocol subcut QIDACHS Protocol: Insulin Correction Scale Less than or equal to 110 ---- Give (units): 0 111 to 150 Give (units): 0 151 to 200 Give (units): 2 201 to 250 Give (units): 4 251 to 300 Give (units): 6 301 to 350 Give (units): 8 Greater than 350 Give (units): 10 Call if Blood Glucose > : 350 acetaminophen 325 mg Tablet 650 mg PO Q6H PRN (Reason: Pain, Mild (Pain Scale 1-3)) Qty: 60 0RF gabapentin 300 mg Capsule 600 mg PO BID@0800,1700 Qty: 60 0RF lisinopril 10 mg tablet 10 mg PO DAILY Qty: 30 0RF oxycodone 5 mg Tablet 5 mg PO Q4H PRN (Reason: Pain, Severe (Pain Scale 7-10)) Qty: 14 0RF Rx Instructions: Partial Fill upon patient request. Debrox 6.5 % Drops 5 drp OTIC (EAR) LEFT TID gabapentin 400 mg capsule 900 mg PO BEDTIME Discontinued daptomycin in 0.9 % sod chlor 700 mg/100 mL piggyback 822 mg IV DAILY 36 Days Rx Instructions: administer over 30 mins end date 08/15/23 Discharge Orders: Discharge Order (Routine); Ordered 08/11/23 Ordered By: Jakob Campos Diet: Advance to usual diet Activity on Discharge: As tolerated Stand Alone Forms: Patient Portal Discharge page Care Plan Goals: Stop daptomycin. Vancomycin and cefepime as ordered Health Concerns: Resume all other outpatient therapies as taken before hospital Plan of Treatment: Follow-up needs to be made with Dr. Rivera vascular surgery within 2 weeks Assessment: See discharge summary
--- NOTE | 2023-08-11 15:10 | PC.NURSE ---
pt refused vanco x2 attempts. first attempt pt stated I don't want no vanco from you . second attempt pt stated I don't want no vanco from you, I already told you that, plus I'm leaving anyway . Dr. Campos aware, no new orders. assistant accounting manager at bedside. Pt going to [facility] in [place]. transportation booked for 1700 pick-up, pt aware of plan.
--- NOTE | 2023-08-11 17:26 | PC.NURSE ---
pt refused all care and meds from this RN.
--- NOTE | 2023-08-11 17:34 | PC.NURSE ---
Addendum entered by Colton Sam RN 08/11/23 17:39: refused vs. Original Note: pt picked up by ambulance, told the ambulance drivers that I will bitch slap you if you don't do things my way . he asked this rn to give his vanco to the trackless trolley driver. this rn told him no, I am not allowed to do that . the pt got upset and began calling me names. pt left via stretcher.
== END 2023-08-11 17:00 | disposition skilled nursing facility (03) | DRG 603 ==
LOC: HO.ED 15:22 → HO.EDOVER 16:03
PROVIDERS: Admitting Provider Hospitalist; Emergency Provider Emergency Medicine; PCP Internal Medicine; Visit Provider Hospitalist
DX: L03.116 Cellulitis of left lower limb (principal); L97.829 Non-pressure chronic ulcer of other part of left lower leg with unspecified severity; E11.42 Type 2 diabetes mellitus with diabetic polyneuropathy; E11.51 Type 2 diabetes mellitus with diabetic peripheral angiopathy without gangrene; I10 Essential (primary) hypertension; E11.621 Type 2 diabetes mellitus with foot ulcer; Z86.14 Personal history of Methicillin resistant Staphylococcus aureus infection; Z79.4 Long term (current) use of insulin; Z79.899 Other long term (current) drug therapy
CPT/HCPCS: 36415; 73630; 80053; 82550; 82947; 83605; 85025; 85652; 86140; 87040; 93971; 99284; J0692; J3370; J3371

== ENCOUNTER → 2023-08-10 15:52 | Outpatient (BNV) | payer OTHER, SELFPAY | PROVIDERS: Admitting Provider Hospitalist; Emergency Provider Emergency Medicine; PCP Internal Medicine; Visit Provider Hospitalist | DX: L03.116 Cellulitis of left lower limb (principal); E11.621 Type 2 diabetes mellitus with foot ulcer; L97.429 Non-pressure chronic ulcer of left heel and midfoot with unspecified severity | CPT/HCPCS: 99223; 99239 ==